=== PATIENT | female | born 1945 | race Caucasian/White ===

== ENCOUNTER 2023-07-27 12:44 | Inpatient (IN) | payer MEDICARE, OTHER, SELFPAY ==
[2023-07-27] VITALS (12 sets, daily range): BP systolic 101–169; BP diastolic 53–128; BMI 47.7; BMI 46.1
--- NOTE | 2023-07-27 07:59 | ED.GENMED ---
History of Present Illness
<DAVID Martin - Last Filed: 07/27/23 17:09>
General
Chief Complaint: Breathing Problem
Exam Limitations: none
Time Seen by Provider: 07/27/23 07:59
Nursing documentation reviewed up to this point in time: agreed with
History of Present Illness
History of Present Illness:
Patient is a 77-year-old female past medical history of COPD CHF on 2 L nasal cannula daily, chronic bilateral lymphedema of bilateral lower extremities presents to the ER for evaluation of shortness of breath. Patient reports she started with a
cough last night and has had worsening shortness of breath since.
Pt denies any fevers.
Patient has missed several doses of her Lasix.
Past History
<DAVID Martin - Last Filed: 07/27/23 17:09>
Past History
ED Past Medical History: Arrthythmia (Frequent PVCs), Asthma, CHF, HTN, Hypercholesterolemia, NIDDM, Other (Chronic lymphedema) and Other (Right lower extremity DVT October 2019)
ED Past Surgical History: Gynecological (Several D&Cs, miscarriage), Tonsilectomy and Other (Cancerous mass removed from right leg 20 years ago. Breast mass removed noncancerous.)
Social History
Tobacco: Non-smoker
Alcohol: None
Personal:
Living: with family
Employment: Retired
Family History
Family History: Other (Noncontributory)
Review of Systems
<DAVID Martin - Last Filed: 07/27/23 17:09>
Review of Systems
All Other Systems: ROS reviewed and negative except as documented in HPI and ROS
Constitutional: Denies fever
EENT: Reports no symptoms
Respiratory: Reports cough and trouble breathing
Cardiac: Reports no symptoms
ABD/GI: Reports no symptoms
Musculoskeletal: Reports other (chronic l/e edema )
Skin: Reports no symptoms
Psychiatric: Reports no symptoms
Phy Exam
<DAVID Martin - Last Filed: 07/27/23 17:09>
General Physical Exam
General Presentation: no apparent distress
General age: appears stated age
General Skin: warm and dry
General Habitus: elderly
General Mental: alert
General Hydration: appears well hydrated
Cardiovascular Exam
Cardiovascular Exam: regular rate/rhythm and normal peripheral pulses
Pulmonary Exam
Pulmonary Exam: generalized wheezing and other (+ cough )
Neurological Exam
Neurological Exam: alert and oriented x3
Musculoskeletal Exam
Musculoskeletal Exam: other (Chronic bilateral lymphedema with chronic skin changes )
Skin Exam
Skin Exam: normal color and warm/dry
Psychiatric Exam
Psychiatric Exam: normal mood/affect
Scores
<DAVID Martin - Last Filed: 07/27/23 17:09>
Heart Failure Risk
Heart Failure Risk Score: Not Applicable
Course
<DAVID Martin - Last Filed: 07/27/23 17:09>
Orders/Labs/Results
Orders:
Orders
07/27/23 07:58
Electrocardiogram (*1) Urgent
Reason for Study: Chest Pain
07/27/23 07:59
EKG- Treatment ONCE
07/27/23 08:00
Levalbuterol [Xopenex 0.63 mg Inhalant Solution] 0.63 mg INH R NOW STA
07/27/23 08:01
COVID-19 Antigen Urgent
Source: Nasal Swab
Complete Blood Count/With Diff Urgent
Comprehensive Metabolic Panel Urgent
NT-proBNP Urgent
Troponin I Urgent
Influenza A+B Rapid Molecular Urgent
SAMEERA Source: Nasal Swab
Specimen Description:
07/27/23 08:17
Dexamethasone Sod Phosphate [Decadron] 10 mg IV NOW STA
07/27/23 08:18
Furosemide [Lasix] 40 mg IV NOW STA
07/27/23 09:21
CXR [CR Chest Portable - 1 View] Urgent
Comment:
Reason For Exam: shortness of breath
Reason Study Needs to be Portable: Unable to Transport
07/27/23 Lunch
1800 calorie (15 carb) Diabetic
At Your Request: Full Participation
Diabetic Diet: Sodium, 2 Gram
Cholesterol Lowering
07/27/23 12:05
Admit/Transfer Patient As Directed
Co-Sign Provider:
Level of Care: Inpatient admission
Assign to:: Medical/Surgical
Physician / Group: lila ramsay
Diagnosis: Covid, respiratory failure
Reason for Hospitalization: Covid, respiratory failure
Expected length of stay greater than two midnights?: Yes
ELOS- Estimated Length of Stay in days: 3
I certify the patient meets the requirements for IP care: Yes
INFECTIOUS DISEASE CONSULT Routine
Consulting Provider: Lesly Monsivais
Was physician already notified: Yes
Reason for consult: covid, hypoxia
07/27/23 12:12
Code Status As Directed
Resuscitation Status: Full Code
07/27/23 12:53
Acetaminophen [Tylenol] 650 mg PO Q6HPRN PRN
Dextrose 50%-Water [Dextrose 50% Syringe] 12.5 grams IV [id number] PRN
Glucagon [GlucaGen] 1 mg IM PRN PRN
Levalbuterol Tartrate [Xopenex Hfa 45 Mcg Inhaler] 2 puff INH R Q4HPRN PRN
Oxycodone [Roxicodone] 5 mg PO Q4HPRN PRN
Repaglinide [Prandin] 0.5 mg PO BIDPRN PRN
07/27/23 12:53
HF DIETARY CONSULT Routine
HF EDUCATOR CONSULT Routine
Comment:
Activity As Directed
Activity Level: Ambulate
Bedside Glucose Monitoring As Directed
Frequency: AC&HS
Comment: Change to q6h if pt on TPN, tube feeding or not eating
Intake/ Output As Directed
Frequency: Per unit guidelines
Patient Education As Directed
Type: CHF folder
Comment: give on admission. Document in Interdisciplinary Education record
Sleep Apnea Assessment by RN As Directed
Comment:
Physician Instructions:
Vital Signs As Directed
Frequency: Other
Additional Instructions:: Q12 or per unit guidelines if more frequent.
Weight As Directed
Frequency: Daily
Type of Scale: Standing Scale
Comment: Daily morning weight. If unable to stand, use balanced bed scale.
Weight As Directed
Frequency: Once
Type of Scale: Standing Scale
Comment: Upon Admission. If unable to stand, use balanced bed scale.
Xopenex Reason for Use As Directed
Reason for ordering Xopenex instead of Albuterol: home med
Pulse Ox/cont/shift [RESP] Routine
Quantity: 1
Special Instructions: Daily pulse oximetry at rest. If greater than 92% at rest also obtain pulse oximetry
while ambulating as tolerated.
Ot Eval And Treat Routine
Pt Eval And Treat Routine
Activity Level: Ambulate
DX Deep Vein Thrombosis Video Routine
07/27/23 14:38
Procalcitonin Urgent
PCT Algorithmm Indication: Respiratory
07/27/23 16:30
Insulin Aspart Corrective Mod [Novolog Flexpen-Moderate Resistance] See Protocol SC AC
07/27/23 18:00
Diltiazem Extended Release [Cardizem Cd] 120 mg PO QPM
Enoxaparin Sodium [Lovenox] 40 mg SC QPM
07/27/23 20:00
Fluticasone/Salmeterol 115/21 [Advair Hfa 115/21 Mcg Inhaler] 2 puff INH R BID
07/27/23 22:00
Atorvastatin [Lipitor] 20 mg PO HS
07/28/23 06:00
Complete Blood Count/No Diff IN AM
Comprehensive Metabolic Panel IN AM
Glycohemoglobin (HgbA1c) IN AM
Magnesium IN AM
07/28/23 08:00
Dexamethasone Sod Phosphate [Decadron] 6 mg IV Q24H
Furosemide [Lasix] 80 mg PO DAILY
07/28/23 12:00
Aspirin Low Dose EC [Aspir Low (Enteric Coated)] 81 mg PO NOON
Multivitamin [Theragran] 1 tablet PO NOON
07/29/23 06:00
Complete Blood Count/No Diff IN AM
Comprehensive Metabolic Panel IN AM
07/30/23 06:00
Complete Blood Count/No Diff IN AM
Comprehensive Metabolic Panel IN AM
07/31/23 06:00
Complete Blood Count/No Diff IN AM
Comprehensive Metabolic Panel IN AM
08/01/23 06:00
Complete Blood Count/No Diff IN AM
Comprehensive Metabolic Panel IN AM
08/02/23 08:00
Metolazone [Zaroxolyn] 2.5 mg PO RYAN@0800
Potassium Chloride [KCl] 20 meq PO RYAN@0800
Abnormal Lab Results
07/27/23
08:01
RBC 4.14 L 10^6/uL
(4.20-5.40)
Hgb 11.8 L g/dL
(12.0-16.0)
Hct 35.7 L %
(37.0-47.0)
RDW 15.2 H %
(11.5-14.5)
Absolute Lymphs (auto) 0.4 L 10^3/uL
(1.2-3.4)
Absolute Monos (auto) 0.8 H 10^3/uL
(0.1-0.6)
Neutrophils % 77.7 H %
(42.2-75.2)
Lymphocytes % 6.0 L %
(20.5-51.1)
Monocytes % 13.8 H %
(1.7-9.3)
Carbon Dioxide 32 H mmol/L
(22-30)
BUN 42 H mg/dl
(7-17)
Creatinine 1.2 H mg/dL
(0.6-1.0)
Glucose 167 H mg/dl
(70-99)
SARS-CoV-2 Antigen Positive A
(Negative)
07/27/23 08:01
07/27/23 08:01
Vital Signs
Initial and Last Documented VS:
Initial Vital Signs
Temp Pulse Resp BP Pulse Ox
98 F 88 18 142/123 98
07/27/23 08:02 07/27/23 08:02 07/27/23 08:02 07/27/23 08:02 07/27/23 08:02
Last Documented Vital Signs
Temp Pulse Resp BP Pulse Ox
98.8 F 56 18 156/68 95
07/27/23 15:00 07/27/23 15:27 07/27/23 15:27 07/27/23 15:00 07/27/23 15:27
Director Of Archives consulted with Physician
Director Of Archives consulted with physician?: Yes
Name of Physician Consulted: Riley
<Syed Lin, DO - Last Filed: 07/27/23 08:54>
Orders/Labs/Results
Orders:
Orders
07/27/23 07:58
Electrocardiogram (*1) Urgent
Reason for Study: Chest Pain
07/27/23 07:59
EKG- Treatment ONCE
07/27/23 08:00
Levalbuterol [Xopenex 0.63 mg Inhalant Solution] 0.63 mg INH R NOW STA
07/27/23 08:01
COVID-19 Antigen Urgent
Source: Nasal Swab
Complete Blood Count/With Diff Urgent
Comprehensive Metabolic Panel Urgent
NT-proBNP Urgent
Troponin I Urgent
Influenza A+B Rapid Molecular Urgent
SAMEERA Source: Nasal Swab
Specimen Description:
07/27/23 08:17
Dexamethasone Sod Phosphate [Decadron] 10 mg IV NOW STA
07/27/23 08:18
Furosemide [Lasix] 40 mg IV NOW STA
07/27/23 09:21
CXR [CR Chest Portable - 1 View] Urgent
Comment:
Reason For Exam: shortness of breath
Reason Study Needs to be Portable: Unable to Transport
07/27/23 Lunch
1800 calorie (15 carb) Diabetic
At Your Request: Full Participation
Diabetic Diet: Sodium, 2 Gram
Cholesterol Lowering
07/27/23 12:05
Admit/Transfer Patient As Directed
Co-Sign Provider:
Level of Care: Inpatient admission
Assign to:: Medical/Surgical
Physician / Group: lila ramsay
Diagnosis: Covid, respiratory failure
Reason for Hospitalization: Covid, respiratory failure
Expected length of stay greater than two midnights?: Yes
ELOS- Estimated Length of Stay in days: 3
I certify the patient meets the requirements for IP care: Yes
INFECTIOUS DISEASE CONSULT Routine
Consulting Provider: Lesly Monsivais
Was physician already notified: Yes
Reason for consult: covid, hypoxia
07/27/23 12:12
Code Status As Directed
Resuscitation Status: Full Code
07/27/23 12:53
Acetaminophen [Tylenol] 650 mg PO Q6HPRN PRN
Dextrose 50%-Water [Dextrose 50% Syringe] 12.5 grams IV [id number] PRN
Glucagon [GlucaGen] 1 mg IM PRN PRN
Levalbuterol Tartrate [Xopenex Hfa 45 Mcg Inhaler] 2 puff INH R Q4HPRN PRN
Oxycodone [Roxicodone] 5 mg PO Q4HPRN PRN
Repaglinide [Prandin] 0.5 mg PO BIDPRN PRN
07/27/23 12:53
HF DIETARY CONSULT Routine
HF EDUCATOR CONSULT Routine
Comment:
Activity As Directed
Activity Level: Ambulate
Bedside Glucose Monitoring As Directed
Frequency: AC&HS
Comment: Change to q6h if pt on TPN, tube feeding or not eating
Intake/ Output As Directed
Frequency: Per unit guidelines
Patient Education As Directed
Type: CHF folder
Comment: give on admission. Document in Interdisciplinary Education record
Sleep Apnea Assessment by RN As Directed
Comment:
Physician Instructions:
Vital Signs As Directed
Frequency: Other
Additional Instructions:: Q12 or per unit guidelines if more frequent.
Weight As Directed
Frequency: Daily
Type of Scale: Standing Scale
Comment: Daily morning weight. If unable to stand, use balanced bed scale.
Weight As Directed
Frequency: Once
Type of Scale: Standing Scale
Comment: Upon Admission. If unable to stand, use balanced bed scale.
Xopenex Reason for Use As Directed
Reason for ordering Xopenex instead of Albuterol: home med
Pulse Ox/cont/shift [RESP] Routine
Quantity: 1
Special Instructions: Daily pulse oximetry at rest. If greater than 92% at rest also obtain pulse oximetry
while ambulating as tolerated.
Ot Eval And Treat Routine
Pt Eval And Treat Routine
Activity Level: Ambulate
DX Deep Vein Thrombosis Video Routine
07/27/23 14:38
Procalcitonin Urgent
PCT Algorithmm Indication: Respiratory
07/27/23 16:30
Insulin Aspart Corrective Mod [Novolog Flexpen-Moderate Resistance] See Protocol SC AC
07/27/23 18:00
Diltiazem Extended Release [Cardizem Cd] 120 mg PO QPM
Enoxaparin Sodium [Lovenox] 40 mg SC QPM
07/27/23 20:00
Fluticasone/Salmeterol 115/21 [Advair Hfa 115/21 Mcg Inhaler] 2 puff INH R BID
07/27/23 22:00
Atorvastatin [Lipitor] 20 mg PO HS
07/28/23 06:00
Complete Blood Count/No Diff IN AM
Comprehensive Metabolic Panel IN AM
Glycohemoglobin (HgbA1c) IN AM
Magnesium IN AM
07/28/23 08:00
Dexamethasone Sod Phosphate [Decadron] 6 mg IV Q24H
Furosemide [Lasix] 80 mg PO DAILY
07/28/23 12:00
Aspirin Low Dose EC [Aspir Low (Enteric Coated)] 81 mg PO NOON
Multivitamin [Theragran] 1 tablet PO NOON
07/29/23 06:00
Complete Blood Count/No Diff IN AM
Comprehensive Metabolic Panel IN AM
07/30/23 06:00
Complete Blood Count/No Diff IN AM
Comprehensive Metabolic Panel IN AM
07/31/23 06:00
Complete Blood Count/No Diff IN AM
Comprehensive Metabolic Panel IN AM
08/01/23 06:00
Complete Blood Count/No Diff IN AM
Comprehensive Metabolic Panel IN AM
08/02/23 08:00
Metolazone [Zaroxolyn] 2.5 mg PO RYAN@0800
Potassium Chloride [KCl] 20 meq PO RYAN@0800
Abnormal Lab Results
07/27/23
08:01
RBC 4.14 L 10^6/uL
(4.20-5.40)
Hgb 11.8 L g/dL
(12.0-16.0)
Hct 35.7 L %
(37.0-47.0)
RDW 15.2 H %
(11.5-14.5)
Absolute Lymphs (auto) 0.4 L 10^3/uL
(1.2-3.4)
Absolute Monos (auto) 0.8 H 10^3/uL
(0.1-0.6)
Neutrophils % 77.7 H %
(42.2-75.2)
Lymphocytes % 6.0 L %
(20.5-51.1)
Monocytes % 13.8 H %
(1.7-9.3)
Carbon Dioxide 32 H mmol/L
(22-30)
BUN 42 H mg/dl
(7-17)
Creatinine 1.2 H mg/dL
(0.6-1.0)
Glucose 167 H mg/dl
(70-99)
SARS-CoV-2 Antigen Positive A
(Negative)
07/27/23 08:01
07/27/23 08:01
Vital Signs
Initial and Last Documented VS:
Initial Vital Signs
Temp Pulse Resp BP Pulse Ox
98 F 88 18 142/123 98
07/27/23 08:02 07/27/23 08:02 07/27/23 08:02 07/27/23 08:02 07/27/23 08:02
Last Documented Vital Signs
Temp Pulse Resp BP Pulse Ox
98.8 F 56 18 156/68 95
07/27/23 15:00 07/27/23 15:27 07/27/23 15:27 07/27/23 15:00 07/27/23 15:27
<DAVID Martin - Last Filed: 07/27/23 17:09>
MDM/Problems Addressed
MDM/Problems Addressed:
Patient is a 77-year-old female oxygen dependent with a history of COPD CHF presents with cough and shortness of breath. Patient has missed several doses of the Lasix. Patient presents with cough with wheezing here in the ER. She was found to be
COVID-positive. She presents hypertensive afebrile normal white count chemistries at baseline, hemoglobin at baseline.
Patient evaluated by ED physician will admit for hypoxia, component of CHF worsening dyspnea with being COVID-positive and COPD history
Chronic conditions affecting care:
CHF COPD home O2
<DAVID Martin - Last Filed: 07/27/23 17:09>
*Radiology
Radiology exam reviewed: radiology read reviewed
*Pulse Oximetry
Patient hypoxic: no
*EKG
Interpreted by ED Provider?: Yes
Heart Rate: 83
Rate: normal
Rhythm: sinus and other (pvc and pacs )
Ischemia: non-specific ST changes
<Syed Lin DO - Last Filed: 07/27/23 08:54>
*Critical Care Note
Total Time (30-74mins, 75-104mins- exclusive of procedures): 33 min
comment:
The high probability of a clinically significant, sudden or life threatening deterioration of the cardiopulmonary system(s) required my full and direct attention, intervention and personal management. The aggregate critical care time was 33 minutes.
This time is in addition to time spent performing reported procedures but includes the following:
[x] Data Review and interpretation
[x] Patient assessment and monitoring of vital signs
[x] Documentation
[x] Medication orders and management
ED Attending Note
<DAVID Martin - Last Filed: 07/27/23 17:09>
-
Portions of this chart may have been created with voice recognition software.� Occasional wrong word or��sound alike� substitutions may have occurred due to the inherent limitations of voice recognition software.
<Syed Lin DO - Last Filed: 07/27/23 08:54>
ED Attending Note
Patient seen and examined by attending physician: Yes
I performed the substantive portion of visit, reviewed & personally made and approve the management plan that is documented in note by myself or IQRA.: Yes
ED Attending Note:
I have seen and evaluated the patient with a [id number] encounter. I have spoken to the advance practicer provider and involved in the medical history, the physical exam, medical decision making.
Evaluation and management service: agree unless noted differently below.
Results interpretation: agree unless noted differently below.
Focused HPI: 77-year-old female presenting for evaluation of shortness of breath. She does have a history of COPD and CHF. She does admit that she missed a dose of Lasix recently. She is on 2 L of oxygen at home but has required increased
oxygenation by EMS. She complains of feeling sick past few days
Physical exam: Tachypnea, crackles at bases, chronic lymphedema
Medical Decision Making: Patient found to COVID-positive. Patient given steroids and nebulizer treatment to treat COPD. Will give dose of Lasix and obtain x-ray to rule out underlying pulmonary edema. Patient will ultimately require admission
Discharge Plan
Departure
Patient Disposition: Admit
Date of Disposition: 07/27/23
Time of Disposition: 09:56
Admit to: Med/Surg
Admit to doctor: hospitalist
Presentation/result/management discussed w/ accepting MD/DO: Hospitalist
Patient with high blood pressure during this ER visit?: Yes
Condition: Fair
Covid-19: Confirmed COVID-19
Discharge Problem:
COVID-19, Acute dyspnea
Interventions
Interventions:
*Risk Screen - Suicide Last Done: 07/27/23 14:17
*General Assessment Last Done: 07/27/23 08:02
*Neglect/Abuse Screening Last Done: 07/27/23 08:02
ED- Fall Risk Assessment Last Done: 07/27/23 08:02
*ED COVID-19 Vaccine History Last Done: 07/27/23 14:17
ED- Cardiac Assessment Last Done: 07/27/23 08:02
ED- Pulmonary Assessment Last Done: 07/27/23 08:02
[2023-07-27] MEDS: XOPENEX 0.63 MG INHALANT SOLUTION 0.630000000000000004 MG INH (08:12)
[2023-07-27 08:15] LABS: % Basophils 0.9 % (0-2); % Eosinophils 1.4 % (0-6); % Immature Granulocytes 0.2 % (0-0.5); % Monocytes 13.8 % (1.7-9.3); % Neutrophils 77.7 % (42.2-75.2); Absolute Basophils 0.1 10^3/uL (0-0.2); Absolute Eosinophils 0.1 10^3/uL (0-0.7); Absolute Lymphocytes 0.4 10^3/uL (1.2-3.4); Absolute Monocytes 0.8 10^3/uL (0.1-0.6); Absolute Neutrophils 4.6 10^3/uL (1.4-6.5); COVID-19 Antigen Positive (Negative); Hematocrit 35.7 % (37.0-47.0); Hemoglobin 11.8 g/dL (12.0-16.0); Mean Corp Hgb Conc. 33.1 g/dL (33.0-37.0); Mean Corpuscular Hgb 28.5 pg (27.0-31.0); Mean Corpuscular Volume 86.2 fL (81.0-99.0); Mean Platelet Volume 9.6 fL (7.4-10.4); Nucleated Red Blood Cells % 0 %; Platelet Count 200 10^3/uL (130-400); Red Blood Cell Count 4.14 10^6/uL (4.20-5.40); Red Cell Dist. Width 15.2 % (11.5-14.5); White Blood Cell Count 5.9 10^3/uL (4.8-10.8)
[2023-07-27] MEDS: DECADRON 10 MG IV (08:19)
[2023-07-27] MEDS: LASIX 40 MG IV ×2 (08:23→15:45)
[2023-07-27 08:28] LABS: ALT (SGPT) 24 U/L (0-35); AST (SGOT) 35 U/L (14-36); Albumin 3.8 g/dl (3.5-5.0); Alkaline Phosphatase 114 U/L (38-126); Blood Urea Nitrogen 42 mg/dl (7-17); Calcium 8.4 mg/dl (8.4-10.2); Carbon Dioxide 32 mmol/L (22-30); Chloride 100 mmol/L (98-107); Estimated Creatinine Clearance 48 ml/min; Glucose 167 mg/dl (70-99); Potassium 3.9 mmol/L (3.5-5.1); Sodium 136 mmol/L (135-145); Total Bilirubin 1.2 mg/dl (0.2-1.3); Total Protein 7.5 g/dl (6.3-8.2); eGFR 46.05
[2023-07-27 08:38] LABS: NT-proBNP 7630 pg/ml
--- NOTE | 2023-07-27 08:43 | EDRN ---
the pt pressed the call disla and stated to this RN that she needed to urinate, the pt was agreeable to pure wick, this RN and tech removed the pts pants and undergarments and placed pure wick, this RN noticed that in the groin area the pt has
breakdown with redness, provider notified
--- NOTE | 2023-07-27 11:49 | HPS.HSE ---
Family Physician
-
Family Physician: Miguel Bella
Chief Complaint
-
SOB
History of Present Illness
77-year-old female with a past medical history of sleep apnea, stopped using CPAP few years ago, asthma, history of DVT, heart failure, chronic hypoxic respiratory failure on 1-2 L, chronic lymphedema, hypertension, hyperlipidemia, type 2 diabetes,
and morbid obesity who presents with shortness of breath and coughing since last night. Patient is usually on 2 L of oxygen, she is currently requiring 5. She denies fever, denies chills. No nausea, no vomiting. No abdominal pain, no diarrhea,
no dysuria. Patient states that her daughter is also sick, she works at [employer].
Medical History
Past Medical History
Past Medical History: Reports Other
Additional Past Medical History:
Chronic hypoxic respiratory failure on home oxygen 1-2 L via NC
Chronic HFrEF (40-45%)
Frequent PVCs and bigeminy
Asthma
Chronic Lymphedema and chronic venous stasis changes
Hypertension
HLD
DM II
MARIAMA
Peripheral Neuropathy
History of DVT
Morbid Obesity
Medication and dietary non-adherence
Past Surgical History: Reports Other
Additional Past Surgical History:
B/l cataract surgery, Several D&Cs, miscarriage, Tonsilectomy, Cancerous mass removed from right leg 20 years ago, Breast mass removed noncancerous.
Social History
Tobacco: Non-smoker (Never smoked )
Alcohol: None
Drug: None
Personal:
Living: With Family
Family History
Family History: Not pertinent
Allergies / Home Medications
Allergies reflects when Allergies were last updated in [facility].
Home Medications with original date entered in [facility]
Allergy/Medication List:
Allergies
Allergy/AdvReac Type Severity Reaction Status Date / Time
albuterol Allergy 'could not Verified 04/26/23 10:02
breath'
cefuroxime [From Ceftin] Allergy facial Verified 04/28/23 09:47
droop,lip
swell/Margie
ceftrx,
cefepime,
cefazolin
latex Allergy Rash Verified 04/26/23 10:02
levofloxacin [From Levaquin] Allergy facial Verified 04/26/23 10:02
droop,
rash,
numbness
lisinopril Allergy Shortness Verified 04/26/23 10:02
of Breath
naproxen Allergy Rash Verified 04/26/23 10:02
NSAIDS (Non-Steroidal Allergy Rash Verified 04/26/23 10:02
Anti-Inflamma
poison aroldo extract Allergy Unknown Verified 04/26/23 10:02
poison oak extract Allergy Unknown Verified 04/26/23 10:02
Home Medications Table - record
Medication Instructions Recorded Confirmed
multivitamin with folic acid 400 1 tab PO NOON Supplement 09/22/16 07/27/23
mcg tablet (Tab-A-Toy)
atorvastatin 20 mg tablet 20 mg PO HS High cholesterol 11/08/19 07/27/23
repaglinide 0.5 mg tablet 0.5 mg PO BIDPRN PRN BLOOD SUGAR 07/01/22 07/27/23
>150
aspirin 81 mg tablet,delayed 81 mg PO NOON Blood clot 09/01/22 07/27/23
release prevention/tx
metolazone 2.5 mg tablet 2.5 mg PO RYAN Fluid 03/15/23 07/27/23
Retention/Swelling
furosemide 80 mg tablet 80 mg PO DAILY Fluid 04/26/23 07/27/23
Retention/Swelling
acetaminophen 325 mg tablet 650 mg PO Q6H PRN mild pain 07/27/23 07/27/23
(Tylenol)
diltiazem HCl 120 mg 120 mg PO QPM HIGH BLOOD PRESSURE 07/27/23 07/27/23
capsule,extended release 24 hr
fluticasone propionate 115 2 puff inhalation R BID 07/27/23 07/27/23
mcg-salmeterol 21 mcg/actuation
HFA inhaler (Advair HFA)
levalbuterol tartrate 45 2 inh inhalation R DAILYPRN PRN sob 07/27/23 07/27/23
mcg/actuation aerosol inhaler
(Xopenex HFA)
potassium chloride 20 mEq 20 meq PO RYAN Supplement 07/27/23 07/27/23
tablet,extended
release(part/cryst) (Klor-Con M)
Review of Systems
-
A 12 point ROS was completed and negative except as noted: Yes
Physical Exam
Vital Signs
Vital Signs
Temp Pulse Resp BP Pulse Ox
98 F 77 18 144/128 98
07/27/23 08:02 07/27/23 10:00 07/27/23 10:00 07/27/23 10:00 07/27/23 08:02
Physical Exam
General: No Apparent Distress (Appears to not feel well) and Obese
HEENT: NormoCephalic, Anicteric and Moist mucous membranes
Respiratory: Wheezes
Cardiac: S1/S2
GI: Soft, Non Tender, Non Distended and Normal Bowel Sounds
Musculoskeletal: Edema, Left Lower Extremity and Edema, Right Lower Extremity
Skin: Other (Hyperpigmentation of shins reflective of chronic venous stasis dermatitis)
Neuro: Awake, Alert and Oriented
Psych: Calm
Laboratory Results
-
07/27/23 08:01
07/27/23 08:01
Laboratory Results
Total Bilirubin 1.2 mg/dl (0.2-1.3) 07/27/23 08:01
AST 35 U/L (14-36) 07/27/23 08:01
ALT 24 U/L (0-35) 07/27/23 08:01
Alkaline Phosphatase 114 U/L (38-126) 07/27/23 08:01
Troponin I 0.020 ng/ml 07/27/23 08:01
Impression/Plan
-
HPI: 77-year-old female with a past medical history of sleep apnea, stopped using CPAP few years ago, asthma, history of DVT, heart failure, chronic hypoxic respiratory failure on 1-2 L, chronic lymphedema, hypertension, hyperlipidemia, type 2
diabetes, and morbid obesity who presents with shortness of breath and coughing since last night. Patient is usually on 2 L of oxygen, she is currently requiring 5. She denies fever, denies chills. No nausea, no vomiting. No abdominal pain, no
diarrhea, no dysuria. Patient states that her daughter is also sick, she works at [employer].
#Acute on chronic hypoxic respiratory failure
#Acute coronavirus infection
#History of asthma
Symptoms began 07/26, needs isolation for 10 days
CXR shows 'Findings suspicious for mild congestive heart failure. Mild asymmetric pulmonary edema versus mild/early pneumonia in the RLL'
Patient is currently requiring 5 L of oxygen, she usually requires 2 L at home
Check procalcitonin, treat with dexamethasone D1, bronchodilators, consult ID to consider remdesivir
#Chronic HFrEF (40-45%)
#Chronic lymphedema and chronic venous stasis changes
Status post Lasix 40 mg IV in the ER
Resume home Lasix 80 mg daily, and metolazone on Sundays
#Type 2 diabetes
Check hemoglobin A1c
Likely will need insulin with dexamethasone
#Stage IIIb chronic kidney disease
Creatinine at baseline, continue to monitor
#Benign essential hypertension
Continue home diltiazem
#Hyperlipidemia
Continue statin
#Morbid obesity with a BMI of 47.7
Affects all aspects of care
DVT prophylaxis�subcu Lovenox
Full code
Total time spent to see the patient on the floor, examine the patient, review data and lab results, discuss treatment plan with patient, nursing staff around 75 minutes.
--- NOTE | 2023-07-27 12:19 | CON.ID ---
Consultation
-
Date/Time Consultation Requested: July 27, 2023 1210
Date/Time Consultation Performed: July 27, 2023 1220
Requesting Provider: Dr. Halle Kan
Performing Provider: Dr. Lesly Monsivais
Reason for Consultation: COVID, respiratory failure
Chief Complaint / Past History
Chief Complaint
Cough and SOB
History of Present Illness
77-year-old female with history of diabetes mellitus, asthma, heart failure, sleep apnea on nocturnal oxygen, lymphedema who started having cough nonproductive and shortness of breath yesterday. Short of breath got worse. She checked her O2
saturation this morning and it was in the 60s. She came to the ER this morning. COVID positive. Chest x-ray shows congestive heart failure. No fevers or chills. Positive rhinorrhea and headache. No sore throat. Her daughter who lives with her
has been ill for the past week. Today daughter also tested positive for COVID. Patient reports she has never received the COVID-vaccine. Positive malaise. No worsening lower extremity edema.
Past History
Additional Past Medical History:
Hypertension
Diabetes mellitus, type II
Asthma
Heart failure, EF 45-50%
NSTEMI
Aortic stenosis
Right lower extremity DVT
Lymphedema
Venous insufficiency
Sleep apnea on nocturnal oxygen
Benign breast mass resection
Allergy History:
albuterol Allergy (Verified 04/26/23 10:02)
'could not breath'
cefuroxime [From Ceftin] Allergy (Verified 04/28/23 09:47)
facial droop,lip swell/Margie ceftrx, cefepime, cefazolin
latex Allergy (Verified 04/26/23 10:02)
Rash
levofloxacin [From Levaquin] Allergy (Verified 04/26/23 10:02)
facial droop, rash, numbness
lisinopril Allergy (Verified 04/26/23 10:02)
Shortness of Breath
naproxen Allergy (Verified 04/26/23 10:02)
Rash
NSAIDS (Non-Steroidal Anti-Inflamma Allergy (Verified 04/26/23 10:02)
Rash
poison aroldo extract Allergy (Verified 04/26/23 10:02)
Unknown
poison oak extract Allergy (Verified 04/26/23 10:02)
Unknown
Medications Reviewed: Yes
Current Antibiotics:
none
Social History
Tobacco: Non-Smoker
Alcohol: None
Drug: None
Living: Other (pets: 1 dog, 3 cats)
Employment: Retired
Family History
Family History: Not Pertinent
Review of Systems
Review of Systems
General: Change in Appetite; Negative Fever or Chills
HEENT: Headache; Negative Pharyngitis
Cardiovascular: Negative Chest Pain
Respiratory: Dyspnea and Cough; Negative Sputum Production
Gasteroenterology: Other (no dairrhea); Negative Nausea or Vomiting
Genital / Urological: Negative Dysuria or Flank Pain
Skin / Hair / Nails: Negative Rash
Neurological: Negative Dizziness
All systems: All other systems were reviewed and were negative
Vital Signs
Temp Pulse Resp BP Pulse Ox
98 F 77 18 144/128 98
07/27/23 08:02 07/27/23 10:00 07/27/23 10:00 07/27/23 10:00 07/27/23 08:02
Physical Exam
Physical Exam
Constitutional: Obese
Eyes: No Conjunctival Hemorrhage and Sclera Anicteric
Cardiovascular: Regular Rate and S1/S2
Pulmonary: Rales (bases)
Gastrointestinal: Soft, Non Tender, Non Distended and Normal Bowel Sounds
Genito-Urinary: Negative CVA Tenderness
Extremities: Edema (BLE lymphedema chronic changes )
Neurological: AO x 3
Lab / Diagnostic Study Results
07/27/23 08:01
07/27/23 08:01
Abs Immat Gran (auto) 0.0 10^3/uL (0-0.05) 07/27/23 08:01
Absolute Neuts (auto) 4.6 10^3/uL (1.4-6.5) 07/27/23 08:01
Absolute Lymphs (auto) 0.4 10^3/uL (1.2-3.4) L 07/27/23 08:01
Absolute Monos (auto) 0.8 10^3/uL (0.1-0.6) H 07/27/23 08:01
Absolute Basos (auto) 0.1 10^3/uL (0-0.2) 07/27/23 08:01
Immature Gran % 0.2 % (0-0.5) 07/27/23 08:01
Neutrophils % 77.7 % (42.2-75.2) H 07/27/23 08:01
Lymphocytes % 6.0 % (20.5-51.1) L 07/27/23 08:01
Monocytes % 13.8 % (1.7-9.3) H 07/27/23 08:01
Eosinophils % 1.4 % (0-6) 07/27/23 08:01
Basophils % 0.9 % (0-2) 07/27/23 08:01
Microbiology Results
Micro:
07/27/23 08:01 Influenza Types A & B (ROBER) - Final
Nasal Swab Negative for Influenza A & B, NAAT
Negative results must be combined with clinical observations
and patient history.
Nucleic Acid Amplification test (NAAT)performed on the
[employer] platform.
07/27/23 CXR: Findings suspicious for mild congestive heart failure. Mild asymmetric pulmonary edema versus mild/early pneumonia in the right lower lobe.
Assessment / Plan
# Moderate COVID infection. (exposed from daughter)
-Unvaccinated
-Symptom onset 07/26/23
-COVID + 1/29/24.
-Acute on chronic hypoxemic respiratory failure on 6L 02, saturating 98%
- CXR suggestive of congestive heart failure.
- Start Paxlovid bid x 5d
-Hold atorvastatin while on Paxlovid
-Continue dexamethasone.
- Wean oxygen as tolerated.
-COVID isolation x 10 days.
--- NOTE | 2023-07-27 14:54 | SUR.OPER ---
Patient arrived from the [facility] on 5L of O2. Patient declined PT due to not feeling good. Patient placed on telemonitor due to hx of bradycardia.
[2023-07-27 15:24] LABS: Procalcitonin 0.18 ng/ml (0.0-0.25)
[2023-07-27] MEDS: XOPENEX HFA 45 MCG INHALER 4 PUFF INH ×2 (15:27→20:03)
[2023-07-27] MEDS: PAXLOVID 150-100 MG DOSE PACK 1 DOSE PO ×2 (15:39→20:35)
[2023-07-27] MEDS: KCL 20 MEQ PO (15:39)
[2023-07-27 17:50] LABS: Glucose - Point of Care 219 mg/dl (70-99)
[2023-07-27] MEDS: TYLENOL 650 MG PO (17:50)
[2023-07-27] MEDS: PHENERGAN WITH CODEINE SYRUP 5 ML PO (17:50)
[2023-07-27] MEDS: CARDIZEM CD 120 MG PO (17:50)
[2023-07-27] MEDS: LOVENOX 40 MG SC (17:50)
[2023-07-27] MEDS: NOVOLOG FLEXPEN-MODERATE RESISTANCE 3 UNITS SC (17:55)
[2023-07-27 21:47] LABS: Glucose - Point of Care 228 mg/dl (70-99)
[2023-07-28] MEDS: ANESTHETIC LOZENGE 1 LOZENGE PO ×3 (05:25→17:25)
[2023-07-28 05:51] VITALS: BMI 42.0
[2023-07-28 06:13] LABS: Hematocrit 34.9 % (37.0-47.0); Hemoglobin 11.4 g/dL (12.0-16.0); Mean Corp Hgb Conc. 32.7 g/dL (33.0-37.0); Mean Corpuscular Hgb 27.7 pg (27.0-31.0); Mean Corpuscular Volume 84.7 fL (81.0-99.0); Mean Platelet Volume 9.7 fL (7.4-10.4); Platelet Count 200 10^3/uL (130-400); Red Blood Cell Count 4.12 10^6/uL (4.20-5.40); Red Cell Dist. Width 14.9 % (11.5-14.5); White Blood Cell Count 3.4 10^3/uL (4.8-10.8)
[2023-07-28 07:01] LABS: ALT (SGPT) 24 U/L (0-35); AST (SGOT) 26 U/L (14-36); Albumin 3.2 g/dl (3.5-5.0); Alkaline Phosphatase 101 U/L (38-126); Blood Urea Nitrogen 52 mg/dl (7-17); Calcium 8.4 mg/dl (8.4-10.2); Carbon Dioxide 28 mmol/L (22-30); Chloride 98 mmol/L (98-107); Estimated Creatinine Clearance 41 ml/min; Glucose 154 mg/dl (70-99); Magnesium 2.5 mg/dl (1.6-2.3); Potassium 4.1 mmol/L (3.5-5.1); Sodium 137 mmol/L (135-145); Total Bilirubin 0.9 mg/dl (0.2-1.3); Total Protein 6.7 g/dl (6.3-8.2); eGFR 41.83
[2023-07-28 07:15] VITALS: BP 127/70
[2023-07-28] MEDS: XOPENEX HFA 45 MCG INHALER INH (07:31)
[2023-07-28 08:23] LABS: Glucose - Point of Care 139 mg/dl (70-99)
--- NOTE | 2023-07-28 08:23 | W.PN.HOSP.TC ---
Today's Communication/Plan
-
See bold
Assessment / Plan
Assessment / Plan
HPI: 77-year-old female with a past medical history of sleep apnea, stopped using CPAP few years ago, asthma, history of DVT, heart failure, chronic hypoxic respiratory failure on 1-2 L, chronic lymphedema, hypertension, hyperlipidemia, type 2
diabetes, and morbid obesity who presents with shortness of breath and coughing since last night.� Patient is usually on 2 L of oxygen, she is currently requiring 5.� She denies fever, denies chills.� No nausea, no vomiting.� No abdominal pain, no
diarrhea, no dysuria.� Patient states that her daughter is also sick, she works at [employer].
#Acute on chronic hypoxic respiratory failure
#Acute coronavirus infection
#History of asthma
Symptoms began 07/26, needs isolation for 10 days
CXR shows 'Findings suspicious for mild congestive heart failure. Mild asymmetric pulmonary edema versus mild/early pneumonia in the RLL'
Patient is currently requiring 4 L of oxygen, she usually requires 2 L at home
Procalcitonin negative, continue dexamethasone day 2, bronchodilators
ID started Paxlovid
#Chronic HFrEF (40-45%)
#Chronic lymphedema and chronic venous stasis changes
Status post Lasix 40 mg IV in the ER
She is on Lasix 80 mg p.o. daily, and metolazone on Sundays
Will give Lasix 80 mg IV x 1 today, likely can resume po tomorrow
#Type 2 diabetes
Hemoglobin A1c 6.1
Diabetic diet, sliding scale insulin
#Stage IIIb chronic kidney disease
Creatinine at baseline, continue to monitor
#Benign essential hypertension
Continue home diltiazem
#Hyperlipidemia
Continue statin
#Chronic venous stasis dermatitis
#Chronic lymphedema
#Morbid obesity with a BMI of 47.7
Affects all aspects of care
DVT prophylaxis�subcu Lovenox
Full code
Physical Exam
General: Morbidly obese, appears to not feel well, no acute distress
HEENT: Normocephalic, Atraumatic, EOMI, MMM
Respiratory: Coarse breath sounds with scattered minimal wheezing
Cardiac: Normal S1/S2, Regular Rate and Rhythm
GI: Soft, Nontender, Nondistended, Normal Bowel Sounds
Extremities: No Clubbing, Cyanosis
Chronic bilateral lymphedema noted
Neuro: Nonfocal/Grossly Intact
Psych: Calm, Cooperative
Derm: Hyperpigmentation of the shins reflective of chronic venous stasis dermatitis
Anticipated Discharge: > 48 hours
Subjective/Interval History
-
Date of Service: July 28, 2023
Patient continues to cough and feels short of breath.
Objective Data
-
Labs:
Laboratory Results
07/28/23
05:56
WBC 3.4 L
Hgb 11.4 L
Hct 34.9 L
Plt Count 200
Sodium 137
Potassium 4.1
Chloride 98
Carbon Dioxide 28
BUN 52 H
Creatinine 1.3 H
Glucose 154 H
Calcium 8.4
Total Bilirubin 0.9
AST 26
ALT 24
Alkaline Phosphatase 101
Vital Signs:
Vital Signs
Temp Pulse Resp BP Pulse Ox
97.8 F 63 20 101/53 97
07/27/23 23:10 07/27/23 23:10 07/27/23 23:10 07/27/23 23:10 07/27/23 23:10
I&O
07/27/23 07/28/23 07/29/23
06:59 06:59 06:59
Intake Total 460 / 460
Output Total 600 / 600
Balance -140 / -140
[2023-07-28] MEDS: NOVOLOG FLEXPEN-MODERATE RESISTANCE SC (08:41)
[2023-07-28] MEDS: LASIX 80 MG IV (08:42)
[2023-07-28] MEDS: DECADRON 6 MG IV (08:42)
[2023-07-28] MEDS: KCL 20 MEQ PO (08:42)
[2023-07-28] MEDS: PAXLOVID 150-100 MG DOSE PACK 1 DOSE PO ×2 (08:50→20:57)
[2023-07-28 10:20] LABS: Glycohemoglobin (HgbA1c) 6.1 % (4.0-5.6)
--- NOTE | 2023-07-28 11:45 | WOUNDNOTE ---
BUTTOCKS AND SACRUM
--- NOTE | 2023-07-28 11:47 | WOUNDNOTE ---
R POSTERIOR THIGH INTO GLUTEAL FOLD
--- NOTE | 2023-07-28 11:51 | WOUNDNOTE ---
L POSTERIOR THIGH INTO GLUTEAL CREASE
--- NOTE | 2023-07-28 11:52 | WOUNDNOTE ---
WON RN note: Patient admitted with COVID -19 and acute dyspnea.
See H&P for complete history. Patient lives with family and states she's current with VN.
PMH: CHF, aortic stenosis, HTN, chronic lymphedema, RLE DVT 10/2019, venous insufficiency, asthma, DM, anemia, sleep apnea, obesity, pulmonary HTN, CKD3a, benign R thigh skin lesion excision, Buttocks with stage 2 PI's, MASD in skin folds and
diabetic toe ulcers.
Wound Location and type/assessment: KNown to service from previous admissions, last seen 04/27/23. Patient admitted with healing buttocks stage 2 PI mixed with MASD, L buttock open, pink base. Posterior thighs going into gluteal crease with MASD vs
healing stage 2 PI. Despite Purwick in use, patient soiled pad with urine. Skin folds with MASD, fungal powder being used with good results. Legs +LE hemosiderosis with chronic dark discolored legs and lymphedema. Legs with less edema compared to
last seen just very dry legs and feet, no open wounds. Has compression stockings and lymphedema pumps at home that family has to help her to use. Blanchable red heels. FLACA Torres assisted with turning/repositioning and skin care, patient tries to
help but very weak.
Appetite: good.
Pressure redistribution devices in place: Advanta bed, called [employer] for air mattress. Called [employer] for bariatric Air chair cushion, patient can take home. Nurse Maura made aware of bed switch and offloading cushion.
Plan: Silicone foams applied to L buttock and posterior thigh, remainder of skin can use barrier cream. Skin folds with fungal powder. Ordered mineral oil for dry skin on legs. Will confirm orders with hospitalist and updated nurse.
Care plan to be updated and will follow as needed.
--- NOTE | 2023-07-28 11:52 | CM ---
Reviewed chart, placed a call to patient to obtain information for assessment. Patient stated that she lives her daughter and son in a two story single home with one step to enter. She uses a walker to assist with her ambulation for short distances
and a w/c for longer distances out in the community.
Patient relayed that she has a first floor set up with her bedroom, kitchen and powder room all on the first floor. She described herself as independent with her ADLs, personal care, dressing, bathing and toileting. Her son and daughter assist with
winding inspector, cooking, cleaning and laundry.
Patient has o2 at home she gets through [facility]. She has a nebulizer, inhalers, and toilet rails in addition to the walker and w/c. She relayed that she has not used the nebulizer for a very long time.
Patient has had VN services in the past through . She has never been to a SNF before.
She stated that between her daughter and son someone is usually home with her so she is not left unattended for long periods of time, although she confirmed that she is pretty independent and does still drive as long as someone comes with her so she
can get to her appointments and do her shopping.
Patient has a prescription plan and uses [facility] in [place] for all her medications (short term).
Patient stated that she feels she would like to return home and is agreeable to VN if indicated. She has not yet participated in PT as she stated that she didn't feel well enough to participate but confirmed she is starting to feel a little better
and will work with them so that she her current level of functioning can be determined.
Plan: Case management will continue to follow and assist with discharge planning. Patient would like to return home when stable with her family and possibility of VN if indicated. If SNF is indicated will speak to her about choices.
[2023-07-28 12:10] LABS: Glucose - Point of Care 175 mg/dl (70-99)
[2023-07-28] MEDS: NOVOLOG FLEXPEN-MODERATE RESISTANCE 1 UNITS SC ×2 (12:49→17:26)
[2023-07-28] MEDS: HYDROPHOR 1 APPLIC TOPICAL (12:50)
[2023-07-28] MEDS: THERAGRAN 1 TABLET PO (12:50)
[2023-07-28] MEDS: ASPIR LOW (ENTERIC COATED) 81 MG PO (12:50)
--- NOTE | 2023-07-28 13:45 | W.PN.ID1 ---
Date of Service
Date of Service: July 28, 2023
Today's Communication
Continue Paxlovid.
Can substitute home Advair with Symbocort.
Assessment / Plan
# Moderate COVID infection. (exposed from daughter)
-Unvaccinated
-Symptom onset 07/26/23
-COVID + 07/27/23.
-Acute on chronic hypoxemic respiratory failure, improving now on 4L O2.
- CXR suggestive of congestive heart failure.
- Start Paxlovid bid x 5d
-Hold atorvastatin while on Paxlovid
-Continue dexamethasone.
- Wean oxygen as tolerated.
-COVID isolation x 10 days.
# Asthma
# Drug reaction
- On home Advair bid and Xopenex prn
-Advair substituted levalbuterol and fluticasone, as per pharmacist recommendation due to interaction with Paxlovid.
- pt had difficulty breathing with levalbuterol -> dc'd
- can use fluticasone and formoterol, but formoterol not in formulary.
Use Symbicort (budesonide/formoterol).
#Additional Past Medical History:
Hypertension
Diabetes mellitus, type II
Asthma
Heart failure, EF 45-50%
NSTEMI
Aortic stenosis
Right lower extremity DVT
Lymphedema
Venous insufficiency
Sleep apnea on nocturnal oxygen
Benign breast mass resection
Chief Complaint
-: Other (COVID)
Subjective / Review of Systems
c/o of difficulty breathing/swallowing with one of the inhalers Advair replaced with levalbuterol and fluticasone due to interaction with Paxlovid. Symptoms better now.
Vital Signs / Physical Exam
Vital Signs
Vital Signs
Temp Pulse Resp BP Pulse Ox
98.9 F 59 22 127/70 96
07/28/23 07:15 07/28/23 08:42 07/28/23 07:15 07/28/23 08:42 07/28/23 08:45
Physical Exam
Constitutional: No Acute Distress and Comfortable
Pulmonary: Rales (bases)
Gastrointestinal: Soft, Non Distended and Normal Bowel Sounds
Genito-Urinary: Negative CVA Tenderness
Neurological: AO x 3
Objective Data
Lab Data
Lab Results
07/28/23 05:56
07/28/23 05:56
Estimated Creat Clear 41 ml/min 07/28/23 05:56
Total Bilirubin 0.9 mg/dl (0.2-1.3) 07/28/23 05:56
AST 26 U/L (14-36) 07/28/23 05:56
ALT 24 U/L (0-35) 07/28/23 05:56
Alkaline Phosphatase 101 U/L (38-126) 07/28/23 05:56
Most recent labs reviewed.
Micro Results:
07/27/23 08:01 Influenza Types A & B (ROBER) - Final
Nasal Swab Negative for Influenza A & B, NAAT
Negative results must be combined with clinical observations
and patient history.
Nucleic Acid Amplification test (NAAT)performed on the
[employer] platform.
07/27/23 CXR: Findings suspicious for mild congestive heart failure. Mild asymmetric pulmonary edema versus mild/early pneumonia in the right lower lobe.
Care Review
Plan reviewed with: Other (Pharmacist Phoebe)
[2023-07-28 14:20] VITALS: BP 138/77; PULSE 52; O2SAT 97
[2023-07-28 14:28] VITALS: BP 138/77; PULSE 52; O2SAT 97
[2023-07-28 15:00] VITALS: BP 129/77
[2023-07-28] MEDS: XOPENEX HFA 45 MCG INHALER 2 PUFF INH ×2 (15:32→20:38)
[2023-07-28 17:19] LABS: Glucose - Point of Care 169 mg/dl (70-99)
[2023-07-28] MEDS: LOVENOX 40 MG SC (17:25)
[2023-07-28] MEDS: PHENERGAN WITH CODEINE SYRUP 5 ML PO (17:26)
[2023-07-28] MEDS: CARDIZEM CD 120 MG PO (17:27)
[2023-07-28] MEDS: SYMBICORT 160/4.5 MCG INHALER 2 PUFF INH (20:37)
[2023-07-28 21:32] LABS: Glucose - Point of Care 246 mg/dl (70-99)
[2023-07-28 23:26] VITALS: BP 132/78
[2023-07-29 05:21] LABS: Hematocrit 36.1 % (37.0-47.0); Hemoglobin 11.7 g/dL (12.0-16.0); Mean Corp Hgb Conc. 32.4 g/dL (33.0-37.0); Mean Corpuscular Hgb 28.4 pg (27.0-31.0); Mean Corpuscular Volume 87.6 fL (81.0-99.0); Platelet Count 207 10^3/uL (130-400); Red Blood Cell Count 4.12 10^6/uL (4.20-5.40); Red Cell Dist. Width 14.9 % (11.5-14.5); White Blood Cell Count 4.6 10^3/uL (4.8-10.8)
[2023-07-29 05:27] VITALS: BMI 45.4
[2023-07-29 06:02] LABS: ALT (SGPT) 22 U/L (0-35); AST (SGOT) 20 U/L (14-36); Albumin 3.3 g/dl (3.5-5.0); Alkaline Phosphatase 94 U/L (38-126); Blood Urea Nitrogen 57 mg/dl (7-17); Calcium 8.5 mg/dl (8.4-10.2); Carbon Dioxide 31 mmol/L (22-30); Chloride 98 mmol/L (98-107); Estimated Creatinine Clearance 40 ml/min; Glucose 154 mg/dl (70-99); Potassium 4.7 mmol/L (3.5-5.1); Sodium 138 mmol/L (135-145); Total Bilirubin 0.6 mg/dl (0.2-1.3); Total Protein 6.8 g/dl (6.3-8.2); eGFR 38.27
[2023-07-29 07:10] VITALS: BP 138/83
[2023-07-29 07:34] LABS: Glucose - Point of Care 142 mg/dl (70-99)
[2023-07-29] MEDS: NOVOLOG FLEXPEN-MODERATE RESISTANCE SC (07:43)
--- NOTE | 2023-07-29 07:48 | W.PN.HOSP.TC ---
Addendum entered and electronically signed by Siva Kan MD 07/29/23 11:10:
Patient also has:
Acute on chronic heart failure with reduced ejection fraction
Bilateral Buttock healing Stage 2 pressure injury, POA� � � � � � � � � � � � � � � � � � � � � � � � � � � � �
Bilateral Posterior Thighs healing Stage 2 vs MASD, POA
-Continue wound care, offloading
Original Note:
Today's Communication/Plan
-
See bold
Assessment / Plan
Assessment / Plan
HPI: 77-year-old female with a past medical history of sleep apnea, stopped using CPAP few years ago, asthma, history of DVT, heart failure, chronic hypoxic respiratory failure on 1-2 L, chronic lymphedema, hypertension, hyperlipidemia, type 2
diabetes, and morbid obesity who presents with shortness of breath and coughing since last night.� Patient is usually on 2 L of oxygen, she is currently requiring 5.� She denies fever, denies chills.� No nausea, no vomiting.� No abdominal pain, no
diarrhea, no dysuria.� Patient states that her daughter is also sick, she works at [employer].
#Acute on chronic hypoxic respiratory failure
#Acute coronavirus infection
#History of asthma
Unvaccinated. Symptoms began 07/26, needs isolation for 10 days
CXR shows 'Findings suspicious for mild congestive heart failure. Mild asymmetric pulmonary edema versus mild/early pneumonia in the RLL'
Patient is currently requiring 2 L of oxygen, down from 5 L. She usually requires 2 L at home
Procalcitonin negative, continue dexamethasone day 3, bronchodilators
Paxlovid as per ID
PT rec HH
#Chronic HFrEF (40-45%)
#Chronic lymphedema and chronic venous stasis changes
Status post Lasix 40 mg IV in the ER
She is on Lasix 80 mg p.o. daily, and metolazone on Sundays
S/p Lasix 80 mg IV x 1 on 07/27
Creatinine bumped at 1.4, was 1.2.
Monitor creatinine, likely can resume home Lasix tomorrow
Weights are not accurate
#Type 2 diabetes
Hemoglobin A1c 6.1
Diabetic diet, sliding scale insulin
#Stage IIIb chronic kidney disease
Creatinine at baseline, continue to monitor
#Benign essential hypertension
Continue home diltiazem
#Hyperlipidemia
Continue statin
#Chronic venous stasis dermatitis
#Chronic lymphedema
#Morbid obesity with a BMI of 47.7
Affects all aspects of care
DVT prophylaxis�subcu Lovenox
Full code
Total time spent to see the patient on the floor, examine the patient, review data and lab results, discuss treatment plan with patient, nursing staff around 51 minutes.
Physical Exam
General: Morbidly obese, appears to not feel well, no acute distress
HEENT: Normocephalic, Atraumatic, EOMI, MMM
Respiratory: Coarse breath sounds with scattered minimal wheezing
Cardiac: Normal S1/S2, Regular Rate and Rhythm
GI: Soft, Nontender, Nondistended, Normal Bowel Sounds
Extremities: No Clubbing, Cyanosis
Chronic bilateral lymphedema noted
Neuro: Nonfocal/Grossly Intact
Psych: Calm, Cooperative
Derm: Hyperpigmentation of the shins reflective of chronic venous stasis dermatitis
Anticipated Discharge: 24 - 48 hours
Subjective/Interval History
-
Date of Service: July 29, 2023
Overall mildly improved. Continues to cough.
Objective Data
-
Labs:
Laboratory Results
07/29/23
05:06
WBC 4.6 L
Hgb 11.7 L
Hct 36.1 L
Plt Count 207
Sodium 138
Potassium 4.7
Chloride 98
Carbon Dioxide 31 H
BUN 57 H
Creatinine 1.4 H
Glucose 154 H
Calcium 8.5
Total Bilirubin 0.6
AST 20
ALT 22
Alkaline Phosphatase 94
Vital Signs:
Vital Signs
Temp Pulse Resp BP Pulse Ox
97.4 F 56 20 132/78 99
07/28/23 23:26 07/28/23 23:26 07/28/23 23:26 07/28/23 23:26 07/28/23 23:49
I&O
07/28/23 07/29/23 07/30/23
06:59 06:59 06:59
Intake Total 460 / 460 1800 / 1800
Output Total 600 / 600 1300 / 1300
Balance -140 / -140 500 / 500
[2023-07-29] MEDS: XOPENEX HFA 45 MCG INHALER 2 PUFF INH ×2 (08:00→13:54)
[2023-07-29] MEDS: SYMBICORT 160/4.5 MCG INHALER 2 PUFF INH ×2 (08:00→20:23)
--- NOTE | 2023-07-29 08:55 | PN.CDI ---
CDI
- -
CDI:
Physician Documentation Request
Admit Date: 07/27/23 12:44
Dear Doctor Do,
Clinical Indicators:
Patient admitted with COVID 19 with acute on chronic respiratory failure.
07/27 H & P, 'Chronic HFrEF (40-45%)'
07/27 CXR report, 'Findings suspicious for mild congestive heart failure. Mild asymmetric pulmonary edema versus mild/early pneumonia in the right lower lobe.'
Lasix IV x 2 doses given.
BNP on admission:
07/27/23
08:01
[id number] Pept 7630
Please clarify the most likely acuity of CHF you are evaluating, treating or monitoring.
Acute on chronic HFrEF
Chronic HFrEF
Other, please specify
Use of terms such as suspected, likely, concern for, or probable (associated with a specific diagnosis that is being evaluated, monitored, or treated as if it exists) are acceptable and can be coded in the inpatient setting, when documented at the
time of discharge.
Thank you,
RAHUL Salmon RN
CDI Specialist
available via tiger text
Please use your independent medical judgment in providing your response.
--- NOTE | 2023-07-29 09:04 | PN.CDI ---
CDI
- -
CDI:
Physician Documentation Request
Admit Date: 07/27/23 12:44
Dear Doctor Do,
Clinical Indicators:
Patient admitted COVID 19.
07/28 WO RN note/assessment: -Bilateral Buttock healing Stage 2 pressure injury, POA
-Bilateral Posterior Thighs healing Stage 2 vs MASD, POA
Physician documentation of the type and location of wounds is required for compliant documentation. Based on the above clinical findings and your assessment, please provide the following in your progress note:
1. Location of the ulcer/wound, including laterality.
2. Type (etiology) of ulcer/wound:
- Pressure (decubitus) ulcer
- MASD only
- Other
3. If a pressure ulcer, please also include the stage* of the ulcer:
- Stage 1 - Skin intact, non-blanchable redness
- Stage 2 - Partial thickness loss of dermis, includes intact or open blister
- Stage 3 - Full thickness tissue not including bone, tendon or muscle
- Stage 4 - Full thickness tissue loss, including exposed bone, tendon or muscle
- Unstageable - Full thickness loss in which the base of the ulcer is covered by slough (yellow, stokes, de la rosa, green or brown) and/or eschar (stokes, brown or black) in the wound bed.
- Unable to determine
Use of terms such as suspected, likely, concern for, or probable (associated with a specific diagnosis that is being evaluated, monitored, or treated as if it exists) are acceptable and can be coded in the inpatient setting, when documented at the
time of discharge.
Thank you,
RAHUL Salmon RN
CDI Specialist
available via tiger text
Please use your independent medical judgment in providing your response.
*Source: National Pressure Ulcer Advisory Panel (NPUAP)
[2023-07-29] MEDS: KCL 20 MEQ PO (09:28)
[2023-07-29] MEDS: DECADRON 6 MG IV (09:28)
[2023-07-29] MEDS: PAXLOVID 150-100 MG DOSE PACK 1 DOSE PO ×2 (09:28→20:15)
[2023-07-29] MEDS: PHENERGAN WITH CODEINE SYRUP 5 ML PO ×2 (09:29→17:11)
[2023-07-29] MEDS: HYDROPHOR 1 APPLIC TOPICAL (09:29)
--- NOTE | 2023-07-29 10:19 | W.PN.ID1 ---
Date of Service
Date of Service: July 29, 2023
Today's Communication
Continue Paxlovid 150/100 bid (d3) through 07/31/23.
Assessment / Plan
# Moderate COVID infection. (exposed from daughter)
-Unvaccinated
-Symptom onset 07/26/23
-COVID + 07/27/23.
-Acute on chronic hypoxemic respiratory failure, improving now on 3L O2.
- CXR suggestive of congestive heart failure.
- Continue Paxlovid 150/100 bid (d3) through 07/31/23.
-Hold Advair and atorvastatin while on Paxlovid
-Continue dexamethasone.
- Wean oxygen as tolerated.
-COVID isolation x 10 days.
# Asthma
# Drug reaction
- Replaced Advair with Symbicort (budesonide/formoterol) while on Paxlovid.
#Additional Past Medical History:
Hypertension
Diabetes mellitus, type II
Asthma
Heart failure, EF 45-50%
NSTEMI
Aortic stenosis
Right lower extremity DVT
Lymphedema
Venous insufficiency
Sleep apnea on nocturnal oxygen
Benign breast mass resection
Chief Complaint
-: Other (COVID)
Subjective / Review of Systems
Feeling better. Chest congestion is looser.
Tolerating the Symbicort.
Vital Signs / Physical Exam
Vital Signs
Vital Signs
Temp Pulse Resp BP Pulse Ox
97.3 F 57 18 138/83 97
07/29/23 07:10 07/29/23 08:09 07/29/23 08:09 07/29/23 07:10 07/29/23 10:12
Physical Exam
Constitutional: No Acute Distress
Cardiovascular: Regular Rate and S1/S2
Pulmonary: Clear (anterior lungs)
Gastrointestinal: Soft, Non Tender and Non Distended
Neurological: AO x 3
Objective Data
Lab Data
Lab Results
07/29/23 05:06
07/29/23 05:06
Estimated Creat Clear 40 ml/min 07/29/23 05:06
Total Bilirubin 0.6 mg/dl (0.2-1.3) 07/29/23 05:06
AST 20 U/L (14-36) 07/29/23 05:06
ALT 22 U/L (0-35) 07/29/23 05:06
Alkaline Phosphatase 94 U/L (38-126) 07/29/23 05:06
Most recent labs reviewed.
Micro Results:
07/27/23 08:01 Influenza Types A & B (ROBER) - Final
Nasal Swab Negative for Influenza A & B, NAAT
Negative results must be combined with clinical observations
and patient history.
Nucleic Acid Amplification test (NAAT)performed on the
[employer] platform.
07/27/23 CXR: Findings suspicious for mild congestive heart failure. Mild asymmetric pulmonary edema versus mild/early pneumonia in the right lower lobe.
[2023-07-29 11:35] LABS: Glucose - Point of Care 236 mg/dl (70-99)
[2023-07-29] MEDS: THERAGRAN 1 TABLET PO (12:28)
[2023-07-29] MEDS: ASPIR LOW (ENTERIC COATED) 81 MG PO (12:29)
[2023-07-29] MEDS: NOVOLOG FLEXPEN-MODERATE RESISTANCE 3 UNITS SC ×2 (13:22→17:28)
[2023-07-29 14:40] VITALS: O2SAT 87; O2SAT 96
--- NOTE | 2023-07-29 14:43 | CM ---
Spoke with daughter via telecom and met with patient concerning discharge plan of care. They are declining PT recommendation for HH services. Daughter and son live with patient and will care for her. Daughter has been assisting patient with
transfers and ambulation [employer]. Reiterated plan to patient and she confirmed and was adamant about not having in home services.
[2023-07-29 14:58] VITALS: BP 148/61
[2023-07-29 16:35] LABS: Glucose - Point of Care 223 mg/dl (70-99)
[2023-07-29] MEDS: CARDIZEM CD 120 MG PO (17:10)
[2023-07-29] MEDS: LOVENOX 40 MG SC (17:10)
[2023-07-29] MEDS: DESENEX/MITRAZOL/ZEASORB 1 APPLIC TOPICAL (20:14)
[2023-07-29] MEDS: XOPENEX HFA 45 MCG INHALER INH (20:22)
[2023-07-29 22:05] LABS: Glucose - Point of Care 184 mg/dl (70-99)
[2023-07-29 23:40] VITALS: BP 175/85
[2023-07-30] MEDS: XOPENEX HFA 45 MCG INHALER 2 PUFF INH ×4 (00:31→19:37)
[2023-07-30 05:22] LABS: Hematocrit 37.3 % (37.0-47.0); Hemoglobin 12.2 g/dL (12.0-16.0); Mean Corp Hgb Conc. 32.7 g/dL (33.0-37.0); Mean Corpuscular Hgb 28.5 pg (27.0-31.0); Mean Corpuscular Volume 87.1 fL (81.0-99.0); Mean Platelet Volume 9.8 fL (7.4-10.4); Platelet Count 218 10^3/uL (130-400); Red Blood Cell Count 4.28 10^6/uL (4.20-5.40); Red Cell Dist. Width 14.7 % (11.5-14.5); White Blood Cell Count 5.7 10^3/uL (4.8-10.8)
[2023-07-30 05:37] VITALS: BMI 45.0
[2023-07-30 05:49] LABS: ALT (SGPT) 21 U/L (0-35); AST (SGOT) 20 U/L (14-36); Albumin 3.4 g/dl (3.5-5.0); Alkaline Phosphatase 103 U/L (38-126); Blood Urea Nitrogen 53 mg/dl (7-17); Calcium 8.3 mg/dl (8.4-10.2); Carbon Dioxide 32 mmol/L (22-30); Chloride 102 mmol/L (98-107); Estimated Creatinine Clearance 50 ml/min; Glucose 145 mg/dl (70-99); Potassium 5.1 mmol/L (3.5-5.1); Sodium 137 mmol/L (135-145); Total Bilirubin 0.6 mg/dl (0.2-1.3); Total Protein 6.9 g/dl (6.3-8.2); eGFR 51.11
--- NOTE | 2023-07-30 07:08 | W.PN.HOSP.TC ---
Today's Communication/Plan
-
see bold
Assessment / Plan
Assessment / Plan
HPI: 77-year-old female with a past medical history of sleep apnea, stopped using CPAP few years ago, asthma, history of DVT, heart failure, chronic hypoxic respiratory failure on 1-2 L, chronic lymphedema, hypertension, hyperlipidemia, type 2
diabetes, and morbid obesity who presents with shortness of breath and coughing since last night.� Patient is usually on 2 L of oxygen, she is currently requiring 5.� She denies fever, denies chills.� No nausea, no vomiting.� No abdominal pain, no
diarrhea, no dysuria.� Patient states that her daughter is also sick, she works at [employer].
#Acute on chronic hypoxic respiratory failure
#Acute coronavirus infection
#History of asthma
Unvaccinated. Symptoms began 07/26, needs isolation for 10 days
CXR shows 'Findings suspicious for mild congestive heart failure. Mild asymmetric pulmonary edema versus mild/early pneumonia in the RLL'
Patient is currently requiring 3 L of oxygen, down from 5 L. She usually requires 2 L at home
Procalcitonin negative, continue dexamethasone day 4, bronchodilators
Paxlovid as per ID
PT rec HH
#Acute on chronic HFrEF (40-45%)
#Chronic lymphedema and chronic venous stasis changes
Status post Lasix 40 mg IV in the ER
She is on Lasix 80 mg p.o. daily, and metolazone on Sundays
S/p Lasix 80 mg IV x 1 on 07/27
Creatinine back to normal at 1.1, was 1.4, was 1.2.
Resume home Lasix today
Weights are not accurate
#Type 2 diabetes
Hemoglobin A1c 6.1
Diabetic diet, sliding scale insulin
#Stage IIIb chronic kidney disease
Creatinine at baseline, continue to monitor
#Benign essential hypertension
Continue home diltiazem
#Hyperlipidemia
Continue statin
#Chronic venous stasis dermatitis
#Chronic lymphedema
#Morbid obesity with a BMI of 47.7
Affects all aspects of care
#Bilateral Buttock healing Stage 2 pressure injury, POA� � � � � � � � � � � � � � � � � � � � � � � � � � � � �
#Bilateral Posterior Thighs healing Stage 2 vs MASD, POA
Continue wound care, offloading
DVT prophylaxis�subcu Lovenox
Full code
Physical Exam
General: Morbidly obese, appears to not feel well, no acute distress
HEENT: Normocephalic, Atraumatic, EOMI, MMM
Respiratory: Coarse breath sounds with scattered minimal wheezing
Cardiac: Normal S1/S2, Regular Rate and Rhythm
GI: Soft, Nontender, Nondistended, Normal Bowel Sounds
Extremities: No Clubbing, Cyanosis
Chronic bilateral lymphedema noted
Neuro: Nonfocal/Grossly Intact
Psych: Calm, Cooperative
Derm: Hyperpigmentation of the shins reflective of chronic venous stasis dermatitis
Bilateral Buttock healing Stage 2 pressure injury, POA� � � � � � � � � � � � � � � � � � � � � � � � � � � � �
Bilateral Posterior Thighs healing Stage 2 vs MASD, POA
Anticipated Discharge: 24 - 48 hours
Subjective/Interval History
-
Date of Service: July 29, 2023
Patient's respiratory status waxes and wanes.
Objective Data
-
Labs:
Laboratory Results
07/29/23
05:06
WBC 4.6 L
Hgb 11.7 L
Hct 36.1 L
Plt Count 207
Sodium 138
Potassium 4.7
Chloride 98
Carbon Dioxide 31 H
BUN 57 H
Creatinine 1.4 H
Glucose 154 H
Calcium 8.5
Total Bilirubin 0.6
AST 20
ALT 22
Alkaline Phosphatase 94
Vital Signs:
Vital Signs
Temp Pulse Resp BP Pulse Ox
97.3 F 57 18 138/83 97
07/29/23 07:10 07/29/23 08:09 07/29/23 08:09 07/29/23 07:10 07/29/23 10:12
I&O
07/28/23 07/29/23 07/30/23
06:59 06:59 06:59
Intake Total 460 / 460 1800 / 1800
Output Total 600 / 600 1300 / 1300
Balance -140 / -140 500 / 500
[2023-07-30 07:35] VITALS: BP 122/74
[2023-07-30] MEDS: SYMBICORT 160/4.5 MCG INHALER 2 PUFF INH ×2 (07:44→19:37)
[2023-07-30 08:08] LABS: Glucose - Point of Care 133 mg/dl (70-99)
[2023-07-30] MEDS: NOVOLOG FLEXPEN-MODERATE RESISTANCE SC (08:09)
[2023-07-30] MEDS: HYDROPHOR 1 APPLIC TOPICAL (08:12)
[2023-07-30] MEDS: DECADRON 6 MG IV (08:12)
[2023-07-30] MEDS: PAXLOVID 150-100 MG DOSE PACK 1 DOSE PO ×2 (08:12→20:29)
[2023-07-30] MEDS: DESENEX/MITRAZOL/ZEASORB 1 APPLIC TOPICAL ×2 (08:13→20:29)
--- NOTE | 2023-07-30 10:46 | W.PN.ID1 ---
Date of Service
Date of Service: July 30, 2023
Today's Communication
Tomorrow last day of Paxlovid.
Assessment / Plan
# Moderate COVID infection. (exposed from daughter)
-Unvaccinated
-Symptom onset 07/26/23
-COVID + 07/27/23.
-Acute on chronic hypoxemic respiratory failure, improving now on 3L O2.
- CXR suggestive of congestive heart failure.
- Continue Paxlovid 150/100 bid (d3) through 07/31/23.
-Hold Advair and atorvastatin while on Paxlovid
-On steroid
- Wean oxygen as tolerated.
-COVID isolation x 10 days.
# Asthma
# Drug reaction
- Replaced Advair with Symbicort (budesonide/formoterol) while on Paxlovid.
#Additional Past Medical History:
Hypertension
Diabetes mellitus, type II
Asthma
Heart failure, EF 45-50%
Chronic hypoxemic respiratory failure on 2L 02
NSTEMI
Aortic stenosis
Right lower extremity DVT
Lymphedema
Venous insufficiency
Sleep apnea
Benign breast mass resection
Chief Complaint
-: Other (COVID)
Subjective / Review of Systems
Still with nonproductive cough.
Vital Signs / Physical Exam
Vital Signs
Vital Signs
Temp Pulse Resp BP Pulse Ox
97.4 F 76 18 122/74 94
07/30/23 07:35 07/30/23 08:05 07/30/23 08:05 07/30/23 07:35 07/30/23 09:23
Physical Exam
Constitutional: Comfortable
Gastrointestinal: Soft and Non Tender
Extremities: Edema (BLE lymphedema)
Neurological: AO x 3
Objective Data
Lab Data
Lab Results
07/30/23 05:01
07/30/23 05:01
Estimated Creat Clear 50 ml/min 07/30/23 05:01
Total Bilirubin 0.6 mg/dl (0.2-1.3) 07/30/23 05:01
AST 20 U/L (14-36) 07/30/23 05:01
ALT 21 U/L (0-35) 07/30/23 05:01
Alkaline Phosphatase 103 U/L (38-126) 07/30/23 05:01
Most recent labs reviewed.
Micro Results:
07/27/23 08:01 Influenza Types A & B ([facility]) - Final
Nasal Swab Negative for Influenza A & B, NAAT
Negative results must be combined with clinical observations
and patient history.
Nucleic Acid Amplification test (NAAT)performed on the
The [employer] platform.
07/27/23 CXR: Findings suspicious for mild congestive heart failure. Mild asymmetric pulmonary edema versus mild/early pneumonia in the right lower lobe.
[2023-07-30 11:46] LABS: Glucose - Point of Care 287 mg/dl (70-99)
[2023-07-30] MEDS: LASIX 80 MG PO (13:05)
[2023-07-30] MEDS: NOVOLOG FLEXPEN-MODERATE RESISTANCE 5 UNITS SC ×2 (13:05→17:18)
[2023-07-30] MEDS: ASPIR LOW (ENTERIC COATED) 81 MG PO (13:05)
[2023-07-30] MEDS: THERAGRAN 1 TABLET PO (13:05)
[2023-07-30 13:10] VITALS: PULSE 57; O2SAT 97
--- NOTE | 2023-07-30 16:18 | CM ---
Discharge plan of care: Home with no services. Patient and family are declining home health recommendation. Daughter and son will care for patient.
[2023-07-30 16:31] LABS: Glucose - Point of Care 259 mg/dl (70-99)
[2023-07-30] MEDS: PHENERGAN WITH CODEINE SYRUP 5 ML PO (17:19)
[2023-07-30] MEDS: LOVENOX 40 MG SC (17:19)
[2023-07-30] MEDS: CARDIZEM CD 120 MG PO (17:19)
[2023-07-30 21:37] LABS: Glucose - Point of Care 178 mg/dl (70-99)
[2023-07-30 23:32] VITALS: BP 176/86
[2023-07-30 23:48] VITALS: BP 120/61
[2023-07-31 05:40] VITALS: BMI 44.9
[2023-07-31 06:14] LABS: ALT (SGPT) 20 U/L (0-35); AST (SGOT) 18 U/L (14-36); Albumin 3.2 g/dl (3.5-5.0); Alkaline Phosphatase 84 U/L (38-126); Blood Urea Nitrogen 55 mg/dl (7-17); Calcium 8.5 mg/dl (8.4-10.2); Carbon Dioxide 34 mmol/L (22-30); Chloride 96 mmol/L (98-107); Estimated Creatinine Clearance 46 ml/min; Glucose 150 mg/dl (70-99); Potassium 4.9 mmol/L (3.5-5.1); Sodium 139 mmol/L (135-145); Total Bilirubin 0.6 mg/dl (0.2-1.3); Total Protein 6.6 g/dl (6.3-8.2); eGFR 46.05
[2023-07-31 06:31] LABS: Hematocrit 39.3 % (37.0-47.0); Hemoglobin 12.3 g/dL (12.0-16.0); Mean Corp Hgb Conc. 31.3 g/dL (33.0-37.0); Mean Corpuscular Hgb 27.9 pg (27.0-31.0); Mean Corpuscular Volume 89.1 fL (81.0-99.0); Mean Platelet Volume 9.9 fL (7.4-10.4); Platelet Count 232 10^3/uL (130-400); Red Blood Cell Count 4.41 10^6/uL (4.20-5.40); Red Cell Dist. Width 14.6 % (11.5-14.5); White Blood Cell Count 5.3 10^3/uL (4.8-10.8)
[2023-07-31] MEDS: SYMBICORT 160/4.5 MCG INHALER 2 PUFF INH (08:05)
--- NOTE | 2023-07-31 08:06 | W.PN.HOSP.TC ---
Addendum entered and electronically signed by Siva Kan MD 07/31/23 12:33:
Patient's heart rate is 49 today. Will permanently discontinue diltiazem.
Will discharge the patient on hydralazine 50 mg twice a day for her hypertension.
She is allergic to lisinopril.
Original Note:
Today's Communication/Plan
-
Cleared by ID for discharge today
Assessment / Plan
Assessment / Plan
HPI: 77-year-old female with a past medical history of sleep apnea, stopped using CPAP few years ago, asthma, history of DVT, heart failure, chronic hypoxic respiratory failure on 1-2 L, chronic lymphedema, hypertension, hyperlipidemia, type 2
diabetes, and morbid obesity who presents with shortness of breath and coughing since last night.� Patient is usually on 2 L of oxygen, she is currently requiring 5.� She denies fever, denies chills.� No nausea, no vomiting.� No abdominal pain, no
diarrhea, no dysuria.� Patient states that her daughter is also sick, she works at [employer].
#Acute on chronic hypoxic respiratory failure
#Acute coronavirus infection
#History of asthma
Unvaccinated. Symptoms began 07/26, needs isolation for 10 days
CXR shows 'Findings suspicious for mild congestive heart failure. Mild asymmetric pulmonary edema versus mild/early pneumonia in the RLL'
Patient is currently requiring 3 L of oxygen, down from 5 L. She usually requires 2 L at home
Procalcitonin negative, continue dexamethasone day 5, Paxlovid day 5, bronchodilators
PT rec HH. Medically stable for discharge on dexamethasone to complete a 10-day course
#Acute on chronic HFrEF (40-45%)
#Chronic lymphedema and chronic venous stasis changes
Status post Lasix 40 mg IV in the ER
She is on Lasix 80 mg p.o. daily, and metolazone on Sundays
S/p Lasix 80 mg IV x 1 on 07/27
Creatinine back to baseline at 1.2, was 1.1, was 1.4, was 1.2.
Resumed home Lasix 07/30
Weights are not accurate
#Type 2 diabetes
Hemoglobin A1c 6.1
Diabetic diet, sliding scale insulin
#Stage IIIb chronic kidney disease
Creatinine at baseline, continue to monitor
#Benign essential hypertension
She is bradycardic, will decrease diltiazem dose
#Hyperlipidemia
Continue statin
#Chronic venous stasis dermatitis
#Chronic lymphedema
#Morbid obesity with a BMI of 47.7
Affects all aspects of care
#Bilateral Buttock healing Stage 2 pressure injury, POA� � � � � � � � � � � � � � � � � � � � � � � � � � � � �
#Bilateral Posterior Thighs healing Stage 2 vs MASD, POA
Continue wound care, offloading
DVT prophylaxis�subcu Lovenox
Full code
Physical Exam
General: Morbidly obese, appears to not feel well, no acute distress
HEENT: Normocephalic, Atraumatic, EOMI, MMM
Respiratory: Coarse breath sounds with scattered minimal wheezing
Cardiac: Normal S1/S2, Regular Rate and Rhythm
GI: Soft, Nontender, Nondistended, Normal Bowel Sounds
Extremities: No Clubbing, Cyanosis
Chronic bilateral lymphedema noted
Neuro: Nonfocal/Grossly Intact
Psych: Calm, Cooperative
Derm: Hyperpigmentation of the shins reflective of chronic venous stasis dermatitis
Bilateral Buttock healing Stage 2 pressure injury, POA� � � � � � � � � � � � � � � � � � � � � � � � � � � � �
Bilateral Posterior Thighs healing Stage 2 vs MASD, POA
Anticipated Discharge: Today
Subjective/Interval History
-
Date of Service: July 31, 2023
Patient reports feeling much better. Cough and shortness of breath improved.
Objective Data
-
Labs:
Laboratory Results
07/31/23
04:59
WBC 5.3
Hgb 12.3
Hct 39.3
Plt Count 232
Sodium 139
Potassium 4.9
Chloride 96 L
Carbon Dioxide 34 H
BUN 55 H
Creatinine 1.2 H
Glucose 150 H
Calcium 8.5
Total Bilirubin 0.6
AST 18
ALT 20
Alkaline Phosphatase 84
Vital Signs:
Vital Signs
Temp Pulse Resp BP Pulse Ox
97.8 F 59 22 120/61 94
07/30/23 23:32 07/30/23 23:32 07/30/23 23:32 07/30/23 23:48 07/30/23 23:32
I&O
07/30/23 07/31/23 08/01/23
06:59 06:59 06:59
Intake Total 1440 / 1440 1740 / 1740
Output Total 910 / 910 1750 / 1750
Balance 530 / 530 -10 / -10
[2023-07-31 08:19] LABS: Glucose - Point of Care 151 mg/dl (70-99)
[2023-07-31 08:22] VITALS: BP 124/59
[2023-07-31] MEDS: NOVOLOG FLEXPEN-MODERATE RESISTANCE 1 UNITS SC (09:17)
[2023-07-31] MEDS: DECADRON 6 MG IV (09:18)
[2023-07-31] MEDS: PAXLOVID 150-100 MG DOSE PACK 1 DOSE PO ×2 (09:18→13:33)
[2023-07-31] MEDS: LASIX 80 MG PO (09:19)
[2023-07-31] MEDS: DESENEX/MITRAZOL/ZEASORB 1 APPLIC TOPICAL (09:24)
[2023-07-31] MEDS: HYDROPHOR 1 APPLIC TOPICAL (09:24)
[2023-07-31 10:56] LABS: Glucose - Point of Care 237 mg/dl (70-99)
[2023-07-31] MEDS: NOVOLOG FLEXPEN-MODERATE RESISTANCE 3 UNITS SC (12:16)
[2023-07-31] MEDS: THERAGRAN 1 TABLET PO (12:16)
[2023-07-31] MEDS: ASPIR LOW (ENTERIC COATED) 81 MG PO (12:16)
--- NOTE | 2023-07-31 12:19 | W.DCSUMMARY ---
Discharge Summary
Discharge Data
Date of Admission: 07/27/23
Date of Discharge: 07/31/23
-
Pending Results: No
Hospital Course
Discharge diagnosis:
Acute on chronic hypoxic respiratory failure
Acute coronavirus infection
History of asthma
Acute on chronic heart failure with reduced ejection fraction
Chronic lymphedema and chronic venous stasis dermatitis
Benign essential hypertension with bradycardia
Type 2 diabetes
Bilateral buttock stage II pressure injury, present upon admission
Bilateral posterior thigh stage II pressure injury, present upon admission
Obstructive sleep apnea
Morbid obesity with a body mass index of 45
Consults: ID
Chest x-ray:
Findings suspicious for mild congestive heart failure. Mild asymmetric pulmonary edema versus mild/early pneumonia in the right lower lobe.
Hospital course:
77-year-old female with a past medical history of chronic hypoxic respiratory failure requiring 2 L, asthma, CHF, lymphedema, hypertension, type 2 diabetes, and morbid obesity presents with shortness of breath and coughing since 07/26/2023. She was
found to be COVID-positive. She is not vaccinated. Chest x-ray shows possible CHF.
Patient was seen in conjunction with ID. She was treated with IV dexamethasone and Paxlovid. She received bronchodilators, supportive care.
Patient also received Lasix 80 mg IV for acute heart failure with reduced ejection fraction. She was then resumed on her oral Lasix 80 mg p.o. daily.
After 4-5 days, her breathing improved. Her oxygenation improved. She was weaned from 5 L of oxygen down to 3 L of oxygen. She usually requires 2 L of oxygen.
Patient has essential hypertension, and is on diltiazem. She became bradycardic, with heart rate of 49. Her diltiazem was discontinued upon discharge. She is prescribed hydralazine 50 mg twice a day instead for her hypertension. She is allergic
to lisinopril.
Patient has limited mobility. She has bilateral buttock pressure injuries, as well as bilateral posterior thigh pressure injuries, present upon admission. She received wound care. She has been referred to the wound care clinic as needed
outpatient.
Patient's multiple recommendations have been optimized. She is medically stable for discharge. She will be discharged on dexamethasone 6 mg p.o. daily to complete a 10-day course. She has completed 5 days of Paxlovid. She needs to continue
isolation through 08/04/2023. She has been instructed to follow-up with her primary care doctor in 1 week.
Disposition: Home self care (patient declined VN)
Discharge planning: Required 40 minutes
Discharge Plan
-
Patient Disposition: Home (Routine Discharge)
Discharge Diagnosis/Procedures: Acute hypoxic respiratory failure, acute coronavirus infection, bradycardia, uncontrolled type 2 diabetes
Condition: Good
Diet: Diabetic, Carb Controlled
Activity: As tolerated
Driving Restrictions: As prior to admission
Activity Restrictions/Additional Instructions:
Continue isolation through 08/04/2023.
Take dexamethasone 6 mg daily for 5 more days.
Your heart rate was low at 49 in the hospital, we recommend you stopping diltiazem.
We have prescribed hydralazine 50 mg twice a day instead for your blood pressure.
Follow-up with your primary care doctor in 1 week.
Wound Care Instructions
R BUTTOCK AND THIGH: CLEAN WITH SOAP AND WATER, SKIN PREP AND SILICONE FOAM OR BARRIER CREAM IF FOAM DOES NOT HOLD. CHANGE Q 2-3 DAYS AND PRN SOILAGE.
BARRIER CREAM REMAINDER OF BUTTOCKS DAILY AND PRN SOILAGE
MINERAL OIL TO LEGS DAILY
Take bariatric air chair cushion home upon discharge.
Lymphedema pumps and compression as previously ordered.
Follow up at wound care center IF NEEDED, call for an appointment.
Referrals:
Miguel Bella, [Family Provider] - in one week
Prescriptions:
New
miconazole nitrate [Miconazorb AF] 2 % Powder
1 applic topical BID Qty: 100 0RF
promethazine-codeine 6.25-10 mg/5 mL Syrup
5 ml PO Q4HPRN PRN (Reason: cough) Qty: 200 0RF
dexamethasone 2 mg tablet
6 mg PO DAILY 5 Days Qty: 15 0RF
hydralazine 50 mg tablet
50 mg PO BID Qty: 60 0RF
budesonide-formoterol [Symbicort] 160-4.5 mcg/actuation Hfa Aerosol Inhaler
2 puff inhalation R BID Qty: 10.2 2RF
Continued
multivitamin with folic acid [Tab-A-Toy] 1 TABLET tablet
1 tab PO NOON
repaglinide 0.5 mg Tablet
0.5 mg PO BIDPRN PRN (Reason: BLOOD SUGAR >150 )
aspirin 81 MG tablet,delayed release (DR/EC)
81 mg PO NOON
Patient Comments:
07/27/2023, pt. unsure if they took this med. yesterday.
metolazone 2.5 mg tablet
2.5 mg PO RYAN
furosemide 80 mg tablet
80 mg PO DAILY
Patient Comments:
07/27/2023, pt. states that sometimes she will take 40 mg BID but she is unsure when she did this last. Prescription written for 80 mg daily.
acetaminophen [Tylenol] 325 mg Tablet
650 mg PO Q6H PRN (Reason: mild pain)
levalbuterol tartrate [Xopenex HFA] 45 mcg/actuation Hfa Aerosol Inhaler
2 inh INHALATION R DAILYPRN PRN (Reason: sob)
potassium chloride [Klor-Con M20] 20 mEq tablet,ER particles/crystals
20 meq PO RYAN
Patient Comments:
07/27/2023, pt. states that she takes this med. on Sundays when she takes her Metolazone.
Held
atorvastatin 20 MG tablet
20 mg PO HS
Hold Instructions: Resume on 08/04/23.
Discontinued
fluticasone propion-salmeterol [Advair HFA] 115-21 mcg/actuation Hfa Aerosol Inhaler
2 puff INHALATION R BID
diltiazem HCl 120 mg capsule,extended release 24hr
120 mg PO QPM
Discharge Orders:
Discharge Patient (As Directed); Ordered 07/31/23
Ordered By: Siva Kan
--- NOTE | 2023-07-31 14:38 | CM ---
Patient has been medically cleared for discharge to home. She has declined any additional services. Spoke with daughter and she reiterated that patient will not have anyone come into the home. Daughter will transport home.
== END 2023-07-31 14:52 | disposition home or self-care (01) | DRG 177 ==
LOC: 2 NORTH 12:44
PROVIDERS: Nurse Practitioner; ADMITTING PHYSICIAN Family Medicine; CONSULT PHYSICIAN Internal Medicine Infectious Disease; EMERGENCY PHYSICIAN Student in an Organized Health Care Education/Training Program; FAMILY PHYSICIAN Family Medicine
DX: U07.1 COVID-19 (principal); I50.23 Acute on chronic systolic (congestive) heart failure; J96.21 Acute and chronic respiratory failure with hypoxia; I13.0 Hypertensive heart and chronic kidney disease with heart failure and stage 1 through stage 4 chronic kidney disease, or unspecified chronic kidney disease; Z68.42 Body mass index [BMI] 45.0-49.9, adult; J44.9 Chronic obstructive pulmonary disease, unspecified; I89.0 Lymphedema, not elsewhere classified; E78.00 Pure hypercholesterolemia, unspecified; N18.32 Chronic kidney disease, stage 3b; E11.65 Type 2 diabetes mellitus with hyperglycemia; E66.01 Morbid (severe) obesity due to excess calories; I49.3 Ventricular premature depolarization; R00.8 Other abnormalities of heart beat; E11.22 Type 2 diabetes mellitus with diabetic chronic kidney disease; I87.8 Other specified disorders of veins; T48.6X5A Adverse effect of antiasthmatics, initial encounter; Y92.239 Unspecified place in hospital as the place of occurrence of the external cause; G47.33 Obstructive sleep apnea (adult) (pediatric); I87.2 Venous insufficiency (chronic) (peripheral); L89.322 Pressure ulcer of left buttock, stage 2; L89.312 Pressure ulcer of right buttock, stage 2; L89.212 Pressure ulcer of right hip, stage 2; I35.0 Nonrheumatic aortic (valve) stenosis; L89.222 Pressure ulcer of left hip, stage 2; G62.9 Polyneuropathy, unspecified; Z99.81 Dependence on supplemental oxygen; Z86.718 Personal history of other venous thrombosis and embolism; Z91.119 Patient's noncompliance with dietary regimen due to unspecified reason; Z91.148 Patient's other noncompliance with medication regimen for other reason; Z88.6 Allergy status to analgesic agent; Z88.1 Allergy status to other antibiotic agents; Z88.8 Allergy status to other drugs, medicaments and biological substances; Z79.82 Long term (current) use of aspirin; Z79.51 Long term (current) use of inhaled steroids; I25.2 Old myocardial infarction; Z28.310 Unvaccinated for COVID-19
CPT/HCPCS: 71045; 80053; 82962; 83036; 83735; 83880; 84145; 84484; 85025; 85027; 87502; 87811; 93005; 94640; 96374; 96375; 97163; 97166; 97530; 99291

== ENCOUNTER 2023-08-28 23:43 | Inpatient (IN) | payer MEDICARE, OTHER, SELFPAY ==
[2023-08-28 21:42] VITALS: BP 145/86
--- NOTE | 2023-08-28 21:50 | ED.GENMED ---
History of Present Illness
General
Chief Complaint: Breathing Problem
Source: patient
Exam Limitations: none
Time Seen by Provider: 08/28/23 21:40
Travel History
Have you had any contact with someone who has COVID-19?: No
Do you have any symptoms of coronavirus? Fever > 100 degrees, chills, cough, shortness of breath, sore throat, loss of taste or smell, muscle aches, or headache?: No
History of Present Illness
History of Present Illness:
See MDM
Past History
Past History
ED Past Medical History: Arrthythmia (Frequent PVCs), Asthma, CHF, HTN, Hypercholesterolemia, NIDDM, Other (Chronic lymphedema) and Other (Right lower extremity DVT October 2019)
ED Past Surgical History: Gynecological (Several D&Cs, miscarriage), Tonsilectomy and Other (Cancerous mass removed from right leg 20 years ago. Breast mass removed noncancerous.)
Social History
Tobacco: Non-smoker
Alcohol: None
Personal:
Living: with family
Employment: Retired
Family History
Family History: Other (Noncontributory)
Phy Exam
Physical Exam
Physical Exam:
See MDM
Scores
Heart Failure Risk
Heart Failure Risk Score: Yes
History of Stroke or TIA: No
History of intubation for respiratory distress: No
Heart rate on ED arrival >/= 110: No
SaO2 <90% on arrival on room air: Yes
HR >/=110 during 3min walk test (or too ill to perform test): Yes
ECG has acute ischemic changes: No
Urea >/=12mmol/L (BUN 33.6mg/dL): Yes
Serum CO2>/=35mmol/L: No
Troponin I or T elevated to [place] Level (0.4mg/dL): No
NT-proBNP >/=5,000ng/L (5,000pg/ml): Yes
HF Risk Score: 5
Admission Status: VERY HIGH RISK 39.8% Consider admission to hospital
Course
Orders/Labs/Results
Orders:
Orders
08/28/23 21:44
EKG [Electrocardiogram (*1)] Urgent
Reason for Study: Shortness of Breath
EKG- Treatment ONCE
08/28/23 21:49
CR Chest Portable - 1 View Urgent
Comment:
Reason For Exam: SOB
Reason Study Needs to be Portable: Patient Unstable
08/28/23 21:56
COVID-19 Antigen Urgent
Source: Nasal Swab
Complete Blood Count/With Diff Urgent
Comprehensive Metabolic Panel Urgent
NT-proBNP Urgent
Troponin I Urgent
Influenza A+B Rapid Molecular Urgent
S[facility] Source: Nasal Swab
Specimen Description:
08/28/23 23:04
Furosemide [Lasix] 80 mg IV NOW STA
Abnormal Lab Results
08/28/23
21:56
RBC 3.95 L 10^6/uL
(4.20-5.40)
Hgb 10.8 L g/dL
(12.0-16.0)
Hct 32.9 L %
(37.0-47.0)
MCHC 32.8 L g/dL
(33.0-37.0)
RDW 16.4 H %
(11.5-14.5)
Absolute Lymphs (auto) 0.5 L 10^3/uL
(1.2-3.4)
Absolute Monos (auto) 0.7 H 10^3/uL
(0.1-0.6)
Lymphocytes % 9.3 L %
(20.5-51.1)
Monocytes % 12.6 H %
(1.7-9.3)
BUN 70 H mg/dl
(7-17)
Creatinine 1.6 H mg/dL
(0.6-1.0)
Glucose 160 H mg/dl
(70-99)
Alkaline Phosphatase 139 H U/L
(38-126)
Albumin 3.0 L g/dl
(3.5-5.0)
08/28/23 21:56
08/28/23 21:56
Vital Signs
Initial and Last Documented VS:
Initial Vital Signs
Temp Pulse Resp BP Pulse Ox
97.8 F 86 25 145/86 98
08/28/23 21:42 08/28/23 21:42 08/28/23 21:42 08/28/23 21:42 08/28/23 21:42
Last Documented Vital Signs
Temp Pulse Resp BP Pulse Ox
97.8 F 91 30 111/70 96
08/28/23 21:42 08/28/23 22:45 08/28/23 22:45 08/28/23 22:00 08/28/23 22:30
MDM/Problems Addressed
Differential Diagnosis Includes:
HPI and MDM Narrative:
77-year-old female presenting for evaluation of worsening shortness of breath. This has been an ongoing issue that has progressed over the past few days. Patient has noted that both of her legs becoming more swollen and she is short of breath
laying flat. She states she is normally on 2 L nasal cannula but EMS placed her on for an arrival. Patient states she can barely walk a few feet without becoming short of breath.
On exam, there is a slight wheeze to her left lung base. Patient states she has a history of asthma but states this is more likely related to fluid build up than asthma.
Physical exam
General: Short of breath, uncomfortable
HEENT: protecting airway
Neck: appears supple
CV: No evidence of cyanosis
Resp: No accessory muscle use
Abd: Non-distended
Extremities: Significant bilateral leg swelling with venous congestion changes
Neuro: alert
Psych: Normal affect
Skin: Intact
Problems Addressed including Acute and Chronic Conditions affecting care:
1. Shortness of breath
Acuity: acute
Prognosis: unstable
Details: Will obtain chest x-ray, viral testing and troponin and BNP
Updates
Chest x-ray concerning for pulmonary edema. BNP elevated. Will give 80 mg IV Lasix and admit
Differential Diagnosis (but not limited to): Pneumonia, CHF
Testing considered: D-dimer
Drug therapy (if applicable): OTC meds, please see d/c instruction regarding Rx drugs
Amount and/or Complexity of Data Reviewed
Clinical info obtained from: Patient
External data reviewed: N/A
Labs I independently reviewed (but not limited to): Elevated BNP
Radiology: X-ray independently reviewed: Chest x-ray concerning for pulmonary edema
Pulse Ox: not hypoxic
EKG independently reviewed: Sinus rhythm, PVCs, bigeminy, no STEMI
Dumpcart Driver: Sinus rhythm with PVCs
Critical Care: The high probability of a clinically significant, sudden or life threatening deterioration of the cardiopulmonary system(s) required my full and direct attention, intervention and personal management. The aggregate critical care time
was 33 minutes. This time is in addition to time spent performing reported procedures but includes the following:
[x] Data Review and interpretation
[x] Patient assessment and monitoring of vital signs
[x] Documentation
[x] Medication orders and management
Risk of Complication:
Social Determinants of health: Good social support
Discussed with other providers: Hospitalist
Escalation of Care includes Admit/Obs: Given the pulmonary edema and increased shortness of breath, will give IV Lasix and admit
Occasional wrong word or 'sound a like' substitutions may have occurred due to the inherent limitations of voice recognition software. Read the chart carefully and recognize, using context, where substitutions have occurred.
*Critical Care Note
Total Time (30-74mins, 75-104mins- exclusive of procedures): 33 min
ED Attending Note
-
Portions of this chart may have been created with voice recognition software.� Occasional wrong word or��sound alike� substitutions may have occurred due to the inherent limitations of voice recognition software.
Discharge Plan
Departure
Patient Disposition: Admit
Date of Disposition: 08/28/23
Time of Disposition: 23:12
Admit to: Telemetry
Presentation/result/management discussed w/ accepting MD/DO: Hospitalist
Discharge Problem:
Pulmonary edema
Prescriptions:
No Action
multivitamin with folic acid [Tab-A-Toy] 1 TABLET tablet
1 tab PO NOON
atorvastatin 20 MG tablet
20 mg PO HS
Hold Instructions: Resume on 08/04/23.
repaglinide 0.5 mg Tablet
0.5 mg PO BIDPRN PRN (Reason: BLOOD SUGAR >150 )
aspirin 81 MG tablet,delayed release (DR/EC)
81 mg PO NOON
metolazone 2.5 mg tablet
2.5 mg PO RYAN
furosemide 80 mg tablet
80 mg PO DAILY
acetaminophen [Tylenol] 325 mg Tablet
650 mg PO Q6HPRN PRN (Reason: mild pain)
levalbuterol tartrate [Xopenex HFA] 45 mcg/actuation Hfa Aerosol Inhaler
2 inh INHALATION R DAILYPRN PRN (Reason: sob)
potassium chloride [Klor-Con M20] 20 mEq tablet,ER particles/crystals
20 meq PO RYAN
promethazine-codeine 6.25-10 mg/5 mL Syrup
5 ml PO Q4HPRN PRN (Reason: cough) Qty: 200 0RF
hydralazine 50 mg tablet
50 mg PO BID Qty: 60 0RF
miconazole nitrate [Miconazorb AF] 2 % powder
1 applic topical BID
Referrals:
Miguel Bella, DO [Family Provider] -
Interventions
Interventions:
*Risk Screen - Suicide Last Done: 08/28/23 21:44
*General Assessment Last Done: 08/28/23 21:42
*Neglect/Abuse Screening Last Done: 08/28/23 21:44
ED- Fall Risk Assessment Last Done: 08/28/23 22:09
*ED COVID-19 Vaccine History Last Done: 08/28/23 21:42
ED- Cardiac Assessment Last Done: 08/28/23 22:09
ED- Pulmonary Assessment Last Done: 08/28/23 22:09
[2023-08-28 22:00] VITALS: BP 111/70
[2023-08-28 22:03] LABS: % Basophils 0.5 % (0-2); % Eosinophils 3.5 % (0-6); % Immature Granulocytes 0.2 % (0-0.5); % Lymphocytes 9.3 % (20.5-51.1); % Monocytes 12.6 % (1.7-9.3); % Neutrophils 73.9 % (42.2-75.2); Absolute Eosinophils 0.2 10^3/uL (0-0.7); Absolute Lymphocytes 0.5 10^3/uL (1.2-3.4); Absolute Monocytes 0.7 10^3/uL (0.1-0.6); Absolute Neutrophils 4.2 10^3/uL (1.4-6.5); Hematocrit 32.9 % (37.0-47.0); Hemoglobin 10.8 g/dL (12.0-16.0); Mean Corp Hgb Conc. 32.8 g/dL (33.0-37.0); Mean Corpuscular Hgb 27.3 pg (27.0-31.0); Mean Corpuscular Volume 83.3 fL (81.0-99.0); Nucleated Red Blood Cells % 0 %; Platelet Count 376 10^3/uL (130-400); Red Blood Cell Count 3.95 10^6/uL (4.20-5.40); Red Cell Dist. Width 16.4 % (11.5-14.5); White Blood Cell Count 5.7 10^3/uL (4.8-10.8)
[2023-08-28 22:25] LABS: ALT (SGPT) 19 U/L (0-35); AST (SGOT) 19 U/L (14-36); Alkaline Phosphatase 139 U/L (38-126); Blood Urea Nitrogen 70 mg/dl (7-17); Calcium 8.5 mg/dl (8.4-10.2); Carbon Dioxide 29 mmol/L (22-30); Chloride 100 mmol/L (98-107); Glucose 160 mg/dl (70-99); Potassium 3.6 mmol/L (3.5-5.1); Sodium 138 mmol/L (135-145); Total Bilirubin 0.5 mg/dl (0.2-1.3); Total Protein 7.6 g/dl (6.3-8.2)
[2023-08-28 22:27] LABS: NT-proBNP 11300 pg/ml; Troponin I 0.025 ng/ml
[2023-08-28 22:34] LABS: COVID-19 Antigen Negative (Negative)
--- NOTE | 2023-08-28 23:19 | HPS.HSE ---
Addendum entered and electronically signed by Amna oJy MD 08/28/23 23:45:
Patient seen examined independently with [facility].� 77-year-old female with past medical history of sleep apnea not on CPAP, asthma, prior DVT, HFrEF, chronic hypoxic respiratory failure on 2 L, chronic lymphedema, hypertension, hyperlipidemia, type 2
diabetes, obesity presenting with shortness of breath over the past 2 days.��
She is also complaining of right shoulder pain and difficulty lifting the right upper extremity upwards.� This started today.
Patient recently admitted from 07/27 to 07/31 for COVID infection treated with dexamethasone and Paxlovid.� She also received IV Lasix for for volume overload.
On examination has bilateral expiratory wheezing.� Bilateral lower extremity swelling appears like stasis dermatitis with chronic lymphedema.� Right shoulder appears enlarged and is tender to palpation without palpable effusion.� She is having
limited range of motion upwards.
Chest x-ray shows cardiomegaly, interstitial/alveolar pulmonary edema.� Cardiac BNP of 11,000 from 7600.� 80 IV Lasix given in ER.� 60 IV Lasix twice daily.� Cardiology consulted.� Patient has ALMA on CKD 3B likely component of cardiorenal syndrome.
Hold metolozone.� No compelling evidence for pulmonary embolism at this time but will check venous ultrasound to evaluate for DVT since high risk.
Possible rotator cuff injury. vs arthritis.� Check right shoulder x-ray.
Original Note:
Family Physician
-
Family Physician: Miguel Bella
Chief Complaint
-
Shortness of breath, posterior shoulder pain, right shoulder pain
History of Present Illness
77-year-old female from home where her daughter and son live with her. She states that she sleeps and eats in a recliner. She stands with a walker and walks a few feet to the bathroom only. She reports shortness of breath acute onset today with
posterior scapular pain. She states she had a weight gain of 15 pounds over the past 2 days was 246 pounds at home is currently 261 pounds today in the ER. She also reports limited range of motion of her right arm only able to lift to elbow level
along with anterior tenderness but denies any injury. She denies cough, fever, chills, chest pain, palpitations, abdominal pain, nausea, vomiting, diarrhea, urinary symptoms. She reports her chronic leg lymphedema/venous stasis dermatitis is the
same as it has been. She is on chronic 2 L nasal cannula but was unable to adjust her oxygen due to it being on the floor.
She had a recent admission on 07/27 - 07/31/2023 for COVID treated with dexamethasone Paxlovid and bronchodilators.
PMH chronic CHF EF 40-45%, chronic lymphedema chronic venous stasis, DM 2, stage IIIb kidney disease, essential HTN, history of bradycardia, HLD, morbid obesity, bilateral buttocks healing stage II pressure ulcer, bilateral posterior thighs healing
stage II ulcer, right lower extremity DVT October 2019.
Medical History
Past Medical History
Past Medical History: Reports Other
Additional Past Medical History:
COVID-19 treated with Paxlovid and Decadron 07/27/2021 - 07/31/2023
Chronic hypoxic respiratory failure on home oxygen 1-2 L via NC
Chronic HFrEF (40-45%)
Frequent PVCs and bigeminy
Asthma
Chronic Lymphedema and chronic venous stasis changes
Hypertension
HLD
DM II
MARIAMA
Peripheral Neuropathy
History of DVT
Morbid Obesity
Medication and dietary non-adherence
Past Surgical History: Reports Other
Additional Past Surgical History:
B/l cataract surgery, Several D&Cs, miscarriage, Tonsilectomy, Cancerous mass removed from right leg 20 years ago, Breast mass removed noncancerous.
Social History
Tobacco: Non-smoker (Never smoked )
Alcohol: None
Drug: None
Personal:
Living: With Family
Family History
Family History: Not pertinent
Allergies / Home Medications
Allergies reflects when Allergies were last updated in [employer].
Home Medications with original date entered in [employer]
Allergy/Medication List:
Allergies
Allergy/AdvReac Type Severity Reaction Status Date / Time
albuterol Allergy 'could not Verified 08/28/23 21:46
breath'
cefuroxime [From Ceftin] Allergy facial Verified 08/28/23 21:46
droop,lip
swell/Margie
ceftrx,
cefepime,
cefazolin
latex Allergy Rash Verified 08/28/23 21:46
levofloxacin [From Levaquin] Allergy facial Verified 08/28/23 21:46
droop,
rash,
numbness
lisinopril Allergy Shortness Verified 08/28/23 21:46
of Breath
naproxen Allergy Rash Verified 08/28/23 21:46
NSAIDS (Non-Steroidal Allergy Rash Verified 08/28/23 21:46
Anti-Inflamma
poison aroldo extract Allergy Unknown Verified 08/28/23 21:46
poison oak extract Allergy Unknown Verified 08/28/23 21:46
Home Medications
multivitamin with folic acid 400 mcg tablet (Tab-A-Toy) 1 tab PO NOON Supplement 09/22/16
atorvastatin 20 mg tablet 20 mg PO HS High cholesterol 11/08/19
repaglinide 0.5 mg tablet 0.5 mg PO BIDPRN PRN BLOOD SUGAR >150 07/01/22
aspirin 81 mg tablet,delayed release 81 mg PO NOON Blood clot prevention/tx 09/01/22
metolazone 2.5 mg tablet 2.5 mg PO RYAN Fluid Retention/Swelling 03/15/23
furosemide 80 mg tablet 80 mg PO DAILY Fluid Retention/Swelling 04/26/23
acetaminophen 325 mg tablet (Tylenol) 650 mg PO Q6HPRN PRN mild pain 07/27/23
levalbuterol tartrate 45 mcg/actuation aerosol inhaler (Xopenex HFA) 2 inh inhalation R DAILYPRN PRN sob 07/27/23
potassium chloride 20 mEq tablet,extended release(part/cryst) (Klor-Con M) 20 meq PO RYAN Supplement 07/27/23
hydralazine 50 mg tablet 50 mg PO BID #60 tabs 07/31/23
promethazine 6.25 mg-codeine 10 mg/5 mL syrup 5 ml PO Q4HPRN PRN cough #200 mL 07/31/23
miconazole nitrate 2 % topical powder (Miconazorb AF) 1 applic topical BID FOLDS 08/28/23
Review of Systems
-
History Source: Patient
A 12 point ROS was completed and negative except as noted: Yes
Constitutional: Reports Weight Gain (15 pounds past 2 days) and Chills; Denies Fatigue
EENT: Denies Sore Throat or Runny Nose
Respiratory: Reports Trouble Breathing; Denies Cough
Cardiac: Denies Chest Pain, Diaphoresis, Palpitations or Syncope
Abdomen/GI: Denies Abdominal Pain, Nausea, Vomiting, Diarrhea, Constipated or Bloody Stools
: Denies Dysuria, Frequency, Flank Pain, Incontinence or Difficulty Voiding
Musculoskeletal: Reports Joint Pain (Right shoulder with limited range of motion) and Edema (Chronic venous stasis dermatitis +2 lower extremities bilaterally); Denies Joint Swelling
Skin: Denies Itching or Rash
Neurological: Denies Dizzy, Headache or Weakness
Endocrine: Reports No Symptoms
Hematologic/Lymphatic: Reports No Symptoms
Psych: Reports Calm
Physical Exam
Vital Signs
Vital Signs
Temp Pulse Resp BP Pulse Ox
97.8 F 91 30 111/70 96
08/28/23 21:42 08/28/23 22:45 08/28/23 22:45 08/28/23 22:00 08/28/23 22:30
Physical Exam
General: Conversant and Other (Shortness of breath with activity); No Pain or Fever
HEENT: NormoCephalic, Anicteric, PERRLA, [place] Conjunctivae and No Ptosis
Respiratory: Wheezes (Expiratory wheezing bilaterally); No Rales or Rhonchi
Cardiac: S1/S2, Regular Rhythm and Peripheral Edema (Chronic venous stasis dermatitis +2 lower extremities bilaterally); No Murmur, Rub or Gallop
Breast: Deferred by me
GI: Soft, Non Tender, Non Distended, Normal Bowel Sounds and No Hepatosplenomegaly
Rectal: Deferred by Provider
Genito-urinary: Deferred by me
Musculoskeletal: No Clubbing, No Cyanosis, Edema, Left Lower Extremity (Chronic venous stasis dermatitis +2 lower extremities bilaterally), Edema, Right Lower Extremity (Chronic venous stasis dermatitis +2 lower extremities bilaterally) and Other
(Limited range of motion right to elbow level, tenderness right anterior shoulder with no appreciated effusion); No Edema, Left Upper Extremity or Edema, Right Upper Extremity
Skin: Warm and Dry; No Rash or Jaundice
Neuro: AO x 3, Nonfocal/grossly intact and No Sensory Deficits; No Slurred Speech, Facial Droop or Tremors
Psych: Calm
Laboratory Results
-
08/28/23 21:56
08/28/23 21:56
Laboratory Results
Total Bilirubin 0.5 mg/dl (0.2-1.3) 08/28/23 21:56
AST 19 U/L (14-36) 08/28/23 21:56
ALT 19 U/L (0-35) 08/28/23 21:56
Alkaline Phosphatase 139 U/L (38-126) H 08/28/23 21:56
Troponin I 0.025 ng/ml 08/28/23 21:56
Impression/Plan
-
Impression/plan:
Admit to telemetry
#Acute on chronic CHF/cardiomyopathy
#Chronic hypoxic respiratory failure on chronic 2 L nasal cannula
I/O, daily weight
Patient reports 246 pounds 2 days ago at home now 261 pounds today 08/28/2023= 15 LBS in 2 days
BNP 11,300 > 7000
Recent 2D echo EF 40-45%
-IV 80 mg Lasix given in the ER, continue IV Lasix 60 mg twice daily
-Hold metolazone 2.5 mg on days
-Consult cardiology
-PT/OT/case management eval
#Peripheral edema concern for possible DVT given prolonged sitting
Check venous Dopplers bilaterally
#ALMA on CKD 3B 07/31 cardiorenal
Creat 1.6 was 1.2 on 07/31/2023
-Follow BMP given need for diuresis
#Right shoulder limited range of motion concern for rotator cuff injury versus arthritis
-Check x-ray of the right shoulder
#COVID-19 infection 07/27 - 07/31/2023
-Treated with dexamethasone and Paxlovid along with bronchodilators
#HTN�benign
Continue hydralazine 50 mg twice daily
#DM 2
Accu-Cheks with SSI, check HgbA1c
-Continue repaglinide 0.5 mg twice daily blood sugar in the 150
#HLD
-May continue atorvastatin 20 mg at bedtime
#Asthma-no acute exacerbation
#Sleep apnea
-Stopped using CPAP several years ago
#Chronic lymphedema chronic venous stasis
#Right lower extremity DVT October 2019
Morbid obesity due to excess calorie consumption
Weight loss recommended, 1800diet, fluid restrict
Other PMH:
bilateral buttocks healing stage II pressure ulcer on prior admit
bilateral posterior thighs healing stage II ulcer on prior admit
-Consult wound care
DVT prophylaxis
Subcu heparin
Full code
[2023-08-28] MEDS: LASIX 80 MG IV (23:28)
[2023-08-29] VITALS (10 sets, daily range): BP systolic 106–146; BP diastolic 53–115; PULSE 72; O2SAT 97
[2023-08-29] MEDS: TYLENOL 650 MG PO (05:10)
[2023-08-29 07:37] LABS: % Basophils 0.8 % (0-2); % Eosinophils 2.8 % (0-6); % Immature Granulocytes 0.6 % (0-0.5); % Lymphocytes 8.1 % (20.5-51.1); % Monocytes 14.7 % (1.7-9.3); Absolute Basophils 0.1 10^3/uL (0-0.2); Absolute Eosinophils 0.2 10^3/uL (0-0.7); Absolute Lymphocytes 0.5 10^3/uL (1.2-3.4); Absolute Monocytes 0.9 10^3/uL (0.1-0.6); Absolute Neutrophils 4.7 10^3/uL (1.4-6.5); Mean Corp Hgb Conc. 32.3 g/dL (33.0-37.0); Mean Corpuscular Hgb 27.5 pg (27.0-31.0); Mean Corpuscular Volume 85.4 fL (81.0-99.0); Mean Platelet Volume 9.2 fL (7.4-10.4); Nucleated Red Blood Cells % 0 %; Platelet Count 357 10^3/uL (130-400); Red Blood Cell Count 3.63 10^6/uL (4.20-5.40); Red Cell Dist. Width 16.3 % (11.5-14.5); White Blood Cell Count 6.4 10^3/uL (4.8-10.8)
[2023-08-29 08:14] LABS: ALT (SGPT) 15 U/L (0-35); AST (SGOT) 15 U/L (14-36); Alkaline Phosphatase 119 U/L (38-126); Blood Urea Nitrogen 65 mg/dl (7-17); Calcium 8.2 mg/dl (8.4-10.2); Carbon Dioxide 31 mmol/L (22-30); Chloride 101 mmol/L (98-107); Glucose 102 mg/dl (70-99); Potassium 3.5 mmol/L (3.5-5.1); Sodium 140 mmol/L (135-145); Total Bilirubin 0.7 mg/dl (0.2-1.3); Total Protein 6.8 g/dl (6.3-8.2); eGFR 35.23
--- NOTE | 2023-08-29 08:19 | CON.CAR ---
Addendum entered and electronically signed by Elise Pereira DO 08/29/23 22:40:
I saw and examined the patient.
The Placement Manager's note was reviewed and I agree with the note.
Comment: Carmen is a 77 year old female with PMH of chronic hypoxia on 2 L nasal cannula, chronic HFmEF, Mild to moderate aortic stenosis, mitral sclerosis with mild MR, hypertension, hyperlipidemia, renal insufficiency, MARIAMA [intolerant to
CPAP], type 2 diabetes mellitus, bradycardia, PVCs, peripheral neuropathy, lymphedema, DVT, morbid obesity, immobility with sacral pressure ulcers and noncompliance. She was recently admitted 07/27/2023 to 07/31/2023 for COVID-19 infection treated with
dexamethasone and Paxlovid. She was admitted 08/28/2023 with shortness of breath and increased weight approximately 15 pounds over the last several days. She denies dietary or medication noncompliance. She typically takes Lasix 80 mg daily and
Zaroxolyn 2.5 mg on Thursday. She lives at home with family with limited mobility. She denies falls but reports new right shoulder/arm pain with limited range of motion.� She denies chest pain or pressure. Initial labs: proBNP 11,300, BUN 70,
creatinine 1.6, troponin 0.025.� EKG on admission showed sinus rhythm with ventricular bigeminy.� Chest x-ray demonstrated increased interstitial markings bilaterally as well as patchy parenchymal opacity within both lower lungs.� Lower extremity
Doppler negative for DVT with enlarged bilateral groin lymph nodes. Right shoulder x-ray showed severe rotator cuff arthropathy with high riding position of the humeral head. Patient was provided 80 mg IV Lasix in emergency department. She does
not feel that she has diuresed effectively with IV Lasix and continues to have right shoulder pain. No chest pain.
GEN: Chronically ill 77-year-old female who appears older than her stated age
HEENT: Nasal cannula O2. Mucous membranes moist
LUNGS:faint expiratory wheezing with decreased breath sounds bilaterally, crackles at bases
CV: Regular with ectopy. Positive S1-S2. 2/6 systolic murmur
ABD: Obese, nontender. Positive bowel sounds
EXT: +2 edema with thickened skin folds, hyperpigmentation, consistent with chronic venous stasis
Plan:
Acute on chronic heart failure exacerbation with low normal ejection fraction
-proBNP 11,300
-Weight down 4 pounds overnight, still volume overloaded
-Continue diuresis with IV Lasix 80 mg IV twice daily. Will add metolazone 2.5 mg tomorrow before a.m. dose
-Monitor renal function closely with diuresis, did improve from 1.6 to 1.5
-Keep K greater than 4, mag greater than 2
-Historically, goal-directed medical therapy has been limited by patient preference as well as renal insufficiency
-Monitor telemetry. Consider addition of low-dose beta-lucero however she has had bradycardia in the past
-She has declined Jardiance in the past
-Reported allergy to KAROLINA inhibitor�unsure of reaction. Continue hydralazine and consider adding Isordil
-No need to repeat echocardiogram at this time
-Check TSH
Lymphedema, chronic venous stasis changes
-Lower extremity duplex negative for DVT; she has a history of a DVT October 2019
-Malodorous�Rocephin added for possible cellulitis
-Lower extremity duplex noted bilateral groin lymph nodes with a history of a cancerous mass removed from the groin years ago. Will discuss with internal medicine any role for CT of the abdomen pelvis
-Right arm/shoulder pain xray shows severe rotator cuff arthropathy with a high riding position of the humeral head. Defer to primary service
Original Note:
Consultation
Consultation Request
Date/Time Consultation Requested: 08/28/2023
Date/Time Consultation Performed: 08/29/2023
Requesting Provider: Dr. Joy
Performing Provider: Annabelle Samson PA-C for Dr. Pereira
Reason for Consultation: SOB/heart failure
Medical History
-
History of Present Illness:
Carmen is a 77 year old female with PMH of chronic hypoxic respiratory failure, chronic HFrEF, frequent PVCs, asthma, lymphedema, hypertension, hyperlipidemia, diabetes, MARIAMA, peripheral neuropathy, DVT, morbid obesity, and noncompliance who
presented 08/28/2023 with shortness of breath for the last several days. Patient reports she has gained 15 pounds over the last several days as well. She also developed acute right shoulder/arm pain with limited range of motion. proBNP 11,300, BUN
70, creatinine 1.6, troponin 0.025. EKG on admission showed sinus rhythm with ventricular bigeminy. Chest x-ray demonstrated increased interstitial markings bilaterally as well as patchy parenchymal opacity within both lower lungs. Patient was
provided 80 mg IV Lasix in emergency department.
She was recently admitted 07/27/2023 to 07/31/2023 for COVID-19 infection treated with dexamethasone and Paxlovid.
PMH:
COVID-19 treated with Paxlovid and Decadron 07/27/2021 - 07/31/2023
Chronic hypoxic respiratory failure on home oxygen 1-2 L via NC
Chronic HFrEF (40-45%)
Frequent PVCs and bigeminy
Asthma
Chronic Lymphedema and chronic venous stasis changes
Hypertension
HLD
DM II
MARIAMA
Peripheral Neuropathy
History of DVT
Morbid Obesity
Medication and dietary non-adherence
Past Medical History
Past Medical History: Other (See HPI)
Past Surgical History: Other (B/l cataract surgery, Several D&Cs, miscarriage, Tonsilectomy, Cancerous mass removed from right leg 20 years ago, Breast mass removed noncancerous)
Social History
Tobacco: Non-Smoker
Alcohol: None
Drug: None
Personal:
Living: With Family
Family History
Family History: Cancer
Allergies / Home Medications
Allergy/AdvReac Type Severity Reaction Status Date / Time
albuterol Allergy 'could not Verified 08/28/23 21:46
breath'
cefuroxime [From Ceftin] Allergy facial Verified 08/28/23 21:46
droop,lip
swell/Margie
ceftrx,
cefepime,
cefazolin
latex Allergy Rash Verified 08/28/23 21:46
levofloxacin [From Levaquin] Allergy facial Verified 08/28/23 21:46
droop,
rash,
numbness
lisinopril Allergy Shortness Verified 08/28/23 21:46
of Breath
naproxen Allergy Rash Verified 08/28/23 21:46
NSAIDS (Non-Steroidal Allergy Rash Verified 08/28/23 21:46
Anti-Inflamma
poison aroldo extract Allergy Unknown Verified 08/28/23 21:46
poison oak extract Allergy Unknown Verified 08/28/23 21:46
Medication Instructions Recorded Confirmed Type
multivitamin with folic acid 400 1 tab PO NOON Supplement 09/22/16 08/28/23 History
mcg tablet (Tab-A-Toy)
atorvastatin 20 mg tablet 20 mg PO HS High cholesterol 11/08/19 08/28/23 History
repaglinide 0.5 mg tablet 0.5 mg PO BIDPRN PRN BLOOD SUGAR 07/01/22 08/28/23 History
>150
aspirin 81 mg tablet,delayed 81 mg PO NOON Blood clot 09/01/22 08/28/23 History
release prevention/tx
metolazone 2.5 mg tablet 2.5 mg PO RYAN Fluid 03/15/23 08/28/23 History
Retention/Swelling
furosemide 80 mg tablet 80 mg PO DAILY Fluid 04/26/23 08/28/23 History
Retention/Swelling
acetaminophen 325 mg tablet 650 mg PO Q6HPRN PRN mild pain 07/27/23 08/28/23 History
(Tylenol)
levalbuterol tartrate 45 2 inh inhalation R DAILYPRN PRN sob 07/27/23 08/28/23 History
mcg/actuation aerosol inhaler
(Xopenex HFA)
potassium chloride 20 mEq 20 meq PO RYAN Supplement 07/27/23 08/28/23 History
tablet,extended
release(part/cryst) (Jordanor-Con M)
hydralazine 50 mg tablet 50 mg PO BID #60 tabs 07/31/23 08/28/23 Rx
promethazine 6.25 mg-codeine 10 5 ml PO Q4HPRN PRN cough #200 mL 07/31/23 08/28/23 Rx
mg/5 mL syrup
miconazole nitrate 2 % topical 1 applic topical BID FOLDS 08/28/23 08/28/23 History
powder (Miconazorb AF)
Review of Systems
-
History Source: Patient
All other systems: Negative unless noted
Physical Exam
Vital Signs
Temp Pulse Resp BP Pulse Ox
98.6 F 67 18 134/74 98
08/29/23 07:49 08/29/23 07:49 08/29/23 07:49 08/29/23 07:49 08/29/23 07:49
GEN: No distress, awake, Ox3
HEENT: supple, anicteric, mmm
LUNGS:faint expiratory wheezing with decreased breath sounds bilaterally, crackles at bases, wearing oxygen
CV: distant heart tones, Reg with ectopy, S1/S2, 2/6 basal syst murmur
ABD: soft, BS+, NT/ND
EXT: +2 edema with thickened skin consistent with chronic venous stasis
NEURO: Gross non-focal
SKIN: No rash, warm, dry
Lab Results
08/29/23 07:13
08/29/23 07:13
Troponin I 0.025 ng/ml 08/28/23 21:56
Ghq-[id number]-Lukrgwurntm Pept 15513 pg/ml 08/28/23 21:56
Impression / Plan
-
PCP: Cris Avilez PA-C
English Adjunct Faculty: Dr. Ott
Impression:
Presented 08/28/2023 with progressively worsening shortness of breath, weight gain
Acute on chronic heart failure with mildly reduced ejection fraction, proBNP 11,300
ALMA
Right shoulder/arm pain
COVID-19 treated with Paxlovid and Decadron 07/27/2021 - 07/31/2023
Chronic hypoxic respiratory failure on home oxygen 1-2 L via NC
Chronic HFrEF (40-45%)
NonMI troponin elevation
Hypokalemia
Frequent PVCs and bigeminy
Asthma/COPD
Chronic Lymphedema and chronic venous stasis changes
Hypertension
HLD
DM II
MARIAMA
Peripheral Neuropathy
History of DVT
Morbid Obesity
Medication and dietary non-adherence
Echo 08/22/21:�LVEF 53%, mild LVH, Mild MR, Mild 20/10 PRECIOUS 1.7cm2, mild AI
Echo 03/24/22: Technically limited study and patient was scanned in a wheelchair. No regional wall motion abnormalities are seen. LV ejection fraction is 53% by Phan's biplane method�of discs. Mild left ventricular hypertrophy. Normal diastolic
function. Mild mitral regurgitation is seen. This may be underestimated due to acoustic shadowing. Mild aortic stenosis. Peak/mean gradients across the aortic valve 20/10 mmHg. Using an LVOT diameter�of 2.0 cm the aortic valve by the Continuity
equation is calculated at 1.7 cm2. Mild aortic regurgitation.
Echo 12/18/2022:�EF 40-45%, global hypokinesis, moderate cLVH, stage II diastolic dysfunction, mild MS, mild MR, severely dilated LA, moderate with peak/mean gradients 45/20 mmHg, PRECIOUS 1.2 cm2, mild AR, mild TR, estimated PAP 42 mmHg,
Echo 03/16/2023: EF 45-50%, moderate cLVH, global hypokinesis, mild MR, mild to moderate with peak/mean gradients 21/12 mmHg, mild TR, estimated PAP 30-35 mmHg
Plan:
Carmen is a 77 year old female with PMH of chronic hypoxic respiratory failure, chronic HFrEF, frequent PVCs, asthma, lymphedema, hypertension, hyperlipidemia, diabetes, MARIAMA, peripheral neuropathy, DVT, morbid obesity, and noncompliance who
presented 08/28/2023 with shortness of breath for the last several days. Patient reports she has gained 15 pounds over the last several days as well. She also developed acute right shoulder/arm pain with limited range of motion. proBNP 11,300, BUN
70, creatinine 1.6, troponin 0.025. EKG on admission showed sinus rhythm with ventricular bigeminy. Chest x-ray demonstrated increased interstitial markings bilaterally as well as patchy parenchymal opacity within both lower lungs. Patient was
provided 80 mg IV Lasix in emergency department.
She was recently admitted 07/27/2023 to 07/31/2023 for COVID-19 infection treated with dexamethasone and Paxlovid. She is very sedentary. She does ambulate minimal distance with assistance and use of walker.
-Presented 08/28/2023 with progressively worsening shortness of breath, weight gain
-Acute on chronic heart failure with mildly reduced ejection fraction,proBNP 11,300 on admission
-Weight down 4 pounds overnight, still volume overloaded
-Continue diuresis with IV Lasix 80 mg IV twice daily. {Patient takes Lasix 80 mg daily as outpatient and Metolazone 2.5 mg on Metolazone on Thursday}
-Monitor renal function closely with diuresis, did improve from 1.6 to 1.5
-Potassium 3.5. Replete, add on magnesium level
-T/C adding beta-lucero if wheezing improves; patient has declined BB in past
-She has declined Jardiance in the past
-ALMA prevents addition of KAROLINA-I/ARB at this time; had SOB/cough w/ lisinopril in past, could consider ARB
-Echo in February 2023 as noted above
-Per review of telemetry patient in sinus rhythm with frequent PVCs, periods of ventricular bigeminy. This is a chronic finding and not new. Would consider adding low-dose beta-lucero
-Right arm/shoulder pain xray shows severe rotator cuff arthropathy with a high riding position of the humeral head. Defer to primary service
Data Reviewed
-
EKG: Report Reviewed by me, Discussed with Physician and Discussed with Patient
Radiology: Report Reviewed by me, Discussed with Physician and Discussed with Patient
Labs: Labs Reviewed by me, Discussed with Physician and Discussed with Patient
Old Records: Reviewed
[2023-08-29 08:42] LABS: Albumin 2.9 g/dl (3.5-5.0)
[2023-08-29] MEDS: APRESOLINE 50 MG PO ×2 (09:13→20:29)
[2023-08-29] MEDS: KCL 40 MEQ PO ×2 (09:13→17:11)
[2023-08-29] MEDS: HEPARIN 5000 UNITS SC ×2 (09:13→20:29)
[2023-08-29] MEDS: LASIX 60 MG IV (09:13)
[2023-08-29] MEDS: DESENEX/MITRAZOL/ZEASORB 1 APPLIC TOPICAL ×2 (09:13→20:31)
--- NOTE | 2023-08-29 13:32 | W.PN.HOSP.TC ---
Today's Communication/Plan
-
cont IV lasix BID
daily weights
I/Os
start rocephin
Assessment / Plan
Assessment / Plan
pt is a 77 year old female
Acute on chronic systolic CHF with cardiomyopathy and Chronic hypoxic respiratory failure on chronic 2 L nasal cannula--cont diuresis, daily weights, I/Os--BNP 42398--Fuwodq 2D echo EF 40-45%--cont BID IV lasix--Hold metolazone 2.5 mg on days
Peripheral edema concern for possible DVT given prolonged sitting--US neg for DVT--seems more like chronic venous stasis/lymphedema--nursing reports drainage, foul smelling--will add rocephin
ALMA on CKD stage 3B due to possible cardiorenal--Creat 1.6 was 1.2 on 07/31/2023--Follow BMP given need for diuresis
Right shoulder limited range of motion concern for rotator cuff injury versus arthritis--x-ray of the right shoulder reviewed--will need outpt ortho f/u
Essential HTN--Continue hydralazine 50 mg twice daily
DM 2--�Accu-Cheks with SSI, check [id number]--Npyfuwhd repaglinide 0.5 mg twice daily blood sugar in the 150
HLD--May continue atorvastatin 20 mg at bedtime
Asthma-no acute exacerbation
Obstructive sleep apnea--Stopped using CPAP several years ago
Right lower extremity DVT October 2019
Morbid obesity due to excess calorie consumption
Weight loss recommended, 1800diet, fluid restrict
Other PMH:
bilateral buttocks healing stage II pressure ulcer on prior admit--bilateral posterior thighs healing stage II ulcer on prior admit--Consult wound care
DVT prophylaxis--Subcu heparin
Code statusFull code
Anticipated Discharge: > 48 hours
Subjective/Interval History
-
Date of Service: August 29, 2023
pt says breathing better
Objective Data
-
Labs:
Laboratory Results
08/29/23
07:13
WBC 6.4
Hgb 10.0 L
Hct 31.0 L
Plt Count 357
Sodium 140
Potassium 3.5
Chloride 101
Carbon Dioxide 31 H
BUN 65 H
Creatinine 1.5 H
Glucose 102 H
Calcium 8.2 L
Total Bilirubin 0.7
AST 15
ALT 15
Alkaline Phosphatase 119
Vital Signs:
max temp for 24 hours
08/29/23
03:33
Temp 98.9 F
Vital Signs
Temp Pulse Resp BP Pulse Ox
98.4 F 61 19 140/64 97
08/29/23 11:29 08/29/23 11:29 08/29/23 11:29 08/29/23 11:29 08/29/23 11:29
I&O
08/28/23 08/29/23 08/30/23
06:59 06:59 06:59
Output Total 200 / 200
Balance -200 / -200
Review of Systems
-
All other systems: Reviewed and negative
Physical Exam
-
General: Well Developed, Well Nourished and Morbidly Obese; Negative No Apparent Distress (appears SOB)
HEENT: Normocephalic, Atraumatic and Oxygen
Respiratory: Decreased Breath Sounds (limited exam)
Cardiac: Regular Rhythm, S1/S2 and Murmur
GI: Soft, Nontender, Nondistended and Normal Bowel Sounds
Musculoskeletal: No Clubbing and No Cyanosis; Negative No Edema (edema with chronic thickened skin folds)
Skin: Warm
Neuro: Awake and Alert
Psych: Calm
--- NOTE | 2023-08-29 14:59 | CM ---
Chart reviewed. Spoke with pt at bedside
Pt lives with her son and daughter in a 2 story home
Has first floor set-up; Minimal assistance needed at home
DME includes rolling walker, cane, wheel chair, shower chair and oxygen([employer])
Denies past home health/SNF
Will have ride at d/c
PCP - Dr. Akbar Bella
Pharm - [facility]
PT/OT recs pending
Plan - anticipate home to previous setting - needs tbd
[2023-08-29] MEDS: ROCEPHIN 1000 MG IV (17:10)
[2023-08-29] MEDS: LASIX 80 MG IV (17:10)
[2023-08-29] MEDS: STERILE WATER FOR INJECTION 10 ML IV (17:11)
[2023-08-29] MEDS: THERAGRAN 1 TABLET PO (17:11)
--- NOTE | 2023-08-29 18:45 | PTCARENOTE ---
Pt with two heavy assist Out of chair into bedside commode. pt voided 325 ml clear yellow urine. Pt then assisted back to bed. her BLE had large amount of fluid leaking out of legs. lets with foul odor. IV ROcephin Started as per MD order
[2023-08-29] MEDS: XOPENEX HFA 45 MCG INHALER 2 PUFF INH (20:50)
[2023-08-29] MEDS: LIPITOR 20 MG PO (22:11)
[2023-08-30 03:12] VITALS: BP 130/53
[2023-08-30 06:06] VITALS: BMI 44.3
[2023-08-30] MEDS: ZAROXOLYN 2.5 MG PO (06:08)
[2023-08-30 06:30] VITALS: BMI 44.3
[2023-08-30 07:16] LABS: % Basophils 0.7 % (0-2); % Eosinophils 3.3 % (0-6); % Immature Granulocytes 0.7 % (0-0.5); % Lymphocytes 3.4 % (20.5-51.1); % Monocytes 9.8 % (1.7-9.3); % Neutrophils 82.1 % (42.2-75.2); Absolute Eosinophils 0.2 10^3/uL (0-0.7); Absolute Lymphocytes 0.2 10^3/uL (1.2-3.4); Absolute Monocytes 0.6 10^3/uL (0.1-0.6); Hematocrit 30.8 % (37.0-47.0); Hemoglobin 10.3 g/dL (12.0-16.0); Mean Corp Hgb Conc. 33.4 g/dL (33.0-37.0); Mean Corpuscular Hgb 27.6 pg (27.0-31.0); Mean Corpuscular Volume 82.6 fL (81.0-99.0); Mean Platelet Volume 9.1 fL (7.4-10.4); Platelet Count 359 10^3/uL (130-400); Red Blood Cell Count 3.73 10^6/uL (4.20-5.40); Red Cell Dist. Width 16.5 % (11.5-14.5); White Blood Cell Count 6.1 10^3/uL (4.8-10.8)
[2023-08-30 07:25] VITALS: BP 123/59
[2023-08-30 07:40] LABS: ALT (SGPT) 16 U/L (0-35); AST (SGOT) 21 U/L (14-36); Albumin 2.9 g/dl (3.5-5.0); Alkaline Phosphatase 125 U/L (38-126); Blood Urea Nitrogen 62 mg/dl (7-17); Carbon Dioxide 25 mmol/L (22-30); Chloride 106 mmol/L (98-107); Estimated Creatinine Clearance 38 ml/min; Glucose 94 mg/dl (70-99); Magnesium 2.5 mg/dl (1.6-2.3); Potassium 4.3 mmol/L (3.5-5.1); Sodium 138 mmol/L (135-145); Total Bilirubin 0.8 mg/dl (0.2-1.3); Total Protein 6.9 g/dl (6.3-8.2); eGFR 35.23
[2023-08-30] MEDS: HEPARIN 5000 UNITS SC ×2 (08:53→20:39)
[2023-08-30] MEDS: DESENEX/MITRAZOL/ZEASORB 1 APPLIC TOPICAL ×2 (08:53→20:41)
[2023-08-30] MEDS: LASIX 80 MG IV ×2 (08:53→16:57)
[2023-08-30] MEDS: APRESOLINE 50 MG PO ×2 (08:53→20:39)
[2023-08-30 11:16] VITALS: BP 123/57
[2023-08-30 11:38] VITALS: BMI 44.3
--- NOTE | 2023-08-30 11:51 | W.PN.HOSP.TC ---
Today's Communication/Plan
-
cont rocephin
await culture of leg
cont diuresis
Assessment / Plan
Assessment / Plan
pt is a 77 year old female
Acute on chronic systolic CHF with cardiomyopathy and Chronic hypoxic respiratory failure on chronic 2 L nasal cannula--cont diuresis, daily weights, I/Os--BNP 56998--Rweivu 2D echo EF 40-45%--cont BID IV lasix-- metolazone 2.5 mg as per cards
Peripheral edema concern for possible DVT given prolonged sitting--US neg for DVT--seems more like chronic venous stasis/lymphedema--nursing reports drainage, foul smelling-- added rocephin, cultured
ALMA on CKD stage 3B-- due to possible cardiorenal--Creat 1.6 was 1.2 on 07/31/2023--Follow BMP given need for diuresis
Right shoulder limited range of motion concern for rotator cuff injury versus arthritis--x-ray of the right shoulder reviewed--will need outpt ortho f/u
Essential HTN--Continue hydralazine 50 mg twice daily
DM 2--�Accu-Cheks with SSI, check [id number]--Cntgqxyv repaglinide 0.5 mg twice daily blood sugar in the 150
HLD--May continue atorvastatin 20 mg at bedtime
Asthma-no acute exacerbation
Obstructive sleep apnea--Stopped using CPAP several years ago
Right lower extremity DVT October 2019
Morbid obesity due to excess calorie consumption
Weight loss recommended, 1800 diet, fluid restrict
Other PMH:
bilateral buttocks healing stage II pressure ulcer on prior admit--bilateral posterior thighs healing stage II ulcer on prior admit--Consult wound care
DVT prophylaxis--Subcu heparin
Code status Full code
Anticipated Discharge: > 48 hours
Subjective/Interval History
-
Date of Service: August 30, 2023
pt says breathing better--leg weeping
Objective Data
-
Labs:
Laboratory Results
08/30/23
06:42
WBC 6.1
Hgb 10.3 L
Hct 30.8 L
Plt Count 359
Sodium 138
Potassium 4.3
Chloride 106
Carbon Dioxide 25
BUN 62 H
Creatinine 1.5 H
Glucose 94
Calcium 8.0 L
Total Bilirubin 0.8
AST 21
ALT 16
Alkaline Phosphatase 125
Vital Signs:
max temp for 24 hours
08/28/23
21:36 08/30/23
03:12 08/30/23
06:30
Temp 98.4 F
Actual Weight 118 kg 115.014 kg
Vital Signs
Temp Pulse Resp BP Pulse Ox
98 F 85 18 123/57 97
08/30/23 11:16 08/30/23 11:16 08/30/23 11:16 08/30/23 11:16 08/30/23 11:16
I&O
08/29/23 08/30/23 08/31/23
06:59 06:59 06:59
Intake Total 960 / 960
Output Total 200 / 200 1300 / 1300 450 / 450
Balance -200 / -200 -340 / -340 -450 / -450
Review of Systems
-
All other systems: Reviewed and negative
Physical Exam
-
General: Well Developed, Well Nourished, No Apparent Distress and Morbidly Obese
HEENT: Normocephalic, Atraumatic and Oxygen
Respiratory: Wheezes (at bases)
Cardiac: Regular Rhythm and S1/S2; Negative Murmur
GI: Soft, Nontender, Nondistended and Normal Bowel Sounds
Musculoskeletal: Other (chronic thickened skin, venous stasis changes with weeping to right leg)
Neuro: Awake
[2023-08-30] MEDS: THERAGRAN 1 TABLET PO (12:57)
[2023-08-30] MEDS: ASPIR LOW (ENTERIC COATED) 81 MG PO (12:57)
--- NOTE | 2023-08-30 15:14 | W.PN.CARDCBS ---
Today's Communication / Plan
-
Continue diuresis efforts
Monitor renal function and electrolytes
Impression / Plan
-
PCP: Cris Avilez PA-C
Director Of Product Management: Dr. Ott
Impression:
Presented 08/28/2023 with progressively worsening shortness of breath, weight gain
Acute on chronic heart failure with mildly reduced ejection fraction, proBNP 11,300
ALMA
Right shoulder/arm pain
COVID-19 treated with Paxlovid and Decadron 07/27/2021 - 07/31/2023
Chronic hypoxic respiratory failure on home oxygen 1-2 L via NC
Chronic HFrEF (40-45%)
NonMI troponin elevation
Hypokalemia
Frequent PVCs and bigeminy
Asthma/COPD
Chronic Lymphedema and chronic venous stasis changes
Hypertension
HLD
DM II
MARIAMA
Peripheral Neuropathy
History of DVT
Morbid Obesity
Medication and dietary non-adherence
Echo 08/22/21:�LVEF 53%, mild LVH, Mild MR, Mild 20/10 PRECIOUS 1.7cm2, mild AI
Echo 03/24/22: Technically limited study and patient was scanned in a wheelchair. No regional wall motion abnormalities are seen. LV ejection fraction is 53% by Phan's biplane method�of discs. Mild left ventricular hypertrophy. Normal diastolic
function. Mild mitral regurgitation is seen. This may be underestimated due to acoustic shadowing. Mild aortic stenosis. Peak/mean gradients across the aortic valve 20/10 mmHg. Using an LVOT diameter�of 2.0 cm the aortic valve by the Continuity
equation is calculated at 1.7 cm2. Mild aortic regurgitation.
Echo 12/18/2022:�EF 40-45%, global hypokinesis, moderate cLVH, stage II diastolic dysfunction, mild MS, mild MR, severely dilated LA, moderate with peak/mean gradients 45/20 mmHg, PRECIOUS 1.2 cm2, mild AR, mild TR, estimated PAP 42 mmHg,
Echo 03/16/2023: EF 45-50%, moderate cLVH, global hypokinesis, mild MR, mild to moderate with peak/mean gradients 21/12 mmHg, mild TR, estimated PAP 30-35 mmHg
Plan:
Acute on chronic heart failure exacerbation with low normal ejection fraction
-proBNP 11,300
-Continue diuresis with IV Lasix 80 mg IV twice daily with metolazone 2.5 mg this morning
-Monitor renal function closely with diuresis, creatinine stable, 1.5
-Keep K greater than 4, mag greater than 2
-Historically, goal-directed medical therapy has been limited by patient preference as well as renal insufficiency
-Monitor telemetry.� Consider addition of low-dose beta-lucero however she has had bradycardia in the past
-She has declined Jardiance in the past
-Reported allergy to KAROLINA inhibitor�unsure of reaction.� Continue hydralazine and consider adding Imdur
-No need to repeat echocardiogram at this time
-TSH normal
Lymphedema, chronic venous stasis changes
-Lower extremity duplex negative for DVT; she has a history of a DVT October 2019
-Malodorous�Rocephin added for possible cellulitis
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
-Right arm/shoulder pain xray shows severe rotator cuff arthropathy with a high riding position of the humeral head. Plan for outpatient orthopedic consult
Progress Note - Director Of Product Management
Subjective
Date of Service: August 30, 2023
Seen and examined. No significant change since yesterday.
Objective
Labs:
08/30/23 06:42
08/30/23 06:42
Labs
Hgb 10.3 g/dL (12.0-16.0) L 08/30/23 06:42
Hct 30.8 % (37.0-47.0) L 08/30/23 06:42
Plt Count 359 10^3/uL (130-400) 08/30/23 06:42
Sodium 138 mmol/L (135-145) 08/30/23 06:42
Potassium 4.3 mmol/L (3.5-5.1) 08/30/23 06:42
BUN 62 mg/dl (7-17) H 08/30/23 06:42
Creatinine 1.5 mg/dL (0.6-1.0) H 08/30/23 06:42
Glucose 94 mg/dl (70-99) 08/30/23 06:42
Troponins
08/28/23
21:56
Troponin I 0.025
Vital Signs and I&O:
Vital Signs
Temp Pulse Resp BP Pulse Ox
98 F 85 18 123/57 97
08/30/23 11:16 08/30/23 11:16 08/30/23 11:16 08/30/23 11:16 08/30/23 11:16
Vital Signs
Temp Pulse Resp BP Pulse Ox
98 F 85 18 123/57 97
08/30/23 11:16 08/30/23 11:16 08/30/23 11:16 08/30/23 11:16 08/30/23 11:16
Intake & Output
08/28/23 08/29/23 08/30/23 08/31/23
06:59 06:59 06:59 06:59
Intake Total 960 / 960
Output Total 200 / 200 1300 / 1300 450 / 450
Balance -200 / -200 -340 / -340 -450 / -450
Physical Exam
Physical Exam
GEN: Chronically ill 77-year-old female who appears older than her stated age
HEENT: Nasal cannula O2.� Mucous membranes moist
LUNGS:faint expiratory wheezing with decreased breath sounds bilaterally, crackles at bases
CV: Regular with ectopy.� Positive S1-S2.� 2/6 systolic murmur
ABD: Obese, nontender.� Positive bowel sounds
EXT: +2 edema with malodor, thickened skin folds, hyperpigmentation, chronic venous stasis
[2023-08-30 15:41] VITALS: BP 127/61
[2023-08-30] MEDS: STERILE WATER FOR INJECTION 10 ML IV (16:57)
[2023-08-30] MEDS: ROCEPHIN 1000 MG IV (16:57)
[2023-08-30 19:00] VITALS: BP 120/56
[2023-08-30] MEDS: TYLENOL 650 MG PO (20:40)
[2023-08-30] MEDS: LIPITOR 20 MG PO (21:39)
[2023-08-30 23:25] VITALS: BP 122/50
[2023-08-31 03:05] VITALS: BP 147/54
[2023-08-31 06:00] VITALS: BMI 44.4
[2023-08-31 06:50] LABS: % Basophils 0.1 % (0-2); % Immature Granulocytes 0.5 % (0-0.5); % Lymphocytes 3.1 % (20.5-51.1); % Monocytes 9.8 % (1.7-9.3); % Neutrophils 83.5 % (42.2-75.2); Absolute Eosinophils 0.2 10^3/uL (0-0.7); Absolute Lymphocytes 0.2 10^3/uL (1.2-3.4); Absolute Monocytes 0.7 10^3/uL (0.1-0.6); Absolute Neutrophils 6.2 10^3/uL (1.4-6.5); Hematocrit 32.5 % (37.0-47.0); Hemoglobin 10.6 g/dL (12.0-16.0); Mean Corp Hgb Conc. 32.6 g/dL (33.0-37.0); Mean Corpuscular Hgb 27.7 pg (27.0-31.0); Mean Corpuscular Volume 84.9 fL (81.0-99.0); Mean Platelet Volume 9.1 fL (7.4-10.4); Nucleated Red Blood Cells % 0 %; Platelet Count 336 10^3/uL (130-400); Red Blood Cell Count 3.83 10^6/uL (4.20-5.40); Red Cell Dist. Width 16.7 % (11.5-14.5); White Blood Cell Count 7.4 10^3/uL (4.8-10.8)
[2023-08-31 07:00] VITALS: BP 128/52
[2023-08-31 07:13] LABS: ALT (SGPT) 13 U/L (0-35); AST (SGOT) 18 U/L (14-36); Albumin 2.7 g/dl (3.5-5.0); Alkaline Phosphatase 100 U/L (38-126); Blood Urea Nitrogen 66 mg/dl (7-17); Calcium 8.1 mg/dl (8.4-10.2); Carbon Dioxide 29 mmol/L (22-30); Chloride 101 mmol/L (98-107); Estimated Creatinine Clearance 38 ml/min; Glucose 103 mg/dl (70-99); Magnesium 2.5 mg/dl (1.6-2.3); Potassium 3.7 mmol/L (3.5-5.1); Sodium 139 mmol/L (135-145); Total Bilirubin 0.8 mg/dl (0.2-1.3); Total Protein 6.7 g/dl (6.3-8.2); eGFR 35.23
[2023-08-31] MEDS: APRESOLINE 50 MG PO ×2 (08:47→20:57)
[2023-08-31] MEDS: LASIX 80 MG IV ×2 (08:47→15:18)
[2023-08-31] MEDS: HEPARIN 5000 UNITS SC ×2 (08:48→20:57)
[2023-08-31] MEDS: DESENEX/MITRAZOL/ZEASORB 1 APPLIC TOPICAL ×2 (08:49→20:57)
[2023-08-31 10:16] VITALS: BMI 44.4
[2023-08-31 11:00] VITALS: BP 138/67
[2023-08-31] MEDS: ASPIR LOW (ENTERIC COATED) 81 MG PO (11:25)
[2023-08-31] MEDS: THERAGRAN 1 TABLET PO (11:25)
--- NOTE | 2023-08-31 12:15 | W.PN.CARDCBS ---
Today's Communication / Plan
-
Continue furosemide 80 mg IV twice daily
Metolazone 5 mg p.o. x 1 today
Likelihood of good long-term control of HFmrEF is low.
Impression / Plan
-
PCP: Cris Avilez PA-C
Field Support Specialist: Dr. Ott
Impression:
Presented 08/28/2023 with progressively worsening shortness of breath, weight gain
Acute on chronic heart failure with mildly reduced ejection fraction, proBNP 11,300
ALMA
Right shoulder/arm pain
COVID-19 treated with Paxlovid and Decadron 07/27/2021 - 07/31/2023
Chronic hypoxic respiratory failure on home oxygen 1-2 L via NC
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
NonMI troponin elevation
Hypokalemia
Frequent PVCs and bigeminy
Asthma/COPD
Chronic Lymphedema and chronic venous stasis changes
Hypertension
HLD
DM II
MARIAMA
Peripheral Neuropathy
History of DVT
Morbid Obesity
Medication and dietary non-adherence
Echo 08/22/21:�LVEF 53%, mild LVH, Mild MR, Mild 20/10 PRECIOUS 1.7cm2, mild AI
Echo 03/24/22: Technically limited study and patient was scanned in a wheelchair. No regional wall motion abnormalities are seen. LV ejection fraction is 53% by Phan's biplane method�of discs. Mild left ventricular hypertrophy. Normal diastolic
function. Mild mitral regurgitation is seen. This may be underestimated due to acoustic shadowing. Mild aortic stenosis. Peak/mean gradients across the aortic valve 20/10 mmHg. Using an LVOT diameter�of 2.0 cm the aortic valve by the Continuity
equation is calculated at 1.7 cm2. Mild aortic regurgitation.
Echo 12/18/2022:�EF 40-45%, global hypokinesis, moderate cLVH, stage II diastolic dysfunction, mild MS, mild MR, severely dilated LA, moderate with peak/mean gradients 45/20 mmHg, PRECIOUS 1.2 cm2, mild AR, mild TR, estimated PAP 42 mmHg,
Echo 03/16/2023: EF 45-50%, moderate cLVH, global hypokinesis, mild MR, mild to moderate with peak/mean gradients 21/12 mmHg, mild TR, estimated PAP 30-35 mmHg
Plan:
She remains with massive right heart failure and lymphedema. Her left heart failure is improved but she is still symptomatic with dyspnea at rest and on oxygen. Indication for beta-lucero is not clear.
Continue IV furosemide 80 mg twice daily. Will add metolazone 5 mg with afternoon dose. Probably best to avoid SGLT2 antagonists given likelihood of urinary infection and patient has apparently refused in the past.
Heart rhythm is somewhat chaotic but acceptable. Given CKD, would not add spironolactone. Lisinopril is listed as an allergy. Patient not currently on beta-lucero.
Defer to hospitalist for wound care of lower extremities. Patient now on ceftriaxone.
Aortic stenosis stable, suspect has not progressed substantially since February 2023 echo
Progress Note - Field Support Specialist
Subjective
Date of Service: August 31, 2023:
Still with dyspnea. She says that she drives, can get around with some difficulty in her home with a walker, lives with son and [id number].
Allergies: Albuterol, cephalosporins, Levaquin, lisinopril, nonsteroidals
Outpatient medications: Aspirin 81 mg a day, atorvastatin 20 mg a day, furosemide 80 mg a day, hydralazine 50 mg twice daily, Xopenex, metolazone 2.5 mg once per week, potassium 20 mill equivalents with metolazone, Repaglinide
Current meds subcu heparin, hydralazine 50 mg twice daily, atorvastatin 20 mg a day, furosemide 80 mg IV twice daily with toes on yesterday, aspirin 81 mg a day, ceftriaxone,
PMH/PSH/SH/FH: Reviewed
ROS: Negative except as above
Hemoglobin 10.6, BUN/creatinine 66 and 1.5, stable, CO2 is 29, proBNP was 11,300, had been 7630 in [place], as high as 26,700, peak troponin 0.025
ECG: Sinus rhythm, PVCs bigeminy, left axis deviation, IVCD, probable LVH, possible anterior NE
Chest x-ray cardiomegaly, vascular congestion, possible infiltrate left base
Objective
Labs:
08/31/23 06:07
08/31/23 06:07
Labs
Hgb 10.6 g/dL (12.0-16.0) L 08/31/23 06:07
Hct 32.5 % (37.0-47.0) L 08/31/23 06:07
Plt Count 336 10^3/uL (130-400) 08/31/23 06:07
Sodium 139 mmol/L (135-145) 08/31/23 06:07
Potassium 3.7 mmol/L (3.5-5.1) 08/31/23 06:07
BUN 66 mg/dl (7-17) H 08/31/23 06:07
Creatinine 1.5 mg/dL (0.6-1.0) H 08/31/23 06:07
Glucose 103 mg/dl (70-99) H 08/31/23 06:07
Troponins
08/28/23
21:56
Troponin I 0.025
Vital Signs and I&O:
Vital Signs
Temp Pulse Resp BP Pulse Ox
36.9 C 55 19 138/67 97
08/31/23 11:00 08/31/23 11:00 08/31/23 11:00 08/31/23 11:00 08/31/23 11:00
Vital Signs
Temp Pulse Resp BP Pulse Ox
36.9 C 55 19 138/67 97
08/31/23 11:00 08/31/23 11:00 08/31/23 11:00 08/31/23 11:00 08/31/23 11:00
Intake & Output
08/29/23 08/30/23 08/31/2324
07:59 07:59 07:59 07:59
Intake Total 960 / 960 120 / 120
Output Total 200 / 200 1300 / 1300 1550 / 1550
Balance -200 / -200 -340 / -340 -1430 / -1430
Physical Exam
Physical Exam
138/67, pulse 50s, respiratory pain, weight is 309087.4 kg, unchanged, 119 kg admission
Morbidly obese, some respiratory distress, mild, few crackles/rhonchi, irregular rate and rhythm with AAS murmur, JVD difficult to assess, large pannus, massive lymphedema with chronic stasis changes, wrapped in Pedro, did not attempt to palpate
pulses
--- NOTE | 2023-08-31 12:22 | W.PN.HOSP.TC ---
Today's Communication/Plan
-
Consult wound care
Continue diuresis
Assessment / Plan
Assessment / Plan
Gen-AAOx3, NAD, morbid obesity
HEENT-NC, AT, anicteric, clear oral mm
Neck-supple
CV-reg, no M, +S1/S2
Lungs-clear B/L
Abd-soft, NT, ND
Ext-severe bilateral lower extremity lymphedema with erythema
Musculoskeletal-no cyanosis, clubbing
Skin-warm and dry
Neuro-grossly non-focal
Psych-calm, cooperative
Acute on chronic systolic CHF with cardiomyopathy and Chronic hypoxic respiratory failure on chronic 2 L nasal cannula--cont diuresis, daily weights, I/Os--BNP 86538--Xzzikb 2D echo EF 40-45%--cont BID IV lasix-- metolazone 2.5 mg as per cards.
Weight has plateaued at 115 kg.
Lower extremity wounds/skin and soft tissue infection -wound culture shows gram-negative bacilli. Currently on IV Rocephin. Consult wound care.
Chronic bilateral lower extremity lymphedema -follow-up with the wound care clinic. Discussed with patient.
ALMA on CKD stage 3B-- due to possible cardiorenal--Creat 1.6 was 1.2 on 07/31/2023--Follow BMP given need for diuresis. Renal function stable so far.
Right shoulder severe rotator cuff arthropathy--x-ray of the right shoulder reviewed--will need outpt ortho f/u.
Essential HTN--Continue hydralazine 50 mg twice daily
DM 2 without hyperglycemia -Continue repaglinide 0.5 mg twice daily blood sugar in the 150. Hemoglobin A1c 6.1% in June. She is on as needed repaglinide at home.
Hyperlipidemia -May continue atorvastatin 20 mg at bedtime
Asthma-no acute exacerbation
Obstructive sleep apnea--Stopped using CPAP several years ago
Right lower extremity DVT October 2019
Morbid obesity due to excess calorie consumption
Weight loss recommended, 1800 diet, fluid restrict
Other PMH:
bilateral buttocks healing stage II pressure ulcer on prior admit--bilateral posterior thighs healing stage II ulcer on prior admit--Consult wound care
DVT prophylaxis--Subcu heparin
Code status Full code
Dispo -will need SNF on discharge.
Anticipated Discharge: > 48 hours
Subjective/Interval History
-
Date of Service: August 31, 2023
Patient seen and examined. No complaints.
Objective Data
-
Labs:
Laboratory Results
08/31/23
06:07
WBC 7.4
Hgb 10.6 L
Hct 32.5 L
Plt Count 336
Sodium 139
Potassium 3.7
Chloride 101
Carbon Dioxide 29
BUN 66 H
Creatinine 1.5 H
Glucose 103 H
Calcium 8.1 L
Total Bilirubin 0.8
AST 18
ALT 13
Alkaline Phosphatase 100
Vital Signs:
Vital Signs
Temp Pulse Resp BP Pulse Ox
98.5 F 55 19 138/67 97
08/31/23 11:00 08/31/23 11:00 08/31/23 11:00 08/31/23 11:00 08/31/23 11:00
I&O
08/30/23 08/31/23 09/01/23
06:59 06:59 06:59
Intake Total 960 / 960 120 / 120
Output Total 1300 / 1300 1550 / 1550
Balance -340 / -340 -1430 / -1430
Review of Systems
-
History Source: Patient
All other systems: Reviewed and negative
--- NOTE | 2023-08-31 13:04 | CM ---
Reviewed chart, OT/PT stating that patient would be a good candidate for SNF as she is deconditioned. Met with patient to discuss indication. Patient stated that she does not want to go to a SNF. She stated that her son and daughter are home with
her and she is rarely left alone. Will have to confirm with them prior to her return home that they can handle the scope of her needs. She declined VN services.
Plan: Case management will continue to follow and assist with discharge planning. Tentative home.
[2023-08-31 15:00] VITALS: BP 128/53
--- NOTE | 2023-08-31 16:05 | WOUNDNOTE ---
WON RN NOTE ADDENDUM: + Pedal pulses audible with Doppler, applied A&D ointment today, mineral oil already on order to start tomorrow. Vascular ultrasound negative for DVT. Applied KAROLINA wraps knee high with assist from nurse Aguirre. Will confirm the
above with hospitalist.
--- NOTE | 2023-08-31 16:06 | WOUNDNOTE ---
R MEDIAL LOWER ANKLE
--- NOTE | 2023-08-31 16:06 | WOUNDNOTE ---
L LATERAL LOWER LEG AND HEEL
--- NOTE | 2023-08-31 16:08 | WOUNDNOTE ---
L MEDIAL LOWER LEG
--- NOTE | 2023-08-31 16:09 | WOUNDNOTE ---
R LOWER LATERAL LEG
--- NOTE | 2023-08-31 16:10 | WOUNDNOTE ---
L POSTERIOR LOWER LEG
--- NOTE | 2023-08-31 16:13 | WOUNDNOTE ---
WON RN note: Patient admitted with pneumonia and CHF.
See H&P for complete history. Patient lives with family and states she's current with VN.
PMH: CHF, aortic stenosis, HTN, chronic lymphedema, RLE DVT 10/2019, venous insufficiency, asthma, DM, anemia, sleep apnea, obesity, pulmonary HTN, CKD3a, benign R thigh skin lesion excision, Buttocks with stage 2 PI's, MASD in skin folds and
diabetic toe ulcers.
Wound Location and type/assessment: Known to service from previous admissions, last seen 07/28/23. Patient admitted with worsening stage 2 PI on buttocks. MASD in skin folds, fungal powder in use. Legs +LE hemosiderosis with chronic dark discolored
legs and lymphedema. Legs worse compared to last seen, R leg with medial ankle patch of weeping skin, venous, foul odor. L posterior leg with pink open venous ulcer. L lateral heel with open partial thickness wound, suspect from tape pulling skin
rather than pressure. Has compression stockings(Farrow wraps) and lymphedema pumps at home that family has to help her to use. Blanchable red heels. RN Carla assisted with turning/repositioning, patient unable to assist and gets easily short of
breath with exertion.
Appetite: good.
Pressure redistribution devices in place: [employer] called housekeeping for air mattress. Air chair cushion in use, pillows under calves. Nurse made aware of bed switch and will change bed when able.
Plan: Silicone foams applied to buttocks, Skin folds continue with fungal powder. Will order mineral oil for dry skin on legs and Dakin's WTD for R leg wound. L leg with adaptic, abd pad and kerlix. Foams applied to heels. Will confirm orders with
hospitalist and updated nurse. Care plan to be updated and will follow as needed.
[2023-08-31] MEDS: STERILE WATER FOR INJECTION 10 ML IV (18:07)
[2023-08-31] MEDS: ROCEPHIN 1000 MG IV (18:07)
[2023-08-31 19:05] VITALS: BP 125/60
[2023-08-31] MEDS: LIPITOR 20 MG PO (20:59)
[2023-08-31 23:10] VITALS: BP 120/62
[2023-09-01 03:05] VITALS: BP 135/53
[2023-09-01 06:00] VITALS: BMI 46.9
[2023-09-01 07:21] LABS: Blood Urea Nitrogen 60 mg/dl (7-17); Calcium 7.8 mg/dl (8.4-10.2); Carbon Dioxide 31 mmol/L (22-30); Chloride 101 mmol/L (98-107); Estimated Creatinine Clearance 36 ml/min; Glucose 94 mg/dl (70-99); Potassium 3.5 mmol/L (3.5-5.1); Sodium 136 mmol/L (135-145)
--- NOTE | 2023-09-01 07:29 | PTCARENOTE ---
upon entering pts room to obtain daily weight, pt asked RN if she had a rash d/t feeling itchy. RN inspected pts skin, red warm rash seen on pts back, inner thighs. new findings on pt to prior skin assessment at 1900. pt stated she believes rash
started last night. passed off to dayshift RN d/t timing of rash discovery.
[2023-09-01 07:55] VITALS: BP 142/60
[2023-09-01] MEDS: APRESOLINE 50 MG PO ×2 (08:06→20:40)
[2023-09-01] MEDS: HEPARIN 5000 UNITS SC ×2 (08:07→20:39)
[2023-09-01] MEDS: LASIX 80 MG IV ×2 (08:09→16:38)
[2023-09-01] MEDS: DESENEX/MITRAZOL/ZEASORB 1 APPLIC TOPICAL ×2 (08:10→20:40)
[2023-09-01] MEDS: HYDROPHOR 1 APPLIC TOPICAL (08:10)
[2023-09-01] MEDS: DAKIN'S SOLUTION 0.125% 1/4 STRENGTH 473 ML TOPICAL (08:11)
[2023-09-01] MEDS: TYLENOL 650 MG PO (09:56)
[2023-09-01 10:16] VITALS: BMI 46.9
--- NOTE | 2023-09-01 10:42 | W.PN.HOSP.TC ---
Today's Communication/Plan
-
Stop ceftriaxone
Add Claritin
Continue diuresis
Replete potassium
Resume Advair
Assessment / Plan
Assessment / Plan
Gen-AAOx3, NAD, morbid obesity
HEENT-NC, AT, anicteric, clear oral mm
Neck-supple
CV-reg, no M, +S1/S2
Lungs-clear B/L
Abd-soft, NT, ND
Ext-severe bilateral lower extremity lymphedema with erythema
Musculoskeletal-no cyanosis, clubbing
Skin-warm and dry, diffuse maculopapular rash primarily on her back, also on her arms
Neuro-grossly non-focal
Psych-calm, cooperative
Drug rash - suspect due to ceftriaxone. Now discontinued.
Acute on chronic systolic CHF with cardiomyopathy and Chronic hypoxic respiratory failure on chronic 2 L nasal cannula--cont diuresis, daily weights, I/Os--BNP 22487--Cqgaso 2D echo EF 40-45%--cont BID IV lasix-- metolazone 2.5 mg as per cards.
Weight today 121 kg, I question the accuracy. Asked nurse to repeat.
Lower extremity wounds/skin and soft tissue infection -wound culture shows Citrobacter. At this point I will stop further antibiotics given her drug rash. Appreciate wound nurse input. The wounds do not clinically look infected. I question the
culture results as a possible colonization. No systemic signs or symptoms of infection.
Chronic bilateral lower extremity lymphedema -follow-up with the wound care clinic. Discussed with patient.
ALMA on CKD stage 3B-- due to possible cardiorenal--Creat 1.6 was 1.2 on 07/31/2023--Follow BMP given need for diuresis. Renal function stable so far.
Right shoulder severe rotator cuff arthropathy--x-ray of the right shoulder reviewed--will need outpt ortho f/u.
Essential HTN--Continue hydralazine 50 mg twice daily
DM 2 without hyperglycemia -Continue repaglinide 0.5 mg twice daily blood sugar in the 150. Glucose 94 this morning. Hemoglobin A1c 6.1% in June. She is on as needed repaglinide at home.
Hyperlipidemia -May continue atorvastatin 20 mg at bedtime
Asthma, mild persistent -resume Advair. Continue as needed levalbuterol. She states she is allergic to albuterol.
Obstructive sleep apnea--Stopped using CPAP several years ago
Right lower extremity DVT October 2019
Morbid obesity due to excess calorie consumption -Weight loss recommended, 1800 diet, fluid restrict
Other PMH:
bilateral buttocks healing stage II pressure ulcer on prior admit--bilateral posterior thighs healing stage II ulcer on prior admit--Consult wound care
DVT prophylaxis--Subcu heparin
Code status Full code
Dispo -will need SNF on discharge.
Anticipated Discharge: > 48 hours
Subjective/Interval History
-
Date of Service: September 01, 2023
Patient seen and examined. Complaining of rash on her skin, itching.
Objective Data
-
Labs:
Laboratory Results
09/01/23
06:23
Sodium 136
Potassium 3.5
Chloride 101
Carbon Dioxide 31 H
BUN 60 H
Creatinine 1.6 H
Glucose 94
Calcium 7.8 L
Vital Signs:
Vital Signs
Temp Pulse Resp BP Pulse Ox
97.8 F 63 16 142/60 97
09/01/23 07:55 09/01/23 07:55 09/01/23 07:55 09/01/23 07:55 09/01/23 08:00
I&O
08/31/23 09/01/23 09/02/23
06:59 06:59 06:59
Intake Total 120 / 120 900 / 900
Output Total 1550 / 1550 800 / 800
Balance -1430 / -1430 100 / 100
Review of Systems
-
History Source: Patient
All other systems: Reviewed and negative
--- NOTE | 2023-09-01 11:05 | W.PN.CARDCBS ---
Today's Communication / Plan
-
Cont IV diuresis
Add metolazone
Replete lytes
Add low dose Toprol XL given mildly reduced EF and frequent ectopy
Impression / Plan
-
PCP: Cris Avilez PA-C
Detective Automobile Section: Dr. Ott
Impression:
Presented 08/28/2023 with progressively worsening shortness of breath, weight gain
Acute on chronic heart failure with mildly reduced ejection fraction, proBNP 11,300
ALMA
Right shoulder/arm pain
COVID-19 treated with Paxlovid and Decadron 07/27/2021 - 07/31/2023
Chronic hypoxic respiratory failure on home oxygen 1-2 L via NC
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
NonMI troponin elevation
Hypokalemia
Frequent PVCs and bigeminy
Asthma/COPD
Chronic Lymphedema and chronic venous stasis changes
Hypertension
HLD
DM II
MARIAMA
Peripheral Neuropathy
History of DVT
Morbid Obesity
Medication and dietary non-adherence
Echo 08/22/21:�LVEF 53%, mild LVH, Mild MR, Mild 20/10 PRECIOUS 1.7cm2, mild AI
Echo 03/24/22: Technically limited study and patient was scanned in a wheelchair. No regional wall motion abnormalities are seen. LV ejection fraction is 53% by Phan's biplane method�of discs. Mild left ventricular hypertrophy. Normal diastolic
function. Mild mitral regurgitation is seen. This may be underestimated due to acoustic shadowing. Mild aortic stenosis. Peak/mean gradients across the aortic valve 20/10 mmHg. Using an LVOT diameter�of 2.0 cm the aortic valve by the Continuity
equation is calculated at 1.7 cm2. Mild aortic regurgitation.
Echo 12/18/2022:�EF 40-45%, global hypokinesis, moderate cLVH, stage II diastolic dysfunction, mild MS, mild MR, severely dilated LA, moderate with peak/mean gradients 45/20 mmHg, PRECIOUS 1.2 cm2, mild AR, mild TR, estimated PAP 42 mmHg,
Echo 03/16/2023: EF 45-50%, moderate cLVH, global hypokinesis, mild MR, mild to moderate with peak/mean gradients 21/12 mmHg, mild TR, estimated PAP 30-35 mmHg
Plan:
-Remains significantly volume overloaded on exam
-Continue IV furosemide 80 mg twice daily
-Will give an additional dose of metolazone 5 mg this afternoon
-Avoiding SGLT2 antagonists given likelihood of urinary infection and patient has apparently refused in the past
-Given CKD, would not add spironolactone
-Given frequent ectopy would replete electrolytes
-Add low dose BB
-Defer to hospitalist for wound care of lower extremities. Patient now on ceftriaxone.
Progress Note - Detective Automobile Section
Subjective
Date of Service: September 01, 2023
Reporting SOB she feels is a 'panic attack.' No chest pain or palpitations. Developed a rash on her upper body.
Objective
Labs:
08/31/23 06:07
09/01/23 06:23
Labs
Hgb 10.6 g/dL (12.0-16.0) L 08/31/23 06:07
Hct 32.5 % (37.0-47.0) L 08/31/23 06:07
Plt Count 336 10^3/uL (130-400) 08/31/23 06:07
Sodium 136 mmol/L (135-145) 09/01/23 06:23
Potassium 3.5 mmol/L (3.5-5.1) 09/01/23 06:23
BUN 60 mg/dl (7-17) H 09/01/23 06:23
Creatinine 1.6 mg/dL (0.6-1.0) H 09/01/23 06:23
Glucose 94 mg/dl (70-99) 09/01/23 06:23
Vital Signs and I&O:
Vital Signs
Temp Pulse Resp BP Pulse Ox
97.8 F 63 16 142/60 97
09/01/23 07:55 09/01/23 07:55 09/01/23 07:55 09/01/23 07:55 09/01/23 08:00
Vital Signs
Temp Pulse Resp BP Pulse Ox
97.8 F 63 16 142/60 97
09/01/23 07:55 09/01/23 07:55 09/01/23 07:55 09/01/23 07:55 09/01/23 08:00
Intake & Output
08/30/23 08/31/23 09/01/23 09/02/23
06:59 06:59 06:59 06:59
Intake Total 960 / 960 120 / 120 900 / 900
Output Total 1300 / 1300 1550 / 1550 800 / 800
Balance -340 / -340 -1430 / -1430 100 / 100
Physical Exam
Physical Exam
Gen: NAD, AA
HEENT: NC/AT, sclera anicteric
Neck: No JVD
CV: RRR, NL s1/s2
Lungs: Tachypneic on 3L NC
Abd: S/ND
Ext: Nonpitting LE edema with overlying brawny skin changes
Skin: Warm, dry
Neuro: Non-focal
[2023-09-01] MEDS: ADVAIR HFA 115/21 MCG INHALER 2 PUFF INH ×2 (11:23→19:31)
[2023-09-01 11:27] VITALS: BP 119/54; PULSE 70; O2SAT 97
[2023-09-01] MEDS: ASPIR LOW (ENTERIC COATED) 81 MG PO (11:27)
[2023-09-01] MEDS: CLARITIN 10 MG PO (11:27)
[2023-09-01] MEDS: THERAGRAN 1 TABLET PO (11:28)
[2023-09-01] MEDS: MIRALAX PO (11:31)
[2023-09-01] MEDS: TOPROL XL 12.5 MG PO (11:34)
[2023-09-01] MEDS: ZAROXOLYN 5 MG PO (11:34)
[2023-09-01 15:00] VITALS: BP 137/55
[2023-09-01 19:15] VITALS: BP 117/67
[2023-09-01] MEDS: COLACE PO (20:41)
[2023-09-01] MEDS: LIPITOR 20 MG PO (21:58)
[2023-09-01 23:10] VITALS: BP 112/50
[2023-09-02] VITALS (7 sets, daily range): BP systolic 112–125; BP diastolic 50–71; PULSE 87; O2SAT 93; BMI 46.5
[2023-09-02] MEDS: ADVAIR HFA 115/21 MCG INHALER 2 PUFF INH ×2 (08:05→20:46)
[2023-09-02] MEDS: HEPARIN 5000 UNITS SC ×2 (09:21→21:12)
[2023-09-02] MEDS: LASIX 80 MG IV ×2 (09:22→17:58)
[2023-09-02] MEDS: TOPROL XL 12.5 MG PO (09:22)
[2023-09-02] MEDS: APRESOLINE 50 MG PO ×2 (09:22→21:13)
[2023-09-02] MEDS: CLARITIN 10 MG PO (09:22)
--- NOTE | 2023-09-02 09:31 | W.PN.HOSP.TC ---
Today's Communication/Plan
-
Prednisone
Liberalize fluids to 48 ounces daily
Assessment / Plan
Assessment / Plan
Gen-AAOx3, NAD, morbid obesity
HEENT-NC, AT, anicteric, clear oral mm
Neck-supple
CV-reg, no M, +S1/S2
Lungs-clear B/L
Abd-soft, NT, ND
Ext-severe bilateral lower extremity lymphedema with erythema
Musculoskeletal-no cyanosis, clubbing
Skin-warm and dry, diffuse maculopapular rash primarily on her back, also on her arms
Neuro-grossly non-focal
Psych-calm, cooperative
Drug rash - suspect due to ceftriaxone. Now discontinued. Continue Claritin. Give a dose of prednisone.
Acute on chronic systolic CHF with cardiomyopathy and Chronic hypoxic respiratory failure on chronic 2 L nasal cannula--cont diuresis, daily weights, I/Os--BNP 82185--Dnoobq 2D echo EF 40-45%--cont BID IV lasix-- metolazone 2.5 mg as per cards.
Weight today 120 kg, I question the accuracy. Patient requesting liberalization of her fluid restriction from 40 to 48 ounces daily due to dry mouth.
Lower extremity wounds/skin and soft tissue infection -wound culture shows Citrobacter. At this point I will stop further antibiotics given her drug rash. Appreciate wound nurse input. The wounds do not clinically look infected. I question the
culture results as a possible colonization. No systemic signs or symptoms of infection.
Chronic bilateral lower extremity lymphedema -follow-up with the wound care clinic. Discussed with patient.
ALMA on CKD stage 3B-- due to possible cardiorenal--Creat 1.6 was 1.2 on 07/31/2023--Follow BMP given need for diuresis. Renal function stable so far.
Right shoulder severe rotator cuff arthropathy--x-ray of the right shoulder reviewed--will need outpt ortho f/u.
Essential HTN--Continue hydralazine 50 mg twice daily
DM 2 without hyperglycemia -Continue repaglinide 0.5 mg twice daily blood sugar in the 150. Glucose 94 this morning. Hemoglobin A1c 6.1% in June. She is on as needed repaglinide at home.
Hyperlipidemia -May continue atorvastatin 20 mg at bedtime
Asthma, mild persistent -resume Advair. Continue as needed levalbuterol. She states she is allergic to albuterol.
Obstructive sleep apnea--Stopped using CPAP several years ago
Right lower extremity DVT October 2019
Morbid obesity due to excess calorie consumption -Weight loss recommended, 1800 diet, fluid restrict
Other PMH:
bilateral buttocks healing stage II pressure ulcer on prior admit--bilateral posterior thighs healing stage II ulcer on prior admit--Consult wound care
DVT prophylaxis--Subcu heparin
Code status Full code
Dispo -will need SNF on discharge.
Anticipated Discharge: 24 - 48 hours
Subjective/Interval History
-
Date of Service: September 02, 2023
Patient seen and examined. Complaining of dry lips and mouth. Complaining of rash.
Objective Data
-
Labs:
Laboratory Results
09/02/23
08:26
Sodium Pending
Potassium Pending
Chloride Pending
Carbon Dioxide Pending
BUN Pending
Creatinine Pending
Glucose Pending
Calcium Pending
Vital Signs:
Vital Signs
Temp Pulse Resp BP Pulse Ox
97.9 F 64 16 125/71 96
09/02/23 07:00 09/02/23 08:09 09/02/23 08:09 09/02/23 07:00 09/02/23 08:09
I&O
09/01/23 09/02/23 09/03/23
06:59 06:59 06:59
Intake Total 900 / 900 730 / 730
Output Total 800 / 800 550 / 550
Balance 100 / 100 180 / 180
Review of Systems
-
History Source: Patient
All other systems: Reviewed and negative
[2023-09-02] MEDS: COLACE PO (09:48)
[2023-09-02] MEDS: DELTASONE 40 MG PO (09:48)
[2023-09-02] MEDS: MIRALAX PO (09:48)
[2023-09-02 10:37] LABS: Blood Urea Nitrogen 57 mg/dl (7-17); Calcium 7.7 mg/dl (8.4-10.2); Carbon Dioxide 31 mmol/L (22-30); Chloride 97 mmol/L (98-107); Estimated Creatinine Clearance 34 ml/min; Glucose 77 mg/dl (70-99); Potassium 3.5 mmol/L (3.5-5.1); Sodium 136 mmol/L (135-145); eGFR 30.32
[2023-09-02] MEDS: THERAGRAN 1 TABLET PO (11:28)
[2023-09-02] MEDS: ASPIR LOW (ENTERIC COATED) 81 MG PO (11:28)
[2023-09-02] MEDS: TYLENOL 650 MG PO (11:29)
--- NOTE | 2023-09-02 11:34 | CM ---
Reviewed chart, indication on behalf of PT/OT and attending is for patient to go to a SNF. Placed a call to patient's daughter, Mariam, who was advised that patient does not want to go to a SNF, however her PT/OT is concerning for home. She stated
that she will talk to patient and if patient is still insistent on coming home, she will take time off of work and ask her brother to do the same so that she has an assist of 2 for all ADLs and personal care. Reviewed PT/OT and how much care she
requires. Patient's daughter stated that she will talk to patient and try to convince her that for safety reasons, SNF would be the best environment for her.
Will f/u with patient's daughter to determine plan.
Plan: Case management will continue to follow and assist with discharge planning. Patient needs SNF placement, family trying to convince her.
--- NOTE | 2023-09-02 13:50 | W.PN.CARDCBS ---
Addendum entered and electronically signed by Enoc Arredondo MD 09/02/23 17:58:
I saw and examined the patient.
The Page Makeup System Operator's note was reviewed and I agree with the note.
Comment: 77-year-old woman past medical history of heart failure with mildly reduced ejection fraction presenting in decompensated heart failure
Volume status is difficult to assess but she still appears to have significant peripheral edema and weight is elevated above prior baseline
Would continue with IV diuresis twice daily
Hold off on metolazone today given rising creatinine
Continue to follow renal function, electrolytes and daily weights
Original Note:
Today's Communication / Plan
-
continue IV lasix
hold off on metolazone today
replete K. check mag
Impression / Plan
-
PCP: Cris Avilez PA-C
Aeronautical Design Engineer: Dr. Ott
Impression:
Presented 08/28/2023 with progressively worsening shortness of breath, weight gain
Acute on chronic heart failure with mildly reduced ejection fraction, proBNP 11,300
ALMA
Right shoulder/arm pain
COVID-19 treated with Paxlovid and Decadron 07/27/2021 - 07/31/2023
Chronic hypoxic respiratory failure on home oxygen 1-2 L via NC
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
NonMI troponin elevation
Hypokalemia
Frequent PVCs and bigeminy
Asthma/COPD
Chronic Lymphedema and chronic venous stasis changes
Hypertension
HLD
DM II
MARIAMA
Peripheral Neuropathy
History of DVT
Morbid Obesity
Medication and dietary non-adherence
Echo 08/22/21:�LVEF 53%, mild LVH, Mild MR, Mild 20/10 PRECIOUS 1.7cm2, mild AI
Echo 03/24/22: Technically limited study and patient was scanned in a wheelchair. No regional wall motion abnormalities are seen. LV ejection fraction is 53% by Phan's biplane method�of discs. Mild left ventricular hypertrophy. Normal diastolic
function. Mild mitral regurgitation is seen. This may be underestimated due to acoustic shadowing. Mild aortic stenosis. Peak/mean gradients across the aortic valve 20/10 mmHg. Using an LVOT diameter�of 2.0 cm the aortic valve by the Continuity
equation is calculated at 1.7 cm2. Mild aortic regurgitation.
Echo 12/18/2022:�EF 40-45%, global hypokinesis, moderate cLVH, stage II diastolic dysfunction, mild MS, mild MR, severely dilated LA, moderate with peak/mean gradients 45/20 mmHg, PRECIOUS 1.2 cm2, mild AR, mild TR, estimated PAP 42 mmHg,
Echo 03/16/2023: EF 45-50%, moderate cLVH, global hypokinesis, mild MR, mild to moderate with peak/mean gradients 21/12 mmHg, mild TR, estimated PAP 30-35 mmHg
Plan:
-Will continue IV Lasix 80 mg twice daily. Creatinine trending up slightly over the last 48 hours, 1.7 on 09/01. Will hold on giving dose of metolazone today. Dry weight unknown
-continue supp O2, wean as able
-with significant ectopy (frequent PVCs, bigeminy, PACs, brief atach) upon review of tele overnight. replete K. check mag. continue low dose toprol
-Avoiding SGLT2 antagonists given likelihood of urinary infection and patient has apparently refused in the past
-Given CKD, would not add spironolactone
-continue wound care. she had been on ceftriaxone, however discontinued due to rash. now on prednisone and claritin.
-she historically has refused VN services, although recommended.
Progress Note - Aeronautical Design Engineer
Subjective
Date of Service: September 02, 2023
developed rash last evening.
Objective
Labs:
08/31/23 06:07
09/02/23 08:26
Labs
Hgb 10.6 g/dL (12.0-16.0) L 08/31/23 06:07
Hct 32.5 % (37.0-47.0) L 08/31/23 06:07
Plt Count 336 10^3/uL (130-400) 08/31/23 06:07
Sodium 136 mmol/L (135-145) 09/02/23 08:26
Potassium 3.5 mmol/L (3.5-5.1) 09/02/23 08:26
BUN 57 mg/dl (7-17) H 09/02/23 08:26
Creatinine 1.7 mg/dL (0.6-1.0) H 09/02/23 08:26
Glucose 77 mg/dl (70-99) 09/02/23 08:26
Vital Signs and I&O:
Vital Signs
Temp Pulse Resp BP Pulse Ox
99.0 F 87 16 122/58 95
09/02/23 11:30 09/02/23 11:30 09/02/23 11:30 09/02/23 11:30 09/02/23 11:30
Vital Signs
Temp Pulse Resp BP Pulse Ox
99.0 F 87 16 122/58 95
09/02/23 11:30 09/02/23 11:30 09/02/23 11:30 09/02/23 11:30 09/02/23 11:30
Intake & Output
08/31/23 09/01/23 09/02/23 09/03/23
07:59 07:59 07:59 07:59
Intake Total 120 / 120 900 / 900 730 / 730
Output Total 1550 / 1550 800 / 800 550 / 550
Balance -1430 / -1430 100 / 100 180 / 180
[2023-09-02] MEDS: XOPENEX HFA 45 MCG INHALER 2 PUFF INH (14:24)
[2023-09-02 14:38] LABS: Magnesium 2.4 mg/dl (1.6-2.3)
[2023-09-02] MEDS: KCL 40 MEQ PO (17:58)
[2023-09-02] MEDS: DESENEX/MITRAZOL/ZEASORB 1 APPLIC TOPICAL (21:13)
[2023-09-02] MEDS: COLACE 100 MG PO (21:13)
[2023-09-02] MEDS: LIPITOR 20 MG PO (21:13)
[2023-09-02] MEDS: DAKIN'S SOLUTION 0.125% 1/4 STRENGTH 473 ML TOPICAL (21:14)
[2023-09-02] MEDS: HYDROPHOR 1 APPLIC TOPICAL (21:14)
[2023-09-02] MEDS: DESENEX/MITRAZOL/ZEASORB TOPICAL (21:57)
[2023-09-03] VITALS (7 sets, daily range): BP systolic 110–136; BP diastolic 48–66; BMI 47.1
[2023-09-03 07:15] LABS: Blood Urea Nitrogen 69 mg/dl (7-17); Carbon Dioxide 33 mmol/L (22-30); Chloride 94 mmol/L (98-107); Estimated Creatinine Clearance 31 ml/min; Glucose 106 mg/dl (70-99); Potassium 3.8 mmol/L (3.5-5.1); Sodium 136 mmol/L (135-145); eGFR 26.53
[2023-09-03] MEDS: ADVAIR HFA 115/21 MCG INHALER 2 PUFF INH ×2 (08:14→19:25)
[2023-09-03] MEDS: LASIX 80 MG IV (08:14)
[2023-09-03] MEDS: KCL 20 MEQ PO (08:15)
[2023-09-03] MEDS: CLARITIN 10 MG PO (08:15)
[2023-09-03] MEDS: TOPROL XL 12.5 MG PO (08:15)
[2023-09-03] MEDS: XOPENEX HFA 45 MCG INHALER 2 PUFF INH (08:15)
[2023-09-03] MEDS: HEPARIN 5000 UNITS SC ×2 (08:15→20:26)
[2023-09-03] MEDS: APRESOLINE 50 MG PO ×2 (08:15→20:34)
[2023-09-03] MEDS: MIRALAX PO (08:18)
[2023-09-03] MEDS: COLACE PO ×3 (08:18→20:36)
[2023-09-03] MEDS: DESENEX/MITRAZOL/ZEASORB 1 APPLIC TOPICAL ×2 (08:19→20:27)
[2023-09-03] MEDS: DAKIN'S SOLUTION 0.125% 1/4 STRENGTH 1 ML TOPICAL (08:19)
[2023-09-03] MEDS: HYDROPHOR 1 APPLIC TOPICAL (08:19)
--- NOTE | 2023-09-03 09:34 | W.PN.HOSP.TC ---
Today's Communication/Plan
-
Stop Lasix
Bladder scan
Zyrtec
Continue prednisone
Assessment / Plan
Assessment / Plan
Gen-AAOx3, NAD, morbid obesity
HEENT-NC, AT, anicteric, clear oral mm
Neck-supple
CV-reg, no M, +S1/S2
Lungs-clear B/L
Abd-soft, NT, ND
Ext-severe bilateral lower extremity lymphedema with erythema
Musculoskeletal-no cyanosis, clubbing
Skin-warm and dry, diffuse maculopapular rash primarily on her back, also on her arms
Neuro-grossly non-focal
Psych-calm, cooperative
Drug rash - suspect due to ceftriaxone. Now discontinued. Will change to Zyrtec and continue prednisone given ongoing pruritus. Rash looks about the same today compared to yesterday.
Acute on chronic systolic CHF with cardiomyopathy and Chronic hypoxic respiratory failure on chronic 2 L nasal cannula--cont diuresis, daily weights, I/Os--BNP 06009--Zkkndo 2D echo EF 40-45%--cont BID IV lasix-- metolazone 2.5 mg as per cards.
Weight unfortunately climbing, 122 kg today.
Lower extremity wounds/skin and soft tissue infection -wound culture shows Citrobacter. At this point I will stop further antibiotics given her drug rash. Appreciate wound nurse input. The wounds do not clinically look infected. I question the
culture results as a possible colonization. No systemic signs or symptoms of infection.
Chronic bilateral lower extremity lymphedema -follow-up with the wound care clinic. Discussed with patient.
ALMA on CKD stage 3B-- due to possible cardiorenal--Creat 1.6 was 1.2 on 07/31/2023. Creatinine unfortunately rising, 1.9 today. Hold further Lasix. Check bladder scan.
Right shoulder severe rotator cuff arthropathy--x-ray of the right shoulder reviewed--will need outpt ortho f/u.
Essential HTN--Continue hydralazine 50 mg twice daily
DM 2 without hyperglycemia -Continue repaglinide 0.5 mg twice daily blood sugar in the 150. Glucose 106 this morning. Hemoglobin A1c 6.1% in June. She is on as needed repaglinide at home.
Hyperlipidemia -May continue atorvastatin 20 mg at bedtime
Asthma, mild persistent -resume Advair. Continue as needed levalbuterol. She states she is allergic to albuterol.
Obstructive sleep apnea--Stopped using CPAP several years ago
Right lower extremity DVT October 2019
Morbid obesity due to excess calorie consumption -Weight loss recommended, 1800 diet, fluid restrict
Other PMH:
bilateral buttocks healing stage II pressure ulcer on prior admit--bilateral posterior thighs healing stage II ulcer on prior admit--Consult wound care
DVT prophylaxis--Subcu heparin
Code status Full code
Dispo -will need SNF on discharge.
Anticipated Discharge: > 48 hours
Subjective/Interval History
-
Date of Service: September 03, 2023
Patient seen and examined. Complaining of pruritus.
Objective Data
-
Labs:
Laboratory Results
09/03/23
06:21
Sodium 136
Potassium 3.8
Chloride 94 L
Carbon Dioxide 33 H
BUN 69 H
Creatinine 1.9 H
Glucose 106 H
Calcium 8.0 L
Vital Signs:
Vital Signs
Temp Pulse Resp BP Pulse Ox
98.0 F 51 16 124/48 96
09/03/23 07:30 09/03/23 08:21 09/03/23 08:21 09/03/23 08:14 09/03/23 08:21
I&O
09/02/23 09/03/23 09/04/23
06:59 06:59 06:59
Intake Total 730 / 730 930 / 930
Output Total 550 / 550 300 / 300
Balance 180 / 180 630 / 630
Review of Systems
-
History Source: Patient
All other systems: Reviewed and negative
[2023-09-03] MEDS: ASPIR LOW (ENTERIC COATED) 81 MG PO (11:40)
[2023-09-03] MEDS: ZYRTEC 10 MG PO (11:40)
[2023-09-03] MEDS: DELTASONE 40 MG PO (11:41)
[2023-09-03] MEDS: THERAGRAN 1 TABLET PO (11:41)
--- NOTE | 2023-09-03 12:19 | W.PN.CARDCBS ---
Today's Communication / Plan
-
Lasix held for worsening renal insufficiency
Consider nephrology consult and/or right heart catheterization tomorrow
Impression / Plan
-
PCP: Cris Avilez PA-C
Trench Digger Helper: Dr. Ott
Impression:
Presented 08/28/2023 with progressively worsening shortness of breath, weight gain
Acute on chronic heart failure with mildly reduced ejection fraction, proBNP 11,300
ALMA
Right shoulder/arm pain
COVID-19 treated with Paxlovid and Decadron 07/27/2021 - 07/31/2023
Chronic hypoxic respiratory failure on home oxygen 1-2 L via NC
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
NonMI troponin elevation
Hypokalemia
Frequent PVCs and bigeminy
Asthma/COPD
Chronic Lymphedema and chronic venous stasis changes
Hypertension
HLD
DM II
MARIAMA
Peripheral Neuropathy
History of DVT
Morbid Obesity
Medication and dietary non-adherence
Echo 08/22/21:�LVEF 53%, mild LVH, Mild MR, Mild 20/10 PRECIOUS 1.7cm2, mild AI
Echo 03/24/22: Technically limited study and patient was scanned in a wheelchair. No regional wall motion abnormalities are seen. LV ejection fraction is 53% by Phan's biplane method�of discs. Mild left ventricular hypertrophy. Normal diastolic
function. Mild mitral regurgitation is seen. This may be underestimated due to acoustic shadowing. Mild aortic stenosis. Peak/mean gradients across the aortic valve 20/10 mmHg. Using an LVOT diameter�of 2.0 cm the aortic valve by the Continuity
equation is calculated at 1.7 cm2. Mild aortic regurgitation.
Echo 12/18/2022:�EF 40-45%, global hypokinesis, moderate cLVH, stage II diastolic dysfunction, mild MS, mild MR, severely dilated LA, moderate with peak/mean gradients 45/20 mmHg, PRECIOUS 1.2 cm2, mild AR, mild TR, estimated PAP 42 mmHg,
Echo 03/16/2023: EF 45-50%, moderate cLVH, global hypokinesis, mild MR, mild to moderate with peak/mean gradients 21/12 mmHg, mild TR, estimated PAP 30-35 mmHg
Plan:
Acute on chronic heart failure exacerbation with low normal ejection fraction
-proBNP 11,300
-Volume status is difficult with no significant change in weight
-Creatinine increasing, currently 1.9. Will hold Lasix tonight however still looks volume overloaded. May need nephrology involvement. Could consider right heart catheterization tomorrow
-Historically, goal-directed medical therapy has been limited by patient preference as well as renal insufficiency
-Monitor telemetry.� Consider addition of low-dose beta-lucero however she has had bradycardia in the past
-She has declined Jardiance in the past
-Reported allergy to KAROLINA inhibitor�unsure of reaction.� Continue hydralazine and consider adding Imdur
-No need to repeat echocardiogram at this time
-TSH normal
Lymphedema, chronic venous stasis changes with cellulitis
-Lower extremity duplex negative for DVT; she has a history of a DVT October 2019
-Wound care
-Antibiotics discontinued, defer to primary
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
Drug rash secondary to ceftriaxone now discontinued on prednisone and Zyrtec
-Right arm/shoulder pain xray shows severe rotator cuff arthropathy with a high riding position of the humeral head.� Plan for outpatient orthopedic consult
Progress Note - Trench Digger Helper
Subjective
Date of Service: September 03, 2023
Seen and examined. Major complaint is diffuse itching secondary to drug rash. No chest pain or pressure. Shortness of breath at rest stable
Objective
Labs:
08/31/23 06:07
09/03/23 06:21
Labs
Hgb 10.6 g/dL (12.0-16.0) L 08/31/23 06:07
Hct 32.5 % (37.0-47.0) L 08/31/23 06:07
Plt Count 336 10^3/uL (130-400) 08/31/23 06:07
Sodium 136 mmol/L (135-145) 09/03/23 06:21
Potassium 3.8 mmol/L (3.5-5.1) 09/03/23 06:21
BUN 69 mg/dl (7-17) H 09/03/23 06:21
Creatinine 1.9 mg/dL (0.6-1.0) H 09/03/23 06:21
Glucose 106 mg/dl (70-99) H 09/03/23 06:21
Vital Signs and I&O:
Vital Signs
Temp Pulse Resp BP Pulse Ox
98.0 F 51 16 124/48 96
09/03/23 07:30 09/03/23 08:21 09/03/23 08:21 09/03/23 08:14 09/03/23 08:21
Vital Signs
Temp Pulse Resp BP Pulse Ox
98.0 F 51 16 124/48 96
09/03/23 07:30 09/03/23 08:21 09/03/23 08:21 09/03/23 08:14 09/03/23 08:21
Intake & Output
09/01/23 09/02/23 09/03/23 09/04/23
06:59 06:59 06:59 06:59
Intake Total 900 / 900 730 / 730 930 / 930
Output Total 800 / 800 550 / 550 300 / 300
Balance 100 / 100 180 / 180 630 / 630
Physical Exam
Physical Exam
GEN: Chronically ill 77-year-old female who appears older than her stated age
HEENT: Nasal cannula O2.� Mucous membranes moist
LUNGS: Bronchovesicular breath sounds, decreased at the bases but clear
CV: Regular with ectopy.� Positive S1-S2.� 2/6 systolic murmur
ABD: Obese, nontender.� Positive bowel sounds
EXT: +2 edema with malodor, thickened skin folds, hyperpigmentation, chronic venous stasis. Diffuse erythematous drug rash
[2023-09-03] MEDS: LIPITOR 20 MG PO (21:12)
[2023-09-03 22:38] LABS: Glucose - Point of Care 210 mg/dl (70-99)
[2023-09-04 03:25] VITALS: BP 124/52
[2023-09-04 06:00] VITALS: BMI 47.7
[2023-09-04 07:16] LABS: Blood Urea Nitrogen 72 mg/dl (7-17); Calcium 7.9 mg/dl (8.4-10.2); Carbon Dioxide 32 mmol/L (22-30); Chloride 97 mmol/L (98-107); Estimated Creatinine Clearance 29 ml/min; Glucose 103 mg/dl (70-99); Potassium 4.4 mmol/L (3.5-5.1); Sodium 134 mmol/L (135-145); eGFR 24.94
[2023-09-04 07:50] LABS: Glucose - Point of Care 96 mg/dl (70-99)
[2023-09-04 08:01] VITALS: BP 131/50
[2023-09-04] MEDS: ADVAIR HFA 115/21 MCG INHALER 2 PUFF INH ×2 (08:22→19:27)
[2023-09-04] MEDS: NOVOLOG FLEXPEN-LOW RESISTANCE SC (08:36)
[2023-09-04] MEDS: APRESOLINE 50 MG PO ×2 (08:36→20:50)
[2023-09-04] MEDS: ZYRTEC 10 MG PO (08:37)
[2023-09-04] MEDS: DELTASONE 40 MG PO (08:37)
[2023-09-04] MEDS: TOPROL XL 12.5 MG PO (08:37)
[2023-09-04] MEDS: HEPARIN 5000 UNITS SC ×2 (08:38→20:49)
[2023-09-04] MEDS: KCL 20 MEQ PO (08:38)
[2023-09-04] MEDS: DAKIN'S SOLUTION 0.125% 1/4 STRENGTH 473 ML TOPICAL (08:44)
[2023-09-04 08:45] LABS: Glycohemoglobin (HgbA1c) 6.4 % (4.0-5.6)
[2023-09-04] MEDS: DESENEX/MITRAZOL/ZEASORB 1 APPLIC TOPICAL ×2 (08:45→20:50)
[2023-09-04] MEDS: HYDROPHOR 1 APPLIC TOPICAL (08:45)
[2023-09-04] MEDS: COLACE PO ×2 (09:05→20:48)
[2023-09-04] MEDS: MIRALAX PO (09:05)
--- NOTE | 2023-09-04 09:55 | W.PN.HOSP.TC ---
Today's Communication/Plan
-
Nephrology consult
Assessment / Plan
Assessment / Plan
Gen-AAOx3, NAD, morbid obesity
HEENT-NC, AT, anicteric, clear oral mm
Neck-supple
CV-reg, no M, +S1/S2
Lungs-clear B/L
Abd-soft, NT, ND
Ext-severe bilateral lower extremity lymphedema with erythema
Musculoskeletal-no cyanosis, clubbing
Skin-warm and dry, diffuse maculopapular rash primarily on her back, also on her arms
Neuro-grossly non-focal
Psych-calm, cooperative
ALMA on CKD stage 3B-- due to possible cardiorenal--Creat 1.6 was 1.2 on 07/31/2023. Creatinine unfortunately rising, 2.0 today. Lasix stopped 09/02. Check bladder scan. Consider right heart catheterization. Will consult nephrology.
Drug rash - suspect due to ceftriaxone. Now discontinued. Rash is improving on Zyrtec and prednisone.
Acute on chronic systolic CHF with cardiomyopathy and Chronic hypoxic respiratory failure on chronic 2 L nasal cannula--cont diuresis, daily weights, I/Os--BNP 09549--Toxtgd 2D echo EF 40-45%--cont BID IV lasix-- metolazone 2.5 mg as per cards.
Weight unfortunately climbing, 124 kg today.
Lower extremity wounds/skin and soft tissue infection -wound culture shows Citrobacter. At this point I will stop further antibiotics given her drug rash. Appreciate wound nurse input. The wounds do not clinically look infected. I question the
culture results as a possible colonization. No systemic signs or symptoms of infection.
Chronic bilateral lower extremity lymphedema -follow-up with the wound care clinic. Discussed with patient.
Right shoulder severe rotator cuff arthropathy--x-ray of the right shoulder reviewed--will need outpt ortho f/u.
Essential HTN--Continue hydralazine 50 mg twice daily
DM 2 without hyperglycemia -Continue repaglinide 0.5 mg twice daily blood sugar in the 150. Glucose 103 this morning. Hemoglobin A1c 6.1% in June. She is on as needed repaglinide at home.
Hyponatremia -sodium 134.
Hyperlipidemia -May continue atorvastatin 20 mg at bedtime
Asthma, mild persistent -resume Advair. Continue as needed levalbuterol. She states she is allergic to albuterol.
Obstructive sleep apnea--Stopped using CPAP several years ago
Right lower extremity DVT October 2019
Morbid obesity due to excess calorie consumption -Weight loss recommended, 1800 diet, fluid restrict
Other PMH:
bilateral buttocks healing stage II pressure ulcer on prior admit--bilateral posterior thighs healing stage II ulcer on prior admit--Consult wound care
DVT prophylaxis--Subcu heparin
Code status Full code
Dispo -will need SNF on discharge.
Anticipated Discharge: > 48 hours
Subjective/Interval History
-
Date of Service: September 04, 2023
Patient seen and examined. Her rash pruritus is improving, no complaints.
Objective Data
-
Labs:
Laboratory Results
09/04/23
06:24
Sodium 134 L
Potassium 4.4
Chloride 97 L
Carbon Dioxide 32 H
BUN 72 H
Creatinine 2.0 H
Glucose 103 H
Calcium 7.9 L
Vital Signs:
Vital Signs
Temp Pulse Resp BP Pulse Ox
97.5 F 62 16 131/50 98
09/04/23 08:01 09/04/23 08:26 09/04/23 08:26 09/04/23 08:01 09/04/23 08:26
I&O
09/03/23 09/04/23 09/05/23
06:59 06:59 06:59
Intake Total 930 / 930 400 / 400
Output Total 300 / 300 250 / 250
Balance 630 / 630 150 / 150
Review of Systems
-
History Source: Patient
All other systems: Reviewed and negative
[2023-09-04 11:33] VITALS: BP 134/53
[2023-09-04] MEDS: THERAGRAN 1 TABLET PO (11:52)
[2023-09-04] MEDS: ASPIR LOW (ENTERIC COATED) 81 MG PO (11:52)
--- NOTE | 2023-09-04 12:06 | W.PN.CARDCBS ---
Today's Communication / Plan
-
Hold lasix
Monitor renal function
Repeat BNP
Impression / Plan
-
PCP: Cris Avilez PA-C
Hot Oiler: Dr. Ott
Impression:
Presented 08/28/2023 with progressively worsening shortness of breath, weight gain
Acute on chronic heart failure with mildly reduced ejection fraction, proBNP 11,300
ALMA
Right shoulder/arm pain
COVID-19 treated with Paxlovid and Decadron 07/27/2021 - 07/31/2023
Chronic hypoxic respiratory failure on home oxygen 1-2 L via NC
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
NonMI troponin elevation
Hypokalemia
Frequent PVCs and bigeminy
Asthma/COPD
Chronic Lymphedema and chronic venous stasis changes
Hypertension
HLD
DM II
MARIAMA
Peripheral Neuropathy
History of DVT
Morbid Obesity
Medication and dietary non-adherence
Echo 08/22/21:�LVEF 53%, mild LVH, Mild MR, Mild 20/10 PRECIOUS 1.7cm2, mild AI
Echo 03/24/22: Technically limited study and patient was scanned in a wheelchair. No regional wall motion abnormalities are seen. LV ejection fraction is 53% by Phan's biplane method�of discs. Mild left ventricular hypertrophy. Normal diastolic
function. Mild mitral regurgitation is seen. This may be underestimated due to acoustic shadowing. Mild aortic stenosis. Peak/mean gradients across the aortic valve 20/10 mmHg. Using an LVOT diameter�of 2.0 cm the aortic valve by the Continuity
equation is calculated at 1.7 cm2. Mild aortic regurgitation.
Echo 12/18/2022:�EF 40-45%, global hypokinesis, moderate cLVH, stage II diastolic dysfunction, mild MS, mild MR, severely dilated LA, moderate with peak/mean gradients 45/20 mmHg, PRECIOUS 1.2 cm2, mild AR, mild TR, estimated PAP 42 mmHg,
Echo 03/16/2023: EF 45-50%, moderate cLVH, global hypokinesis, mild MR, mild to moderate with peak/mean gradients 21/12 mmHg, mild TR, estimated PAP 30-35 mmHg
Plan:
Acute on chronic heart failure exacerbation with low normal ejection fraction
-proBNP 11,300 on admission
-Volume status is difficult to assess
-Subjective feels better
-With creatinine rising would continue to hold Lasix
-Repeat proBNP with evening labs
-Historically, goal-directed medical therapy has been limited by patient preference as well as renal insufficiency
-She has declined Jardiance in the past
-Reported allergy to KAROLINA inhibitor�unsure of reaction.� Continue hydralazine and consider adding Imdur
Lymphedema, chronic venous stasis changes with cellulitis
-Lower extremity duplex negative for DVT; she has a history of a DVT October 2019
-Wound care
-Antibiotics discontinued, defer to primary
Drug rash secondary to ceftriaxone now discontinued on prednisone and Zyrtec
Right arm/shoulder pain xray shows severe rotator cuff arthropathy with a high riding position of the humeral head.� Plan for outpatient orthopedic consult
Progress Note - Hot Oiler
Subjective
Date of Service: September 04, 2023
KRISTIN. Tells me her breathing is significantly improved. Still requiring 3L O2, but close to baseline 2L. Rash has not resolved.
Objective
Labs:
08/31/23 06:07
09/04/23 06:24
Labs
Hgb 10.6 g/dL (12.0-16.0) L 08/31/23 06:07
Hct 32.5 % (37.0-47.0) L 08/31/23 06:07
Plt Count 336 10^3/uL (130-400) 08/31/23 06:07
Sodium 134 mmol/L (135-145) L 09/04/23 06:24
Potassium 4.4 mmol/L (3.5-5.1) 09/04/23 06:24
BUN 72 mg/dl (7-17) H 09/04/23 06:24
Creatinine 2.0 mg/dL (0.6-1.0) H 09/04/23 06:24
Glucose 103 mg/dl (70-99) H 09/04/23 06:24
Vital Signs and I&O:
Vital Signs
Temp Pulse Resp BP Pulse Ox
97.7 F 62 17 134/53 98
09/04/23 11:33 09/04/23 11:33 09/04/23 11:33 09/04/23 11:33 09/04/23 11:33
Vital Signs
Temp Pulse Resp BP Pulse Ox
97.7 F 62 17 134/53 98
09/04/23 11:33 09/04/23 11:33 09/04/23 11:33 09/04/23 11:33 09/04/23 11:33
Intake & Output
09/02/23 09/03/23 09/04/23 09/05/23
06:59 06:59 06:59 06:59
Intake Total 730 / 730 930 / 930 400 / 400
Output Total 550 / 550 300 / 300 250 / 250
Balance 180 / 180 630 / 630 150 / 150
Physical Exam
Physical Exam
Gen: NAD, AAOx3
HEENT: NC/AT, sclera anicteric
Neck: No clear JVD
CV: RRR, NL s1/s2
Lungs: No increased WOB on 3L NC
Abd: S/ND
Ext: Non pitting LE edema with overlying brawny edema
Skin: Warm, dry, diffuse erythematous rash
Neuro: Non-focal
[2023-09-04 12:21] LABS: Glucose - Point of Care 233 mg/dl (70-99)
[2023-09-04] MEDS: NOVOLOG FLEXPEN-LOW RESISTANCE 2 UNITS SC (14:09)
[2023-09-04 15:03] VITALS: BP 144/70
[2023-09-04] MEDS: TYLENOL 650 MG PO (15:03)
--- NOTE | 2023-09-04 15:30 | W.CON.NEPH ---
Consultation
-
Date/Time Consultation Requested: 09/04/23 9:44AM
Date/Time Consultation Performed: 08/31/23 3:31PM
Requesting Provider: Alex Dahl
Performing Provider: Tarah Malik
Reason for Consultation: ALMA on CKD
Medical History
-
Chief Complaint: ALMA on CKD
History of Present Illness:
Ms. Middleton is a 77 YOF with PMH of CKD III A/B, chronic hypoxia on 2L NC, chronic HFrEF, , M, HTN, DLD, MARIAMA (not using CPAP), T2DM c/b peripheral neuropathy, lymphedema, obesity who presents to the hospital for bradycardia and LE infection. She
was noted to have significant weight gain, SOB on 08/27.
Briefly, the patient was admitted from 07/27-07/31 for COVID-19 treated with dex and paxlovid. She now presents with a 15lb weight gain over the last several days. She typically manages her sxs with lasix 80 daily and metolazone 2.5mg weekly. She
denies medication or dietary noncompliance. She denies chest pain or pressure. CXR did show increased interstial markings. LE doppler negative for DVT. Patient was given 80IV lasix in the ED with some weight loss. However, overall, her weights
continue to rise. She is up to 124kg (on presentation she was 118kg. we must note that these are bed weights). Reviewing her Cr, she was 1.2 at discharge. More recently, on presentation she was 1.6 --> 1.7 -->1.9 --> 2 this AM. Lasix was stopped on
09/02. Reviewing her I/Os she is only down 900cc overall.
Past Medical History
COVID-19 treated with Paxlovid and Decadron 07/27/2021 - 07/31/2023
Chronic hypoxic respiratory failure on home oxygen 1-2 L via NC
Chronic HFrEF (40-45%)
Frequent PVCs and bigeminy
Asthma
Chronic Lymphedema and chronic venous stasis changes
Hypertension
HLD
DM II
MARIAMA
Peripheral Neuropathy
History of DVT
Morbid Obesity
Social History
Tobacco: Non-Smoker
Alcohol: None
Drug: None
Living: With Family
Employment: Disabled
Family History
Family History: Not Pertinent
Allergies / Home Medications
Allergy/AdvReac Type Severity Reaction Status Date / Time
albuterol Allergy 'could not Verified 08/28/23 21:46
breath'
ceftriaxone [From Rocephin] Allergy Rash Verified 09/04/23 12:47
08/28/23
admission
cefuroxime [From Ceftin] Allergy facial Verified 09/04/23 12:45
droop,lip
swell/Margie
cefepime,
cefazolin
latex Allergy Rash Verified 08/28/23 21:46
levofloxacin [From Levaquin] Allergy facial Verified 08/28/23 21:46
droop,
rash,
numbness
lisinopril Allergy Shortness Verified 08/28/23 21:46
of Breath
naproxen Allergy Rash Verified 08/28/23 21:46
NSAIDS (Non-Steroidal Allergy Rash Verified 08/28/23 21:46
Anti-Inflamma
poison aroldo extract Allergy Unknown Verified 08/28/23 21:46
poison oak extract Allergy Unknown Verified 08/28/23 21:46
Medication Instructions Recorded Confirmed Type
multivitamin with folic acid 400 1 tab PO NOON Supplement 09/22/16 08/28/23 History
mcg tablet (Tab-A-Toy)
atorvastatin 20 mg tablet 20 mg PO HS High cholesterol 11/08/19 08/28/23 History
repaglinide 0.5 mg tablet 0.5 mg PO BIDPRN PRN BLOOD SUGAR 07/01/22 08/28/23 History
>150
aspirin 81 mg tablet,delayed 81 mg PO NOON Blood clot 09/01/22 08/28/23 History
release prevention/tx
metolazone 2.5 mg tablet 2.5 mg PO RYAN Fluid 03/15/23 08/28/23 History
Retention/Swelling
furosemide 80 mg tablet 80 mg PO DAILY Fluid 04/26/23 08/28/23 History
Retention/Swelling
acetaminophen 325 mg tablet 650 mg PO Q6HPRN PRN mild pain 07/27/23 08/28/23 History
(Tylenol)
levalbuterol tartrate 45 2 inh inhalation R DAILYPRN PRN sob 07/27/23 08/28/23 History
mcg/actuation aerosol inhaler
(Xopenex HFA)
potassium chloride 20 mEq 20 meq PO RYAN Supplement 07/27/23 08/28/23 History
tablet,extended
release(part/cryst) (Klor-Con M)
hydralazine 50 mg tablet 50 mg PO BID #60 tabs 07/31/23 08/28/23 Rx
promethazine 6.25 mg-codeine 10 5 ml PO Q4HPRN PRN cough #200 mL 07/31/23 08/28/23 Rx
mg/5 mL syrup
miconazole nitrate 2 % topical 1 applic topical BID FOLDS 08/28/23 08/28/23 History
powder (Miconazorb AF)
Review of Systems
-
History Source: Patient
All other systems: Negative unless noted
Musculoskeletal: Edema
Skin: Rash
Physical Exam
Vital Signs
Vital Signs
Temp Pulse Resp BP Pulse Ox
97.7 F 68 17 144/70 97
09/04/23 15:03 09/04/23 15:03 09/04/23 15:03 09/04/23 15:03 09/04/23 15:03
Lab Results
WBC 7.4 10^3/uL (4.8-10.8) 08/31/23 06:07
RBC 3.83 10^6/uL (4.20-5.40) L 08/31/23 06:07
Hgb 10.6 g/dL (12.0-16.0) L 08/31/23 06:07
Hct 32.5 % (37.0-47.0) L 08/31/23 06:07
Plt Count 336 10^3/uL (130-400) 08/31/23 06:07
Sodium 134 mmol/L (135-145) L 09/04/23 06:24
Potassium 4.4 mmol/L (3.5-5.1) 09/04/23 06:24
Chloride 97 mmol/L (98-107) L 09/04/23 06:24
Carbon Dioxide 32 mmol/L (22-30) H 09/04/23 06:24
BUN 72 mg/dl (7-17) H 09/04/23 06:24
Creatinine 2.0 mg/dL (0.6-1.0) H 09/04/23 06:24
eGFR 24.94 09/04/23 06:24
Glucose 103 mg/dl (70-99) H 09/04/23 06:24
Calcium 7.9 mg/dl (8.4-10.2) L 09/04/23 06:24
Kqs-X-Pdkyzxzhgfj Pept 95401 pg/ml 08/28/23 21:56
Albumin 2.7 g/dl (3.5-5.0) L 08/31/23 06:07
Physical Exam
General: AOx3, No Distress and Nontoxic
HEENT: PERRL, EOMI, Anicteric, Conjunctivae Clear, Ear/Nose Intact and Hearing Normal
Respiratory: Other (difficult to aucultate due to body habitus)
Cardiac: S1/S2, Regular Rate/Rhythm and Edema
Breast: Deferred by me
Abdomen: Soft, Nontender, Nondistended and Normal Bowel Sounds
Rectal: Deferred by Provider
Genito-urinary: Clear Urine
Musculoskeletal: Edema
Skin: Warm, Dry and Other (rash on bilateral upper extremities. lower extremities wrapped)
Neuro: Nonfocal/Grossly Intact
Psych: Mood/afflect pleasant, Insight/judgement good and Appropriate
Assessment/Plan
-
Assessment:
ALMA on CKD 3 (bl Cr 1.2-1.4)
ADHF (EF 40-45%)
Drug rash
LE wounds
HTN
DLDAsthma
MARIAMA
RLE DVT 2020
morbid obesity
Plan:
ALMA
- differential: cardiorenal vs. AIN in setting of recent abx usage (less likely without peripheral eosinophilia)
- weights are significantly up in the setting of holding lasix and adding on prednisone (salt retention)
- discussed at length with the patient about reinitiating lasix and she does not want to at this time. she would like to trial one more day off of the medication
- she said if her kidney function is worsening tomorrow, she will be amenable to try then
- patient is currently denying SOB or worsening LE edema. on 3L NC (bl 2L). if Cr worse tomorrow, will reorder CXR
- obtain UA to r/o AIN
- if Cr continues to worsen, we will have to consider RHC.
Data Reviewed
-
Radiology: Image Personally Visualized and interpreted (appears to have significant vascular congestion)
Labs: Labs Reviewed by me, Discussed with Physician and Discussed with Patient
Old Records: Reviewed
--- NOTE | 2023-09-04 16:20 | CM ---
Skilled rehab is continuing to be the indication on behalf of PT/OT. Will need to talk to patient/family about going home as patient is requiring a lot of assistance.
Plan: Case management will continue to follow and assist with discharge planning. CM will need to talk to patient again about SNF.
[2023-09-04 16:41] LABS: Glucose - Point of Care 258 mg/dl (70-99)
[2023-09-04] MEDS: NOVOLOG FLEXPEN-LOW RESISTANCE 3 UNITS SC (17:10)
[2023-09-04] MEDS: PRANDIN 0.5 MG PO (17:10)
[2023-09-04 19:57] VITALS: BP 142/61
[2023-09-04 20:46] VITALS: BMI 47.7
[2023-09-04] MEDS: LIPITOR 20 MG PO (20:49)
[2023-09-04 21:39] LABS: Glucose - Point of Care 215 mg/dl (70-99)
[2023-09-04] MEDS: HYDROCORTISONE 2.5% CREAM 1 APPLIC TOPICAL (22:00)
[2023-09-04 23:03] VITALS: BP 120/55
[2023-09-05 03:39] VITALS: BP 135/65
[2023-09-05 06:06] VITALS: BMI 47.0
[2023-09-05 07:21] VITALS: BP 136/72
[2023-09-05 07:30] LABS: Glucose - Point of Care 93 mg/dl (70-99)
[2023-09-05] MEDS: KCL 20 MEQ PO (07:38)
[2023-09-05] MEDS: ZYRTEC 10 MG PO (07:38)
[2023-09-05] MEDS: APRESOLINE 50 MG PO ×2 (07:38→20:45)
[2023-09-05] MEDS: TOPROL XL 12.5 MG PO (07:38)
[2023-09-05] MEDS: HEPARIN 5000 UNITS SC ×2 (07:39→20:45)
[2023-09-05] MEDS: DESENEX/MITRAZOL/ZEASORB 1 APPLIC TOPICAL ×2 (07:44→20:46)
[2023-09-05] MEDS: DAKIN'S SOLUTION 0.125% 1/4 STRENGTH 473 ML TOPICAL (07:44)
[2023-09-05] MEDS: HYDROPHOR 1 APPLIC TOPICAL (07:45)
[2023-09-05] MEDS: TYLENOL 650 MG PO ×2 (07:50→17:31)
[2023-09-05] MEDS: MIRALAX PO (07:53)
[2023-09-05] MEDS: NOVOLOG FLEXPEN-LOW RESISTANCE SC ×2 (07:53→16:58)
[2023-09-05] MEDS: COLACE PO ×2 (07:53→20:46)
[2023-09-05] MEDS: HYDROCORTISONE 2.5% CREAM 1 APPLIC TOPICAL ×2 (07:54→20:46)
[2023-09-05] MEDS: ADVAIR HFA 115/21 MCG INHALER 2 PUFF INH ×2 (08:04→19:21)
[2023-09-05 08:09] LABS: % Basophils 0.7 % (0-2); % Eosinophils 3.4 % (0-6); % Immature Granulocytes 0.9 % (0-0.5); % Lymphocytes 12.2 % (20.5-51.1); % Monocytes 7.1 % (1.7-9.3); % Neutrophils 75.7 % (42.2-75.2); Absolute Basophils 0.1 10^3/uL (0-0.2); Absolute Eosinophils 0.4 10^3/uL (0-0.7); Absolute Immature Granulocytes 0.1 10^3/uL (0-0.05); Absolute Lymphocytes 1.5 10^3/uL (1.2-3.4); Absolute Monocytes 0.9 10^3/uL (0.1-0.6); Absolute Neutrophils 9.1 10^3/uL (1.4-6.5); Hematocrit 32.2 % (37.0-47.0); Hemoglobin 10.2 g/dL (12.0-16.0); Mean Corp Hgb Conc. 31.7 g/dL (33.0-37.0); Mean Corpuscular Hgb 26.7 pg (27.0-31.0); Mean Corpuscular Volume 84.3 fL (81.0-99.0); Mean Platelet Volume 9.3 fL (7.4-10.4); Nucleated Red Blood Cells % 0 %; Platelet Count 342 10^3/uL (130-400); Red Blood Cell Count 3.82 10^6/uL (4.20-5.40); Red Cell Dist. Width 16.3 % (11.5-14.5); White Blood Cell Count 12.1 10^3/uL (4.8-10.8)
[2023-09-05 08:28] LABS: NT-proBNP 19200 pg/ml
[2023-09-05 08:36] LABS: Blood Urea Nitrogen 82 mg/dl (7-17); Calcium 8.2 mg/dl (8.4-10.2); Carbon Dioxide 33 mmol/L (22-30); Chloride 95 mmol/L (98-107); Estimated Creatinine Clearance 31 ml/min; Glucose 78 mg/dl (70-99); Sodium 137 mmol/L (135-145); eGFR 26.53
[2023-09-05 08:41] LABS: Potassium 4.8 mmol/L (3.5-5.1)
--- NOTE | 2023-09-05 11:18 | W.PN.HOSP.TC ---
Today's Communication/Plan
-
Resume Lasix
Continue local wound care
PT/OT
Monitor renal function
Assessment / Plan
Assessment / Plan
Gen-AAOx3, NAD, morbid obesity
HEENT-NC, AT, anicteric, clear oral mm
Neck-supple
CV-reg, no M, +S1/S2
Lungs-clear B/L
Abd-soft, NT, ND
Ext-severe bilateral lower extremity lymphedema with erythema
Musculoskeletal-no cyanosis, clubbing
Skin-warm and dry, diffuse maculopapular rash primarily on her back, also on her arms, improving overall
Neuro-grossly non-focal
Psych-calm, cooperative
ALAM on CKD stage 3B-- due to possible cardiorenal syndrome. Creatinine slightly better today, 1.9. Plan to resume furosemide today.
Drug rash - suspect due to ceftriaxone. Now discontinued. Rash is improving on Zyrtec and prednisone. Prednisone discontinued. Continue Zyrtec.
Acute on chronic systolic CHF with cardiomyopathy and Chronic hypoxic respiratory failure on chronic 2 L nasal cannula--BNP 40117--Awkmor 2D echo EF 40-45%.
Plan to resume furosemide 80 mg p.o. daily, this was her home dose. Discussed with nephrology and cardiology.
Lower extremity wounds/skin and soft tissue infection -wound culture shows Citrobacter. At this point I will stop further antibiotics given her drug rash. Appreciate wound nurse input. The wounds do not clinically look infected. I question the
culture results as a possible colonization. No systemic signs or symptoms of infection.
Chronic bilateral lower extremity lymphedema -follow-up with the wound care clinic. Weight loss encouraged. Discussed with patient.
Right shoulder severe rotator cuff arthropathy--x-ray of the right shoulder reviewed--will need outpt ortho f/u.
Essential HTN--Continue hydralazine 50 mg twice daily
DM 2 without hyperglycemia -Continue repaglinide 0.5 mg twice daily blood sugar in the 150. Glucose 78 this morning. Hemoglobin A1c 6.4%. She is on as needed repaglinide at home.
Hyponatremia -sodium improved.
Hyperlipidemia -May continue atorvastatin 20 mg at bedtime
Asthma, mild persistent -resume Advair. Continue as needed levalbuterol. She states she is allergic to albuterol.
Obstructive sleep apnea--Stopped using CPAP several years ago
Right lower extremity DVT October 2019
Morbid obesity due to excess calorie consumption -Weight loss recommended, 1800 diet, fluid restrict
Other PMH:
bilateral buttocks healing stage II pressure ulcer on prior admit--bilateral posterior thighs healing stage II ulcer on prior admit--Consult wound care
DVT prophylaxis--Subcu heparin
Code status Full code
Dispo -will need SNF on discharge.
Anticipated Discharge: > 48 hours
Subjective/Interval History
-
Date of Service: September 05, 2023
Patient seen and examined. Denies shortness of breath. States itching is improving.
Objective Data
-
Labs:
Laboratory Results
09/05/23
07:19
WBC 12.1 H
Hgb 10.2 L
Hct 32.2 L
Plt Count 342
Sodium 137
Potassium 4.8
Chloride 95 L
Carbon Dioxide 33 H
BUN 82 H
Creatinine 1.9 H
Glucose 78
Calcium 8.2 L
Vital Signs:
Vital Signs
Temp Pulse Resp BP Pulse Ox
97.5 F 68 16 136/72 94
09/05/23 07:21 09/05/23 08:07 09/05/23 08:07 09/05/23 07:21 09/05/23 08:07
I&O
09/04/23 09/05/23 09/06/23
06:59 06:59 07:59
Intake Total 400 / 400 900 / 900
Output Total 250 / 250 450 / 450
Balance 150 / 150 450 / 450
Review of Systems
-
History Source: Patient
All other systems: Reviewed and negative
[2023-09-05 11:21] VITALS: BP 149/62
--- NOTE | 2023-09-05 11:28 | W.PN.NEPH.PH ---
Today's Communication / Plan
-
- oral lasix
Assessment/Plan
-
Assessment:
ALMA on CKD 3 (bl Cr 1.2-1.4)
ADHF (EF 40-45%)
Drug rash
LE wounds
HTN
DLDAsthma
MARIAMA
RLE DVT 2020
morbid obesity
Plan:
ALMA
- differential: cardiorenal vs. AIN in setting of recent abx usage (less likely without peripheral eosinophilia)
- weights are significantly up in the setting of holding lasix and adding on prednisone (salt retention)
- discussed at length with the patient about reinitiating lasix yesterday. she is ok with oral lasix reinitiation today.
- patient is currently denying SOB or worsening LE edema. on 3L NC (bl 2L)
- obtain UA to r/o AIN. UA with WBCs. will CTM
- if Cr continues to worsen, we will have to consider RHC.
-
-
Date of Service: September 05, 2023
CC / HPI / ROS
-
Chief Complaint:
ALMA on CKD
History of Present Illness:
Cr stabilizing around 2
reinitiated lasix
Review of Systems:
denies SOB but has not gotten out of bed
Labs
-
Labs:
WBC 12.1 10^3/uL (4.8-10.8) H 09/05/23 07:19
RBC 3.82 10^6/uL (4.20-5.40) L 09/05/23 07:19
Hgb 10.2 g/dL (12.0-16.0) L 09/05/23 07:19
Hct 32.2 % (37.0-47.0) L 09/05/23 07:19
Plt Count 342 10^3/uL (130-400) 09/05/23 07:19
Sodium 137 mmol/L (135-145) 09/05/23 07:19
Potassium 4.8 mmol/L (3.5-5.1) 09/05/23 07:19
Chloride 95 mmol/L (98-107) L 09/05/23 07:19
Carbon Dioxide 33 mmol/L (22-30) H 09/05/23 07:19
BUN 82 mg/dl (7-17) H 09/05/23 07:19
Creatinine 1.9 mg/dL (0.6-1.0) H 09/05/23 07:19
eGFR 26.53 09/05/23 07:19
Glucose 78 mg/dl (70-99) 09/05/23 07:19
Calcium 8.2 mg/dl (8.4-10.2) L 09/05/23 07:19
Tlz-N-Iugobnvoiik Pept 43434 pg/ml 09/05/23 07:19
Albumin 2.7 g/dl (3.5-5.0) L 08/31/23 06:07
Physical Exam
-
Vital Signs:
Vital Signs
Temp Pulse Resp BP Pulse Ox
97.5 F 66 17 149/62 92
09/05/23 11:21 09/05/23 11:21 09/05/23 11:21 09/05/23 11:21 09/05/23 11:21
Cardiovascular:: Regular rate and rhythm
Respiratory:: Bilateral: Coarse
Lung Excursion:: Normal
Abdomen:: Nontender and Soft
Bowel Sounds:: Normal
Extremity Edema:: +3: Bilateral:
Loja Catheter: No
--- NOTE | 2023-09-05 11:30 | W.PN.CARDCBS ---
Today's Communication / Plan
-
Lasix p.o. restarted by nephrology
Stable cardiology status for discharge with difficult assessment of volume status and multiple readmissions
Sign off
Impression / Plan
-
PCP: Cris Avilez PA-C
Modeling Instructor: Dr. Ott
Impression:
Presented 08/28/2023 with progressively worsening shortness of breath, weight gain
Acute on chronic heart failure with mildly reduced ejection fraction, proBNP 11,300
ALMA
Right shoulder/arm pain
COVID-19 treated with Paxlovid and Decadron 07/27/2021 - 07/31/2023
Chronic hypoxic respiratory failure on home oxygen 1-2 L via NC
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
NonMI troponin elevation
Hypokalemia
Frequent PVCs and bigeminy
Asthma/COPD
Chronic Lymphedema and chronic venous stasis changes
Hypertension
HLD
DM II
MARIAMA
Peripheral Neuropathy
History of DVT
Morbid Obesity
Medication and dietary non-adherence
Echo 08/22/21:�LVEF 53%, mild LVH, Mild MR, Mild 20/10 PRECIOUS 1.7cm2, mild AI
Echo 03/24/22: Technically limited study and patient was scanned in a wheelchair. No regional wall motion abnormalities are seen. LV ejection fraction is 53% by Phan's biplane method�of discs. Mild left ventricular hypertrophy. Normal diastolic
function. Mild mitral regurgitation is seen. This may be underestimated due to acoustic shadowing. Mild aortic stenosis. Peak/mean gradients across the aortic valve 20/10 mmHg. Using an LVOT diameter�of 2.0 cm the aortic valve by the Continuity
equation is calculated at 1.7 cm2. Mild aortic regurgitation.
Echo 12/18/2022:�EF 40-45%, global hypokinesis, moderate cLVH, stage II diastolic dysfunction, mild MS, mild MR, severely dilated LA, moderate with peak/mean gradients 45/20 mmHg, PRECIOUS 1.2 cm2, mild AR, mild TR, estimated PAP 42 mmHg,
Echo 03/16/2023: EF 45-50%, moderate cLVH, global hypokinesis, mild MR, mild to moderate with peak/mean gradients 21/12 mmHg, mild TR, estimated PAP 30-35 mmHg
Plan:
Very difficult volume status and of note creatinine worsened with attempts at IV diuresis
Creatinine has improved to 1.9 and nephrology resumed oral Lasix
Historically, goal-directed medical therapy has been limited by patient preference as well as renal insufficiency
She has declined Jardiance in the past
Reported allergy to KAROLINA inhibitor�unsure of reaction.� Continue hydralazine and might consider consider adding Imdur as an outpatient
Drug rash secondary to ceftriaxone now discontinued on prednisone and Zyrtec
Right arm/shoulder pain xray shows severe rotator cuff arthropathy with a high riding position of the humeral head.� Plan for outpatient orthopedic consult
Discussed with primary service
Stable cardiology status for discharge
We will sign off
Progress Note - Modeling Instructor
Subjective
Date of Service: September 05, 2023
No complaints
Objective
Labs:
09/05/23 07:19
09/05/23 07:19
Labs
Hgb 10.2 g/dL (12.0-16.0) L 09/05/23 07:19
Hct 32.2 % (37.0-47.0) L 09/05/23 07:19
Plt Count 342 10^3/uL (130-400) 09/05/23 07:19
Sodium 137 mmol/L (135-145) 09/05/23 07:19
Potassium 4.8 mmol/L (3.5-5.1) 09/05/23 07:19
BUN 82 mg/dl (7-17) H 09/05/23 07:19
Creatinine 1.9 mg/dL (0.6-1.0) H 09/05/23 07:19
Glucose 78 mg/dl (70-99) 03/09/24 07:19
Vital Signs and I&O:
Vital Signs
Temp Pulse Resp BP Pulse Ox
97.5 F 66 17 149/62 92
09/05/23 11:21 09/05/23 11:21 09/05/23 11:21 09/05/23 11:21 09/05/23 11:21
Vital Signs
Temp Pulse Resp BP Pulse Ox
97.5 F 66 17 149/62 92
09/05/23 11:21 09/05/23 11:21 09/05/23 11:21 09/05/23 11:21 09/05/23 11:21
Intake & Output
09/03/23 09/04/23 09/05/23 09/06/23
06:59 06:59 06:59 07:59
Intake Total 930 / 930 400 / 400 900 / 900
Output Total 300 / 300 250 / 250 450 / 450
Balance 630 / 630 150 / 150 450 / 450
Physical Exam
Physical Exam
General: Well developed, well nourished in NAD.
Neck: Supple, no JVD, HJR, carotids +2 B/L, no bruits bilaterally.
Heart: Non displaced PMI, RRR, no murmurs, No S3, S4, no rubs.
Lungs: Scattered rhonchi
Extremities: Chronic venous stasis.
Skin: Erythematous rash over left chest
Neuro: Grossly nonfocal, awake, alert and oriented x3.
[2023-09-05 11:44] LABS: Glucose - Point of Care 205 mg/dl (70-99)
[2023-09-05] MEDS: LASIX 80 MG PO (12:49)
[2023-09-05] MEDS: THERAGRAN 1 TABLET PO (12:49)
[2023-09-05] MEDS: NOVOLOG FLEXPEN-LOW RESISTANCE 2 UNITS SC (12:49)
[2023-09-05] MEDS: ASPIR LOW (ENTERIC COATED) 81 MG PO (12:49)
[2023-09-05 15:35] VITALS: BP 125/56
[2023-09-05 16:41] LABS: Glucose - Point of Care 125 mg/dl (70-99)
[2023-09-05 19:15] VITALS: BP 125/68
[2023-09-05 20:00] VITALS: BMI 47.0
[2023-09-05] MEDS: LIPITOR 20 MG PO (20:45)
[2023-09-05 21:52] LABS: Glucose - Point of Care 164 mg/dl (70-99)
[2023-09-05 23:08] VITALS: BP 138/96
[2023-09-06 03:37] VITALS: BP 136/62
[2023-09-06 06:06] VITALS: BMI 47.4
[2023-09-06 07:00] VITALS: BP 148/64
[2023-09-06 07:21] LABS: % Basophils 0.8 % (0-2); % Eosinophils 5.1 % (0-6); % Immature Granulocytes 0.7 % (0-0.5); % Lymphocytes 12.6 % (20.5-51.1); % Monocytes 8.2 % (1.7-9.3); % Neutrophils 72.6 % (42.2-75.2); Absolute Basophils 0.1 10^3/uL (0-0.2); Absolute Eosinophils 0.5 10^3/uL (0-0.7); Absolute Immature Granulocytes 0.1 10^3/uL (0-0.05); Absolute Lymphocytes 1.3 10^3/uL (1.2-3.4); Absolute Monocytes 0.8 10^3/uL (0.1-0.6); Absolute Neutrophils 7.4 10^3/uL (1.4-6.5); Hematocrit 32.9 % (37.0-47.0); Hemoglobin 10.6 g/dL (12.0-16.0); Mean Corp Hgb Conc. 32.2 g/dL (33.0-37.0); Mean Corpuscular Hgb 27.3 pg (27.0-31.0); Mean Corpuscular Volume 84.8 fL (81.0-99.0); Mean Platelet Volume 9.1 fL (7.4-10.4); Nucleated Red Blood Cells % 0 %; Platelet Count 296 10^3/uL (130-400); Red Blood Cell Count 3.88 10^6/uL (4.20-5.40); Red Cell Dist. Width 16.6 % (11.5-14.5); White Blood Cell Count 10.2 10^3/uL (4.8-10.8)
[2023-09-06 07:23] LABS: Glucose - Point of Care 86 mg/dl (70-99)
[2023-09-06 07:49] LABS: Blood Urea Nitrogen 86 mg/dl (7-17); Calcium 8.1 mg/dl (8.4-10.2); Carbon Dioxide 35 mmol/L (22-30); Chloride 98 mmol/L (98-107); Estimated Creatinine Clearance 34 ml/min; Glucose 92 mg/dl (70-99); Potassium 4.6 mmol/L (3.5-5.1); Sodium 137 mmol/L (135-145); eGFR 30.32
[2023-09-06] MEDS: ADVAIR HFA 115/21 MCG INHALER 2 PUFF INH ×2 (08:24→20:20)
--- NOTE | 2023-09-06 09:48 | CM ---
Spoke with patient's daughter, David Middleton, #[phone], via phone to discuss discharge planning
Daughter stated that she spoke with her mother about SNF recommendation and mother is agreeable; preferences are #1 [facility] and #2 [facility]. Referrals submitted via [facility]
[2023-09-06] MEDS: NOVOLOG FLEXPEN-LOW RESISTANCE SC ×3 (10:11→17:23)
[2023-09-06] MEDS: MIRALAX 17 GRAMS PO (10:15)
[2023-09-06] MEDS: LASIX 80 MG PO (10:15)
[2023-09-06] MEDS: DAKIN'S SOLUTION 0.125% 1/4 STRENGTH 473 ML TOPICAL (10:16)
[2023-09-06] MEDS: KCL 20 MEQ PO (10:16)
[2023-09-06] MEDS: APRESOLINE 50 MG PO ×2 (10:16→21:15)
[2023-09-06] MEDS: ZYRTEC 10 MG PO (10:16)
[2023-09-06] MEDS: COLACE PO ×3 (10:16→21:20)
[2023-09-06] MEDS: HEPARIN 5000 UNITS SC ×2 (10:18→21:14)
[2023-09-06] MEDS: TOPROL XL 12.5 MG PO (10:18)
[2023-09-06] MEDS: DESENEX/MITRAZOL/ZEASORB 1 APPLIC TOPICAL ×2 (10:18→21:15)
[2023-09-06] MEDS: HYDROCORTISONE 2.5% CREAM 1 APPLIC TOPICAL ×2 (10:19→21:16)
[2023-09-06] MEDS: HYDROPHOR 1 APPLIC TOPICAL (10:19)
--- NOTE | 2023-09-06 10:58 | W.PN.HOSP.TC ---
Today's Communication/Plan
-
Continue current care
Discharge planning
Assessment / Plan
Assessment / Plan
Gen-AAOx3, NAD, morbid obesity
HEENT-NC, AT, anicteric, clear oral mm
Neck-supple
CV-reg, no M, +S1/S2
Lungs-clear B/L
Abd-soft, NT, ND
Ext-severe bilateral lower extremity lymphedema with erythema
Musculoskeletal-no cyanosis, clubbing
Skin-warm and dry, maculopapular rash improving
Neuro-grossly non-focal
Psych-calm, cooperative
ALMA on CKD stage 3B-- due to possible cardiorenal syndrome. Creatinine improving, 1.7 today.
Drug rash - suspect due to ceftriaxone. Now discontinued. Received a brief course of prednisone. Continue Zyrtec.
Acute on chronic systolic CHF with cardiomyopathy and Chronic hypoxic respiratory failure on chronic 2 L nasal cannula--BNP 12304--[place] 2D echo EF 40-45%.
Oral furosemide resumed 09/04. Body weight seems unreliable.
Lower extremity wounds/skin and soft tissue infection -wound culture shows Citrobacter. At this point I will stop further antibiotics given her drug rash. Appreciate wound nurse input. The wounds do not clinically look infected. I question the
culture results as a possible colonization. No systemic signs or symptoms of infection.
Chronic bilateral lower extremity lymphedema -follow-up with the wound care clinic. Weight loss encouraged. Discussed with patient.
Right shoulder severe rotator cuff arthropathy--x-ray of the right shoulder reviewed--will need outpt ortho f/u.
Essential HTN -stable.
DM 2 without hyperglycemia -Continue repaglinide 0.5 mg twice daily blood sugar in the 150. Glucose 92 this morning. Hemoglobin A1c 6.4%. She is on as needed repaglinide at home.
Hyponatremia -sodium improved.
Hyperlipidemia -May continue atorvastatin 20 mg at bedtime
Asthma, mild persistent -resume Advair. Continue as needed levalbuterol. She states she is allergic to albuterol.
Obstructive sleep apnea--Stopped using CPAP several years ago
Right lower extremity DVT October 2019
Morbid obesity due to excess calorie consumption -Weight loss recommended, 1800 diet, fluid restrict
Other PMH:
bilateral buttocks healing stage II pressure ulcer on prior admit--bilateral posterior thighs healing stage II ulcer on prior admit--Consult wound care
DVT prophylaxis--Subcu heparin
Code status Full code
Dispo -will need SNF on discharge. Medically stable for discharge.
Anticipated Discharge: Within 24 hours
Subjective/Interval History
-
Date of Service: September 06, 2023
Patient seen and examined. States her pruritus is improving. No complaints.
Objective Data
-
Labs:
Laboratory Results
09/06/23
06:49
WBC 10.2
Hgb 10.6 L
Hct 32.9 L
Plt Count 296
Sodium 137
Potassium 4.6
Chloride 98
Carbon Dioxide 35 H
BUN 86 H
Creatinine 1.7 H
Glucose 92
Calcium 8.1 L
Vital Signs:
Vital Signs
Temp Pulse Resp BP Pulse Ox
97.5 F 60 18 148/64 94
09/06/23 07:00 09/06/23 08:25 09/06/23 08:25 09/06/23 07:00 09/06/23 08:25
I&O
09/05/23 09/06/23 09/07/23
05:59 06:59 06:59
Intake Total
Output Total
Balance
Review of Systems
-
History Source: Patient
All other systems: Reviewed and negative
[2023-09-06 11:00] VITALS: BP 141/65
--- NOTE | 2023-09-06 11:13 | W.PN.NEPH.PH ---
Today's Communication / Plan
-
- continue oral lasix
Assessment/Plan
-
Assessment:
ALMA on CKD 3 (bl Cr 1.2-1.4)
ADHF (EF 40-45%)
Drug rash
LE wounds
HTN
DLDAsthma
MARIAMA
RLE DVT 2020
morbid obesity
Plan:
ALMA
- differential: cardiorenal vs. AIN in setting of recent abx usage (less likely without peripheral eosinophilia)
- weights are significantly up in the setting of holding lasix and adding on prednisone (salt retention)
- Cr downtrending. current 1.7 (peak 2.0)
- discussed at length with the patient about reinitiating lasix yesterday. she is ok with oral lasix reinitiation today.
- patient is currently denying SOB or worsening LE edema. on 3L NC (bl 2L)
-
-
Date of Service: September 06, 2023
CC / HPI / ROS
-
Chief Complaint:
ALMA on CKD
History of Present Illness:
Cr stabilizing around 2
reinitiated lasix
Review of Systems:
denies SOB but has not gotten out of bed
Labs
-
Labs:
WBC 10.2 10^3/uL (4.8-10.8) 09/06/23 06:49
RBC 3.88 10^6/uL (4.20-5.40) L 09/06/23 06:49
Hgb 10.6 g/dL (12.0-16.0) L 09/06/23 06:49
Hct 32.9 % (37.0-47.0) L 09/06/23 06:49
Plt Count 296 10^3/uL (130-400) 09/06/23 06:49
Sodium 137 mmol/L (135-145) 09/06/23 06:49
Potassium 4.6 mmol/L (3.5-5.1) 09/06/23 06:49
Chloride 98 mmol/L (98-107) 09/06/23 06:49
Carbon Dioxide 35 mmol/L (22-30) H 09/06/23 06:49
BUN 86 mg/dl (7-17) H 09/06/23 06:49
Creatinine 1.7 mg/dL (0.6-1.0) H 09/06/23 06:49
eGFR 30.32 09/06/23 06:49
Glucose 92 mg/dl (70-99) 09/06/23 06:49
Calcium 8.1 mg/dl (8.4-10.2) L 09/06/23 06:49
Aet-V-Fpfooalabng Pept 90066 pg/ml 09/05/23 07:19
Albumin 2.7 g/dl (3.5-5.0) L 08/31/23 06:07
Physical Exam
-
Vital Signs:
Vital Signs
Temp Pulse Resp BP Pulse Ox
97.5 F 60 18 148/64 94
09/06/23 07:00 09/06/23 08:25 09/06/23 08:25 09/06/23 07:00 09/06/23 08:25
Cardiovascular:: Regular rate and rhythm
Respiratory:: Bilateral: Coarse
Lung Excursion:: Normal
Abdomen:: Nontender and Soft
Bowel Sounds:: Normal
Extremity Edema:: +2: Bilateral:
Loja Catheter: No
[2023-09-06 11:52] LABS: Glucose - Point of Care 108 mg/dl (70-99)
[2023-09-06] MEDS: ASPIR LOW (ENTERIC COATED) 81 MG PO (14:42)
[2023-09-06] MEDS: THERAGRAN 1 TABLET PO (14:42)
[2023-09-06 15:00] VITALS: BP 145/74
[2023-09-06 17:11] LABS: Glucose - Point of Care 134 mg/dl (70-99)
[2023-09-06] MEDS: XOPENEX HFA 45 MCG INHALER 2 PUFF INH (20:20)
[2023-09-06 20:34] VITALS: BP 136/57
[2023-09-06] MEDS: LIPITOR 20 MG PO ×2 (21:14→21:15)
[2023-09-06 22:14] LABS: Glucose - Point of Care 158 mg/dl (70-99)
[2023-09-06 23:16] VITALS: BP 124/61
[2023-09-07 01:31] VITALS: BMI 47.4
[2023-09-07 03:36] VITALS: BP 120/60
[2023-09-07 06:00] VITALS: BMI 45.2
[2023-09-07 07:55] LABS: Blood Urea Nitrogen 79 mg/dl (7-17); Carbon Dioxide 34 mmol/L (22-30); Chloride 100 mmol/L (98-107); Estimated Creatinine Clearance 34 ml/min; Glucose 95 mg/dl (70-99); Potassium 4.8 mmol/L (3.5-5.1); Sodium 136 mmol/L (135-145); eGFR 30.32
[2023-09-07] MEDS: ADVAIR HFA 115/21 MCG INHALER 2 PUFF INH ×2 (08:00→19:21)
[2023-09-07 08:03] VITALS: BP 139/59
[2023-09-07 08:17] LABS: Glucose - Point of Care 114 mg/dl (70-99)
[2023-09-07] MEDS: MIRALAX PO ×2 (08:28→08:34)
[2023-09-07] MEDS: HEPARIN 5000 UNITS SC ×2 (08:28→20:21)
[2023-09-07] MEDS: LASIX 80 MG PO (08:29)
[2023-09-07] MEDS: APRESOLINE 50 MG PO ×2 (08:29→20:24)
[2023-09-07] MEDS: ZYRTEC 10 MG PO (08:29)
[2023-09-07] MEDS: TOPROL XL 12.5 MG PO (08:29)
[2023-09-07] MEDS: NOVOLOG FLEXPEN-LOW RESISTANCE SC (08:29)
[2023-09-07] MEDS: COLACE PO ×3 (08:29→20:20)
[2023-09-07] MEDS: KCL 20 MEQ PO (08:29)
--- NOTE | 2023-09-07 08:47 | W.PN.HOSP.TC ---
Today's Communication/Plan
-
Continue oral Lasix. Monitor renal function. Discharge planning in progress
Assessment / Plan
Assessment / Plan
Gen-AAOx3, NAD, morbid obesity
HEENT-NC, AT, anicteric, clear oral mm
Neck-supple
CV-reg, no M, +S1/S2
Lungs-clear B/L
Abd-soft, NT, ND
Ext-severe bilateral lower extremity lymphedema with erythema
Musculoskeletal-no cyanosis, clubbing
Skin-warm and dry, maculopapular rash improving
Neuro-grossly non-focal
Psych-calm, cooperative
A/P:
ALMA on CKD stage 3B-- due to possible cardiorenal syndrome. Creatinine improving, 1.7 today.
Drug rash - suspect due to ceftriaxone. Now discontinued. Received a brief course of prednisone. Continue Zyrtec.
Acute on chronic systolic CHF with cardiomyopathy and Chronic hypoxic respiratory failure on chronic 2 L nasal cannula--BNP 26137--Ekdrdd 2D echo EF 40-45%.
Oral furosemide resumed 09/04. Body weight seems unreliable.
Lower extremity wounds/skin and soft tissue infection -wound culture shows Citrobacter. Dr Barton stopped further antibiotics given her drug rash. Appreciate wound nurse input. The wounds do not clinically look infected. Dr Barton questioned
the culture results as a possible colonization. No systemic signs or symptoms of infection.
Chronic bilateral lower extremity lymphedema -follow-up with the wound care clinic. Weight loss encouraged. Discussed with patient.
Right shoulder severe rotator cuff arthropathy--x-ray of the right shoulder reviewed--will need outpt ortho f/u.
Essential HTN -stable.
DM 2 without hyperglycemia -Continue repaglinide 0.5 mg twice daily blood sugar in the 150. Glucose 92 this morning. Hemoglobin A1c 6.4%. She is on as needed repaglinide at home.
Hyponatremia -sodium improved.
Hyperlipidemia -May continue atorvastatin 20 mg at bedtime
Asthma, mild persistent -resume Advair. Continue as needed levalbuterol. She states she is allergic to albuterol.
Obstructive sleep apnea--Stopped using CPAP several years ago
Right lower extremity DVT October 2019
Morbid obesity due to excess calorie consumption -Weight loss recommended, 1800 diet, fluid restrict
Other PMH:
bilateral buttocks healing stage II pressure ulcer on prior admit--bilateral posterior thighs healing stage II ulcer on prior admit--Consult wound care
DVT prophylaxis--Subcu heparin
Code status Full code
Dispo -will need SNF on discharge. Medically stable for discharge.
Anticipated Discharge: Today
Subjective/Interval History
-
Date of Service: September 07, 2023
Patient denies any worsening shortness of breath. She has peripheral edema. She is on supplemental oxygen.
Objective Data
-
Labs:
Laboratory Results
09/07/23
06:35
Sodium 136
Potassium 4.8
Chloride 100
Carbon Dioxide 34 H
BUN 79 H
Creatinine 1.7 H
Glucose 95
Calcium 8.0 L
Vital Signs:
Vital Signs
Temp Pulse Resp BP Pulse Ox
97.7 F 68 18 139/59 93
09/07/23 08:03 09/07/23 08:03 09/07/23 08:03 09/07/23 08:03 09/07/23 08:03
I&O
09/06/23 09/07/23 09/08/23
06:59 06:59 06:59
Intake Total 1380 / 1380
Output Total 850 / 850
Balance 530 / 530
Review of Systems
-
All other systems: Reviewed and negative
[2023-09-07] MEDS: DESENEX/MITRAZOL/ZEASORB 1 APPLIC TOPICAL ×2 (11:12→20:22)
[2023-09-07] MEDS: HYDROCORTISONE 2.5% CREAM 1 APPLIC TOPICAL ×2 (11:12→20:22)
[2023-09-07] MEDS: HYDROPHOR 1 APPLIC TOPICAL (11:20)
[2023-09-07] MEDS: DAKIN'S SOLUTION 0.125% 1/4 STRENGTH 473 ML TOPICAL (11:21)
[2023-09-07 11:29] VITALS: BP 169/90
[2023-09-07 11:54] LABS: Glucose - Point of Care 239 mg/dl (70-99)
[2023-09-07] MEDS: ASPIR LOW (ENTERIC COATED) 81 MG PO (12:45)
[2023-09-07] MEDS: THERAGRAN 1 TABLET PO (12:45)
[2023-09-07] MEDS: NOVOLOG FLEXPEN-LOW RESISTANCE 2 UNITS SC (12:58)
--- NOTE | 2023-09-07 14:28 | W.PN.NEPH.PH ---
Today's Communication / Plan
-
follow labs
cont po lasix
Assessment/Plan
-
Assessment:
ALMA on CKD 3 (bl Cr 1.2-1.4)
ADHF (EF 40-45%)
Drug rash
LE wounds
HTN
DLDAsthma
MARIAMA
RLE DVT 2019
morbid obesity
Plan:
ALMA
- differential: cardiorenal vs. AIN in setting of recent abx usage (less likely without peripheral eosinophilia)
- weights are improving back on home lasix 80mg daily
Cr stable 1.7 (peak 2.0)
bp are stable
labs in am
-
-
Date of Service: September 07, 2023
CC / HPI / ROS
-
Chief Complaint:
ALMA on CKD
History of Present Illness:
Cr stabilizing around 1.7
reinitiated lasix 09/04
Review of Systems:
denies SOB but has not gotten out of bed
chr O2 NC
no CP
Labs
-
Labs:
WBC 10.2 10^3/uL (4.8-10.8) 09/06/23 06:49
RBC 3.88 10^6/uL (4.20-5.40) L 09/06/23 06:49
Hgb 10.6 g/dL (12.0-16.0) L 09/06/23 06:49
Hct 32.9 % (37.0-47.0) L 09/06/23 06:49
Plt Count 296 10^3/uL (130-400) 09/06/23 06:49
Sodium 136 mmol/L (135-145) 09/07/23 06:35
Potassium 4.8 mmol/L (3.5-5.1) 09/07/23 06:35
Chloride 100 mmol/L (98-107) 09/07/23 06:35
Carbon Dioxide 34 mmol/L (22-30) H 09/07/23 06:35
BUN 79 mg/dl (7-17) H 09/07/23 06:35
Creatinine 1.7 mg/dL (0.6-1.0) H 09/07/23 06:35
eGFR 30.32 09/07/23 06:35
Glucose 95 mg/dl (70-99) 09/07/23 06:35
Calcium 8.0 mg/dl (8.4-10.2) L 09/07/23 06:35
Kht-C-Pyxfkmbsgso Pept 25725 pg/ml 09/05/23 07:19
Albumin 2.7 g/dl (3.5-5.0) L 08/31/23 06:07
Physical Exam
-
Vital Signs:
Vital Signs
Temp Pulse Resp BP Pulse Ox
98.4 F 69 20 169/90 91
09/07/23 11:29 09/07/23 11:29 09/07/23 11:29 09/07/23 11:29 09/07/23 11:29
Cardiovascular:: Regular rate and rhythm
Lung Excursion:: Normal (decreased)
Abdomen:: Nontender and Soft
Extremity Edema:: +2: Bilateral:
Loja Catheter: No
[2023-09-07 15:01] VITALS: BP 142/78
[2023-09-07 16:39] LABS: Glucose - Point of Care 179 mg/dl (70-99)
[2023-09-07] MEDS: NOVOLOG FLEXPEN-LOW RESISTANCE 1 UNITS SC (17:02)
[2023-09-07 19:00] VITALS: BP 141/50
[2023-09-07 22:52] LABS: Glucose - Point of Care 159 mg/dl (70-99)
[2023-09-07 23:23] VITALS: BP 126/59
[2023-09-08 01:00] VITALS: BMI 45.2
[2023-09-08 03:00] VITALS: BP 153/68
[2023-09-08 04:32] VITALS: BMI 47.1
[2023-09-08 07:12] LABS: Blood Urea Nitrogen 76 mg/dl (7-17); Calcium 8.3 mg/dl (8.4-10.2); Carbon Dioxide 35 mmol/L (22-30); Chloride 97 mmol/L (98-107); Estimated Creatinine Clearance 37 ml/min; Glucose 103 mg/dl (70-99); Potassium 4.5 mmol/L (3.5-5.1); Sodium 139 mmol/L (135-145)
[2023-09-08] MEDS: ADVAIR HFA 115/21 MCG INHALER 2 PUFF INH ×2 (07:40→19:52)
--- NOTE | 2023-09-08 07:53 | W.PN.HOSP.TC ---
Today's Communication/Plan
-
Continue oral diuretics. Discharge planning in progress.
Assessment / Plan
Assessment / Plan
Gen-AAOx3, NAD, morbid obesity
HEENT-NC, AT, anicteric, clear oral mm
Neck-supple
CV-reg, no M, +S1/S2
Lungs-clear B/L
Abd-soft, NT, ND
Ext-severe bilateral lower extremity lymphedema with erythema
Musculoskeletal-no cyanosis, clubbing
Skin-warm and dry, maculopapular rash improving
Neuro-grossly non-focal
Psych-calm, cooperative
A/P:
ALMA on CKD stage 3B-- due to possible cardiorenal syndrome. Creatinine improving, 1.6 today.
Drug rash - suspect due to ceftriaxone. Now discontinued. Received a brief course of prednisone. Continue Zyrtec.
Acute on chronic systolic CHF with cardiomyopathy and Chronic hypoxic respiratory failure on chronic 2 L nasal cannula--BNP 18802--Vwjxgt 2D echo EF 40-45%.
Oral furosemide resumed 09/04. Body weight seems unreliable.
Lower extremity wounds/skin and soft tissue infection -wound culture shows Citrobacter. Dr Barton stopped further antibiotics given her drug rash. Appreciate wound nurse input. The wounds do not clinically look infected. Dr Barton questioned
the culture results as a possible colonization. No systemic signs or symptoms of infection.
Chronic bilateral lower extremity lymphedema -follow-up with the wound care clinic. Weight loss encouraged. Discussed with patient.
Right shoulder severe rotator cuff arthropathy--x-ray of the right shoulder reviewed--will need outpt ortho f/u.
Essential HTN -stable.
DM 2 without hyperglycemia -Continue repaglinide 0.5 mg twice daily blood sugar in the 150. Glucose 92 this morning. Hemoglobin A1c 6.4%. She is on as needed repaglinide at home.
Hyponatremia -sodium improved.
Hyperlipidemia -May continue atorvastatin 20 mg at bedtime
Asthma, mild persistent -resume Advair. Continue as needed levalbuterol. She states she is allergic to albuterol.
Obstructive sleep apnea--Stopped using CPAP several years ago
Right lower extremity DVT October 2019
Morbid obesity due to excess calorie consumption -Weight loss recommended, 1800 diet, fluid restrict
Other PMH:
bilateral buttocks healing stage II pressure ulcer on prior admit--bilateral posterior thighs healing stage II ulcer on prior admit--Consult wound care
DVT prophylaxis--Subcu heparin
Code status Full code
Dispo -will need SNF on discharge. Medically stable for discharge.
Anticipated Discharge: Today
Subjective/Interval History
-
Date of Service: September 08, 2023
Less shortness of breath. She initially felt her legs were more swollen but actually they are stable. No chest pain
Objective Data
-
Labs:
Laboratory Results
09/08/23
06:17
Sodium 139
Potassium 4.5
Chloride 97 L
Carbon Dioxide 35 H
BUN 76 H
Creatinine 1.6 H
Glucose 103 H
Calcium 8.3 L
Vital Signs:
Vital Signs
Temp Pulse Resp BP Pulse Ox
98.0 F 50 18 153/68 97
09/08/23 03:00 09/08/23 07:43 09/08/23 07:43 09/08/23 03:00 09/08/23 07:43
I&O
09/07/23 09/08/23 09/09/23
06:59 06:59 06:59
Intake Total 1380 / 1380 1230 / 1230
Output Total 850 / 850 1150 / 1150
Balance 530 / 530 80 / 80
Review of Systems
-
All other systems: Reviewed and negative
[2023-09-08 07:54] VITALS: BP 149/62
[2023-09-08 08:11] LABS: Glucose - Point of Care 128 mg/dl (70-99)
[2023-09-08] MEDS: NOVOLOG FLEXPEN-LOW RESISTANCE SC ×2 (08:36→16:55)
[2023-09-08] MEDS: KCL 20 MEQ PO (08:57)
[2023-09-08] MEDS: LASIX 80 MG PO (08:57)
[2023-09-08] MEDS: APRESOLINE 50 MG PO ×2 (08:57→19:48)
[2023-09-08] MEDS: ZYRTEC 10 MG PO (08:57)
[2023-09-08] MEDS: HEPARIN 5000 UNITS SC ×2 (08:58→19:48)
[2023-09-08] MEDS: DAKIN'S SOLUTION 0.125% 1/4 STRENGTH 50 ML TOPICAL (08:58)
[2023-09-08] MEDS: DESENEX/MITRAZOL/ZEASORB 1 APPLIC TOPICAL ×2 (08:58→19:49)
[2023-09-08] MEDS: HYDROCORTISONE 2.5% CREAM 1 APPLIC TOPICAL ×2 (08:59→19:49)
[2023-09-08] MEDS: HYDROPHOR 1 APPLIC TOPICAL (08:59)
[2023-09-08] MEDS: MIRALAX PO (09:06)
[2023-09-08] MEDS: TOPROL XL 12.5 MG PO (09:06)
[2023-09-08] MEDS: COLACE PO ×2 (09:06→19:47)
[2023-09-08 11:08] VITALS: BP 152/57
[2023-09-08 11:45] LABS: Glucose - Point of Care 192 mg/dl (70-99)
[2023-09-08] MEDS: NOVOLOG FLEXPEN-LOW RESISTANCE 1 UNITS SC (11:54)
[2023-09-08] MEDS: THERAGRAN 1 TABLET PO (11:57)
[2023-09-08] MEDS: ASPIR LOW (ENTERIC COATED) 81 MG PO (11:57)
[2023-09-08 12:38] VITALS: BP 152/57; PULSE 77; O2SAT 96
--- NOTE | 2023-09-08 13:24 | CM ---
Reviewed chart, [facility]. [facility] can accept. Placed a call to admissions at [facility] and spoke with Farzana who confirmed acceptance and bed availability for patient. Placed a call to patient's daughter to update but had to leave a voice
mail message.
Met with patient to update. She is agreeable to plan.
Plan: Case management will continue to follow and assist with discharge planning. Patient will transfer to [facility] when stable.
[2023-09-08] MEDS: TYLENOL 650 MG PO (13:30)
[2023-09-08 15:22] VITALS: BP 143/65
--- NOTE | 2023-09-08 15:28 | W.PN.NEPH.PH ---
Today's Communication / Plan
-
cont po lasix
d/c plan
Assessment/Plan
-
Assessment:
ALMA on CKD 3 (bl Cr 1.2-1.4)
ADHF (EF 40-45%)
Drug rash
LE wounds
HTN
DLDAsthma
MARIAMA
RLE DVT 2019
morbid obesity
Plan:
ALMA
- differential: cardiorenal vs. AIN in setting of recent abx usage (less likely without peripheral eosinophilia)
- weights are not accurate
cont on home lasix 80mg daily
Cr better at 1.6 (peak 2.0)
bp are stable
labs in am
-
-
Date of Service: September 08, 2023
CC / HPI / ROS
-
Chief Complaint:
ALMA on CKD
History of Present Illness:
Cr stabilizing around 1.6
reinitiated lasix 09/04
BP stable
wts not accurate on bedscale
non oliguric with out nolen
Review of Systems:
denies SOB , no cp
chr O2 NC
feels well
Labs
-
Labs:
WBC 10.2 10^3/uL (4.8-10.8) 09/06/23 06:49
RBC 3.88 10^6/uL (4.20-5.40) L 09/06/23 06:49
Hgb 10.6 g/dL (12.0-16.0) L 09/06/23 06:49
Hct 32.9 % (37.0-47.0) L 09/06/23 06:49
Plt Count 296 10^3/uL (130-400) 09/06/23 06:49
Sodium 139 mmol/L (135-145) 03/12/24 06:17
Potassium 4.5 mmol/L (3.5-5.1) 09/08/23 06:17
Chloride 97 mmol/L (98-107) L 09/08/23 06:17
Carbon Dioxide 35 mmol/L (22-30) H 09/08/23 06:17
BUN 76 mg/dl (7-17) H 09/08/23 06:17
Creatinine 1.6 mg/dL (0.6-1.0) H 09/08/23 06:17
eGFR 32.60 09/08/23 06:17
Glucose 103 mg/dl (70-99) H 09/08/23 06:17
Calcium 8.3 mg/dl (8.4-10.2) L 09/08/23 06:17
Kyz-F-Hsyeaxwsduy Pept 47541 pg/ml 09/05/23 07:19
Albumin 2.7 g/dl (3.5-5.0) L 08/31/23 06:07
Physical Exam
-
Vital Signs:
Vital Signs
Temp Pulse Resp BP Pulse Ox
98.1 F 70 22 143/65 96
09/08/23 15:22 09/08/23 15:22 09/08/23 15:22 09/08/23 15:22 09/08/23 15:22
Cardiovascular:: Regular rate and rhythm
Lung Excursion:: Normal (decreased BS)
Abdomen:: Nontender and Soft
Extremity Edema:: +2: Bilateral: (chronic skin changes)
Nolen Catheter: No
[2023-09-08 16:54] LABS: Glucose - Point of Care 144 mg/dl (70-99)
[2023-09-08] MEDS: LIPITOR 20 MG PO (19:48)
[2023-09-08 21:43] LABS: Glucose - Point of Care 144 mg/dl (70-99)
[2023-09-08 23:08] VITALS: BP 139/65
[2023-09-09 01:00] VITALS: BMI 44.4
[2023-09-09 05:33] VITALS: BMI 44.4
[2023-09-09 07:15] VITALS: BP 114/41
[2023-09-09 07:44] LABS: Blood Urea Nitrogen 65 mg/dl (7-17); Calcium 7.9 mg/dl (8.4-10.2); Carbon Dioxide 33 mmol/L (22-30); Chloride 102 mmol/L (98-107); Estimated Creatinine Clearance 35 ml/min; Glucose 90 mg/dl (70-99); Potassium 4.6 mmol/L (3.5-5.1); Sodium 138 mmol/L (135-145)
[2023-09-09 07:46] LABS: Glucose - Point of Care 164 mg/dl (70-99)
[2023-09-09] MEDS: APRESOLINE 50 MG PO ×2 (08:21→21:07)
[2023-09-09] MEDS: KCL 20 MEQ PO (08:22)
[2023-09-09] MEDS: ZYRTEC 10 MG PO (08:22)
[2023-09-09] MEDS: LASIX 80 MG PO (08:22)
[2023-09-09] MEDS: TOPROL XL 12.5 MG PO (08:22)
[2023-09-09] MEDS: NOVOLOG FLEXPEN-LOW RESISTANCE 1 UNITS SC (08:23)
[2023-09-09] MEDS: HEPARIN 5000 UNITS SC ×2 (08:24→21:07)
[2023-09-09] MEDS: DESENEX/MITRAZOL/ZEASORB 1 APPLIC TOPICAL ×2 (08:24→21:07)
[2023-09-09] MEDS: COLACE PO ×2 (08:24→21:07)
[2023-09-09] MEDS: DAKIN'S SOLUTION 0.125% 1/4 STRENGTH 100 ML TOPICAL (08:24)
[2023-09-09] MEDS: HYDROCORTISONE 2.5% CREAM 1 APPLIC TOPICAL ×2 (08:25→21:08)
[2023-09-09] MEDS: MIRALAX PO (08:26)
[2023-09-09] MEDS: HYDROPHOR 1 APPLIC TOPICAL (08:26)
--- NOTE | 2023-09-09 08:35 | W.PN.HOSP.TC ---
Today's Communication/Plan
-
Continue current management. Discharge planning
Assessment / Plan
Assessment / Plan
Gen-AAOx3, NAD, morbid obesity
HEENT-NC, AT, anicteric, clear oral mm
Neck-supple
CV-reg, no M, +S1/S2
Lungs-clear B/L
Abd-soft, NT, ND
Ext-severe bilateral lower extremity lymphedema with erythema and now wrapped up.
Musculoskeletal-no cyanosis, clubbing
Skin-warm and dry, maculopapular rash improving
Neuro-grossly non-focal
Psych-calm, cooperative
A/P:
ALMA on CKD stage 3B-- due to possible cardiorenal syndrome. Creatinine improving, 1.6 today. Updated daughter over the phone today.
Chronic hypoxic respiratory failure-continue oxygen supplementation
Drug rash - suspect due to ceftriaxone. Now discontinued. Received a brief course of prednisone. Continue Zyrtec.
Acute on chronic systolic CHF with cardiomyopathy and Chronic hypoxic respiratory failure on chronic 2 L nasal cannula--BNP 24741--[place] 2D echo EF 40-45%.
Oral furosemide resumed 09/04. Body weight seems unreliable.
Lower extremity wounds/skin and soft tissue infection -wound culture shows Citrobacter. Dr Barton stopped further antibiotics given her drug rash. Appreciate wound nurse input. The wounds do not clinically look infected. Dr Barton questioned
the culture results as a possible colonization. No systemic signs or symptoms of infection.
Chronic bilateral lower extremity lymphedema -follow-up with the wound care clinic. Weight loss encouraged. Discussed with patient.
Right shoulder severe rotator cuff arthropathy--x-ray of the right shoulder reviewed--will need outpt ortho f/u.
Essential HTN -stable.
DM 2 without hyperglycemia -Continue repaglinide 0.5 mg twice daily blood sugar in the 150. Glucose 92 this morning. Hemoglobin A1c 6.4%. She is on as needed repaglinide at home.
Hyponatremia -sodium improved.
Hyperlipidemia -May continue atorvastatin 20 mg at bedtime
Asthma, mild persistent -resume Advair. Continue as needed levalbuterol. She states she is allergic to albuterol.
Obstructive sleep apnea--Stopped using CPAP several years ago
Right lower extremity DVT October 2019
Morbid obesity due to excess calorie consumption -Weight loss recommended, 1800 diet, fluid restrict
Other PMH:
bilateral buttocks healing stage II pressure ulcer on prior admit--bilateral posterior thighs healing stage II ulcer on prior admit--Consult wound care
DVT prophylaxis--Subcu heparin
Code status Full code
Dispo -will need SNF on discharge. Medically stable for discharge.
Anticipated Discharge: Today
Subjective/Interval History
-
Date of Service: September 09, 2023
Patient denies any shortness of breath or chest pain. Remains afebrile
Objective Data
-
Labs:
Laboratory Results
09/09/23
06:28
Sodium 138
Potassium 4.6
Chloride 102
Carbon Dioxide 33 H
BUN 65 H
Creatinine 1.6 H
Glucose 90
Calcium 7.9 L
Vital Signs:
Vital Signs
Temp Pulse Resp BP Pulse Ox
97.7 F 68 20 114/41 97
09/09/23 07:15 09/09/23 08:22 09/09/23 07:15 09/09/23 08:22 09/09/23 07:15
I&O
09/08/23 09/09/23 09/10/23
06:59 06:59 06:59
Intake Total 1230 / 1230 680 / 680
Output Total 1150 / 1150 500 / 500
Balance 80 / 80 180 / 180
[2023-09-09] MEDS: ADVAIR HFA 115/21 MCG INHALER 2 PUFF INH ×2 (09:26→20:10)
--- NOTE | 2023-09-09 10:37 | WOUNDNOTE ---
R LATERAL LOWER LEG
--- NOTE | 2023-09-09 10:38 | WOUNDNOTE ---
L MEDIAL LOWER LEG
--- NOTE | 2023-09-09 10:38 | WOUNDNOTE ---
L LATERAL LOWER LEG
--- NOTE | 2023-09-09 10:39 | WOUNDNOTE ---
R LOWER LEG AND HEEL
--- NOTE | 2023-09-09 10:41 | WOUNDNOTE ---
WON RN NOTE: Dressings changed on legs, wounds much improved. Now with small venous ulcer on R lateral leg and L lateral leg, drainage scant serous and no odor. Less edema in legs, dark chronic staining remains, less dry peeling skin. + palpable
pedal pulses. L lateral heel wound has healed along with buttocks, left open to air. Moisturized legs and feet with mineral oil, dry dressing applied to wounds. Shilo wraps re applied B/L forefoot to below knee, pillow placed under calves. Patient
able to turn with minimal assist, gets oob to chair, mild SOB upon exertion. Encouraged leg elevation when sitting. Patient states daughter does wound care at home and she uses own compression Velcro wraps. Patient for discharge to [facility] when
stable. Continue local wound care with dry dressing and shilo wraps to legs. Will update care plan and discharge instructions.
[2023-09-09] MEDS: THERAGRAN 1 TABLET PO (11:25)
[2023-09-09] MEDS: ASPIR LOW (ENTERIC COATED) 81 MG PO (11:25)
--- NOTE | 2023-09-09 11:41 | W.PN.NEPH.PH ---
Today's Communication / Plan
-
- for d/c today
Assessment/Plan
-
Assessment:
ALMA on CKD 3 (bl Cr 1.2-1.4)
ADHF (EF 40-45%)
Drug rash
LE wounds
HTN
DLDAsthma
MARIAMA
RLE DVT 2019
morbid obesity
Plan:
ALMA
- differential: cardiorenal vs. AIN in setting of recent abx usage (less likely without peripheral eosinophilia)
- weights are not accurate
- cont on home lasix 80mg daily
- Cr better at 1.6 (peak 2.0)
- bp are stable
Likely for discharge later.
Please obtain labs post discharge in 4 weeks to ensure Cr is stable
-
-
Date of Service: September 09, 2023
CC / HPI / ROS
-
Chief Complaint:
ALMA on CKD
History of Present Illness:
Cr stabilizing around 1.6
reinitiated lasix 09/04
BP stable
wts not accurate on bedscale
non oliguric with out nolen
Review of Systems:
denies SOB , no cp
chr O2 NC
feels well
Labs
-
Labs:
WBC 10.2 10^3/uL (4.8-10.8) 09/06/23 06:49
RBC 3.88 10^6/uL (4.20-5.40) L 09/06/23 06:49
Hgb 10.6 g/dL (12.0-16.0) L 09/06/23 06:49
Hct 32.9 % (37.0-47.0) L 09/06/23 06:49
Plt Count 296 10^3/uL (130-400) 09/06/23 06:49
Sodium 138 mmol/L (135-145) 09/09/23 06:28
Potassium 4.6 mmol/L (3.5-5.1) 09/09/23 06:28
Chloride 102 mmol/L (98-107) 09/09/23 06:28
Carbon Dioxide 33 mmol/L (22-30) H 09/09/23 06:28
BUN 65 mg/dl (7-17) H 09/09/23 06:28
Creatinine 1.6 mg/dL (0.6-1.0) H 09/09/23 06:28
eGFR 32.60 09/09/23 06:28
Glucose 90 mg/dl (70-99) 09/09/23 06:28
Calcium 7.9 mg/dl (8.4-10.2) L 09/09/23 06:28
Xrl-K-Pvebnklessh Pept 53261 pg/ml 09/05/23 07:19
Albumin 2.7 g/dl (3.5-5.0) L 08/31/23 06:07
Physical Exam
-
Vital Signs:
Vital Signs
Temp Pulse Resp BP Pulse Ox
97.7 F 66 18 114/41 99
09/09/23 07:15 09/09/23 09:28 09/09/23 09:28 09/09/23 08:22 09/09/23 09:28
Cardiovascular:: Regular rate and rhythm
Respiratory:: Bilateral: Coarse
Lung Excursion:: Normal
Abdomen:: Nontender and Soft
Bowel Sounds:: Normal
Extremity Edema:: +2: Bilateral:
Nolen Catheter: No
[2023-09-09 11:44] LABS: Glucose - Point of Care 137 mg/dl (70-99)
[2023-09-09] MEDS: NOVOLOG FLEXPEN-LOW RESISTANCE SC (12:05)
--- NOTE | 2023-09-09 13:41 | CM ---
Addendum entered by DESIRE Gonzales 09/09/23 15:00:
Received call from Christi in admissions at [facility] who stated that she would not be able to offer a bed until tomorrow. Attending updated. Request was made to him for a Covid test as facility requested. [facility] arranging transportation
for tomorrow.
Original Note:
Received call from patient's daughter, who stated that she wanted to reinforce that she wants patient at rehab for short term only. Patient's daughter was reassured that referral was sent for short term. Received notification of discharge. Placed a
call to Christi in admissions at [facility] to confirm acceptance for today. Had to leave a voice mail. Requested return call back to obtain number for fax and report.
Plan: Case management will continue to follow and assist with discharge planning. [facility].
[2023-09-09 15:20] VITALS: BP 102/68
[2023-09-09 17:05] LABS: Glucose - Point of Care 269 mg/dl (70-99)
[2023-09-09] MEDS: NOVOLOG FLEXPEN-LOW RESISTANCE 3 UNITS SC (17:35)
[2023-09-09] MEDS: LIPITOR 20 MG PO (21:07)
[2023-09-09 21:48] LABS: Glucose - Point of Care 153 mg/dl (70-99)
[2023-09-09 23:10] VITALS: BP 142/59
[2023-09-10 01:00] VITALS: BMI 44.4
[2023-09-10 06:00] VITALS: BMI 44.4
[2023-09-10 06:22] LABS: COVID-19 Antigen Negative (Negative)
[2023-09-10 07:00] VITALS: BP 138/72
[2023-09-10 08:00] LABS: Glucose - Point of Care 99 mg/dl (70-99)
[2023-09-10] MEDS: ADVAIR HFA 115/21 MCG INHALER 2 PUFF INH (08:12)
[2023-09-10] MEDS: MIRALAX PO (08:15)
[2023-09-10] MEDS: COLACE PO (08:16)
[2023-09-10] MEDS: TOPROL XL 12.5 MG PO (08:16)
[2023-09-10] MEDS: NOVOLOG FLEXPEN-LOW RESISTANCE SC (08:16)
[2023-09-10] MEDS: LASIX 80 MG PO (08:16)
[2023-09-10] MEDS: APRESOLINE 50 MG PO (08:16)
[2023-09-10] MEDS: KCL 20 MEQ PO (08:17)
[2023-09-10] MEDS: HEPARIN 5000 UNITS SC (08:17)
[2023-09-10] MEDS: ZYRTEC 10 MG PO (08:17)
[2023-09-10] MEDS: DESENEX/MITRAZOL/ZEASORB 1 APPLIC TOPICAL (08:18)
[2023-09-10] MEDS: HYDROPHOR 1 APPLIC TOPICAL (08:18)
[2023-09-10] MEDS: HYDROCORTISONE 2.5% CREAM 1 APPLIC TOPICAL (08:19)
--- NOTE | 2023-09-10 08:41 | W.PN.HOSP.TC ---
Today's Communication/Plan
-
Continue current management. Discharge planning in progress
Assessment / Plan
Assessment / Plan
Gen-AAOx3, NAD, morbid obesity
HEENT-NC, AT, anicteric, clear oral mm
Neck-supple
CV-reg, no M, +S1/S2
Lungs-clear B/L
Abd-soft, NT, ND
Ext-severe bilateral lower extremity lymphedema with erythema and now wrapped up.
Musculoskeletal-no cyanosis, clubbing
Skin-warm and dry, maculopapular rash improving
Neuro-grossly non-focal
Psych-calm, cooperative
A/P:
ALMA on CKD stage 3B-- due to possible cardiorenal syndrome. Creatinine improving, 1.6 yesterday. Updated daughter over the phone yesterday.
Chronic hypoxic respiratory failure-continue oxygen supplementation
Drug rash - suspect due to ceftriaxone. Now discontinued. Received a brief course of prednisone. Continue Zyrtec.
Acute on chronic systolic CHF with cardiomyopathy and Chronic hypoxic respiratory failure on chronic 2 L nasal cannula--BNP 66097--Ldpmnn 2D echo EF 40-45%.
Oral furosemide resumed 09/04. Body weight seems unreliable.
Lower extremity wounds/skin and soft tissue infection -wound culture shows Citrobacter. Dr Barton stopped further antibiotics given her drug rash. Appreciate wound nurse input. The wounds do not clinically look infected. Dr Barton questioned
the culture results as a possible colonization. No systemic signs or symptoms of infection.
Chronic bilateral lower extremity lymphedema -follow-up with the wound care clinic. Weight loss encouraged. Discussed with patient.
Right shoulder severe rotator cuff arthropathy--x-ray of the right shoulder reviewed--will need outpt ortho f/u.
Essential HTN -stable.
DM 2 without hyperglycemia -Continue repaglinide 0.5 mg twice daily blood sugar in the 150. Glucose 92 this morning. Hemoglobin A1c 6.4%. She is on as needed repaglinide at home.
Hyponatremia -sodium improved.
Hyperlipidemia -May continue atorvastatin 20 mg at bedtime
Asthma, mild persistent -resume Advair. Continue as needed levalbuterol. She states she is allergic to albuterol.
Obstructive sleep apnea--Stopped using CPAP several years ago
Right lower extremity DVT October 2019
Morbid obesity due to excess calorie consumption -Weight loss recommended, 1800 diet, fluid restrict
Other PMH:
bilateral buttocks healing stage II pressure ulcer on prior admit--bilateral posterior thighs healing stage II ulcer on prior admit--Consult wound care
DVT prophylaxis--Subcu heparin
Code status Full code
Dispo -will need SNF on discharge. Medically stable for discharge.
Anticipated Discharge: Today
Subjective/Interval History
-
Date of Service: September 10, 2023
No new complaints.
Objective Data
-
Vital Signs:
Vital Signs
Temp Pulse Resp BP Pulse Ox
97.7 F 49 20 138/72 98
09/10/23 07:00 09/10/23 08:20 09/10/23 08:20 09/10/23 07:00 09/10/23 08:20
I&O
09/09/23 09/10/23 09/11/23
06:59 06:59 06:59
Intake Total 680 / 680 560 / 560
Output Total 500 / 500 1200 / 1200
Balance 180 / 180 -640 / -640
--- NOTE | 2023-09-10 11:01 | W.DCSUMMARY ---
Discharge Summary
Discharge Data
Date of Admission: 08/28/23
Date of Discharge: 09/10/23
-
Pending Results: No
Hospital Course
Patient 77 years old female with history of chronic hypoxic respiratory failure on home oxygen, CHF, aortic stenosis, MR, CKD, hypertension, hyperlipidemia, MARIAMA, diabetes mellitus, bradycardia, peripheral neuropathy, chronic lymphedema, DVT, morbid
obesity, ambulatory dysfunction, chronic lower extremity sacral pressure ulcers and leg ulcers, presented to the hospital with increased shortness of breath and increased weight gain. Patient was found to be in heart failure. Her ejection fraction
was noted to be with low normal ejection fraction with EF 45 to 50% back in February 2023. She was diuresed aggressively with IV Lasix. Cardiology and nephrology were consulted. She was also started on IV antibiotics for possible cellulitis and
cultures grew Citrobacter and alcaligenes but felt to be contaminant. She had an allergic reaction and antibiotics were discontinued but also it was felt that cultures were contaminant and was not very clear that she indeed had an active infection.
She did well off antibiotics and remained afebrile and normal white blood cell count. Patient renal function deteriorated while on diuretics at this was held and after few days diuretics were restarted by nephrology. Patient did well on oral
diuretics and her renal function remained stable and if anything improved. Patient has been deemed a candidate for rehabilitation and she is going for intermediate facility for further rehab. No other events were noticed. She will be
discharged in relatively stable condition today.
Discharge duration: 35 minutes
Discharge Plan
-
Patient Disposition: Snf/SNF
Discharge Diagnosis/Procedures: Acute on chronic systolic congestive heart failure. Chronic hypoxic respiratory failure. Acute kidney injury on chronic kidney disease. Drug rash. Chronic lymphedema lower extremities. Right shoulder rotator cuff
arthropathy. Hypertension. Diabetes mellitus type 2. Asthma. Obstructive sleep apnea. Morbid obesity.
Diet: Low Cholesterol and Restrict fluids to 48 oz
Blood Work: Please PCP to order CBC, BMP within 1 week
Specialty Instructions: Weigh Daily- Call MD for wt gain/loss 3 lbs overnight/5 lbs in 1 week
Activity Restrictions/Additional Instructions:
Wound Care Instructions Can shower
R proximal lateral wound: clean with soap and water, dry dressing daily.
L distal lateral wound: clean with soap and water, dry dressing daily
Moisturize legs and feet daily with Aquaphor
mona wraps daily forefoot to below knee daily, can remove at bedtime
Resume own compression wraps when home daily, leg elevation when sitting
Buttocks: clean with saline, silicone foam change q other day and prn soilage.
air mattress with turning schedule
offloading cushion when sitting
Follow up at wound care center call for an appointment.
Instructions: *[facility] Heart Failure Instructions
Referrals:
Miguel Bella, [Family Provider] - in less than 1 week
Henry Velez MD [Active] - in two to three weeks
Tarah Malik MD [Active] - in two to three weeks
Sudhakar Rogers MD [Active] - in one to two months (rotator cuff arthropathy)
Prescriptions:
New
metoprolol succinate 25 mg Tablet Extended Release 24 Hr
12.5 mg PO DAILY 30 Days Qty: 15 0RF
Continued
multivitamin with folic acid [Tab-A-Toy] 1 TABLET tablet
1 tab PO NOON
atorvastatin 20 MG tablet
20 mg PO HS
Hold Instructions: Resume on 08/04/23.
aspirin 81 MG tablet,delayed release (DR/EC)
81 mg PO NOON
furosemide 80 mg tablet
80 mg PO DAILY
acetaminophen [Tylenol] 325 mg Tablet
650 mg PO Q6HPRN PRN (Reason: mild pain)
levalbuterol tartrate [Xopenex HFA] 45 mcg/actuation Hfa Aerosol Inhaler
2 inh INHALATION R DAILYPRN PRN (Reason: sob)
potassium chloride [Klor-Con M20] 20 mEq tablet,ER particles/crystals
20 meq PO RYAN
hydralazine 50 mg tablet
50 mg PO BID Qty: 60 0RF
miconazole nitrate [Miconazorb AF] 2 % powder
1 applic topical BID
Discontinued
repaglinide 0.5 mg Tablet
0.5 mg PO BIDPRN PRN (Reason: BLOOD SUGAR >150 )
metolazone 2.5 mg tablet
2.5 mg PO RYAN
promethazine-codeine 6.25-10 mg/5 mL Syrup
5 ml PO Q4HPRN PRN (Reason: cough) Qty: 200 0RF
Discharge Orders:
Discharge Patient (As Directed); Ordered 09/10/23
Ordered By: Michael Velez
Discharge Date and Time
Discharge Date/Time: 09/10/23 14:35
--- NOTE | 2023-09-10 11:37 | W.HF.CON ---
Heart Failure
- LV Function
Left ventricular function study result: LV Ejection fraction >40% (ECHO 03/16/23)
Ejection Fraction Percentage: 45-50
- ARNI
Patient already on ARNI: No
Heart Failure ARNI Not Indicated: LV Ejection Fraction >/= 40%
- ACEI/ARB
Patient already on ACEI/ARB: No
Heart Failure ACEI/ARB Not Indicated: LV Ejection Fraction > 40%
- Beta Floresita
Patient already on Evidence Based Beta Floresita: Yes
- Mineralocorticord Receptor Antagonist
Patient already on MRA: No
Heart Failure MRA Not Indicated: LV Ejection Fraction > 40%
- SGLT-2 Inhibitor
Patient already on SGLT-2 Inhibitor: No
Heart Failure SGLT-2 Inhibitor Not Indicated: LV Ejection Fraction >40%
- NYHA CHF Classification
NYHA CHF Classification Level: Class III - Symptoms w/ min exertion, interferes w/ nml daily activity
- ACC/AHA Stage
ACC/AHA Stage: Stage C: Symptomatic Heart Failure
--- NOTE | 2023-09-10 11:39 | CM ---
patient scheduled for transport to [facility] via ambulance at 13:30.covid test was negative. patient signed medicare letter.
[2023-09-10 12:11] LABS: Glucose - Point of Care 179 mg/dl (70-99)
--- NOTE | 2023-09-10 12:32 | W.PN.NEPH.PH ---
Today's Communication / Plan
-
- d/c today
Assessment/Plan
-
Assessment:
ALMA on CKD 3 (bl Cr 1.2-1.4)
ADHF (EF 40-45%)
Drug rash
LE wounds
HTN
DLDAsthma
MARIAMA
RLE DVT 2019
morbid obesity
Plan:
ALMA
- differential: cardiorenal vs. AIN in setting of recent abx usage (less likely without peripheral eosinophilia)
- weights are not accurate
- cont on home lasix 80mg daily
- Cr better at 1.6 (peak 2.0), no labs today
- bp are stable
Likely for discharge later.
Please obtain labs post discharge in 4 weeks to ensure Cr is stable
-
-
Date of Service: September 10, 2023
CC / HPI / ROS
-
Chief Complaint:
ALMA on CKD
History of Present Illness:
Cr stabilizing around 1.6
reinitiated lasix 09/04
BP stable
wts not accurate on bedscale
non oliguric with out nloen
Review of Systems:
denies SOB , no cp
chr O2 NC
feels well
Labs
-
Labs:
WBC 10.2 10^3/uL (4.8-10.8) 09/06/23 06:49
RBC 3.88 10^6/uL (4.20-5.40) L 09/06/23 06:49
Hgb 10.6 g/dL (12.0-16.0) L 09/06/23 06:49
Hct 32.9 % (37.0-47.0) L 09/06/23 06:49
Plt Count 296 10^3/uL (130-400) 09/06/23 06:49
Sodium 138 mmol/L (135-145) 09/09/23 06:28
Potassium 4.6 mmol/L (3.5-5.1) 09/09/23 06:28
Chloride 102 mmol/L (98-107) 09/09/23 06:28
Carbon Dioxide 33 mmol/L (22-30) H 09/09/23 06:28
BUN 65 mg/dl (7-17) H 09/09/23 06:28
Creatinine 1.6 mg/dL (0.6-1.0) H 09/09/23 06:28
eGFR 32.60 09/09/23 06:28
Glucose 90 mg/dl (70-99) 09/09/23 06:28
Calcium 7.9 mg/dl (8.4-10.2) L 09/09/23 06:28
Qng-W-Zfjoshkrndb Pept 30256 pg/ml 09/05/23 07:19
Albumin 2.7 g/dl (3.5-5.0) L 08/31/23 06:07
Physical Exam
-
Vital Signs:
Vital Signs
Temp Pulse Resp BP Pulse Ox
97.7 F 49 20 138/72 98
09/10/23 07:00 09/10/23 08:20 09/10/23 08:20 09/10/23 07:00 09/10/23 08:20
Cardiovascular:: Regular rate and rhythm
Respiratory:: Bilateral: Coarse
Lung Excursion:: Normal
Abdomen:: Distended, Nontender and Soft
Bowel Sounds:: Normal
Extremity Edema:: +3: Bilateral: (wrapped bilateral lower ext)
Nolen Catheter: No
[2023-09-10] MEDS: THERAGRAN 1 TABLET PO (12:56)
[2023-09-10] MEDS: ASPIR LOW (ENTERIC COATED) 81 MG PO (12:56)
[2023-09-10] MEDS: NOVOLOG FLEXPEN-LOW RESISTANCE 1 UNITS SC (12:56)
[2023-09-10] MEDS: XOPENEX HFA 45 MCG INHALER 2 PUFF INH (13:32)
--- NOTE | 2023-09-10 13:36 | CM ---
Spoke with Christi at [facility], bed available.
bariatric equipment available.
Ambulance transport scheduled 1:30 pm.
[facility]
Report # [phone]
[2023-09-10 14:02] VITALS: BP 128/80
--- NOTE | 2023-09-10 15:11 | CM ---
spoke with jaime in adm at [facility].bed is available for patient.ambulance transport scheduled for 1:30pm.gave floor nurse phone number to call report [phone] and fax number [phone].patient signed medicare letter.
== END 2023-09-10 14:35 | DRG 291 ==
LOC: 3 WEST ACU 23:43
PROVIDERS: Clinical Nurse Specialist Family Health; Hospitalist; Internal Medicine Cardiovascular Disease; Registered Nurse; ADMITTING PHYSICIAN Hospitalist; ATTENDING PHYSICIAN Hospitalist; CONSULT PHYSICIAN Student in an Organized Health Care Education/Training Program; EMERGENCY PHYSICIAN Student in an Organized Health Care Education/Training Program; FAMILY PHYSICIAN Family Medicine; OTHER PHYSICIAN Internal Medicine Cardiovascular Disease
DX: I13.0 Hypertensive heart and chronic kidney disease with heart failure and stage 1 through stage 4 chronic kidney disease, or unspecified chronic kidney disease (principal); I50.23 Acute on chronic systolic (congestive) heart failure; J96.11 Chronic respiratory failure with hypoxia; N17.9 Acute kidney failure, unspecified; E87.1 Hypo-osmolality and hyponatremia; I42.9 Cardiomyopathy, unspecified; E11.22 Type 2 diabetes mellitus with diabetic chronic kidney disease; E11.42 Type 2 diabetes mellitus with diabetic polyneuropathy; E78.00 Pure hypercholesterolemia, unspecified; I89.0 Lymphedema, not elsewhere classified; I87.2 Venous insufficiency (chronic) (peripheral); I87.8 Other specified disorders of veins; I49.3 Ventricular premature depolarization; R00.8 Other abnormalities of heart beat; E66.01 Morbid (severe) obesity due to excess calories; G47.33 Obstructive sleep apnea (adult) (pediatric); J44.89 Other specified chronic obstructive pulmonary disease; N18.32 Chronic kidney disease, stage 3b; M79.89 Other specified soft tissue disorders; I08.0 Rheumatic disorders of both mitral and aortic valves; L89.322 Pressure ulcer of left buttock, stage 2; R23.4 Changes in skin texture; E87.6 Hypokalemia; L89.312 Pressure ulcer of right buttock, stage 2; J45.30 Mild persistent asthma, uncomplicated; M19.011 Primary osteoarthritis, right shoulder; L27.0 Generalized skin eruption due to drugs and medicaments taken internally; T36.1X5A Adverse effect of cephalosporins and other beta-lactam antibiotics, initial encounter; Y92.239 Unspecified place in hospital as the place of occurrence of the external cause; L23.7 Allergic contact dermatitis due to plants, except food; Z86.718 Personal history of other venous thrombosis and embolism; Z11.52 Encounter for screening for COVID-19; Z79.82 Long term (current) use of aspirin; Z99.81 Dependence on supplemental oxygen; Z86.16 Personal history of COVID-19; Z91.119 Patient's noncompliance with dietary regimen due to unspecified reason; Z91.148 Patient's other noncompliance with medication regimen for other reason; Z88.8 Allergy status to other drugs, medicaments and biological substances; Z88.6 Allergy status to analgesic agent; Z88.1 Allergy status to other antibiotic agents; Z91.040 Latex allergy status; Z91.199 Patient's noncompliance with other medical treatment and regimen due to unspecified reason
CPT/HCPCS: 71045; 73030; 80048; 80053; 82962; 83036; 83735; 83880; 84443; 84484; 85025; 87070; 87077; 87186; 87205; 87502; 87811; 93005; 93970; 94640; 96374; 97163; 97167; 97530; 99291

== ENCOUNTER 2023-09-16 13:18 | Inpatient (IN) | payer MEDICARE, OTHER, SELFPAY ==
[2023-09-16] VITALS (10 sets, daily range): BP systolic 111–175; BP diastolic 56–106; BMI 45.2; BMI 44.0
--- NOTE | 2023-09-16 09:27 | ED.GENMED ---
History of Present Illness
<Anni Cardoso BELL SPINNER - Last Filed: 09/17/23 17:28>
General
Chief Complaint: Breathing Problem
Source: patient, ambulance crew, custodial records and previous hospital records
Exam Limitations: none
Time Seen by Provider: 09/16/23 09:17
Nursing documentation reviewed up to this point in time: agreed with
Travel History
Have you had any contact with someone who has COVID-19?: No
Do you have any symptoms of coronavirus? Fever > 100 degrees, chills, cough, shortness of breath, sore throat, loss of taste or smell, muscle aches, or headache?: Yes
Symptoms:: SOB
History of Present Illness
History of Present Illness:
77 yo female w h/o COPD, chronic hypoxic respiratory failure on home oxygen 2 L nasal cannula, CHF, bilateral lower extremity lymphedema, CKD, HTN, HLD, NIDDM presents from [facility] where she is rehabbing after admission here from 08/27 to 09/09
for acute on chronic CHF, ALMA on CKD. She states she became SOB last night, it is reported by EMS that her pulse ox today was 88% on 2L N.C.
Pt denies CP, does feel SOB, denies n/v/d/c, denies abdominal pain, fever.
Past History
<Anni Cardoso BELL SPINNER - Last Filed: 09/17/23 17:28>
Past History
ED Past Medical History: Arrthythmia (Frequent PVCs), Asthma, CHF, HTN, Hypercholesterolemia, NIDDM, Other (Chronic lymphedema) and Other (Right lower extremity DVT October 2019)
ED Past Surgical History: Gynecological (Several D&Cs, miscarriage), Tonsilectomy and Other (Cancerous mass removed from right leg 20 years ago. Breast mass removed noncancerous.)
Social History
Tobacco: Non-smoker
Alcohol: None
Personal:
Living: with family (She lives with her family but she is in rehab at this time)
Employment: Retired
Family History
Family History: Other (Noncontributory)
Review of Systems
<Anni Cardoso BELL SPINNER - Last Filed: 09/17/23 17:28>
Review of Systems
Allergies reviewed?: Yes
All Other Systems: ROS reviewed and negative except as documented in HPI and ROS
Constitutional: Denies fever
Respiratory: Reports trouble breathing; Denies cough
Cardiac: Denies chest pain
ABD/GI: Denies abdominal pain, nausea, vomiting, diarrhea or anorexia
: Denies dysuria
Musculoskeletal: Reports edema (Chronic bilateral lower extremity lymphedema)
Skin: Reports other (Chronic color changes bilateral lower extremities)
Neurological: Denies dizzy, headache or weakness
Phy Exam
<Anni Cardoso, BELL SPINNER - Last Filed: 09/17/23 17:28>
Physical Exam
Physical Exam:
GENERAL: No acute distress. A&Ox3.
CONSTITUTIONAL: Afebrile.
EYES: PERRL, conjunctivae normal
ENMT: moist mucus membranes, Pharynx nl
RESPIRATORY: Regular respirations, nonlabored, lungs clear.
CARDIOVASCULAR: Regular rate and rhythm, no murmurs, no rubs.
GI: Soft, nontender, normal BS
MUSCULOSKELETAL: bilateral LE lymphedema
SKIN: Warm, dry, pink
PSYCH: Pleasant, Normal mood and affect. Well kept, interactive and appropriate
NEUROLOGIC: Awake, alert and oriented. No focal neurological deficits
Scores
<Anni Cardoso BELL SPINNER - Last Filed: 09/17/23 17:28>
Heart Failure Risk
Heart Failure Risk Score: Yes
History of Stroke or TIA: No
History of intubation for respiratory distress: No
Heart rate on ED arrival >/= 110: No
SaO2 <90% on arrival on room air: No
HR >/=110 during 3min walk test (or too ill to perform test): Yes
ECG has acute ischemic changes: No
Urea >/=12mmol/L (BUN 33.6mg/dL): Yes
Serum CO2>/=35mmol/L: No
Troponin I or T elevated to OR Level (0.4mg/dL): No
NT-proBNP >/=5,000ng/L (5,000pg/ml): Yes
HF Risk Score: 4
Admission Status: HIGH RISK 26.1% Consider SNF treatment or admission to hospital
Course
<Anni Cardoso, BELL SPINNER - Last Filed: 09/17/23 17:28>
Orders/Labs/Results
Orders:
Orders
09/16/23 Breakfast
Cholesterol Lowering
At Your Request: Full Participation
Fluid Restriction: 1440 mL/day (48 oz)
Cholesterol Lowering: Sodium, 2 Gram
1800 paulette/15 CHO Diabetic
09/16/23 09:15
EKG [Electrocardiogram (*1)] Urgent
Reason for Study: Shortness of Breath
EKG- Treatment ONCE
09/16/23 09:17
CR Chest Portable - 1 View Urgent
Comment:
Reason For Exam: SOB
Reason Study Needs to be Portable: Unable to Transport
09/16/23 09:19
COVID-19 Antigen Urgent
Source: Nasal Swab
Complete Blood Count/With Diff Urgent
Comprehensive Metabolic Panel Urgent
Pro-BNP [NT-proBNP] Urgent
Prothrombin Time Urgent
Troponin I Urgent
Influenza A+B Rapid Molecular Urgent
SAMEERA Source: Nasal Swab
Specimen Description:
09/16/23 12:47
Furosemide [Lasix] 80 mg IV NOW STA
09/16/23 13:02
CARDIOLOGY CONSULT Urgent
Consulting Provider: Maverick Ott
Was physician already notified: Yes
09/16/23 13:03
Admit/Transfer Patient As Directed
Co-Sign Provider:
Level of Care: Inpatient admission
Assign to:: IVU
Physician / Group: per don
Diagnosis: Acute on chronic CHF
Reason for Hospitalization: Acute on chronic CHF
Expected length of stay greater than two midnights?: Yes
ELOS- Estimated Length of Stay in days: 3
I certify the patient meets the requirements for IP care: Yes
09/16/23 13:06
Code Status As Directed
Resuscitation Status: Full Code
09/16/23 13:08
Bladder Scan As Directed
Follow Bladder Retention/Intermittent Cath Algorithm?: Yes
PRN if no void in __ hours: 6
Frequency: Per Retention Algorithm
If Bladder Scan Result >: 400
then:: Straight cath
Straight Cath As Directed
Frequency: Per Retention Algorithm
Additional Instructions: straight cath as needed per acute urinary retention algorithm for 24 hrs
Additional Instructions: for bladder scan greater than 400 mL
09/16/23 13:15
Dextrose 50%-Water [Dextrose 50% Syringe] 12.5 grams IV [id number] PRN
Glucagon [GlucaGen] 1 mg IM PRN PRN
Bedside Glucose Monitoring As Directed
Frequency: AC&HS
Comment: Change to q6h if pt on TPN, tube feeding or not eating
09/16/23 14:59
Acetaminophen [Tylenol] 650 mg PO Q6HPRN PRN
Bisacodyl [Dulcolax] 10 mg RECTAL DAILYPRN PRN
Levalbuterol Tartrate [Xopenex Hfa 45 Mcg Inhaler] 2 puff INH R DAILYPRN PRN
Magnesium Hydroxide [Milk of Magnesia] 30 ml PO DAILYPRN PRN
Phosphate Enema [Fleet Phosphate Enema-Adult] 135 ml RECTAL DAILYPRN PRN
Repaglinide [Prandin] 0.5 mg PO [id number] PRN
09/16/23 14:59
Activity As Directed
Activity Level: As Tolerated
Intake/ Output As Directed
Frequency: Per unit guidelines
Pneumatic Compression Sleeves As Directed
Type: Knee high
Vital Signs As Directed
Frequency: Per unit guidelines
Weight As Directed
Frequency: Daily
Xopenex Reason for Use As Directed
Reason for ordering Xopenex instead of Albuterol: tachycardia
Pulse Ox/spot Check [RESP] Routine
Quantity: 1
DX Deep Vein Thrombosis Video Routine
09/16/23 16:30
Insulin Aspart Corrective Low [Novolog Flexpen-Low Resistance] See Protocol SC AC
09/16/23 17:10
Troponin I Q6H
09/16/23 18:00
Enoxaparin Sodium [Lovenox] 40 mg SC QPM
09/16/23 20:00
Fluticasone/Salmeterol 115/21 [Advair Hfa 115/21 Mcg Inhaler] 2 puff INH R BID
HydrALAZINE [Apresoline] 50 mg PO BID
Miconazole Nitrate [Desenex/Mitrazol/Zeasorb] 0 applic TOPICAL BID
09/16/23 22:00
Atorvastatin [Lipitor] 20 mg PO HS
09/17/23 02:02
Basic Metabolic Panel IN AM
Complete Blood Count/With Diff IN AM
09/17/23 08:00
Aspirin Low Dose EC [Aspir Low (Enteric Coated)] 81 mg PO DAILY
Furosemide [Lasix] 80 mg IV DAILY
Metoprolol Xl [Toprol Xl] 12.5 mg PO DAILY
Petrolatum/Mineral Oil [Hydrophor] 0 applic TOPICAL DAILY
Abnormal Lab Results
09/16/23
09:19
RBC 4.01 L 10^6/uL
(4.20-5.40)
Hgb 10.9 L g/dL
(12.0-16.0)
Hct 34.4 L %
(37.0-47.0)
MCHC 31.7 L g/dL
(33.0-37.0)
RDW 17.8 H %
(11.5-14.5)
Absolute Lymphs (auto) 1.0 L 10^3/uL
(1.2-3.4)
Absolute Eos (auto) 1.0 H 10^3/uL
(0-0.7)
Lymphocytes % 11.7 L %
(20.5-51.1)
Eosinophils % 11.2 H %
(0-6)
PT 19.1 H Sec
(11.4-14.6)
Carbon Dioxide 32 H mmol/L
(22-30)
BUN 45 H mg/dl
(7-17)
Creatinine 1.2 H mg/dL
(0.6-1.0)
Glucose 121 H mg/dl
(70-99)
Calcium 8.3 L mg/dl
(8.4-10.2)
Albumin 3.3 L g/dl
(3.5-5.0)
09/16/23 09:19
09/16/23 09:19
Vital Signs
Initial and Last Documented VS:
Initial Vital Signs
Temp Pulse Resp BP Pulse Ox
97.5 F 81 24 140/62 98
09/16/23 09:14 09/16/23 09:14 09/16/23 09:14 09/16/23 09:14 09/16/23 09:14
Last Documented Vital Signs
Temp Pulse Resp BP Pulse Ox
97.6 F 61 20 129/71 98
09/17/23 15:49 09/17/23 16:00 09/17/23 15:49 09/17/23 15:26 09/17/23 16:10
Industrial Technologist consulted with Physician
Industrial Technologist consulted with physician?: Yes
Name of Physician Consulted: Kush
<Jayro Currie MD - Last Filed: 09/16/23 11:25>
Orders/Labs/Results
Orders:
Orders
09/16/23 Breakfast
Cholesterol Lowering
At Your Request: Full Participation
Fluid Restriction: 1440 mL/day (48 oz)
Cholesterol Lowering: Sodium, 2 Gram
1800 paulette/15 CHO Diabetic
09/16/23 09:15
EKG [Electrocardiogram (*1)] Urgent
Reason for Study: Shortness of Breath
EKG- Treatment ONCE
09/16/23 09:17
CR Chest Portable - 1 View Urgent
Comment:
Reason For Exam: SOB
Reason Study Needs to be Portable: Unable to Transport
09/16/23 09:19
COVID-19 Antigen Urgent
Source: Nasal Swab
Complete Blood Count/With Diff Urgent
Comprehensive Metabolic Panel Urgent
Pro-BNP [NT-proBNP] Urgent
Prothrombin Time Urgent
Troponin I Urgent
Influenza A+B Rapid Molecular Urgent
SAMEERA Source: Nasal Swab
Specimen Description:
09/16/23 12:47
Furosemide [Lasix] 80 mg IV NOW STA
09/16/23 13:02
CARDIOLOGY CONSULT Urgent
Consulting Provider: Maverick Ott
Was physician already notified: Yes
09/16/23 13:03
Admit/Transfer Patient As Directed
Co-Sign Provider:
Level of Care: Inpatient admission
Assign to:: IVU
Physician / Group: per don
Diagnosis: Acute on chronic CHF
Reason for Hospitalization: Acute on chronic CHF
Expected length of stay greater than two midnights?: Yes
ELOS- Estimated Length of Stay in days: 3
I certify the patient meets the requirements for IP care: Yes
09/16/23 13:06
Code Status As Directed
Resuscitation Status: Full Code
09/16/23 13:08
Bladder Scan As Directed
Follow Bladder Retention/Intermittent Cath Algorithm?: Yes
PRN if no void in __ hours: 6
Frequency: Per Retention Algorithm
If Bladder Scan Result >: 400
then:: Straight cath
Straight Cath As Directed
Frequency: Per Retention Algorithm
Additional Instructions: straight cath as needed per acute urinary retention algorithm for 24 hrs
Additional Instructions: for bladder scan greater than 400 mL
09/16/23 13:15
Dextrose 50%-Water [Dextrose 50% Syringe] 12.5 grams IV [id number] PRN
Glucagon [GlucaGen] 1 mg IM PRN PRN
Bedside Glucose Monitoring As Directed
Frequency: AC&HS
Comment: Change to q6h if pt on TPN, tube feeding or not eating
09/16/23 14:59
Acetaminophen [Tylenol] 650 mg PO Q6HPRN PRN
Bisacodyl [Dulcolax] 10 mg RECTAL DAILYPRN PRN
Levalbuterol Tartrate [Xopenex Hfa 45 Mcg Inhaler] 2 puff INH R DAILYPRN PRN
Magnesium Hydroxide [Milk of Magnesia] 30 ml PO DAILYPRN PRN
Phosphate Enema [Fleet Phosphate Enema-Adult] 135 ml RECTAL DAILYPRN PRN
Repaglinide [Prandin] 0.5 mg PO [id number] PRN
09/16/23 14:59
Activity As Directed
Activity Level: As Tolerated
Intake/ Output As Directed
Frequency: Per unit guidelines
Pneumatic Compression Sleeves As Directed
Type: Knee high
Vital Signs As Directed
Frequency: Per unit guidelines
Weight As Directed
Frequency: Daily
Xopenex Reason for Use As Directed
Reason for ordering Xopenex instead of Albuterol: tachycardia
Pulse Ox/spot Check [RESP] Routine
Quantity: 1
DX Deep Vein Thrombosis Video Routine
09/16/23 16:30
Insulin Aspart Corrective Low [Novolog Flexpen-Low Resistance] See Protocol SC AC
09/16/23 17:10
Troponin I Q6H
09/16/23 18:00
Enoxaparin Sodium [Lovenox] 40 mg SC QPM
09/16/23 20:00
Fluticasone/Salmeterol 115/21 [Advair Hfa 115/21 Mcg Inhaler] 2 puff INH R BID
HydrALAZINE [Apresoline] 50 mg PO BID
Miconazole Nitrate [Desenex/Mitrazol/Zeasorb] 0 applic TOPICAL BID
09/16/23 22:00
Atorvastatin [Lipitor] 20 mg PO HS
09/17/23 02:02
Basic Metabolic Panel IN AM
Complete Blood Count/With Diff IN AM
09/17/23 08:00
Aspirin Low Dose EC [Aspir Low (Enteric Coated)] 81 mg PO DAILY
Furosemide [Lasix] 80 mg IV DAILY
Metoprolol Xl [Toprol Xl] 12.5 mg PO DAILY
Petrolatum/Mineral Oil [Hydrophor] 0 applic TOPICAL DAILY
Abnormal Lab Results
09/16/23
09:19
RBC 4.01 L 10^6/uL
(4.20-5.40)
Hgb 10.9 L g/dL
(12.0-16.0)
Hct 34.4 L %
(37.0-47.0)
MCHC 31.7 L g/dL
(33.0-37.0)
RDW 17.8 H %
(11.5-14.5)
Absolute Lymphs (auto) 1.0 L 10^3/uL
(1.2-3.4)
Absolute Eos (auto) 1.0 H 10^3/uL
(0-0.7)
Lymphocytes % 11.7 L %
(20.5-51.1)
Eosinophils % 11.2 H %
(0-6)
PT 19.1 H Sec
(11.4-14.6)
Carbon Dioxide 32 H mmol/L
(22-30)
BUN 45 H mg/dl
(7-17)
Creatinine 1.2 H mg/dL
(0.6-1.0)
Glucose 121 H mg/dl
(70-99)
Calcium 8.3 L mg/dl
(8.4-10.2)
Albumin 3.3 L g/dl
(3.5-5.0)
09/16/23 09:19
09/16/23 09:19
Vital Signs
Initial and Last Documented VS:
Initial Vital Signs
Temp Pulse Resp BP Pulse Ox
97.5 F 81 24 140/62 98
09/16/23 09:14 09/16/23 09:14 09/16/23 09:14 09/16/23 09:14 09/16/23 09:14
Last Documented Vital Signs
Temp Pulse Resp BP Pulse Ox
97.6 F 61 20 129/71 98
09/17/23 15:49 09/17/23 16:00 09/17/23 15:49 09/17/23 15:26 09/17/23 16:10
<Anni Cardoso BELL SPINNER - Last Filed: 09/17/23 17:28>
MDM/Problems Addressed
Differential Diagnosis Includes:
CHF, Covid, PNA, COPD exacerbation.
MDM/Problems Addressed:
77 yo female w h/o COPD, chronic hypoxic respiratory failure on home oxygen 2 L nasal cannula, CHF, bilateral lower extremity lymphedema, CKD, HTN, HLD, NIDDM presents from [facility] where she is rehabbing after admission here from 08/27 to 09/09
for acute on chronic CHF, ALMA on CKD. She states she became SOB last night, it is reported by EMS that her pulse ox today was 88% on 2L N.C.
Pt denies CP, does feel SOB, denies n/v/d/c, denies abdominal pain, fever.
Afebrile, NAD pulse ox 98% on 4L NC.
EKG: sinus with frequent PVCs no change from previous
Records reviewed: Chronic HFrEF (40-45%)
09/16/2023 1052 AM
CBC with no clinically significant abnormality
CMP: BUN/creat improving, no clinically significant abnormality
Chest x-ray: IMPRESSION:
Cardiomegaly, unchanged.
Increased pulmonary vascular markings which could represent mild CHF or acute pulmonary edema.
09/16/2023 1109 AM
Case discussed with Dr. Currie who examined patient and agrees she should be admitted as she is tachypneic at rest with increased need for oxygen,x-ray showing increased markings of CHF or pulmonary edema
Hospitalist notified of admission
Chronic conditions affecting care: DM, HTN, COPD, PVD and Kidney disease
Acute Exacerbation and/or Progression of Chronic Illness: COPD and Kidney disease
<Anni Cardoso BELL SPINNER - Last Filed: 09/17/23 17:28>
*EKG
EKG Intrepretation Date: 09/16/23
Interpretation: abnormal
Comparison EKG: no changes
Rate: normal
Rhythm: sinus and PVC's
[place]: left axis deviation
Ischemia: non-specific ST changes
*Critical Care Note
Total Time (30-74mins, 75-104mins- exclusive of procedures): Not Applicable
ED Attending Note
<Anni Cardoso BELL SPINNER - Last Filed: 09/17/23 17:28>
-
Portions of this chart may have been created with voice recognition software.� Occasional wrong word or��sound alike� substitutions may have occurred due to the inherent limitations of voice recognition software.
<Jayro Currie MD - Last Filed: 09/16/23 11:25>
ED Attending Note
Patient seen and examined by attending physician: Yes
I performed the substantive portion of visit, reviewed & personally made and approve the management plan that is documented in note by myself or IQRA.: Yes
ED Attending Note:
Patient with some increased shortness of breath since last night. No chest pain no fever. Symptoms are moderate in nature.
On exam patient is mildly tachypneic at rest. Pulse ox 93% on her nasal cannula. Rales bilaterally.
Chest x-ray with some cardiomegaly and mild increased vascular markings. proBNP elevated but relatively stable. Given patient's tachypnea at rest warrants inpatient management
Discharge Plan
Departure
Patient Disposition: Admit
Date of Disposition: 09/16/23
Time of Disposition: 11:08
Presentation/result/management discussed w/ accepting MD/DO: Hospitalist
Condition: Fair
Covid-19: Negative COVID-19
Discharge Problem:
Acute on chronic diastolic CHF (congestive heart failure)
Interventions
Interventions:
*Risk Screen - Suicide Last Done: 09/16/23 09:16
*General Assessment Last Done: 09/16/23 09:16
*Neglect/Abuse Screening Last Done: 09/16/23 09:17
ED- Fall Risk Assessment Last Done: 09/16/23 09:48
*ED COVID-19 Vaccine History Last Done: 09/16/23 15:40
*Nursing Disposition Last Done: 09/16/23 15:08
ED- Cardiac Assessment Last Done: 09/16/23 09:48
ED- Pulmonary Assessment Last Done: 09/16/23 09:16
Discharge Date and Time
Discharge Date/Time: 09/16/23 15:09
[2023-09-16 09:40] LABS: % Basophils 1.2 % (0-2); % Eosinophils 11.2 % (0-6); % Immature Granulocytes 0.4 % (0-0.5); % Lymphocytes 11.7 % (20.5-51.1); % Neutrophils 70.5 % (42.2-75.2); Absolute Basophils 0.1 10^3/uL (0-0.2); Absolute Monocytes 0.4 10^3/uL (0.1-0.6); Hematocrit 34.4 % (37.0-47.0); Hemoglobin 10.9 g/dL (12.0-16.0); Mean Corp Hgb Conc. 31.7 g/dL (33.0-37.0); Mean Corpuscular Hgb 27.2 pg (27.0-31.0); Mean Corpuscular Volume 85.8 fL (81.0-99.0); Mean Platelet Volume 9.2 fL (7.4-10.4); Nucleated Red Blood Cells % 0 %; Platelet Count 260 10^3/uL (130-400); Red Blood Cell Count 4.01 10^6/uL (4.20-5.40); Red Cell Dist. Width 17.8 % (11.5-14.5); White Blood Cell Count 8.5 10^3/uL (4.8-10.8)
[2023-09-16 09:54] LABS: COVID-19 Antigen Negative (Negative)
[2023-09-16 10:03] LABS: NT-proBNP 17100 pg/ml; Troponin I 0.025 ng/ml
[2023-09-16 10:11] LABS: INR 1.59; PT 19.1 Sec (11.4-14.6)
[2023-09-16 10:13] LABS: ALT (SGPT) 20 U/L (0-35); AST (SGOT) 29 U/L (14-36); Albumin 3.3 g/dl (3.5-5.0); Alkaline Phosphatase 109 U/L (38-126); Blood Urea Nitrogen 45 mg/dl (7-17); Calcium 8.3 mg/dl (8.4-10.2); Carbon Dioxide 32 mmol/L (22-30); Chloride 103 mmol/L (98-107); Estimated Creatinine Clearance 47 ml/min; Glucose 121 mg/dl (70-99); Potassium 4.4 mmol/L (3.5-5.1); Sodium 143 mmol/L (135-145); Total Bilirubin 1.2 mg/dl (0.2-1.3); Total Protein 7.7 g/dl (6.3-8.2); eGFR 46.05
[2023-09-16] MEDS: LASIX 80 MG IV (12:55)
--- NOTE | 2023-09-16 13:09 | HPS.HSE ---
Family Physician
-
Family Physician: Salinas Colon MD
Chief Complaint
-
Shortness of breath
History of Present Illness
77-year-old female with past medical history of COPD, chronic hypoxic respiratory failure on 2 L, bilateral lower extremity lymphedema, hypertension, [id number] diabetes mellitus, hyperlipidemia, CKD, CHF came to the hospital with ongoing
shortness of breath. Per patient it started last night and then gotten worse. Denies any chest pain. Denies any abdominal pain, nausea, vomiting, diarrhea, constipation. Denies any fever/chills. Per patient she has been compliant with all her
medications along with her diet and fluid intake.
Medical History
Past Medical History
Past Medical History: Reports Asthma, COPD, HTN, Hypercholesterolemia, NIDDM and Other (Right lower extremity DVT)
Past Surgical History: Reports Other (Tonsillectomy, breast mass removal)
Social History
Tobacco: Non-smoker
Alcohol: None
Family History
Family History: Not pertinent
Allergies / Home Medications
Allergies reflects when Allergies were last updated in [employer].
Home Medications with original date entered in [employer]
Allergy/Medication List:
Allergies
Allergy/AdvReac Type Severity Reaction Status Date / Time
albuterol Allergy 'could not Verified 09/16/23 09:13
breath'
ceftriaxone [From Rocephin] Allergy Rash Verified 09/16/23 09:13
08/28/23
admission
cefuroxime [From Ceftin] Allergy facial Verified 09/16/23 09:13
droop,lip
swell/Margie
cefepime,
cefazolin
latex Allergy Rash Verified 09/16/23 09:13
levofloxacin [From Levaquin] Allergy facial Verified 09/16/23 09:13
droop,
rash,
numbness
lisinopril Allergy Shortness Verified 09/16/23 09:13
of Breath
naproxen Allergy Rash Verified 09/16/23 09:13
NSAIDS (Non-Steroidal Allergy Rash Verified 09/16/23 09:13
Anti-Inflamma
poison aroldo extract Allergy Unknown Verified 09/16/23 09:13
poison oak extract Allergy Unknown Verified 09/16/23 09:13
Home Medications
atorvastatin 20 mg tablet 20 mg PO HS High cholesterol 11/08/19
aspirin 81 mg tablet,delayed release 81 mg PO DAILY Blood clot prevention/tx 09/01/22
furosemide 80 mg tablet 80 mg PO DAILY Fluid Retention/Swelling 04/26/23
acetaminophen 325 mg tablet (Tylenol) 650 mg PO Q6HPRN PRN mild pain/fever 07/27/23
potassium chloride 20 mEq tablet,extended release(part/cryst) (Klor-Con M) 20 meq PO RYAN Supplement 07/27/23
hydralazine 50 mg tablet 50 mg PO BID #60 tabs 07/31/23
miconazole nitrate 2 % topical powder (Miconazorb AF) 1 applic topical BID apply to folds 08/28/23
metoprolol succinate 25 mg tablet,extended release 24 hr 12.5 mg PO DAILY 30 days #15 tabs 09/08/23
bisacodyl 10 mg rectal suppository (Dulcolax (bisacodyl)) 10 mg OR DAILY PRN if no BM in 8hr after MOM 09/16/23
fluticasone 250 mcg-salmeterol 50 mcg/dose blistr powdr for inhalation 1 inh inhalation R BID 09/16/23
levalbuterol tartrate 45 mcg/actuation aerosol inhaler 2 inh inhalation R DAILYPRN PRN sob 09/16/23
magnesium hydroxide 400 mg/5 mL oral suspension (Milk of Magnesia) 30 ml PO DAILY PRN if no BM x 2 days 09/16/23
mineral oil-hydrophil petrolat topical ointment (Aquaphor topical ointment) 1 applic topical DAILY apply to legs and B/L feet 09/16/23
repaglinide 0.5 mg tablet 0.5 mg PO [id number] PRN for glucose>150 09/16/23
sodium phosphates 19 gram-7 gram/118 mL enema (Fleet Enema) 118 ml OR DAILYPRN PRN if no BM 8hr after supp 09/16/23
Review of Systems
-
History Source: Patient
A 12 point ROS was completed and negative except as noted: Yes
Respiratory: Reports Trouble Breathing
Physical Exam
Vital Signs
Vital Signs
Temp Pulse Resp BP Pulse Ox
97.5 F 75 25 153/63 96
09/16/23 09:14 09/16/23 12:30 09/16/23 12:30 09/16/23 12:00 09/16/23 12:30
Physical Exam
General: Well Nourished, No Apparent Distress and Morbidly Obese
HEENT: Anicteric and Moist mucous membranes
Respiratory: Clear and Crackles; No Wheezes
Cardiac: S1/S2 and Regular Rhythm
Breast: Deferred by me
GI: Soft, Non Tender, Non Distended and Normal Bowel Sounds
Rectal: Deferred by Provider
Genito-urinary: No Loja
Musculoskeletal: Edema, Left Lower Extremity and Edema, Right Lower Extremity
Neuro: Awake, Oriented and AO x 3
Psych: Calm and Intact Judgment/Insight
Laboratory Results
-
09/16/23 09:19
09/16/23 09:19
Laboratory Results
PT 19.1 Sec (11.4-14.6) H 09/16/23 09:19
INR 1.59 09/16/23 09:19
Total Bilirubin 1.2 mg/dl (0.2-1.3) 09/16/23 09:19
AST 29 U/L (14-36) 09/16/23 09:19
ALT 20 U/L (0-35) 09/16/23 09:19
Alkaline Phosphatase 109 U/L (38-126) 09/16/23 09:19
Troponin I 0.025 ng/ml 09/16/23 09:19
Data Reviewed
-
Diagnostic Radiology: Report Reviewed by me and Discussed with Patient
Lab Data: Labs Reviewed by me and Discussed with Patient
Impression/Plan
-
Acute on chronic hypoxic respiratory failure secondary to acute on chronic CHF exacerbation with reduced ejection fraction
Currently on 4 L, however is on chronic 2 L O2
BNP elevated, chest x-ray consistent with pulmonary edema
Give IV Lasix
Cardiology consult
Fluid restriction
Recent echo with EF 40 to 45%
I's and O's
Bladder scan
trend trops
CKD stage IIIb
Creatinine currently 1.2
Continue to monitor, high risk of cardiorenal syndrome
Bladder scan
Essential hypertension
Diabetes mellitus
Accu-Cheks, sliding scale
Repaglinide
Hyperlipidemia
Asthma/COPD
Obstructive sleep apnea
Start CPAP on her own few years ago
History of right lower extremity DVT
History history of bilateral lower extremity left
Morbid obesity due to excess calories
DVT prophylaxis
Lovenox
Full code
I spent a total of 78 minutes with the patient or on the floor. More than 50% of this time involved counseling and coordination of care.
--- NOTE | 2023-09-16 14:03 | CON.CAR ---
Addendum entered and electronically signed by Maverick Ott MD 09/16/23 17:10:
I saw and examined the patient.
The REIMBURSEMENT CONSULTANT or PA's note was reviewed and I agree with the note.
Comment: General: Well developed, well nourished in NAD.
Neck: Supple, no JVD, HJR, carotids +2 B/L, no bruits bilaterally.
Heart: Non displaced PMI, RRR, no murmurs, No S3, S4, no rubs.
Lungs: Scattered rhonchi
Abdomen: Normal bowel sounds, soft, non-tender, non-distended.
Extremities: Severe lower extremity edema with chronic venous stasis change
Neuro: Grossly nonfocal, awake, alert and oriented x3.
Carmen has chronic respiratory failure with multiple admissions for diastolic CHF, chronic lymphedema, hypertension, diabetes, sleep apnea, peripheral neuropathy, DVT, morbid obesity, medical and dietary noncompliance. She was at [facility].
She missed her usual inhaler therapy because it was nonformulary. Last night her oxygen to be kept filling up with water and was more short of breath with worsening hypoxia requiring her oxygen to go from her normal 2 L to 4 L. She was sent to the
ER and is admitted for acute diastolic CHF. proBNP was 17,000. She is given Lasix 80 mg IV in the ER.
Unfortunately she has had multiple admissions. Will try to diurese as much as renal function overall well. She is chronically on 2 L hopefully get back to her baseline level. She finally had agreed to go to [facility] on discharge and then was
readmitted within a week. Discussed with primary service
Original Note:
Consultation
Consultation Request
Date/Time Consultation Requested: 09/16/23
Date/Time Consultation Performed: 09/16/23
Requesting Provider: Dr. Stuart
Performing Provider: Dr. Ott
Reason for Consultation: Hypoxia, possible acute HF
Medical History
-
History of Present Illness:
Patient came to [facility] with hypoxia and cardiology is consulted for acute HF. Patient was just admitted to 08/28/23 until 09/10/23 with acute HF and generally she declines SNF and VN recommendations, but this time she was a max assist of 2 and so she
and her family were agreeable to rehab at [facility]. patient says that she missed days of her usual inhaler therapy because it was non-formulary and she had to wait for family to bring from home. Then last night her oxygen tubing kept filling up
with water. Patient wears oxygen at 2 L NC continuously, but now requiring 4 L. She says that she was unable to turn back and forth with changing this AM and so she was sent to [facility]. [place]BNP [place] 33067 which is moderately elevated for her.
Troponin normal. No chest pain. She was given Lasix 80 mg IV x1 in the ER with increased urine output.
PMH:
Chronic hypoxic respiratory failure
Chronic heart failure with mildly reduced ejection fraction, proBNP 11,300
CKD 3b
Recent admission for COVID-19 treated with Paxlovid and Decadron 07/27/2021 - 07/31/2023
Recent admission for acute HF 08/28/23 until 09/10/23
Chronic hypoxic respiratory failure on home oxygen 1-2 L via NC
Frequent PVCs and bigeminy
Asthma/COPD
Chronic Lymphedema and chronic venous stasis changes
Hypertension
HLD
DM II
MARIAMA
Peripheral Neuropathy
History of DVT
Morbid Obesity
Medication and dietary non-adherence
Past Medical History
Past Medical History: Other (in HPI)
Past Surgical History: Other (B/l cataract surgery, Several D&Cs, miscarriage, Tonsilectomy, Cancerous mass removed from right leg 20 years ago, Breast mass removed noncancerous)
Social History
Tobacco: Non-Smoker
Alcohol: None
Living: [facility] (rehab at [facility], but plans to return home with family)
Family History
Family History: Cancer and Other (thamassemia)
Allergies / Home Medications
Allergy/AdvReac Type Severity Reaction Status Date / Time
albuterol Allergy 'could not Verified 09/16/23 09:13
breath'
ceftriaxone [From Rocephin] Allergy Rash Verified 09/16/23 09:13
08/28/23
admission
cefuroxime [From Ceftin] Allergy facial Verified 09/16/23 09:13
droop,lip
swell/Margie
cefepime,
cefazolin
latex Allergy Rash Verified 09/16/23 09:13
levofloxacin [From Levaquin] Allergy facial Verified 09/16/23 09:13
droop,
rash,
numbness
lisinopril Allergy Shortness Verified 09/16/23 09:13
of Breath
naproxen Allergy Rash Verified 09/16/23 09:13
NSAIDS (Non-Steroidal Allergy Rash Verified 09/16/23 09:13
Anti-Inflamma
poison aroldo extract Allergy Unknown Verified 09/16/23 09:13
poison oak extract Allergy Unknown Verified 09/16/23 09:13
Medication Instructions Recorded Confirmed Type
atorvastatin 20 mg tablet 20 mg PO HS High cholesterol 11/08/19 09/16/23 History
aspirin 81 mg tablet,delayed 81 mg PO DAILY Blood clot 09/01/22 09/16/23 History
release prevention/tx
furosemide 80 mg tablet 80 mg PO DAILY Fluid 04/26/23 09/16/23 History
Retention/Swelling
acetaminophen 325 mg tablet 650 mg PO Q6HPRN PRN mild 07/27/23 09/16/23 History
(Tylenol) pain/fever
potassium chloride 20 mEq 20 meq PO RYAN Supplement 07/27/23 09/16/23 History
tablet,extended
release(part/cryst) (Klor-Con M)
hydralazine 50 mg tablet 50 mg PO BID #60 tabs 07/31/23 09/16/23 Rx
miconazole nitrate 2 % topical 1 applic topical BID apply to folds 08/28/23 09/16/23 History
powder (Miconazorb AF)
metoprolol succinate 25 mg 12.5 mg PO DAILY 30 days #15 tabs 09/08/23 09/16/23 Rx
tablet,extended release 24 hr
bisacodyl 10 mg rectal suppository 10 mg SD DAILY PRN if no BM in 8hr 09/16/23 09/16/23 History
(Dulcolax (bisacodyl)) after MOM
fluticasone 250 mcg-salmeterol 50 1 inh inhalation R BID 09/16/23 09/16/23 History
mcg/dose blistr powdr for
inhalation
levalbuterol tartrate 45 2 inh inhalation R DAILYPRN PRN sob 09/16/23 09/16/23 History
mcg/actuation aerosol inhaler
magnesium hydroxide 400 mg/5 mL 30 ml PO DAILY PRN if no BM x 2 09/16/23 09/16/23 History
oral suspension (Milk of Magnesia) days
mineral oil-hydrophil petrolat 1 applic topical DAILY apply to 09/16/23 09/16/23 History
topical ointment (Aquaphor topical legs and B/L feet
ointment)
repaglinide 0.5 mg tablet 0.5 mg PO [id number] PRN for 09/16/23 09/16/23 History
glucose>150
sodium phosphates 19 gram-7 118 ml SD DAILYPRN PRN if no BM 09/16/23 09/16/23 History
gram/118 mL enema (Fleet Enema) 8hr after supp
Review of Systems
-
History Source: Patient
All other systems: Negative unless noted
Physical Exam
Vital Signs
Temp Pulse Resp BP Pulse Ox
97.5 F 75 25 153/63 96
09/16/23 09:14 09/16/23 12:30 09/16/23 12:30 09/16/23 12:00 09/16/23 12:30
General: No acute distress, AAOX3
HEENT: EOMI, MMM
Heart: Regular with ectopy, Negative S3 positive S1/S2, Negative S4, No murmur
Lungs: Wearing oxygen at 4 L NC. No wheeze B/L.
Abd: +BS, ND, NT, soft
Ext: Chronic lymphedema changes. +3 B/L LE hard non-pitting edema. No clubbing, cyanosis or lesions B/L
Neuro: No focal or lateralizing weakness
Skin: Warm, dry and pink. No rash
Lab Results
09/16/23 09:19
09/16/23 09:19
Troponin I 0.025 ng/ml 09/16/23 09:19
Fty-J-Blquomoylfr Pept 73236 pg/ml 09/16/23 09:19
Impression / Plan
-
PCP: Cris Avilez PA-C
Survey Research Associate: Dr. Ott
Impression:
Acute on chronic hypoxic respiratory failure
Acute on chronic heart failure with mildly reduced ejection fraction, proBNP 11,300
CKD 3b
Recent admission for COVID-19 treated with Paxlovid and Decadron 07/27/2021 - 07/31/2023
Recent admission for acute HF 08/28/23 until 09/10/23
Chronic hypoxic respiratory failure on home oxygen 1-2 L via NC
Frequent PVCs and bigeminy
Asthma/COPD
Chronic Lymphedema and chronic venous stasis changes
Hypertension
HLD
DM II
MARIAMA
Peripheral Neuropathy
History of DVT
Morbid Obesity
Medication and dietary non-adherence
Echo 08/22/21:�LVEF 53%, mild LVH, Mild MR, Mild 17/04 PRECIOUS 1.7cm2, mild AI
Echo 03/24/22: Technically limited study and patient was scanned in a wheelchair. No regional wall motion abnormalities are seen. LV ejection fraction is 53% by Phan's biplane method�of discs. Mild left ventricular hypertrophy. Normal diastolic
function. Mild mitral regurgitation is seen. This may be underestimated due to acoustic shadowing. Mild aortic stenosis. Peak/mean gradients across the aortic valve 20/10 mmHg. Using an LVOT diameter�of 2.0 cm the aortic valve by the Continuity
equation is calculated at 1.7 cm2. Mild aortic regurgitation.
Echo 12/18/2022:�EF 40-45%, global hypokinesis, moderate cLVH, stage II diastolic dysfunction, mild MS, mild MR, severely dilated LA, moderate with peak/mean gradients 45/20 mmHg, PRECIOUS 1.2 cm2, mild AR, mild TR, estimated PAP 42 mmHg,
Echo 03/16/2023: EF 45-50%, moderate cLVH, global hypokinesis, mild MR, mild to moderate with peak/mean gradients 21/12 mmHg, mild TR, estimated PAP 30-35 mmHg
Plan:
-Patient came to [facility] with hypoxia and cardiology is consulted for acute HF. Patient was just admitted to 08/28/23 until 09/10/23 with acute HF and generally she declines SNF and VN recommendations, but this time she was a max assist of 2 and so she
and her family were agreeable to rehab at [facility]. patient says that she missed days of her usual inhaler therapy because it was non-formulary and she had to wait for family to bring from home. Then last night her oxygen tubing kept filling up
with water. Patient wears oxygen at 2 L NC continuously, but now requiring 4 L. She says that she was unable to turn back and forth with changing this AM and so she was sent to [facility]. [place] pro-BNP was 41112 which is moderately elevated for her.
Troponin normal. No chest pain. She was given Lasix 80 mg IV x1 in the ER with increased urine output.
-pro-BNP is elevated and CXR concerning for acute HF, but physical exam is difficult. Agree with attempts at diuresis using Lasix 80 mg IV daily. Patient was taking Lasix 80 mg PO daily prior to admission. Dry weight at last discharge was 254 lbs.
-Patient had ALMA with attempts at more aggressive diuresis last admission. Cre is 1.2 in the ER now. Will follow
-Previously managed with Cardizem CD for frequent, asymptomatic PVCs. During one of her recent admissions she was changed to Toprol XL 12.5 mg daily. Will continue for now, watch for bradycardia.
-ECG reviewed by me is SR with frequent PVCs.
-Previously declined SGLT-2 due to risk of infection and she is almost bedbound and incontinent.
-Previously lisinopril caused SOB. Continue hydralazine and might consider consider adding Imdur at some point
-Missed days of inhaler therapy and oxygen was not working overnight at [facility]. She has a h/o COPD.
-Overall prognosis is poor and the risk of recurrent admission is very high.
--- NOTE | 2023-09-16 16:38 | CM ---
CM following for DC planning needs.
Noted that patient was adm to 08/27-09/09; DC'ed to [facility]. Prior to this admission, patient was residing w/ son/ dtr. in a private 2 story home w/ 1st floor set up/ Pt. was ambulatory with a RW. Other DME in the home include SPC, WC,
shower chair.
Met w/ patient at bedside to complete initial assessment. Pt. informs that she liked being at [facility] and would like to return upon DC to complete her rehab. Message left for admissions at [facility] whether they can accept upon DC.
Will follow.
[2023-09-16 17:15] LABS: Glucose - Point of Care 160 mg/dl (70-99)
[2023-09-16] MEDS: HYDROPHOR 1 APPLIC TOPICAL (17:15)
[2023-09-16 17:44] LABS: Troponin I 0.017 ng/ml
--- NOTE | 2023-09-16 17:57 | PTCARENOTE ---
Pt admitted from [facility] via ED with shortness of breath and chronic heart failure. Resp rate 28 on admission to IVU , pt comfortable on 4L oxygen with O2 sat of 93%. Difficult to assess urine output with her body habitus, external urinary
device not really functional, pt incontinent of a large amount of urine. Bilateral lymphedema legs wrapped with mona wraps. Multiple minor skin issues present under left breast, left groin crease, sacrum and lower left leg. WOC by RN for more
appropriate bed. Pt turns very well. Telemetry shows sinus rhythm with frequent PVC's.
[2023-09-16] MEDS: NOVOLOG FLEXPEN-LOW RESISTANCE 1 UNITS SC (18:14)
[2023-09-16] MEDS: LOVENOX 40 MG SC (18:14)
[2023-09-16] MEDS: ADVAIR HFA 115/21 MCG INHALER 2 PUFF INH (19:42)
[2023-09-16] MEDS: APRESOLINE 50 MG PO (20:02)
[2023-09-16] MEDS: DESENEX/MITRAZOL/ZEASORB 1 APPLIC TOPICAL (20:02)
[2023-09-16 21:35] LABS: Glucose - Point of Care 220 mg/dl (70-99)
[2023-09-16] MEDS: LIPITOR 20 MG PO (22:23)
[2023-09-17] VITALS (10 sets, daily range): BP systolic 103–153; BP diastolic 60–91; PULSE 64–67; O2SAT 98–99; BMI 43.4
--- NOTE | 2023-09-17 01:12 | PTCARENOTE ---
Pt. remains NSR with frequent PVC's on the monitor, VSS. Visibly HUA with turning/moving in bed, but comfortable on 4L O2 with pulse ox in the mid 90's. Crackles heard in left lung base. Purewick on and functioning draining clear karen urine.
Pt. currently sleeping.
[2023-09-17 03:01] LABS: % Basophils 0.5 % (0-2); % Immature Granulocytes 0.3 % (0-0.5); % Lymphocytes 20.9 % (20.5-51.1); % Monocytes 6.9 % (1.7-9.3); % Neutrophils 71.4 % (42.2-75.2); Absolute Lymphocytes 1.3 10^3/uL (1.2-3.4); Absolute Monocytes 0.4 10^3/uL (0.1-0.6); Absolute Neutrophils 4.6 10^3/uL (1.4-6.5); Mean Corp Hgb Conc. 31.3 g/dL (33.0-37.0); Mean Corpuscular Hgb 27.5 pg (27.0-31.0); Mean Corpuscular Volume 87.9 fL (81.0-99.0); Mean Platelet Volume 9.8 fL (7.4-10.4); Nucleated Red Blood Cells % 0 %; Platelet Count 255 10^3/uL (130-400); Red Blood Cell Count 3.64 10^6/uL (4.20-5.40); Red Cell Dist. Width 17.8 % (11.5-14.5); White Blood Cell Count 6.4 10^3/uL (4.8-10.8)
[2023-09-17 03:07] LABS: Blood Urea Nitrogen 44 mg/dl (7-17); Calcium 7.9 mg/dl (8.4-10.2); Carbon Dioxide 33 mmol/L (22-30); Chloride 106 mmol/L (98-107); Estimated Creatinine Clearance 42 ml/min; Glucose 132 mg/dl (70-99); Potassium 4.2 mmol/L (3.5-5.1); Sodium 142 mmol/L (135-145); eGFR 41.83
[2023-09-17 07:27] LABS: Glucose - Point of Care 95 mg/dl (70-99)
[2023-09-17] MEDS: ADVAIR HFA 115/21 MCG INHALER 2 PUFF INH ×2 (07:28→19:35)
--- NOTE | 2023-09-17 07:50 | W.PN.HOSP.TC ---
Today's Communication/Plan
-
see bold
Assessment / Plan
Assessment / Plan
Gen: NAD, AAOx3.
Eyes: EOMI, PERRLA, no scleral icterus.
Neck: supple. +JVD
CV: RRR, +S1/S2, 1/6 systolic murmur
Resp: rales in the L base
Abd: +BS, soft, NT, ND
Skin: 2+ B/L LE edema.
Neuro: CN 2-12 intact, non-focal.
Psych: Normal mood and affect.
CXR: Cardiomegaly, unchanged. Increased pulmonary vascular markings which could represent mild CHF or acute pulmonary edema.
Acute on chronic hypoxic respiratory failure due to acute on chronic HFrEF:
-currently on 4L NC O2 (baseline 2L NC O2)
-CXR above
-proBNP 17,100
-cont IV Lasix, daily wts, I/Os, FR
-cont BB
-cardiology following
Other problems:
CKD3b
Essential hypertension: cont Hydralazine/BB
DM2: SSI/accuchecks
Hyperlipidemia: cont statin
Asthma/COPD: Cont Advair
Obstructive sleep apnea
h/o right lower extremity DVT
Morbid obesity due to excess calories
FULL/Lovenox
Anticipated Discharge: 24 - 48 hours
Subjective/Interval History
-
Date of Service: September 17, 2023
SOB improving.
Objective Data
-
Labs:
Laboratory Results
09/17/23
02:02
WBC 6.4
Hgb 10.0 L
Hct 32.0 L
Plt Count 255
Sodium 142
Potassium 4.2
Chloride 106
Carbon Dioxide 33 H
BUN 44 H
Creatinine 1.3 H
Glucose 132 H
Calcium 7.9 L
Vital Signs:
Vital Signs
Temp Pulse Resp BP Pulse Ox
97.4 F 77 16 151/79 93
09/17/23 07:21 09/17/23 07:33 09/17/23 07:33 09/17/23 01:54 09/17/23 07:33
I&O
09/16/23 09/17/23 09/18/23
06:59 06:59 06:59
Intake Total 560 / 560
Output Total 550 / 550
Balance
--- NOTE | 2023-09-17 07:52 | W.PN.CARDCBS ---
Addendum entered and electronically signed by Sixto Pendleton MD 09/17/23 14:41:
I saw and examined the patient.
The Pipe Blanks Cut Off Saw Operator's note was reviewed and I agree with the note.
Comment:
GEN: No distress, awake, Ox3
HEENT: supple, anicteric, mmm
LUNGS: dec BS at bases
CV: Irreg, S1/S2, / syst LSB, no gallop
ABD: soft, BS+, NT/ND
EXT: +3
NEURO: Gross non-focal
SKIN: severe chronic stasis changes
Plan:
Continue Lasix 80 mg IV daily. Creatinine is overall stable at 1.3.
Continue low-dose Toprol and rate control strategy for A-fib.
Will add Imdur 30 mg daily to hydralazine to help with afterload reduction. LVEF on last echo was 45-50%
Original Note:
Today's Communication / Plan
-
Ongoing diuresis, will need to establish a new dry weight at d/c
Impression / Plan
-
PCP: Cris Avilez PA-C
Senior Coldfusion Developer: Dr. Ott
Impression:
Acute on chronic hypoxic respiratory failure
Acute on chronic heart failure with mildly reduced ejection fraction, proBNP 11,300
CKD 3b
Recent admission for COVID-19 treated with Paxlovid and Decadron 07/27/2021 - 07/31/2023
Recent admission for acute HF 08/28/23 until 09/10/23
Chronic hypoxic respiratory failure on home oxygen 1-2 L via NC
Frequent PVCs and bigeminy
Asthma/COPD
Chronic Lymphedema and chronic venous stasis changes
Hypertension
HLD
DM II
MARIAMA
Peripheral Neuropathy
History of DVT
Morbid Obesity
Medication and dietary non-adherence
Echo 08/22/21:�LVEF 53%, mild LVH, Mild MR, Mild 20/10 PRECIOUS 1.7cm2, mild AI
Echo 03/24/22: Technically limited study and patient was scanned in a wheelchair. No regional wall motion abnormalities are seen. LV ejection fraction is 53% by Phan's biplane method�of discs. Mild left ventricular hypertrophy. Normal diastolic
function. Mild mitral regurgitation is seen. This may be underestimated due to acoustic shadowing. Mild aortic stenosis. Peak/mean gradients across the aortic valve 20/10 mmHg. Using an LVOT diameter�of 2.0 cm the aortic valve by the Continuity
equation is calculated at 1.7 cm2. Mild aortic regurgitation.
Echo 12/18/2022:�EF 40-45%, global hypokinesis, moderate cLVH, stage II diastolic dysfunction, mild MS, mild MR, severely dilated LA, moderate with peak/mean gradients 45/20 mmHg, PRECIOUS 1.2 cm2, mild AR, mild TR, estimated PAP 42 mmHg,
Echo 03/16/2023: EF 45-50%, moderate cLVH, global hypokinesis, mild MR, mild to moderate with peak/mean gradients 21/12 mmHg, mild TR, estimated PAP 30-35 mmHg
Plan:
-Weight is down 3 lbs overnight with Lasix 80 mg IV daily diuresis. Patient was taking Lasix 80 mg PO daily prior to admission. Dry weight at last discharge was 254 lbs and patient now weighs 245 lbs on 09/17/23.
-Cre last admission was 1.6 to 1.9. Cre was 1.2 on 09/16/23 and up to 1.3 on 09/17/23. Will follow Cre
-Previously managed with Cardizem CD for frequent, asymptomatic PVCs. During one of her recent admissions she was changed to Toprol XL 12.5 mg daily. Will continue for now, watch for bradycardia.
-Previously declined SGLT-2 due to risk of infection and she is almost bedbound and incontinent.
-Previously lisinopril caused SOB. Continue hydralazine and might consider consider adding Imdur at some point
-Missed days of inhaler therapy and oxygen was not working overnight at [facility]. She has a h/o COPD.
-Overall prognosis is poor and the risk of recurrent admission is very high.
HPI: Patient came to [facility] with hypoxia and cardiology is consulted for acute HF. Patient was just admitted to 08/28/23 until 09/10/23 with acute HF and generally she declines SNF and VN recommendations, but this time she was a max assist of 2 and so
she and her family were agreeable to rehab at [facility]. patient says that she missed days of her usual inhaler therapy because it was non-formulary and she had to wait for family to bring from home. Then last night her oxygen tubing kept filling
up with water. Patient wears oxygen at 2 L NC continuously, but now requiring 4 L. She says that she was unable to turn back and forth with changing this AM and so she was sent to [facility]. Her pro-BNP was 98615 which is moderately elevated for her.
Troponin normal. No chest pain. She was given Lasix 80 mg IV x1 in the ER with increased urine output.
Progress Note - Senior Coldfusion Developer
Subjective
Date of Service: September 17, 2023
She feels better
Objective
Labs:
09/17/23 02:02
09/17/23 02:02
Labs
Hgb 10.0 g/dL (12.0-16.0) L 09/17/23 02:02
Hct 32.0 % (37.0-47.0) L 09/17/23 02:02
Plt Count 255 10^3/uL (130-400) 09/17/23 02:02
PT 19.1 Sec (11.4-14.6) H 09/16/23 09:19
INR 1.59 09/16/23 09:19
Sodium 142 mmol/L (135-145) 09/17/23 02:02
Potassium 4.2 mmol/L (3.5-5.1) 09/17/23 02:02
BUN 44 mg/dl (7-17) H 09/17/23 02:02
Creatinine 1.3 mg/dL (0.6-1.0) H 09/17/23 02:02
Glucose 132 mg/dl (70-99) H 09/17/23 02:02
Troponins
09/16/23 09/16/23 09/16/23
09:19 17:10 20:59
Troponin I 0.025 0.017 D Cancelled
Vital Signs and I&O:
Vital Signs
Temp Pulse Resp BP Pulse Ox
97.4 F 77 16 151/79 93
09/17/23 07:21 09/17/23 07:33 09/17/23 07:33 09/17/23 01:54 09/17/23 07:33
Vital Signs
Temp Pulse Resp BP Pulse Ox
97.4 F 77 16 151/79 93
09/17/23 07:21 09/17/23 07:33 09/17/23 07:33 09/17/23 01:54 09/17/23 07:33
Intake & Output
09/15/23 09/16/23 09/17/23 09/18/23
06:59 06:59 06:59 06:59
Intake Total 560 / 560
Output Total 550 / 550
Balance 10
Physical Exam
Physical Exam
General: AAOX3
HEENT: EOMI
Heart: Regular with ectopy
Lungs: Wearing oxygen at 4 L NC. No wheeze B/L.
Abd: +BS
Ext: Chronic lymphedema changes. +3 B/L LE hard non-pitting edema. No clubbing, cyanosis or lesions B/L
Neuro: No focal or lateralizing weakness
Skin: Warm, dry and pink. No rash
[2023-09-17] MEDS: DESENEX/MITRAZOL/ZEASORB 1 APPLIC TOPICAL ×2 (09:00→20:12)
[2023-09-17] MEDS: NOVOLOG FLEXPEN-LOW RESISTANCE SC ×3 (09:12→18:23)
[2023-09-17] MEDS: LASIX 80 MG IV (09:13)
[2023-09-17] MEDS: TOPROL XL 12.5 MG PO (09:14)
[2023-09-17] MEDS: ASPIR LOW (ENTERIC COATED) 81 MG PO (09:14)
[2023-09-17] MEDS: APRESOLINE 50 MG PO ×2 (09:14→20:12)
--- NOTE | 2023-09-17 10:15 | WOUNDNOTE ---
MONICA RN note: Patient admitted from SNF with SOB. Recently discharged on 09/09
See H&P for complete history.
PMH: CHF, aortic stenosis, HTN, chronic lymphedema, RLE DVT 10/2019, venous insufficiency, asthma, DM, anemia, sleep apnea, obesity, pulmonary HTN, CKD3a,
Wound Location and type/assessment: Patient admitted with newly healed stage 2 on buttocks and sacrum. MASD in skin folds of breast and groin, venous appearing wounds right and left LE, abrasion left groin (patient states this is from diaper use at
[facility]). Known to service from previous admissions. Legs +LE lipodermatosclerosis with chronic dark discolored legs. Has compression stockings(Farrow wraps) and lymphedema pumps at home that family has to help her to use. Blanchable red heels. RN
Margarita assisted with turning/repositioning, patient unable to assist and gets easily short of breath with exertion. Purwick in place.
Appetite: good.
Pressure redistribution devices in place: Static air overlay ordered. Air chair cushion in use, pillows under calves.
Plan: Silicone foams applied to buttocks to protect newly healed skin Continue with fungal powder to skin folds and barrier ointment to abrasion on left groin. Dry dressing to LE wounds. Foams applied to heels. Will confirm orders with hospitalist
and updated nurse. Care plan to be updated and will follow as needed.
--- NOTE | 2023-09-17 10:51 | WOUNDNOTE ---
RIGHT LEG WOUND
--- NOTE | 2023-09-17 11:27 | CM ---
CM following for DC planning needs.
Met w/ patient at bedside. She reports that she is feeling well.
Reviewed DC plan for return to [facility].
Spoke w/ admissions/ Farzana @ . She informs that patient is NOT a bed hold, however, they will accept back upon DC pending bed availability.
Will need PT-OT evaluations; will send referral then to [facility] for review.
Plan: SNF
[2023-09-17 12:28] LABS: Glucose - Point of Care 111 mg/dl (70-99)
[2023-09-17 16:54] LABS: Glucose - Point of Care 120 mg/dl (70-99)
[2023-09-17] MEDS: LOVENOX 40 MG SC (18:24)
--- NOTE | 2023-09-17 19:39 | PTCARENOTE ---
Pt less short of breath at rest , OOB to chair and commode with minimal assist of one. Pt takes 1 minute to recover her breathing after exertion but she states she feels better. Pt diuresing slowly. Pt seen by wound home sales consultant today, all wounds
dressed and documented. Telemetry shows sinus rhythm with frequent PVC's .
[2023-09-17] MEDS: LIPITOR 20 MG PO (20:12)
--- NOTE | 2023-09-17 22:31 | PTCARENOTE ---
Assisted to bed using rolling walker. Patient has shortness of breath with exertion and can not lye flat. Oxygen 3 liters NC, POX 98%, purse lip breathing and recovers with rest, fine crackles left base. Dependent lymphedema, legs, discolored dry
lesions. Purwick replaced in bed. Call disla in reach
[2023-09-17 22:41] LABS: Glucose - Point of Care 99 mg/dl (70-99)
[2023-09-18] VITALS (12 sets, daily range): BP systolic 115–162; BP diastolic 52–125; PULSE 60; O2SAT 96; BMI 43.4
[2023-09-18 07:13] LABS: Glucose - Point of Care 94 mg/dl (70-99)
[2023-09-18] MEDS: ADVAIR HFA 115/21 MCG INHALER 2 PUFF INH ×2 (07:18→20:42)
--- NOTE | 2023-09-18 07:42 | W.PN.HOSP.TC ---
Today's Communication/Plan
-
see bold
Assessment / Plan
Assessment / Plan
Gen: NAD, AAOx3.
Eyes: EOMI, PERRLA, no scleral icterus.
Neck: supple. +JVD
CV: remains RRR, +S1/S2, 1/6 systolic murmur
Resp: faint rales in the bases
Abd: +BS, soft, NT, ND
Skin: 1-2+ B/L LE edema.
Neuro: CN 2-12 intact, non-focal.
Psych: Normal mood and affect.
CXR: Cardiomegaly, unchanged. Increased pulmonary vascular markings which could represent mild CHF or acute pulmonary edema.
Acute on chronic hypoxic respiratory failure due to acute on chronic HFrEF:
-currently on 3L NC O2 (baseline 2L NC O2)
-CXR above
-proBNP 17,100
-cont IV Lasix, daily wts, I/Os, FR
-cont Hydralazine/BB/Imdur
-cardiology following
Other problems:
CKD3b
Essential hypertension: cont Hydralazine/BB/Imdur
DM2: SSI/accuchecks
Hyperlipidemia: cont statin
Asthma/COPD: Cont Advair
Obstructive sleep apnea
h/o right lower extremity DVT
Morbid obesity due to excess calories
FULL/Lovenox
Anticipated Discharge: 24 - 48 hours
Subjective/Interval History
-
Date of Service: September 18, 2023
Denies CP/SOB at rest but c/o HUA.
Objective Data
-
Vital Signs:
Vital Signs
Temp Pulse Resp BP Pulse Ox
97.2 F 68 14 130/83 95
09/18/23 07:09 09/18/23 07:21 09/18/23 07:21 09/18/23 07:12 09/18/23 07:21
I&O
09/17/23 09/18/23 09/19/23
06:59 06:59 06:59
Intake Total 560 / 560 480 / 480
Output Total 550 / 550 900 / 900
Balance -420 / -420
--- NOTE | 2023-09-18 08:40 | PTCARENOTE ---
Rec'd pt AAOx3 w/no c/o CP. Pt very dyspneic on exertion, mildy dyspneic at rest. Assisted pt OOB to CH w/2P contact guard assist & RW. Pt on 3L O2 via NC. O2 Sats after activity 92% on the 3L, pt recovered to 97% on the 3L shortly after. Pt
awaiting breakfast, call disla within reach & no addtl needs at this time.
[2023-09-18] MEDS: NOVOLOG FLEXPEN-LOW RESISTANCE SC ×3 (09:09→17:35)
[2023-09-18 09:59] LABS: Blood Urea Nitrogen 46 mg/dl (7-17); Carbon Dioxide 31 mmol/L (22-30); Chloride 103 mmol/L (98-107); Estimated Creatinine Clearance 46 ml/min; Glucose 153 mg/dl (70-99); Potassium 3.8 mmol/L (3.5-5.1); Sodium 143 mmol/L (135-145); eGFR 46.05
[2023-09-18] MEDS: LASIX 80 MG IV (10:35)
[2023-09-18] MEDS: APRESOLINE 50 MG PO ×2 (10:36→19:52)
[2023-09-18] MEDS: ASPIR LOW (ENTERIC COATED) 81 MG PO (10:36)
[2023-09-18] MEDS: HYDROPHOR 1 APPLIC TOPICAL (10:36)
[2023-09-18] MEDS: TOPROL XL 12.5 MG PO (10:36)
[2023-09-18] MEDS: DESENEX/MITRAZOL/ZEASORB 1 APPLIC TOPICAL ×2 (10:37→19:53)
--- NOTE | 2023-09-18 10:54 | CM ---
CM following for DC planning needs.
Met w/ patient at bedside. She reports that she feels well, though is still complaining of SOB.
Plan remains for return to [facility] [place] to complete rehabilitation then return home.
Will update admissions today. Will need to follow up on Thursday regarding return admission.
Goal is for return to [facility] for continued rehab.
No authorization required for transfer.
[2023-09-18 11:22] LABS: Glucose - Point of Care 149 mg/dl (70-99)
--- NOTE | 2023-09-18 12:13 | W.PN.CARDCBS ---
Addendum entered and electronically signed by Giuseppe Murillo DO 09/18/23 14:08:
I saw and examined the patient.
The Manager Cosmetic's note was reviewed and I agree with the note.
Comment:
Reported HUA. No Cp, palpitations, lh, dizziness, near syncope, syncope, or weakness
GEN: No distress, awake, Ox3
HEENT: supple, anicteric, mmm
LUNGS: Mildly decreased BS CTA, no wheezes/rales
CV: Reg, S1/S2, 1/6 syst murmur
ABD: soft, BS+, NT/ND
EXT: +1-2 LE edema, Rt >Lt. Skin changes c/w chronic venous stasis
NEURO: Gross non-focal
SKIN: hyperpigmentation of LE, consistent with chronic venous stasis
A/P as below
IV Diuresis, monitor on telemetry
Intake/Outputs, daily weights
Replete electrolytes K>4, Mg >2
Imdur
Original Note:
Today's Communication / Plan
-
Continue IV diuresis
Replete K+
Start Imdur 30 mg
Wean oxygen as tolerated
Impression / Plan
-
PCP: Cris Avilez PA-C
Blow Molding Machine Operator: Dr. Ott
Impression:
Presented 09/16/2023 with progressively SOB
Acute on chronic hypoxic respiratory failure
Acute on chronic heart failure with mildly reduced ejection fraction, proBNP 17,100
CKD 3b
Recent admission for COVID-19 treated with Paxlovid and Decadron 07/27/2021 - 07/31/2023
Recent admission for acute HF 08/28/23 until 09/10/23
Chronic hypoxic respiratory failure on home oxygen 1-2 L via NC
Frequent PVCs and bigeminy
Asthma/COPD
Chronic Lymphedema and chronic venous stasis changes
Hypertension
HLD
DM II
MARIAMA
Peripheral Neuropathy
History of DVT
Morbid Obesity
Medication and dietary non-adherence
Echo 08/22/21:�LVEF 53%, mild LVH, Mild MR, Mild 20/10 PRECIOUS 1.7cm2, mild AI
Echo 03/24/22: Technically limited study and patient was scanned in a wheelchair. No regional wall motion abnormalities are seen. LV ejection fraction is 53% by Phan's biplane method�of discs. Mild left ventricular hypertrophy. Normal diastolic
function. Mild mitral regurgitation is seen. This may be underestimated due to acoustic shadowing. Mild aortic stenosis. Peak/mean gradients across the aortic valve 20/10 mmHg. Using an LVOT diameter�of 2.0 cm the aortic valve by the Continuity
equation is calculated at 1.7 cm2. Mild aortic regurgitation.
Echo 12/18/2022:�EF 40-45%, global hypokinesis, moderate cLVH, stage II diastolic dysfunction, mild MS, mild MR, severely dilated LA, moderate with peak/mean gradients 45/20 mmHg, PRECIOUS 1.2 cm2, mild AR, mild TR, estimated PAP 42 mmHg,
Echo 03/16/2023: EF 45-50%, moderate cLVH, global hypokinesis, mild MR, mild to moderate with peak/mean gradients 21/12 mmHg, mild TR, estimated PAP 30-35 mmHg
Plan:
-Volume status is difficult to assess. Weight is down at least 4 lbs if not more since depending on accuracy of scale since admission with Lasix 80 mg IV daily diuresis. Patient was taking Lasix 80 mg PO daily prior to admission. Dry weight at last
discharge was 254 lbs and patient now weighs 244 lbs on 09/18/23.
-Cre last admission was 1.6 to 1.9. Cre remains stable 1.2. Will follow Cre
-Previously managed with Cardizem CD for frequent, asymptomatic PVCs. During one of her recent admissions she was changed to Toprol XL 12.5 mg daily. Will continue for now. Uptitration limited by bradycardia.
-Previously declined SGLT-2 due to risk of infection and she is almost bedbound and incontinent.
-Previously lisinopril caused SOB. Continue hydralazine. BP will allow for addition of isosorbide 30 mg (started 09/18/23)
-On chronic oxygen with baseline flow 2 lpm, still requiring 3 lpm via NC at this time. Wean down as tolerated. She has a h/o COPD.
-Overall prognosis is poor and the risk of recurrent admission is very high.
HPI: Patient came to [facility] with hypoxia and cardiology is consulted for acute HF. Patient was just admitted to 08/28/23 until 09/10/23 with acute HF and generally she declines SNF and VN recommendations, but this time she was a max assist of 2 and so
she and her family were agreeable to rehab at [facility]. patient says that she missed days of her usual inhaler therapy because it was non-formulary and she had to wait for family to bring from home. Then last night her oxygen tubing kept filling
up with water. Patient wears oxygen at 2 L NC continuously, but now requiring 4 L. She says that she was unable to turn back and forth with changing this AM and so she was sent to [facility]. [place]BNP [place] 87857 which is moderately elevated for her.
Troponin normal. No chest pain. She was given Lasix 80 mg IV x1 in the ER with increased urine output.
Progress Note - Blow Molding Machine Operator
Subjective
Date of Service: September 18, 2023
Patient and examined. Sitting up in chair eating lunch. Feeling better but still c/o of SOB with any movement, activity. Still on 3 LPM
Objective
Labs:
09/17/23 02:02
09/18/23 09:21
Labs
Hgb 10.0 g/dL (12.0-16.0) L 09/17/23 02:02
Hct 32.0 % (37.0-47.0) L 09/17/23 02:02
Plt Count 255 10^3/uL (130-400) 09/17/23 02:02
PT 19.1 Sec (11.4-14.6) H 09/16/23 09:19
INR 1.59 09/16/23 09:19
Sodium 143 mmol/L (135-145) 09/18/23 09:21
Potassium 3.8 mmol/L (3.5-5.1) 09/18/23 09:21
BUN 46 mg/dl (7-17) H 09/18/23 09:21
Creatinine 1.2 mg/dL (0.6-1.0) H 09/18/23 09:21
Glucose 153 mg/dl (70-99) H 09/18/23 09:21
Troponins
09/16/23 09/16/23 09/16/23
09:19 17:10 20:59
Troponin I 0.025 0.017 D Cancelled
Vital Signs and I&O:
Vital Signs
Temp Pulse Resp BP Pulse Ox
97.4 F 76 18 130/83 98
09/18/23 11:22 09/18/23 11:22 09/18/23 11:22 09/18/23 07:12 09/18/23 11:22
Vital Signs
Temp Pulse Resp BP Pulse Ox
97.4 F 76 18 130/83 98
09/18/23 11:22 09/18/23 11:22 09/18/23 11:22 09/18/23 07:12 09/18/23 11:22
Intake & Output
09/16/23 09/17/23 09/18/23 09/19/23
06:59 06:59 06:59 06:59
Intake Total 560 / 560 480 / 480 480 / 480
Output Total 550 / 550 900 / 900
Balance -420 / -420 480 / 480
Physical Exam
Physical Exam
GEN: No distress, awake, Ox3
HEENT: supple, anicteric, mmm
LUNGS: Mildly decreased BS CTA, no wheezes/rales
CV: Reg, S1/S2, 1/6 syst murmur
ABD: soft, BS+, NT/ND
EXT: +1-2 LE edema, Rt >Lt. Skin changes c/w chronic venous stasis
NEURO: Gross non-focal
SKIN: hyperpigmentation of LE, consistent with chronic venous stasis
[2023-09-18] MEDS: IMDUR (EXTENDED RELEASE) 30 MG PO (14:58)
[2023-09-18] MEDS: KCL 40 MEQ PO (14:58)
[2023-09-18] MEDS: LOVENOX 40 MG SC (17:35)
[2023-09-18 17:36] LABS: Glucose - Point of Care 107 mg/dl (70-99)
[2023-09-18] MEDS: LIPITOR 20 MG PO (19:52)
--- NOTE | 2023-09-18 21:51 | PTCARENOTE ---
Pt OOB in the chair- stand by assist w/ rw to the bedside commode- Jackie care- and purwick placed for the evening. SR w/ PVCs and BBB on the monitor. POC discussed.
[2023-09-18 22:42] LABS: Glucose - Point of Care 124 mg/dl (70-99)
[2023-09-19] VITALS (7 sets, daily range): BP systolic 106–154; BP diastolic 47–72; BMI 43.5
[2023-09-19 05:57] LABS: Blood Urea Nitrogen 48 mg/dl (7-17); Calcium 7.8 mg/dl (8.4-10.2); Carbon Dioxide 31 mmol/L (22-30); Chloride 102 mmol/L (98-107); Estimated Creatinine Clearance 46 ml/min; Glucose 87 mg/dl (70-99); Potassium 4.4 mmol/L (3.5-5.1); Sodium 141 mmol/L (135-145); eGFR 46.05
[2023-09-19 07:18] LABS: Glucose - Point of Care 96 mg/dl (70-99)
[2023-09-19] MEDS: NOVOLOG FLEXPEN-LOW RESISTANCE SC ×3 (07:58→16:48)
[2023-09-19] MEDS: IMDUR (EXTENDED RELEASE) 30 MG PO (07:59)
[2023-09-19] MEDS: TOPROL XL 12.5 MG PO (07:59)
[2023-09-19] MEDS: APRESOLINE 50 MG PO ×2 (07:59→19:34)
[2023-09-19] MEDS: ASPIR LOW (ENTERIC COATED) 81 MG PO (07:59)
[2023-09-19] MEDS: DESENEX/MITRAZOL/ZEASORB 1 APPLIC TOPICAL ×2 (07:59→19:33)
[2023-09-19] MEDS: ADVAIR HFA 115/21 MCG INHALER 2 PUFF INH ×2 (08:11→18:26)
[2023-09-19] MEDS: LASIX 80 MG IV (09:04)
--- NOTE | 2023-09-19 09:51 | W.PN.HOSP.TC ---
Today's Communication/Plan
-
continue IV Lasix
input of cardio noted and appreciated
Assessment / Plan
Assessment / Plan
CXR: Cardiomegaly, unchanged. Increased pulmonary vascular markings which could represent mild CHF or acute pulmonary edema.
wt 115.6-->111.3kg
Acute on chronic hypoxic respiratory failure due to acute on chronic HFrEF:
-currently on 3L NC O2 (baseline 2L NC O2)
-CXR above
-proBNP 17,100
-cont IV Lasix, daily wts, I/Os, FR
-cont Hydralazine/BB/Imdur
-cardiology following
BUN/Creat 45/1.2-->44/1.3-->46/1.2-->48/1.2
Echo 03/21: Left ventricle is mildly dilated. Moderate concentric left ventricular
�hypertrophy (LV wall thickness is 1.5 cm, not 1.2 cm). Mildly reduced left
�ventricular systolic function. Left ventricular ejection fraction is 45-50%.
�Global hypokinesis.
�Mildly enlarged LA, normal sized RA.
�Mild mitral regurgitation.
�Mild to moderate aortic stenosis with peak and mean gradients of 21 and 12 mm
�Hg and Compared to prior echo from 12/18/22,peak and mean aortic valve gradients
�previously 45 and 30 mm Hg and� LA size was previously severely enlarged and RA
�was moderately enlarged.
Other problems:
CKD3b
Essential hypertension: cont Hydralazine/BB/Imdur
DM2: SSI/accuchecks
Hyperlipidemia: cont statin
Asthma/COPD: Cont Advair
Obstructive sleep apnea
h/o right lower extremity DVT
Morbid obesity due to excess calories
FULL/Lovenox
Anticipated Discharge: > 48 hours
Subjective/Interval History
-
Date of Service: September 19, 2023
Awake, alert, conversant
Objective Data
-
Labs:
Laboratory Results
09/19/23
04:04
Sodium 141
Potassium 4.4
Chloride 102
Carbon Dioxide 31 H
BUN 48 H
Creatinine 1.2 H
Glucose 87
Calcium 7.8 L
Vital Signs:
Vital Signs
Temp Pulse Resp BP Pulse Ox
97.5 F 62 18 154/70 95
09/19/23 07:14 09/19/23 08:12 09/19/23 08:12 09/19/23 07:59 09/19/23 08:12
I&O
09/18/23 09/19/23 09/20/23
06:59 06:59 06:59
Intake Total 480 / 480 480 / 480
Output Total 900 / 900
Balance -420 / -420 480 / 480
Review of Systems
-
History Source: Patient and Coordinated Provider
Constitutional: Denies Fever
EENT: Reports No Symptoms Reported
Respiratory: Reports No Symptoms (no sob at rest)
Cardiac: Denies Chest Pain or Palpitations
Abdomen/GI: Reports No Symptoms
Physical Exam
-
General: Well Developed, Well Nourished and No Apparent Distress
HEENT: Normocephalic, Atraumatic and Moist Mucous Membranes
Cardiac: Regular Rhythm, S1/S2 and Murmur (1/6sem)
GI: Soft, Nontender and Nondistended
Musculoskeletal: No Clubbing and No Cyanosis; Negative No Edema (1+ bilateral chronic edema with severe stasis dermatitis changes)
Skin: Rash (LE stasis dermatitis)
--- NOTE | 2023-09-19 10:21 | W.PN.CARDCBS ---
Today's Communication / Plan
-
Continue IV diuresis; afterload reduction with imdur
Strict I/Os
Wean O2 as tolerated
Goal K >4, Mg >2 with diuresis
Impression / Plan
-
PCP: Cris Avilez PA-C
Applications Systems Engineer: Dr. Ott
Impression:
Presented 09/16/2023 with progressively SOB
Acute on chronic hypoxic respiratory failure
Acute on chronic heart failure with mildly reduced ejection fraction, proBNP 17,100
CKD 3b
Recent admission for COVID-19 treated with Paxlovid and Decadron 07/27/2021 - 07/31/2023
Recent admission for acute HF 08/28/23 until 09/10/23
Chronic hypoxic respiratory failure on home oxygen 1-2 L via NC
Frequent PVCs and bigeminy
Asthma/COPD
Chronic Lymphedema and chronic venous stasis changes
Hypertension
HLD
DM II
MARIAMA
Peripheral Neuropathy
History of DVT
Morbid Obesity
Medication and dietary non-adherence
Echo 08/22/21:�LVEF 53%, mild LVH, Mild MR, Mild 20/10 PRECIOUS 1.7cm2, mild AI
Echo 03/24/22: Technically limited study and patient was scanned in a wheelchair. No regional wall motion abnormalities are seen. LV ejection fraction is 53% by Phan's biplane method�of discs. Mild left ventricular hypertrophy. Normal diastolic
function. Mild mitral regurgitation is seen. This may be underestimated due to acoustic shadowing. Mild aortic stenosis. Peak/mean gradients across the aortic valve 20/10 mmHg. Using an LVOT diameter�of 2.0 cm the aortic valve by the Continuity
equation is calculated at 1.7 cm2. Mild aortic regurgitation.
Echo 12/18/2022:�EF 40-45%, global hypokinesis, moderate cLVH, stage II diastolic dysfunction, mild MS, mild MR, severely dilated LA, moderate with peak/mean gradients 45/20 mmHg, PRECIOUS 1.2 cm2, mild AR, mild TR, estimated PAP 42 mmHg,
Echo 03/16/2023: EF 45-50%, moderate cLVH, global hypokinesis, mild MR, mild to moderate with peak/mean gradients 21/12 mmHg, mild TR, estimated PAP 30-35 mmHg
Plan:
-Volume status is difficult to assess. Weight is down at least 4 lbs if not more since depending on accuracy of scale since admission with Lasix 80 mg IV daily diuresis. Patient was taking Lasix 80 mg PO daily prior to admission. Dry weight at last
discharge was 254 lbs and patient now weighs 244 lbs on 09/18/23; no change 09/18.; inaccurate/unmeasured I/Os
-Cre last admission was 1.6 to 1.9. Cre remains stable 1.2. Will follow Cre
-Previously managed with Cardizem CD for frequent, asymptomatic PVCs. During one of her recent admissions she was changed to Toprol XL 12.5 mg daily. Will continue for now. Uptitration limited by bradycardia.
-Previously declined SGLT-2 due to risk of infection and she is almost bedbound and incontinent.
-Previously lisinopril caused SOB. Continue hydralazine. BP will allow for addition of isosorbide 30 mg (started 09/18/23)
-On chronic oxygen with baseline flow 2 lpm, still requiring 3 lpm via NC at this time. Wean down as tolerated. She has a h/o COPD.
-Overall prognosis is poor and the risk of recurrent admission is very high.
HPI: Patient came to [facility] with hypoxia and cardiology is consulted for acute HF. Patient was just admitted to 08/28/23 until 09/10/23 with acute HF and generally she declines SNF and VN recommendations, but this time she was a max assist of 2 and so
she and her family were agreeable to rehab at [facility]. patient says that she missed days of her usual inhaler therapy because it was non-formulary and she had to wait for family to bring from home. Then last night her oxygen tubing kept filling
up with water. Patient wears oxygen at 2 L NC continuously, but now requiring 4 L. She says that she was unable to turn back and forth with changing this AM and so she was sent to [facility]. [place] [id number] which is moderately elevated for her.
Troponin normal. No chest pain. She was given Lasix 80 mg IV x1 in the ER with increased urine output.
Progress Note - Applications Systems Engineer
Subjective
Date of Service: September 19, 2023
Patient seen and examined this morning. No acute events overnight. Patient resting comfortably in chair. Notes HUA but improved. No sob at rest. No cp, palpitations, lh, dizziness or weakness. Tele SB with rare PVCs.
Objective
Labs:
09/17/23 02:02
09/19/23 04:04
Labs
Hgb 10.0 g/dL (12.0-16.0) L 09/17/23 02:02
Hct 32.0 % (37.0-47.0) L 09/17/23 02:02
Plt Count 255 10^3/uL (130-400) 09/17/23 02:02
PT 19.1 Sec (11.4-14.6) H 09/16/23 09:19
INR 1.59 09/16/23 09:19
Sodium 141 mmol/L (135-145) 09/19/23 04:04
Potassium 4.4 mmol/L (3.5-5.1) 09/19/23 04:04
BUN 48 mg/dl (7-17) H 09/19/23 04:04
Creatinine 1.2 mg/dL (0.6-1.0) H 09/19/23 04:04
Glucose 87 mg/dl (70-99) 09/19/23 04:04
Troponins
09/16/23 09/16/23
17:10 20:59
Troponin I 0.017 D Cancelled
Vital Signs and I&O:
Vital Signs
Temp Pulse Resp BP Pulse Ox
97.5 F 62 18 154/70 95
09/19/23 07:14 09/19/23 08:12 09/19/23 08:12 09/19/23 07:59 09/19/23 08:12
Vital Signs
Temp Pulse Resp BP Pulse Ox
97.5 F 62 18 154/70 95
09/19/23 07:14 09/19/23 08:12 09/19/23 08:12 09/19/23 07:59 09/19/23 08:12
Intake & Output
09/17/23 09/18/23 09/19/23 09/20/23
06:59 06:59 06:59 06:59
Intake Total 560 / 560 480 / 480 480 / 480 300 / 300
Output Total 550 / 550 900 / 900 200 / 200
Balance 10 / 10 -420 / -420 480 / 480 100 / 100
Physical Exam
Physical Exam
GEN: No distress, awake, Ox3
HEENT: supple, anicteric, mmm
LUNGS: Mildly decreased BS CTA, no wheezes/rales
CV: Reg, S1/S2, 1/6 syst murmur
ABD: soft, BS+, NT/ND
EXT: +1-2 LE edema, Rt >Lt. Skin changes c/w chronic venous stasis
NEURO: Gross non-focal
SKIN: hyperpigmentation of LE, consistent with chronic venous stasis; wrapped
[2023-09-19] MEDS: HYDROPHOR 1 APPLIC TOPICAL (10:41)
[2023-09-19 11:59] LABS: Glucose - Point of Care 117 mg/dl (70-99)
[2023-09-19 16:29] LABS: Glucose - Point of Care 104 mg/dl (70-99)
[2023-09-19] MEDS: LOVENOX 40 MG SC (18:28)
--- NOTE | 2023-09-19 18:58 | PTCARENOTE ---
Pt OOB to chair, minimal assistance of one and rolling walker to stand and use bedside commode. Pt still short of breath with minimal exertion but recovering within a minute. Oxygen sats 93% on 3L. Telemetry shows sinus rhythm with frequent PVC's,
one run of 6 beats NSVT, potassium 4.4 today.
--- NOTE | 2023-09-19 20:40 | PTCARENOTE ---
Received pt at handoff. AOX3. Assessment noted as documented. Tele- SR w/ freq. PVCs. Pt currently OOB in chair. Pt sating at 95% on 3L NC. Offers no c/o at this time. POC discussed w/ pt. Call nighat w/in reach.
[2023-09-19] MEDS: LIPITOR 20 MG PO (21:45)
[2023-09-19 21:46] LABS: Glucose - Point of Care 110 mg/dl (70-99)
[2023-09-20] VITALS (8 sets, daily range): BP systolic 115–149; BP diastolic 55–89; PULSE 91; BMI 42.3
[2023-09-20 05:02] LABS: Blood Urea Nitrogen 48 mg/dl (7-17); Calcium 7.8 mg/dl (8.4-10.2); Carbon Dioxide 32 mmol/L (22-30); Chloride 101 mmol/L (98-107); Estimated Creatinine Clearance 46 ml/min; Glucose 88 mg/dl (70-99); Potassium 4.3 mmol/L (3.5-5.1); Sodium 141 mmol/L (135-145); eGFR 46.05
[2023-09-20] MEDS: NOVOLOG FLEXPEN-LOW RESISTANCE SC ×3 (08:02→17:08)
[2023-09-20 08:03] LABS: Glucose - Point of Care 86 mg/dl (70-99)
[2023-09-20] MEDS: ADVAIR HFA 115/21 MCG INHALER 2 PUFF INH ×2 (08:03→19:28)
[2023-09-20] MEDS: IMDUR (EXTENDED RELEASE) 30 MG PO (08:24)
[2023-09-20] MEDS: TOPROL XL 12.5 MG PO (08:24)
[2023-09-20] MEDS: ASPIR LOW (ENTERIC COATED) 81 MG PO (08:24)
[2023-09-20] MEDS: APRESOLINE 50 MG PO ×2 (08:24→19:47)
[2023-09-20] MEDS: DESENEX/MITRAZOL/ZEASORB 1 APPLIC TOPICAL ×2 (08:25→19:47)
[2023-09-20] MEDS: LASIX 80 MG IV (08:25)
[2023-09-20] MEDS: HYDROPHOR 1 APPLIC TOPICAL (08:25)
--- NOTE | 2023-09-20 09:19 | PTCARENOTE ---
Received pt from shift supervisor RN; Pt AAOX3 and resting comfortably in bed; assist x1 with walk OOB; NSR with Bigeminy on monitor and VSS: Lungs diminished and Dyspneic on exertion; positive bowel sounds; pt voiding yellow urine; pulses weak
bilaterally; +2 lower extremity edema; sacrum foam, and bilateral lower leg foams C/D/I; Hydrophor applied per order, bilateral mona wraps applied per order; see nursing documentation for further details.
--- NOTE | 2023-09-20 09:57 | W.PN.CARDCBS ---
Today's Communication / Plan
-
Increase toprol XL to 25 mg daily
Continue IV diuresis an additional 24 hours
Strict I/Os, daily weights
Impression / Plan
-
PCP: Cris Avilez PA-C
Transition Of Care Specialist: Dr. Ott
Impression:
Presented 09/16/2023 with progressively SOB, improving
Acute on chronic hypoxic respiratory failure
Acute on chronic heart failure with mildly reduced ejection fraction, proBNP 17,100
CKD 3b
Recent admission for COVID-19 treated with Paxlovid and Decadron 07/27/2021 - 07/31/2023
Recent admission for acute HF 08/28/23 until 09/10/23
Chronic hypoxic respiratory failure on home oxygen 1-2 L via NC
Frequent PVCs and bigeminy
Asthma/COPD
Chronic Lymphedema and chronic venous stasis changes
Hypertension
HLD
DM II
MARIAMA
Peripheral Neuropathy
History of DVT
Morbid Obesity
Medication and dietary non-adherence
Echo 08/22/21:�LVEF 53%, mild LVH, Mild MR, Mild 20/10 PRECIOUS 1.7cm2, mild AI
Echo 03/24/22: Technically limited study and patient was scanned in a wheelchair. No regional wall motion abnormalities are seen. LV ejection fraction is 53% by Phan's biplane method�of discs. Mild left ventricular hypertrophy. Normal diastolic
function. Mild mitral regurgitation is seen. This may be underestimated due to acoustic shadowing. Mild aortic stenosis. Peak/mean gradients across the aortic valve 20/10 mmHg. Using an LVOT diameter�of 2.0 cm the aortic valve by the Continuity
equation is calculated at 1.7 cm2. Mild aortic regurgitation.
Echo 12/18/2022:�EF 40-45%, global hypokinesis, moderate cLVH, stage II diastolic dysfunction, mild MS, mild MR, severely dilated LA, moderate with peak/mean gradients 45/20 mmHg, PRECIOUS 1.2 cm2, mild AR, mild TR, estimated PAP 42 mmHg,
Echo 03/16/2023: EF 45-50%, moderate cLVH, global hypokinesis, mild MR, mild to moderate with peak/mean gradients 21/12 mmHg, mild TR, estimated PAP 30-35 mmHg
Plan:
-Volume status is difficult to assess. Weight is down at least 4 lbs if not more since depending on accuracy of scale since admission with Lasix 80 mg IV daily diuresis. Patient was taking Lasix 80 mg PO daily prior to admission. Dry weight at last
discharge was 254 lbs and patient now weighs 244 lbs on 09/18/23; no change 09/18.; inaccurate/unmeasured I/Os
-Cre last admission was 1.6 to 1.9. Cre remains stable 1.2. Will follow Cre
-Previously managed with Cardizem CD for frequent, asymptomatic PVCs. During one of her recent admissions she was changed to Toprol XL 12.5 mg daily. Will continue for now. Uptitration limited by bradycardia.
-Previously declined SGLT-2 due to risk of infection and she is almost bedbound and incontinent.
-Previously lisinopril caused SOB. Continue hydralazine. BP will allow for addition of isosorbide 30 mg (started 09/18/23)
-On chronic oxygen with baseline flow 2 lpm, still requiring 3 lpm via NC at this time. Wean down as tolerated. She has a h/o COPD.
-Overall prognosis is poor and the risk of recurrent admission is very high.
HPI: Patient came to [facility] with hypoxia and cardiology is consulted for acute HF. Patient was just admitted to 08/28/23 until 09/10/23 with acute HF and generally she declines SNF and VN recommendations, but this time she was a max assist of 2 and so
she and her family were agreeable to rehab at [facility]. patient says that she missed days of her usual inhaler therapy because it was non-formulary and she had to wait for family to bring from home. Then last night her oxygen tubing kept filling
up with water. Patient wears oxygen at 2 L NC continuously, but now requiring 4 L. She says that she was unable to turn back and forth with changing this AM and so she was sent to [facility]. Her pro-BNP was [address]32 which is moderately elevated for her.
Troponin normal. No chest pain. She was given Lasix 80 mg IV x1 in the ER with increased urine output.
Progress Note - Transition Of Care Specialist
Subjective
Date of Service: September 20, 2023
Patient seen and examined. No acute events overnight. Patient resting comfortably. Tele SR PVCs. Improved SOB/HUA. No CP, palpitations.
Objective
Labs:
09/17/23 02:02
09/20/23 04:10
Labs
Hgb 10.0 g/dL (12.0-16.0) L 09/17/23 02:02
Hct 32.0 % (37.0-47.0) L 09/17/23 02:02
Plt Count 255 10^3/uL (130-400) 09/17/23 02:02
PT 19.1 Sec (11.4-14.6) H 09/16/23 09:19
INR 1.59 09/16/23 09:19
Sodium 141 mmol/L (135-145) 09/20/23 04:10
Potassium 4.3 mmol/L (3.5-5.1) 09/20/23 04:10
BUN 48 mg/dl (7-17) H 09/20/23 04:10
Creatinine 1.2 mg/dL (0.6-1.0) H 09/20/23 04:10
Glucose 88 mg/dl (70-99) 09/20/23 04:10
Vital Signs and I&O:
Vital Signs
Temp Pulse Resp BP Pulse Ox
97.9 F 68 18 144/61 95
09/20/23 08:02 09/20/23 08:06 09/20/23 08:06 09/20/23 07:15 09/20/23 09:28
Vital Signs
Temp Pulse Resp BP Pulse Ox
97.9 F 68 18 144/61 95
09/20/23 08:02 09/20/23 08:06 09/20/23 08:06 09/20/23 07:15 09/20/23 09:28
Intake & Output
09/18/23 09/19/23 09/20/23 09/21/23
06:59 06:59 06:59 06:59
Intake Total 480 / 480 480 / 480 630 / 630
Output Total 900 / 900 1350 / 1350 200 / 200
Balance -420 / -420 480 / 480 -720 / -720 -200 / -200
Physical Exam
Physical Exam
GEN: No distress, awake, Ox3
HEENT: supple, anicteric, mmm
LUNGS: Mildly decreased BS CTA, no wheezes/rales
CV: Reg, S1/S2, 1/6 syst murmur
ABD: soft, BS+, NT/ND
EXT: +1-2 LE edema, Rt >Lt. Skin changes c/w chronic venous stasis
NEURO: Gross non-focal
SKIN: hyperpigmentation of LE, consistent with chronic venous stasis; wrappe
[2023-09-20 12:16] LABS: Glucose - Point of Care 104 mg/dl (70-99)
--- NOTE | 2023-09-20 12:17 | PTCARENOTE ---
Assessment unchanged; NSR BBB PVCs Bigeminy on monitor and VSS; family at bedside.
--- NOTE | 2023-09-20 15:11 | W.PN.HOSP.TC ---
Today's Communication/Plan
-
recheck labs in AM
transition to oral Lasix, as per cardio
Assessment / Plan
Assessment / Plan
CXR: Cardiomegaly, unchanged. Increased pulmonary vascular markings which could represent mild CHF or acute pulmonary edema.
wt 115.6-->111.3-->108.2kg
Acute on chronic hypoxic respiratory failure due to acute on chronic HFrEF:
-currently on 3L NC O2 (baseline 2L NC O2)
-CXR above
-proBNP 17,100
-as per cardio, cont IV Lasix for 24 hrs further, daily wts, I/Os, FR
-cont Hydralazine/BB/Imdur
-cardiology following
BUN/Creat 45/1.2-->44/1.3-->46/1.2-->48/1.2-->48/1.2
Echo 03/21: Left ventricle is mildly dilated. Moderate concentric left ventricular
�hypertrophy (LV wall thickness is 1.5 cm, not 1.2 cm). Mildly reduced left
�ventricular systolic function. Left ventricular ejection fraction is 45-50%.
�Global hypokinesis.
�Mildly enlarged LA, normal sized RA.
�Mild mitral regurgitation.
�Mild to moderate aortic stenosis with peak and mean gradients of 21 and 12 mm
�Hg and Compared to prior echo from 12/18/22,peak and mean aortic valve gradients
�previously 45 and 30 mm Hg and� LA size was previously severely enlarged and RA
�was moderately enlarged.
Other problems:
CKD3b
Essential hypertension: cont Hydralazine/BB/Imdur
DM2: SSI/accuchecks
Hyperlipidemia: cont statin
Asthma/COPD: Cont Advair
Obstructive sleep apnea
h/o right lower extremity DVT
Morbid obesity due to excess calories
FULL/Lovenox
Anticipated Discharge: 24 - 48 hours
Subjective/Interval History
-
Date of Service: September 20, 2023
In good spirits
Objective Data
-
Labs:
Laboratory Results
09/20/23
04:10
Sodium 141
Potassium 4.3
Chloride 101
Carbon Dioxide 32 H
BUN 48 H
Creatinine 1.2 H
Glucose 88
Calcium 7.8 L
Vital Signs:
Vital Signs
Temp Pulse Resp BP Pulse Ox
98.0 F 98 20 144/80 94
09/20/23 12:17 09/20/23 12:15 09/20/23 12:17 09/20/23 12:15 09/20/23 12:17
I&O
09/19/23 09/20/23 09/21/23
06:59 06:59 06:59
Intake Total 480 / 480 630 / 630 240 / 240
Output Total 1350 / 1350 500 / 500
Balance 480 / 480 -720 / -720 -260 / -260
Review of Systems
-
History Source: Patient and Coordinated Provider
Constitutional: Denies Fever
EENT: Reports No Symptoms Reported
Respiratory: Reports No Symptoms (no sob at rest)
Cardiac: Denies Chest Pain or Palpitations
Abdomen/GI: Reports No Symptoms
Neuro: Reports No Symptoms
Physical Exam
-
General: Well Developed, Well Nourished and No Apparent Distress
HEENT: Normocephalic, Atraumatic and Moist Mucous Membranes
Cardiac: Regular Rhythm, S1/S2 and Murmur (1/6sem)
GI: Soft, Nontender and Nondistended
Musculoskeletal: No Clubbing and No Cyanosis; Negative No Edema (1+ bilateral chronic edema with severe stasis dermatitis changes)
Skin: Rash (LE stasis dermatitis)
[2023-09-20 17:07] LABS: Glucose - Point of Care 102 mg/dl (70-99)
[2023-09-20] MEDS: LOVENOX 40 MG SC (17:08)
[2023-09-20] MEDS: LIPITOR 20 MG PO (22:04)
[2023-09-20 22:10] LABS: Glucose - Point of Care 127 mg/dl (70-99)
--- NOTE | 2023-09-20 22:44 | PTCARENOTE ---
Received pt at handoff. AOx3. Assessment noted as documented. Pt ambulatory in room w/ rolling walker and assist x1. Sating at 95% on 3L O2 NC. Pt states SOB has improved since admission but still present. CHF education provided. Offers no other
c/o at this time. Perineal care provided. KAROLINA wrap bandages removed at HS. Currently in bed; call nighat w/in reach.
[2023-09-21 04:26] VITALS: BP 139/55
[2023-09-21 05:32] LABS: Blood Urea Nitrogen 49 mg/dl (7-17); Calcium 7.9 mg/dl (8.4-10.2); Carbon Dioxide 31 mmol/L (22-30); Chloride 103 mmol/L (98-107); Estimated Creatinine Clearance 41 ml/min; Glucose 87 mg/dl (70-99); Potassium 4.2 mmol/L (3.5-5.1); Sodium 137 mmol/L (135-145); eGFR 41.83
[2023-09-21 06:00] VITALS: BMI 43.5
[2023-09-21] MEDS: ADVAIR HFA 115/21 MCG INHALER 2 PUFF INH (07:38)
[2023-09-21 08:00] VITALS: BP 117/72
[2023-09-21 08:03] LABS: Glucose - Point of Care 97 mg/dl (70-99)
[2023-09-21] MEDS: NOVOLOG FLEXPEN-LOW RESISTANCE SC ×2 (08:05→12:17)
[2023-09-21] MEDS: IMDUR (EXTENDED RELEASE) 30 MG PO (08:36)
[2023-09-21] MEDS: ASPIR LOW (ENTERIC COATED) 81 MG PO (08:36)
[2023-09-21] MEDS: TOPROL XL 25 MG PO (08:36)
[2023-09-21] MEDS: APRESOLINE 50 MG PO (08:36)
[2023-09-21] MEDS: DESENEX/MITRAZOL/ZEASORB 1 APPLIC TOPICAL (08:36)
[2023-09-21] MEDS: HYDROPHOR 1 APPLIC TOPICAL (08:37)
--- NOTE | 2023-09-21 09:17 | W.PN.CARDCBS ---
Today's Communication / Plan
-
Wt is down from admit and last discharge. Transition to lasix 120 mg PO daily. She was taking Lasix 80 mg daily as outpt but was readmitted in less than one week.
Cr stable. BUN rising slowly.
Previously lisinopril caused SOB. Continue hydralazine and Imdur for afterload reduction, Imdur started 09/18/23
Cont Toprol for PVCs, limited titration due to bradycardia. Had been on Cardizem in the past.
Previously declined SGLT-2 due to risk of infection as she is almost bedbound and incontinent.
Cont home on O2 on chronically for hx COPD, baseline is 2L.
Overall prognosis is poor and the risk of recurrent admission remains very high.
Discussed with nursing.
Will arrange follow up.
Please recall if needed.
Impression / Plan
-
PCP: Cris Avilez PA-C
Livestock Inspector: Dr. Ott
Impression:
Presented 09/16/2023 with progressively SOB, improving
Acute on chronic hypoxic respiratory failure
Acute on chronic heart failure with mildly reduced ejection fraction, proBNP 17,100
CKD 3b
Recent admission for COVID-19 treated with Paxlovid and Decadron 07/27/2021 - 07/31/2023
Recent admission for acute HF 08/28/23 until 09/10/23
Chronic hypoxic respiratory failure on home oxygen 1-2 L via NC
Frequent PVCs and bigeminy
Asthma/COPD
Chronic Lymphedema and chronic venous stasis changes
Hypertension
HLD
DM II
MARIAMA
Peripheral Neuropathy
History of DVT
Morbid Obesity
Medication and dietary non-adherence
Echo 08/22/21:�LVEF 53%, mild LVH, Mild MR, Mild 20 PRECIOUS 1.7cm2, mild AI
Echo 03/24/22: Technically limited study and patient was scanned in a wheelchair. No regional wall motion abnormalities are seen. LV ejection fraction is 53% by Phan's biplane method�of discs. Mild left ventricular hypertrophy. Normal diastolic
function. Mild mitral regurgitation is seen. This may be underestimated due to acoustic shadowing. Mild aortic stenosis. Peak/mean gradients across the aortic valve 20/10 mmHg. Using an LVOT diameter�of 2.0 cm the aortic valve by the Continuity
equation is calculated at 1.7 cm2. Mild aortic regurgitation.
Echo 12/18/2022:�EF 40-45%, global hypokinesis, moderate cLVH, stage II diastolic dysfunction, mild MS, mild MR, severely dilated LA, moderate with peak/mean gradients 45/20 mmHg, PRECIOUS 1.2 cm2, mild AR, mild TR, estimated PAP 42 mmHg,
Echo 03/16/2023: EF 45-50%, moderate cLVH, global hypokinesis, mild MR, mild to moderate with peak/mean gradients 21/12 mmHg, mild TR, estimated PAP 30-35 mmHg
Plan:
Wt is down from admit and last discharge. Transition to lasix 120 mg PO daily. She was taking Lasix 80 mg daily as outpt but was readmitted in less than one week.
Cr stable. BUN rising slowly.
Previously lisinopril caused SOB. Continue hydralazine and Imdur for afterload reduction, Imdur started 09/18/23
Cont Toprol for PVCs, limited titration due to bradycardia. Had been on Cardizem in the past.
Previously declined SGLT-2 due to risk of infection as she is almost bedbound and incontinent.
Cont home on O2 on chronically for hx COPD, baseline is 2L.
Overall prognosis is poor and the risk of recurrent admission remains very high.
Discussed with nursing.
Will arrange follow up.
Please recall if needed.
HPI: Patient came to [facility] with hypoxia and cardiology is consulted for acute HF. Patient was just admitted to 08/28/23 until 09/10/23 with acute HF and generally she declines SNF and VN recommendations, but this time she was a max assist of 2 and so
she and her family were agreeable to rehab at [facility]. patient says that she missed days of her usual inhaler therapy because it was non-formulary and she had to wait for family to bring from home. Then last night her oxygen tubing kept filling
up with water. Patient wears oxygen at 2 L NC continuously, but now requiring 4 L. She says that she was unable to turn back and forth with changing this AM and so she was sent to [facility]. [place] 388[address] which is moderately elevated for her.
Troponin normal. No chest pain. She was given Lasix 80 mg IV x1 in the ER with increased urine output.
Progress Note - Livestock Inspector
Subjective
Date of Service: September 21, 2023
Pt seen and examined. No complaints. No chest pain or shortness of breath.
Objective
Labs:
09/17/23 02:02
09/21/23 04:32
Labs
Hgb 10.0 g/dL (12.0-16.0) L 09/17/23 02:02
Hct 32.0 % (37.0-47.0) L 09/17/23 02:02
Plt Count 255 10^3/uL (130-400) 09/17/23 02:02
PT 19.1 Sec (11.4-14.6) H 09/16/23 09:19
INR 1.59 09/16/23 09:19
Sodium 137 mmol/L (135-145) 09/21/23 04:32
Potassium 4.2 mmol/L (3.5-5.1) 09/21/23 04:32
BUN 49 mg/dl (7-17) H 09/21/23 04:32
Creatinine 1.3 mg/dL (0.6-1.0) H 09/21/23 04:32
Glucose 87 mg/dl (70-99) 09/21/23 04:32
Vital Signs and I&O:
Vital Signs
Temp Pulse Resp BP Pulse Ox
97.6 F 97 20 117/72 95
09/21/23 07:57 09/21/23 08:36 09/21/23 07:57 09/21/23 08:36 09/21/23 08:00
Vital Signs
Temp Pulse Resp BP Pulse Ox
97.6 F 97 20 117/72 95
09/21/23 07:57 09/21/23 08:36 09/21/23 07:57 09/21/23 08:36 09/21/23 08:00
Intake & Output
09/19/23 09/20/23 09/21/23 09/22/23
06:59 06:59 06:59 06:59
Intake Total 480 / 480 630 / 630 340 / 340
Output Total 1350 / 1350 900 / 900
Balance 480 / 480 -720 / -720 -560 / -560
Physical Exam
Physical Exam
General: No acute distress, AAOX3
Neck: Negative JVD
Heart: Regular, Negative S3 positive S1/S2, Negative S4, No murmur
Lungs: CTA b/l, negative wheezes/rales/rhonchi
Abd: Positive BS, NT/ND, neg rebound/rigidity/guarding
Ext: Negative cyanosis/clubbing/edema.
Skin: venous stasis skin changes.
Neuro: nonfocal
[2023-09-21] MEDS: LASIX IV (10:01)
[2023-09-21] MEDS: LASIX 120 MG PO (10:04)
[2023-09-21 10:05] VITALS: BP 138/65
--- NOTE | 2023-09-21 11:33 | W.PN.HOSP.TC ---
Today's Communication/Plan
-
Monitor vital signs see plan
Lasix now p.o.
Discharge today
Time of discharge 38 minutes
Assessment / Plan
Assessment / Plan
CXR: Cardiomegaly, unchanged. Increased pulmonary vascular markings which could represent mild CHF or acute pulmonary edema.
wt 115.6-->111.3-->108.2kg
Acute on chronic hypoxic respiratory failure due to acute on chronic HFrEF:
-currently on 3L NC O2 (baseline 2L NC O2)
-CXR above
-proBNP 17,100
-as per cardio, transition Lasix to 120 mg PO
-cont Hydralazine/BB/Imdur
-cardiology following
Monitor renal function
Echo 03/21: Left ventricle is mildly dilated. Moderate concentric left ventricular
�hypertrophy (LV wall thickness is 1.5 cm, not 1.2 cm). Mildly reduced left
�ventricular systolic function. Left ventricular ejection fraction is 45-50%.
�Global hypokinesis.
�Mildly enlarged LA, normal sized RA.
�Mild mitral regurgitation.
�Mild to moderate aortic stenosis with peak and mean gradients of 21 and 12 mm
�Hg and Compared to prior echo from 12/18/22,peak and mean aortic valve gradients
�previously 45 and 30 mm Hg and� LA size was previously severely enlarged and RA
�was moderately enlarged.
Other problems:
CKD3b
Essential hypertension: cont Hydralazine/BB/Imdur
DM2: SSI/accuchecks
Hyperlipidemia: cont statin
Asthma/COPD: Cont Advair
Obstructive sleep apnea
h/o right lower extremity DVT
Morbid obesity due to excess calories
FULL/Lovenox
General: Well Developed, Well Nourished and No Apparent Distress
HEENT: Normocephalic, Atraumatic and Moist Mucous Membranes
Cardiac: Regular Rhythm, S1/S2 and Murmur (6sem)
GI: Soft, Nontender and Nondistended
Musculoskeletal: No Clubbing and No Cyanosis; Negative No Edema (1+ bilateral chronic edema with severe stasis dermatitis changes)
Skin: Rash (LE stasis dermatitis)
Anticipated Discharge: Today
Subjective/Interval History
-
Date of Service: September 21, 2023
Denies chest pain
Objective Data
-
Labs:
Laboratory Results
09/21/23
04:32
Sodium 137
Potassium 4.2
Chloride 103
Carbon Dioxide 31 H
BUN 49 H
Creatinine 1.3 H
Glucose 87
Calcium 7.9 L
Vital Signs:
Vital Signs
Temp Pulse Resp BP Pulse Ox
97.6 F 95 20 138/65 96
09/21/23 07:57 09/21/23 10:04 09/21/23 07:57 09/21/23 10:04 09/21/23 09:38
I&O
09/20/23 09/21/23 09/22/23
06:59 06:59 06:59
Intake Total 630 / 630 340 / 340
Output Total 1350 / 1350 900 / 900
Balance -720 / -720 -560 / -560
[2023-09-21 11:37] VITALS: BP 128/62
--- NOTE | 2023-09-21 11:40 | W.DCSUMMARY ---
Discharge Summary
Discharge Data
Date of Admission: 09/16/23
Date of Discharge: 09/21/23
-
Pending Results: No
Hospital Course
77-year-old female with past medical history of CKD 3B, essential hypertension, diabetes mellitus, hyperlipidemia, asthma/COPD, obstructive sleep apnea, DVT, morbid obesity, CHF came to the hospital with shortness of breath known to have acute on
chronic hypoxic respiratory failure secondary to CHF exacerbation. Echocardiogram was done which showed reduced ejection fraction of 45 to 50%. Patient was initially treated with IV Lasix which was transitioned to oral Lasix upon discharge.
Patient outpatient Lasix dose was increased from 80 mg p.o. daily to 120 mg p.o. daily. Once patient symptoms continues to improve, she was then discharged with instructions to follow-up with all her physicians outpatient.
Discharge Plan
-
Patient Disposition: Prison/SNF
Discharge Diagnosis/Procedures: Acute on chronic hypoxic respiratory failure
Acute on chronic congestive heart failure with reduced ejection fraction
Chronic kidney disease
Diet: Diabetic, Carb Controlled, No added salt and Restrict fluids to 48 oz
Activity: As tolerated
Driving Restrictions: Not until seen by your Dr
Bathing Restrictions: None
Blood Work: BMP next week with primary care provider
Activity Restrictions/Additional Instructions:
Wound Care Instructions
R proximal lateral wound: clean with soap and water, dry dressing daily.
L distal lateral wound: clean with soap and water, dry dressing daily
Moisturize legs and feet daily with Aquaphor
mona wraps daily forefoot to below knee daily, can remove at bedtime and re-apply daily
Resume own compression wraps when home daily, leg elevation when sitting
Buttocks: clean with saline, silicone foam change q 3 days and PRN if loose or soiled
Desenex to fungal appearing skin under breasts, abdominal and groin skin folds
Barrier ointment to scabbed areas on left groin.
air mattress with turning schedule
offloading cushion when sitting
Follow up at wound care center call for an appointment.
Instructions: *[facility] Heart Failure Instructions
Referrals:
Maverick Ott MD [Active] -
Salinas Colon MD [Family Provider] - in less than 1 week
Prescriptions:
New
furosemide 40 mg Tablet
120 mg PO DAILY Qty: 0 0RF
isosorbide mononitrate 30 mg Tablet Extended Release 24 Hr
30 mg PO DAILY Qty: 0 0RF
metoprolol succinate 25 mg Tablet Extended Release 24 Hr
25 mg PO DAILY Qty: 0 0RF
Continued
atorvastatin 20 MG tablet
20 mg PO HS
Hold Instructions: Resume on 08/04/23.
aspirin 81 MG tablet,delayed release (DR/EC)
81 mg PO DAILY
acetaminophen [Tylenol] 325 mg Tablet
650 mg PO Q6HPRN PRN (Reason: mild pain/fever)
potassium chloride [Klor-Con M20] 20 mEq tablet,ER particles/crystals
20 meq PO RYAN
hydralazine 50 mg tablet
50 mg PO BID Qty: 60 0RF
miconazole nitrate [Miconazorb AF] 2 % powder
1 applic topical BID
fluticasone propion-salmeterol 250-50 mcg/dose Blister With Device
1 inh INHALATION R BID
Aquaphor Ointment
1 applic TOPICAL DAILY
magnesium hydroxide [Milk of Magnesia] 400 mg/5 mL Suspension
30 ml PO DAILY PRN (Reason: if no BM x 2 days)
repaglinide 0.5 mg Tablet
0.5 mg PO [id number] PRN (Reason: for glucose>150)
bisacodyl [Dulcolax (bisacodyl)] 10 mg Suppository
10 mg WI DAILY PRN (Reason: if no BM in 8hr after MOM)
Fleet Enema 19-7 gram/118 mL Enema
118 ml WI DAILYPRN PRN (Reason: if no BM 8hr after supp)
levalbuterol tartrate 45 mcg/actuation Hfa Aerosol Inhaler
2 inh INHALATION R DAILYPRN PRN (Reason: sob)
Discontinued
furosemide 80 mg tablet
80 mg PO DAILY
metoprolol succinate 25 mg Tablet Extended Release 24 Hr
12.5 mg PO DAILY 30 Days Qty: 15 0RF
Discharge Orders:
Discharge Patient (As Directed); Ordered 09/21/23
Ordered By: Ricardo Stuart
Care Plan Goals
Care Plan Goals:
Problem: Readiness for enhanced knowledge related to diagnosis and treatment plan
Goal: Understand your diagnosis and treatment plan needs, including medications if applicable.
Instructions: Know your diagnosis, underlying causes and treatment plan options, including medications if applicable. Consult with your health care team to learn about your diagnosis and treatment plan, including medications if applicable.
Discharge Date and Time
Discharge Date/Time: 09/21/23 16:52
--- NOTE | 2023-09-21 12:12 | CM ---
pt sher'ed, called [facility], she has a bed for today, pt agreeable to going back there for more skilled needs.
[2023-09-21 12:15] LABS: Glucose - Point of Care 110 mg/dl (70-99)
[2023-09-21 15:32] LABS: COVID-19 Antigen Negative (Negative)
== END 2023-09-21 16:52 | DRG 291 ==
LOC: IVU 13:18
PROVIDERS: Internal Medicine; ADMITTING PHYSICIAN Internal Medicine; CONSULT PHYSICIAN Internal Medicine Cardiovascular Disease; EMERGENCY PHYSICIAN Emergency Medicine; FAMILY PHYSICIAN Family Medicine
DX: I13.0 Hypertensive heart and chronic kidney disease with heart failure and stage 1 through stage 4 chronic kidney disease, or unspecified chronic kidney disease (principal); I50.23 Acute on chronic systolic (congestive) heart failure; J96.21 Acute and chronic respiratory failure with hypoxia; N17.9 Acute kidney failure, unspecified; Z68.41 Body mass index [BMI] 40.0-44.9, adult; E11.42 Type 2 diabetes mellitus with diabetic polyneuropathy; N18.32 Chronic kidney disease, stage 3b; J44.89 Other specified chronic obstructive pulmonary disease; R33.9 Retention of urine, unspecified; L23.7 Allergic contact dermatitis due to plants, except food; E11.22 Type 2 diabetes mellitus with diabetic chronic kidney disease; G47.33 Obstructive sleep apnea (adult) (pediatric); E66.01 Morbid (severe) obesity due to excess calories; I87.8 Other specified disorders of veins; I49.3 Ventricular premature depolarization; I89.0 Lymphedema, not elsewhere classified; E78.00 Pure hypercholesterolemia, unspecified; Z99.81 Dependence on supplemental oxygen; Z11.52 Encounter for screening for COVID-19; Z88.8 Allergy status to other drugs, medicaments and biological substances; Z88.6 Allergy status to analgesic agent; Z88.1 Allergy status to other antibiotic agents; Z91.040 Latex allergy status; Z79.82 Long term (current) use of aspirin; Z79.51 Long term (current) use of inhaled steroids; Z86.718 Personal history of other venous thrombosis and embolism; Z91.148 Patient's other noncompliance with medication regimen for other reason; Z91.119 Patient's noncompliance with dietary regimen due to unspecified reason
CPT/HCPCS: 71045; 80048; 80053; 82962; 83880; 84484; 85025; 85610; 87070; 87502; 87811; 93005; 94640; 96374; 97110; 97162; 97167; 97530; 99285

== ENCOUNTER 2023-10-01 03:40 | Inpatient (IN) | payer MEDICARE, OTHER, SELFPAY ==
[2023-10-01] VITALS (19 sets, daily range): BP systolic 98–149; BP diastolic 37–92; PULSE 72–73; O2SAT 91–92; BMI 46.1
[2023-10-01 01:45] LABS: % Basophils 0.6 % (0-2); % Eosinophils 15.7 % (0-6); % Immature Granulocytes 0.2 % (0-0.5); % Lymphocytes 11.2 % (20.5-51.1); % Monocytes 8.7 % (1.7-9.3); % Neutrophils 63.6 % (42.2-75.2); Absolute Basophils 0.1 10^3/uL (0-0.2); Absolute Eosinophils 1.3 10^3/uL (0-0.7); Absolute Lymphocytes 0.9 10^3/uL (1.2-3.4); Absolute Monocytes 0.7 10^3/uL (0.1-0.6); Absolute Neutrophils 5.2 10^3/uL (1.4-6.5); Hematocrit 30.9 % (37.0-47.0); Hemoglobin 10.2 g/dL (12.0-16.0); Mean Corpuscular Hgb 27.7 pg (27.0-31.0); Mean Platelet Volume 9.8 fL (7.4-10.4); Nucleated Red Blood Cells % 0 %; Platelet Count 268 10^3/uL (130-400); Red Blood Cell Count 3.68 10^6/uL (4.20-5.40); Red Cell Dist. Width 18.3 % (11.5-14.5); White Blood Cell Count 8.1 10^3/uL (4.8-10.8)
--- NOTE | 2023-10-01 01:45 | ED.GENMED ---
History of Present Illness
General
Chief Complaint: Breathing Problem
Source: patient
Exam Limitations: none
Time Seen by Provider: 10/01/23 01:12
Travel History
Have you had any contact with someone who has COVID-19?: No
Do you have any symptoms of coronavirus? Fever > 100 degrees, chills, cough, shortness of breath, sore throat, loss of taste or smell, muscle aches, or headache?: No
History of Present Illness
History of Present Illness:
This is a 77 year old female that comes in by ambulance with c/o SOB. States that around 10pm she became SOB. States that she takes Lasix and she has not been urinating as much. States that has gained 5-6 pounds over night. States that she feels
SOB with a cough. Denies any fever, chills, chest pain, abd pain, nausea, vomiting, diarrhea, headache, dizziness, urinary burning.
Past History
Past History
ED Past Medical History: Arrthythmia (Frequent PVCs), Asthma, CHF, COPD, HTN, Hypercholesterolemia, NIDDM, Other (Chronic lymphedema, Migraines, PNA, DVT, Anemia) and Other (Right lower extremity DVT October 2019)
ED Past Surgical History: Gynecological (Several D&Cs, miscarriage), Tonsilectomy and Other (Cancerous mass removed from right leg 20 years ago. Breast mass removed noncancerous. cataracts, )
Social History
Tobacco: Non-smoker
Alcohol: None
Personal:
Living: assisted living (She lives with her family but she is in rehab at this time at [facility])
Employment: Retired
Family History
Family History: Other (Noncontributory)
Review of Systems
Review of Systems
All Other Systems: ROS reviewed and negative except as documented in HPI and ROS
Constitutional: Reports no symptoms; Denies fever or chills
EENT: Reports no symptoms
Respiratory: Reports cough and trouble breathing
Cardiac: Denies chest pain
ABD/GI: Reports no symptoms; Denies abdominal pain, nausea, vomiting or diarrhea
: Reports other (Decreased urine output); Denies dysuria, frequency or urgency
Musculoskeletal: Reports no symptoms
Skin: Reports no symptoms
Neurological: Reports no symptoms; Denies dizzy or headache
Psychiatric: Reports no symptoms
Phy Exam
General Physical Exam
General Presentation: mild distress
General age: appears stated age
General Skin: warm and dry
General Habitus: debilitated and elderly
General Mental: alert
General Hydration: appears well hydrated
ENT Exam
ENT Exam: TM's normal, pharynx normal and neck supple
Eye Exam
Eye Exam: EOMI
Cardiovascular Exam
Cardiovascular Exam: regular rate/rhythm, normal peripheral pulses and other (PVC noted, Murmur)
Pulmonary Exam
Pulmonary Exam: no respiratory distress, chest non tender, no rhonchi, no cough and other (Fine rales left base, Occasional faint exp wheeze noted)
Gastrointestinal Exam
Gastrointestinal Exam: normal bowel sounds, non tender, soft, no organomegaly, no pulsatile mass, non distended and other (Obese)
Musculoskeletal Exam
Musculoskeletal Exam: edema ( Chronic Lymphedema R>L (patient states that this is her normal) )
Skin Exam
Skin Exam: normal color, warm/dry, no rash, no petechia and other (Chronic Donnellson stasis dermatitis, Small open dime size wound on the right lateral lower leg)
Psychiatric Exam
Psychiatric Exam: normal mood/affect
Scores
Heart Failure Risk
Heart Failure Risk Score: Yes
History of Stroke or TIA: No
History of intubation for respiratory distress: No
Heart rate on ED arrival >/= 110: No
SaO2 <90% on arrival on room air: Yes
HR >/=110 during 3min walk test (or too ill to perform test): Yes
ECG has acute ischemic changes: No
Urea >/=12mmol/L (BUN 33.6mg/dL): Yes
Serum CO2>/=35mmol/L: No
Troponin I or T elevated to TN Level (0.4mg/dL): No
NT-proBNP >/=5,000ng/L (5,000pg/ml): Yes
HF Risk Score: 5
Admission Status: VERY HIGH RISK 39.8% Consider admission to hospital
Course
Orders/Labs/Results
Orders:
Orders
10/01/23 01:28
CR Chest - 2 Views Urgent
Comment:
Reason For Exam: SOB
10/01/23 01:33
COVID-19 Antigen Urgent
Source: Nasal Swab
Complete Blood Count/With Diff Urgent
Comprehensive Metabolic Panel Urgent
NT-proBNP Urgent
Troponin I Urgent
10/01/23 01:56
Electrocardiogram (*1) Urgent
Reason for Study: Shortness of Breath
EKG- Treatment ONCE
Abnormal Lab Results
10/01/23
01:33
RBC 3.68 L 10^6/uL
(4.20-5.40)
Hgb 10.2 L g/dL
(12.0-16.0)
Hct 30.9 L %
(37.0-47.0)
RDW 18.3 H %
(11.5-14.5)
Absolute Lymphs (auto) 0.9 L 10^3/uL
(1.2-3.4)
Absolute Monos (auto) 0.7 H 10^3/uL
(0.1-0.6)
Absolute Eos (auto) 1.3 H 10^3/uL
(0-0.7)
Lymphocytes % 11.2 L %
(20.5-51.1)
Eosinophils % 15.7 H %
(0-6)
BUN 44 H mg/dl
(7-17)
Creatinine 1.2 H mg/dL
(0.6-1.0)
Calcium 7.5 L mg/dl
(8.4-10.2)
Total Protein 6.1 L g/dl
(6.3-8.2)
Albumin 2.8 L g/dl
(3.5-5.0)
10/01/23 01:33
10/01/23 01:33
H/H slightly low. Chronic renal insufficiency. hypocalcemia. total protein slightly low. Albumin low. COVID negative, Troponin 0.021, Pro-BNP 14,700
Vital Signs
Initial and Last Documented VS:
Initial Vital Signs
Temp Pulse Resp BP Pulse Ox
97.8 F 69 27 98/37 94
10/01/23 01:04 10/01/23 01:04 10/01/23 01:04 10/01/23 01:04 10/01/23 01:04
Last Documented Vital Signs
Temp Pulse Resp BP Pulse Ox
97.8 F 71 25 98/37 94
10/01/23 01:04 10/01/23 01:15 10/01/23 01:15 10/01/23 01:14 10/01/23 01:04
MDM/Problems Addressed
Differential Diagnosis Includes:
CHF, PNA, Asthma exacerbation,
MDM/Problems Addressed:
This is a 77 year old female that comes in by ambulance with c/o SOB. States that this started about 10 pm and she felt like she couldn't breath. States that she takes Lasix and her urine output has been down. States that she also gained 5-6 pounds
over night.
Will check labs, Chest x-ray.
Back into see patient. Explained that her x-ray shows increased vascular congestion and small pleural effusions. Will admit patient. Hospitalist notified.
Chronic conditions affecting care:
CHF
Chronic conditions affecting care: COPD and Asthma
Acute Exacerbation and/or Progression of Chronic Illness:
CHF
Acute Exacerbation and/or Progression of Chronic Illness: COPD, Asthma and Other
*Radiology
Radiology exam reviewed: preliminary read by ED provider (Chest- Increased vascular congestion with small pleural effusion. )
*Pulse Oximetry
Patient hypoxic: no
Comment: Patient on 2 liters
*EKG
Interpreted by ED Provider?: Yes
Heart Rate: 70
Rate: normal
Rhythm: sinus and PVC's
Bartley: left axis deviation
Interval: normal interval
QRS Pattern: left bundle branch block
Ischemia: no ischemia
*Inside Sales Agent Interpretation
Rate: normal
Heart Rate: 80
Rhythm: sinus and PVC's
*Critical Care Note
Total Time (30-74mins, 75-104mins- exclusive of procedures): Not Applicable
ED Attending Note
-
Portions of this chart may have been created with voice recognition software.� Occasional wrong word or��sound alike� substitutions may have occurred due to the inherent limitations of voice recognition software.
Discharge Plan
Departure
Patient Disposition: Admit
Date of Disposition: 10/01/23
Time of Disposition: 02:34
Admit to: Telemetry
Presentation/result/management discussed w/ accepting MD/DO: Hospitalist
Patient with high blood pressure during this ER visit?: No
Condition: Good
Covid-19: Negative COVID-19
Discharge Problem:
CHF (congestive heart failure), SOB (shortness of breath)
Prescriptions:
No Action
atorvastatin 20 MG tablet
20 mg PO HS
Hold Instructions: Resume on 08/04/23.
aspirin 81 MG tablet,delayed release (DR/EC)
81 mg PO DAILY
acetaminophen [Tylenol] 325 mg Tablet
650 mg PO Q6HPRN PRN (Reason: mild pain/fever)
potassium chloride [Klor-Con M20] 20 mEq tablet,ER particles/crystals
20 meq PO RYAN
hydralazine 50 mg tablet
50 mg PO BID Qty: 60 0RF
miconazole nitrate [Miconazorb AF] 2 % powder
1 applic topical BID
fluticasone propion-salmeterol 250-50 mcg/dose Blister With Device
1 inh INHALATION R BID
Aquaphor Ointment
1 applic TOPICAL DAILY
magnesium hydroxide [Milk of Magnesia] 400 mg/5 mL Suspension
30 ml PO DAILY PRN (Reason: if no BM x 2 days)
repaglinide 0.5 mg Tablet
0.5 mg PO [id number] PRN (Reason: for glucose>150)
bisacodyl [Dulcolax (bisacodyl)] 10 mg Suppository
10 mg DC DAILY PRN (Reason: if no BM in 8hr after MOM)
Fleet Enema 19-7 gram/118 mL Enema
118 ml DC DAILYPRN PRN (Reason: if no BM 8hr after supp)
levalbuterol tartrate 45 mcg/actuation Hfa Aerosol Inhaler
2 inh INHALATION R DAILYPRN PRN (Reason: sob)
furosemide 40 mg Tablet
120 mg PO DAILY Qty: 0 0RF
isosorbide mononitrate 30 mg Tablet Extended Release 24 Hr
30 mg PO DAILY Qty: 0 0RF
metoprolol succinate 25 mg Tablet Extended Release 24 Hr
25 mg PO DAILY Qty: 0 0RF
Referrals:
Salinas Colon MD [Family Provider] -
Interventions
Interventions:
*Risk Screen - Suicide Last Done: 10/01/23 01:04
*General Assessment Last Done: 10/01/23 01:04
*Neglect/Abuse Screening Last Done: 10/01/23 01:04
ED- Fall Risk Assessment Last Done: 10/01/23 01:04
*ED COVID-19 Vaccine History Last Done: 10/01/23 01:04
ED- Cardiac Assessment Last Done: 10/01/23 01:04
ED- Pulmonary Assessment Last Done: 10/01/23 01:04
Discharge Date and Time
Print Language: MALAY
[2023-10-01 01:56] LABS: ALT (SGPT) 14 U/L (0-35); AST (SGOT) 22 U/L (14-36); Albumin 2.8 g/dl (3.5-5.0); Alkaline Phosphatase 90 U/L (38-126); Blood Urea Nitrogen 44 mg/dl (7-17); Calcium 7.5 mg/dl (8.4-10.2); Carbon Dioxide 26 mmol/L (22-30); Chloride 107 mmol/L (98-107); Estimated Creatinine Clearance 47 ml/min; Glucose 94 mg/dl (70-99); Potassium 3.6 mmol/L (3.5-5.1); Sodium 141 mmol/L (135-145); Total Bilirubin 0.8 mg/dl (0.2-1.3); Total Protein 6.1 g/dl (6.3-8.2); eGFR 46.05
[2023-10-01 02:03] LABS: COVID-19 Antigen Negative (Negative)
[2023-10-01 02:07] LABS: Troponin I 0.021 ng/ml
[2023-10-01 02:21] LABS: NT-proBNP 14700 pg/ml
[2023-10-01] MEDS: LASIX 40 MG IV (02:37)
--- NOTE | 2023-10-01 02:39 | HPS.HSE ---
Family Physician
-
Family Physician: Salinas Colon MD
Chief Complaint
-
shortness of breath and weight gain
History of Present Illness
Ms. 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
recent admissions for heart failure 08/28/23-09/10/23 and 09/16/23-09/21/23 (outpatient lasix increased from 80 to 120mg daily) presents to the ER with weight gain and shortness of breath.
Patient has been at [facility] home since last admission. She states she was doing well and improving her mobility with a walker. This morning she started to feel more short of breath and noticed she had gained weight. No chest pain.
No fevers/chills. No nausea/vomiting/diarrhea. No abdominal pain. She has chronic lymphedema and swelling/venous stasis discoloration LE.
Medical History
Past Medical History
Past Medical History: Reports Asthma, COPD, HTN, Hypercholesterolemia, NIDDM and Other (Right lower extremity DVT)
Past Surgical History: Reports Other (Tonsillectomy, breast mass removal)
Social History
Tobacco: Non-smoker
Alcohol: None
Family History
Family History: Not pertinent
Allergies / Home Medications
Allergies reflects when Allergies were last updated in [facility].
Home Medications with original date entered in [facility]
Allergy/Medication List:
Allergies
Allergies
Allergy/AdvReac Type Severity Reaction Status Date / Time
albuterol Allergy 'could not Verified 09/16/23 09:13
breath'
ceftriaxone [From Rocephin] Allergy Rash Verified 09/16/23 09:13
08/28/23
admission
cefuroxime [From Ceftin] Allergy facial Verified 09/16/23 09:13
droop,lip
swell/Margie
cefepime,
cefazolin
latex Allergy Rash Verified 09/16/23 09:13
levofloxacin [From Levaquin] Allergy facial Verified 09/16/23 09:13
droop,
rash,
numbness
lisinopril Allergy Shortness Verified 09/16/23 09:13
of Breath
naproxen Allergy Rash Verified 09/16/23 09:13
NSAIDS (Non-Steroidal Allergy Rash Verified 09/16/23 09:13
Anti-Inflamma
poison aroldo extract Allergy Unknown Verified 09/16/23 09:13
poison oak extract Allergy Unknown Verified 09/16/23 09:13
Home Medications
atorvastatin 20 mg tablet 20 mg PO HS High cholesterol 11/08/19
aspirin 81 mg tablet,delayed release 81 mg PO DAILY Blood clot prevention/tx 09/01/22
acetaminophen 325 mg tablet (Tylenol) 650 mg PO Q6HPRN PRN mild pain/fever 07/27/23
potassium chloride 20 mEq tablet,extended release(part/cryst) (Klor-Con M) 20 meq PO RYAN Supplement 07/27/23
hydralazine 50 mg tablet 50 mg PO BID #60 tabs 07/31/23
miconazole nitrate 2 % topical powder (Miconazorb AF) 1 applic topical BID apply to folds 08/28/23
bisacodyl 10 mg rectal suppository (Dulcolax (bisacodyl)) 10 mg OH DAILY PRN if no BM in 8hr after MOM 09/16/23
fluticasone 250 mcg-salmeterol 50 mcg/dose blistr powdr for inhalation 1 inh inhalation R BID 09/16/23
levalbuterol tartrate 45 mcg/actuation aerosol inhaler 2 inh inhalation R DAILYPRN PRN sob 09/16/23
magnesium hydroxide 400 mg/5 mL oral suspension (Milk of Magnesia) 30 ml PO DAILY PRN if no BM x 2 days 09/16/23
mineral oil-hydrophil petrolat topical ointment (Aquaphor topical ointment) 1 applic topical DAILY apply to legs and B/L feet 09/16/23
repaglinide 0.5 mg tablet 0.5 mg PO [id number] PRN for glucose>150 09/16/23
sodium phosphates 19 gram-7 gram/118 mL enema (Fleet Enema) 118 ml OH DAILYPRN PRN if no BM 8hr after supp 09/16/23
furosemide 40 mg tablet 120 mg (3 x 40 mg) PO DAILY #0 tabs 09/21/23
isosorbide mononitrate 30 mg tablet,extended release 24 hr 30 mg PO DAILY #0 tabs 09/21/23
metoprolol succinate 25 mg tablet,extended release 24 hr 25 mg PO DAILY #0 tabs 09/21/23
Review of Systems
-
History Source: Patient
A 12 point ROS was completed and negative except as noted: Yes
Physical Exam
Vital Signs
Vital Signs
Temp Pulse Resp BP Pulse Ox
97.8 F 71 25 98/37 94
10/01/23 01:04 10/01/23 01:15 10/01/23 01:15 10/01/23 01:14 10/01/23 01:04
Physical Exam
General: Obese and Other (mildly tachypneic )
HEENT: PERRLA
Respiratory: Rales
Cardiac: S1/S2, Regular Rhythm and JVD
GI: Soft and Non Tender
Musculoskeletal: Other (b/l LE edema/ lymphedema and chronic discoloration)
Skin: Warm and Dry; No Rash
Neuro: AO x 3
Psych: Calm
Laboratory Results
-
10/01/23 01:33
10/01/23 01:33
Laboratory Results
Total Bilirubin 0.8 mg/dl (0.2-1.3) 10/01/23 01:33
AST 22 U/L (14-36) 10/01/23 01:33
ALT 14 U/L (0-35) 10/01/23 01:33
Alkaline Phosphatase 90 U/L (38-126) 10/01/23 01:33
Troponin I 0.021 ng/ml 10/01/23 01:33
Data Reviewed
-
Diagnostic Radiology: Report Reviewed by me
Lab Data: Labs Reviewed by me
Impression/Plan
-
Ms. 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
recent admissions for heart failure 08/28/23-09/10/23 and 09/16/23-09/21/23 (outpatient lasix increased from 80 to 120mg daily) presents to the ER with weight gain and shortness of breath.
Triage VS: T 97.8, P 69, RR 27, BP 98/37, SpO2 94%
LABS: WBC 8.1, Hg 10.2, PLT 268, Eos 15.7, Na 141, K+ 3.6, Cr 1.2, t. Bili 0.8, AST 22, ALT 14, Trop 0.021, BNP 60973
covid negative
EKG with LBBB, PVC's no significant change from prior
CXR - heart failure (my read)
MAR: lasix 40mg IV x 1
Heart Failure mildly Reduced EF Acute Exacerbation
-weight on discharge was 111.4kg; 118kg in the ER today
-ordered for lasix 40 in ER, will order an additional 80mg now and continue 80mg IV BID
-admit to IMU
-daily weight, strict I/O, fluid restriction
-cardiology consult
Chronic Hypoxic respiratory Failure
-patient states she has been on oxygen since got covid 2 years ago, normally wears 2 L
Eosinophilia
-unclear significant, no e/o infection, no new meds
-repeat tomorrow
CKD3b
-creatinine is at baseline
-monitor with diuresis
Other problems:
Essential hypertension: cont Hydralazine/BB/Imdur
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
DM2: SSI/accuchecks
Hyperlipidemia: cont statin
Asthma/COPD: Cont Advair
Obstructive sleep apnea
h/o right lower extremity DVT
Morbid obesity due to excess calories
DVT PPx hep subQ
FULL CODE
[2023-10-01] MEDS: KCL 40 MEQ PO (03:17)
[2023-10-01] MEDS: LASIX 80 MG IV ×2 (03:19→16:00)
[2023-10-01 06:03] LABS: Mean Corpuscular Hgb 27.3 pg (27.0-31.0); Mean Corpuscular Volume 87.9 fL (81.0-99.0); Mean Platelet Volume 9.7 fL (7.4-10.4); Platelet Count 212 10^3/uL (130-400); Red Cell Dist. Width 18.5 % (11.5-14.5)
[2023-10-01 06:29] LABS: Blood Urea Nitrogen 47 mg/dl (7-17); Calcium 8.4 mg/dl (8.4-10.2); Carbon Dioxide 31 mmol/L (22-30); Chloride 102 mmol/L (98-107); Estimated Creatinine Clearance 38 ml/min; Glucose 88 mg/dl (70-99); Magnesium 2.4 mg/dl (1.6-2.3); Potassium 3.7 mmol/L (3.5-5.1); Sodium 140 mmol/L (135-145); eGFR 35.23
[2023-10-01 06:55] LABS: % Eosinophils 18.6 % (0-6); % Immature Granulocytes 0.3 % (0-0.5); % Lymphocytes 10.6 % (20.5-51.1); % Neutrophils 60.5 % (42.2-75.2); Absolute Basophils 0.1 10^3/uL (0-0.2); Absolute Eosinophils 1.3 10^3/uL (0-0.7); Absolute Lymphocytes 0.7 10^3/uL (1.2-3.4); Absolute Monocytes 0.6 10^3/uL (0.1-0.6); Absolute Neutrophils 4.2 10^3/uL (1.4-6.5); Nucleated Red Blood Cells % 0 %
[2023-10-01] MEDS: NOVOLOG FLEXPEN-LOW RESISTANCE SC ×3 (07:25→16:33)
[2023-10-01 07:27] LABS: Glucose - Point of Care 93 mg/dl (70-99)
[2023-10-01] MEDS: ADVAIR HFA 115/21 MCG INHALER 2 PUFF INH ×2 (07:36→19:46)
[2023-10-01] MEDS: XOPENEX HFA 45 MCG INHALER 2 PUFF INH (07:38)
[2023-10-01] MEDS: TOPROL XL 25 MG PO (07:58)
[2023-10-01] MEDS: APRESOLINE 50 MG PO ×2 (07:58→20:08)
[2023-10-01] MEDS: ASPIR LOW (ENTERIC COATED) 81 MG PO (07:58)
[2023-10-01] MEDS: HEPARIN 5000 UNITS SC ×2 (07:59→20:08)
[2023-10-01] MEDS: IMDUR (EXTENDED RELEASE) 30 MG PO (07:59)
[2023-10-01] MEDS: DESENEX/MITRAZOL/ZEASORB 1 APPLIC TOPICAL ×2 (09:00→20:05)
[2023-10-01 12:36] LABS: Glucose - Point of Care 198 mg/dl (70-99)
--- NOTE | 2023-10-01 13:09 | CON.CAR ---
Addendum entered and electronically signed by Elise Pereira DO 10/01/23 17:59:
I saw and examined the patient.
The Roll Examiner's note was reviewed and I agree with the note.
Comment: Patient seen and examined with cardiac PA in ED bed 3. Well-known to us from several prior admissions in the last couple of months. She reports to have been doing well at rehab with anticipated discharge home soon. Yesterday she noted an
increased weight gain and at 10 PM developed acute shortness of breath prompting readmission for heart failure. Patient was admitted with COVID 07/27/23 until 07/31/23. Then admitted for acute HF 08/28/23 until 09/10/23 and at time of discharge she was
sent to rehab for this first time ever as she has historically refused VN or rehab suggestions. Patient was then sent from rehab to for admission for acute HF again 09/16/23 until 09/21/23. During her last admission for was SOB and her oxygen was
reportedly not working at rehab, but she was still diuresed for a discharge weight of 245 lbs. Patient was diuresed with Lasix 80 mg IV daily last admission, but her previous admission at the beginning of August she was given occasional doses of
metolazone that admission and eventually developed ALMA. Patient says that at rehab she had ham this past Thursday for [employer], but otherwise she says she is eating smaller portions and that her family is not bringing her any food. She feels that she is
not urinating as much with her regular Lasix dosing. No recent changes or missed doses of diuretics.
General: NAD, AAOX3
HEENT: mmm
Heart: Regular with ectopy, positive S1/S2, 2/6 SM
Lungs: Wearing oxygen at 2 L NC. Bronchovesicular breath sounds decreased at the bases without wheezes. Fine crackles right base
Abd: +BS, ND, NT, soft, obese
Ext: Chronic lymphedema changes. +3 B/L LE hard non-pitting edema.
Neuro: No focal or lateralizing weakness
Plan:
Readmission for ongoing heart failure with mildly reduced ejection fraction
-Continue IV Lasix. May need metolazone at time of discharge
-I's/O's, daily weights
-Follow Cre with diuresis
-Repeat 2D echo cardiac
-Monitor on telemetry with history of asymptomatic PVCs
-Optimize medical therapy as able
-Chronic O2 supplementation;
-Continue PT efforts.
Patient has previously been seen by pulmonary both inpatient and outpatient
-Has not been seen in pulmonary office since 2021
-History of sleep apnea diagnosed in 2018 self discontinued CPAP on nocturnal oxygen. Will talk with patient about retrial
-Mild interstitial changes on CT chest with mild restriction and moderate gas exchange deficit in 2020 PFTs. Would repeat in euvolemic state
Chronic lymphedema with venous stasis changes status post recent cellulitis
Original Note:
Consultation
Consultation Request
Date/Time Consultation Requested: 10/01/23
Date/Time Consultation Performed: 10/01/23
Requesting Provider: Dr. Cheney
Performing Provider: Dr. Pereira
Reason for Consultation: Acute HF
Medical History
-
History of Present Illness:
Patient came to [facility] early this morning with increased SOB and is now admitted with acute HF so cardiology has been consulted. Patient was admitted with COVID 07/27/23 until 07/31/23. Then admitted for acute HF 08/28/23 until 09/10/23 and at time of
discharge she was sent to rehab for this first time ever as she has historically refused VN or rehab suggestions. Patient was then sent from rehab to for admission for acute HF again 09/16/23 until 09/21/23. During her last admission for was SOB
and her oxygen was reportedly not working at rehab, but she was still diuresed for a discharge weight of 245 lbs. Patient was diuresed with Lasix 80 mg IV daily last admission, but her previous admission at the beginning of August she was given
occasional doses of metolazone that admission and eventually developed ALMA. Patient says that at rehab she had ham this past Thursday for [employer], but otherwise she says she is eating smaller portions and that her family is not bringing her any food.
She feels that she is not urinating as much with her regular Lasix dosing.
PMH:
Recent admission for acute HF 09/16/23 until 09/21/23
Recent admission for acute HF 08/28/23 until 09/10/23
Recent admission for COVID-19 treated with Paxlovid and Decadron 07/27/23 until 07/31/23
CKD 3b
Chronic hypoxic respiratory failure on home oxygen 1-2 L via NC
Frequent PVCs and bigeminy
Asthma/COPD
Chronic Lymphedema and chronic venous stasis changes
Hypertension
HLD
DM II
MARIAMA
Peripheral Neuropathy
History of DVT
Morbid Obesity
Medication and dietary non-adherence
Past Medical History
Past Medical History: Other (in HPI)
Past Surgical History: Other (B/L cataract surgery, Several D&Cs, miscarriage, Tonsillectomy, Cancerous mass removed from right leg 20 years ago, Breast mass removed noncancerous)
Social History
Tobacco: Non-Smoker
Alcohol: None
Living: Care Home (rehab at [facility], but plans to return home with family)
Family History
Family History: Cancer and Other (thamassemia)
Allergies / Home Medications
Allergy/AdvReac Type Severity Reaction Status Date / Time
albuterol Allergy 'could not Verified 09/16/23 09:13
breath'
ceftriaxone [From Rocephin] Allergy Rash Verified 09/16/23 09:13
08/28/23
admission
cefuroxime [From Ceftin] Allergy facial Verified 09/16/23 09:13
droop,lip
swell/Margie
cefepime,
cefazolin
latex Allergy Rash Verified 09/16/23 09:13
levofloxacin [From Levaquin] Allergy facial Verified 09/16/23 09:13
droop,
rash,
numbness
lisinopril Allergy Shortness Verified 09/16/23 09:13
of Breath
naproxen Allergy Rash Verified 09/16/23 09:13
NSAIDS (Non-Steroidal Allergy Rash Verified 09/16/23 09:13
Anti-Inflamma
poison aroldo extract Allergy Unknown Verified 09/16/23 09:13
poison oak extract Allergy Unknown Verified 09/16/23 09:13
�Medication �Instructions �Recorded �Confirmed �Type
atorvastatin 20 mg tablet 20 mg PO HS High cholesterol 11/08/19 10/01/23 History
aspirin 81 mg tablet,delayed 81 mg PO DAILY Blood clot 09/01/22 10/01/23 History
release prevention/tx
acetaminophen 325 mg tablet 650 mg PO Q6HPRN PRN mild 07/27/23 10/01/23 History
(Tylenol) pain/fever
potassium chloride 20 mEq 20 meq PO RYAN Supplement 07/27/23 10/01/23 History
tablet,extended
release(part/cryst) (Klor-Con M)
hydralazine 50 mg tablet 50 mg PO BID #60 tabs 07/31/23 10/01/23 Rx
miconazole nitrate 2 % topical 1 applic topical BID apply to folds 08/28/23 10/01/23 History
powder (Miconazorb AF)
bisacodyl 10 mg rectal suppository 10 mg OK DAILY PRN if no BM in 8hr 09/16/23 10/01/23 History
(Dulcolax (bisacodyl)) after MOM
levalbuterol tartrate 45 2 inh inhalation R DAILYPRN PRN sob 09/16/23 10/01/23 History
mcg/actuation aerosol inhaler
magnesium hydroxide 400 mg/5 mL 30 ml PO DAILY PRN if no BM x 2 09/16/23 10/01/23 History
oral suspension (Milk of Magnesia) days
repaglinide 0.5 mg tablet 0.5 mg PO [id number] PRN for 09/16/23 10/01/23 History
glucose>150
sodium phosphates 19 gram-7 118 ml OK DAILYPRN PRN if no BM 09/16/23 10/01/23 History
gram/118 mL enema (Fleet Enema) 8hr after supp
furosemide 40 mg tablet 120 mg (3 x 40 mg) PO DAILY #0 tabs 09/21/23 10/01/23 Rx
isosorbide mononitrate 30 mg 30 mg PO DAILY #0 tabs 09/21/23 10/01/23 Rx
tablet,extended release 24 hr
metoprolol succinate 25 mg 25 mg PO DAILY #0 tabs 09/21/23 10/01/23 Rx
tablet,extended release 24 hr
ammonium lactate 12 % lotion 1 applic topical BID apply to BLLE 10/01/23 10/01/23 History
Review of Systems
-
History Source: Patient
All other systems: Negative unless noted
Physical Exam
Vital Signs
Temp Pulse Resp BP Pulse Ox
97.8 F 68 21 139/80 92
10/01/23 01:04 10/01/23 11:30 10/01/23 11:30 10/01/23 11:00 10/01/23 07:41
General: NAD, AAOX3
HEENT: EOMI, MMM
Heart: Regular with ectopy, Negative S3 positive S1/S2, Negative S4, No murmur
Lungs: Wearing oxygen at 2 L NC. No wheeze B/L.
Abd: +BS, ND, NT, soft
Ext: Chronic lymphedema changes. +3 B/L LE hard non-pitting edema. No clubbing, cyanosis or lesions B/L
Neuro: No focal or lateralizing weakness
Skin: Warm, dry and pink. No rash
Lab Results
10/01/23 05:52
10/01/23 05:52
Troponin I 0.021 ng/ml 10/01/23 01:33
Vzm-R-Oqiaclszdgh Pept 63746 pg/ml 10/01/23 01:33
Impression / Plan
-
PCP: Cris Avilez PA-C
Cigar Brander: Dr. Ott
Impression:
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
Recent admission for acute HF 09/16/23 until 09/21/23
Recent admission for acute HF 08/28/23 until 09/10/23
Recent admission for COVID-19 treated with Paxlovid and Decadron 07/27/23 until 07/31/23
ALMA on CKD 3b
Chronic hypoxic respiratory failure on home oxygen 1-2 L via NC
Frequent PVCs and bigeminy
Asthma/COPD
Chronic Lymphedema and chronic venous stasis changes
Hypertension
HLD
DM II
MARIAMA
Peripheral Neuropathy
History of DVT
Morbid Obesity
Medication and dietary non-adherence
Echo 08/22/21:�LVEF 53%, mild LVH, Mild MR, Mild 20/10 PRECIOUS 1.7cm2, mild AI
Echo 03/24/22: Technically limited study and patient was scanned in a wheelchair. No regional wall motion abnormalities are seen. LV ejection fraction is 53% by Phan's biplane method�of discs. Mild left ventricular hypertrophy. Normal diastolic
function. Mild mitral regurgitation is seen. This may be underestimated due to acoustic shadowing. Mild aortic stenosis. Peak/mean gradients across the aortic valve 20/10 mmHg. Using an LVOT diameter�of 2.0 cm the aortic valve by the Continuity
equation is calculated at 1.7 cm2. Mild aortic regurgitation.
Echo 12/18/2022:�EF 40-45%, global hypokinesis, moderate cLVH, stage II diastolic dysfunction, mild MS, mild MR, severely dilated LA, moderate with peak/mean gradients 45/20 mmHg, PRECIOUS 1.2 cm2, mild AR, mild TR, estimated PAP 42 mmHg,
Echo 03/16/2023: EF 45-50%, moderate cLVH, global hypokinesis, mild MR, mild to moderate with peak/mean gradients 21/12 mmHg, mild TR, estimated PAP 30-35 mmHg
Plan:
- Patient came to [facility] early this morning with increased SOB and is now admitted with acute HF so cardiology has been consulted. Patient was admitted with COVID 07/27/23 until 07/31/23. Then admitted for acute HF 08/28/23 until 09/10/23 and at time of
discharge she was sent to rehab for this first time ever as she has historically refused VN or rehab suggestions. Patient was then sent from rehab to for admission for acute HF again 09/16/23 until 09/21/23. During her last admission for was SOB
and her oxygen was reportedly not working at rehab, but she was still diuresed for a discharge weight of 245 lbs. Patient was diuresed with Lasix 80 mg IV daily last admission, but her previous admission at the beginning of August she was given
occasional doses of metolazone that admission and eventually developed ALMA. Patient says that at rehab she had ham this past Thursday for [employer], but otherwise she says she is eating smaller portions and that her family is not bringing her any food.
She feels that she is not urinating as much with her regular Lasix dosing.
-Need a bed scale weight at least. ER stretcher scale weighed patient at 260 lbs this AM. Patient weight 245 lbs at last HF discharge 09/21/23.
-Agree with Lasix 80 mg IV BID. If patient does not diurese much overnight then can try a dose of metolazone in AM although last admission patient diuresed without metolazone. Metolazone was used during her 08/28/23 until 09/10/23 admission during
which she developed ALMA.
-Follow Cre with diuresis
-Previously managed with Cardizem CD for frequent, asymptomatic PVCs. During one of her recent admissions she was changed to Toprol XL 25 mg daily. Will continue for now, watch for bradycardia.
-Previously declined SGLT-2 due to risk of infection and she is almost bedbound and incontinent.
-Previously lisinopril caused SOB. Continue outpatient dose of hydralazine 50 mg BID and might consider consider adding Imdur at some point
-ECG reviewed by me shows SR with known frequent PVCs.
-Recheck echo, EF was 45-50% by echo 03/16/23
-Overall prognosis is poor and the risk of recurrent admission is very high.
[2023-10-01] MEDS: NOVOLOG vial 1 UNITS SC (13:45)
--- NOTE | 2023-10-01 14:13 | W.PN.UPDATE ---
Update Note
Progress Note Update
Seen by Dr. Up this morning. Admitted for shortness of breath secondary to CHF decompensation. Patient with multiple episodes of CHF decompensation lately. Seen by cardiology this afternoon. Continue with diuresis and follow creatinine
closely.
--- NOTE | 2023-10-01 16:21 | PTCARENOTE ---
Arrived to unit and pulled over to bed from ED stretcher. Arrived on 4L pulse ox 94%. Oriented to room, call disla within reach.
[2023-10-01 16:23] LABS: Glucose - Point of Care 98 mg/dl (70-99)
[2023-10-01] MEDS: LIPITOR 20 MG PO (20:10)
[2023-10-01 21:35] LABS: Glucose - Point of Care 123 mg/dl (70-99)
[2023-10-02 03:12] VITALS: BP 149/70
[2023-10-02 06:00] VITALS: BMI 47.2
[2023-10-02 07:58] LABS: Glucose - Point of Care 80 mg/dl (70-99)
[2023-10-02] MEDS: NOVOLOG FLEXPEN-LOW RESISTANCE SC ×3 (08:15→15:50)
[2023-10-02] MEDS: ADVAIR HFA 115/21 MCG INHALER 2 PUFF INH ×2 (08:20→19:58)
[2023-10-02 08:58] VITALS: BP 139/71
[2023-10-02] MEDS: LASIX 80 MG IV ×2 (09:09→16:26)
[2023-10-02] MEDS: IMDUR (EXTENDED RELEASE) 30 MG PO (09:10)
[2023-10-02] MEDS: TOPROL XL 25 MG PO (09:10)
[2023-10-02] MEDS: ASPIR LOW (ENTERIC COATED) 81 MG PO (09:10)
[2023-10-02] MEDS: APRESOLINE 50 MG PO ×2 (09:10→20:43)
[2023-10-02] MEDS: HEPARIN 5000 UNITS SC ×2 (09:11→19:52)
[2023-10-02] MEDS: DESENEX/MITRAZOL/ZEASORB 1 APPLIC TOPICAL ×2 (09:21→20:05)
[2023-10-02 10:26] LABS: Blood Urea Nitrogen 50 mg/dl (7-17); Glucose 142 mg/dl (70-99)
[2023-10-02 10:27] LABS: Calcium 8.6 mg/dl (8.4-10.2); Carbon Dioxide 31 mmol/L (22-30); Chloride 99 mmol/L (98-107); Estimated Creatinine Clearance 36 ml/min; Potassium 4.3 mmol/L (3.5-5.1); Sodium 140 mmol/L (135-145)
--- NOTE | 2023-10-02 10:33 | PTCARENOTE ---
Patient with 9 beats of VTACH. asymptomatic. Cardiology aware.
[2023-10-02 10:34] VITALS: BMI 44.5
--- NOTE | 2023-10-02 10:59 | W.PN.HOSP.TC ---
Today's Communication/Plan
-
CW diuresis IV
Check facial xray
Assessment / Plan
Assessment / Plan
Ms. 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
recent admissions for heart failure 08/28/23-09/10/23 and 09/16/23-09/21/23 (outpatient lasix increased from 80 to 120mg daily) presents to the ER with weight gain and shortness of breath.
Acute on chronic Heart Failure mildly Reduced EF Acute Exacerbation
-weight on discharge was 111.4kg; 118kg in the ER
-continue 80mg IV BID
-ECHO 09/30 shows midrange EF ,diastolic dysfunction as before but slightly higher pulmonary systolic arterial pressure.
-daily weight, strict I/O, fluid restriction
-cardiology following
Chronic Hypoxic respiratory Failure
-patient states she has been on oxygen since got covid 2 years ago, normally wears 2 L
Eosinophilia
-unclear significant, no e/o infection, no new meds
-follow for now
CKD3b
-creatinine is at baseline
-monitor with diuresis
Loose bone in left nostril - no trauma -check facial xray .
Other problems:
Essential hypertension: cont Hydralazine/BB/Imdur
PVC's: FOOD CHECKER Metoprolol
DM2: SSI/accuchecks
Hyperlipidemia: cont statin
Asthma/COPD: Cont Advair
Obstructive sleep apnea
h/o right lower extremity DVT
Morbid obesity due to excess calories
DVT PPx hep subQ
FULL CODE
Anticipated Discharge: > 48 hours
Subjective/Interval History
-
Date of Service: October 02, 2023
Feels breathing is improved. Normally on 2 L of oxygen at home. She is currently on 3 L.
No chest pain.
She brings to my attention about possible loose bone in the left nostril for the last 2 months. Nontraumatic. She states it gets in place when she takes deep breath and feels it looser when she blows her nose.
Objective Data
-
Labs:
Laboratory Results
10/02/23
09:35
Sodium 140
Potassium 4.3
Chloride 99
Carbon Dioxide 31 H
BUN 50 H
Creatinine 1.6 H
Glucose 142 H
Calcium 8.6
Vital Signs:
Vital Signs
Temp Pulse Resp BP Pulse Ox
97.6 F 62 20 168/70 97
10/02/23 08:58 10/02/23 09:10 10/02/23 08:58 10/02/23 09:10 10/02/23 09:22
I&O
10/01/23 10/02/23 10/03/23
06:59 06:59 06:59
Intake Total 0 / 0
Output Total 250 / 250
Balance -250 / -250
Review of Systems
-
EENT: Denies Sore Throat
Respiratory: Denies Cough
Cardiac: Denies Chest Pain
Abdomen/GI: Denies Abdominal Pain, Nausea or Vomiting
Neuro: Denies Dizzy
Physical Exam
-
General: No Apparent Distress
HEENT: Moist Mucous Membranes
Respiratory: Clear to Auscultation
Cardiac: Regular Rhythm and S1/S2
GI: Soft
Musculoskeletal: Edema, Right Lower Extrem and Edema, Left Lower Extrem (With chronic venous insufficiency changes)
Neuro: AO x 3
Psych: Calm; Negative Confused or Agitated
Data Reviewed
-
Labs: Labs Reviewed by me
--- NOTE | 2023-10-02 11:20 | W.PN.CARDCBS ---
Addendum entered and electronically signed by Maverick Ott MD 10/02/23 12:35:
I saw and examined the patient.
The SOCIAL SCIENCE PROFESSOR or PA's note was reviewed and I agree with the note.
Comment: General: Well developed, well nourished in NAD.
Neck: Supple, no JVD, HJR, carotids +2 B/L, no bruits bilaterally.
Heart: Non displaced PMI, RRR, no murmurs, No S3, S4, no rubs.
Lungs: Scattered rhonchi
Extremities: Chronic venous stasis changes
Neuro: Grossly nonfocal, awake, alert and oriented x3.
She remains very difficult to treat with multiple admissions. Will continue IV Lasix. Standing scale weight is 251 pounds. She was 245 pounds on discharge on 09/21/2023. Telemetry with brief episode of nonsustained V. tach. Asymptomatic.
Ejection fraction 45 to 50%. Continue Toprol. Discussed with nursing
Original Note:
Today's Communication / Plan
-
continue IV lasix
follow Cr
check mag. continue BB. follow on tele
Impression / Plan
-
PCP: Cris Avilez PA-C
Mortician Supplies Sales Representative: Dr. Ott
Impression:
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
Recent admission for acute HF 09/16/23 until 09/21/23
Recent admission for acute HF 08/28/23 until 09/10/23
Recent admission for COVID-19 treated with Paxlovid and Decadron 07/27/23 until 07/31/23
ALMA on CKD 3b
Chronic hypoxic respiratory failure on home oxygen 1-2 L via NC
Frequent PVCs and bigeminy
Asthma/COPD
Chronic Lymphedema and chronic venous stasis changes
Hypertension
HLD
DM II
MARIAMA
Peripheral Neuropathy
History of DVT
Morbid Obesity
Medication and dietary non-adherence
Echo 08/22/21:�LVEF 53%, mild LVH, Mild MR, Mild 20/10 PRECIOUS 1.7cm2, mild AI
Echo 03/24/22: Technically limited study and patient was scanned in a wheelchair. No regional wall motion abnormalities are seen. LV ejection fraction is 53% by Phan's biplane method�of discs. Mild left ventricular hypertrophy. Normal diastolic
function. Mild mitral regurgitation is seen. This may be underestimated due to acoustic shadowing. Mild aortic stenosis. Peak/mean gradients across the aortic valve 20/10 mmHg. Using an LVOT diameter�of 2.0 cm the aortic valve by the Continuity
equation is calculated at 1.7 cm2. Mild aortic regurgitation.
Echo 12/18/2022:�EF 40-45%, global hypokinesis, moderate cLVH, stage II diastolic dysfunction, mild MS, mild MR, severely dilated LA, moderate with peak/mean gradients 45/20 mmHg, PRECIOUS 1.2 cm2, mild AR, mild TR, estimated PAP 42 mmHg,
Echo 03/16/2023: EF 45-50%, moderate cLVH, global hypokinesis, mild MR, mild to moderate with peak/mean gradients 21/12 mmHg, mild TR, estimated PAP 30-35 mmHg
ECHO 10/01/23: EF 45 to 50%, global hypokinesis, moderate to severe concentric LVH, stage II diastolic dysfunction, mildly dilated RV, mitral sclerosis, mild to moderate , peak/mean gradients 26/18 mmHg, mild AR, mild to moderate TR, PAP 60 to 65
mmHg
Plan:
-continue IV lasix diuresis, currently on 80mg IV BID. weight trending down if accurate. Cr up slightly to 1.6. dry weight 245 pounds. was on po lasix 120mg daily prior to admission
-of note, Metolazone was used during her 08/28/23 until 09/10/23 admission during which she developed ALMA.
-chronically on 2L supp O2 as OP, wean supp O2 here as able
-on review of tele overnight, in SR with frequent PVCs at times in pattern of bigeminy, one 8 beat run of NSVT and one brief run of AT. continue toprol. K stable. check mag
-Previously declined SGLT-2 due to risk of infection and she is almost bedbound and incontinent.
-Previously lisinopril caused SOB. Continue outpatient dose of hydralazine 50 mg BID and imdur 30mg daily
-echo with results as above, EF stable compared to prior
-Overall prognosis poor and the risk of recurrent admission is very high.
PREADMIT DATA:
-Patient came to [facility] early this morning with increased SOB and is now admitted with acute HF so cardiology has been consulted. Patient was admitted with COVID 07/27/23 until 07/31/23. Then admitted for acute HF 08/28/23 until 09/10/23 and at time of
discharge she was sent to rehab for this first time ever as she has historically refused VN or rehab suggestions. Patient was then sent from rehab to for admission for acute HF again 09/16/23 until 09/21/23. During her last admission for was SOB
and her oxygen was reportedly not working at rehab, but she was still diuresed for a discharge weight of 245 lbs. Patient was diuresed with Lasix 80 mg IV daily last admission, but her previous admission at the beginning of August she was given
occasional doses of metolazone that admission and eventually developed ALMA. Patient says that at rehab she had ham this past Thursday for [employer], but otherwise she says she is eating smaller portions and that her family is not bringing her any food.
She feels that she is not urinating as much with her regular Lasix dosing.
Progress Note - Mortician Supplies Sales Representative
Subjective
Date of Service: October 02, 2023
reports some improvement in breathing and increased urine output compared to at rehab
Objective
Labs:
10/01/23 05:52
10/02/23 09:35
Labs
Hgb 9.0 g/dL (12.0-16.0) L 10/01/23 05:52
Hct 29.0 % (37.0-47.0) L 10/01/23 05:52
Plt Count 212 10^3/uL (130-400) D 10/01/23 05:52
Sodium 140 mmol/L (135-145) 10/02/23 09:35
Potassium 4.3 mmol/L (3.5-5.1) 10/02/23 09:35
BUN 50 mg/dl (7-17) H 10/02/23 09:35
Creatinine 1.6 mg/dL (0.6-1.0) H 10/02/23 09:35
Glucose 142 mg/dl (70-99) H 10/02/23 09:35
Troponins
10/01/23
01:33
Troponin I 0.021
Vital Signs and I&O:
Vital Signs
Temp Pulse Resp BP Pulse Ox
97.6 F 62 20 168/70 97
10/02/23 08:58 10/02/23 09:10 10/02/23 08:58 10/02/23 09:10 10/02/23 09:22
Vital Signs
Temp Pulse Resp BP Pulse Ox
97.6 F 62 20 168/70 97
10/02/23 08:58 10/02/23 09:10 10/02/23 08:58 10/02/23 09:10 10/02/23 09:22
Intake & Output
09/30/23 10/01/23 10/02/23 10/03/23
07:59 07:59 07:59 07:59
Intake Total 0 / 0
Output Total 250 / 250
Balance -250 / -250
Physical Exam
Physical Exam
GEN: No distress, awake, alert, oriented x3. sitting in chair. obese. on supp O2
HEENT: supple, anicteric, mmm, eomi
LUNGS: Few crackles B/L bases, no wheezes/rales
CV: Irreg, S1/S2, 1/6 syst LSB
ABD: soft, BS+, NT/ND
NEURO: Gross non-focal
[2023-10-02 11:36] LABS: Glucose - Point of Care 131 mg/dl (70-99)
[2023-10-02 12:07] VITALS: BP 121/69
[2023-10-02 12:09] LABS: Magnesium 2.3 mg/dl (1.6-2.3)
[2023-10-02 15:18] VITALS: BP 115/70
[2023-10-02 15:43] LABS: Glucose - Point of Care 148 mg/dl (70-99)
--- NOTE | 2023-10-02 17:32 | CM ---
met with patient at bedside.patient adm with acute hf from [facility].she amb with a walker and needs assist with adl's .her pcp is dr matthew and she uses [facility] for her meds.patient is on iv diuretics.she is on 4 liters
nc o2 now..patient uses chronic home o2 at 2 liters nc from [facility].she was seen by phyisical therapy who rceommended patient return to intermediate.sent referral to [facility]. Plan:hopefully return to [facility] when stable for discharge.
[2023-10-02 19:55] VITALS: BP 133/66
[2023-10-02] MEDS: XOPENEX HFA 45 MCG INHALER 2 PUFF INH (19:57)
[2023-10-02] MEDS: LIPITOR 20 MG PO (20:44)
[2023-10-02 21:38] LABS: Glucose - Point of Care 120 mg/dl (70-99)
[2023-10-02 23:53] VITALS: BP 155/63
[2023-10-03] VITALS (7 sets, daily range): BP systolic 118–135; BP diastolic 56–75
[2023-10-03 06:59] LABS: Glucose - Point of Care 95 mg/dl (70-99)
[2023-10-03 07:20] LABS: Blood Urea Nitrogen 49 mg/dl (7-17); Calcium 8.3 mg/dl (8.4-10.2); Carbon Dioxide 31 mmol/L (22-30); Chloride 104 mmol/L (98-107); Estimated Creatinine Clearance 37 ml/min; Glucose 84 mg/dl (70-99); Potassium 3.8 mmol/L (3.5-5.1); Sodium 138 mmol/L (135-145); eGFR 35.23
[2023-10-03] MEDS: ADVAIR HFA 115/21 MCG INHALER 2 PUFF INH ×2 (07:40→20:09)
[2023-10-03] MEDS: NOVOLOG FLEXPEN-LOW RESISTANCE SC ×3 (08:28→16:25)
[2023-10-03] MEDS: IMDUR (EXTENDED RELEASE) 30 MG PO (08:30)
[2023-10-03] MEDS: APRESOLINE 50 MG PO ×2 (08:30→20:18)
[2023-10-03] MEDS: ASPIR LOW (ENTERIC COATED) 81 MG PO (08:31)
[2023-10-03] MEDS: TOPROL XL 25 MG PO (08:31)
[2023-10-03] MEDS: HEPARIN 5000 UNITS SC ×2 (08:31→20:19)
[2023-10-03] MEDS: LASIX 80 MG IV ×2 (08:31→16:32)
[2023-10-03] MEDS: DESENEX/MITRAZOL/ZEASORB 1 APPLIC TOPICAL ×2 (08:34→20:28)
--- NOTE | 2023-10-03 11:33 | W.PN.CARDCBS ---
Addendum entered and electronically signed by Jayro Naik MD 10/03/23 11:48:
Patient seen, interviewed and examined by me.
Well-appearing, no acute distress
Regular rate and rhythm, ectopy, normal S1 and S2, no S3 no S4. There is a grade 1/6 apical holosystolic murmur and no rubs. PMI is normally placed.
Lungs are clear to auscultation bilaterally without wheezes rales or rhonchi.
Abdomen soft nontender nondistended with normoactive bowel sounds
Extremities show marked lower extremity edema
Neurologic exam is grossly nonfocal.
Agree with advanced practice professionals assessment and plan as noted below.
She needs to continued IV Lasix diuresis
Original Note:
Today's Communication / Plan
-
Cont Lasix 80 mg IV BID for now
Weights not correct
Echo stable
Impression / Plan
-
PCP: Cris Avilez PA-C
Soil Analyst: Dr. Ott
Impression:
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
Recent admission for acute HF 09/16/23 until 09/21/23
Recent admission for acute HF 08/28/23 until 09/10/23
Recent admission for COVID-19 treated with Paxlovid and Decadron 07/27/23 until 07/31/23
ALMA on CKD 3b
Chronic hypoxic respiratory failure on home oxygen 1-2 L via NC
Frequent PVCs and bigeminy
Asthma/COPD
Chronic Lymphedema and chronic venous stasis changes
Hypertension
HLD
DM II
MARIAMA
Peripheral Neuropathy
History of DVT
Morbid Obesity
Medication and dietary non-adherence
Echo 08/22/21:�LVEF 53%, mild LVH, Mild MR, Mild 20 PRECIOUS 1.7cm2, mild AI
Echo 03/24/22: Technically limited study and patient was scanned in a wheelchair. No regional wall motion abnormalities are seen. LV ejection fraction is 53% by Phan's biplane method�of discs. Mild left ventricular hypertrophy. Normal diastolic
function. Mild mitral regurgitation is seen. This may be underestimated due to acoustic shadowing. Mild aortic stenosis. Peak/mean gradients across the aortic valve 20/10 mmHg. Using an LVOT diameter�of 2.0 cm the aortic valve by the Continuity
equation is calculated at 1.7 cm2. Mild aortic regurgitation.
Echo 12/18/2022:�EF 40-45%, global hypokinesis, moderate cLVH, stage II diastolic dysfunction, mild MS, mild MR, severely dilated LA, moderate with peak/mean gradients 45/20 mmHg, PRECIOUS 1.2 cm2, mild AR, mild TR, estimated PAP 42 mmHg,
Echo 03/16/2023: EF 45-50%, moderate cLVH, global hypokinesis, mild MR, mild to moderate with peak/mean gradients 21/12 mmHg, mild TR, estimated PAP 30-35 mmHg
ECHO 10/01/23: EF 45 to 50%, global hypokinesis, moderate to severe concentric LVH, stage II diastolic dysfunction, mildly dilated RV, mitral sclerosis, mild to moderate , peak/mean gradients 26/18 mmHg, mild AR, mild to moderate TR, PAP 60 to 65
mmHg
Plan:
-Weights are up and down, doubt patient lost 15 lbs overnight into 10/03/23, but overall she is trending down and is symptomatically improved. Patient weight 245 lbs at last HF discharge 09/21/23.
-Cont Lasix 80 mg IV BID.
-Of note, metolazone was used during her 08/28/23 until 09/10/23 admission during which she developed ALMA.
-Previously managed with Cardizem CD for frequent, asymptomatic PVCs. During one of her recent admissions she was changed to Toprol XL 25 mg daily. Will continue for now, watch for bradycardia.
-Previously declined SGLT-2 due to risk of infection and she is almost bedbound and incontinent.
-Previously lisinopril caused SOB. Continue outpatient dose of hydralazine 50 mg BID and might consider consider adding Imdur at some point
-Echo rechecked this admission and is overall stable. Reviewed with patient that recurrent HF admissions lends to a poor prognosis. Patient says she is motivated to complete rehab and return home. She says family is not bringing in outside food and
that she is eating only the food served to her at rehab.
PREADMIT DATA:
-Patient came to [facility] early this morning with increased SOB and is now admitted with acute HF so cardiology has been consulted. Patient was admitted with COVID 07/27/23 until 07/31/23. Then admitted for acute HF 08/28/23 until 09/10/23 and at time of
discharge she was sent to rehab for this first time ever as she has historically refused VN or rehab suggestions. Patient was then sent from rehab to for admission for acute HF again 09/16/23 until 09/21/23. During her last admission for was SOB
and her oxygen was reportedly not working at rehab, but she was still diuresed for a discharge weight of 245 lbs. Patient was diuresed with Lasix 80 mg IV daily last admission, but her previous admission at the beginning of August she was given
occasional doses of metolazone that admission and eventually developed ALMA. Patient says that at rehab she had ham this past Thursday for , but otherwise she says she is eating smaller portions and that her family is not bringing her any food.
She feels that she is not urinating as much with her regular Lasix dosing.
Progress Note - Soil Analyst
Subjective
Date of Service: October 03, 2023
She thinks she is doing better, less SOB getting to chair today
Objective
Labs:
10/01/23 05:52
10/03/23 05:56
Labs
Hgb 9.0 g/dL (12.0-16.0) L 10/01/23 05:52
Hct 29.0 % (37.0-47.0) L 10/01/23 05:52
Plt Count 212 10^3/uL (130-400) D 10/01/23 05:52
Sodium 138 mmol/L (135-145) 10/03/23 05:56
Potassium 3.8 mmol/L (3.5-5.1) 10/03/23 05:56
BUN 49 mg/dl (7-17) H 10/03/23 05:56
Creatinine 1.5 mg/dL (0.6-1.0) H 10/03/23 05:56
Glucose 84 mg/dl (70-99) 10/03/23 05:56
Troponins
10/01/23
01:33
Troponin I 0.021
Vital Signs and I&O:
Vital Signs
Temp Pulse Resp BP Pulse Ox
97.5 F 60 20 118/56 99
10/03/23 11:00 10/03/23 11:00 10/03/23 11:00 10/03/23 11:00 10/03/23 11:00
Vital Signs
Temp Pulse Resp BP Pulse Ox
97.5 F 60 20 118/56 99
10/03/23 11:00 10/03/23 11:00 10/03/23 11:00 10/03/23 11:00 10/03/23 11:00
Intake & Output
10/01/23 10/02/23 10/03/23 10/04/23
06:59 06:59 06:59 06:59
Intake Total 0 / 0 720 / 720
Output Total 250 / 250 500 / 500
Balance -250 / -250 220 / 220
Physical Exam
Physical Exam
General: AAOX3
HEENT: EOMI
Heart: Regular with ectopy
Lungs: Wearing oxygen at 2 L NC. No wheeze B/L.
Abd: +BS, ND
Ext: Chronic lymphedema changes. +3 B/L LE hard non-pitting edema
Neuro: No focal or lateralizing weakness
Skin: No rash
[2023-10-03 12:04] LABS: Glucose - Point of Care 108 mg/dl (70-99)
--- NOTE | 2023-10-03 13:04 | W.PN.HOSP.TC ---
Today's Communication/Plan
-
cw IV diuresis
Assessment / Plan
Assessment / Plan
Ms. 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
recent admissions for heart failure 08/28/23-09/10/23 and 09/16/23-09/21/23 (outpatient lasix increased from 80 to 120mg daily) presents to the ER with weight gain and shortness of breath.
Acute on chronic Heart Failure mildly Reduced EF Acute Exacerbation
-weight on discharge was 111.4kg; 118kg in the ER
-Improving weight-continue 80mg IV BID per cardiology
-ECHO 09/30 shows midrange EF ,diastolic dysfunction as before but slightly higher pulmonary systolic arterial pressure.
-daily weight, strict I/O, fluid restriction
-cardiology following
Chronic Hypoxic respiratory Failure
-patient states she has been on oxygen since got covid 2 years ago, normally wears 2 L
Eosinophilia
-unclear significant, no e/o infection, no new meds
-follow for now
CKD3b
-creatinine is at baseline
-monitor with diuresis
Sensation of Loose bone in left nostril - no trauma -no bony abnormalities on facial xray .
Other problems:
Essential hypertension: cont Hydralazine/BB/Imdur
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
DM2: SSI/accuchecks
Hyperlipidemia: cont statin
Asthma/COPD: Cont Advair
Obstructive sleep apnea
h/o right lower extremity DVT
Morbid obesity due to excess calories
DVT PPx hep subQ
FULL CODE
Anticipated Discharge: Within 24 hours
Subjective/Interval History
-
Date of Service: October 03, 2023
Feels slowly improved with the breathing. Rate coming down. No chest pains.
Objective Data
-
Labs:
Laboratory Results
10/03/23
05:56
Sodium 138
Potassium 3.8
Chloride 104
Carbon Dioxide 31 H
BUN 49 H
Creatinine 1.5 H
Glucose 84
Calcium 8.3 L
Vital Signs:
Vital Signs
Temp Pulse Resp BP Pulse Ox
97.5 F 60 20 118/56 99
10/03/23 11:00 10/03/23 11:00 10/03/23 11:00 10/03/23 11:00 10/03/23 11:00
I&O
10/02/23 10/03/23 10/04/23
06:59 06:59 06:59
Intake Total 0 / 0 720 / 720
Output Total 250 / 250 500 / 500
Balance -250 / -250 220 / 220
Review of Systems
-
Constitutional: Denies Fever
Abdomen/GI: Denies Abdominal Pain, Nausea or Vomiting
Neuro: Denies Dizzy
Physical Exam
-
General: No Apparent Distress
HEENT: Moist Mucous Membranes
Respiratory: Clear to Auscultation and Non Labored Respirations; Negative Accessory Resp Muscle Use
Cardiac: Regular Rhythm and S1/S2
Musculoskeletal: Edema, Right Lower Extrem and Edema, Left Lower Extrem (with BL Chronic venous dermatitis)
Neuro: AO x 3
Psych: Calm; Negative Confused
Data Reviewed
-
Labs: Labs Reviewed by me
[2023-10-03 16:17] LABS: Glucose - Point of Care 115 mg/dl (70-99)
[2023-10-03] MEDS: LIPITOR 20 MG PO (20:19)
[2023-10-03 21:40] LABS: Glucose - Point of Care 102 mg/dl (70-99)
[2023-10-04] VITALS (7 sets, daily range): BP systolic 103–146; BP diastolic 40–82; BMI 44.0
[2023-10-04 07:24] LABS: Glucose - Point of Care 93 mg/dl (70-99)
[2023-10-04] MEDS: NOVOLOG FLEXPEN-LOW RESISTANCE SC ×3 (07:39→17:05)
[2023-10-04 07:59] LABS: % Basophils 0.9 % (0-2); % Eosinophils 17.9 % (0-6); % Immature Granulocytes 0.4 % (0-0.5); % Lymphocytes 10.8 % (20.5-51.1); Absolute Basophils 0.1 10^3/uL (0-0.2); Absolute Lymphocytes 0.6 10^3/uL (1.2-3.4); Absolute Monocytes 0.6 10^3/uL (0.1-0.6); Absolute Neutrophils 3.3 10^3/uL (1.4-6.5); Hematocrit 28.4 % (37.0-47.0); Hemoglobin 8.9 g/dL (12.0-16.0); Mean Corp Hgb Conc. 31.3 g/dL (33.0-37.0); Mean Corpuscular Hgb 27.1 pg (27.0-31.0); Mean Corpuscular Volume 86.3 fL (81.0-99.0); Mean Platelet Volume 9.7 fL (7.4-10.4); Nucleated Red Blood Cells % 0 %; Platelet Count 207 10^3/uL (130-400); Red Blood Cell Count 3.29 10^6/uL (4.20-5.40); Red Cell Dist. Width 18.1 % (11.5-14.5); White Blood Cell Count 5.7 10^3/uL (4.8-10.8)
[2023-10-04] MEDS: ADVAIR HFA 115/21 MCG INHALER 2 PUFF INH ×2 (08:01→19:41)
[2023-10-04] MEDS: APRESOLINE 50 MG PO ×2 (08:19→20:11)
[2023-10-04] MEDS: ASPIR LOW (ENTERIC COATED) 81 MG PO (08:20)
[2023-10-04] MEDS: DESENEX/MITRAZOL/ZEASORB 1 APPLIC TOPICAL ×2 (08:21→20:12)
[2023-10-04] MEDS: HEPARIN 5000 UNITS SC ×2 (08:22→20:12)
[2023-10-04] MEDS: IMDUR (EXTENDED RELEASE) 30 MG PO (08:24)
[2023-10-04] MEDS: LASIX 80 MG IV ×2 (08:24→15:49)
[2023-10-04] MEDS: TOPROL XL 25 MG PO (08:25)
[2023-10-04 08:26] LABS: Blood Urea Nitrogen 47 mg/dl (7-17); Calcium 8.3 mg/dl (8.4-10.2); Carbon Dioxide 32 mmol/L (22-30); Chloride 99 mmol/L (98-107); Estimated Creatinine Clearance 37 ml/min; Glucose 83 mg/dl (70-99); Potassium 3.8 mmol/L (3.5-5.1); Sodium 137 mmol/L (135-145); eGFR 35.23
[2023-10-04 11:46] LABS: Glucose - Point of Care 117 mg/dl (70-99)
--- NOTE | 2023-10-04 12:33 | W.PN.HOSP.TC ---
Today's Communication/Plan
-
Consider dialysis
Follow expectantly
DC back to rehab when okay from cardiology standpoint
Assessment / Plan
Assessment / Plan
Ms. 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
recent admissions for heart failure 08/28/23-09/10/23 and 09/16/23-09/21/23 (outpatient lasix increased from 80 to 120mg daily) presents to the ER with weight gain and shortness of breath.
Acute on chronic Heart Failure mildly Reduced EF Acute Exacerbation
-weight on discharge was 111.4kg; 118kg in the ER
-Improving weight-continue 80mg IV BID per cardiology
-ECHO 09/30 shows midrange EF ,diastolic dysfunction as before but slightly higher pulmonary systolic arterial pressure.
-daily weight, strict I/O, fluid restriction
-cardiology following
Chronic Hypoxic respiratory Failure
-patient states she has been on oxygen since got covid 2 years ago, normally wears 2 L
Eosinophilia
-unclear trigger. no e/o infection, no new meds( last new med regimen is change of Cardizem to Hydralazine and imdur in jul 2023 during her [facility] admission)
- Would repeat it in a week or two and if still remains elevated will first consider changing Hydralazine and proceed further if still elevated. This was discussed with the patient at bedside today
CKD3b
-creatinine is at baseline
-monitor with diuresis
Sensation of Loose bone in left nostril - no trauma -no bony abnormalities on facial xray .
Other problems:
Essential hypertension: cont Hydralazine/BB/Imdur
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
DM2: SSI/accuchecks
Hyperlipidemia: cont statin
Asthma/COPD: Cont Advair
Obstructive sleep apnea
h/o right lower extremity DVT
Morbid obesity due to excess calories
DVT PPx hep subQ
FULL CODE
Anticipated Discharge: Today
Subjective/Interval History
-
Date of Service: October 04, 2023
Breathing is improved
Denies chest pain
Denies N/V
BL LE chronic venous changes - no pain ;improved swelling
Feels bit itching in general but no rash or joint pains or swellings
No urticaria
Objective Data
-
Labs:
Laboratory Results
10/04/23
07:12
WBC 5.7
Hgb 8.9 L
Hct 28.4 L
Plt Count 207
Sodium 137
Potassium 3.8
Chloride 99
Carbon Dioxide 32 H
BUN 47 H
Creatinine 1.5 H
Glucose 83
Calcium 8.3 L
Vital Signs:
Vital Signs
Temp Pulse Resp BP Pulse Ox
97.8 F 74 20 134/60 96
10/04/23 12:29 10/04/23 12:29 10/04/23 12:29 10/04/23 12:29 10/04/23 12:29
I&O
10/03/23 10/04/23 10/05/23
06:59 06:59 06:59
Intake Total 720 / 720 900 / 900 396 / 396
Output Total 500 / 500 1150 / 1150 650 / 650
Balance 220 / 220 -250 / -250 -254 / -254
Review of Systems
-
Respiratory: Denies Cough
Physical Exam
-
HEENT: Moist Mucous Membranes
Respiratory: Non Labored Respirations; Negative Wheezes, Crackles or Accessory Resp Muscle Use
Cardiac: Regular Rhythm and S1/S2
Musculoskeletal: Edema, Right Lower Extrem, Edema, Left Lower Extrem (no signs of cellulitis ;chronic venous stasis dermatitis BL noted) and Other (no swollen painful joints)
Skin: Negative Rash
Neuro: AO x 3
Psych: Calm
Data Reviewed
-
Labs: Labs Reviewed by me
[2023-10-04] MEDS: LIDOCAINE 4% PATCH 1 PATCH TOPICAL (15:41)
[2023-10-04] MEDS: TYLENOL 650 MG PO (15:41)
--- NOTE | 2023-10-04 15:42 | CHAP ---
A magnetic tester visit had been requested for Ms. Middleton. She said she was doing well. Emotional and spiritual support provided.
[2023-10-04 16:40] LABS: Glucose - Point of Care 171 mg/dl (70-99)
[2023-10-04] MEDS: LIPITOR 20 MG PO (20:14)
[2023-10-04 21:08] LABS: Glucose - Point of Care 147 mg/dl (70-99)
[2023-10-05] VITALS (7 sets, daily range): BP systolic 112–163; BP diastolic 53–67; PULSE 73; O2SAT 96; BMI 47.2; BMI 44.2
[2023-10-05] MEDS: ADVAIR HFA 115/21 MCG INHALER 2 PUFF INH ×2 (07:35→19:36)
[2023-10-05 08:09] LABS: Glucose - Point of Care 103 mg/dl (70-99)
[2023-10-05] MEDS: NOVOLOG FLEXPEN-LOW RESISTANCE SC ×3 (08:39→17:19)
[2023-10-05] MEDS: APRESOLINE 50 MG PO ×2 (08:40→20:50)
[2023-10-05] MEDS: TOPROL XL 25 MG PO (08:40)
[2023-10-05] MEDS: LASIX 80 MG IV ×2 (08:40→16:22)
[2023-10-05] MEDS: HEPARIN 5000 UNITS SC ×2 (08:40→20:45)
[2023-10-05] MEDS: IMDUR (EXTENDED RELEASE) 30 MG PO (08:40)
[2023-10-05] MEDS: ASPIR LOW (ENTERIC COATED) 81 MG PO (08:40)
[2023-10-05] MEDS: LIDOCAINE 4% PATCH 1 PATCH TOPICAL (08:40)
[2023-10-05] MEDS: DESENEX/MITRAZOL/ZEASORB 1 APPLIC TOPICAL ×2 (08:41→20:44)
--- NOTE | 2023-10-05 10:34 | CM ---
CM spoke with Farzana, admissions at [facility], currently no SNF beds available. CM met with patient, discussed no beds at [facility]. Patient agreeable to referrals to [facility], and [facility]. CM will send referrals in
[facility]. CM will continue to follow for discharge planning needs.
Plan; SNF pending accepting facility, no beds available at [facility].
--- NOTE | 2023-10-05 11:15 | W.PN.HOSP.TC ---
Today's Communication/Plan
-
Wean O2
CW diuresis
Assessment / Plan
Assessment / Plan
Ms. 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
recent admissions for heart failure 08/28/23-09/10/23 and 09/16/23-09/21/23 (outpatient lasix increased from 80 to 120mg daily) presents to the ER with weight gain and shortness of breath.
Acute on chronic Heart Failure mildly Reduced EF Acute Exacerbation
-weight on discharge was 111.4kg; 118kg in the ER
-Improving weight-continue 80mg IV BID per cardiology
-ECHO 09/30 shows midrange EF ,diastolic dysfunction as before but slightly higher pulmonary systolic arterial pressure.
-daily weight, strict I/O, fluid restriction
-cardiology following
-Patient still with exertional shortness of breath despite losing weight.Wean O2- If oxygenation is improving we will continue to follow but if significant hypoxia despite weight loss will repeat a chest x-ray
Chronic Hypoxic respiratory Failure
-patient states she has been on oxygen since got covid 2 years ago, normally wears 2 L
Eosinophilia
-unclear trigger. no e/o infection, no new meds( last new med regimen is change of Cardizem to Hydralazine and imdur in jul 2023 during her COVID admission)
- Would repeat it in a week or two and if still remains elevated will first consider changing Hydralazine and proceed further if still elevated. This was discussed with the patient at bedside today
CKD3b
-creatinine is at baseline
-monitor with diuresis
Sensation of Loose bone in left nostril - no trauma -no bony abnormalities on facial xray .
Left rotator cuff pain /decreased ROM - Non traumatic -cw symptomatic tx . Advised OP ortho follow up .
Other problems:
Essential hypertension: cont Hydralazine/BB/Imdur
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
DM2: SSI/accuchecks
Hyperlipidemia: cont statin
Asthma/COPD: Cont Advair
Obstructive sleep apnea
h/o right lower extremity DVT
Morbid obesity due to excess calories
DVT PPx hep subQ
FULL CODE
Anticipated Discharge: 24 - 48 hours
Subjective/Interval History
-
Date of Service: October 05, 2023
Patient still noticing exertional shortness of breath. Weight was gradually coming down but today's weight is up which probably is a false reading.
Minimal cough. No chest pain or palpitations.
Chronic right rotator cuff issues now having left shoulder pain and limited mobility. No trauma.
Objective Data
-
Vital Signs:
Vital Signs
Temp Pulse Resp BP Pulse Ox
97.7 F 65 16 128/60 94
10/05/23 07:55 10/05/23 07:55 10/05/23 07:55 10/05/23 07:55 10/05/23 07:55
I&O
10/04/23 10/05/23 10/06/23
06:59 06:59 06:59
Intake Total 900 / 900 1176 / 1176
Output Total 1150 / 1150 1450 / 1450
Balance -250 / -250 -274 / -274
Review of Systems
-
Constitutional: Denies Fever
Abdomen/GI: Denies Abdominal Pain, Nausea or Vomiting
Genitourinary: Denies Dysuria
Neuro: Denies Dizzy or Headache
Physical Exam
-
General: No Apparent Distress
HEENT: Moist Mucous Membranes
Respiratory: Clear to Auscultation; Negative Wheezes or Crackles
Cardiac: Regular Rhythm and S1/S2
GI: Soft
Musculoskeletal: Edema, Right Lower Extrem (As before) and Edema, Left Lower Extrem (As before)
Neuro: AO x 3
Psych: Calm
[2023-10-05 11:53] LABS: Glucose - Point of Care 123 mg/dl (70-99)
--- NOTE | 2023-10-05 14:10 | W.PN.CARDCBS ---
Addendum entered and electronically signed by Maverick Ott MD 10/05/23 16:01:
I saw and examined the patient.
The SIDEWALK REPAIRER or PA's note was reviewed and I agree with the note.
Comment: General: Well developed, well nourished in NAD.
Neck: Supple, no JVD, HJR, carotids +2 B/L, no bruits bilaterally.
Heart: Non displaced PMI, RRR, no murmurs, No S3, S4, no rubs.
Lungs: Scattered rhonchi
Extremities: Chronic venous stasis changes
Neuro: Grossly nonfocal, awake, alert and oriented x3
Volume status is difficult. Standing scale weight is 249 pounds and was 245 pounds on discharge in August 2023. Will try a dose of Zaroxolyn in addition to Lasix IV. Discussed with primary service. Possible change to oral diuretics in the next 24
to 48 hours..
Original Note:
Today's Communication / Plan
-
Try a dose of metolazone 5 mg PO x1 with this evening's dose of Lasix 80 mg IV BID
Impression / Plan
-
PCP: Cris Avilez PA-C
Manager Foreign: Dr. Ott
Impression:
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
Recent admission for acute HF 09/16/23 until 09/21/23
Recent admission for acute HF 08/28/23 until 09/10/23
Recent admission for COVID-19 treated with Paxlovid and Decadron 07/27/23 until 07/31/23
ALMA on CKD 3b
Chronic hypoxic respiratory failure on home oxygen 1-2 L via NC
Frequent PVCs and bigeminy
Asthma/COPD
Chronic Lymphedema and chronic venous stasis changes
Hypertension
HLD
DM II
MARIAMA
Peripheral Neuropathy
History of DVT
Morbid Obesity
Medication and dietary non-adherence
Echo 08/22/21:�LVEF 53%, mild LVH, Mild MR, Mild 20/10 PRECIOUS 1.7cm2, mild AI
Echo 03/24/22: Technically limited study and patient was scanned in a wheelchair. No regional wall motion abnormalities are seen. LV ejection fraction is 53% by Phan's biplane method�of discs. Mild left ventricular hypertrophy. Normal diastolic
function. Mild mitral regurgitation is seen. This may be underestimated due to acoustic shadowing. Mild aortic stenosis. Peak/mean gradients across the aortic valve 20/10 mmHg. Using an LVOT diameter�of 2.0 cm the aortic valve by the Continuity
equation is calculated at 1.7 cm2. Mild aortic regurgitation.
Echo 12/18/2022:�EF 40-45%, global hypokinesis, moderate cLVH, stage II diastolic dysfunction, mild MS, mild MR, severely dilated LA, moderate with peak/mean gradients 45/20 mmHg, PRECIOUS 1.2 cm2, mild AR, mild TR, estimated PAP 42 mmHg,
Echo 03/16/2023: EF 45-50%, moderate cLVH, global hypokinesis, mild MR, mild to moderate with peak/mean gradients 21/12 mmHg, mild TR, estimated PAP 30-35 mmHg
ECHO 10/01/23: EF 45 to 50%, global hypokinesis, moderate to severe concentric LVH, stage II diastolic dysfunction, mildly dilated RV, mitral sclerosis, mild to moderate , peak/mean gradients 26/18 mmHg, mild AR, mild to moderate TR, PAP 60 to 65
mmHg
Plan:
-Weights continue to be up and down by 15 lbs day to day. Patient weight 245 lbs at last HF discharge 09/21/23.
-Cont Lasix 80 mg IV BID and will try a dose of metolazone 5 mg PO x1 10/05/23.
-Previously managed with Cardizem CD for frequent, asymptomatic PVCs. During one of her recent admissions she was changed to Toprol XL 25 mg daily. Will continue for now, watch for bradycardia.
-Previously declined SGLT-2 due to risk of infection and she is almost bedbound and incontinent.
-Previously lisinopril caused SOB. Continue outpatient dose of hydralazine 50 mg BID and might consider consider adding Imdur at some point
-Echo rechecked this admission and is overall stable. Reviewed with patient that recurrent HF admissions lends to a poor prognosis. Patient says she is motivated to complete rehab and return home. She says family is not bringing in outside food and
that she is eating only the food served to her at rehab.
PREADMIT DATA:
-Patient came to [facility] early this morning with increased SOB and is now admitted with acute HF so cardiology has been consulted. Patient was admitted with COVID 07/27/23 until 07/31/23. Then admitted for acute HF 08/28/23 until 09/10/23 and at time of
discharge she was sent to rehab for this first time ever as she has historically refused VN or rehab suggestions. Patient was then sent from rehab to for admission for acute HF again 09/16/23 until 09/21/23. During her last admission for was SOB
and her oxygen was reportedly not working at rehab, but she was still diuresed for a discharge weight of 245 lbs. Patient was diuresed with Lasix 80 mg IV daily last admission, but her previous admission at the beginning of August she was given
occasional doses of metolazone that admission and eventually developed ALMA. Patient says that at rehab she had ham this past Thursday for [facility], but otherwise she says she is eating smaller portions and that her family is not bringing her any food.
She feels that she is not urinating as much with her regular Lasix dosing.
Progress Note - Manager Foreign
Subjective
Date of Service: October 05, 2023
She says she is still HUA
Objective
Labs:
10/04/23 07:12
10/04/23 07:12
Labs
Hgb 8.9 g/dL (12.0-16.0) L 10/04/23 07:12
Hct 28.4 % (37.0-47.0) L 10/04/23 07:12
Plt Count 207 10^3/uL (130-400) 10/04/23 07:12
Sodium 137 mmol/L (135-145) 10/04/23 07:12
Potassium 3.8 mmol/L (3.5-5.1) 10/04/23 07:12
BUN 47 mg/dl (7-17) H 10/04/23 07:12
Creatinine 1.5 mg/dL (0.6-1.0) H 10/04/23 07:12
Glucose 83 mg/dl (70-99) 10/04/23 07:12
Vital Signs and I&O:
Vital Signs
Temp Pulse Resp BP Pulse Ox
97.9 F 57 20 134/54 96
10/05/23 11:00 10/05/23 11:00 10/05/23 11:00 10/05/23 11:00 10/05/23 11:00
Vital Signs
Temp Pulse Resp BP Pulse Ox
97.9 F 57 20 134/54 96
10/05/23 11:00 10/05/23 11:00 10/05/23 11:00 10/05/23 11:00 10/05/23 11:00
Intake & Output
10/03/23 10/04/23 10/05/23 10/06/23
06:59 06:59 06:59 06:59
Intake Total 720 / 720 900 / 900 1176 / 1176
Output Total 500 / 500 1150 / 1150 1450 / 1450
Balance 220 / 220 -250 / -250 -274 / -274
Physical Exam
Physical Exam
General: AAOX3
HEENT: EOMI
Heart: Regular with ectopy
Lungs: Wearing oxygen at 2 L NC. No wheeze B/L.
Abd: +BS, ND
Ext: Chronic lymphedema changes. +3 B/L LE hard non-pitting edema
Neuro: No focal or lateralizing weakness
Skin: No rash
[2023-10-05] MEDS: ZAROXOLYN 5 MG PO (16:22)
[2023-10-05] MEDS: TYLENOL 650 MG PO ×2 (16:33→23:21)
[2023-10-05 16:39] LABS: Glucose - Point of Care 120 mg/dl (70-99)
[2023-10-05] MEDS: LIPITOR 20 MG PO (20:43)
[2023-10-05 21:31] LABS: Glucose - Point of Care 119 mg/dl (70-99)
[2023-10-06] VITALS (8 sets, daily range): BP systolic 109–144; BP diastolic 47–71; PULSE 57; O2SAT 90; BMI 44.6; BMI 44.2
[2023-10-06 06:04] LABS: % Basophils 0.9 % (0-2); % Eosinophils 13.8 % (0-6); % Immature Granulocytes 0.2 % (0-0.5); % Lymphocytes 13.4 % (20.5-51.1); % Monocytes 10.4 % (1.7-9.3); % Neutrophils 61.3 % (42.2-75.2); Absolute Basophils 0.1 10^3/uL (0-0.2); Absolute Eosinophils 0.8 10^3/uL (0-0.7); Absolute Lymphocytes 0.8 10^3/uL (1.2-3.4); Absolute Monocytes 0.6 10^3/uL (0.1-0.6); Absolute Neutrophils 3.5 10^3/uL (1.4-6.5); Hematocrit 28.5 % (37.0-47.0); Hemoglobin 8.9 g/dL (12.0-16.0); Mean Corp Hgb Conc. 31.2 g/dL (33.0-37.0); Mean Corpuscular Hgb 26.8 pg (27.0-31.0); Mean Corpuscular Volume 85.8 fL (81.0-99.0); Mean Platelet Volume 9.4 fL (7.4-10.4); Nucleated Red Blood Cells % 0 %; Platelet Count 206 10^3/uL (130-400); Red Blood Cell Count 3.32 10^6/uL (4.20-5.40); White Blood Cell Count 5.7 10^3/uL (4.8-10.8)
[2023-10-06 06:32] LABS: Blood Urea Nitrogen 51 mg/dl (7-17); Calcium 8.4 mg/dl (8.4-10.2); Carbon Dioxide 33 mmol/L (22-30); Chloride 98 mmol/L (98-107); Estimated Creatinine Clearance 37 ml/min; Glucose 86 mg/dl (70-99); Potassium 3.8 mmol/L (3.5-5.1); Sodium 137 mmol/L (135-145); eGFR 35.23
[2023-10-06 07:04] LABS: Glucose - Point of Care 95 mg/dl (70-99)
[2023-10-06] MEDS: ADVAIR HFA 115/21 MCG INHALER 2 PUFF INH ×2 (07:40→19:16)
[2023-10-06] MEDS: NOVOLOG FLEXPEN-LOW RESISTANCE SC ×2 (09:00→17:27)
[2023-10-06] MEDS: APRESOLINE 50 MG PO ×2 (09:01→23:14)
[2023-10-06] MEDS: ASPIR LOW (ENTERIC COATED) 81 MG PO (09:01)
[2023-10-06] MEDS: DESENEX/MITRAZOL/ZEASORB 1 APPLIC TOPICAL ×2 (09:01→20:52)
[2023-10-06] MEDS: IMDUR (EXTENDED RELEASE) 30 MG PO (09:01)
[2023-10-06] MEDS: LASIX 80 MG IV ×2 (09:02→15:46)
[2023-10-06] MEDS: TOPROL XL 25 MG PO (09:03)
[2023-10-06] MEDS: HEPARIN 5000 UNITS SC ×2 (09:03→20:58)
[2023-10-06] MEDS: LIDOCAINE 4% PATCH 2 PATCH TOPICAL (09:04)
--- NOTE | 2023-10-06 10:47 | W.PN.HOSP.TC ---
Today's Communication/Plan
-
CW Diuresis
Assessment / Plan
Assessment / Plan
Ms. 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
recent admissions for heart failure 08/28/23-09/10/23 and 09/16/23-09/21/23 (outpatient lasix increased from 80 to 120mg daily) presents to the ER with weight gain and shortness of breath.
Acute on chronic Heart Failure mildly Reduced EF Acute Exacerbation
-weight on discharge was 111.4kg; 118kg in the ER
-Improving weight but not near her baseline -continue 80mg IV BID per cardiology;consider metolazone.
-ECHO 09/30 shows midrange EF ,diastolic dysfunction as before but slightly higher pulmonary systolic arterial pressure.
-daily weight, strict I/O, fluid restriction
-cardiology following
-Optimze diuresis and Wean O2 .
Chronic Hypoxic respiratory Failure
-patient states she has been on oxygen since got covid 2 years ago, normally wears 2 L
Eosinophilia
-unclear trigger. no e/o infection, no new meds( last new med regimen is change of Cardizem to Hydralazine and imdur in jul 2023 during her [facility] admission)
- Would repeat it in a week or two and if still remains elevated will first consider changing Hydralazine and proceed further if still elevated.
Improving on today's labs
CKD3b
-creatinine is at baseline
-monitor with diuresis
BL Left>right rotator cuff pain /decreased ROM - Non traumatic -cw symptomatic tx . Advised OP ortho follow up .
Other problems:
Essential hypertension: cont Hydralazine/BB/Imdur
PVC's: [employer] Metoprolol
DM2: SSI/accuchecks
Hyperlipidemia: cont statin
Asthma/COPD: Cont Advair
Obstructive sleep apnea
h/o right lower extremity DVT
Morbid obesity due to excess calories
DVT PPx hep subQ
FULL CODE
Anticipated Discharge: 24 - 48 hours
Subjective/Interval History
-
Date of Service: October 06, 2023
Breathing is ok
No CP
Tolerating diet
Objective Data
-
Labs:
Laboratory Results
10/06/23
05:32
WBC 5.7
Hgb 8.9 L
Hct 28.5 L
Plt Count 206
Sodium 137
Potassium 3.8
Chloride 98
Carbon Dioxide 33 H
BUN 51 H
Creatinine 1.5 H
Glucose 86
Calcium 8.4
Vital Signs:
Vital Signs
Temp Pulse Resp BP Pulse Ox
97.5 F 71 20 130/61 94
10/06/23 07:05 10/06/23 09:03 10/06/23 07:45 10/06/23 09:03 10/06/23 08:00
I&O
10/05/23 10/06/23 10/07/23
06:59 06:59 06:59
Intake Total 1176 / 1176 600 / 600
Output Total 1450 / 1450 700 / 700
Balance -274 / -274 -100 / -100
Review of Systems
-
EENT: Denies Sore Throat
Respiratory: Denies Cough
Abdomen/GI: Denies Abdominal Pain
Musculoskeletal: Reports Other (BL rotator cuff pains )
Neuro: Denies Dizzy
Physical Exam
-
HEENT: Moist Mucous Membranes
Respiratory: Clear to Auscultation
Cardiac: Regular Rhythm and S1/S2
Neuro: AO x 3
Psych: Calm; Negative Confused
Data Reviewed
-
Labs: Labs Reviewed by me
--- NOTE | 2023-10-06 11:02 | W.PN.CARDCBS ---
Today's Communication / Plan
-
Cont IV diuresis lasix 80 mg IV BID. Her exam remains difficult. She was 245 lb on d/c August 2023.
Give zaroxolyn again October 05 as she received October 04.
Previously managed with Cardizem CD for frequent, asymptomatic PVCs. During one of her recent admissions she was changed to Toprol XL 25 mg daily. Monitor for bradycardia.
For CM, previously lisinopril caused dyspnea. Cont Hydralazine 50 mg BID and could consider consider adding Imdur for afterload reduction next 24 hrs.
Impression / Plan
-
.
PCP: Cris Avilez PA-C
Paperhanger Supervisor: Dr. Ott
Impression:
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
Recent admission for acute HF 09/16/23 until 09/21/23
Recent admission for acute HF 08/28/23 until 09/10/23
Recent admission for COVID-19 treated with Paxlovid and Decadron 07/27/23 until 07/31/23
ALMA on CKD 3b
Chronic hypoxic respiratory failure on home oxygen 1-2 L via NC
Frequent PVCs and bigeminy
Asthma/COPD
Chronic Lymphedema and chronic venous stasis changes
Hypertension
HLD
DM II
MARIAMA
Peripheral Neuropathy
History of DVT
Morbid Obesity
Medication and dietary non-adherence
Echo 08/22/21:�LVEF 53%, mild LVH, Mild MR, Mild 20/10 PRECIOUS 1.7cm2, mild AI
Echo 03/24/22: Technically limited study and patient was scanned in a wheelchair. No regional wall motion abnormalities are seen. LV ejection fraction is 53% by Phan's biplane method�of discs. Mild left ventricular hypertrophy. Normal diastolic
function. Mild mitral regurgitation is seen. This may be underestimated due to acoustic shadowing. Mild aortic stenosis. Peak/mean gradients across the aortic valve 20/10 mmHg. Using an LVOT diameter�of 2.0 cm the aortic valve by the Continuity
equation is calculated at 1.7 cm2. Mild aortic regurgitation.
Echo 12/18/2022:�EF 40-45%, global hypokinesis, moderate cLVH, stage II diastolic dysfunction, mild MS, mild MR, severely dilated LA, moderate with peak/mean gradients 45/20 mmHg, PRECIOUS 1.2 cm2, mild AR, mild TR, estimated PAP 42 mmHg,
Echo 03/16/2023: EF 45-50%, moderate cLVH, global hypokinesis, mild MR, mild to moderate with peak/mean gradients 21/12 mmHg, mild TR, estimated PAP 30-35 mmHg
ECHO 10/01/23: EF 45 to 50%, global hypokinesis, moderate to severe concentric LVH, stage II diastolic dysfunction, mildly dilated RV, mitral sclerosis, mild to moderate , peak/mean gradients 26/18 mmHg, mild AR, mild to moderate TR, PAP 60 to 65
mmHg
Plan:
Cont IV diuresis lasix 80 mg IV BID. Her exam remains difficult. She was 245 lb on d/c August 2023.
Give zaroxolyn again October 05 as she received October 04.
Previously managed with Cardizem CD for frequent, asymptomatic PVCs. During one of her recent admissions she was changed to Toprol XL 25 mg daily. Monitor for bradycardia.
Not candidate and previously declined SGLT-2 due to risk of infection and she is incontinent.
For CM, previously lisinopril caused dyspnea. Cont Hydralazine 50 mg BID and could consider consider adding Imdur for afterload reduction next 24 hrs.
Echo remains overall stable.
It has been discussed with patient that recurrent HF admissions lends to a poor prognosis. Patient says she is motivated to complete rehab and return home. She says family is not bringing in outside food and that she is eating only the food served
to her at rehab.
Discussed with primary service.
PREADMIT DATA:
-Patient came to [facility] early this morning with increased SOB and is now admitted with acute HF so cardiology has been consulted. Patient was admitted with COVID 07/27/23 until 07/31/23. Then admitted for acute HF 08/28/23 until 09/10/23 and at time of
discharge she was sent to rehab for this first time ever as she has historically refused VN or rehab suggestions. Patient was then sent from rehab to for admission for acute HF again 09/16/23 until 09/21/23. During her last admission for was SOB
and her oxygen was reportedly not working at rehab, but she was still diuresed for a discharge weight of 245 lbs. Patient was diuresed with Lasix 80 mg IV daily last admission, but her previous admission at the beginning of August she was given
occasional doses of metolazone that admission and eventually developed ALMA. Patient says that at rehab she had ham this past Thursday for , but otherwise she says she is eating smaller portions and that her family is not bringing her any food.
She feels that she is not urinating as much with her regular Lasix dosing.
Progress Note - Paperhanger Supervisor
Subjective
Date of Service: October 06, 2023
Pt seen and examined and feels improved.
Objective
Labs:
10/06/23 05:32
10/06/23 05:32
Labs
Hgb 8.9 g/dL (12.0-16.0) L 10/06/23 05:32
Hct 28.5 % (37.0-47.0) L 10/06/23 05:32
Plt Count 206 10^3/uL (130-400) 10/06/23 05:32
Sodium 137 mmol/L (135-145) 10/06/23 05:32
Potassium 3.8 mmol/L (3.5-5.1) 10/06/23 05:32
BUN 51 mg/dl (7-17) H 10/06/23 05:32
Creatinine 1.5 mg/dL (0.6-1.0) H 10/06/23 05:32
Glucose 86 mg/dl (70-99) 10/06/23 05:32
Vital Signs and I&O:
Vital Signs
Temp Pulse Resp BP Pulse Ox
97.5 F 71 20 130/61 94
10/06/23 07:05 10/06/23 09:03 10/06/23 07:45 10/06/23 09:03 10/06/23 08:00
Vital Signs
Temp Pulse Resp BP Pulse Ox
97.5 F 71 20 130/61 94
10/06/23 07:05 10/06/23 09:03 10/06/23 07:45 10/06/23 09:03 10/06/23 08:00
Intake & Output
10/04/23 10/05/23 10/06/23 10/07/23
06:59 06:59 06:59 06:59
Intake Total 900 / 900 1176 / 1176 600 / 600
Output Total 1150 / 1150 1450 / 1450 700 / 700
Balance -250 / -250 -274 / -274 -100 / -100
Physical Exam
Physical Exam
General: No acute distress, AAOX3
Neck: Negative JVD
Heart: Regular, Negative S3 positive S1/S2, Negative S4, No murmur
Lungs: CTA b/l, negative wheezes/rales/rhonchi
Abd: Positive BS, NT/ND, neg rebound/rigidity/guarding
Ext: Negative cyanosis/clubbing. +2 b/l edema, chronic lymphedema
Neuro: nonfocal
[2023-10-06] MEDS: ZAROXOLYN 5 MG PO (11:04)
[2023-10-06] MEDS: TYLENOL 650 MG PO ×2 (11:07→23:16)
[2023-10-06 11:44] LABS: Glucose - Point of Care 160 mg/dl (70-99)
[2023-10-06] MEDS: NOVOLOG FLEXPEN-LOW RESISTANCE 1 UNITS SC (11:54)
--- NOTE | 2023-10-06 14:18 | CM ---
Patient seen bedside, discussed SNF inquiring how long patient was at previous SNF, [facility] Patient reports about 2 weeks. Patient confirms her goal upon discharge from SNF is to return home. CM will continue to follow for discharge planning
needs.
Plan; SNF pending accepting facility.
[2023-10-06 16:51] LABS: Glucose - Point of Care 118 mg/dl (70-99)
[2023-10-06] MEDS: LIPITOR 20 MG PO (20:58)
[2023-10-06 21:55] LABS: Glucose - Point of Care 106 mg/dl (70-99)
[2023-10-07] VITALS (7 sets, daily range): BP systolic 114–175; BP diastolic 53–99; BMI 44.0
[2023-10-07 07:29] LABS: Glucose - Point of Care 102 mg/dl (70-99)
[2023-10-07] MEDS: ADVAIR HFA 115/21 MCG INHALER 2 PUFF INH ×2 (07:35→19:22)
[2023-10-07 08:47] LABS: Blood Urea Nitrogen 53 mg/dl (7-17); Calcium 8.5 mg/dl (8.4-10.2); Carbon Dioxide 33 mmol/L (22-30); Chloride 96 mmol/L (98-107); Estimated Creatinine Clearance 39 ml/min; Glucose 86 mg/dl (70-99); Potassium 3.6 mmol/L (3.5-5.1); Sodium 137 mmol/L (135-145); eGFR 38.03
[2023-10-07] MEDS: NOVOLOG FLEXPEN-LOW RESISTANCE SC ×2 (08:59→17:21)
[2023-10-07] MEDS: APRESOLINE 50 MG PO ×2 (08:59→20:39)
[2023-10-07] MEDS: HEPARIN 5000 UNITS SC ×2 (09:00→20:39)
[2023-10-07] MEDS: LASIX 80 MG IV ×2 (09:00→16:42)
[2023-10-07] MEDS: LIDOCAINE 4% PATCH 2 PATCH TOPICAL (09:01)
[2023-10-07] MEDS: ASPIR LOW (ENTERIC COATED) 81 MG PO (09:01)
[2023-10-07] MEDS: IMDUR (EXTENDED RELEASE) 30 MG PO (09:01)
[2023-10-07] MEDS: TOPROL XL 25 MG PO ×2 (09:01)
[2023-10-07] MEDS: TYLENOL 650 MG PO ×2 (09:15→22:31)
[2023-10-07] MEDS: DESENEX/MITRAZOL/ZEASORB 1 APPLIC TOPICAL ×2 (09:17→20:25)
--- NOTE | 2023-10-07 09:54 | CM ---
Plan: discharge to SNF when medically stable; accepted @ [facility]
CM will continue to follow
--- NOTE | 2023-10-07 10:19 | W.PN.CARDCBS ---
Today's Communication / Plan
-
Cont IV lasix
Additional metolazone dose today
Follow daily weights and renal function going forward
Impression / Plan
-
.
PCP: Cris Avilez PA-C
Field Clerk: Dr. Ott
Impression:
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
Recent admission for acute HF 09/16/23 until 09/21/23
Recent admission for acute HF 08/28/23 until 09/10/23
Recent admission for COVID-19 treated with Paxlovid and Decadron 07/27/23 until 07/31/23
ALMA on CKD 3b
Chronic hypoxic respiratory failure on home oxygen 1-2 L via NC
Frequent PVCs and bigeminy
Asthma/COPD
Chronic Lymphedema and chronic venous stasis changes
Hypertension
HLD
DM II
MARIAMA
Peripheral Neuropathy
History of DVT
Morbid Obesity
Medication and dietary non-adherence
Echo 08/22/21:�LVEF 53%, mild LVH, Mild MR, Mild 20/10 PRECIOUS 1.7cm2, mild AI
Echo 03/24/22: Technically limited study and patient was scanned in a wheelchair. No regional wall motion abnormalities are seen. LV ejection fraction is 53% by Phan's biplane method�of discs. Mild left ventricular hypertrophy. Normal diastolic
function. Mild mitral regurgitation is seen. This may be underestimated due to acoustic shadowing. Mild aortic stenosis. Peak/mean gradients across the aortic valve 20/10 mmHg. Using an LVOT diameter�of 2.0 cm the aortic valve by the Continuity
equation is calculated at 1.7 cm2. Mild aortic regurgitation.
Echo 12/18/2022:�EF 40-45%, global hypokinesis, moderate cLVH, stage II diastolic dysfunction, mild MS, mild MR, severely dilated LA, moderate with peak/mean gradients 45/20 mmHg, PRECIOUS 1.2 cm2, mild AR, mild TR, estimated PAP 42 mmHg,
Echo 03/16/2023: EF 45-50%, moderate cLVH, global hypokinesis, mild MR, mild to moderate with peak/mean gradients 21/12 mmHg, mild TR, estimated PAP 30-35 mmHg
ECHO 10/01/23: EF 45 to 50%, global hypokinesis, moderate to severe concentric LVH, stage II diastolic dysfunction, mildly dilated RV, mitral sclerosis, mild to moderate , peak/mean gradients 26/18 mmHg, mild AR, mild to moderate TR, PAP 60 to 65
mmHg
Plan:
Cont IV diuresis lasix 80 mg IV BID. Her exam remains difficult. She was 245 lb on d/c August 2023 - approaching that weight with diuresis.
Renal function is stable
Would give additional zaroxolyn today
Previously managed with Cardizem CD for frequent, asymptomatic PVCs.
During one of her recent admissions she was changed to Toprol XL 25 mg daily. Monitor for bradycardia.
Not candidate and previously declined SGLT-2 due to risk of infection and she is incontinent.
For CM, previously lisinopril caused dyspnea. Cont Hydralazine/ Imdur for afterload reduction.
Echo remains overall stable.
It has been discussed with patient that recurrent HF admissions lends to a poor prognosis. Patient says she is motivated to complete rehab and return home. She says family is not bringing in outside food and that she is eating only the food served
to her at rehab.
PREADMIT DATA:
-Patient came to [facility] early this morning with increased SOB and is now admitted with acute HF so cardiology has been consulted. Patient was admitted with COVID 07/27/23 until 07/31/23. Then admitted for acute HF 08/28/23 until 09/10/23 and at time of
discharge she was sent to rehab for this first time ever as she has historically refused VN or rehab suggestions. Patient was then sent from rehab to for admission for acute HF again 09/16/23 until 09/21/23. During her last admission for was SOB
and her oxygen was reportedly not working at rehab, but she was still diuresed for a discharge weight of 245 lbs. Patient was diuresed with Lasix 80 mg IV daily last admission, but her previous admission at the beginning of August she was given
occasional doses of metolazone that admission and eventually developed ALMA. Patient says that at rehab she had ham this past Thursday for [place], but otherwise she says she is eating smaller portions and that her family is not bringing her any food.
She feels that she is not urinating as much with her regular Lasix dosing.
Progress Note - Field Clerk
Subjective
Date of Service: October 07, 2023
NAOE. OOB to chair. Resting comfortably. Feels her breathing and edema is slowly improving.
Objective
Labs:
10/06/23 05:32
10/07/23 07:17
Labs
Hgb 8.9 g/dL (12.0-16.0) L 10/06/23 05:32
Hct 28.5 % (37.0-47.0) L 10/06/23 05:32
Plt Count 206 10^3/uL (130-400) 10/06/23 05:32
Sodium 137 mmol/L (135-145) 10/07/23 07:17
Potassium 3.6 mmol/L (3.5-5.1) 10/07/23 07:17
BUN 53 mg/dl (7-17) H 10/07/23 07:17
Creatinine 1.4 mg/dL (0.6-1.0) H 10/07/23 07:17
Glucose 86 mg/dl (70-99) 10/07/23 07:17
Vital Signs and I&O:
Vital Signs
Temp Pulse Resp BP Pulse Ox
97.4 F 65 18 147/58 95
10/07/23 07:30 10/07/23 09:01 10/07/23 07:36 10/07/23 09:01 10/07/23 07:36
Vital Signs
Temp Pulse Resp BP Pulse Ox
97.4 F 65 18 147/58 95
10/07/23 07:30 10/07/23 09:01 10/07/23 07:36 10/07/23 09:01 10/07/23 07:36
Intake & Output
10/05/23 10/06/23 10/07/23 10/08/23
06:59 06:59 06:59 06:59
Intake Total 1176 / 1176 600 / 600 840 / 840 480 / 480
Output Total 1450 / 1450 700 / 700 325 / 325
Balance -274 / -274 -100 / -100 515 / 515 480 / 480
Physical Exam
Physical Exam
Gen: NAD, AAOx3, OOB to chair
HEENT: NC/AT, sclera anicteric
Neck: Difficult to assess JVD
CV: RRR, NL s1/s2
Lungs: No increased WOB on 4L NC
Abd: S/ND
Ext: Non-pitting LE edema with overlying brawny skin changes
Skin: Warm, dry
Neuro: Non-focal
[2023-10-07] MEDS: ZAROXOLYN 5 MG PO (11:09)
[2023-10-07] MEDS: NOVOLOG FLEXPEN-LOW RESISTANCE 2 UNITS SC (12:05)
[2023-10-07 12:34] LABS: Glucose - Point of Care 238 mg/dl (70-99)
--- NOTE | 2023-10-07 15:55 | W.PN.HOSP.TC ---
Today's Communication/Plan
-
All discussed with the patient
Discussed with the nurse
Assessment / Plan
Assessment / Plan
Physical exam:
General: Awake, alert and oriented x3, pale looking not in distress and holds appropriate conversation.
HEENT: No active discharge, ecchymosis or bruising, moist lips, tongue and mucous membrane.
Eyes: No discharge or red conjunctiva, no nystagmus, pupils are reactive and equal
Neck:Supple, no JVD no bruit no goiter.
Respiratory: Normal AP contour and diameter, normal chest wall movement, normal respiratory effort, no respiratory distress,
Lungs: Good air entry bilaterally, no wheezing or rhonchi, no rales or crackles
Heart: S1, S2 regular, normal rate, no added sound. Mild lower extremities edema
Gastrointestinal: Positive bowel sounds, soft, nontender, no guarding or rigidity or organomegaly
Musculoskeletal: , no chest wall abnormality or tenderness. All joints and extremities have good range of motion, no muscle tenderness or any joint swelling or tenderness.
Extremities: pitting edema, good peripheral pulses, good range of motion
Skin: Warm and dry, no ulceration, normal color.
Neurological: Awake, alert and oriented x3, no facial droop, speech clear and comprehensive, good muscle tone,
Psychiatric: Normal mood, normal thought and judgment, normal affect,
Ms. 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
recent admissions for heart failure 08/28/23-09/10/23 and 09/16/23-09/21/23 (outpatient lasix increased from 80 to 120mg daily) presents to the ER with weight gain and shortness of breath.
Acute on chronic Heart Failure mildly Reduced EF Acute Exacerbation
-weight on discharge was 111.4kg; 118kg in the ER
-IV Lasix 80 mg twice daily with metolazone
-ECHO 09/30 shows midrange EF ,diastolic dysfunction as before but slightly higher pulmonary arterial pressure.
-daily weight, strict I/O, fluid restriction
-cardiology following
-Optimze diuresis and Wean O2 .
-Recheck labs
-Imdur added by cardiology
Hydralazine
Toprol-XL
Chronic Hypoxic respiratory Failure
-patient states she has been on oxygen since got covid 2 years ago, normally wears 2 L
Eosinophilia
-unclear trigger. no e/o infection, no new meds( last new med regimen is change of Cardizem to Hydralazine and imdur in jul 2023 during her COVID admission)
- Would repeat it in a week or two and if still remains elevated will first consider changing Hydralazine and proceed further if still elevated.
Improving on today's labs
CKD3b
-creatinine is at baseline
-monitor with diuresis
-Recheck labs
BL Left>right rotator cuff pain /decreased ROM - Non traumatic -cw symptomatic tx . Advised OP ortho follow up .
Other problems:
Essential hypertension: cont Hydralazine/BB/Imdur
PVC's: [employer] Metoprolol
DM2: SSI/accuchecks
Hyperlipidemia: cont statin
Asthma/COPD: Cont Advair
Obstructive sleep apnea
h/o right lower extremity DVT
Morbid obesity due to excess calories
DVT PPx hep subQ
FULL CODE
Anticipated Discharge: > 48 hours
Subjective/Interval History
-
Date of Service: October 07, 2023
Seen and examined, sitting on the bed, awake, alert and oriented x 3, admits she feels better during rest but still have exertional shortness of breath, still on IV diuresis, denies chest pain or nausea or vomiting or fever or chill.
Objective Data
-
Labs:
Laboratory Results
04/10/24
07:17
Sodium 137
Potassium 3.6
Chloride 96 L
Carbon Dioxide 33 H
BUN 53 H
Creatinine 1.4 H
Glucose 86
Calcium 8.5
Vital Signs:
Vital Signs
Temp Pulse Resp BP Pulse Ox
97.4 F 65 20 140/68 94
10/07/23 11:00 10/07/23 11:09 10/07/23 11:00 10/07/23 11:09 10/07/23 11:00
I&O
10/06/23 10/07/23 10/08/23
07:59 07:59 07:59
Intake Total 600 / 600 1320 / 1320
Output Total 700 / 700 325 / 325
Balance -100 / -100 995 / 995
Review of Systems
-
All other systems: Reviewed and negative
[2023-10-07 17:13] LABS: Glucose - Point of Care 144 mg/dl (70-99)
[2023-10-07] MEDS: LIPITOR 20 MG PO (20:39)
[2023-10-07 21:14] LABS: Glucose - Point of Care 138 mg/dl (70-99)
[2023-10-08] VITALS (7 sets, daily range): BP systolic 105–133; BP diastolic 46–72; PULSE 61; O2SAT 94; BMI 43.6
[2023-10-08 06:33] LABS: Blood Urea Nitrogen 58 mg/dl (7-17); Calcium 8.2 mg/dl (8.4-10.2); Carbon Dioxide 34 mmol/L (22-30); Chloride 97 mmol/L (98-107); Estimated Creatinine Clearance 34 ml/min; Glucose 84 mg/dl (70-99); Magnesium 2.4 mg/dl (1.6-2.3); Potassium 3.5 mmol/L (3.5-5.1); Sodium 136 mmol/L (135-145)
[2023-10-08 07:09] LABS: Glucose - Point of Care 88 mg/dl (70-99)
[2023-10-08] MEDS: ADVAIR HFA 115/21 MCG INHALER 2 PUFF INH ×2 (07:27→19:23)
[2023-10-08] MEDS: NOVOLOG FLEXPEN-LOW RESISTANCE SC ×2 (08:59→16:58)
[2023-10-08] MEDS: TOPROL XL 25 MG PO (09:00)
[2023-10-08] MEDS: IMDUR (EXTENDED RELEASE) 30 MG PO (09:00)
[2023-10-08] MEDS: HEPARIN 5000 UNITS SC ×2 (09:02→21:29)
[2023-10-08] MEDS: APRESOLINE 50 MG PO ×2 (09:02→21:29)
[2023-10-08] MEDS: DESENEX/MITRAZOL/ZEASORB 1 APPLIC TOPICAL ×2 (09:18→21:28)
[2023-10-08] MEDS: LASIX 80 MG IV ×2 (09:19→16:44)
[2023-10-08] MEDS: KCL 40 MEQ PO (10:14)
[2023-10-08] MEDS: ASPIR LOW (ENTERIC COATED) 81 MG PO (10:14)
[2023-10-08] MEDS: LIDOCAINE 4% PATCH 2 PATCH TOPICAL (10:14)
--- NOTE | 2023-10-08 10:23 | W.PN.CARDCBS ---
Today's Communication / Plan
-
Switch to oral furosemide in a.m.
Discharge planning
Impression / Plan
-
.
PCP: Cris Avilez PA-C
Hatchery Man: Dr. Ott
Impression:
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
Recent admission for acute HF 09/16/23 until 09/21/23
Recent admission for acute HF 08/28/23 until 09/10/23
Recent admission for COVID-19 treated with Paxlovid and Decadron 07/27/23 until 07/31/23
ALMA on CKD 3b
Chronic hypoxic respiratory failure on home oxygen 1-2 L via NC
Frequent PVCs and bigeminy
Asthma/COPD
Chronic Lymphedema and chronic venous stasis changes
Hypertension
HLD
DM II
MARIAMA
Peripheral Neuropathy
History of DVT
Morbid Obesity
Medication and dietary non-adherence
Echo 08/22/21:�LVEF 53%, mild LVH, Mild MR, Mild 20/10 PRECIOUS 1.7cm2, mild AI
Echo 03/24/22: Technically limited study and patient was scanned in a wheelchair. No regional wall motion abnormalities are seen. LV ejection fraction is 53% by Phan's biplane method�of discs. Mild left ventricular hypertrophy. Normal diastolic
function. Mild mitral regurgitation is seen. This may be underestimated due to acoustic shadowing. Mild aortic stenosis. Peak/mean gradients across the aortic valve 20/10 mmHg. Using an LVOT diameter�of 2.0 cm the aortic valve by the Continuity
equation is calculated at 1.7 cm2. Mild aortic regurgitation.
Echo 12/18/2022:�EF 40-45%, global hypokinesis, moderate cLVH, stage II diastolic dysfunction, mild MS, mild MR, severely dilated LA, moderate with peak/mean gradients 45/20 mmHg, PRECIOUS 1.2 cm2, mild AR, mild TR, estimated PAP 42 mmHg,
Echo 03/16/2023: EF 45-50%, moderate cLVH, global hypokinesis, mild MR, mild to moderate with peak/mean gradients 21/12 mmHg, mild TR, estimated PAP 30-35 mmHg
ECHO 10/01/23: EF 45 to 50%, global hypokinesis, moderate to severe concentric LVH, stage II diastolic dysfunction, mildly dilated RV, mitral sclerosis, mild to moderate , peak/mean gradients 26/18 mmHg, mild AR, mild to moderate TR, PAP 60 to 65
mmHg
Plan:
She is probably close to dry weight. Creatinine is 1.6 - baseline creatinine is 1.2. Will transition furosemide in a.m. to 120 mg in the a.m. and 80 mg in the p.m. Given rise in creatinine, will not give additional metolazone today.
No SGLT2 inhibitor related to patient preference and incontinence.
Blood pressure and heart rate are reasonable.
Avoid spironolactone given CKD.
Her EF is stable. Her aortic stenosis disease is not severe.
Discharge planning.
It has been discussed with patient that recurrent HF admissions lends to a poor prognosis. Patient says she is motivated to complete rehab and return home. She says family is not bringing in outside food and that she is eating only the food served
to her at rehab.
PREADMIT DATA:
-Patient came to [facility] early this morning with increased SOB and is now admitted with acute HF so cardiology has been consulted. Patient was admitted with COVID 07/27/23 until 07/31/23. Then admitted for acute HF 08/28/23 until 09/10/23 and at time of
discharge she was sent to rehab for this first time ever as she has historically refused VN or rehab suggestions. Patient was then sent from rehab to for admission for acute HF again 09/16/23 until 09/21/23. During her last admission for was SOB
and her oxygen was reportedly not working at rehab, but she was still diuresed for a discharge weight of 245 lbs. Patient was diuresed with Lasix 80 mg IV daily last admission, but her previous admission at the beginning of August she was given
occasional doses of metolazone that admission and eventually developed ALMA. Patient says that at rehab she had ham this past Thursday for Cally, but otherwise she says she is eating smaller portions and that her family is not bringing her any food.
She feels that she is not urinating as much with her regular Lasix dosing.
Progress Note - Hatchery Man
Subjective
Date of Service: October 08, 2023:
She feels better and thinks she is close to dry weight.
Allergies: Albuterol, ceftriaxone, Levaquin, lisinopril, nonsteroidals
Outpatient medications: Aspirin 81 mg a day, atorvastatin 20 at bedtime, furosemide 120 mg a day, hydralazine 50 mg twice daily, isosorbide mononitrate 30 mg a day, Xopenex, Milk of Magnesia, metoprolol ER 25 a day, potassium 20 mill equivalents
daily, Starlix
Current meds: Aspirin 81 mg a day, atorvastatin 20 mg at bedtime, hydralazine 50 twice daily, isosorbide mononitrate 30 mg a day, metoprolol ER 25 a day, subcu heparin, furosemide 80 mg IV twice daily, insulin, Advair,
PMH/PSH/FH/SH: Reviewed
Review of systems negative except as above
Sodium 136, potassium 3.5, BUN and creatinine 58 and 1.6, creatinine had been 1.4/1.5, bicarbonate 34. proBNP was 14,700 on the fourth and 17,100 on 15 September, was 5100 in November 2022 and 716 in July 21, hemoglobin was 8.9 2 days ago
Objective
Labs:
10/06/23 05:32
10/08/23 05:28
Labs
Hgb 8.9 g/dL (12.0-16.0) L 10/06/23 05:32
Hct 28.5 % (37.0-47.0) L 10/06/23 05:32
Plt Count 206 10^3/uL (130-400) 10/06/23 05:32
Sodium 136 mmol/L (135-145) 10/08/23 05:28
Potassium 3.5 mmol/L (3.5-5.1) 10/08/23 05:28
BUN 58 mg/dl (7-17) H 10/08/23 05:28
Creatinine 1.6 mg/dL (0.6-1.0) H 10/08/23 05:28
Glucose 84 mg/dl (70-99) 10/08/23 05:28
Vital Signs and I&O:
Vital Signs
Temp Pulse Resp BP Pulse Ox
36.4 C 52 18 123/51 98
10/08/23 07:50 10/08/23 09:19 10/08/23 07:50 10/08/23 09:19 10/08/23 07:50
Vital Signs
Temp Pulse Resp BP Pulse Ox
36.4 C 52 18 123/51 98
10/08/23 07:50 10/08/23 09:19 10/08/23 07:50 10/08/23 09:19 10/08/23 07:50
Intake & Output
10/06/23 10/07/23 10/08/23 10/09/23
07:59 07:59 07:59 07:59
Intake Total 600 / 600 1320 / 1320 600 / 600
Output Total 700 / 700 325 / 325 100 / 100
Balance -100 / -100 995 / 995 500 / 500
Physical Exam
Physical Exam
No acute distress, vital signs as noted, weight is down from peak weight of 120 kg
Head neck exam unremarkable, lungs are clear, murmur, probably regular rate and rhythm, JVD hard to assess, massive edema right greater than left with chronic venous changes, neuro nonfocal
[2023-10-08 11:06] LABS: Glucose - Point of Care 204 mg/dl (70-99)
[2023-10-08] MEDS: NOVOLOG FLEXPEN-LOW RESISTANCE 2 UNITS SC (12:02)
--- NOTE | 2023-10-08 12:29 | CM ---
Met with patient at bedside to discuss discharge plan to SNF
Explained that referrals to [facility] were accepted
Patient asked that referral be sent to [facility]; referral sent via [facility]
CM will continue to follow and coordinate discharge plan
[2023-10-08] MEDS: KCL 20 MEQ PO (13:35)
--- NOTE | 2023-10-08 14:31 | W.PN.HOSP.TC ---
Today's Communication/Plan
-
All discussed with the patient
Discussed with the nurse
Assessment / Plan
Assessment / Plan
Physical exam:
General: Awake, alert and oriented x3, pale looking not in distress and holds appropriate conversation.
HEENT: No active discharge, ecchymosis or bruising, moist lips, tongue and mucous membrane.
Eyes: No discharge or red conjunctiva, no nystagmus, pupils are reactive and equal
Neck:Supple, no JVD no bruit no goiter.
Respiratory: Normal AP contour and diameter, normal chest wall movement, normal respiratory effort, no respiratory distress,
Lungs: Good air entry bilaterally, no wheezing or rhonchi, no rales or crackles
Heart: S1, S2 regular, normal rate, no added sound. Mild lower extremities edema
Gastrointestinal: Positive bowel sounds, soft, nontender, no guarding or rigidity or organomegaly
Musculoskeletal: , no chest wall abnormality or tenderness. All joints and extremities have good range of motion, no muscle tenderness or any joint swelling or tenderness.
Extremities: pitting edema, good peripheral pulses, good range of motion
Skin: Warm and dry, no ulceration, normal color.
Ms. 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
recent admissions for heart failure 08/28/23-09/10/23 and 09/16/23-09/21/23 (outpatient lasix increased from 80 to 120mg daily) presents to the ER with weight gain and shortness of breath.
Acute on chronic Heart Failure mildly Reduced EF Acute Exacerbation
-weight is today is 111.64 kg
-IV Lasix 80 mg twice daily and cardiology made adjustment today's evening hours of the Lasix and last dose
Changed to orally 120 the morning and 80 in the evening, no metolazone today for worsening renal function. Cardiology
-ECHO 09/30 shows midrange EF ,diastolic dysfunction as before but slightly higher pulmonary arterial pressure.
-daily weight, strict I/O, fluid restriction
-cardiology following
-Recheck labs
-Imdur added by cardiology
Hydralazine
Toprol-XL
Chronic Hypoxic respiratory Failure
-patient states she has been on oxygen since got covid 2 years ago, normally wears 2 L
Eosinophilia
-unclear trigger. no e/o infection, no new meds( last new med regimen is change of Cardizem to Hydralazine and imdur in jul 2023 during her COVID admission)
- Would repeat it in a week or two and if still remains elevated will first consider changing Hydralazine and proceed further if still elevated.
Improving on today's labs
CKD3b
-creatinine is at baseline
-monitor with diuresis
-Recheck labs
BL Left>right rotator cuff pain /decreased ROM - Non traumatic -cw symptomatic tx . Advised OP ortho follow up .
Other problems:
Essential hypertension: cont Hydralazine/BB/Imdur
PVC's: PIPE CLEANER Metoprolol
DM2: SSI/accuchecks
Hyperlipidemia: cont statin
Asthma/COPD: Cont Advair
Obstructive sleep apnea
h/o right lower extremity DVT
Morbid obesity due to excess calories
DVT PPx hep subQ
FULL CODE
Still on IV diuresis today and need to be monitored off IV Lasix and still symptomatic, not ready for discharge
Better PT OT SNF recommended
Anticipated Discharge: 24 - 48 hours
Subjective/Interval History
-
Date of Service: October 08, 2023
Seen and examined, awake and alert, overall feels better but still short of breath with exertion even few steps, still on IV diuresis. Urinating well.
Denies any chest pain or nausea or vomiting or fever or chill.
Objective Data
-
Labs:
Laboratory Results
10/08/23
05:28
Sodium 136
Potassium 3.5
Chloride 97 L
Carbon Dioxide 34 H
BUN 58 H
Creatinine 1.6 H
Glucose 84
Calcium 8.2 L
Vital Signs:
Vital Signs
Temp Pulse Resp BP Pulse Ox
97.5 F 69 17 115/46 98
10/08/23 11:37 10/08/23 11:37 10/08/23 11:37 10/08/23 11:37 10/08/23 11:37
I&O
10/07/23 10/08/23 10/09/23
07:59 07:59 07:59
Intake Total 1320 / 1320 600 / 600
Output Total 325 / 325 100 / 100
Balance 995 / 995 500 / 500
Review of Systems
-
All other systems: Reviewed and negative
[2023-10-08 16:45] LABS: Glucose - Point of Care 129 mg/dl (70-99)
--- NOTE | 2023-10-08 19:22 | PTCARENOTE ---
3249 patient had a 17 beat run of V tach. Pt remained asymptomatic. Dr. De Leon made aware. No treatment required. Cont to assess patient status.
[2023-10-08 21:23] LABS: Glucose - Point of Care 129 mg/dl (70-99)
[2023-10-08] MEDS: LIPITOR 20 MG PO (21:29)
[2023-10-08] MEDS: TYLENOL 650 MG PO (23:58)
[2023-10-09 03:49] VITALS: BP 91/46
[2023-10-09 06:00] VITALS: BMI 44.0
[2023-10-09] MEDS: ADVAIR HFA 115/21 MCG INHALER 2 PUFF INH ×2 (07:38→19:48)
[2023-10-09 08:03] LABS: Glucose - Point of Care 95 mg/dl (70-99)
[2023-10-09 08:10] VITALS: BP 128/59
[2023-10-09] MEDS: NOVOLOG FLEXPEN-LOW RESISTANCE SC ×2 (08:15→16:45)
[2023-10-09 08:34] LABS: Blood Urea Nitrogen 59 mg/dl (7-17); Calcium 8.4 mg/dl (8.4-10.2); Carbon Dioxide 30 mmol/L (22-30); Chloride 97 mmol/L (98-107); Estimated Creatinine Clearance 42 ml/min; Glucose 84 mg/dl (70-99); Magnesium 2.3 mg/dl (1.6-2.3); Potassium 3.9 mmol/L (3.5-5.1); Sodium 135 mmol/L (135-145); eGFR 41.57
[2023-10-09] MEDS: DESENEX/MITRAZOL/ZEASORB 1 APPLIC TOPICAL ×2 (09:30→20:08)
[2023-10-09] MEDS: APRESOLINE 50 MG PO ×2 (09:31→20:07)
[2023-10-09] MEDS: LASIX 120 MG PO (09:31)
[2023-10-09] MEDS: IMDUR (EXTENDED RELEASE) 30 MG PO (09:32)
[2023-10-09] MEDS: ASPIR LOW (ENTERIC COATED) 81 MG PO (09:32)
[2023-10-09] MEDS: KCL 20 MEQ PO (09:32)
[2023-10-09] MEDS: TOPROL XL 25 MG PO (09:34)
[2023-10-09] MEDS: HEPARIN 5000 UNITS SC ×2 (09:35→20:08)
[2023-10-09] MEDS: LIDOCAINE 4% PATCH 2 PATCH TOPICAL (11:21)
--- NOTE | 2023-10-09 11:36 | W.PN.CARDCBS ---
Today's Communication / Plan
-
Creatinine is improved and down to 1.3. Would continue Lasix 120 mg in the a.m. and 80 mg in the p.m.
Stable for discharge from cardiac standpoint.
Will sign off. Call with questions. Will arrange follow-up
Impression / Plan
-
.
PCP: Cris Avilze PA-C
Crop Duster Helper: Dr. Ott
Impression:
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
Recent admission for acute HF 09/16/23 until 09/21/23
Recent admission for acute HF 08/28/23 until 09/10/23
Recent admission for COVID-19 treated with Paxlovid and Decadron 07/27/23 until 07/31/23
ALMA on CKD 3b
Chronic hypoxic respiratory failure on home oxygen 1-2 L via NC
Frequent PVCs and bigeminy
Asthma/COPD
Chronic Lymphedema and chronic venous stasis changes
Hypertension
HLD
DM II
MARIAMA
Peripheral Neuropathy
History of DVT
Morbid Obesity
Medication and dietary non-adherence
Echo 08/22/21:�LVEF 53%, mild LVH, Mild MR, Mild 20/10 PRECIOUS 1.7cm2, mild AI
Echo 03/24/22: Technically limited study and patient was scanned in a wheelchair. No regional wall motion abnormalities are seen. LV ejection fraction is 53% by Phan's biplane method�of discs. Mild left ventricular hypertrophy. Normal diastolic
function. Mild mitral regurgitation is seen. This may be underestimated due to acoustic shadowing. Mild aortic stenosis. Peak/mean gradients across the aortic valve 20/10 mmHg. Using an LVOT diameter�of 2.0 cm the aortic valve by the Continuity
equation is calculated at 1.7 cm2. Mild aortic regurgitation.
Echo 12/18/2022:�EF 40-45%, global hypokinesis, moderate cLVH, stage II diastolic dysfunction, mild MS, mild MR, severely dilated LA, moderate with peak/mean gradients 45/20 mmHg, PRECIOUS 1.2 cm2, mild AR, mild TR, estimated PAP 42 mmHg,
Echo 03/16/2023: EF 45-50%, moderate cLVH, global hypokinesis, mild MR, mild to moderate with peak/mean gradients 21/12 mmHg, mild TR, estimated PAP 30-35 mmHg
ECHO 10/01/23: EF 45 to 50%, global hypokinesis, moderate to severe concentric LVH, stage II diastolic dysfunction, mildly dilated RV, mitral sclerosis, mild to moderate , peak/mean gradients 26/18 mmHg, mild AR, mild to moderate TR, PAP 60 to 65
mmHg
Plan:
Creatinine is improved and down to 1.3. Weight is overall stable and likely at her dry weight. Continue furosemide 120 mg in the a.m. and 80 mg in the p.m.
No SGLT2 inhibitor related to patient preference and incontinence.
Blood pressure and heart rate are reasonable. Continue Imdur, hydralazine, and metoprolol.
Avoid spironolactone given CKD.
Her EF is stable. Her aortic stenosis disease is not severe.
Stable for discharge from cardiac standpoint.
It has been discussed with patient that recurrent HF admissions lends to a poor prognosis. Patient says she is motivated to complete rehab and return home. She says family is not bringing in outside food and that she is eating only the food served
to her at rehab.
PREADMIT DATA:
-Patient came to [facility] early this morning with increased SOB and is now admitted with acute HF so cardiology has been consulted. Patient was admitted with COVID 07/27/23 until 07/31/23. Then admitted for acute HF 08/28/23 until 09/10/23 and at time of
discharge she was sent to rehab for this first time ever as she has historically refused VN or rehab suggestions. Patient was then sent from rehab to for admission for acute HF again 09/16/23 until 09/21/23. During her last admission for was SOB
and her oxygen was reportedly not working at rehab, but she was still diuresed for a discharge weight of 245 lbs. Patient was diuresed with Lasix 80 mg IV daily last admission, but her previous admission at the beginning of August she was given
occasional doses of metolazone that admission and eventually developed ALMA. Patient says that at rehab she had ham this past Thursday for Cally, but otherwise she says she is eating smaller portions and that her family is not bringing her any food.
She feels that she is not urinating as much with her regular Lasix dosing.
Progress Note - Crop Duster Helper
Subjective
Date of Service: October 09, 2023
Breathing is overall stable. Creatinine is down to 1.3. Denies chest pains.
Objective
Labs:
10/06/23 05:32
10/09/23 07:17
Labs
Hgb 8.9 g/dL (12.0-16.0) L 10/06/23 05:32
Hct 28.5 % (37.0-47.0) L 10/06/23 05:32
Plt Count 206 10^3/uL (130-400) 10/06/23 05:32
Sodium 135 mmol/L (135-145) 10/09/23 07:17
Potassium 3.9 mmol/L (3.5-5.1) 10/09/23 07:17
BUN 59 mg/dl (7-17) H 10/09/23 07:17
Creatinine 1.3 mg/dL (0.6-1.0) H 10/09/23 07:17
Glucose 84 mg/dl (70-99) 10/09/23 07:17
Vital Signs and I&O:
Vital Signs
Temp Pulse Resp BP Pulse Ox
97.9 F 68 20 132/62 98
10/09/23 08:10 10/09/23 09:31 10/09/23 08:10 10/09/23 09:31 10/09/23 08:10
Vital Signs
Temp Pulse Resp BP Pulse Ox
97.9 F 68 20 132/62 98
04/12/24 08:10 10/09/23 09:31 10/09/23 08:10 10/09/23 09:31 10/09/23 08:10
Intake & Output
10/07/23 10/08/23 10/09/23 10/10/23
06:59 06:59 06:59 06:59
Intake Total 840 / 840 1080 / 1080 420 / 420
Output Total 325 / 325 100 / 100 600 / 600
Balance 515 / 515 980 / 980 -180 / -180
Physical Exam
Physical Exam
GEN: No distress, awake, Ox3
HEENT: supple, anicteric, mmm
LUNGS: CTA, no wheezes/rales
CV: Reg, S1/S2, 1/6 syst LSB, no murmur
ABD: soft, BS+, NT/ND
EXT: +1 edema
NEURO: Gross non-focal
SKIN: severe chronic stasis changes
[2023-10-09 11:37] VITALS: BP 127/55
[2023-10-09 11:50] LABS: Glucose - Point of Care 171 mg/dl (70-99)
--- NOTE | 2023-10-09 12:33 | CM ---
Addendum entered by Linn Vanegas 10/09/23 15:14:
Met with patient @ bedside
IMM benefit explained; form signed @ 1511
Addendum entered by Linn Vanegas 10/09/23 14:43:
Ambulance greens picker time scheduled for 1829
Addendum entered by Linn Vanegas 10/09/23 14:39:
Per daughter's request, referral sent to [facility]; referral accepted
Plan: Discharge to [facility] today
Transport via ambulance
Report # [phone]

Addendum entered by Linn Vanegas 10/09/23 12:46:
[facility] reviewed SNF referral; they are unable to accept patient
Original Note:
Met with patient at bedside to discuss status of SNF bed availability; patient is not ready for discharge
Explained to patient that [facility] were contacted; and was told there are were no beds available
Spoke with Bere @ [facility] via phone (she does not have access to [facility]); she will have her compliance manager the referral and let us know if they will accept if/when bed is available
Reminded patient that she was accepted at [facility] and [facility] and when she is stable for discharge we will contact those facilities for bed availability status
[2023-10-09] MEDS: NOVOLOG FLEXPEN-LOW RESISTANCE 1 UNITS SC (13:03)
--- NOTE | 2023-10-09 13:46 | W.PN.HOSP.TC ---
Today's Communication/Plan
-
DC
Assessment / Plan
Assessment / Plan
Ms. 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
recent admissions for heart failure 08/28/23-09/10/23 and 09/16/23-09/21/23 (outpatient lasix increased from 80 to 120mg daily) presents to the ER with weight gain and shortness of breath.
Acute on chronic Heart Failure mildly Reduced EF Acute Exacerbation
-weight today is 248LB
-ON IV Lasix 80 mg twice daily and cardiology made adjustment today- Switched to oral lasix and cleared for dc from their end
-ECHO 09/30 shows midrange EF ,diastolic dysfunction as before but slightly higher pulmonary arterial pressure.
-Imdur added by cardiology
- Hydralazine
- Toprol-XL
Chronic Hypoxic respiratory Failure
-patient states she has been on oxygen since got covme 2 years ago, normally wears 2 L. Wean if possible down but otherwise cw 4l - pt without respiratory distress .
Eosinophilia
-unclear trigger. no e/o infection, no new meds( last new med regimen is change of Cardizem to Hydralazine and imdur in jul 2023 during her [facility] admission)
- Would repeat it in a week or two and if still remains elevated will first consider changing Hydralazine and proceed further if still elevated.
Improving
CKD3b
-creatinine is at baseline
-monitor with diuresis
-Recheck labs
BL Left>right rotator cuff pain /decreased ROM - Non traumatic -cw symptomatic tx . Advised OP ortho follow up .
Other problems:
Essential hypertension: cont Hydralazine/BB/Imdur
PVC's: PSYCH TECH Metoprolol
DM2: SSI/accuchecks
Hyperlipidemia: cont statin
Asthma/COPD: Cont Advair
Obstructive sleep apnea
h/o right lower extremity DVT
Morbid obesity due to excess calories
DVT PPx hep subQ
FULL CODE
PT OT evals noted-SNF recommended
medically stable for discharge to rehab today.
Patient agreeable for discharge to rehab
More than 30 minutes spent in discharge including
Final examination of the patient
Summarizing hospital stay
Instructions for continuing care to all relevant caregivers
Preparation of discharge records, prescriptions, and referral forms
Total time spent (in minutes): 35
Anticipated Discharge: Today
Subjective/Interval History
-
Date of Service: October 09, 2023
Feeling improved
Breathing is better
Denies CP
Objective Data
-
Labs:
Laboratory Results
10/09/23
07:17
Sodium 135
Potassium 3.9
Chloride 97 L
Carbon Dioxide 30
BUN 59 H
Creatinine 1.3 H
Glucose 84
Calcium 8.4
Vital Signs:
Vital Signs
Temp Pulse Resp BP Pulse Ox
98 F 78 20 127/55 98
10/09/23 11:37 10/09/23 11:37 10/09/23 11:37 10/09/23 11:37 10/09/23 11:37
I&O
10/08/23 10/09/23 10/10/23
06:59 06:59 06:59
Intake Total 1080 / 1080 420 / 420
Output Total 100 / 100 600 / 600
Balance 980 / 980 -180 / -180
Review of Systems
-
Constitutional: Denies Fever
EENT: Denies Sore Throat
Respiratory: Denies Cough
Abdomen/GI: Denies Nausea or Vomiting
Neuro: Denies Dizzy or Headache
Physical Exam
-
General: No Apparent Distress
HEENT: Moist Mucous Membranes
Respiratory: Clear to Auscultation
Cardiac: Regular Rhythm and S1/S2
GI: Soft
Skin: Other ( chronic lower extremity stasis dermatitis changes as before without acute redness or tenderness)
Neuro: AO x 3
Psych: Calm; Negative Confused
Data Reviewed
-
Labs: Labs Reviewed by me
--- NOTE | 2023-10-09 13:54 | W.DS.TRANS ---
DC Summary - [facility]
-
Discharge Instructions:
Discharge Diagnosis/Procedures CHF decompensation
Diet 2 Gram Sodium,Restrict fluids to 48 oz
Activity As tolerated
Driving Restrictions No driving
Blood Work BMP in one week
Others Tests wean oxygen if able -currently on 4l ;baseline
need 2l
Other Services PT,OT
Specialty Instructions Weigh Daily
Instructions: *DCA Heart Failure Instructions
Stand-Alone Forms:
Changes to Home Medications: No
Discharge Medications:
DC Medications w/original date entered in [employer]
atorvastatin 20 mg tablet 20 mg PO HS High cholesterol 11/08/19
aspirin 81 mg tablet,delayed release 81 mg PO DAILY Blood clot prevention/tx 09/01/22
acetaminophen 325 mg tablet (Tylenol) 650 mg PO Q6HPRN PRN mild pain/fever 07/27/23
potassium chloride 20 mEq tablet,extended release(part/cryst) (Klor-Con M) 20 meq PO YRAN Supplement 07/27/23
hydralazine 50 mg tablet 50 mg PO BID #60 tabs 07/31/23
miconazole nitrate 2 % topical powder (Miconazorb AF) 1 applic topical BID apply to folds 08/28/23
bisacodyl 10 mg rectal suppository (Dulcolax (bisacodyl)) 10 mg NV DAILY PRN if no BM in 8hr after MOM 09/16/23
levalbuterol tartrate 45 mcg/actuation aerosol inhaler 2 inh inhalation R DAILYPRN PRN sob 09/16/23
magnesium hydroxide 400 mg/5 mL oral suspension (Milk of Magnesia) 30 ml PO DAILY PRN if no BM x 2 days 09/16/23
repaglinide 0.5 mg tablet 0.5 mg PO [id number] PRN for glucose>150 09/16/23
sodium phosphates 19 gram-7 gram/118 mL enema (Fleet Enema) 118 ml NV DAILYPRN PRN if no BM 8hr after supp 09/16/23
isosorbide mononitrate 30 mg tablet,extended release 24 hr 30 mg PO DAILY #0 tabs 09/21/23
metoprolol succinate 25 mg tablet,extended release 24 hr 25 mg PO DAILY #0 tabs 09/21/23
ammonium lactate 12 % lotion 1 applic topical BID apply to BLLE 10/01/23
furosemide 40 mg tablet 120 mg PO DAILY Fluid Retention/Swelling 10/02/23
furosemide 80 mg tablet 80 mg PO DAILY@1600 #1 tab 10/09/23
lidocaine 4 % topical patch 2 patch topical DAILY #1 ea 10/09/23
Home Medication Changes
Pending Results: No
--- NOTE | 2023-10-09 14:03 | W.HF.CON ---
Heart Failure
- LV Function
Left ventricular function study result: LV Ejection fraction >40%
Ejection Fraction Percentage: 45-50
- ARNI
Patient already on ARNI: No
Heart Failure ARNI Not Indicated: LV Ejection Fraction >/= 40%
- ACEI/ARB
Patient already on ACEI/ARB: No
Heart Failure ACEI/ARB Not Indicated: LV Ejection Fraction > 40%
- Beta Floresita
Patient already on Evidence Based Beta Floresita: Yes
- Mineralocorticord Receptor Antagonist
Patient already on MRA: No
Heart Failure MRA Not Indicated: LV Ejection Fraction > 40%
- SGLT-2 Inhibitor
Patient already on SGLT-2 Inhibitor: No
Heart Failure SGLT-2 Inhibitor Not Indicated: LV Ejection Fraction >40%
- NYHA CHF Classification
NYHA CHF Classification Level: Class III - Symptoms w/ min exertion, interferes w/ nml daily activity
- ACC/AHA Stage
ACC/AHA Stage: Stage C: Symptomatic Heart Failure
[2023-10-09 16:16] VITALS: BP 126/66
[2023-10-09 16:43] LABS: Glucose - Point of Care 111 mg/dl (70-99)
[2023-10-09] MEDS: LASIX 80 MG PO (17:25)
--- NOTE | 2023-10-09 18:43 | PTCARENOTE ---
Multiple calls to Prosper Gomez at [phone] to give report. Either there has been no answer or they pickle solution maker phone an hang up. 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
[2023-10-09 19:25] VITALS: BP 121/61
[2023-10-09] MEDS: TYLENOL 650 MG PO (20:08)
== END 2023-10-09 20:55 | DRG 291 ==
LOC: 4 EAST ACU 03:40
PROVIDERS: Clinical Nurse Specialist Family Health; Internal Medicine; ADMITTING PHYSICIAN Student in an Organized Health Care Education/Training Program; ATTENDING PHYSICIAN Internal Medicine; EMERGENCY PHYSICIAN Emergency Medicine; FAMILY PHYSICIAN Family Medicine; OTHER PHYSICIAN Internal Medicine Cardiovascular Disease
DX: I13.0 Hypertensive heart and chronic kidney disease with heart failure and stage 1 through stage 4 chronic kidney disease, or unspecified chronic kidney disease (principal); I50.23 Acute on chronic systolic (congestive) heart failure; Z68.41 Body mass index [BMI] 40.0-44.9, adult; J96.11 Chronic respiratory failure with hypoxia; I47.20 Ventricular tachycardia, unspecified; N18.32 Chronic kidney disease, stage 3b; E11.22 Type 2 diabetes mellitus with diabetic chronic kidney disease; E78.00 Pure hypercholesterolemia, unspecified; I89.0 Lymphedema, not elsewhere classified; J44.89 Other specified chronic obstructive pulmonary disease; E11.36 Type 2 diabetes mellitus with diabetic cataract; E11.40 Type 2 diabetes mellitus with diabetic neuropathy, unspecified; G47.33 Obstructive sleep apnea (adult) (pediatric); D64.9 Anemia, unspecified; L23.7 Allergic contact dermatitis due to plants, except food; G43.909 Migraine, unspecified, not intractable, without status migrainosus; E66.01 Morbid (severe) obesity due to excess calories; E83.51 Hypocalcemia; D72.10 Eosinophilia, unspecified; I87.8 Other specified disorders of veins; I44.7 Left bundle-branch block, unspecified; Z79.82 Long term (current) use of aspirin; Z79.51 Long term (current) use of inhaled steroids; Z88.8 Allergy status to other drugs, medicaments and biological substances; Z88.6 Allergy status to analgesic agent; Z88.1 Allergy status to other antibiotic agents; Z91.040 Latex allergy status; Z86.718 Personal history of other venous thrombosis and embolism; Z11.52 Encounter for screening for COVID-19; Z86.16 Personal history of COVID-19; Z99.81 Dependence on supplemental oxygen; Z91.119 Patient's noncompliance with dietary regimen due to unspecified reason; Z91.148 Patient's other noncompliance with medication regimen for other reason
CPT/HCPCS: 70140; 71046; 80048; 80053; 82962; 83735; 83880; 84484; 85025; 87070; 87811; 93005; 93306; 94640; 96374; 97116; 97530; 99285

== ENCOUNTER 2023-10-20 16:20 | Inpatient (IN) | payer MEDICARE, OTHER, SELFPAY ==
[2023-10-20] VITALS (12 sets, daily range): BP systolic 100–142; BP diastolic 41–86; BMI 45.3; BMI 44.7
--- NOTE | 2023-10-20 10:23 | PHANOTE ---
MED REC NOTE- PATIENT COMES FROM [facility], PREVIOUSLY AT [place] AND DISCHARGE ON 10/14/23, PATIENT HUA SUMMERVE PRE PACKED MEDICATION WITH HER BUT SHE IS NOT TAKING THE IN ORDER DATE AND NUMBER ON PACKAGES SHOULD MATCH. PATIENT DOES HAVE
DISCHARGE PAPERWORK WITH HER FROM [facility], I DID CALL [facility] AT [phone] BUT NO ANSWER AND LEFT A VOICE MAIL
--- NOTE | 2023-10-20 10:25 | ED.GENMED ---
History of Present Illness
General
Chief Complaint: Skin Problem
Source: patient and family (Daughter)
Time Seen by Provider: 10/20/23 10:05
Travel History
Have you had any contact with someone who has COVID-19?: No
Do you have any symptoms of coronavirus? Fever > 100 degrees, chills, cough, shortness of breath, sore throat, loss of taste or smell, muscle aches, or headache?: No
History of Present Illness
History of Present Illness:
78-year-old female presents to the emergency room from her primary care doctor's office. Patient went to the primary care doctor for evaluation of a wound on her right lower extremity as well as erythema and discharge from the wound. Patient also
has heart failure and feels quite short of breath. The primary care doctor office noted her pulse oximetry to be in the low 80s. Patient states that she gets extremely short of breath with minimal exertion. Patient endorses chronic changes of
bilateral lower extremities but the right leg seems much worse recently.
Past History
Past History
ED Past Medical History: Arrthythmia (Frequent PVCs), Asthma, CHF, COPD, HTN, Hypercholesterolemia, NIDDM, Other (Chronic lymphedema, Migraines, PNA, DVT, Anemia) and Other (Right lower extremity DVT October 2019)
ED Past Surgical History: Gynecological (Several D&Cs, miscarriage), Tonsilectomy and Other (Cancerous mass removed from right leg 20 years ago. Breast mass removed noncancerous. cataracts, )
Social History
Tobacco: Non-smoker
Alcohol: None
Personal:
Living: assisted living (She lives with her family but she is in rehab at this time at [facility])
Employment: Retired
Family History
Family History: Other (Noncontributory)
Phy Exam
Physical Exam
Physical Exam:
General: Awake, Alert, Oriented X3. Appears chronically ill, dyspneic
Vitals: Bradycardic by pulse ox but heart rate in the 70s on the monitor technician with bigeminy
Head: Atraumatic
Eyes: Pupils equal, EOMI
Throat: Airway intact, no exudates
Neck: Trachea midline
Lungs: Crackles bilaterally
Heart: Regular rate, 2/6 murmurs
Abd: Soft, Nontender, No pulsatile mass
Neuro: Nonfocal
Skin: Warm, dry, no rash
Extremities: Changes of chronic venous stasis with hypertrophied skin and discoloration. Right lower extremity is significantly more edematous than the left. There is a dime size lesion on the lower lateral aspect of the leg with serous drainage.
Course
Orders/Labs/Results
Orders:
Orders
10/20/23 10:06
Electrocardiogram (*1) Urgent
Reason for Study: Chest Pain
Cardiac Monitoring- Treatment ONCE
IV Insert/Care/Rem.- Treatment PRN
10/20/23 10:07
EKG- Treatment ONCE
10/20/23 10:23
CR Chest - 2 Views Urgent
Comment:
Reason For Exam: sob
10/20/23 10:27
Complete Blood Count/With Diff Urgent
Comprehensive Metabolic Panel Urgent
Lactic Acid Urgent
Troponin I Urgent
Blood Culture Q30M
SAMEERA Source: Blood/Venous
Specimen Description:
Date Specimen was Collected: 10/20/23
Time Specimen was Collected: 10:06
10/20/23 10:34
Blood Culture Q30M
SAMEERA Source: Blood/Venous
Specimen Description:
Date Specimen was Collected: 10/20/23
Time Specimen was Collected: 10:06
10/20/23 13:11
Oxycodone [Roxicodone] 5 mg PO NOW STA
US Periph Venous LOWER Ext RT Urgent
Comment:
Reason For Exam: pain, swelling,
10/20/23 13:12
Furosemide [Lasix] 80 mg IV NOW STA
10/20/23 14:01
Vancomycin [Vancocin] 2,000 mg 0.9% Sodium Chloride 500 ml [Nss] 500 ml IV NOW
Abnormal Lab Results
10/20/23
10:27
RBC 3.65 L 10^6/uL
(4.20-5.40)
Hgb 10.0 L g/dL
(12.0-16.0)
Hct 31.3 L %
(37.0-47.0)
MCHC 31.9 L g/dL
(33.0-37.0)
RDW 18.5 H %
(11.5-14.5)
Absolute Neuts (auto) 7.2 H 10^3/uL
(1.4-6.5)
Absolute Lymphs (auto) 0.8 L 10^3/uL
(1.2-3.4)
Absolute Monos (auto) 0.9 H 10^3/uL
(0.1-0.6)
Neutrophils % 77.7 H %
(42.2-75.2)
Lymphocytes % 8.4 L %
(20.5-51.1)
Monocytes % 9.5 H %
(1.7-9.3)
BUN 76 H mg/dl
(7-17)
Creatinine 1.7 H mg/dL
(0.6-1.0)
Glucose 119 H mg/dl
(70-99)
10/20/23 10:27
10/20/23 10:27
Vital Signs
Initial and Last Documented VS:
Initial Vital Signs
Temp Pulse Resp BP Pulse Ox
98 F 38 18 123/51 96
10/20/23 09:59 10/20/23 09:59 10/20/23 09:59 10/20/23 09:59 10/20/23 09:59
Last Documented Vital Signs
Temp Pulse Resp BP Pulse Ox
98 F 74 19 100/47 100
10/20/23 09:59 10/20/23 14:30 10/20/23 14:30 10/20/23 14:00 10/20/23 14:58
MDM/Problems Addressed
MDM/Problems Addressed:
I have reviewed the patient's notes from her most recent hospitalization including cardiology notes and hospitalist notes. It appears that she has advanced heart failure and has been in and out of the hospital frequently. Her weight at discharge
recently was 248 today her weight is 255. We will obtain an ultrasound to evaluate the right lower extremity.
Patient has had a 7 pound since being discharged. Labs show elevated renal function. Clinically she seems to have worsening heart failure. Will hospitalize for IV antibiotics, diuresis
*Pulse Oximetry
Patient hypoxic: no
*Critical Care Note
Total Time (30-74mins, 75-104mins- exclusive of procedures): Not Applicable
Data Reviewed
Review of Other/Old Records Reveals: Discharge Summary (from two most recent admissions)
ED Attending Note
-
Portions of this chart may have been created with voice recognition software.� Occasional wrong word or��sound alike� substitutions may have occurred due to the inherent limitations of voice recognition software.
Discharge Plan
Departure
Patient Disposition: Admit
Date of Disposition: 10/20/23
Time of Disposition: 13:12
Admit to: Med/Surg
Presentation/result/management discussed w/ accepting MD/DO: Hospitalist
Condition: Fair
Discharge Problem:
Cellulitis, CHF (congestive heart failure)
Prescriptions:
No Action
atorvastatin 20 MG tablet
20 mg PO HS
Hold Instructions: Resume on 08/04/23.
aspirin 81 MG tablet,delayed release (DR/EC)
81 mg PO DAILY
acetaminophen [Tylenol] 325 mg Tablet
650 mg PO Q6HPRN MDD 3000 mg PRN (Reason: mild pain/fever)
potassium chloride [Klor-Con M20] 20 mEq tablet,ER particles/crystals
20 meq PO RYAN
miconazole nitrate [Miconazorb AF] 2 % powder
1 applic topical BID
magnesium hydroxide [Milk of Magnesia] 400 mg/5 mL Suspension
30 ml PO DAILY PRN (Reason: if no BM x 2 days)
repaglinide 0.5 mg Tablet
0.5 mg PO [id number] PRN (Reason: for glucose>150)
bisacodyl [Dulcolax (bisacodyl)] 10 mg Suppository
10 mg NH DAILY PRN (Reason: if no BM in 8hr after MOM)
Fleet Enema 19-7 gram/118 mL Enema
118 ml NH DAILYPRN PRN (Reason: if no BM 8hr after supp)
levalbuterol tartrate 45 mcg/actuation Hfa Aerosol Inhaler
2 inh INHALATION R DAILYPRN PRN (Reason: sob)
ammonium lactate 12 % Lotion
1 applic TOPICAL BID
furosemide 40 mg tablet
80 mg PO DAILY
metolazone 2.5 mg Tablet
2.5 mg PO RYAN
Theragen Tablet
1 tab PO DAILY
fluticasone propion-salmeterol [Advair HFA] 115-21 mcg/actuation Hfa Aerosol Inhaler
2 puff INHALATION R BID
furosemide 80 mg tablet
40 mg PO DAILY@1600
lidocaine 4 % adhesive patch,medicated
2 patch topical DAILY
isosorbide mononitrate 30 mg tablet extended release 24 hr
30 mg PO DAILY
hydralazine 50 mg tablet
50 mg PO BID
metoprolol succinate 25 mg tablet extended release 24 hr
25 mg PO DAILY
Referrals:
Miguel Bella DO [Family Provider] -
Interventions
Interventions:
*Risk Screen - Suicide Last Done: 10/20/23 10:25
*General Assessment Last Done: 10/20/23 10:25
*Neglect/Abuse Screening Last Done: 10/20/23 10:25
ED- Fall Risk Assessment Last Done: 10/20/23 10:25
*ED COVID-19 Vaccine History Last Done: 10/20/23 10:25
ED-Skin Assessment Last Done: 10/20/23 11:42
Discharge Date and Time
Print Language: ITALIAN
[2023-10-20 10:35] LABS: % Basophils 0.9 % (0-2); % Eosinophils 3.2 % (0-6); % Immature Granulocytes 0.3 % (0-0.5); % Lymphocytes 8.4 % (20.5-51.1); % Monocytes 9.5 % (1.7-9.3); % Neutrophils 77.7 % (42.2-75.2); Absolute Basophils 0.1 10^3/uL (0-0.2); Absolute Eosinophils 0.3 10^3/uL (0-0.7); Absolute Lymphocytes 0.8 10^3/uL (1.2-3.4); Absolute Monocytes 0.9 10^3/uL (0.1-0.6); Absolute Neutrophils 7.2 10^3/uL (1.4-6.5); Hematocrit 31.3 % (37.0-47.0); Mean Corp Hgb Conc. 31.9 g/dL (33.0-37.0); Mean Corpuscular Hgb 27.4 pg (27.0-31.0); Mean Corpuscular Volume 85.8 fL (81.0-99.0); Mean Platelet Volume 9.4 fL (7.4-10.4); Nucleated Red Blood Cells % 0 %; Platelet Count 263 10^3/uL (130-400); Red Blood Cell Count 3.65 10^6/uL (4.20-5.40); Red Cell Dist. Width 18.5 % (11.5-14.5); White Blood Cell Count 9.3 10^3/uL (4.8-10.8)
[2023-10-20 10:57] LABS: ALT (SGPT) 16 U/L (0-35); AST (SGOT) 21 U/L (14-36); Albumin 3.8 g/dl (3.5-5.0); Alkaline Phosphatase 120 U/L (38-126); Blood Urea Nitrogen 76 mg/dl (7-17); Calcium 8.9 mg/dl (8.4-10.2); Carbon Dioxide 29 mmol/L (22-30); Chloride 98 mmol/L (98-107); Estimated Creatinine Clearance -2 ml/min; Glucose 119 mg/dl (70-99); Potassium 3.7 mmol/L (3.5-5.1); Sodium 138 mmol/L (135-145); Total Bilirubin 0.6 mg/dl (0.2-1.3); Total Protein 7.6 g/dl (6.3-8.2); eGFR 30.13
[2023-10-20 11:05] LABS: Troponin I 0.031 ng/ml
--- NOTE | 2023-10-20 11:30 | WOUNDNOTE ---
Wound/Skin Care note: Pt identified by name and .
Medial aspect R lower leg
R mid and upper lower extremity medial aspect
R upper leg medial aspect
wound on mid R calf
R lateral/anterior lower leg
R anterior lower leg, ankle and foot
L medial lower leg
L medial lower leg and heel
L anterior foot
L anterior lower leg
under L breast
L axilla
L axilla
R breast
under R breast
R breast
R shoulder and upper arm
--- NOTE | 2023-10-20 11:40 | WOUNDNOTE ---
Skin/wound care note: Pt identified by name and .
R lower anterior leg/ankle/foot
R lower leg anterior
closeup of wound above R ankle lateral side of leg
--- NOTE | 2023-10-20 12:00 | EDRN ---
Oxygen decreased from 6lpm to 4lpm for POX 98%.
[2023-10-20] MEDS: ROXICODONE 5 MG PO (13:21)
--- NOTE | 2023-10-20 13:23 | EDRN ---
Pharmacy is dosing the vancocin. Will administer Lasix post US.
--- NOTE | 2023-10-20 13:30 | EDRN ---
Per Dr. Ruiz US may be held until after US is completed. R/T pt not able to hold her urine.
--- NOTE | 2023-10-20 13:31 | EDRN ---
At 10:35 pt was taken for a US. Once there this RN just discovered that US was refused by pt and canceled by US tech. Dr. Ruiz and myself were not informed. Pt stated she had refused US as she had had one a month ago and that she had had pain
when it was done. Pt was just premedicated w/ oxycodone for any pain she may incur during US at this time. This RN called US and asked when she would be able to go, no response or guestemate was given by tech. Dr. Ruiz said okay to hold lasix
until pt returns from US as pt cannot be on Purewyck while in US.
--- NOTE | 2023-10-20 13:35 | EDRN ---
Pt had problems swallowing her boxed lunch. Will request a speech consult to check pt swallowing. Pt choking on apple juice and her sandwick.
--- NOTE | 2023-10-20 13:40 | EDRN ---
Purewyck placed to get urine output post lasix. Lasix on hold until pt returns from US.
[2023-10-20] MEDS: VANCOCIN 540 MG IV (14:36)
[2023-10-20] MEDS: LASIX 80 MG IV (15:20)
--- NOTE | 2023-10-20 15:34 | EDRN ---
Unable to straighten arm well so vancomycin IV pump kept beeping due to location of IV. New IV started in R hand #20 pt and infusing well now. Oxygen decreased to 3 lpm as POX 97-100% on 4lpm. Pt is on 2-3lpm via NC at home.
--- NOTE | 2023-10-20 15:51 | EDRN ---
Dr. Knight in room w/ pt. Dr. Knight informed of pt's difficulty swallowing sandwich and apple juice.
--- NOTE | 2023-10-20 16:14 | EDRN ---
Dr. Knight shown bilateral breasts redness and L axilla area. Dr. Knight said pt will have a wound/ostomy consult.
--- NOTE | 2023-10-20 16:15 | EDRN ---
Dr. Knight also informed that oxygen was weaned down from 6lpm to 3lpm per NC as pt is usually on 2-3 lpm of oxygen at home.
--- NOTE | 2023-10-20 16:25 | HPS.HSE ---
Family Physician
-
Family Physician: Miguel Bella
Chief Complaint
-
Shortness of breath
History of Present Illness
Patient is 78 years old female with heart failure mildly reduced EF, pulmonary hypertension, recently admitted with acute exacerbation and diuresed who now presents to emergency room from primary physician office where patient was found to be
severely short of breath with oxygen saturations at 70s to 80s while on chronic oxygen supplementation at 2 L. Patient complains of gaining weight since her recent discharge from the hospital. She has been able to walk only short distances. She
denies any chest pain, fever.
While on presentation to the emergency room patient was found to be hypoxic while on 2 L of nasal cannula oxygen and required increased flow up to 6 L. She was given IV Lasix 80 mg. Her dyspnea improved with now patient able to 2 wean down oxygen
at 4 L nasal cannula. She is not in distress.
In addition patient complains of worsening of bilateral lower extremity edema and right lower extremity erythema and induration. She denies any fever.
In addition patient mentioned difficulty swallowing solids and liquids and occasional cough.
Medical History
Past Medical History
Past Medical History: Reports CHF, HTN and NIDDM
Past Surgical History: Reports None
Social History
Tobacco: Non-smoker
Alcohol: None
Drug: None
Living: With Family
Employment: Retired
Family History
Family History: Not pertinent
Allergies / Home Medications
Allergies reflects when Allergies were last updated in [facility].
Home Medications with original date entered in [facility]
Allergy/Medication List:
Allergies
Allergy/AdvReac Type Severity Reaction Status Date / Time
albuterol Allergy 'could not Verified 10/20/23 11:08
breath'
ceftriaxone [From Rocephin] Allergy Rash Verified 10/20/23 11:08
08/28/23
admission
cefuroxime [From Ceftin] Allergy facial Verified 10/20/23 11:08
droop,lip
swell/Margie
cefepime,
cefazolin
latex Allergy Rash Verified 10/20/23 11:08
levofloxacin [From Levaquin] Allergy facial Verified 10/20/23 11:08
droop,
rash,
numbness
lisinopril Allergy Shortness Verified 10/20/23 11:08
of Breath
naproxen Allergy Rash Verified 10/20/23 11:08
NSAIDS (Non-Steroidal Allergy Rash Verified 10/20/23 11:08
Anti-Inflamma
poison aroldo extract Allergy Unknown Verified 10/20/23 11:08
poison oak extract Allergy Unknown Verified 10/20/23 11:08
Home Medications
atorvastatin 20 mg tablet 20 mg PO HS High cholesterol 11/08/19
aspirin 81 mg tablet,delayed release 81 mg PO DAILY Blood clot prevention/tx 09/01/22
acetaminophen 325 mg tablet (Tylenol) 650 mg PO Q6HPRN PRN mild pain/fever 07/27/23
potassium chloride 20 mEq tablet,extended release(part/cryst) (Klor-Con M) 20 meq PO RYAN Electrolyte Repletion 07/27/23
miconazole nitrate 2 % topical powder (Miconazorb AF) 1 applic topical BID apply to folds 08/28/23
bisacodyl 10 mg rectal suppository (Dulcolax (bisacodyl)) 10 mg NH DAILY PRN if no BM in 8hr after MOM 09/16/23
levalbuterol tartrate 45 mcg/actuation aerosol inhaler 2 inh inhalation R DAILYPRN PRN sob 09/16/23
magnesium hydroxide 400 mg/5 mL oral suspension (Milk of Magnesia) 30 ml PO DAILY PRN if no BM x 2 days 09/16/23
repaglinide 0.5 mg tablet 0.5 mg PO [id number] PRN for glucose>150 09/16/23
sodium phosphates 19 gram-7 gram/118 mL enema (Fleet Enema) 118 ml NH DAILYPRN PRN if no BM 8hr after supp 09/16/23
ammonium lactate 12 % lotion 1 applic topical BID apply to BLLE 10/01/23
furosemide 40 mg tablet 80 mg PO DAILY Fluid Retention/Swelling 10/02/23
fluticasone propionate 115 mcg-salmeterol 21 mcg/actuation HFA inhaler (Advair HFA) 2 puff inhalation R BID Lung/Breathing Issues 10/20/23
furosemide 80 mg tablet 40 mg PO DAILY@1600 Fluid Retention/Swelling 10/20/23
hydralazine 50 mg tablet 50 mg PO BID Blood Pressure 10/20/23
isosorbide mononitrate 30 mg tablet,extended release 24 hr 30 mg PO DAILY Heart Disease/Condition 10/20/23
lidocaine 4 % topical patch 2 patch topical DAILY Pain 10/20/23
metolazone 2.5 mg tablet 2.5 mg PO RYAN Fluid Retention/Swelling 10/20/23
metoprolol succinate 25 mg tablet,extended release 24 hr 25 mg PO DAILY Blood Pressure 10/20/23
therapeutic multivitamin 1 tab PO DAILY Supplement 10/20/23
Review of Systems
-
A 12 point ROS was completed and negative except as noted: Yes
Constitutional: Reports No Symptoms
EENT: Reports No Symptoms
Respiratory: Reports See HPI
Cardiac: Reports See HPI
Abdomen/GI: Reports No Symptoms
: Reports No Symptoms
Musculoskeletal: Reports No Symptoms
Skin: Reports No Symptoms
Neurological: Reports No Symptoms
Endocrine: Reports No Symptoms
Hematologic/Lymphatic: Reports No Symptoms
Psych: Reports No Symptoms
Physical Exam
Vital Signs
Vital Signs
Temp Pulse Resp BP Pulse Ox
98 F 73 14 107/62 96
10/20/23 09:59 10/20/23 16:00 10/20/23 16:00 10/20/23 16:00 10/20/23 16:00
Physical Exam
General: Well Developed, Well Nourished and No Apparent Distress
HEENT: NormoCephalic, Moist mucous membranes and Atraumatic
Respiratory: Clear
Cardiac: S1/S2 and Regular Rhythm; No Murmur or Rub
GI: Soft, Non Tender, Non Distended and Normal Bowel Sounds; No Organomegaly
Rectal: Deferred by Provider
Musculoskeletal: No Clubbing, No Cyanosis and Other (Bilateral lower extremity edema with venous stasis and chronic dermatitis. Significant erythema with induration right greater than left)
Skin: No Rash
Neuro: Nonfocal/grossly intact
Laboratory Results
-
10/20/23 10:27
10/20/23 10:27
Laboratory Results
Lactic Acid 2.0 mmol/L (0.7-2.0) 10/20/23 10:27
Total Bilirubin 0.6 mg/dl (0.2-1.3) 10/20/23 10:27
AST 21 U/L (14-36) 10/20/23 10:27
ALT 16 U/L (0-35) 10/20/23 10:27
Alkaline Phosphatase 120 U/L (38-126) 10/20/23 10:27
Troponin I 0.031 ng/ml 10/20/23 10:27
Impression/Plan
-
IMPRESSION:
Patient patient with severe exertional dyspnea and hypoxemia
Acute on chronic hypoxic respiratory failure.
Chronic CHF mildly reduced EF.
Pulmonary hypertension.
Acute on chronic bilateral right greater than left lower extremity cellulitis complicated with chronic lymphedema/venous stasis dermatitis.
Bilateral breast cellulitis with skin excoriation.
Reported dysphagia
Conditions prior to admission close
CHF mildly reduced EF
Multiple hospitalizations for above
CKD stage IIIb baseline creatinine 1.5-2
Chronic hypoxic respiratory failure on home O2 at 2 L nasal cannula.
Asthma/COPD.
Essential hypertension
Dyslipidemia
Diabetes type 2 [id number]
Obstructive sleep apnea.
Prior history of DVT.
Morbid obesity BMI 45.
Chronic lymphedema with venous stasis dermatitis.
History of medications and dietary noncompliance.
PLAN:
Acute CHF mildly reduced EF.
Pulmonary hypertension
Suspect cardiorenal state.
ECHO 10/01/23: EF 45 to 50%, global hypokinesis, moderate to severe concentric LVH, stage II diastolic dysfunction, mildly dilated RV, mitral sclerosis, mild to moderate , peak/mean gradients 26/18 mmHg, mild AR, mild to moderate TR, PAP 60 to 65
mmHg
Initiate IV diuresis Lasix 80 mg IV twice daily.
Monitor daily weight
Dry weight at the time of prior discharge 112.5 kg
Monitor renal function with diuresis.
Consider addition of metolazone.
Consider cardiology consultation.
Follow-up response to diuresis
Consider further evaluation with VQ scan (severe pulmonary hypertension/hypoxia)
Continue preadmission regimen including metoprolol, Imdur, hydralazine.
GDMT with prior consideration of SGLT2 inhibitor was not able to tolerate due to incontinence
CKD stage IIIb.
Monitor renal function with diuresis.
COPD/asthma
No evidence for exacerbation.
Continue preadmission inhaled corticosteroids and long/short acting bronchodilators.
Bilateral right greater than left lower extremity cellulitis, complicated with chronic lymphedema and dermatitis secondary to venous stasis.
Ultrasound/Doppler lower extremity negative for DVT
IV vancomycin.
Wound care.
Bilateral right greater than left breast cellulitis with excoriation. Wound care.
Type 2 diabetes.
Obesity
Dyslipidemia
Basal bolus protocol.
Serial Accu-Cheks.
Carbohydrate controlled diet.
On repaglinide as needed prior to admission.
[2023-10-20] MEDS: NOVOLOG FLEXPEN-LOW RESISTANCE SC (17:45)
[2023-10-20 17:46] LABS: Glucose - Point of Care 100 mg/dl (70-99)
[2023-10-20] MEDS: TOPROL XL 25 MG PO (17:50)
[2023-10-20] MEDS: IMDUR (EXTENDED RELEASE) 30 MG PO (17:50)
--- NOTE | 2023-10-20 17:52 | PHA.VAN.IN ---
Assessment
- Assessment
Renal Function: Appears elevated from baseline (10/09/23 BASELINE SCR: 1.3)
Concomitant Antimicrobials: NONE
- Previous Dosing Experience
Previous Regimen: DOSING BY RANDOM LEVELS
Date of Regimen: 03/15/23
Provided Trough of: UNKNOWN
Provided AUC of: UNKNOWN
Patient's SCR is: Similar to previous dosing experience (03/15/23 SCR = 1.7)
Patient's weight is: Elevated compared to previous dosing experience (03/15/23 WT = 114 KG)
Plan
- Plan
Initial / Loading Dose: 2GM
Maintenance Regimen: DOSING BY RANDOM LEVELS
Monitoring: RANDOM VANCOMYCIN LEVEL 10/21/23 AM
Pharmacokinetics Vancomycin I
- -
Patient Age: 78
Patient Sex: Female
Vancomycin Day #: 1
Indication: Skin And Soft Tissue (LLE CELLULITIS)
Requesting Provider: CRISTOPHER
Pertinent Antimicrobial Allergies:
Allergies
ceftriaxone [From Rocephin] Allergy (Verified 10/20/23 11:08)
Rash 08/28/23 admission
08/28/23 admission. Drug rash - suspect due to ceftriaxone. Now discontinued. Rash is improving on Zyrtec and prednisone. Pt had tolerated ceftriaxone back 2022 admission.
cefuroxime [From Ceftin] Allergy (Verified 10/20/23 11:08)
facial droop,lip swell/Margie cefepime, cefazolin
pt interview: pt stated she experienced facial droop and lip swelling. Found allergy listed on external medical summary report also. Pt stated occured a few years ago. 08/28/23 admission pt developed rash to ceftriaxone. 06/2022 admission tolerated 7
days of ceftriaxone. 02/2023 admission tolerated 6 days cefepime 03/2023 admission tolerated course of cefazolin
levofloxacin [From Levaquin] Allergy (Verified 10/20/23 11:08)
facial droop, rash, numbness
pt interview: pt stated she experienced facial droop, rash and numbness. Found allergy listed on external medical summary report also. Pt stated occured a few years ago.
Height / Weight:
Height 5 ft 3 in
Actual Weight 116 kg
- Vital Signs / Lab Results
Temp Pulse Resp BP Pulse Ox
98 F 67 15 108/46 94
10/20/23 09:59 10/20/23 17:00 10/20/23 17:00 10/20/23 17:00 10/20/23 17:00
Lab Results - Hematology
10/20/23
10:27
WBC 9.3
Lab Results - Chemistry
10/20/23
10:27
BUN 76 H
Creatinine 1.7 H
Estimated Creat Clear -2
Albumin 3.8
10/20/23
10:27
Lactic Acid 2.0
--- NOTE | 2023-10-20 18:29 | PTCARENOTE ---
Received patient from ED via stretcher. AAOx3, pulled over from stretcher to bed. Assessed and oriented to room. Call disla in close reach.
[2023-10-20] MEDS: ADVAIR HFA 115/21 MCG INHALER 2 PUFF INH (19:16)
[2023-10-20 21:22] LABS: Glucose - Point of Care 138 mg/dl (70-99)
[2023-10-20] MEDS: HEPARIN 5000 UNITS SC (21:49)
[2023-10-20] MEDS: APRESOLINE 50 MG PO (21:49)
[2023-10-20] MEDS: LIPITOR 20 MG PO (21:51)
[2023-10-20] MEDS: DESENEX/MITRAZOL/ZEASORB 1 APPLIC TOPICAL (21:51)
[2023-10-20] MEDS: LAC HYDRIN, AM LACTIN LOTION 1 APPLIC TOPICAL (21:52)
[2023-10-21] VITALS (7 sets, daily range): BP systolic 112–139; BP diastolic 51–68; PULSE 61; O2SAT 94; BMI 44.2
[2023-10-21 05:15] LABS: % Basophils 0.9 % (0-2); % Eosinophils 8.1 % (0-6); % Immature Granulocytes 0.3 % (0-0.5); % Lymphocytes 10.3 % (20.5-51.1); % Monocytes 9.7 % (1.7-9.3); % Neutrophils 70.7 % (42.2-75.2); Absolute Basophils 0.1 10^3/uL (0-0.2); Absolute Eosinophils 0.5 10^3/uL (0-0.7); Absolute Lymphocytes 0.7 10^3/uL (1.2-3.4); Absolute Monocytes 0.7 10^3/uL (0.1-0.6); Absolute Neutrophils 4.7 10^3/uL (1.4-6.5); Hematocrit 27.1 % (37.0-47.0); Hemoglobin 8.5 g/dL (12.0-16.0); Mean Corp Hgb Conc. 31.4 g/dL (33.0-37.0); Mean Corpuscular Hgb 27.1 pg (27.0-31.0); Mean Corpuscular Volume 86.3 fL (81.0-99.0); Mean Platelet Volume 9.4 fL (7.4-10.4); Nucleated Red Blood Cells % 0 %; Platelet Count 229 10^3/uL (130-400); Red Blood Cell Count 3.14 10^6/uL (4.20-5.40); Red Cell Dist. Width 18.3 % (11.5-14.5); White Blood Cell Count 6.7 10^3/uL (4.8-10.8)
[2023-10-21 05:34] LABS: Vancomycin Random 15.2 ug/ml
[2023-10-21 05:38] LABS: Blood Urea Nitrogen 75 mg/dl (7-17); Calcium 8.6 mg/dl (8.4-10.2); Carbon Dioxide 30 mmol/L (22-30); Chloride 102 mmol/L (98-107); Estimated Creatinine Clearance 32 ml/min; Glucose 88 mg/dl (70-99); Sodium 139 mmol/L (135-145); eGFR 30.13
[2023-10-21 07:18] LABS: Glucose - Point of Care 133 mg/dl (70-99)
[2023-10-21] MEDS: ADVAIR HFA 115/21 MCG INHALER 2 PUFF INH ×2 (07:45→20:23)
--- NOTE | 2023-10-21 08:28 | PTOTSP ---
Dysphagia Evaluation
Patient presents with reports concerning for esophageal dysphagia (i.e., reporting solid dysphagia with c/o stasis with bread relieved with a liquid wash). No signs concerning for oral/pharyngeal dysphagia or aspiration observed.
Recommend:
1. Regular, Thin Liquids
2. Strategies: upright to 90 degrees, moisten/soften foods and use sauces/gravies, alternate sips/bites, upright for 30 minutes after meals
3. GI consult to assess for esophageal dysphagia
Will s/o at this time. Please reconsult as appropriate.
[2023-10-21] MEDS: NOVOLOG FLEXPEN-LOW RESISTANCE SC ×2 (09:05→16:58)
[2023-10-21] MEDS: TOPROL XL 25 MG PO (09:06)
[2023-10-21] MEDS: IMDUR (EXTENDED RELEASE) 30 MG PO (09:07)
[2023-10-21] MEDS: APRESOLINE 50 MG PO ×2 (09:07→20:15)
[2023-10-21] MEDS: THERAGRAN 1 TABLET PO (09:07)
[2023-10-21] MEDS: ASPIR LOW (ENTERIC COATED) 81 MG PO (09:07)
[2023-10-21] MEDS: DESENEX/MITRAZOL/ZEASORB 1 APPLIC TOPICAL ×2 (09:07→19:58)
[2023-10-21] MEDS: LASIX 80 MG IV ×2 (09:08→16:14)
[2023-10-21] MEDS: LIDOCAINE 4% PATCH 2 PATCH TOPICAL (09:08)
[2023-10-21 09:09] LABS: Glycohemoglobin (HgbA1c) 5.4 % (4.0-5.6)
[2023-10-21] MEDS: HEPARIN 5000 UNITS SC ×2 (09:09→19:56)
[2023-10-21] MEDS: LAC HYDRIN, AM LACTIN LOTION 1 APPLIC TOPICAL ×2 (09:09→19:58)
[2023-10-21] MEDS: FLUSH (NSS) 1 FLUSH IV ×3 (09:10→16:14)
--- NOTE | 2023-10-21 09:43 | PHA.VAN.FU ---
Vancomycin Assessment / Plan
- Assessment
Renal Function: Stable
WBC's are: WNL
In the past 24 hrs, patient has been: Afebrile
- Assessment - Therapeutic Drug Monitoring
Random Level: 15.2 - drawn ~14.5H after 2g loading dose
- Dosing Plan
Dosing by Level: Re-dose today (Vanc 1000mg)
- Monitoring Plan
Random Level: 10/21 0600
- Follow Up
Pharmacy will continue to follow.
Vancomycin Follow UP
- -
Patient Age: 78
Patient Sex: Female
Vancomycin Day #: 2
Indication: Skin And Soft Tissue
Requesting Provider: Dr. Knight
Pertinent Antimicrobial Allergies:
ceftriaxone [From Rocephin] - Rash 08/28/23 admission
08/28/23 admission. Drug rash - suspect due to ceftriaxone. Now discontinued. Rash is improving on Zyrtec and prednisone. Pt had tolerated ceftriaxone back 2022 admission.
cefuroxime - facial droop,lip swell/Margie cefepime, cefazolin
pt interview: pt stated she experienced facial droop and lip swelling. Found allergy listed on external medical summary report also. Pt stated occurred a few years ago. 08/28/23 admission pt developed rash to ceftriaxone. 06/2022 admission tolerated 7
days of ceftriaxone. 02/2023 admission tolerated 6 days cefepime 03/2023 admission tolerated course of cefazolin
levofloxacin - facial droop, rash, numbness
pt interview: pt stated she experienced facial droop, rash and numbness. Found allergy listed on external medical summary report also. Pt stated occurred a few years ago.
Height / Weight:
Height 5 ft 3 in
Actual Weight 113.171 kg
Pertinent Past Medical History: BMI ~44, CKD III (baseline SCR 1.5-2), COPD (home O2), DM 2
- Vital Signs / Lab Results
Temp Pulse Resp BP Pulse Ox
97.7 F 68 22 131/56 97
10/21/23 07:55 10/21/23 09:08 10/21/23 07:55 10/21/23 09:08 10/21/23 09:05
Lab Results - Hematology
10/20/23 10/21/23
10:27 04:50
WBC 9.3 6.7
Lab Results - Chemistry
10/20/23 10/21/23
10:27 04:50
BUN 76 H 75 H
Creatinine 1.7 H 1.7 H
Estimated Creat Clear -2 32
Albumin 3.8
10/20/23
10:27
Lactic Acid 2.0
Therapeutic Drug Monitoring
Random Vancomycin 15.2 ug/ml 10/21/23 04:50
[2023-10-21 12:06] LABS: Glucose - Point of Care 151 mg/dl (70-99)
[2023-10-21] MEDS: VANCOCIN 200 IV (12:26)
[2023-10-21] MEDS: NOVOLOG FLEXPEN-LOW RESISTANCE 1 UNITS SC (12:27)
--- NOTE | 2023-10-21 12:35 | WOUNDNOTE ---
WON RN note: Patient admitted from SNF with SOB, multiple admissions in 2024
See H&P for complete history.
PMH: CHF, aortic stenosis, HTN, chronic lymphedema, RLE DVT 10/2019, venous insufficiency, asthma, DM, anemia, sleep apnea, obesity, pulmonary HTN, CKD3a,
Wound Location and type/assessment: Patient admitted with Stage 2, sacrum. MASD in skin folds under breasts, excoriations from itching of breasts, venous appearing wound right lateral leg. Bilateral LE +2 audible pulses, +3 edema,
lipodermatosclerosis with chronic dark discolored legs. Patient states that SNF was not applying compression. Heels with adhesive foam intact. Patient stood out of recliner with assistance from RN Mary.
Appetite: good.
Pressure redistribution devices in place: Static air overlay ordered. Air chair cushion in use.
Plan: Local wound care and compression applied to bilateral LE as ordered. Silicone foams applied to sacrum. Continue with fungal powder to skin folds and aquaphor to breast excoriations. Will confirm orders with hospitalist and updated nurse. Care
plan to be updated and will follow as needed.
[2023-10-21] MEDS: HYDROPHOR 1 APPLIC TOPICAL (12:52)
[2023-10-21 13:52] LABS: NT-proBNP 11900 pg/ml
--- NOTE | 2023-10-21 16:10 | PTCARENOTE ---
pt AAO x3, DIALLO; has decreased ROM of arms d/t shoulder discomfort. OOB in chair for shift, rony well, able to stand/transfer with assist x1-2/walker, denies weakness/dizziness. VSS. Telemetry:NSR with freq PVC's; bigeminy/trigeminy. Maintained on
nc 3 lpm- pulse ox 93%, pt with (+) HUA but denies SOB. Abd obese firm , rony PO well. Voids on BSC; occ stress incont. KAROLINA wraps intact to BLE; BLE reddened with dry/crusty skin. Resting quietly at present. Will continue to monitor.
[2023-10-21 16:38] LABS: Glucose - Point of Care 118 mg/dl (70-99)
--- NOTE | 2023-10-21 17:21 | W.PN.HOSP.TC ---
Today's Communication/Plan
-
Dyspnea improves with diuresis.
Continue IV Lasix for another 24 hours.
Consider addition of metolazone.
Continue lower extremity wound care
Continue IV antibiotics.
Physical therapy assessment.
Titrate oxygen as tolerated.
Assessment / Plan
Assessment / Plan
IMPRESSION:
Patient patient with severe exertional dyspnea and hypoxemia
Acute on chronic hypoxic respiratory failure.
Chronic CHF mildly reduced EF.
Pulmonary hypertension.
Acute on chronic bilateral right greater than left lower extremity cellulitis complicated with chronic lymphedema/venous stasis dermatitis.
Bilateral breast cellulitis with skin excoriation.
Reported dysphagia
Conditions prior to admission close
CHF mildly reduced EF
Multiple hospitalizations for above
CKD stage IIIb baseline creatinine 1.5-2
Chronic hypoxic respiratory failure on home O2 at 2 L nasal cannula.
Asthma/COPD.
Essential hypertension
Dyslipidemia
Diabetes type 2 [id number]
Obstructive sleep apnea.
Prior history of DVT.
Morbid obesity BMI 45.
Chronic lymphedema with venous stasis dermatitis.
History of medications and dietary noncompliance.
PLAN:
Acute CHF mildly reduced EF.
Pulmonary hypertension
Suspect cardiorenal state.
ECHO 10/01/23: EF 45 to 50%, global hypokinesis, moderate to severe concentric LVH, stage II diastolic dysfunction, mildly dilated RV, mitral sclerosis, mild to moderate , peak/mean gradients 26/18 mmHg, mild AR, mild to moderate TR, PAP 60 to 65
mmHg
Initiate IV diuresis Lasix 80 mg IV twice daily.
Monitor daily weight
Dry weight at the time of prior discharge 112.5 kg
Monitor renal function with diuresis.
Consider addition of metolazone.
Consider cardiology consultation.
Follow-up response to diuresis
Consider further evaluation with VQ scan (severe pulmonary hypertension/hypoxia)
Continue preadmission regimen including metoprolol, Imdur, hydralazine.
GDMT with prior consideration of SGLT2 inhibitor was not able to tolerate due to incontinence
CKD stage IIIb.
Monitor renal function with diuresis.
COPD/asthma
No evidence for exacerbation.
Continue preadmission inhaled corticosteroids and long/short acting bronchodilators.
Bilateral right greater than left lower extremity cellulitis, complicated with chronic lymphedema and dermatitis secondary to venous stasis.
Ultrasound/Doppler lower extremity negative for DVT
IV vancomycin.
Wound care.
Bilateral right greater than left breast cellulitis with excoriation. Wound care.
Type 2 diabetes.
Obesity
Dyslipidemia
Basal bolus protocol.
Serial Accu-Cheks.
Carbohydrate controlled diet.
On repaglinide as needed prior to admission.
Anticipated Discharge: 24 - 48 hours
Subjective/Interval History
-
Date of Service: October 21, 2023
Objective Data
-
Labs:
Laboratory Results
10/21/23
04:50
Sodium 139
Potassium 4.0
Chloride 102
Carbon Dioxide 30
BUN 75 H
Creatinine 1.7 H
Glucose 88
Calcium 8.6
Vital Signs:
Vital Signs
Temp Pulse Resp BP Pulse Ox
97.7 F 64 20 119/52 93
10/21/23 15:55 10/21/23 16:14 10/21/23 15:55 10/21/23 16:14 10/21/23 16:09
I&O
10/20/23 10/21/23 10/22/23
06:59 06:59 06:59
Intake Total 360 / 360
Output Total 450 / 450
Balance -90 / -90
Physical Exam
-
General: Well Developed and No Apparent Distress
HEENT: Normocephalic, Atraumatic and Moist Mucous Membranes
Respiratory: Clear to Auscultation
Cardiac: Regular Rhythm and S1/S2; Negative Murmur, Rub or Gallop
GI: Soft, Nontender, Nondistended and Normal Bowel Sounds; Negative Organomegaly
Rectal: Deferred by Provider
Musculoskeletal: No Clubbing, No Cyanosis and No Edema
Skin: Negative Rash
Neuro: Nonfocal/Grossly Intact
[2023-10-21 21:22] LABS: Glucose - Point of Care 104 mg/dl (70-99)
[2023-10-21] MEDS: LIPITOR 20 MG PO (21:25)
[2023-10-22 03:21] VITALS: BP 137/58
[2023-10-22 05:17] VITALS: BMI 44.7
[2023-10-22 05:41] LABS: % Basophils 0.6 % (0-2); % Eosinophils 12.5 % (0-6); % Immature Granulocytes 0.4 % (0-0.5); % Lymphocytes 10.4 % (20.5-51.1); % Monocytes 10.6 % (1.7-9.3); % Neutrophils 65.5 % (42.2-75.2); Absolute Eosinophils 0.9 10^3/uL (0-0.7); Absolute Lymphocytes 0.7 10^3/uL (1.2-3.4); Absolute Monocytes 0.7 10^3/uL (0.1-0.6); Absolute Neutrophils 4.5 10^3/uL (1.4-6.5); Hemoglobin 9.2 g/dL (12.0-16.0); Mean Corp Hgb Conc. 30.7 g/dL (33.0-37.0); Mean Corpuscular Hgb 26.9 pg (27.0-31.0); Mean Corpuscular Volume 87.7 fL (81.0-99.0); Mean Platelet Volume 9.5 fL (7.4-10.4); Nucleated Red Blood Cells % 0 %; Platelet Count 225 10^3/uL (130-400); Red Blood Cell Count 3.42 10^6/uL (4.20-5.40); Red Cell Dist. Width 18.1 % (11.5-14.5); White Blood Cell Count 6.8 10^3/uL (4.8-10.8)
[2023-10-22 06:04] LABS: Vancomycin Random 18.3 ug/ml
[2023-10-22 06:06] LABS: Blood Urea Nitrogen 74 mg/dl (7-17); Calcium 8.7 mg/dl (8.4-10.2); Carbon Dioxide 30 mmol/L (22-30); Chloride 101 mmol/L (98-107); Estimated Creatinine Clearance 32 ml/min; Glucose 89 mg/dl (70-99); Potassium 3.9 mmol/L (3.5-5.1); Sodium 138 mmol/L (135-145); eGFR 30.13
[2023-10-22 07:21] LABS: Glucose - Point of Care 101 mg/dl (70-99)
[2023-10-22 07:35] VITALS: BP 143/62
[2023-10-22] MEDS: ADVAIR HFA 115/21 MCG INHALER 2 PUFF INH ×2 (07:38→20:16)
--- NOTE | 2023-10-22 08:27 | PHA.VAN.FU ---
Vancomycin Assessment / Plan
- Assessment
Renal Function: Stable
WBC's are: WNL
In the past 24 hrs, patient has been: Afebrile
- Assessment - Therapeutic Drug Monitoring
Random Level: 18.3 - drawn ~16.5H after previous dose of 1g
- Dosing Plan
Dosing by Level: Hold off on dosing today
- Monitoring Plan
Random Level: 10/22 0600 to trend clearance
- Follow Up
Pharmacy will continue to follow.
Vancomycin Follow UP
- -
Patient Age: 78
Patient Sex: Female
Vancomycin Day #: 3
Indication: Skin And Soft Tissue
Requesting Provider: Dr. Knight
Pertinent Antimicrobial Allergies:
ceftriaxone [From Rocephin] - Rash 08/28/23 admission
08/28/23 admission. Drug rash - suspect due to ceftriaxone. Now discontinued. Rash is improving on Zyrtec and prednisone. Pt had tolerated ceftriaxone back 2022 admission.
cefuroxime - facial droop,lip swell/Margie cefepime, cefazolin
pt interview: pt stated she experienced facial droop and lip swelling. Found allergy listed on external medical summary report also. Pt stated occurred a few years ago. 08/28/23 admission pt developed rash to ceftriaxone. 06/2022 admission tolerated 7
days of ceftriaxone. 02/2023 admission tolerated 6 days cefepime 03/2023 admission tolerated course of cefazolin
levofloxacin - facial droop, rash, numbness
pt interview: pt stated she experienced facial droop, rash and numbness. Found allergy listed on external medical summary report also. Pt stated occurred a few years ago.
Height / Weight:
Height 5 ft 3 in
Actual Weight 114.39 kg
Pertinent Past Medical History: BMI ~44, CKD III (baseline SCR 1.5-2), COPD (home O2), DM 2
- Vital Signs / Lab Results
Temp Pulse Resp BP Pulse Ox
97.7 F 66 16 137/58 97
10/22/23 03:21 10/22/23 07:43 10/22/23 07:43 10/22/23 03:21 10/22/23 07:43
Lab Results - Hematology
10/20/23 10/21/23 10/22/23
10:27 04:50 05:01
WBC 9.3 6.7 6.8
Lab Results - Chemistry
10/20/23 10/21/23 10/22/23
10:27 04:50 05:01
BUN 76 H 75 H 74 H
Creatinine 1.7 H 1.7 H 1.7 H
Estimated Creat Clear -2 32 32
Albumin 3.8
10/20/23
10:27
Lactic Acid 2.0
Microbiology Results
10/20/23 10:34 Blood Culture - Preliminary
Blood/Venous No Growth in 24 hours- Final report to follow
10/20/23 10:27 Blood Culture - Preliminary
Blood/Venous No Growth in 24 hours- Final report to follow
Therapeutic Drug Monitoring
Random Vancomycin 18.3 ug/ml 10/22/23 05:01
[2023-10-22] MEDS: NOVOLOG FLEXPEN-LOW RESISTANCE SC (08:30)
[2023-10-22] MEDS: TOPROL XL 25 MG PO (08:38)
[2023-10-22] MEDS: APRESOLINE 50 MG PO ×2 (08:38→20:53)
[2023-10-22] MEDS: HEPARIN 5000 UNITS SC ×2 (08:38→19:53)
[2023-10-22] MEDS: IMDUR (EXTENDED RELEASE) 30 MG PO (08:38)
[2023-10-22] MEDS: ASPIR LOW (ENTERIC COATED) 81 MG PO (08:38)
[2023-10-22] MEDS: THERAGRAN 1 TABLET PO (08:38)
[2023-10-22] MEDS: LASIX 80 MG IV (08:39)
[2023-10-22] MEDS: LIDOCAINE 4% PATCH 2 PATCH TOPICAL (08:39)
[2023-10-22] MEDS: LAC HYDRIN, AM LACTIN LOTION 1 APPLIC TOPICAL ×2 (08:40→19:54)
[2023-10-22] MEDS: DESENEX/MITRAZOL/ZEASORB 1 APPLIC TOPICAL ×2 (08:40→19:53)
[2023-10-22] MEDS: HYDROPHOR 1 APPLIC TOPICAL (08:41)
--- NOTE | 2023-10-22 09:40 | CM ---
Met with patient at bedside; initial assessment completed
Pharmacy verified: [facility], [facility]
Patient lives with daughter and son in a multi-level home; 1 step to enter; patient lives on the 1st floor; ambulates to powder room for toileting; unable to go up stairs to bathe in tub/shower; sleeps in a recliner; would like to get a hospital bed
PLOF: needs assistance with ADLs; ambulates with a rolling walker to the bathroom for toileting
SNF/Rehab/Home Health utilization history: Recently discharged from [facility]; was home a week before admitted to hospital
Transportation: to be determined; need to address with family
PT Recommended Home Health for PT; referral sent to [facility] liaison via [place] Text
Plan: discharge to home with home health services when medically stable
--- NOTE | 2023-10-22 10:46 | PN.CDI ---
CDI
- -
CDI:
Physician Documentation Request
Admit Date: 10/20/23 16:20
Dear Doctor Antonia,
10/20 WOCN note states 'patient admitted with stage 2, sacrum'
Physician documentation of the type and location of wounds is required for compliant documentation. Based on the above clinical findings and your assessment, please provide the following in your progress note:
1. Location of the ulcer/wound, including laterality.
2. Type (etiology) of ulcer/wound:
- Traumatic wound
- Pressure (decubitus) ulcer
- Other
Use of terms such as suspected, likely, concern for, or probable (associated with a specific diagnosis that is being evaluated, monitored, or treated as if it exists) are acceptable and can be coded in the inpatient setting, when documented at the
time of discharge.
Thank you,
Linette Kaur RN, BSN
CDI Specialist
tiger text
Please use your independent medical judgment in providing your response.
*Source: National Pressure Ulcer Advisory Panel (NPUAP)
[2023-10-22 11:19] LABS: Glucose - Point of Care 191 mg/dl (70-99)
[2023-10-22] MEDS: NOVOLOG FLEXPEN-LOW RESISTANCE 1 UNITS SC ×2 (13:08→17:47)
[2023-10-22 16:00] VITALS: BP 97/49
--- NOTE | 2023-10-22 16:15 | VNURNOTE ---
Home Health Liaison met with patient at 1245 to discuss [facility] nurse/therapy, visits, schedule and homebound status. Patient is agreeable and understands that visits at home will be 2-3 x per week to assess and teach medical management. Patient has a
scale and is able to log daily weight.
[facility] brochure provided with contact information. Patient is aware that [facility] will contact her for start of care in 1-2 days after discharge from .
[facility] referral completed in Care Port.
Patient discussed issues with her current portable O2 tanks at home. She thinks they leak and have been empty.
Call to [facility] to inquire about portable oxygen concentrator and having service personnel check tanks for leakage.
In order for portable concentrator, Patient will need to be tested and documentation faxed to [facility].
--- NOTE | 2023-10-22 16:25 | W.PN.HOSP.TC ---
Today's Communication/Plan
-
Continue IV diuresis
Add metolazone
Follow renal function
Continue IV antibiotics.
Assessment / Plan
Assessment / Plan
IMPRESSION:
Patient patient with severe exertional dyspnea and hypoxemia
Acute on chronic hypoxic respiratory failure.
Chronic CHF mildly reduced EF.
Pulmonary hypertension.
Acute on chronic bilateral right greater than left lower extremity cellulitis complicated with chronic lymphedema/venous stasis dermatitis.
Bilateral breast cellulitis with skin excoriation.
Reported dysphagia
Conditions prior to admission close
CHF mildly reduced EF
Multiple hospitalizations for above
CKD stage IIIb baseline creatinine 1.5-2
Chronic hypoxic respiratory failure on home O2 at 2 L nasal cannula.
Asthma/COPD.
Essential hypertension
Dyslipidemia
Diabetes type 2 [id number]
Obstructive sleep apnea.
Prior history of DVT.
Morbid obesity BMI 45.
Chronic lymphedema with venous stasis dermatitis.
History of medications and dietary noncompliance.
Stage II sacral wound secondary to pressure
PLAN:
Acute CHF mildly reduced EF.
Pulmonary hypertension
Suspect cardiorenal state.
ECHO 10/01/23: EF 45 to 50%, global hypokinesis, moderate to severe concentric LVH, stage II diastolic dysfunction, mildly dilated RV, mitral sclerosis, mild to moderate , peak/mean gradients 26/18 mmHg, mild AR, mild to moderate TR, PAP 60 to 65
mmHg
Initiate IV diuresis Lasix 80 mg IV twice daily.
Monitor daily weight
Dry weight at the time of prior discharge 112.5 kg
Monitor renal function with diuresis.
Add metolazone 5 mg
Consider cardiology consultation.
Follow-up response to diuresis
Consider further evaluation with VQ scan (severe pulmonary hypertension/hypoxia)
Continue preadmission regimen including metoprolol, Imdur, hydralazine.
GDMT with prior consideration of SGLT2 inhibitor was not able to tolerate due to incontinence
CKD stage IIIb.
Monitor renal function with diuresis.
COPD/asthma
No evidence for exacerbation.
Continue preadmission inhaled corticosteroids and long/short acting bronchodilators.
Bilateral right greater than left lower extremity cellulitis, complicated with chronic lymphedema and dermatitis secondary to venous stasis.
Ultrasound/Doppler lower extremity negative for DVT
IV vancomycin.
Wound care.
Bilateral right greater than left breast cellulitis with excoriation. Wound care.
Type 2 diabetes.
Obesity
Dyslipidemia
Basal bolus protocol.
Serial Accu-Cheks.
Carbohydrate controlled diet.
On repaglinide as needed prior to admission.
Anticipated Discharge: 24 - 48 hours
Subjective/Interval History
-
Date of Service: October 22, 2023
Objective Data
-
Labs:
Laboratory Results
10/22/23
05:01
WBC 6.8
Hgb 9.2 L
Hct 30.0 L
Plt Count 225
Sodium 138
Potassium 3.9
Chloride 101
Carbon Dioxide 30
BUN 74 H
Creatinine 1.7 H
Glucose 89
Calcium 8.7
Vital Signs:
Vital Signs
Temp Pulse Resp BP Pulse Ox
97.4 F 64 18 97/49 96
10/22/23 16:00 10/22/23 16:00 10/22/23 16:00 10/22/23 16:00 10/22/23 16:00
I&O
10/21/23 10/22/23 10/23/23
06:59 06:59 06:59
Intake Total 360 / 360 1620 / 1620
Output Total 450 / 450 500 / 500
Balance -90 / -90 1120 / 1120
Physical Exam
-
General: Well Developed and No Apparent Distress
HEENT: Normocephalic, Atraumatic and Moist Mucous Membranes
Respiratory: Clear to Auscultation
Cardiac: Regular Rhythm and S1/S2; Negative Murmur, Rub or Gallop
GI: Soft, Nontender, Nondistended and Normal Bowel Sounds; Negative Organomegaly
Rectal: Deferred by Provider
Musculoskeletal: No Clubbing, No Cyanosis and No Edema
Skin: Negative Rash
Neuro: Nonfocal/Grossly Intact
[2023-10-22 16:51] LABS: Glucose - Point of Care 167 mg/dl (70-99)
[2023-10-22] MEDS: LASIX IV (17:46)
[2023-10-22 19:54] VITALS: BP 99/62
[2023-10-22] MEDS: LIPITOR 20 MG PO (20:54)
[2023-10-22 21:40] LABS: Glucose - Point of Care 119 mg/dl (70-99)
[2023-10-22 23:33] VITALS: BP 147/68
[2023-10-23] VITALS (7 sets, daily range): BP systolic 106–146; BP diastolic 49–66; PULSE 60; O2SAT 96; BMI 45.7
[2023-10-23 05:35] LABS: Vancomycin Random 15.1 ug/ml
--- NOTE | 2023-10-23 07:47 | PHA.VAN.FU ---
Vancomycin Assessment / Plan
- Assessment
Renal Function: No New Labs Today
In the past 24 hrs, patient has been: Afebrile
- Assessment - Therapeutic Drug Monitoring
Random Level: 15.1 ( last dose of vanco was 1000 mg 10/20 12:26)
Calculated half life (H): ~ 86 hours based on last 2 random level
- Dosing Plan
Continue: dose by random level
Dosing by Level: Hold off on dosing today
- Monitoring Plan
Random Level: 10/23 0600
- Follow Up
Pharmacy will continue to follow.
Vancomycin Follow UP
- -
Patient Age: 78
Patient Sex: Female
Vancomycin Day #: 4
Indication: Skin And Soft Tissue
Requesting Provider: Dr. Knight
Pertinent Antimicrobial Allergies:
ceftriaxone [From Rocephin] - Rash 08/28/23 admission
08/28/23 admission. Drug rash - suspect due to ceftriaxone. Now discontinued. Rash is improving on Zyrtec and prednisone. Pt had tolerated ceftriaxone back 2022 admission.
cefuroxime - facial droop,lip swell/Margie cefepime, cefazolin
pt interview: pt stated she experienced facial droop and lip swelling. Found allergy listed on external medical summary report also. Pt stated occurred a few years ago. 08/28/23 admission pt developed rash to ceftriaxone. 06/2022 admission tolerated 7
days of ceftriaxone. 02/2023 admission tolerated 6 days cefepime 03/2023 admission tolerated course of cefazolin
levofloxacin - facial droop, rash, numbness
pt interview: pt stated she experienced facial droop, rash and numbness. Found allergy listed on external medical summary report also. Pt stated occurred a few years ago.
Height / Weight:
Height 5 ft 3 in
Actual Weight 117.084 kg
Pertinent Past Medical History: BMI ~44, CKD III (baseline SCR 1.5-2), COPD (home O2), DM 2
- Vital Signs / Lab Results
Temp Pulse Resp BP Pulse Ox
97.6 F 64 20 106/64 97
10/23/23 03:46 10/23/23 03:46 10/23/23 03:46 10/23/23 03:46 10/23/23 03:46
Lab Results - Hematology
10/20/23 10/21/23 10/22/23
10:27 04:50 05:01
WBC 9.3 6.7 6.8
Lab Results - Chemistry
10/20/23 10/21/23 10/22/23
10:27 04:50 05:01
BUN 76 H 75 H 74 H
Creatinine 1.7 H 1.7 H 1.7 H
Estimated Creat Clear -2 32 32
Albumin 3.8
10/20/23
10:27
Lactic Acid 2.0
Microbiology Results
10/20/23 10:34 Blood Culture - Preliminary
Blood/Venous No Growth in 48 hours- Final report to follow
10/20/23 10:27 Blood Culture - Preliminary
Blood/Venous No Growth in 48 hours- Final report to follow
Therapeutic Drug Monitoring
Random Vancomycin 15.1 ug/ml 10/23/23 04:48
[2023-10-23] MEDS: ADVAIR HFA 115/21 MCG INHALER 2 PUFF INH ×2 (07:50→19:27)
[2023-10-23 07:54] LABS: Glucose - Point of Care 104 mg/dl (70-99)
[2023-10-23] MEDS: LIDOCAINE 4% PATCH 2 PATCH TOPICAL (08:02)
[2023-10-23] MEDS: HEPARIN 5000 UNITS SC ×2 (08:03→19:56)
[2023-10-23] MEDS: ASPIR LOW (ENTERIC COATED) 81 MG PO (08:04)
[2023-10-23] MEDS: THERAGRAN 1 TABLET PO (08:04)
[2023-10-23] MEDS: NOVOLOG FLEXPEN-LOW RESISTANCE SC ×3 (08:08→16:09)
[2023-10-23] MEDS: IMDUR (EXTENDED RELEASE) 30 MG PO (08:16)
[2023-10-23] MEDS: TOPROL XL 25 MG PO (08:16)
[2023-10-23] MEDS: APRESOLINE 50 MG PO (08:16)
[2023-10-23] MEDS: LASIX 80 MG IV ×2 (08:17→15:58)
[2023-10-23] MEDS: LAC HYDRIN, AM LACTIN LOTION 1 APPLIC TOPICAL ×2 (08:17→19:58)
[2023-10-23] MEDS: HYDROPHOR 1 APPLIC TOPICAL (08:18)
[2023-10-23] MEDS: DESENEX/MITRAZOL/ZEASORB 1 APPLIC TOPICAL ×2 (08:18→19:56)
[2023-10-23 11:40] LABS: Glucose - Point of Care 140 mg/dl (70-99)
[2023-10-23] MEDS: TYLENOL 650 MG PO (12:48)
[2023-10-23 13:45] LABS: Blood Urea Nitrogen 73 mg/dl (7-17); Calcium 8.9 mg/dl (8.4-10.2); Carbon Dioxide 29 mmol/L (22-30); Chloride 99 mmol/L (98-107); Estimated Creatinine Clearance 37 ml/min; Glucose 108 mg/dl (70-99); Potassium 4.3 mmol/L (3.5-5.1); Sodium 136 mmol/L (135-145); eGFR 35.01
--- NOTE | 2023-10-23 14:06 | W.PN.HOSP.TC ---
Today's Communication/Plan
-
IV diuresis with with Lasix and addition of metolazone.
Follow daily weights and renal function.
VQ scan
IV vancomycin for acute on chronic bilateral right greater than left lower extremity cellulitis
Assessment / Plan
Assessment / Plan
IMPRESSION:
Patient patient with severe exertional dyspnea and hypoxemia
Acute on chronic hypoxic respiratory failure.
Chronic CHF mildly reduced EF.
Pulmonary hypertension.
Acute on chronic bilateral right greater than left lower extremity cellulitis complicated with chronic lymphedema/venous stasis dermatitis.
Bilateral breast cellulitis with skin excoriation.
Reported dysphagia
Conditions prior to admission close
CHF mildly reduced EF
Multiple hospitalizations for above
ALMA on CKD suspect cardiorenal state
CKD stage IIIb baseline creatinine 1.5-2
Chronic hypoxic respiratory failure on home O2 at 2 L nasal cannula.
Asthma/COPD.
Essential hypertension
Dyslipidemia
Diabetes type 2 [id number]
Obstructive sleep apnea.
Prior history of DVT.
Morbid obesity BMI 45.
Chronic lymphedema with venous stasis dermatitis.
History of medications and dietary noncompliance.
Stage II sacral wound secondary to pressure
PLAN:
Acute CHF mildly reduced EF.
Pulmonary hypertension
Suspect cardiorenal state.
ECHO 10/01/23: EF 45 to 50%, global hypokinesis, moderate to severe concentric LVH, stage II diastolic dysfunction, mildly dilated RV, mitral sclerosis, mild to moderate , peak/mean gradients 26/18 mmHg, mild AR, mild to moderate TR, PAP 60 to 65
mmHg
Continue IV diuresis Lasix 80 mg IV twice daily.
Add metolazone 5 mg on 10/22
Monitor daily weight
Dry weight at the time of prior discharge 112.5 kg
Monitor renal function with diuresis.
Add metolazone 5 mg
Consider cardiology consultation.
Continue preadmission regimen including metoprolol, Imdur, hydralazine.
GDMT with prior consideration of SGLT2 inhibitor was not able to tolerate due to incontinence
ALMA on CKD suspect cardiorenal state
Creatinine improving 1.7�1.5 with diuresis
CKD stage IIIb.
Chronic hypoxic respiratory failure, multifactorial. On home O2 at 2 L.
Patient required up to 6 L upon admission and remains with significant exertional dyspnea able to ambulate about 20 feet on PT evaluation.
Patient reports having great difficulty opening whilst on her current oxygen tank. Case management consultation appreciated for assessment and set up with oxygen vendor.
Continue titrate O2 as tolerated
Given worsening of hypoxia, minimal response to diuresis, severe pulmonary hypertension there is a concern for thromboembolic disease.
Most recent lower extremity Doppler negative for DVT.
Unable to perform CT angiogram given abnormal renal function.
Will order VQ scan.
COPD/asthma
No evidence for exacerbation.
Continue preadmission inhaled corticosteroids and long/short acting bronchodilators.
Bilateral right greater than left lower extremity cellulitis, complicated with chronic lymphedema and dermatitis secondary to venous stasis.
Ultrasound/Doppler lower extremity negative for DVT
IV vancomycin.
Wound care.
Bilateral right greater than left breast cellulitis with excoriation. Wound care.
Type 2 diabetes.
Hemoglobin A1c 5.4
Obesity
Dyslipidemia
Basal bolus protocol.
Serial Accu-Cheks.
Carbohydrate controlled diet.
On repaglinide as needed prior to admission.
Anticipated Discharge: 24 - 48 hours
Subjective/Interval History
-
Date of Service: October 23, 2023
Objective Data
-
Labs:
Laboratory Results
10/23/23
12:53
Sodium 136
Potassium 4.3
Chloride 99
Carbon Dioxide 29
BUN 73 H
Creatinine 1.5 H
Glucose 108 H
Calcium 8.9
Vital Signs:
Vital Signs
Temp Pulse Resp BP Pulse Ox
97.3 F 61 20 121/49 96
10/23/23 11:20 10/23/23 11:20 10/23/23 11:20 10/23/23 11:20 10/23/23 11:20
I&O
10/22/23 10/23/23 10/24/23
06:59 06:59 06:59
Intake Total 1620 / 1620 540 / 540
Output Total 500 / 500 300 / 300
Balance 1120 / 1120 240 / 240
Physical Exam
-
General: Well Developed and No Apparent Distress
HEENT: Normocephalic, Atraumatic and Moist Mucous Membranes
Respiratory: Clear to Auscultation
Cardiac: Regular Rhythm and S1/S2; Negative Murmur, Rub or Gallop
GI: Soft, Nontender, Nondistended and Normal Bowel Sounds; Negative Organomegaly
Rectal: Deferred by Provider
Musculoskeletal: No Clubbing, No Cyanosis and No Edema
Skin: Negative Rash
Neuro: Nonfocal/Grossly Intact
[2023-10-23] MEDS: ZAROXOLYN 5 MG PO (15:12)
--- NOTE | 2023-10-23 15:38 | CM ---
met with patient at bedside.she is on 3 liters nc o2.contr iv lasix,on iv vanco for bl le cellulitis.patient states she is not able to open valves no o2 tanks beacuse she does not have the strength to do so.she is also saying the o2 tanks leak.i
have spoken to thor at [facility] who visited the patient and suggested a POC. I texted doctor to ask if he could write a progress note indicating need for poc.i faxed script and progress note to [facility].Plan dc home with [facility] when stable for discharge.
[2023-10-23 16:09] LABS: Glucose - Point of Care 128 mg/dl (70-99)
[2023-10-23] MEDS: LIPITOR 20 MG PO (21:07)
[2023-10-23] MEDS: APRESOLINE PO (21:07)
[2023-10-23 21:18] LABS: Glucose - Point of Care 109 mg/dl (70-99)
[2023-10-24 03:57] VITALS: BP 138/58
[2023-10-24 05:59] VITALS: BMI 45.9
[2023-10-24 07:25] VITALS: BP 137/50
[2023-10-24 07:26] LABS: Glucose - Point of Care 98 mg/dl (70-99)
[2023-10-24] MEDS: ADVAIR HFA 115/21 MCG INHALER 2 PUFF INH ×2 (07:32→19:38)
[2023-10-24 08:32] LABS: Vancomycin Random 11.9 ug/ml
[2023-10-24 08:37] LABS: Blood Urea Nitrogen 74 mg/dl (7-17); Calcium 8.7 mg/dl (8.4-10.2); Carbon Dioxide 31 mmol/L (22-30); Chloride 99 mmol/L (98-107); Estimated Creatinine Clearance 35 ml/min; Glucose 83 mg/dl (70-99); Sodium 137 mmol/L (135-145)
--- NOTE | 2023-10-24 09:02 | PHA.VAN.FU ---
Vancomycin Assessment / Plan
- Assessment
Renal Function: Stable
In the past 24 hrs, patient has been: Afebrile
- Assessment - Therapeutic Drug Monitoring
Random Level: R = 11.9. Last Vanco dose was 1gm 10/20 at 1226.
- Dosing Plan
Continue: Dose by level
Dosing by Level: Re-dose today (Vanc 1gm)
- Monitoring Plan
Random Level: 10/24 AM
- Follow Up
Pharmacy will continue to follow.
Vancomycin Follow UP
- -
Patient Age: 78
Patient Sex: Female
Vancomycin Day #: 5
Indication: Skin And Soft Tissue
Requesting Provider: Dr. Knight
Pertinent Antimicrobial Allergies:
ceftriaxone [From Rocephin] - Rash 08/28/23 admission
08/28/23 admission. Drug rash - suspect due to ceftriaxone. Now discontinued. Rash is improving on Zyrtec and prednisone. Pt had tolerated ceftriaxone back 2022 admission.
cefuroxime - facial droop,lip swell/Margie cefepime, cefazolin
pt interview: pt stated she experienced facial droop and lip swelling. Found allergy listed on external medical summary report also. Pt stated occurred a few years ago. 08/28/23 admission pt developed rash to ceftriaxone. 06/2022 admission tolerated 7
days of ceftriaxone. 02/2023 admission tolerated 6 days cefepime 03/2023 admission tolerated course of cefazolin
levofloxacin - facial droop, rash, numbness
pt interview: pt stated she experienced facial droop, rash and numbness. Found allergy listed on external medical summary report also. Pt stated occurred a few years ago.
Height / Weight:
Height 5 ft 3 in
Actual Weight 117.594 kg
Pertinent Past Medical History: BMI ~44, CKD III (baseline SCR 1.5-2), COPD (home O2), DM 2
- Vital Signs / Lab Results
Temp Pulse Resp BP Pulse Ox
97.8 F 51 16 137/50 96
04/27/24 07:25 10/24/23 07:36 10/24/23 07:36 10/24/23 07:25 10/24/23 07:36
Lab Results - Hematology
10/22/23
05:01
WBC 6.8
Lab Results - Chemistry
10/22/23 10/23/23 10/24/23
05:01 12:53 06:15
BUN 74 H 73 H 74 H
Creatinine 1.7 H 1.5 H 1.6 H
Estimated Creat Clear 32 37 35
Microbiology Results
10/20/23 10:34 Blood Culture - Preliminary
Blood/Venous No Growth in 72 hours- Final report to follow
10/20/23 10:27 Blood Culture - Preliminary
Blood/Venous No Growth in 72 hours- Final report to follow
Therapeutic Drug Monitoring
Random Vancomycin 11.9 ug/ml 10/24/23 06:15
[2023-10-24] MEDS: NOVOLOG FLEXPEN-LOW RESISTANCE SC ×3 (09:04→17:00)
[2023-10-24] MEDS: IMDUR (EXTENDED RELEASE) 30 MG PO (09:07)
[2023-10-24] MEDS: APRESOLINE 50 MG PO ×2 (09:07→20:24)
[2023-10-24] MEDS: THERAGRAN 1 TABLET PO (09:10)
[2023-10-24] MEDS: ASPIR LOW (ENTERIC COATED) 81 MG PO (09:10)
[2023-10-24] MEDS: TOPROL XL 25 MG PO (09:10)
[2023-10-24] MEDS: HEPARIN 5000 UNITS SC ×2 (09:11→20:23)
[2023-10-24] MEDS: LIDOCAINE 4% PATCH 2 PATCH TOPICAL (09:11)
[2023-10-24] MEDS: HYDROPHOR 1 APPLIC TOPICAL (09:12)
[2023-10-24] MEDS: DESENEX/MITRAZOL/ZEASORB 1 APPLIC TOPICAL ×2 (09:12→20:23)
[2023-10-24] MEDS: LASIX 80 MG IV ×2 (09:14→17:09)
[2023-10-24] MEDS: LAC HYDRIN, AM LACTIN LOTION 1 APPLIC TOPICAL ×2 (09:16→20:24)
[2023-10-24 11:53] VITALS: BP 130/72
[2023-10-24 12:01] LABS: Glucose - Point of Care 142 mg/dl (70-99)
[2023-10-24] MEDS: VANCOCIN 200 IV (12:27)
--- NOTE | 2023-10-24 13:03 | W.PN.HOSP.TC ---
Today's Communication/Plan
-
wean o2
cont diuresis, monitor I&Os, daily weights
Assessment / Plan
Assessment / Plan
IMPRESSION:
Patient patient with severe exertional dyspnea and hypoxemia
Acute on chronic hypoxic respiratory failure.
Chronic CHF mildly reduced EF.
Pulmonary hypertension.
Acute on chronic bilateral right greater than left lower extremity cellulitis complicated with chronic lymphedema/venous stasis dermatitis.
Bilateral breast cellulitis with skin excoriation.
Reported dysphagia
Conditions prior to admission close
CHF mildly reduced EF
Multiple hospitalizations for above
ALMA on CKD suspect cardiorenal state
CKD stage IIIb baseline creatinine 1.5-2
Chronic hypoxic respiratory failure on home O2 at 2 L nasal cannula.
Asthma/COPD.
Essential hypertension
Dyslipidemia
Diabetes type 2 [id number]
Obstructive sleep apnea.
Prior history of DVT.
Morbid obesity BMI 45.
Chronic lymphedema with venous stasis dermatitis.
History of medications and dietary noncompliance.
Stage II sacral wound secondary to pressure
PLAN:
Acute CHF mildly reduced EF.
Pulmonary hypertension
Suspect cardiorenal state.
ECHO 10/01/23: EF 45 to 50%, global hypokinesis, moderate to severe concentric LVH, stage II diastolic dysfunction, mildly dilated RV, mitral sclerosis, mild to moderate , peak/mean gradients 26/18 mmHg, mild AR, mild to moderate TR, PAP 60 to 65
mmHg
Continue IV diuresis Lasix 80 mg IV twice daily.
Add metolazone 5 mg on 10/22
Monitor daily weight
Dry weight at the time of prior discharge 112.5 kg
Monitor renal function with diuresis.
Add metolazone 5 mg
Consider cardiology consultation.
Continue preadmission regimen including metoprolol, Imdur, hydralazine.
GDMT with prior consideration of SGLT2 inhibitor was not able to tolerate due to incontinence
ALMA on CKD suspect cardiorenal state
Creatinine improving 1.7�1.5 with diuresis
CKD stage IIIb.
Chronic hypoxic respiratory failure, multifactorial. On home O2 at 2 L.
Patient required up to 6 L upon admission and remains with significant exertional dyspnea able to ambulate about 20 feet on PT evaluation.
Patient reports having great difficulty opening whilst on her current oxygen tank. Case management consultation appreciated for assessment and set up with oxygen vendor.
Continue titrate O2 as tolerated
Given worsening of hypoxia, minimal response to diuresis, severe pulmonary hypertension there is a concern for thromboembolic disease.
Most recent lower extremity Doppler negative for DVT.
Unable to perform CT angiogram given abnormal renal function.
VQ scan with low prob of PE;
COPD/asthma
No evidence for exacerbation.
Continue preadmission inhaled corticosteroids and long/short acting bronchodilators.
Bilateral right greater than left lower extremity cellulitis, complicated with chronic lymphedema and dermatitis secondary to venous stasis.
Ultrasound/Doppler lower extremity negative for DVT
IV vancomycin.
Wound care.
Bilateral right greater than left breast cellulitis with excoriation. Wound care.
Type 2 diabetes.
Hemoglobin A1c 5.4
Obesity
Dyslipidemia
Basal bolus protocol.
Serial Accu-Cheks.
Carbohydrate controlled diet.
On repaglinide as needed prior to admission.
Update: 10/23 - Cont diuresis. - worsening hypoxia/symptoms upon ambulation. ECHO indicative of pulmonary hypertension although due to fluid overload, will need to diurese aggressively. Goal standard is right heart cath although cannot perform due
to ALMA. VQ scan unable to adequately evaluate level of pulm hypertension and low probability of PE on scan. Dry weight at approximately 111 kg; 117.5 today. Cont diuresis
Anticipated Discharge: > 48 hours
Subjective/Interval History
-
Date of Service: October 24, 2023
Slightly hypoxic, exertional shortness of breath upon movement. Continue weaning off O2. Does say it feels better than yesterday
Objective Data
-
Labs:
Laboratory Results
10/24/23
06:15
Sodium 137
Potassium 4.0
Chloride 99
Carbon Dioxide 31 H
BUN 74 H
Creatinine 1.6 H
Glucose 83
Calcium 8.7
Vital Signs:
Vital Signs
Temp Pulse Resp BP Pulse Ox
97.7 F 64 20 130/72 92
10/24/23 11:53 10/24/23 11:53 10/24/23 11:53 10/24/23 11:53 10/24/23 11:53
I&O
10/23/23 10/24/23 10/25/23
06:59 06:59 06:59
Intake Total 540 / 540 480 / 480
Output Total 300 / 300 1350 / 1350
Balance 240 / 240 -870 / -870
Review of Systems
-
Constitutional: Denies Fever
EENT: Denies Sore Throat
Respiratory: Denies Cough
Abdomen/GI: Denies Nausea or Vomiting
Neuro: Denies Dizzy or Headache
Physical Exam
-
General: Well Developed and No Apparent Distress
HEENT: Normocephalic, Atraumatic and Moist Mucous Membranes
Respiratory: Clear to Auscultation
Cardiac: Regular Rhythm and S1/S2; Negative Murmur, Rub or Gallop
GI: Soft, Nontender, Nondistended and Normal Bowel Sounds; Negative Organomegaly
Rectal: Deferred by Provider
Musculoskeletal: No Clubbing, No Cyanosis and No Edema
Skin: Negative Rash
Neuro: Nonfocal/Grossly Intact
Data Reviewed
-
Diagnostic Radiology: Image personally visualized and interpreted and Report Reviewed by me
Labs: Labs Reviewed by me
[2023-10-24 15:25] VITALS: BP 130/56
[2023-10-24 16:47] LABS: Glucose - Point of Care 118 mg/dl (70-99)
[2023-10-24] MEDS: LIPITOR 20 MG PO (20:22)
[2023-10-24 21:54] LABS: Glucose - Point of Care 120 mg/dl (70-99)
[2023-10-24 23:47] VITALS: BP 134/60
[2023-10-25 05:52] VITALS: BMI 43.8
[2023-10-25] MEDS: ADVAIR HFA 115/21 MCG INHALER 2 PUFF INH ×2 (07:21→19:18)
[2023-10-25 07:25] VITALS: BP 144/60
[2023-10-25 08:03] LABS: Glucose - Point of Care 104 mg/dl (70-99)
[2023-10-25] MEDS: NOVOLOG FLEXPEN-LOW RESISTANCE SC ×2 (08:14→16:08)
[2023-10-25] MEDS: ASPIR LOW (ENTERIC COATED) 81 MG PO (08:15)
[2023-10-25] MEDS: DESENEX/MITRAZOL/ZEASORB 1 APPLIC TOPICAL ×2 (08:15→19:57)
[2023-10-25] MEDS: THERAGRAN 1 TABLET PO (08:15)
[2023-10-25] MEDS: IMDUR (EXTENDED RELEASE) 30 MG PO (08:15)
[2023-10-25] MEDS: LIDOCAINE 4% PATCH 2 PATCH TOPICAL (08:16)
[2023-10-25] MEDS: HEPARIN 5000 UNITS SC ×2 (08:17→19:58)
[2023-10-25] MEDS: APRESOLINE 50 MG PO ×2 (08:19→20:00)
[2023-10-25] MEDS: LASIX 80 MG IV ×2 (08:20→15:15)
[2023-10-25] MEDS: TOPROL XL 25 MG PO (08:20)
[2023-10-25] MEDS: LAC HYDRIN, AM LACTIN LOTION 1 APPLIC TOPICAL ×2 (08:22→20:12)
[2023-10-25] MEDS: KCL 20 MEQ PO (08:22)
[2023-10-25] MEDS: HYDROPHOR 1 APPLIC TOPICAL (08:23)
[2023-10-25 08:36] LABS: Hematocrit 29.7 % (37.0-47.0); Hemoglobin 9.2 g/dL (12.0-16.0); Mean Corpuscular Volume 87.1 fL (81.0-99.0); Mean Platelet Volume 9.3 fL (7.4-10.4); Platelet Count 231 10^3/uL (130-400); Red Blood Cell Count 3.41 10^6/uL (4.20-5.40); Red Cell Dist. Width 17.9 % (11.5-14.5); White Blood Cell Count 6.3 10^3/uL (4.8-10.8)
[2023-10-25 08:46] LABS: Vancomycin Random 16.8 ug/ml
[2023-10-25 09:11] LABS: ALT (SGPT) 15 U/L (0-35); AST (SGOT) 22 U/L (14-36); Albumin 3.5 g/dl (3.5-5.0); Alkaline Phosphatase 97 U/L (38-126); Blood Urea Nitrogen 72 mg/dl (7-17); Calcium 8.8 mg/dl (8.4-10.2); Carbon Dioxide 32 mmol/L (22-30); Chloride 98 mmol/L (98-107); Estimated Creatinine Clearance 39 ml/min; Glucose 89 mg/dl (70-99); Potassium 3.7 mmol/L (3.5-5.1); Sodium 136 mmol/L (135-145); Total Bilirubin 0.7 mg/dl (0.2-1.3); Total Protein 7.2 g/dl (6.3-8.2); eGFR 38.03
--- NOTE | 2023-10-25 09:20 | PHA.VAN.FU ---
Vancomycin Assessment / Plan
- Assessment
Renal Function: SCR Decreasing
WBC's are: Stable
In the past 24 hrs, patient has been: Afebrile
- Assessment - Therapeutic Drug Monitoring
Random Level: R = 16.8 ~ 17.5hrs post Vanc 1000mg
- Dosing Plan
Continue: Dose by level
Dosing by Level: Hold off on dosing today
- Monitoring Plan
Random Level: 10/25 AM
- Follow Up
Pharmacy will continue to follow.
Vancomycin Follow UP
- -
Patient Age: 78
Patient Sex: Female
Vancomycin Day #: 6
Indication: Skin And Soft Tissue
Requesting Provider: Dr. Knight
Pertinent Antimicrobial Allergies:
ceftriaxone [From Rocephin] - Rash 08/28/23 admission
08/28/23 admission. Drug rash - suspect due to ceftriaxone. Now discontinued. Rash is improving on Zyrtec and prednisone. Pt had tolerated ceftriaxone back 2022 admission.
cefuroxime - facial droop,lip swell/Margie cefepime, cefazolin
pt interview: pt stated she experienced facial droop and lip swelling. Found allergy listed on external medical summary report also. Pt stated occurred a few years ago. 08/28/23 admission pt developed rash to ceftriaxone. 06/2022 admission tolerated 7
days of ceftriaxone. 02/2023 admission tolerated 6 days cefepime 03/2023 admission tolerated course of cefazolin
levofloxacin - facial droop, rash, numbness
pt interview: pt stated she experienced facial droop, rash and numbness. Found allergy listed on external medical summary report also. Pt stated occurred a few years ago.
Height / Weight:
Height 5 ft 3 in
Actual Weight 112.122 kg
Pertinent Past Medical History: BMI ~44, CKD III (baseline SCR 1.5-2), COPD (home O2), DM 2
- Vital Signs / Lab Results
Temp Pulse Resp BP Pulse Ox
97.6 F 65 20 144/60 94
04/28/24 07:25 10/25/23 08:20 10/25/23 07:25 10/25/23 08:20 10/25/23 07:25
Lab Results - Hematology
10/25/23
07:53
WBC 6.3
Lab Results - Chemistry
10/23/23 10/24/23 10/25/23
12:53 06:15 07:53
BUN 73 H 74 H 72 H
Creatinine 1.5 H 1.6 H 1.4 H
Estimated Creat Clear 37 35 39
Albumin 3.5
Microbiology Results
10/20/23 10:34 Blood Culture - Preliminary
Blood/Venous No Growth in 4 days- Final report to follow
10/20/23 10:27 Blood Culture - Preliminary
Blood/Venous No Growth in 4 days- Final report to follow
Therapeutic Drug Monitoring
Random Vancomycin 16.8 ug/ml 10/25/23 07:53
[2023-10-25 11:22] VITALS: BP 118/55
[2023-10-25 11:41] LABS: Glucose - Point of Care 170 mg/dl (70-99)
[2023-10-25] MEDS: NOVOLOG FLEXPEN-LOW RESISTANCE 1 UNITS SC (11:54)
--- NOTE | 2023-10-25 12:20 | W.PN.HOSP.TC ---
Today's Communication/Plan
-
cont iv diuresis
monitor weights
Assessment / Plan
Assessment / Plan
IMPRESSION:
Patient patient with severe exertional dyspnea and hypoxemia
Acute on chronic hypoxic respiratory failure.
Chronic CHF mildly reduced EF.
Pulmonary hypertension.
Acute on chronic bilateral right greater than left lower extremity cellulitis complicated with chronic lymphedema/venous stasis dermatitis.
Bilateral breast cellulitis with skin excoriation.
Reported dysphagia
Conditions prior to admission close
CHF mildly reduced EF
Multiple hospitalizations for above
ALMA on CKD suspect cardiorenal state
CKD stage IIIb baseline creatinine 1.5-2
Chronic hypoxic respiratory failure on home O2 at 2 L nasal cannula.
Asthma/COPD.
Essential hypertension
Dyslipidemia
Diabetes type 2 [id number]
Obstructive sleep apnea.
Prior history of DVT.
Morbid obesity BMI 45.
Chronic lymphedema with venous stasis dermatitis.
History of medications and dietary noncompliance.
Stage II sacral wound secondary to pressure
PLAN:
Acute CHF mildly reduced EF.
Pulmonary hypertension
Suspect cardiorenal state.
ECHO 10/01/23: EF 45 to 50%, global hypokinesis, moderate to severe concentric LVH, stage II diastolic dysfunction, mildly dilated RV, mitral sclerosis, mild to moderate , peak/mean gradients 26/18 mmHg, mild AR, mild to moderate TR, PAP 60 to 65
mmHg
Continue IV diuresis Lasix 80 mg IV twice daily.
Add metolazone 5 mg on 10/22
Monitor daily weight
Dry weight at the time of prior discharge 112.5 kg
Monitor renal function with diuresis.
Add metolazone 5 mg
Consider cardiology consultation.
Continue preadmission regimen including metoprolol, Imdur, hydralazine.
GDMT with prior consideration of SGLT2 inhibitor was not able to tolerate due to incontinence
ALMA on CKD suspect cardiorenal state
Creatinine improving 1.7�1.5 with diuresis
CKD stage IIIb.
Chronic hypoxic respiratory failure, multifactorial. On home O2 at 2 L.
Patient required up to 6 L upon admission and remains with significant exertional dyspnea able to ambulate about 20 feet on PT evaluation.
Patient reports having great difficulty opening whilst on her current oxygen tank. Case management consultation appreciated for assessment and set up with oxygen vendor.
Continue titrate O2 as tolerated
Given worsening of hypoxia, minimal response to diuresis, severe pulmonary hypertension there is a concern for thromboembolic disease.
Most recent lower extremity Doppler negative for DVT.
Unable to perform CT angiogram given abnormal renal function.
VQ scan with low prob of PE;
COPD/asthma
No evidence for exacerbation.
Continue preadmission inhaled corticosteroids and long/short acting bronchodilators.
Bilateral right greater than left lower extremity cellulitis, complicated with chronic lymphedema and dermatitis secondary to venous stasis.
Ultrasound/Doppler lower extremity negative for DVT
IV vancomycin.
Wound care.
Bilateral right greater than left breast cellulitis with excoriation. Wound care.
Type 2 diabetes.
Hemoglobin A1c 5.4
Obesity
Dyslipidemia
Basal bolus protocol.
Serial Accu-Cheks.
Carbohydrate controlled diet.
On repaglinide as needed prior to admission.
Update: 10/23 - Cont diuresis. - worsening hypoxia/symptoms upon ambulation. ECHO indicative of pulmonary hypertension although due to fluid overload, will need to diurese aggressively. Goal standard is right heart cath although cannot perform due
to ALMA. VQ scan unable to adequately evaluate level of pulm hypertension and low probability of PE on scan. Dry weight at approximately 111 kg; 117.5 today. Cont diuresis
10/24 - cont diuresis - improvement in symptoms; Scr improving with diuresis. In the future - if not already worked up - patient may be candidate for RHC to evaluate PA pressures and possible initiation of PAH regimen if deemed appropriate candidate.
In the interim, continue aggressive IV diuresis
Anticipated Discharge: 24 - 48 hours
Subjective/Interval History
-
Date of Service: October 25, 2023
feels slightly better
Objective Data
-
Labs:
Laboratory Results
10/25/23
07:53
WBC 6.3
Hgb 9.2 L
Hct 29.7 L
Plt Count 231
Sodium 136
Potassium 3.7
Chloride 98
Carbon Dioxide 32 H
BUN 72 H
Creatinine 1.4 H
Glucose 89
Calcium 8.8
Total Bilirubin 0.7
AST 22
ALT 15
Alkaline Phosphatase 97
Vital Signs:
Vital Signs
Temp Pulse Resp BP Pulse Ox
97.5 F 61 20 118/55 93
10/25/23 11:22 10/25/23 11:22 10/25/23 11:22 10/25/23 11:22 10/25/23 11:22
I&O
10/24/23 10/25/23 10/26/23
06:59 06:59 06:59
Intake Total 480 / 480 840 / 840
Output Total 1350 / 1350 1000 / 1000 475 / 475
Balance -870 / -870 -160 / -160 -475 / -475
Review of Systems
-
Constitutional: Denies Fever
EENT: Denies Sore Throat
Respiratory: Denies Cough
Abdomen/GI: Denies Nausea or Vomiting
Neuro: Denies Dizzy or Headache
Physical Exam
-
General: Well Developed and No Apparent Distress
HEENT: Normocephalic, Atraumatic and Moist Mucous Membranes
Respiratory: Clear to Auscultation
Cardiac: Regular Rhythm and S1/S2; Negative Murmur, Rub or Gallop
GI: Soft, Nontender, Nondistended and Normal Bowel Sounds; Negative Organomegaly
Rectal: Deferred by Provider
Musculoskeletal: No Clubbing, No Cyanosis and No Edema
Skin: Negative Rash
Neuro: Nonfocal/Grossly Intact
Data Reviewed
-
Diagnostic Radiology: Image personally visualized and interpreted and Report Reviewed by me
Labs: Labs Reviewed by me
[2023-10-25 15:29] VITALS: BP 122/64
--- NOTE | 2023-10-25 15:58 | W.PN.UPDATE ---
Update Note
Progress Note Update
patient requires an adjustable hospital bed to alleviate pain, promote good body alignment, to prevent respiratory infections.Patient has chf and head of bed should be elevated more than 30 degrees.The hospital bed is medically necessary since these
requirements cannot be met in an ordinary bed.
--- NOTE | 2023-10-25 15:59 | CM ---
met with mojgan at bedside.patient with severe hypoxia,on 2 liter nc o2,bl le cellulitis on iv vanco,cont iv lasix.TT sent to dr orr snf sent her guidelines to write a note so patient an get a hospital bed at home.Plan dhvn following patient
for [facility].
[2023-10-25 16:06] LABS: Glucose - Point of Care 127 mg/dl (70-99)
[2023-10-25] MEDS: LIPITOR 20 MG PO (19:58)
[2023-10-25 21:48] LABS: Glucose - Point of Care 142 mg/dl (70-99)
[2023-10-25 23:35] VITALS: BP 124/59
[2023-10-26] MEDS: TYLENOL 650 MG PO (00:38)
[2023-10-26 06:00] VITALS: BMI 43.5
[2023-10-26 07:14] LABS: Glucose - Point of Care 98 mg/dl (70-99)
[2023-10-26] MEDS: ADVAIR HFA 115/21 MCG INHALER 2 PUFF INH ×2 (07:28→19:10)
[2023-10-26 07:41] LABS: Hematocrit 28.9 % (37.0-47.0); Hemoglobin 9.4 g/dL (12.0-16.0); Mean Corp Hgb Conc. 32.5 g/dL (33.0-37.0); Mean Corpuscular Hgb 27.9 pg (27.0-31.0); Mean Corpuscular Volume 85.8 fL (81.0-99.0); Mean Platelet Volume 9.5 fL (7.4-10.4); Platelet Count 235 10^3/uL (130-400); Red Blood Cell Count 3.37 10^6/uL (4.20-5.40); White Blood Cell Count 5.3 10^3/uL (4.8-10.8)
[2023-10-26 08:00] VITALS: BP 123/58
[2023-10-26 08:06] LABS: Vancomycin Random 14.6 ug/ml
[2023-10-26] MEDS: NOVOLOG FLEXPEN-LOW RESISTANCE SC ×3 (08:26→16:49)
--- NOTE | 2023-10-26 08:34 | PHA.VAN.FU ---
Vancomycin Assessment / Plan
- Assessment
Renal Function: SCR Decreasing
WBC's are: WNL
In the past 24 hrs, patient has been: Afebrile
- Assessment - Therapeutic Drug Monitoring
Random Level: 14.6
- Dosing Plan
Dosing by Level: Re-dose today (500mg on 10/25)
- Monitoring Plan
Random Level: 10/26 @0600
- Follow Up
Pharmacy will continue to follow.
Vancomycin Follow UP
- -
Patient Age: 78
Patient Sex: Female
Vancomycin Day #: 7
Indication: Skin And Soft Tissue
Requesting Provider: Dr. Knight
Pertinent Antimicrobial Allergies:
ceftriaxone [From Rocephin] - Rash 08/28/23 admission
08/28/23 admission. Drug rash - suspect due to ceftriaxone. Now discontinued. Rash is improving on Zyrtec and prednisone. Pt had tolerated ceftriaxone back 2022 admission.
cefuroxime - facial droop,lip swell/Margie cefepime, cefazolin
pt interview: pt stated she experienced facial droop and lip swelling. Found allergy listed on external medical summary report also. Pt stated occurred a few years ago. 08/28/23 admission pt developed rash to ceftriaxone. 06/2022 admission tolerated 7
days of ceftriaxone. 02/2023 admission tolerated 6 days cefepime 03/2023 admission tolerated course of cefazolin
levofloxacin - facial droop, rash, numbness
pt interview: pt stated she experienced facial droop, rash and numbness. Found allergy listed on external medical summary report also. Pt stated occurred a few years ago.
Height / Weight:
Height 5 ft 3 in
Actual Weight 111.357 kg
Pertinent Past Medical History: BMI ~44, CKD III (baseline SCR 1.5-2), COPD (home O2), DM 2
- Vital Signs / Lab Results
Temp Pulse Resp BP Pulse Ox
97.9 F 54 24 124/59 92
10/25/23 23:35 10/25/23 23:35 10/25/23 23:35 10/25/23 23:35 10/25/23 23:35
Lab Results - Hematology
10/25/23 10/26/23
07:53 06:52
WBC 6.3 5.3
Lab Results - Chemistry
10/23/23 10/24/23 10/25/23
12:53 06:15 07:53
BUN 73 H 74 H 72 H
Creatinine 1.5 H 1.6 H 1.4 H
Estimated Creat Clear 37 35 39
Albumin 3.5
Microbiology Results
10/20/23 10:34 Blood Culture - Final
Blood/Venous No Growth - Final Report
10/20/23 10:27 Blood Culture - Final
Blood/Venous No Growth - Final Report
Therapeutic Drug Monitoring
Random Vancomycin 14.6 ug/ml 10/26/23 06:52
[2023-10-26 08:58] LABS: ALT (SGPT) 14 U/L (0-35); AST (SGOT) 20 U/L (14-36); Albumin 3.3 g/dl (3.5-5.0); Alkaline Phosphatase 96 U/L (38-126); Blood Urea Nitrogen 69 mg/dl (7-17); Calcium 8.6 mg/dl (8.4-10.2); Carbon Dioxide 32 mmol/L (22-30); Chloride 98 mmol/L (98-107); Estimated Creatinine Clearance 38 ml/min; Glucose 87 mg/dl (70-99); Potassium 3.5 mmol/L (3.5-5.1); Sodium 138 mmol/L (135-145); Total Bilirubin 0.6 mg/dl (0.2-1.3); eGFR 38.03
[2023-10-26] MEDS: IMDUR (EXTENDED RELEASE) 30 MG PO (09:21)
[2023-10-26] MEDS: THERAGRAN 1 TABLET PO (09:22)
[2023-10-26] MEDS: TOPROL XL 25 MG PO (09:22)
[2023-10-26] MEDS: ASPIR LOW (ENTERIC COATED) 81 MG PO (09:22)
[2023-10-26] MEDS: DESENEX/MITRAZOL/ZEASORB 1 APPLIC TOPICAL ×2 (09:22→20:17)
[2023-10-26] MEDS: APRESOLINE 50 MG PO ×2 (09:22→20:18)
[2023-10-26] MEDS: HYDROPHOR 1 APPLIC TOPICAL (09:23)
[2023-10-26] MEDS: LAC HYDRIN, AM LACTIN LOTION 1 APPLIC TOPICAL ×2 (09:23→20:21)
[2023-10-26] MEDS: HEPARIN 5000 UNITS SC (09:24)
[2023-10-26] MEDS: LASIX 80 MG IV ×2 (09:24→17:21)
[2023-10-26] MEDS: LIDOCAINE 4% PATCH 2 PATCH TOPICAL (09:24)
[2023-10-26 11:15] LABS: Glucose - Point of Care 135 mg/dl (70-99)
[2023-10-26] MEDS: VANCOCIN HCL 500 MG 100 IV (11:22)
[2023-10-26 11:34] VITALS: BP 136/59; PULSE 61; O2SAT 95
[2023-10-26 14:32] VITALS: BP 133/57
--- NOTE | 2023-10-26 15:33 | W.PN.HOSP.TC ---
Today's Communication/Plan
-
Continue IV diuresis with plan to transition to oral Lasix in AM.
Last day for IV antibiotics.
Continue lower extremity wound care.
Discharge plan tentatively on 10/26
Assessment / Plan
Assessment / Plan
IMPRESSION:
Patient patient with severe exertional dyspnea and hypoxemia
Acute on chronic hypoxic respiratory failure.
Chronic CHF mildly reduced EF.
Pulmonary hypertension.
Acute on chronic bilateral right greater than left lower extremity cellulitis complicated with chronic lymphedema/venous stasis dermatitis.
Bilateral breast cellulitis with skin excoriation.
Reported dysphagia
Conditions prior to admission close
CHF mildly reduced EF
Multiple hospitalizations for above
ALMA on CKD suspect cardiorenal state
CKD stage IIIb baseline creatinine 1.5-2
Chronic hypoxic respiratory failure on home O2 at 2 L nasal cannula.
Asthma/COPD.
Essential hypertension
Dyslipidemia
Diabetes type 2 [id number]
Obstructive sleep apnea.
Prior history of DVT.
Morbid obesity BMI 45.
Chronic lymphedema with venous stasis dermatitis.
History of medications and dietary noncompliance.
Stage II sacral wound secondary to pressure
PLAN:
Acute CHF mildly reduced EF.
Pulmonary hypertension
Suspect cardiorenal state.
ECHO 10/01/23: EF 45 to 50%, global hypokinesis, moderate to severe concentric LVH, stage II diastolic dysfunction, mildly dilated RV, mitral sclerosis, mild to moderate , peak/mean gradients 26/18 mmHg, mild AR, mild to moderate TR, PAP 60 to 65
mmHg
Continue IV diuresis Lasix 80 mg IV twice daily.
Add metolazone 5 mg on 10/22
Monitor daily weight
Dry weight at the time of prior discharge 112.5 kg
Weight improved to 116-111 KG
Plan is to transition to oral Lasix on 10/26
Continue preadmission regimen including metoprolol, Imdur, hydralazine.
GDMT with prior consideration of SGLT2 inhibitor was not able to tolerate due to incontinence
ALMA on CKD suspect cardiorenal state
Creatinine improving 1.7�1.4 with diuresis
CKD stage IIIb.
Chronic hypoxic respiratory failure, multifactorial. On home O2 at 2 L.
Patient required up to 6 L upon admission and remains with significant exertional dyspnea able to ambulate about 20 feet on PT evaluation.
Patient reports having great difficulty opening whilst on her current oxygen tank. Case management consultation appreciated for assessment and set up with oxygen vendor.
Continue titrate O2 as tolerated
Given worsening of hypoxia, minimal response to diuresis, severe pulmonary hypertension there is a concern for thromboembolic disease.
Most recent lower extremity Doppler negative for DVT.
Unable to perform CT angiogram given abnormal renal function.
VQ scan with low prob of PE;
COPD/asthma
No evidence for exacerbation.
Continue preadmission inhaled corticosteroids and long/short acting bronchodilators.
Bilateral right greater than left lower extremity cellulitis, complicated with chronic lymphedema and dermatitis secondary to venous stasis.
Ultrasound/Doppler lower extremity negative for DVT
IV vancomycin.
Wound care.
Bilateral right greater than left breast cellulitis with excoriation. Wound care.
Type 2 diabetes.
Hemoglobin A1c 5.4
Obesity
Dyslipidemia
Basal bolus protocol.
Serial Accu-Cheks.
Carbohydrate controlled diet.
On repaglinide as needed prior to admission.
Anticipated Discharge: 24 - 48 hours
Subjective/Interval History
-
Date of Service: October 26, 2023
Objective Data
-
Labs:
Laboratory Results
10/26/23
06:52
WBC 5.3
Hgb 9.4 L
Hct 28.9 L
Plt Count 235
Sodium 138
Potassium 3.5
Chloride 98
Carbon Dioxide 32 H
BUN 69 H
Creatinine 1.4 H
Glucose 87
Calcium 8.6
Total Bilirubin 0.6
AST 20
ALT 14
Alkaline Phosphatase 96
Vital Signs:
Vital Signs
Temp Pulse Resp BP Pulse Ox
97.5 F 64 16 133/57 92
10/26/23 14:32 10/26/23 14:32 10/26/23 14:32 10/26/23 14:32 10/26/23 14:32
I&O
10/25/23 10/26/23 10/27/23
06:59 06:59 06:59
Intake Total 840 / 840 1080 / 1080
Output Total 1000 / 1000 1575 / 1575 400 / 400
Balance -160 / -160 -495 / -495 -400 / -400
Physical Exam
-
General: Well Developed and No Apparent Distress
HEENT: Normocephalic, Atraumatic and Moist Mucous Membranes
Respiratory: Clear to Auscultation
Cardiac: Regular Rhythm and S1/S2; Negative Murmur, Rub or Gallop
GI: Soft, Nontender, Nondistended and Normal Bowel Sounds; Negative Organomegaly
Rectal: Deferred by Provider
Musculoskeletal: No Clubbing, No Cyanosis and No Edema
Skin: Negative Rash
Neuro: Nonfocal/Grossly Intact
[2023-10-26 16:34] LABS: Glucose - Point of Care 122 mg/dl (70-99)
[2023-10-26] MEDS: LIPITOR 20 MG PO (20:17)
[2023-10-26] MEDS: HEPARIN SC (20:17)
[2023-10-26 21:32] LABS: Glucose - Point of Care 129 mg/dl (70-99)
[2023-10-26 23:20] VITALS: BP 134/56
[2023-10-27 06:00] VITALS: BMI 43.1
[2023-10-27 07:03] LABS: Glucose - Point of Care 96 mg/dl (70-99)
[2023-10-27 07:48] LABS: Vancomycin Random 15.4 ug/ml
[2023-10-27 08:01] LABS: Blood Urea Nitrogen 66 mg/dl (7-17); Calcium 8.6 mg/dl (8.4-10.2); Carbon Dioxide 33 mmol/L (22-30); Chloride 96 mmol/L (98-107); Estimated Creatinine Clearance 36 ml/min; Glucose 89 mg/dl (70-99); Potassium 3.6 mmol/L (3.5-5.1); Sodium 136 mmol/L (135-145); eGFR 35.01
[2023-10-27 08:15] VITALS: BP 114/59
[2023-10-27] MEDS: ADVAIR HFA 115/21 MCG INHALER 2 PUFF INH (08:27)
[2023-10-27] MEDS: NOVOLOG FLEXPEN-LOW RESISTANCE SC (08:59)
--- NOTE | 2023-10-27 09:01 | W.DS.TRANS ---
DC Summary - Litigation Counsel
-
Discharge Instructions:
Sleep Apnea Risk Intermediate
Discharge Diagnosis/Procedures CHF
Diet 2 Gram Sodium
Blood Work BMP in one week
Instructions: *DCA Heart Failure Instructions
Stand-Alone Forms:
Changes to Home Medications: Yes
Discharge Medications:
DC Medications w/original date entered in [facility]
atorvastatin 20 mg tablet 20 mg PO HS High cholesterol 11/08/19
aspirin 81 mg tablet,delayed release 81 mg PO DAILY Blood clot prevention/tx 09/01/22
acetaminophen 325 mg tablet (Tylenol) 650 mg PO Q6HPRN PRN mild pain/fever 07/27/23
potassium chloride 20 mEq tablet,extended release(part/cryst) (Klor-Con M) 20 meq PO RYAN Electrolyte Repletion 07/27/23
miconazole nitrate 2 % topical powder (Miconazorb AF) 1 applic topical BID apply to folds 08/28/23
bisacodyl 10 mg rectal suppository (Dulcolax (bisacodyl)) 10 mg NJ DAILY PRN if no BM in 8hr after MOM 09/16/23
levalbuterol tartrate 45 mcg/actuation aerosol inhaler 2 inh inhalation R DAILYPRN PRN sob 09/16/23
magnesium hydroxide 400 mg/5 mL oral suspension (Milk of Magnesia) 30 ml PO DAILY PRN if no BM x 2 days 09/16/23
repaglinide 0.5 mg tablet 0.5 mg PO [id number] PRN for glucose>150 09/16/23
sodium phosphates 19 gram-7 gram/118 mL enema (Fleet Enema) 118 ml NJ DAILYPRN PRN if no BM 8hr after supp 09/16/23
ammonium lactate 12 % lotion 1 applic topical BID apply to BLLE 10/01/23
fluticasone propionate 115 mcg-salmeterol 21 mcg/actuation HFA inhaler (Advair HFA) 2 puff inhalation R BID Lung/Breathing Issues 10/20/23
hydralazine 50 mg tablet 50 mg PO BID Blood Pressure 10/20/23
isosorbide mononitrate 30 mg tablet,extended release 24 hr 30 mg PO DAILY Heart Disease/Condition 10/20/23
lidocaine 4 % topical patch 2 patch topical DAILY Pain 10/20/23
metolazone 2.5 mg tablet 2.5 mg PO RYAN Fluid Retention/Swelling 10/20/23
metoprolol succinate 25 mg tablet,extended release 24 hr 25 mg PO DAILY Blood Pressure 10/20/23
therapeutic multivitamin 1 tab PO DAILY Supplement 10/20/23
furosemide 40 mg tablet (Lasix) 80 mg (2 x 40 mg) PO BID #120 tabs 10/27/23
Home Medication Changes
Lasix increased to 80mg BID
Pending Results: No
--- NOTE | 2023-10-27 09:05 | W.DS.TRANS ---
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
-
Discharge Instructions:
Sleep Apnea Risk Intermediate
Discharge Diagnosis/Procedures CHF
Diet 2 Gram Sodium
Blood Work BMP in one week
Instructions: *DCA Heart Failure Instructions
Stand-Alone Forms:
Changes to Home Medications: Yes
Discharge Medications:
DC Medications w/original date entered in [employer]
atorvastatin 20 mg tablet 20 mg PO HS High cholesterol 11/08/19
aspirin 81 mg tablet,delayed release 81 mg PO DAILY Blood clot prevention/tx 09/01/22
acetaminophen 325 mg tablet (Tylenol) 650 mg PO Q6HPRN PRN mild pain/fever 07/27/23
potassium chloride 20 mEq tablet,extended release(part/cryst) (Klor-Con M) 20 meq PO RYAN Electrolyte Repletion 07/27/23
miconazole nitrate 2 % topical powder (Miconazorb AF) 1 applic topical BID apply to folds 08/28/23
bisacodyl 10 mg rectal suppository (Dulcolax (bisacodyl)) 10 mg SC DAILY PRN if no BM in 8hr after MOM 09/16/23
levalbuterol tartrate 45 mcg/actuation aerosol inhaler 2 inh inhalation R DAILYPRN PRN sob 09/16/23
magnesium hydroxide 400 mg/5 mL oral suspension (Milk of Magnesia) 30 ml PO DAILY PRN if no BM x 2 days 09/16/23
sodium phosphates 19 gram-7 gram/118 mL enema (Fleet Enema) 118 ml SC DAILYPRN PRN if no BM 8hr after supp 09/16/23
ammonium lactate 12 % lotion 1 applic topical BID apply to BLLE 10/01/23
fluticasone propionate 115 mcg-salmeterol 21 mcg/actuation HFA inhaler (Advair HFA) 2 puff inhalation R BID Lung/Breathing Issues 10/20/23
hydralazine 50 mg tablet 50 mg PO BID Blood Pressure 10/20/23
isosorbide mononitrate 30 mg tablet,extended release 24 hr 30 mg PO DAILY Heart Disease/Condition 10/20/23
lidocaine 4 % topical patch 2 patch topical DAILY Pain 10/20/23
metolazone 2.5 mg tablet 2.5 mg PO RYAN Fluid Retention/Swelling 10/20/23
metoprolol succinate 25 mg tablet,extended release 24 hr 25 mg PO DAILY Blood Pressure 10/20/23
therapeutic multivitamin 1 tab PO DAILY Supplement 10/20/23
furosemide 40 mg tablet (Lasix) 80 mg (2 x 40 mg) PO BID #120 tabs 10/27/23
Home Medication Changes
Lasix increased.
Repaglinide stopped
Pending Results: No
[2023-10-27] MEDS: THERAGRAN 1 TABLET PO (09:06)
[2023-10-27] MEDS: APRESOLINE 50 MG PO (09:06)
[2023-10-27] MEDS: IMDUR (EXTENDED RELEASE) 30 MG PO (09:08)
[2023-10-27] MEDS: ASPIR LOW (ENTERIC COATED) 81 MG PO (09:08)
[2023-10-27] MEDS: TOPROL XL 25 MG PO (09:08)
[2023-10-27] MEDS: LIDOCAINE 4% PATCH 2 PATCH TOPICAL (09:09)
[2023-10-27] MEDS: LAC HYDRIN, AM LACTIN LOTION 1 APPLIC TOPICAL (09:12)
[2023-10-27] MEDS: DESENEX/MITRAZOL/ZEASORB 1 APPLIC TOPICAL (09:12)
[2023-10-27] MEDS: HEPARIN SC (09:12)
[2023-10-27] MEDS: HYDROPHOR 1 APPLIC TOPICAL (09:14)
[2023-10-27] MEDS: LASIX IV (09:18)
--- NOTE | 2023-10-27 09:24 | CM ---
Addendum entered by Linn Vanegas 10/27/23 10:32:
hospital bed will be supplied by [facility]
Addendum entered by Linn Vanegas 10/27/23 10:30:
IMM benefit explained; form signed @ 1000
Son and daughter at the bedside to transport mother home
Original Note:
Plan: discharge to home today with home health services from [facility] liasion reported that hospital bed was ordered; daughter will be contact for delivery of bed
Transportation: daughter notified via phone; she will provide transport home
--- NOTE | 2023-10-27 15:17 | VNURNOTE ---
Hospital bed ordered from [facility], confirmed w/ that all information received.
[facility] will call patient's daughter to arrange delivery of hospital bed today or tomorrow.
Text earlier today to Surekha from [facility] regarding tanks and issues patient was having at home.
According to Surekha the patient requires a continuous flow regulator not a pulse dose as she currently has at home.
Surekha will reach out to patient and family to discuss and explain why patient would not tolerate portable oxygen concentrator.
== END 2023-10-27 10:15 | disposition home health service (06) | DRG 291 ==
LOC: 4 EAST ACU 16:20
PROVIDERS: Internal Medicine; ADMITTING PHYSICIAN Internal Medicine; EMERGENCY PHYSICIAN Emergency Medicine; FAMILY PHYSICIAN Family Medicine
DX: I13.0 Hypertensive heart and chronic kidney disease with heart failure and stage 1 through stage 4 chronic kidney disease, or unspecified chronic kidney disease (principal); I50.23 Acute on chronic systolic (congestive) heart failure; J96.21 Acute and chronic respiratory failure with hypoxia; L03.116 Cellulitis of left lower limb; Z68.42 Body mass index [BMI] 45.0-49.9, adult; N17.9 Acute kidney failure, unspecified; N18.32 Chronic kidney disease, stage 3b; E11.22 Type 2 diabetes mellitus with diabetic chronic kidney disease; E78.00 Pure hypercholesterolemia, unspecified; J44.89 Other specified chronic obstructive pulmonary disease; E11.36 Type 2 diabetes mellitus with diabetic cataract; D64.9 Anemia, unspecified; G43.909 Migraine, unspecified, not intractable, without status migrainosus; I49.3 Ventricular premature depolarization; G47.33 Obstructive sleep apnea (adult) (pediatric); I05.8 Other rheumatic mitral valve diseases; I87.8 Other specified disorders of veins; N61.0 Mastitis without abscess; R13.10 Dysphagia, unspecified; I89.0 Lymphedema, not elsewhere classified; I87.2 Venous insufficiency (chronic) (peripheral); E66.01 Morbid (severe) obesity due to excess calories; L89.152 Pressure ulcer of sacral region, stage 2; I27.20 Pulmonary hypertension, unspecified; Z86.718 Personal history of other venous thrombosis and embolism; Z79.82 Long term (current) use of aspirin; Z79.51 Long term (current) use of inhaled steroids; Z79.84 Long term (current) use of oral hypoglycemic drugs; Z99.81 Dependence on supplemental oxygen; Z88.8 Allergy status to other drugs, medicaments and biological substances; Z88.6 Allergy status to analgesic agent; Z88.1 Allergy status to other antibiotic agents; Z91.040 Latex allergy status; Z91.119 Patient's noncompliance with dietary regimen due to unspecified reason; Z91.148 Patient's other noncompliance with medication regimen for other reason
CPT/HCPCS: 71045; 71046; 78582; 80048; 80053; 80202; 82962; 83036; 83605; 83880; 84484; 85025; 85027; 87040; 92610; 93005; 93971; 94640; 96374; 96375; 97116; 97162; 97530; 99285; A9540; A9567

== ENCOUNTER → 2023-11-02 13:33 | Outpatient (REF) | payer MEDICARE, OTHER, SELFPAY ==
[2023-11-02 15:53] LABS: Blood Urea Nitrogen 78 mg/dl (7-17); Calcium 8.6 mg/dl (8.4-10.2); Carbon Dioxide 31 mmol/L (22-30); Chloride 95 mmol/L (98-107); Glucose 103 mg/dl (70-99); Potassium 3.5 mmol/L (3.5-5.1); Sodium 138 mmol/L (135-145); eGFR 26.36
== END ==
LOC: CLAB 13:33
PROVIDERS: ATTENDING PHYSICIAN Family Medicine; OTHER PHYSICIAN Internal Medicine Cardiovascular Disease
DX: I10 Essential (primary) hypertension (principal); E11.59 Type 2 diabetes mellitus with other circulatory complications; I50.32 Chronic diastolic (congestive) heart failure
CPT/HCPCS: 80048

== ENCOUNTER → 2023-11-03 08:05 | Outpatient (REF) | payer MEDICARE, OTHER, SELFPAY | LOC: WOUND 08:05 | PROVIDERS: ATTENDING PHYSICIAN Surgery; FAMILY PHYSICIAN Family Medicine | DX: I87.311 Chronic venous hypertension (idiopathic) with ulcer of right lower extremity (principal); L97.312 Non-pressure chronic ulcer of right ankle with fat layer exposed; I87.2 Venous insufficiency (chronic) (peripheral); I73.9 Peripheral vascular disease, unspecified; E11.59 Type 2 diabetes mellitus with other circulatory complications; I50.32 Chronic diastolic (congestive) heart failure; I49.3 Ventricular premature depolarization; N18.32 Chronic kidney disease, stage 3b; E11.22 Type 2 diabetes mellitus with diabetic chronic kidney disease | CPT/HCPCS: 11042; 99204 ==

== ENCOUNTER → 2023-11-12 13:03 | Outpatient (REF) | payer MEDICARE, OTHER, SELFPAY ==
[2023-11-12 15:23] LABS: Blood Urea Nitrogen 82 mg/dl (7-17); Carbon Dioxide 30 mmol/L (22-30); Chloride 101 mmol/L (98-107); Glucose 131 mg/dl (70-99); Potassium 3.5 mmol/L (3.5-5.1); Sodium 142 mmol/L (135-145); eGFR 30.13
== END ==
LOC: CLAB 13:03
PROVIDERS: ATTENDING PHYSICIAN Internal Medicine Cardiovascular Disease; FAMILY PHYSICIAN Family Medicine
DX: I10 Essential (primary) hypertension (principal); N18.32 Chronic kidney disease, stage 3b; I50.32 Chronic diastolic (congestive) heart failure
CPT/HCPCS: 80048

== ENCOUNTER → 2023-11-17 09:00 | Outpatient (REF) | payer MEDICARE, OTHER, SELFPAY | LOC: WOUND 09:00 | PROVIDERS: ATTENDING PHYSICIAN Surgery; FAMILY PHYSICIAN Family Medicine | DX: I87.311 Chronic venous hypertension (idiopathic) with ulcer of right lower extremity (principal); L97.312 Non-pressure chronic ulcer of right ankle with fat layer exposed; L89.312 Pressure ulcer of right buttock, stage 2; L89.322 Pressure ulcer of left buttock, stage 2; I87.2 Venous insufficiency (chronic) (peripheral); I73.9 Peripheral vascular disease, unspecified; E11.59 Type 2 diabetes mellitus with other circulatory complications; N18.32 Chronic kidney disease, stage 3b | CPT/HCPCS: 11042; 99213 ==

== ENCOUNTER → 2023-12-01 08:25 | Outpatient (REF) | payer MEDICARE, OTHER, SELFPAY | LOC: WOUND 08:25 | PROVIDERS: ATTENDING PHYSICIAN Surgery; FAMILY PHYSICIAN Family Medicine | DX: I87.311 Chronic venous hypertension (idiopathic) with ulcer of right lower extremity (principal); L97.312 Non-pressure chronic ulcer of right ankle with fat layer exposed; L89.312 Pressure ulcer of right buttock, stage 2; L89.322 Pressure ulcer of left buttock, stage 2; L97.321 Non-pressure chronic ulcer of left ankle limited to breakdown of skin; L97.111 Non-pressure chronic ulcer of right thigh limited to breakdown of skin; I87.2 Venous insufficiency (chronic) (peripheral); I89.0 Lymphedema, not elsewhere classified; I73.9 Peripheral vascular disease, unspecified; E11.59 Type 2 diabetes mellitus with other circulatory complications; I49.3 Ventricular premature depolarization; I50.32 Chronic diastolic (congestive) heart failure; N18.32 Chronic kidney disease, stage 3b; E11.22 Type 2 diabetes mellitus with diabetic chronic kidney disease | CPT/HCPCS: 11042; 99213 ==

== ENCOUNTER 2023-12-15 20:09 | Inpatient (IN) | payer MEDICARE, OTHER, SELFPAY ==
[2023-12-15] VITALS (9 sets, daily range): BP systolic 98–126; BP diastolic 45–99; BMI 43.4; BMI 42.2
[2023-12-15 16:37] LABS: % Basophils 0.9 % (0-2); % Immature Granulocytes 0.5 % (0-0.5); % Lymphocytes 6.4 % (20.5-51.1); % Monocytes 10.2 % (1.7-9.3); Absolute Basophils 0.1 10^3/uL (0-0.2); Absolute Eosinophils 0.2 10^3/uL (0-0.7); Absolute Lymphocytes 0.5 10^3/uL (1.2-3.4); Absolute Monocytes 0.8 10^3/uL (0.1-0.6); Absolute Neutrophils 6.3 10^3/uL (1.4-6.5); Hematocrit 34.9 % (37.0-47.0); Hemoglobin 10.8 g/dL (12.0-16.0); Mean Corp Hgb Conc. 30.9 g/dL (33.0-37.0); Mean Corpuscular Hgb 26.2 pg (27.0-31.0); Mean Corpuscular Volume 84.7 fL (81.0-99.0); Mean Platelet Volume 9.4 fL (7.4-10.4); Nucleated Red Blood Cells % 0 %; Platelet Count 241 10^3/uL (130-400); Red Blood Cell Count 4.12 10^6/uL (4.20-5.40); Red Cell Dist. Width 17.3 % (11.5-14.5)
[2023-12-15 16:56] LABS: ALT (SGPT) 14 U/L (0-35); AST (SGOT) 29 U/L (14-36); Albumin 3.1 g/dl (3.5-5.0); Alkaline Phosphatase 107 U/L (38-126); Blood Urea Nitrogen 48 mg/dl (7-17); Calcium 8.2 mg/dl (8.4-10.2); Carbon Dioxide 26 mmol/L (22-30); Chloride 105 mmol/L (98-107); Estimated Creatinine Clearance 34 ml/min; Glucose 108 mg/dl (70-99); Potassium 4.9 mmol/L (3.5-5.1); Sodium 138 mmol/L (135-145); Total Bilirubin 0.9 mg/dl (0.2-1.3); Total Protein 7.1 g/dl (6.3-8.2)
--- NOTE | 2023-12-15 17:33 | ED.GENMED ---
History of Present Illness
General
Chief Complaint: Breathing Problem
Source: patient and records
Exam Limitations: clinical condition and altered mental status
Time Seen by Provider: 12/15/23 16:18
Nursing documentation reviewed up to this point in time: agreed with
Travel History
Have you had any contact with someone who has COVID-19?: No
Do you have any symptoms of coronavirus? Fever > 100 degrees, chills, cough, shortness of breath, sore throat, loss of taste or smell, muscle aches, or headache?: No
History of Present Illness
History of Present Illness:
78-year-old female oxygen dependent respiratory failure she does be from heart failure possible COPD on Lasix levalbuterol apparently had increased work of breathing decreased sats and confusion
Legs are swollen and wrapped, she says they have been oozing she is unsure if her weight is going up or down, denies fever or chest pain my evaluation she is somnolent but easily arousable she has been increased to 4 L of oxygen
Past History
Past History
ED Past Medical History: Arrthythmia (Frequent PVCs), Asthma, CHF, COPD, HTN, Hypercholesterolemia, NIDDM, Other (Chronic lymphedema, Migraines, PNA, DVT, Anemia) and Other (Right lower extremity DVT October 2019)
ED Past Surgical History: Gynecological (Several D&Cs, miscarriage), Tonsilectomy and Other (Cancerous mass removed from right leg 20 years ago. Breast mass removed noncancerous. cataracts, )
Social History
Tobacco: Non-smoker
Alcohol: None
Drug: None
Personal:
Living: assisted living (She lives with her family but she is in rehab at this time at [facility])
Employment: Retired
Family History
Family History: Other (Noncontributory)
Review of Systems
Review of Systems
All Other Systems: Not applicable
Constitutional: Reports fatigue; Denies fever
EENT: Reports no symptoms
Respiratory: Reports cough and trouble breathing
Cardiac: Reports no symptoms
ABD/GI: Reports no symptoms
Neurological: Reports weakness
Phy Exam
Physical Exam
Physical Exam:
Physical Exam
General: Somnolent 78-year-old female responds to verbal stimuli
Neck: No jaundice positive JVD
Heart: Regular
Lungs: Bibasilar crackle
Abdomen: Nontender
Neuro: alert and oriented. no focal neurological deficits
Skin: no rash
Psychiatric: well kept. interactive and cooperative
Extremities: Venous stasis changes with some edema is present slight skin breakdown on the lateral right lower leg
Scores
Heart Failure Risk
Heart Failure Risk Score: Yes
History of Stroke or TIA: No
History of intubation for respiratory distress: No
Heart rate on ED arrival >/= 110: Yes
SaO2 <90% on arrival on room air: Yes
HR >/=110 during 3min walk test (or too ill to perform test): Yes
ECG has acute ischemic changes: No
Urea >/=12mmol/L (BUN 33.6mg/dL): No
Serum CO2>/=35mmol/L: No
Troponin I or T elevated to MO Level (0.4mg/dL): No
NT-proBNP >/=5,000ng/L (5,000pg/ml): Yes
HF Risk Score: 4
Admission Status: HIGH RISK 26.1% Consider SNF treatment or admission to hospital
Course
Orders/Labs/Results
Orders:
Orders
12/15/23 16:26
Complete Blood Count/With Diff Urgent
Comprehensive Metabolic Panel Urgent
12/15/23 16:32
Electrocardiogram (*1) Urgent
Reason for Study: Shortness of Breath
EKG- Treatment ONCE
CR Chest - 2 Views Urgent
Comment:
Reason For Exam: sob
12/15/23 17:12
Add On- LAB Urgent
Tests Added?: pBNP
Ipratropium/Albuterol Sulfate [Duoneb] 3 ml INH R NOW STA
12/15/23 17:31
NT-proBNP Urgent
Comment: ADD ON
Troponin I Urgent
12/15/23 17:37
Levalbuterol [Xopenex 0.63 mg Inhalant Solution] 0.63 mg INH R NOW STA
12/15/23 17:42
ABG [Arterial Blood Gas] Urgent
%Oxygen/Room Air: 4
12/15/23 18:47
Furosemide [Lasix] 80 mg IV NOW STA
Abnormal Lab Results
12/15/23 12/15/23
16:26 17:42
RBC 4.12 L 10^6/uL
(4.20-5.40)
Hgb 10.8 L g/dL
(12.0-16.0)
Hct 34.9 L %
(37.0-47.0)
MCH 26.2 L pg
(27.0-31.0)
MCHC 30.9 L g/dL
(33.0-37.0)
RDW 17.3 H %
(11.5-14.5)
Absolute Lymphs (auto) 0.5 L 10^3/uL
(1.2-3.4)
Absolute Monos (auto) 0.8 H 10^3/uL
(0.1-0.6)
Neutrophils % 79.0 H %
(42.2-75.2)
Lymphocytes % 6.4 L %
(20.5-51.1)
Monocytes % 10.2 H %
(1.7-9.3)
pCO2 42 H mmHg
(32-35)
pO2 156 H mmHg
(83-108)
ABG O2 Sat (Measured) 99.9 H %
(94-98)
BUN 48 H mg/dl
(7-17)
Creatinine 1.6 H mg/dL
(0.6-1.0)
Glucose 108 H mg/dl
(70-99)
Calcium 8.2 L mg/dl
(8.4-10.2)
Albumin 3.1 L g/dl
(3.5-5.0)
12/15/23 16:26
12/15/23 16:26
Vital Signs
Initial and Last Documented VS:
Initial Vital Signs
Temp Pulse Resp BP Pulse Ox
97.6 F 91 17 111/79 100
12/15/23 16:09 12/15/23 16:09 12/15/23 16:09 12/15/23 16:09 12/15/23 16:09
Last Documented Vital Signs
Temp Pulse Resp BP Pulse Ox
97.6 F 70 18 102/77 100
12/15/23 16:09 12/15/23 19:06 12/15/23 18:18 12/15/23 19:06 12/15/23 18:18
*Critical Care Note
Total Time (30-74mins, 75-104mins- exclusive of procedures): 20
Update Note
Update Note:
Update, patient looks improved after nebulizer ABG without any CO2 retention or acidosis will wean oxygen as tolerated with diuresis tolerated
ED Attending Note
-
Portions of this chart may have been created with voice recognition software.� Occasional wrong word or��sound alike� substitutions may have occurred due to the inherent limitations of voice recognition software.
Discharge Plan
Departure
Patient Disposition: Admit
Date of Disposition: 12/15/23
Time of Disposition: 19:21
Presentation/result/management discussed w/ accepting MD/DO: Hospitalist
Patient with high blood pressure during this ER visit?: No
Condition: Fair
Covid-19: Not Applicable
Discharge Problem:
Lymphedema, Obstructive sleep apnea, Pulmonary hypertension, Hypertensive heart and chronic kidney disease with heart failure and stage 1 through stage 4 chronic kidney disease, or unspecified chronic kidney disease, Morbid (severe) obesity due to
excess calories, Chronic kidney disease, stage 3b, Acute on chronic systolic (congestive) heart failure, Chronic respiratory failure with hypoxia, CHF (congestive heart failure), Acute and chronic respiratory failure with hypoxia, Body mass index
[BMI] 45.0-49.9, adult
Prescriptions:
No Action
metolazone 2.5 mg Tablet
2.5 mg PO RYAN
atorvastatin 20 mg Tablet
20 mg PO DAILY
Patient Comments:
12/15/2023, daughter unsure whether morning or evening med.
miconazole nitrate [Miconazorb AF] 2 % Powder
1 applic TOPICAL BID
Theragen Tablet
1 tab PO DAILY
Patient Comments:
12/15/2023, daughter unsure whether morning or evening med.
aspirin 81 mg Tablet,Delayed Release (Dr/Ec)
81 mg PO DAILY
Patient Comments:
12/15/2023, daughter unsure whether morning or evening med.
acetaminophen [Tylenol Arthritis] 650 mg Tablet Extended Release
1,300 mg PO BIDPRN PRN (Reason: mild pain)
isosorbide dinitrate 30 mg Tablet
30 mg PO DAILY
Patient Comments:
12/15/2023, daughter unsure whether morning or evening med.
potassium chloride 20 mEq Tablet,Er Particles/Crystals
20 meq PO BID PRN (Reason: when taking Lasix)
repaglinide 0.5 mg Tablet
0.5 mg PO BIDPRN PRN (Reason: high blood sugar)
furosemide 80 mg Tablet
80 mg PO BID PRN (Reason: edema)
lidocaine 5 % Adhesive Patch,Medicated
2 patch TOPICAL DAILY PRN (Reason: B/L shoulders)
Patient Comments:
12/15/2023, 1 patch per shoulder dailyprn.
ammonium lactate 12 % Cream
1 applic TOPICAL BID
Patient Comments:
12/15/2023, wound care.
hydralazine 50 mg Tablet
50 mg PO BID
metoprolol succinate 25 mg Tablet Extended Release 24 Hr
25 mg PO DAILY
Patient Comments:
12/15/2023, daughter unsure whether morning or evening med.
fluticasone propion-salmeterol [Advair HFA] 115-21 mcg/actuation Hfa Aerosol Inhaler
2 puff INHALATION R BID
Patient Comments:
12/15/2023, pt. cannot have generic form per daughter; pt. reacts negatively to it.
Skintegrity
1 applic topical BID
Patient Comments:
12/15/2023, wound care.
Ultra Collagen + C
1 tab PO DAILY
Patient Comments:
12/15/2023, daughter unsure whether morning or evening med.; 1000-10 mg tablet.
diclofenac sodium 1 % gel
1 applic topical Q6HPRN PRN (Reason: B/L knees)
Referrals:
Miguel Bella, DO [Family Provider] -
Interventions
Interventions:
*Risk Screen - Suicide Last Done: 12/15/23 16:09
*General Assessment Last Done: 12/15/23 16:09
*Neglect/Abuse Screening Last Done: 12/15/23 16:09
ED- Fall Risk Assessment Last Done: 12/15/23 16:19
*ED COVID-19 Vaccine History Last Done: 12/15/23 16:09
ED- Cardiac Assessment Last Done: 12/15/23 16:19
ED- Pulmonary Assessment Last Done: 12/15/23 16:19
Discharge Date and Time
Print Language: DANISH
[2023-12-15] MEDS: XOPENEX 0.63 MG INHALANT SOLUTION 0.630000000000000004 MG INH (17:44)
[2023-12-15 17:49] LABS: B.E. 1.7 mmol/L; HCO3 26.6 mmol/L (21-28); O2 Saturation % 99.9 % (94-98); PCO2 42 mmHg (32-35); PO2 156 mmHg (83-108); pH 7.41 (7.35-7.45)
[2023-12-15 18:05] LABS: NT-proBNP 16300 pg/ml; Troponin I < 0.012 ng/ml
[2023-12-15] MEDS: LASIX 80 MG IV (19:06)
--- NOTE | 2023-12-15 20:01 | HPS.HSE ---
Family Physician
-
Family Physician: Miguel Bella
Chief Complaint
-
Confusion
History of Present Illness
Patient is an 78y F with PMH significant for CHF, COPD, morbid obesity and chronic lymphedema who presents to ED for evaluation of confusion. Patient states that her daughter brought her in because the patient was acting confused. Patient
states that she was sleeping a lot today and she was 'dreaming'. Daughter noted that she was reaching for objects that were not present and was talking nonsense (patient relates this was her speaking in her dream). Patient was brought to the ED
for further evaluation and treatment. ED staff notes that she was initially somnolent. At the time of my exam she is awake, alert and oriented and able to provide detailed history without difficulty.
She denies any chest pain or palpitations. She denies any new / worsened SOB. She uses 2 lpm of NC oxygen at home at all times.
She states that her weight has been stable at home and her weight here today is consistent with her previously stated 'dry weight'.
She does note that she has not been urinating as much as she typically does.
In addition, she states that she likely missed a few doses of her Lasix this week.
She states that there have been work crews painting in her house over the past week - which has somewhat thrown her off her routine.
Medical History
Past Medical History
Past Medical History: Reports Other
Additional Past Medical History:
Chronic hypoxic respiratory failure on home oxygen 1-2 L via NC
Chronic HFrEF (40-45%)
Frequent PVCs and bigeminy
Asthma
Chronic Lymphedema and chronic venous stasis changes
Hypertension
HLD
DM II
MARIAMA
Peripheral Neuropathy
History of DVT
Morbid Obesity
Medication and dietary non-adherence
Past Surgical History: Reports Other
Additional Past Surgical History:
B/l cataract surgery, Several D&Cs, miscarriage, Tonsilectomy, Cancerous mass removed from right leg 20 years ago, Breast mass removed noncancerous.
Social History
Tobacco: Non-smoker
Alcohol: None
Drug: None
Family History
Family History: Other (Father: DM, HTN Mother: Thyroid Disease)
Allergies / Home Medications
Allergies reflects when Allergies were last updated in [employer].
Home Medications with original date entered in [employer]
Allergy/Medication List:
Allergies
Allergy/AdvReac Type Severity Reaction Status Date / Time
albuterol Allergy 'could not Verified 12/15/23 17:20
breath'
ceftriaxone [From Rocephin] Allergy Rash Verified 12/15/23 17:20
08/28/23
admission
cefuroxime [From Ceftin] Allergy facial Verified 12/15/23 17:20
droop,lip
swell/Margie
cefepime,
cefazolin
latex Allergy Rash Verified 12/15/23 17:20
levofloxacin [From Levaquin] Allergy facial Verified 12/15/23 17:20
droop,
rash,
numbness
lisinopril Allergy Shortness Verified 12/15/23 17:20
of Breath
naproxen Allergy Rash Verified 12/15/23 17:20
NSAIDS (Non-Steroidal Allergy Rash Verified 12/15/23 17:20
Anti-Inflamma
poison aroldo extract Allergy Unknown Verified 12/15/23 17:20
poison oak extract Allergy Unknown Verified 12/15/23 17:20
Home Medications
Skintegrity 1 applic topical BID B/L lower legs 12/15/23
Ultra Collagen + C 1 tab PO DAILY 12/15/23
acetaminophen 650 mg tablet,extended release 1,300 mg PO BIDPRN PRN mild pain 12/15/23
ammonium lactate 12 % topical cream 1 applic topical BID B/L lower legs 12/15/23
aspirin 81 mg tablet,delayed release 81 mg PO DAILY 12/15/23
atorvastatin 20 mg tablet 20 mg PO DAILY 12/15/23
diclofenac sodium 1 applic topical Q6HPRN PRN B/L knees 12/15/23
fluticasone propionate 115 mcg-salmeterol 21 mcg/actuation HFA inhaler (Advair HFA) 2 puff inhalation R BID 12/15/23
furosemide 80 mg tablet 80 mg PO BID edema 12/15/23
hydralazine 50 mg tablet 50 mg PO BID 12/15/23
isosorbide dinitrate 30 mg tablet 30 mg PO DAILY 12/15/23
lidocaine 5 % topical patch 2 patch topical DAILY PRN B/L shoulders 12/15/23
metolazone 2.5 mg tablet 2.5 mg PO RYAN 12/15/23
metoprolol succinate 25 mg tablet,extended release 24 hr 25 mg PO DAILY 12/15/23
miconazole nitrate 2 % topical powder (Miconazorb AF) 1 applic topical BID under B/L breasts/groin 12/15/23
potassium chloride 20 mEq tablet,extended release(part/cryst) 20 meq PO BID 12/15/23
repaglinide 0.5 mg tablet 0.5 mg PO BIDPRN PRN high blood sugar 12/15/23
therapeutic multivitamin 1 tab PO DAILY 12/15/23
Review of Systems
-
History Source: Patient
A 12 point ROS was completed and negative except as noted: Yes
Constitutional: Reports Fatigue; Denies Fever, Weight Gain, Weight Loss or Chills
EENT: Denies Sore Throat
Respiratory: Denies Cough, Hemoptysis or Trouble Breathing
Cardiac: Denies Chest Pain, Diaphoresis or Palpitations
Abdomen/GI: Denies Abdominal Pain, Nausea, Vomiting or Diarrhea
: Reports Other (Decreased urination.); Denies Dysuria or Frequency
Musculoskeletal: Reports Edema (Chronic lymphedema.)
Skin: Reports Other (Wound on backside with active irritation / bleeding)
Neurological: Denies Dizzy or Headache
Psych: Reports Audio or Visual Hallucinations; Denies Depression or Anxiety
Physical Exam
Vital Signs
Vital Signs
Temp Pulse Resp BP Pulse Ox
97.6 F 86 18 102/77 95
12/15/23 16:09 12/15/23 19:15 12/15/23 19:15 12/15/23 19:06 12/15/23 19:28
Physical Exam
General: Other (78y F in no acute distress.)
HEENT: Moist mucous membranes, PERRLA and Other (Pos JVD.)
Respiratory: Other (Decreased at bases - otherwise clear.)
Cardiac: S1/S2, Irregular Rhythm and Murmur (II/ JAIME)
GI: Soft, Non Tender, Non Distended and Normal Bowel Sounds
Musculoskeletal: Other (Chronic LE lymphedema with nodular / thickened skin changes. No significant erythema, increased warmth, etc. Sacral wound.)
Neuro: AO x 3
Psych: No Confused, Agitated or Anxious
Laboratory Results
-
12/15/23 16:26
12/15/23 16:26
Laboratory Results
pH 7.41 (7.35-7.45) 12/15/23 17:42
pCO2 42 mmHg (32-35) H 12/15/23 17:42
pO2 156 mmHg (83-108) H 12/15/23 17:42
HCO3 26.6 mmol/L (21-28) 12/15/23 17:42
Total Bilirubin 0.9 mg/dl (0.2-1.3) 12/15/23 16:26
AST 29 U/L (14-36) 12/15/23 16:26
ALT 14 U/L (0-35) 12/15/23 16:26
Alkaline Phosphatase 107 U/L (38-126) 12/15/23 16:26
Troponin I < 0.012 ng/ml 12/15/23 17:31
Impression/Plan
-
A/P: Patient is an 78y F with PMH significant for CHF, COPD and chronic hypoxemia who presents to ED for evaluation of somnolence and confusion.
Acute TME
- Admit for further evaluation and treatment.
- No significant change in hypoxemia or other acute / focal complaints.
- ? if confusion is related to exposure to paint fumes in the home over the past week or so?
- Seems significantly improved here since arrival.
- Treat chronic / other issues as noted below.
- Follow for any new / recurrent confusion or hallucinations.
Acute on Chronic HFmrEF
Valvular Heart Disease
- CXR shows increased pulmonary markings and pos JVD noted on exam.
- Oxygenation appears to be at baseline. Patient denies any subjective increase in dyspnea.
- Weight is stable from prior admission and BNP is equivocal compared to prior values.
- Patient does report decreased urine output despite Lasix at home - and admits to missed doses this past week.
- IV Lasix BID for now.
- Follow I/Os, daily weights, etc and return to usual oral dosing in a day or two.
- Holding parameters for BP meds / hold hydralazine for now to allow effective diuresis (BP on the lower side on arrival).
- Continue other GDMT.
Chronic Hypoxemic Respiratory Failure
COPD without Acute Exacerbation
- Stable. Saturations acceptable on usual 2 lpm of supplemental oxygen.
- Continue O2 support, Advair, etc.
- Patient apparently cannot tolerate albuterol nebs.
- Follow for any new / worsening symptoms.
Benign Hypertension
- BP currently on the lower side.
- Hold hydralazine / holding parameters for other BP medications.
- Adjust regimen as needed for adequate control.
DM-II
- Stable. Apparently on repaglinide PRN at home. Will hold this for now.
- Follow glucose and cover with SSI as needed.
CKD III
- Stable. SCr at / near known baseline.
- Follow for changes with diuresis.
Anemia of CKD
- Stable. Hgb at / near known baseline.
- Follow for changes.
Chronic Lymphedema
Stage II Sacral Wound
- Wound Care eval for local care recommendations.
- LEs do not appear to be acutely infected at present.
- Observe off of systemic abx for now.
- Followed at Wound Care as an outpatient.
Morbid Obesity due to excess calories
MARIAMA not on PAP therapy
- Affects all aspects of care.
- Encourage healthy diet / increased activity as tolerated with goal of weight loss.
- Not compliant with PAP therapy x several years.
DVT Prophylaxis: Lovenox
Code Status: Full
--- NOTE | 2023-12-15 21:30 | PTCARENOTE ---
Received patient from ED via stretcher. Patient pulled over from stretcher to bed. No current complaints of pain. Oriented patient to room and placed call disla within reach.
[2023-12-15 21:51] LABS: Glucose - Point of Care 87 mg/dl (70-99)
[2023-12-15] MEDS: ADVAIR HFA 115/21 MCG INHALER 2 PUFF INH (21:51)
[2023-12-15] MEDS: KCL 20 MEQ PO (22:28)
[2023-12-16] VITALS (8 sets, daily range): BP systolic 100–132; BP diastolic 51–83; PULSE 99; O2SAT 94; BMI 42.5
[2023-12-16 00:21] LABS: Troponin I 0.013 ng/ml
--- NOTE | 2023-12-16 03:38 | DOWNTIME ---
There was a [employer] Downtime on 12/16/2023 from 0100 to 12/16/2023 at 0337. Downtime documentation of patient's care, including medication administrations, has been reconciled in the electronic record per guidelines. Refer to the
patient's paper chart under the miscellaneous tab to see printed paper medication records and downtime forms.
[2023-12-16 07:00] LABS: Hematocrit 33.3 % (37.0-47.0); Hemoglobin 10.5 g/dL (12.0-16.0); Mean Corp Hgb Conc. 31.5 g/dL (33.0-37.0); Mean Corpuscular Hgb 26.2 pg (27.0-31.0); Mean Platelet Volume 9.3 fL (7.4-10.4); Platelet Count 219 10^3/uL (130-400); Red Blood Cell Count 4.01 10^6/uL (4.20-5.40); Red Cell Dist. Width 17.3 % (11.5-14.5); White Blood Cell Count 6.5 10^3/uL (4.8-10.8)
[2023-12-16 07:22] LABS: Glucose - Point of Care 101 mg/dl (70-99)
[2023-12-16 07:26] LABS: Blood Urea Nitrogen 46 mg/dl (7-17); Calcium 8.2 mg/dl (8.4-10.2); Carbon Dioxide 29 mmol/L (22-30); Chloride 104 mmol/L (98-107); Estimated Creatinine Clearance 35 ml/min; Glucose 83 mg/dl (70-99); Potassium 4.4 mmol/L (3.5-5.1); Sodium 139 mmol/L (135-145); eGFR 35.01
[2023-12-16 07:27] LABS: Troponin I 0.015 ng/ml
[2023-12-16] MEDS: ADVAIR HFA 115/21 MCG INHALER 2 PUFF INH ×2 (07:35→19:24)
[2023-12-16] MEDS: SORBITRATE 30 MG PO (09:17)
[2023-12-16] MEDS: LIPITOR 20 MG PO (09:18)
[2023-12-16] MEDS: KCL 20 MEQ PO ×2 (09:18→21:52)
[2023-12-16] MEDS: LASIX 60 MG IV ×2 (09:18→17:07)
[2023-12-16] MEDS: ASPIR LOW (ENTERIC COATED) 81 MG PO (09:18)
[2023-12-16] MEDS: TOPROL XL 25 MG PO (09:18)
[2023-12-16] MEDS: DESENEX/MITRAZOL/ZEASORB 1 APPLIC TOPICAL ×2 (09:19→21:52)
--- NOTE | 2023-12-16 10:26 | VNURNOTE ---
Patient is current with [facility] since 10/27 w/ SN/PT & SALES [facility]IST[facility] [employer] AND [facility]IA visit 11/11 for community resources through [facility]. Will monitor progress and plan at discharge.
--- NOTE | 2023-12-16 10:57 | W.PN.HOSP.TC ---
Addendum entered and electronically signed by Navi Knight MD 12/16/23 15:23:
Patient seen and examined
Discussed with resident
Agree with assessment and plan
Impression/plan:
Presentation with lethargy/TME most likely due to acute CO2 retention and possibly worsening hypoxia at home.
Acute CHF mildly reduced EF.
Chronic hypoxic/hypercarbic respiratory failure on home O2 at 2 L per
Obstructive sleep apnea intolerant to CPAP
Clinically volume overloaded with weight up around 4 pounds since last discharge.
Chest x-ray consistent with pulmonary edema
ABG with mild CO2 retention
Mental status and respiratory status improved with initiation of IV diuresis (patient reports missing 1 to 2 days of Lasix at home).
Offered trial of CPAP at night, hopefully will able to tolerate
Continue O2 supplementation
Exam with no evidence of bronchospasm. Currently no indication for systemic steroids
Chronic bilateral lower extremity cellulitis with venous stasis dermatitis.
Continue wound care.
Check bilateral lower extremity Doppler
Original Note:
Today's Communication/Plan
-
* BL LE US today.
* IV diuresis.
* Follow weights, I&Os.
* Continue O2 support, Advair.
* Wound care following.
* Will try C-PAP at night.
Assessment / Plan
Assessment / Plan
Assessment
Patient is an 78y F with PMH significant for CHF, COPD, morbid obesity and chronic lymphedema who presents to ED for evaluation of confusion. Patient states that her daughter brought her in because the patient was acting confused. Patient
states that she was sleeping a lot today and she was 'dreaming'. Daughter noted that she was reaching for objects that were not present and was talking nonsense (patient relates this was her speaking in her dream). Patient was brought to the ED
for further evaluation and treatment. ED staff notes that she was initially somnolent. At the time of my exam she is awake, alert and oriented and able to provide detailed history without difficulty. She denies any chest pain or palpitations. She
denies any new / worsened SOB. She uses 2 lpm of NC oxygen at home at all times. She states that her weight has been stable at home and her weight here today is consistent with her previously stated 'dry weight'. She does note that she has not been
urinating as much as she typically does. In addition, she states that she likely missed a few doses of her Lasix this week. She states that there have been work crews painting in her house over the past week - which has somewhat thrown her off her
routine.
Impression
* Toxic metabolic encephalopathy
* Acute on chronic heart failure with midrange ejection fraction
* Valvular heart disease
* Chronic hypoxemic respiratory insufficiency
* Chronic obstructive pulmonary disease without acute exacerbation
* Essential hypertension
* Type II diabetes mellitus
* Hyperlipidemia
* Chronic kidney disease, stage IIIb
* Anemia of renal disease
* Chronic lymphedema
* Sacral wound, stage II
* Morbid obesity
* Obstructive sleep apnea
Plan
Toxic metabolic encephalopathy
- Admit for further evaluation and treatment.
- No significant change in hypoxemia or other acute / focal complaints.
- ? if confusion is related to exposure to paint fumes in the home over the past week or so?
- Seems significantly improved here since arrival.
- Treat chronic / other issues as noted below.
- Follow for any new / recurrent confusion or hallucinations.
Acute on chronic heart failure with midrange ejection fraction
Valvular heart disease
- CXR shows increased pulmonary markings and pos JVD noted on exam.
- Oxygenation appears to be at baseline. Patient denies any subjective increase in dyspnea.
- Weight is stable from prior admission and BNP is equivocal compared to prior values.
- Patient does report decreased urine output despite Lasix at home - and admits to missed doses this past week.
- IV Lasix BID for now.
- Follow I/Os, daily weights, etc and return to usual oral dosing in a day or two.
- Holding parameters for BP meds / hold hydralazine for now to allow effective diuresis (BP on the lower side on arrival).
- Continue other GDMT.
Chronic hypoxemic respiratory insufficiency
Chronic obstructive pulmonary disease without acute exacerbation
- Stable. Saturations acceptable on usual 2 lpm of supplemental oxygen.
- Continue O2 support, Advair, etc.
- Patient apparently cannot tolerate albuterol nebs.
- Follow for any new / worsening symptoms.
Essential hypertension
- BP currently on the lower side.
- Hold hydralazine / holding parameters for other BP medications.
- Adjust regimen as needed for adequate control.
Type II diabetes mellitus
- Stable. Apparently on repaglinide PRN at home. Will hold this for now.
- Follow glucose and cover with SSI as needed.
Chronic kidney disease, stage IIIb
- Stable. SCr at / near known baseline.
- Follow for changes with diuresis.
Anemia of renal disease
- Stable. Hgb at / near known baseline.
- Follow for changes.
Chronic lymphedema
Sacral Wound, stage II
- Wound Care eval for local care recommendations.
- LEs do not appear to be acutely infected at present.
- Observe off of systemic abx for now.
- Followed at [facility] Care as an outpatient.
Morbid obesity
Obstructive sleep apnea
- Affects all aspects of care.
- Encourage healthy diet / increased activity as tolerated with goal of weight loss.
- Not compliant with PAP therapy x several years.
- Will try C-PAP tonight.
DVT prophylaxis
- Enoxaparin sodium.
Code status
- Full.
Anticipated Discharge: 24 - 48 hours
Subjective/Interval History
-
Date of Service: December 16, 2023
Objective Data
-
Labs:
Laboratory Results
12/16/23
06:44
WBC 6.5
Hgb 10.5 L
Hct 33.3 L
Plt Count 219
Sodium 139
Potassium 4.4
Chloride 104
Carbon Dioxide 29
BUN 46 H
Creatinine 1.5 H
Glucose 83
Calcium 8.2 L
Vital Signs:
Vital Signs
Temp Pulse Resp BP Pulse Ox
98.2 F 76 16 105/51 95
12/16/23 07:15 12/16/23 09:18 12/16/23 07:40 12/16/23 09:18 12/16/23 10:46
I&O
12/15/23 12/16/23 12/17/23
06:59 06:59 06:59
Intake Total 240 / 240
Output Total 200 / 200
Balance 40 / 40
[2023-12-16 11:55] LABS: Glucose - Point of Care 124 mg/dl (70-99)
--- NOTE | 2023-12-16 12:31 | WOUNDNOTE ---
L THIGH (LATERAL POSTERIOR UPPER)
--- NOTE | 2023-12-16 12:34 | WOUNDNOTE ---
BUTTOCKS/THIGHS (POSTERIOR)
--- NOTE | 2023-12-16 12:40 | WOUNDNOTE ---
WO RN note: Patient admitted with acute TME, CHF, chronic lymphedema. Patient is current with VN and follows [facility].
See H&P for complete history.
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
Wound Location and type/assessment: Patient admitted with: full thickness to subcutaneous layer venous stasis ulcers LE's. +Hemosiderosis. +Palpable pedal pulses. 10/20/23 RLE venous Doppler negative for DVT. Patient stated she wears compression.
Bilateral buttocks and posterior thighs with deep dermal vs stage 3 pressure injuries. Abdominal/groin yeasty red skin. L posterior thigh with dermal pink abrasion.
Appetite: good.
Pressure redistribution devices in place: [employer] Accumax. MARY Daly to coordinate switching bed to an air bed. t/c Spoke with Osiel, inside sales supervisor and requested an air bed.
Plan: Sacral and thigh and Le wound care and knee high Shilo wraps applied with help from C RN student Mimi, MARY Daly. PCT Lisandro assisted with turning and positioning patient. t/c SPD and ordered bariatric air chair cushion. Discussed with RN
Malika nurse.
Confirmed orders with Dr. Knight; defer to hospitalist if LE venous Doppler or baseline arterial Doppler indicated; 09/2023 RLE venous Doppler negative for DVT, pedal pulses palpable.
Care plan to be updated and will follow as needed.
Recommend follow up at wound care center upon discharge.
[2023-12-16 14:21] LABS: Glycohemoglobin (HgbA1c) 5.7 % (4.0-5.6)
[2023-12-16 16:04] LABS: Troponin I 0.012 ng/ml
[2023-12-16 17:08] LABS: Glucose - Point of Care 117 mg/dl (70-99)
[2023-12-16] MEDS: LOVENOX 40 MG SC (17:08)
--- NOTE | 2023-12-16 17:18 | CM ---
Call placed to Carmen's daughter, David, to follow up regarding [employer] home assessment for services. She has not called to pursue the services yet; seemed to be overwhelmed when speaking on the phone.
CM encouraged David to call the [employer] to arrange for in-home assessment of services and provided her with the number to call.
Plan: Resumption of [facility] at discharge.
[2023-12-16 21:30] LABS: Glucose - Point of Care 134 mg/dl (70-99)
[2023-12-17 03:21] VITALS: BP 124/54
[2023-12-17 05:20] VITALS: BMI 43.3
[2023-12-17 07:10] VITALS: BP 121/54
[2023-12-17 07:34] VITALS: BMI 42.1
[2023-12-17] MEDS: ADVAIR HFA 115/21 MCG INHALER 2 PUFF INH ×2 (07:37→19:32)
[2023-12-17 07:41] LABS: % Basophils 0.7 % (0-2); % Eosinophils 9.2 % (0-6); % Immature Granulocytes 0.3 % (0-0.5); % Lymphocytes 10.4 % (20.5-51.1); % Neutrophils 67.4 % (42.2-75.2); Absolute Eosinophils 0.5 10^3/uL (0-0.7); Absolute Lymphocytes 0.6 10^3/uL (1.2-3.4); Absolute Monocytes 0.7 10^3/uL (0.1-0.6); Absolute Neutrophils 3.9 10^3/uL (1.4-6.5); Hemoglobin 9.9 g/dL (12.0-16.0); Mean Corp Hgb Conc. 30.9 g/dL (33.0-37.0); Mean Corpuscular Hgb 25.9 pg (27.0-31.0); Mean Corpuscular Volume 83.8 fL (81.0-99.0); Mean Platelet Volume 9.5 fL (7.4-10.4); Nucleated Red Blood Cells % 0 %; Platelet Count 216 10^3/uL (130-400); Red Blood Cell Count 3.82 10^6/uL (4.20-5.40); Red Cell Dist. Width 17.4 % (11.5-14.5); White Blood Cell Count 5.8 10^3/uL (4.8-10.8)
[2023-12-17 07:59] LABS: Glucose - Point of Care 91 mg/dl (70-99)
[2023-12-17 08:18] LABS: Blood Urea Nitrogen 44 mg/dl (7-17); Calcium 8.1 mg/dl (8.4-10.2); Carbon Dioxide 27 mmol/L (22-30); Chloride 107 mmol/L (98-107); Estimated Creatinine Clearance 35 ml/min; Glucose 81 mg/dl (70-99); Potassium 4.5 mmol/L (3.5-5.1); Sodium 140 mmol/L (135-145); eGFR 35.01
--- NOTE | 2023-12-17 08:25 | WOUNDNOTE ---
[facility] RN note: Spoke with MARY Iqbal who confirmed patient was switched to an air bed.
[2023-12-17] MEDS: LASIX 60 MG IV ×2 (08:43→17:31)
[2023-12-17] MEDS: ASPIR LOW (ENTERIC COATED) 81 MG PO (08:47)
[2023-12-17] MEDS: TOPROL XL 25 MG PO (08:47)
[2023-12-17] MEDS: SORBITRATE 30 MG PO (08:47)
[2023-12-17] MEDS: KCL 20 MEQ PO ×2 (08:47→20:45)
[2023-12-17] MEDS: LIPITOR 20 MG PO (08:47)
[2023-12-17] MEDS: DESENEX/MITRAZOL/ZEASORB 1 APPLIC TOPICAL ×2 (08:48→20:45)
[2023-12-17] MEDS: HYDROPHOR 1 APPLIC TOPICAL (08:48)
--- NOTE | 2023-12-17 10:55 | CM ---
Carmen was seen in bed today. She would like to return home and is refusing to consider a short SNF stay. She is known to [facility] and will resume services at home when she is discharged.
Carmen's daughter has been in touch with the [facility] for additional help at home (waiver services). I spoke with her yesterday and encouraged her to follow up with the [facility] to get services started.
[2023-12-17 11:20] VITALS: BP 126/55
--- NOTE | 2023-12-17 11:31 | W.PN.HOSP.TC ---
Addendum entered and electronically signed by Holly Christian MD 12/17/23 14:57:
.
Original Note:
Documented by User: Gilmar Can MD, Resident 12/17/23 11:37
Today's Communication/Plan
-
* Wean O2 down to 2L (baseline) as tolerated.
* Check UA.
* PT/OT evaluation; she has declined SNF previously.
Assessment / Plan
Assessment / Plan
Assessment
Patient is an 78y F with PMH significant for CHF, COPD, morbid obesity and chronic lymphedema who presents to ED for evaluation of confusion. Patient states that her daughter brought her in because the patient was acting confused. Patient
states that she was sleeping a lot today and she was 'dreaming'. Daughter noted that she was reaching for objects that were not present and was talking nonsense (patient relates this was her speaking in her dream). Patient was brought to the ED
for further evaluation and treatment. ED staff notes that she was initially somnolent. At the time of my exam she is awake, alert and oriented and able to provide detailed history without difficulty. She denies any chest pain or palpitations. She
denies any new / worsened SOB. She uses 2 lpm of NC oxygen at home at all times. She states that her weight has been stable at home and her weight here today is consistent with her previously stated 'dry weight'. She does note that she has not been
urinating as much as she typically does. In addition, she states that she likely missed a few doses of her Lasix this week. She states that there have been work crews painting in her house over the past week - which has somewhat thrown her off her
routine.
Impression
* Toxic metabolic encephalopathy
* Acute on chronic heart failure with midrange ejection fraction
* Valvular heart disease
* Chronic hypoxemic respiratory insufficiency
* Chronic obstructive pulmonary disease without acute exacerbation
* Essential hypertension
* Type II diabetes mellitus
* Hyperlipidemia
* Chronic kidney disease, stage IIIb
* Anemia of renal disease
* Chronic lymphedema
* Sacral wound, stage II
* Morbid obesity
* Obstructive sleep apnea
Plan
Toxic metabolic encephalopathy
- Admit for further evaluation and treatment.
- No significant change in hypoxemia or other acute / focal complaints.
- ? if confusion is related to exposure to paint fumes in the home over the past week or so?
- Seems significantly improved here since arrival.
- Treat chronic / other issues as noted below.
- Follow for any new / recurrent confusion or hallucinations.
Acute on chronic heart failure with midrange ejection fraction
Valvular heart disease
- CXR shows increased pulmonary markings and pos JVD noted on exam.
- Oxygenation appears to be at baseline. Patient denies any subjective increase in dyspnea.
- Weight is stable from prior admission and BNP is equivocal compared to prior values.
- Patient does report decreased urine output despite Lasix at home - and admits to missed doses this past week.
- IV Lasix BID for now.
- Follow I/Os, daily weights, etc and return to usual oral dosing in a day or two.
- Holding parameters for BP meds / hold hydralazine for now to allow effective diuresis (BP on the lower side on arrival).
- Continue other GDMT.
Chronic hypoxemic respiratory insufficiency
Chronic obstructive pulmonary disease without acute exacerbation
- Stable. Saturations acceptable on usual 2 lpm of supplemental oxygen.
- Continue O2 support, Advair, etc.
- Patient apparently cannot tolerate albuterol nebs.
- Follow for any new / worsening symptoms.
Essential hypertension
- BP currently on the lower side.
- Hold hydralazine / holding parameters for other BP medications.
- Adjust regimen as needed for adequate control.
Type II diabetes mellitus
- Stable. Apparently on repaglinide PRN at home. Will hold this for now.
- Follow glucose and cover with SSI as needed.
Chronic kidney disease, stage IIIb
- Stable. SCr at / near known baseline.
- Follow for changes with diuresis.
Anemia of renal disease
- Stable. Hgb at / near known baseline.
- Follow for changes.
Chronic lymphedema
Sacral Wound, stage II
- Wound Care eval for local care recommendations.
- LEs do not appear to be acutely infected at present.
- Observe off of systemic abx for now.
- Followed at [facility] as an outpatient.
Morbid obesity
Obstructive sleep apnea
- Affects all aspects of care.
- Encourage healthy diet / increased activity as tolerated with goal of weight loss.
- Not compliant with PAP therapy x several years.
- Will try C-PAP tonight.
DVT prophylaxis
- Enoxaparin sodium.
Code status
- Full.
Anticipated Discharge: Within 24 hours
Subjective/Interval History
-
Date of Service: December 17, 2023
Objective Data
-
Labs:
Laboratory Results
12/17/23
07:01
WBC 5.8
Hgb 9.9 L
Hct 32.0 L
Plt Count 216
Sodium 140
Potassium 4.5
Chloride 107
Carbon Dioxide 27
BUN 44 H
Creatinine 1.5 H
Glucose 81
Calcium 8.1 L
Vital Signs:
Vital Signs
Temp Pulse Resp BP Pulse Ox
97.3 F 59 22 126/55 96
12/17/23 11:20 12/17/23 11:20 12/17/23 11:20 12/17/23 11:20 12/17/23 11:20
I&O
12/16/23 12/17/23 12/18/23
06:59 06:59 06:59
Intake Total 240 / 240 720 / 720
Output Total 200 / 200 600 / 600
Balance 40 / 40 120 / 120
Review of Systems
-
Constitutional: Reports No Symptoms
EENT: Reports No Symptoms Reported
Respiratory: Reports Other (2L O2 via NS (baseline))
Cardiac: Reports No Symptoms
Abdomen/GI: Reports No Symptoms
Genitourinary: Reports No Symptoms
Musculoskeletal: Reports Edema (chronic bilateral lower extremity)
Skin: Reports Other (multiple ulcers and sores)
Neuro: Reports No Symptoms
Endocrine: Reports No Symptoms
Hematologic / Lymphatic: Reports No Symptoms
Allergy / Immunology: Reports No Symptoms
Physical Exam
-
General: No Apparent Distress and Comfortable
HEENT: Normocephalic, Atraumatic, Moist Mucous Membranes and Anicteric
Respiratory: Non Labored Respirations and Decreased Breath Sounds (mildly at bases)
Cardiac: Regular Rhythm, S1/S2 and Murmur (2/6 systolic ejection)
Breast: Deferred by me
GI: Soft, Nontender and Nondistended
Genito-urinary: No Costovertebral Tender
Musculoskeletal: No Clubbing, No Cyanosis, Edema, Right Lower Extrem and Edema, Left Lower Extrem
Skin: Warm, Ulcers, Decubitus Ulcers and IV Access / Catheter Site
Neuro: Awake, Alert, Oriented and Nonfocal/Grossly Intact
Psych: Calm

Documented by User: Holly Christian MD 12/17/23 12:31
Assessment / Plan
Assessment / Plan
Seen and examined the patient with the resident, formulated plan together. Agree with notes except for the difference in documentation
CVS: S1-S2 normal,sm at apex
Chest: CTA B/L
Abdomen: Soft, NT , Bowel sounds present
Extremities: Chronic venous stasis changes bilateral lower extremity with skin thickening
Bilateral lower extremity wounds noted with mild discharge on the right side clear fluid
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
Echo 10/01/2023-normal LV size. Moderate to severe concentric LVH. Global hypokinesis. Mildly reduced LV systolic function. EF 45 to 50%. Stage II diastolic dysfunction. Mildly dilated RV with low normal RV systolic function. Mild to moderate
AAS. Mild AI. Mild to moderate TR.
# TME
Patient seems to be back at baseline
There is also note on admission seeing that she was exposed to paint fumes in the home
Check urinalysis with reflex to culture to complete workup-would need a straight cath
# Acute on chronic heart failure with mildly reduced ejection fraction
Valvular heart disease
Chest x-ray reviewed by me shows pulmonary edema
Slightly high oxygen requirement weaned down to 2 L which is patient's normal
Weight seems to be less than goal weight today on standing scale
Continue Lasix IV twice daily
Intake output charting Daily weights
CHF education
Continue metoprolol
She is not on Arni, KAROLINA or ARB-likely secondary to renal failure and intolerance (SOB)
Not on SGLT2 inhibitors-by her choice-per discussion with cardiology
Also noncompliance listed with medicines/diet
Patient is noncompliant with office visits with cardiology
#Admission with HFmrEF 10/01/23
Admission for HF 09/16/23
Admission for acute HF 08/28/23
# Acute on chronic hypoxic respiratory failure -Wean oxygen as tolerated
# Asthma/Restrictive lung disease. without exacerbation
# Hypertension continue metoprolol
# Diabetes-on repaglinide as outpatient which is on hold here
Sugars are stable likely because of controlled diet
On sliding scale coverage with Accu-Cheks
HbA1C 5.7 not reliable with anemia.
# CKD stage III-creatinine stable
# Anemia of CKD-Check Iron studies
# Chronic lymphedema lower extremity with venous stasis ulcers and venous stasis changes
# Stage II sacral pressure injury-wound care
# Morbid obesity
# Peripheral Neuropathy
# Cholelithiasis
# History of nodular goiter-outpatient follow-up
# History of pancreatic lesion 08/2016-OP Follow up
# Hepatic steatosis-Op Follow up
# H/O DVT 2003
# Sleep apnea-continue CPAP
# DVT prophylaxis-Lovenox
# Full code
D/W cardiology
D/W Daughter on the phone and updated in detail.
time spent over 50 min
Assessment
Patient is an 78y F with PMH significant for CHF, COPD, morbid obesity and chronic lymphedema who presents to ED for evaluation of confusion. Patient states that her daughter brought her in because the patient was acting confused. Patient
states that she was sleeping a lot today and she was 'dreaming'. Daughter noted that she was reaching for objects that were not present and was talking nonsense (patient relates this was her speaking in her dream). Patient was brought to the ED
for further evaluation and treatment. ED staff notes that she was initially somnolent. At the time of my exam she is awake, alert and oriented and able to provide detailed history without difficulty. She denies any chest pain or palpitations. She
denies any new / worsened SOB. She uses 2 lpm of NC oxygen at home at all times. She states that her weight has been stable at home and her weight here today is consistent with her previously stated 'dry weight'. She does note that she has not been
urinating as much as she typically does. In addition, she states that she likely missed a few doses of her Lasix this week. She states that there have been work crews painting in her house over the past week - which has somewhat thrown her off her
routine.
Impression
* Toxic metabolic encephalopathy
* Acute on chronic heart failure with midrange ejection fraction
* Valvular heart disease
* Chronic hypoxemic respiratory insufficiency
* Chronic obstructive pulmonary disease without acute exacerbation
* Essential hypertension
* Type II diabetes mellitus
* Hyperlipidemia
* Chronic kidney disease, stage IIIb
* Anemia of renal disease
* Chronic lymphedema
* Sacral wound, stage II
* Morbid obesity
* Obstructive sleep apnea
Plan
Toxic metabolic encephalopathy
- Admit for further evaluation and treatment.
- No significant change in hypoxemia or other acute / focal complaints.
- ? if confusion is related to exposure to paint fumes in the home over the past week or so?
- Seems significantly improved here since arrival.
- Treat chronic / other issues as noted below.
- Follow for any new / recurrent confusion or hallucinations.
Acute on chronic heart failure with midrange ejection fraction
Valvular heart disease
- CXR shows increased pulmonary markings and pos JVD noted on exam.
- Oxygenation appears to be at baseline. Patient denies any subjective increase in dyspnea.
- Weight is stable from prior admission and BNP is equivocal compared to prior values.
- Patient does report decreased urine output despite Lasix at home - and admits to missed doses this past week.
- IV Lasix BID for now.
- Follow I/Os, daily weights, etc and return to usual oral dosing in a day or two.
- Holding parameters for BP meds / hold hydralazine for now to allow effective diuresis (BP on the lower side on arrival).
- Continue other GDMT.
Chronic hypoxemic respiratory insufficiency
Chronic obstructive pulmonary disease without acute exacerbation
- Stable. Saturations acceptable on usual 2 lpm of supplemental oxygen.
- Continue O2 support, Advair, etc.
- Patient apparently cannot tolerate albuterol nebs.
- Follow for any new / worsening symptoms.
Essential hypertension
- BP currently on the lower side.
- Hold hydralazine / holding parameters for other BP medications.
- Adjust regimen as needed for adequate control.
Type II diabetes mellitus
- Stable. Apparently on repaglinide PRN at home. Will hold this for now.
- Follow glucose and cover with SSI as needed.
Chronic kidney disease, stage IIIb
- Stable. SCr at / near known baseline.
- Follow for changes with diuresis.
Anemia of renal disease
- Stable. Hgb at / near known baseline.
- Follow for changes.
Chronic lymphedema
Sacral Wound, stage II
- Wound Care eval for local care recommendations.
- LEs do not appear to be acutely infected at present.
- Observe off of systemic abx for now.
- Followed at [facility]ound Care as an outpatient.
Morbid obesity
Obstructive sleep apnea
- Affects all aspects of care.
- Encourage healthy diet / increased activity as tolerated with goal of weight loss.
- Not compliant with PAP therapy x several years.
- Will try C-PAP tonight.
DVT prophylaxis
- Enoxaparin sodium.
Code status
- Full.
[2023-12-17 11:44] LABS: Glucose - Point of Care 192 mg/dl (70-99)
[2023-12-17 11:45] LABS: Iron 29 ug/dl (37-170)
[2023-12-17 11:54] LABS: Percent Saturation 16 % (20-50); Total Iron Binding Capacity 180 ug/dl (265-497)
--- NOTE | 2023-12-17 12:48 | VNURNOTE ---
[facility] resumption of care completed in [facility] after review of chart and discussion with patient. Patient confirms having [facility] contact number.
[2023-12-17 13:15] LABS: Vitamin B12 591 pg/ml (239-931)
--- NOTE | 2023-12-17 14:15 | PN.CDI ---
CDI
- -
CDI:
Physician Documentation Request
Admit Date: 12/15/23 20:09
Dear Doctor Pamella,
Please review the following and provide your response in the progress notes.
Due to conflicting documentation, please clarify the stage of the sacral pressure injury...:
Clinical Indicators:
12/16/23 12:40 - Wound Note
#Wound Location and type/assessment:
#Bilateral buttocks and posterior thighs
#...with deep dermal vs stage 3 pressure injuries.
PN, 12/16
#Sacral Wound, stage II
Physician documentation of the type and location of wounds is required for compliant documentation. Based on the above clinical findings and your assessment, please provide the following in your progress note:
Yes, Stage II vs. Stage III pressure injury bilateral buttocks and posterior thighs, POA
No, Stage II vs Stage III pressure injury bilateral buttocks and posterior thighs
Other(please specify)
1. Location of the ulcer/wound, including laterality.
2. Type (etiology) of ulcer/wound:
- Diabetic ulcer
- Arterial (ischemic) ulcer
- Traumatic wound
- Venous stasis ulcer
- Pressure (decubitus) ulcer
3. If a pressure ulcer, please also include the stage* of the ulcer:
- Stage 1 - Skin intact, non-blanchable redness
- Stage 2 - Partial thickness loss of dermis, includes intact or open blister
- Stage 3 - Full thickness tissue not including bone, tendon or muscle
- Stage 4 - Full thickness tissue loss, including exposed bone, tendon or muscle
Use of terms such as suspected, likely, concern for, or probable (associated with a specific diagnosis that is being evaluated, monitored, or treated as if it exists) are acceptable and can be coded in the inpatient setting, when documented at the
time of discharge.
Thank you,
Kori Cortés RN BSN CCDS
CDI Specialist
please contact via tiger text
Please use your independent medical judgment in providing your response.
*Source: National Pressure Ulcer Advisory Panel (NPUAP)
[2023-12-17 15:20] VITALS: BP 120/55
[2023-12-17 16:41] LABS: Urine Albumin Negative (Neg - Trace); Urine Bilirubin Negative (Negative); Urine Character Clear (Clear); Urine Color Yellow; Urine Glucose Negative (Negative); Urine Ketone Negative (Negative); Urine Leukocyte Negative (Negative); Urine Nitrite Negative (Negative); Urine Occult Blood Negative (Negative); Urine Specific Gravity 1.015 (<1.030); Urine Urobilinogen Negative (Neg - 1+)
[2023-12-17 17:27] LABS: Glucose - Point of Care 141 mg/dl (70-99)
[2023-12-17] MEDS: LOVENOX 40 MG SC (17:30)
[2023-12-17 19:51] VITALS: BP 109/52
[2023-12-17 21:33] LABS: Glucose - Point of Care 142 mg/dl (70-99)
[2023-12-17 23:16] VITALS: BP 115/50
[2023-12-18 03:12] VITALS: BP 121/56
[2023-12-18 04:39] VITALS: BMI 41.7
[2023-12-18 07:03] LABS: Glucose - Point of Care 82 mg/dl (70-99)
[2023-12-18 07:10] VITALS: BP 117/57
[2023-12-18] MEDS: ADVAIR HFA 115/21 MCG INHALER 2 PUFF INH (07:25)
[2023-12-18 07:34] LABS: % Basophils 0.8 % (0-2); % Eosinophils 10.3 % (0-6); % Immature Granulocytes 0.3 % (0-0.5); % Monocytes 11.3 % (1.7-9.3); % Neutrophils 67.3 % (42.2-75.2); Absolute Basophils 0.1 10^3/uL (0-0.2); Absolute Eosinophils 0.6 10^3/uL (0-0.7); Absolute Lymphocytes 0.6 10^3/uL (1.2-3.4); Absolute Monocytes 0.7 10^3/uL (0.1-0.6); Absolute Neutrophils 4.1 10^3/uL (1.4-6.5); Hematocrit 34.2 % (37.0-47.0); Hemoglobin 10.3 g/dL (12.0-16.0); Mean Corp Hgb Conc. 30.1 g/dL (33.0-37.0); Mean Corpuscular Hgb 25.8 pg (27.0-31.0); Mean Corpuscular Volume 85.7 fL (81.0-99.0); Mean Platelet Volume 9.4 fL (7.4-10.4); Nucleated Red Blood Cells % 0 %; Platelet Count 215 10^3/uL (130-400); Red Blood Cell Count 3.99 10^6/uL (4.20-5.40); Red Cell Dist. Width 17.3 % (11.5-14.5); White Blood Cell Count 6.1 10^3/uL (4.8-10.8)
[2023-12-18 07:51] LABS: Blood Urea Nitrogen 42 mg/dl (7-17); Calcium 8.2 mg/dl (8.4-10.2); Carbon Dioxide 28 mmol/L (22-30); Chloride 107 mmol/L (98-107); Estimated Creatinine Clearance 38 ml/min; Glucose 82 mg/dl (70-99); Potassium 4.7 mmol/L (3.5-5.1); Sodium 140 mmol/L (135-145); eGFR 38.03
--- NOTE | 2023-12-18 08:31 | W.PN.HOSP.TC ---
Addendum entered and electronically signed by Holly Christian MD 12/18/23 17:50:
stage 2 sacral PI
Addendum entered and electronically signed by Holly Christian MD 12/18/23 10:55:
Seen and examined the patient with resident
Plan formulated together
Patient feels much better today she is down to 2 L of oxygen
No pedal edema
Weight is down to 235 pounds today. This is all-time low for her.
We discussed about heart failure including fluid restriction, salt restriction, weighing daily, keeping up with doctors appointments.
She has 3 scales at home, we discussed about using 1 consistently.
We will also schedule an appointment with cardiology prior to discharge.
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
Total discharge coordination time over 30 minutes.
Original Note:
Today's Communication/Plan
-
* Anticipated discharge today.
Assessment / Plan
Assessment / Plan
Assessment
Patient is an 78y F with PMH significant for CHF, COPD, morbid obesity and chronic lymphedema who presents to ED for evaluation of confusion. Patient states that her daughter brought her in because the patient was acting confused. Patient
states that she was sleeping a lot today and she was 'dreaming'. Daughter noted that she was reaching for objects that were not present and was talking nonsense (patient relates this was her speaking in her dream). Patient was brought to the ED
for further evaluation and treatment. ED staff notes that she was initially somnolent. At the time of my exam she is awake, alert and oriented and able to provide detailed history without difficulty. She denies any chest pain or palpitations. She
denies any new / worsened SOB. She uses 2 lpm of [place] oxygen at home at all times. She states that her weight has been stable at home and her weight here today is consistent with her previously stated 'dry weight'. She does note that she has not been
urinating as much as she typically does. In addition, she states that she likely missed a few doses of her Lasix this week. She states that there have been work crews painting in her house over the past week - which has somewhat thrown her off her
routine.
Impression
* Toxic metabolic encephalopathy
* Acute on chronic heart failure with midrange ejection fraction
* Valvular heart disease
* Chronic hypoxemic respiratory insufficiency
* Chronic obstructive pulmonary disease without acute exacerbation
* Essential hypertension
* Type II diabetes mellitus
* Hyperlipidemia
* Chronic kidney disease, stage IIIb
* Anemia of renal disease
* Chronic lymphedema
* Sacral wound, stage II
* Morbid obesity
* Obstructive sleep apnea
Plan
Toxic metabolic encephalopathy
- Admit for further evaluation and treatment.
- No significant change in hypoxemia or other acute / focal complaints.
- ? if confusion is related to exposure to paint fumes in the home over the past week or so?
- Seems significantly improved here since arrival.
- Treat chronic / other issues as noted below.
- Follow for any new / recurrent confusion or hallucinations.
- Resolved.
Acute on chronic heart failure with midrange ejection fraction
Valvular heart disease
- CXR shows increased pulmonary markings and pos JVD noted on exam.
- Oxygenation appears to be at baseline. Patient denies any subjective increase in dyspnea.
- Weight is stable from prior admission and BNP is equivocal compared to prior values.
- Patient does report decreased urine output despite Lasix at home - and admits to missed doses this past week.
- IV Lasix BID for now.
- Follow I/Os, daily weights, etc and return to usual oral dosing in a day or two.
- Holding parameters for BP meds / hold hydralazine for now to allow effective diuresis (BP on the lower side on arrival).
- Continue other GDMT.
Chronic hypoxemic respiratory insufficiency
Chronic obstructive pulmonary disease without acute exacerbation
- Stable. Saturations acceptable on usual 2 lpm of supplemental oxygen.
- Continue O2 support, Advair, etc.
- Patient apparently cannot tolerate albuterol nebs.
- Follow for any new / worsening symptoms.
Essential hypertension
- BP currently on the lower side.
- Hold hydralazine / holding parameters for other BP medications.
- Adjust regimen as needed for adequate control.
Type II diabetes mellitus
- Stable. Apparently on repaglinide PRN at home. Will hold this for now.
- Follow glucose and cover with SSI as needed.
Chronic kidney disease, stage IIIb
- Stable. SCr at / near known baseline.
- Follow for changes with diuresis.
Anemia of renal disease
- Stable. Hgb at / near known baseline.
- Follow for changes.
Chronic lymphedema
Sacral wound, stage II
- Wound Care eval for local care recommendations.
- LEs do not appear to be acutely infected at present.
- Observe off of systemic abx for now.
- Followed at Wound Care as an outpatient.
- BL LE ultrasound negative for DVT.
Morbid obesity
Obstructive sleep apnea
- Affects all aspects of care.
- Encourage healthy diet / increased activity as tolerated with goal of weight loss.
- Not compliant with PAP therapy x several years.
- Will try C-PAP tonight.
DVT prophylaxis
- Enoxaparin sodium.
Code status
- Full.
Anticipated Discharge: Today
Subjective/Interval History
-
Date of Service: December 18, 2023
Objective Data
-
Labs:
Laboratory Results
12/18/23
06:54
WBC 6.1
Hgb 10.3 L
Hct 34.2 L
Plt Count 215
Sodium 140
Potassium 4.7
Chloride 107
Carbon Dioxide 28
BUN 42 H
Creatinine 1.4 H
Glucose 82
Calcium 8.2 L
Vital Signs:
Vital Signs
Temp Pulse Resp BP Pulse Ox
97.7 F 62 16 117/57 95
12/18/23 07:10 12/18/23 07:26 12/18/23 07:26 12/18/23 07:10 12/18/23 07:26
I&O
12/17/23 12/18/23 12/19/23
06:59 06:59 06:59
Intake Total 720 / 720 600 / 600
Output Total 600 / 600 825 / 825
Balance 120 / 120 -225 / -225
Review of Systems
-
Constitutional: Reports No Symptoms
EENT: Reports No Symptoms Reported
Respiratory: Reports Other (2L O2 via NS (baseline))
Cardiac: Reports No Symptoms
Abdomen/GI: Reports No Symptoms
Genitourinary: Reports No Symptoms
Musculoskeletal: Reports Edema (chronic bilateral lower extremity)
Skin: Reports Other (multiple ulcers and sores)
Neuro: Reports No Symptoms
Endocrine: Reports No Symptoms
Hematologic / Lymphatic: Reports No Symptoms
Allergy / Immunology: Reports No Symptoms
Physical Exam
-
General: No Apparent Distress and Comfortable
HEENT: Normocephalic, Atraumatic, Moist Mucous Membranes and Anicteric
Respiratory: Non Labored Respirations and Decreased Breath Sounds (mildly at bases)
Cardiac: Regular Rhythm, S1/S2 and Murmur (2/6 systolic ejection)
Breast: Deferred by me
GI: Soft, Nontender and Nondistended
Genito-urinary: No Costovertebral Tender
Musculoskeletal: No Clubbing, No Cyanosis, Edema, Right Lower Extrem and Edema, Left Lower Extrem
Skin: Warm, Ulcers, Decubitus Ulcers and IV Access / Catheter Site
Neuro: Awake, Alert, Oriented and Nonfocal/Grossly Intact
Psych: Calm
[2023-12-18] MEDS: LASIX 60 MG IV (09:13)
[2023-12-18] MEDS: TOPROL XL 25 MG PO (09:14)
[2023-12-18] MEDS: SORBITRATE 30 MG PO (09:14)
[2023-12-18] MEDS: KCL 20 MEQ PO (09:14)
[2023-12-18] MEDS: LIPITOR 20 MG PO (09:14)
[2023-12-18] MEDS: ASPIR LOW (ENTERIC COATED) 81 MG PO (09:14)
[2023-12-18] MEDS: HYDROPHOR 1 APPLIC TOPICAL (09:15)
[2023-12-18] MEDS: DESENEX/MITRAZOL/ZEASORB 1 APPLIC TOPICAL (09:15)
[2023-12-18 11:10] VITALS: BP 120/59
--- NOTE | 2023-12-18 11:11 | W.DCSUMMARY ---
Discharge Summary
Discharge Data
Date of Admission: 12/15/23
Date of Discharge: 12/18/23
-
Pending Results: No
Hospital Course
Primary discharge diagnosis
* Toxic metabolic encephalopathy
Secondary discharge diagnoses
* Chronic heart failure with midrange ejection fraction
* Valvular heart disease
* Chronic hypoxemic respiratory insufficiency
* Chronic obstructive pulmonary disease without acute exacerbation
* Essential hypertension
* Type II diabetes mellitus
* Hyperlipidemia
* Chronic kidney disease, stage IIIb
* Anemia of renal disease
* Chronic lymphedema
* Sacral wound, stage II
* Morbid obesity
* Obstructive sleep apnea
Hospital course
Carmen Middleton, age 78, came to the emergency on 12-15-23 with confusion. Daughter noted that she was reaching for objects that were not present and was talking nonsense (patient relates this was her speaking in her dream). She was initially
somnolent in the ED, but was awake, alert and oriented by the time of evaluation by the admitting hospitalist. Denied any acute or overt changes to her health. She was admitted for further evaluation and examination. She has a history of MARIAMA and has
not been able to tolerate her C-PAP; her confusion was correlated to mild acute CO2 retention. A trial of C-PAP was attempted, but she had to stop after an hour. Mental and respiratory status has remained stable and at her baseline throughout her
hospital stay. Blood work and imaging have remained unremarkable and at baseline. She has not had an episode of confusion since her arrival to the ED, and vitals have remained stable. She was followed by wound care for her chronic issues.
At the time of her discharge, she was feeling well and was at baseline with her O2 via NS at 2L. She has follow-ups scheduled with wound care as an outpatient, and will be seen by cardiology within 1 week. Recommended to follow-up with pulmonary to
discuss alternatives to C-PAP or to use other masks which are not as constricting as her previous (she has only used one type, per patient). Follow-up with PCP. She has home PT and OT set up already, and we will arrange VN visits as well. She also
gets wound care help at home.
Discharge Plan
-
Patient Disposition: Home with Home Care
Discharge Diagnosis/Procedures: Toxic metabolic encephalopathy
Condition: Good
Diet: 2 Gram Sodium and Restrict fluids to 48 oz
Activity: With assistance and As tolerated
Driving Restrictions: No driving
Bathing Restrictions: OK to Shower
Blood Work: BMP in 1 week
Other Services: VN
Specialty Instructions: Weigh Daily- Call MD for wt gain/loss 3 lbs overnight/5 lbs in 1 week
Activity Restrictions/Additional Instructions:
Wound Care Instructions
LE wounds-clean with saline or Vashe wound cleanser, Aquaphor ointment to dry skin le's, honey gel, alginate (add adaptic prn adherent dressing), ABD pad, secure with Kerlix, change daily and prn drainage.
Buttocks/posterior thigh wounds-clean with saline or soap and water, no sting barrier wipe to surrounding skin, silicone border foam, change daily. If foam ineffective, apply honey gel or Vaseline, ABD pad secure with minimal silicone tape daily and
prn soilage instead.
Miconazole powder to abdominal/groin folds, affected areas bid.
Bilateral knee high Shilo wraps as tolerated; may remove at bedtime; rewrap every am.
Evaluate for air mattress.
Elevate heels off bed with pillows.
Pressure redistributing chair cushion (i.e. Bariatric air chair cushion).
Follow up at wound care center call for an appointment.
Follow-up with your primary physician for follow-up on the pancreatic cyst, nodules in the thyroid, fatty liver
Work up of anemia. See PCP and GI Doctor.
Weight loss advised.
Follow-up with pulmonology to explore different mask options for C-PAP
Instructions: Toxic-metabolic encephalopathy, *[facility] Heart Failure Instructions
Referrals:
Miguel Bella, DO [Family Provider] - in two weeks
Maverick Ott MD [Active] - in one week
Edi Wayne MD [Active] - in one month (C-PAP alternatives/mask options)
[facility] [Active [facility]] -
Prescriptions:
Continued
metolazone 2.5 mg Tablet
2.5 mg PO RYAN
atorvastatin 20 mg Tablet
20 mg PO DAILY
Patient Comments:
12/15/2023, daughter unsure whether morning or evening med.
miconazole nitrate [Miconazorb AF] 2 % Powder
1 applic TOPICAL BID
therapeutic multivitamin Tablet
1 tab PO DAILY
Patient Comments:
12/15/2023, daughter unsure whether morning or evening vitamin.
aspirin 81 mg Tablet,Delayed Release (Dr/Ec)
81 mg PO DAILY
Patient Comments:
12/15/2023, daughter unsure whether morning or evening med.
acetaminophen 650 mg Tablet Extended Release
1,300 mg PO BIDPRN PRN (Reason: mild pain)
isosorbide dinitrate 30 mg Tablet
30 mg PO DAILY
Patient Comments:
12/15/2023, daughter unsure whether morning or evening med.
potassium chloride 20 mEq Tablet,Er Particles/Crystals
20 meq PO BID
repaglinide 0.5 mg Tablet
0.5 mg PO BIDPRN PRN (Reason: high blood sugar)
furosemide 80 mg Tablet
80 mg PO BID
lidocaine 5 % Adhesive Patch,Medicated
2 patch TOPICAL DAILY PRN (Reason: B/L shoulders)
Patient Comments:
12/15/2023, 1 patch per shoulder dailyprn.
ammonium lactate 12 % Cream
1 applic TOPICAL BID
Patient Comments:
12/15/2023, wound care.
hydralazine 50 mg Tablet
50 mg PO BID
metoprolol succinate 25 mg Tablet Extended Release 24 Hr
25 mg PO DAILY
Patient Comments:
12/15/2023, daughter unsure whether morning or evening med.
fluticasone propion-salmeterol [Advair HFA] 115-21 mcg/actuation Hfa Aerosol Inhaler
2 puff INHALATION R BID
Patient Comments:
12/15/2023, pt. cannot have generic form per daughter; pt. reacts negatively to it.
Skintegrity
1 applic topical BID
Patient Comments:
12/15/2023, wound care.
Ultra Collagen + C
1 tab PO DAILY
Patient Comments:
12/15/2023, daughter unsure whether morning or evening vitamin; 1000-10 mg tablet.
diclofenac sodium 1 % gel
1 applic topical Q6HPRN PRN (Reason: B/L knees)
Discharge Orders:
Discharge Patient (As Directed); Ordered 12/18/23
Ordered By: Gilmar Can
Discharge Date and Time
Print Language: AUSTRALIAN
[2023-12-18 11:33] LABS: Glucose - Point of Care 145 mg/dl (70-99)
--- NOTE | 2023-12-18 11:54 | CM ---
Chart reviewed and patient is for discharge to home today with [facility], family to bring in patient's oxygen and assist with transport to home.
Plan: Home with [facility].
== END 2023-12-18 14:17 | disposition home health service (06) | DRG 291 ==
LOC: 4 EAST ACU 20:09
PROVIDERS: Internal Medicine; Student in an Organized Health Care Education/Training Program; ADMITTING PHYSICIAN Hospitalist; ATTENDING PHYSICIAN Hospitalist; EMERGENCY PHYSICIAN Emergency Medicine; FAMILY PHYSICIAN Family Medicine
PROC: 5A09357 Assistance with Respiratory Ventilation, Less than 24 Consecutive Hours, Continuous Positive Airway Pressure (ICD-10-PCS; 2023-12-16)
DX: I13.0 Hypertensive heart and chronic kidney disease with heart failure and stage 1 through stage 4 chronic kidney disease, or unspecified chronic kidney disease (principal); G92.8 Other toxic encephalopathy; I50.23 Acute on chronic systolic (congestive) heart failure; J96.21 Acute and chronic respiratory failure with hypoxia; Z68.41 Body mass index [BMI] 40.0-44.9, adult; J44.9 Chronic obstructive pulmonary disease, unspecified; E78.00 Pure hypercholesterolemia, unspecified; E11.9 Type 2 diabetes mellitus without complications; I89.0 Lymphedema, not elsewhere classified; G43.909 Migraine, unspecified, not intractable, without status migrainosus; E66.01 Morbid (severe) obesity due to excess calories; E11.42 Type 2 diabetes mellitus with diabetic polyneuropathy; E11.22 Type 2 diabetes mellitus with diabetic chronic kidney disease; N18.32 Chronic kidney disease, stage 3b; D63.1 Anemia in chronic kidney disease; L89.152 Pressure ulcer of sacral region, stage 2; I87.8 Other specified disorders of veins; G47.33 Obstructive sleep apnea (adult) (pediatric); Z99.81 Dependence on supplemental oxygen; Z86.718 Personal history of other venous thrombosis and embolism; Z87.01 Personal history of pneumonia (recurrent); Z91.148 Patient's other noncompliance with medication regimen for other reason; Z91.119 Patient's noncompliance with dietary regimen due to unspecified reason; Z83.3 Family history of diabetes mellitus; Z82.49 Family history of ischemic heart disease and other diseases of the circulatory system; Z88.8 Allergy status to other drugs, medicaments and biological substances; Z88.6 Allergy status to analgesic agent; Z88.1 Allergy status to other antibiotic agents; Z91.040 Latex allergy status; Z79.82 Long term (current) use of aspirin; Z79.51 Long term (current) use of inhaled steroids; Z79.84 Long term (current) use of oral hypoglycemic drugs; Z91.199 Patient's noncompliance with other medical treatment and regimen due to unspecified reason
CPT/HCPCS: 71046; 80048; 80053; 81003; 82607; 82728; 82805; 82962; 83036; 83540; 83550; 83880; 84484; 85025; 85027; 87070; 93005; 93970; 94640; 94660; 96374; 97110; 97162; 97166; 99285

== ENCOUNTER 2023-12-21 18:53 | Inpatient (IN) | payer MEDICARE, OTHER, SELFPAY ==
[2023-12-21] VITALS (19 sets, daily range): BP systolic 79–124; BP diastolic 37–90; BMI 42.4; BMI 42.8
[2023-12-21 14:27] LABS: % Basophils 0.5 % (0-2); % Eosinophils 0.1 % (0-6); % Immature Granulocytes 1.4 % (0-0.5); % Lymphocytes 1.4 % (20.5-51.1); % Monocytes 4.5 % (1.7-9.3); Absolute Basophils 0.1 10^3/uL (0-0.2); Absolute Immature Granulocytes 0.3 10^3/uL (0-0.05); Absolute Lymphocytes 0.3 10^3/uL (1.2-3.4); Absolute Monocytes 1.1 10^3/uL (0.1-0.6); Absolute Neutrophils 22.2 10^3/uL (1.4-6.5); Hematocrit 37.8 % (37.0-47.0); Hemoglobin 12.1 g/dL (12.0-16.0); Mean Corpuscular Hgb 26.3 pg (27.0-31.0); Mean Corpuscular Volume 82.2 fL (81.0-99.0); Nucleated Red Blood Cells % 0 %; Platelet Count 302 10^3/uL (130-400); Red Cell Dist. Width 17.6 % (11.5-14.5); White Blood Cell Count 24.1 10^3/uL (4.8-10.8)
--- NOTE | 2023-12-21 14:32 | ED.GENMED ---
History of Present Illness
<DAVID Martin - Last Filed: 12/21/23 20:02>
General
Chief Complaint: Breathing Problem
Exam Limitations: none
Time Seen by Provider: 12/21/23 14:32
Nursing documentation reviewed up to this point in time: agreed with
History of Present Illness
History of Present Illness:
Patient is an 78-year-old female presents to the ER for evaluation. Patient was recently here and admitted December 14 discharged December 17 3 days ago for toxic metabolic encephalopathy due to from retained CO2. She has a history of chronic heart
failure valve disease chronic hypoxic respiratory insufficiency COPD sleep apnea chronic kidney disease stage IIIb anemia type 2 diabetes hypertension.
It is documented that patient arrives from home via EMS. Patient is normally on 2 L nasal cannula.
Patient arrives awake alert when I asked patient why she is here she tells me that her daughter thought she was confused however she is awake alert oriented here. She has no complaints. She is on the telephone and furosemide 80 mg twice a day.
I spoke with David daughter over the phone who notes pt was confused earlier today .
Past History
<DAVID Martin - Last Filed: 12/21/23 20:02>
Past History
ED Past Medical History: Arrthythmia (Frequent PVCs), Asthma, CHF, COPD, HTN, Hypercholesterolemia, NIDDM, Other (Chronic lymphedema, Migraines, PNA, DVT, Anemia) and Other (Right lower extremity DVT October 2019)
ED Past Surgical History: Gynecological (Several D&Cs, miscarriage), Tonsilectomy and Other (Cancerous mass removed from right leg 20 years ago. Breast mass removed noncancerous. cataracts, )
Social History
Tobacco: Non-smoker
Alcohol: None
Drug: None
Personal:
Living: assisted living (She lives with her family but she is in rehab at this time at [facility])
Employment: Retired
Family History
Family History: Other (Noncontributory)
Review of Systems
<DAVID Martin - Last Filed: 12/21/23 20:02>
Review of Systems
Allergies reviewed?: Yes
Other source history: family
All Other Systems: ROS reviewed and negative except as documented in HPI and ROS
Constitutional: Denies fever
EENT: Reports no symptoms
Respiratory: Reports no symptoms
Cardiac: Reports no symptoms
Musculoskeletal: Reports no symptoms
Skin: Reports no symptoms
Neurological: Reports other (Confusion as per daughter)
Psychiatric: Reports no symptoms
Phy Exam
<DAVID Martin - Last Filed: 12/21/23 20:02>
General Physical Exam
General Presentation: no apparent distress
General age: appears stated age
General Skin: warm and dry
General Habitus: elderly
General Mental: alert
General Hydration: appears well hydrated
Cardiovascular Exam
Cardiovascular Exam: regular rate/rhythm, no murmur and normal peripheral pulses
Pulmonary Exam
Pulmonary Exam: lungs clear, no respiratory distress and other (On 2 L pulse ox 92-90% in no acute distress)
Neurological Exam
Neurological Exam: alert and oriented x3
Musculoskeletal Exam
Musculoskeletal Exam: full ROM and other (Patient with bilateral chronic thickened skin changes to lower extremities. Nurse reports that patient has wounds to bilateral buttocks)
Skin Exam
Skin Exam: normal color and warm/dry
Psychiatric Exam
Psychiatric Exam: normal mood/affect
Scores
<DAVID Martin - Last Filed: 12/21/23 20:02>
Heart Failure Risk
Heart Failure Risk Score: Not Applicable
Course
<DAVID Martin - Last Filed: 12/21/23 20:02>
Orders/Labs/Results
Orders:
Orders
12/21/23 14:05
Electrocardiogram (*1) Urgent
Reason for Study: Other
Other Reason for Exam: Possible Sepsis
Cardiac Monitoring- Treatment ONCE
EKG- Treatment ONCE
IV Insert/Care/Rem.- Treatment PRN
Straight cath- Treatment ONCE
CR Chest Portable - 1 View Urgent
Comment:
Reason For Exam: sob
Reason Study Needs to be Portable: Patient Unstable
O2 Therapy [RESP] Urgent
Titrate/Wean O2 to maintain O2 sat greater than (%): 93
Special Instructions: TO MAINTAIN CONTINUOUS O2 SATS > OR = 93%
Pulse Ox/cont/shift [RESP] Urgent
Quantity: 1
Special Instructions: CONTINUOUS
12/21/23 14:10
Complete Blood Count/With Diff Urgent
Comprehensive Metabolic Panel Urgent
Lactic Acid Q4H
Comment: ON ICE, CANCEL 2ND ORDER IF FIRST LACTIC ACID LEVEL <2
NT-proBNP Urgent
Comment: CARDIAC BNP ADDED ON BY FLOOR 4PM 12-21-23
Blood Culture Q30M
SAMEERA Source: Blood/Venous
Specimen Description:
Comment: FROM 2 SEPARATE SITES
Blood Culture Q30M
SAMEERA Source: Blood/Venous
Specimen Description:
Comment: FROM 2 SEPARATE SITES
12/21/23 14:43
Add On- LAB Urgent
Tests Added?: cardiac BNP
12/21/23 15:03
ABG [Arterial Blood Gas] Urgent
%Oxygen/Room Air: 28
12/21/23 15:59
Acetaminophen [Tylenol] 650 mg PO NOW STA
12/21/23 16:01
Add On- LAB Urgent
Tests Added?: cardiac BNP
Urinalysis Reflex To Culture Urgent
Date Specimen was Collected: 12/21/23
Time Specimen was Collected: 14:05
12/21/23 16:06
Wound Culture [Wound/Abscess/Other Culture] Urgent
SAMEERA Source: Buttock
Specimen Description:
Date Specimen was Collected: 12/21/23
Time Specimen was Collected: 16:12
12/21/23 16:23
Piperacillin/Tazo 3.375 Gram [Zosyn] 3.375 gram in 50 ml IV NOW
12/21/23 16:35
Vancomycin [Vancocin] 2,000 mg 0.9% Sodium Chloride 500 ml [Nss] 500 ml IV NOW
12/21/23 17:39
0.9% Sodium Chloride 250 ml [Nss] 250 ml IV BOLUS
12/21/23 17:44
Midodrine [ProAmatine] 5 mg PO NOW STA
Midodrine [ProAmatine] 5 mg PO Q4HPRN PRN
12/21/23 17:49
Admit/Transfer Patient As Directed
Co-Sign Provider:
Level of Care: Inpatient admission
Assign to:: IMU- Intermediate Care
Physician / Group: lila ramsay
Diagnosis: Sepsis, pneumonia
Reason for Hospitalization: Sepsis, pneumonia
Expected length of stay greater than two midnights?: Yes
ELOS- Estimated Length of Stay in days: 3
I certify the patient meets the requirements for IP care: Yes
12/21/23 17:54
Code Status As Directed
Resuscitation Status: Full Code
12/21/23 18:15
Lactic Acid Q4H
Comment: ON ICE, CANCEL 2ND ORDER IF FIRST LACTIC ACID LEVEL <2
NORepinephrine 4 MG/250 ML [Levophed] 4 mg in 250 ml IV PER PROTOCOL
Initial dose in mcg/min, then titrate:: 2
Titrate to keep:: MAP > 65 mmHg
Titrate by mcg/min:: 1-2 mcg/min
Frequency of titrations (minutes):: 5
Maximum dose in ICU in mcg/min:: 30
Maximum dose in IMU in mcg/min:: 8
Maximum dose in IVU in mcg/min:: 4
Begin to taper infusion when:: Remained at goal for 4hrs
Taper by mcg/min:: 1-2 mcg/min
Frequency of taper (minutes) if patient maintains goal:: 30
Taper to off?: Yes
If infusion off & no longer maintaining goal:: Contact Provider
12/21/23 19:02
COVID-19 Antigen Urgent
Source: Nasal Swab
Influenza A+B Rapid Molecular Urgent
SAMEERA Source: Nasal Swab
Specimen Description:
Abnormal Lab Results
12/21/23 12/21/23
14:10 15:03
WBC 24.1 H 10^3/uL
(4.8-10.8)
MCH 26.3 L pg
(27.0-31.0)
MCHC 32.0 L g/dL
(33.0-37.0)
RDW 17.6 H %
(11.5-14.5)
Abs Immat Gran (auto) 0.3 H 10^3/uL
(0-0.05)
Absolute Neuts (auto) 22.2 H 10^3/uL
(1.4-6.5)
Absolute Lymphs (auto) 0.3 L 10^3/uL
(1.2-3.4)
Absolute Monos (auto) 1.1 H 10^3/uL
(0.1-0.6)
Immature Gran % 1.4 H %
(0-0.5)
Neutrophils % 92.1 H %
(42.2-75.2)
Lymphocytes % 1.4 L %
(20.5-51.1)
pH 7.47 H
(7.35-7.45)
pCO2 36 H mmHg
(32-35)
ABG O2 Sat (Measured) 99.2 H %
(94-98)
BUN 42 H mg/dl
(7-17)
Creatinine 1.5 H mg/dL
(0.6-1.0)
Glucose 130 H mg/dl
(70-99)
Lactic Acid 3.6 H mmol/L
(0.7-2.0)
Alkaline Phosphatase 142 H U/L
(38-126)
12/21/23 14:10
12/21/23 14:10
Vital Signs
Initial and Last Documented VS:
Initial Vital Signs
Pulse Resp Pulse Ox
90 24 99
12/21/23 14:06 12/21/23 14:06 12/21/23 14:06
Last Documented Vital Signs
Temp Pulse Resp BP Pulse Ox
102.8 F H 74 16 103/52 87
12/21/23 16:05 12/21/23 19:05 12/21/23 17:45 12/21/23 19:05 12/21/23 17:45
Slicing Machine Tender consulted with Physician
Slicing Machine Tender consulted with physician?: Yes
Name of Physician Consulted: erik
<Syed Lin, DO - Last Filed: 12/21/23 16:30>
Orders/Labs/Results
Orders:
Orders
12/21/23 14:05
Electrocardiogram (*1) Urgent
Reason for Study: Other
Other Reason for Exam: Possible Sepsis
Cardiac Monitoring- Treatment ONCE
EKG- Treatment ONCE
IV Insert/Care/Rem.- Treatment PRN
Straight cath- Treatment ONCE
CR Chest Portable - 1 View Urgent
Comment:
Reason For Exam: sob
Reason Study Needs to be Portable: Patient Unstable
O2 Therapy [RESP] Urgent
Titrate/Wean O2 to maintain O2 sat greater than (%): 93
Special Instructions: TO MAINTAIN CONTINUOUS O2 SATS > OR = 93%
Pulse Ox/cont/shift [RESP] Urgent
Quantity: 1
Special Instructions: CONTINUOUS
12/21/23 14:10
Complete Blood Count/With Diff Urgent
Comprehensive Metabolic Panel Urgent
Lactic Acid Q4H
Comment: ON ICE, CANCEL 2ND ORDER IF FIRST LACTIC ACID LEVEL <2
NT-proBNP Urgent
Comment: CARDIAC BNP ADDED ON BY FLOOR 4PM 12-21-23
Blood Culture Q30M
SAMEERA Source: Blood/Venous
Specimen Description:
Comment: FROM 2 SEPARATE SITES
Blood Culture Q30M
SAMEERA Source: Blood/Venous
Specimen Description:
Comment: FROM 2 SEPARATE SITES
12/21/23 14:43
Add On- LAB Urgent
Tests Added?: cardiac BNP
12/21/23 15:03
ABG [Arterial Blood Gas] Urgent
%Oxygen/Room Air: 28
12/21/23 15:59
Acetaminophen [Tylenol] 650 mg PO NOW STA
12/21/23 16:01
Add On- LAB Urgent
Tests Added?: cardiac BNP
Urinalysis Reflex To Culture Urgent
Date Specimen was Collected: 12/21/23
Time Specimen was Collected: 14:05
12/21/23 16:06
Wound Culture [Wound/Abscess/Other Culture] Urgent
SAMEERA Source: Buttock
Specimen Description:
Date Specimen was Collected: 12/21/23
Time Specimen was Collected: 16:12
12/21/23 16:23
Piperacillin/Tazo 3.375 Gram [Zosyn] 3.375 gram in 50 ml IV NOW
12/21/23 16:35
Vancomycin [Vancocin] 2,000 mg 0.9% Sodium Chloride 500 ml [Nss] 500 ml IV NOW
12/21/23 17:39
0.9% Sodium Chloride 250 ml [Nss] 250 ml IV BOLUS
12/21/23 17:44
Midodrine [ProAmatine] 5 mg PO NOW STA
Midodrine [ProAmatine] 5 mg PO Q4HPRN PRN
12/21/23 17:49
Admit/Transfer Patient As Directed
Co-Sign Provider:
Level of Care: Inpatient admission
Assign to:: IMU- Intermediate Care
Physician / Group: lila ramsay
Diagnosis: Sepsis, pneumonia
Reason for Hospitalization: Sepsis, pneumonia
Expected length of stay greater than two midnights?: Yes
ELOS- Estimated Length of Stay in days: 3
I certify the patient meets the requirements for IP care: Yes
12/21/23 17:54
Code Status As Directed
Resuscitation Status: Full Code
12/21/23 18:15
Lactic Acid Q4H
Comment: ON ICE, CANCEL 2ND ORDER IF FIRST LACTIC ACID LEVEL <2
NORepinephrine 4 MG/250 ML [Levophed] 4 mg in 250 ml IV PER PROTOCOL
Initial dose in mcg/min, then titrate:: 2
Titrate to keep:: MAP > 65 mmHg
Titrate by mcg/min:: 1-2 mcg/min
Frequency of titrations (minutes):: 5
Maximum dose in ICU in mcg/min:: 30
Maximum dose in IMU in mcg/min:: 8
Maximum dose in IVU in mcg/min:: 4
Begin to taper infusion when:: Remained at goal for 4hrs
Taper by mcg/min:: 1-2 mcg/min
Frequency of taper (minutes) if patient maintains goal:: 30
Taper to off?: Yes
If infusion off & no longer maintaining goal:: Contact Provider
12/21/23 19:02
COVID-19 Antigen Urgent
Source: Nasal Swab
Influenza A+B Rapid Molecular Urgent
SAMEERA Source: Nasal Swab
Specimen Description:
Abnormal Lab Results
12/21/23 12/21/23
14:10 15:03
WBC 24.1 H 10^3/uL
(4.8-10.8)
MCH 26.3 L pg
(27.0-31.0)
MCHC 32.0 L g/dL
(33.0-37.0)
RDW 17.6 H %
(11.5-14.5)
Abs Immat Gran (auto) 0.3 H 10^3/uL
(0-0.05)
Absolute Neuts (auto) 22.2 H 10^3/uL
(1.4-6.5)
Absolute Lymphs (auto) 0.3 L 10^3/uL
(1.2-3.4)
Absolute Monos (auto) 1.1 H 10^3/uL
(0.1-0.6)
Immature Gran % 1.4 H %
(0-0.5)
Neutrophils % 92.1 H %
(42.2-75.2)
Lymphocytes % 1.4 L %
(20.5-51.1)
pH 7.47 H
(7.35-7.45)
pCO2 36 H mmHg
(32-35)
ABG O2 Sat (Measured) 99.2 H %
(94-98)
BUN 42 H mg/dl
(7-17)
Creatinine 1.5 H mg/dL
(0.6-1.0)
Glucose 130 H mg/dl
(70-99)
Lactic Acid 3.6 H mmol/L
(0.7-2.0)
Alkaline Phosphatase 142 H U/L
(38-126)
12/21/23 14:10
12/21/23 14:10
Vital Signs
Initial and Last Documented VS:
Initial Vital Signs
Pulse Resp Pulse Ox
90 24 99
12/21/23 14:06 12/21/23 14:06 12/21/23 14:06
Last Documented Vital Signs
Temp Pulse Resp BP Pulse Ox
102.8 F H 74 16 103/52 87
12/21/23 16:05 12/21/23 19:05 12/21/23 17:45 12/21/23 19:05 12/21/23 17:45
<DAVID Martin - Last Filed: 12/21/23 20:02>
MDM/Problems Addressed
MDM/Problems Addressed:
Patient is an 78-year-old female who lives alone O2 dependent due to CHF COPD 2 L presents to the ER for evaluation. Daughter reported the patient was confused. Patient is awake alert she is aware that her daughter thought she was confused.
Patient apparently as per nurse had a low pulse ox here in the ER on her normal 2 L however during my exam she is been 93% on 2 L. She denies any actual shortness of breath. She however was found to be febrile at 102.8 and given Tylenol here her
white count was found to be elevated at 24,000 with a lactate of 3.6. Her blood pressure has been on the lower side at 100 /63. She does have a history of CHF and is not tachycardic , therefore one liter of fluid was ordered. Patient does have a
history apparently has CO2 retention however ABG done on 2 L shows a pCO2 of 36. Patient does have chronic renal disease and her creatinine is baseline 1.5. UA is negative for infection. Thank you chest x-ray does show a subtle area which is new
in the left upper lobe suspicious for pneumonia. Patient in addition has wounds to buttocks. Will culture wound treat for pneumonia. Pt will require admission.
<DAVID Martin - Last Filed: 12/21/23 20:02>
*Radiology
Radiology exam reviewed: radiology read reviewed
*Pulse Oximetry
Patient hypoxic: yes
*Critical Care Note
Total Time (30-74mins, 75-104mins- exclusive of procedures): Not Applicable
ED Attending Note
<DAVID Martin - Last Filed: 12/21/23 20:02>
-
Portions of this chart may have been created with voice recognition software.� Occasional wrong word or��sound alike� substitutions may have occurred due to the inherent limitations of voice recognition software.
<Syed Lin, DO - Last Filed: 12/21/23 16:30>
ED Attending Note
Patient seen and examined by attending physician: Yes
I performed the substantive portion of visit, reviewed & personally made and approve the management plan that is documented in note by myself or IQRA.: Yes
ED Attending Note:
I have seen and evaluated the patient with a [id number] encounter. I have spoken to the advance practicer provider and involved in the medical history, the physical exam, medical decision making.
Evaluation and management service: agree unless noted differently below.
Results interpretation: agree unless noted differently below.
Focused HPI: 78-year-old female presenting for increased shortness of breath and hypoxia. She was recently admitted for weakness and confusion
Physical exam: Dry mucous membranes. Skin warm. Questionable rhonchi
Medical Decision Making: Patient found to have significant leukocytosis and she is now febrile. Chest x-ray is concerning for pneumonia. Will treat with vancomycin and Zosyn given recent hospital admission
Discharge Plan
Departure
Patient Disposition: Admit
Date of Disposition: 12/21/23
Time of Disposition: 16:36
Admit to: Telemetry
Admit to doctor: hospitalist
Presentation/result/management discussed w/ accepting MD/DO: Hospitalist
Patient with high blood pressure during this ER visit?: No
Condition: Fair
Covid-19: Not Applicable
Discharge Problem:
Pneumonia, Fever, Decubitus ulcer of buttock
Interventions
Interventions:
*Risk Screen - Suicide Last Done: 12/21/23 14:06
*General Assessment Last Done: 12/21/23 14:06
*Neglect/Abuse Screening Last Done: 12/21/23 14:06
ED- Fall Risk Assessment Last Done: 12/21/23 14:15
ED- Cardiac Assessment Last Done: 12/21/23 14:15
ED- Pulmonary Assessment Last Done: 12/21/23 14:15
[2023-12-21 14:40] LABS: Lactic Acid 3.6 mmol/L (0.7-2.0)
[2023-12-21 14:41] LABS: ALT (SGPT) 16 U/L (0-35); AST (SGOT) 28 U/L (14-36); Albumin 3.8 g/dl (3.5-5.0); Alkaline Phosphatase 142 U/L (38-126); Blood Urea Nitrogen 42 mg/dl (7-17); Calcium 8.6 mg/dl (8.4-10.2); Carbon Dioxide 27 mmol/L (22-30); Chloride 102 mmol/L (98-107); Estimated Creatinine Clearance 37 ml/min; Glucose 130 mg/dl (70-99); Potassium 4.8 mmol/L (3.5-5.1); Sodium 141 mmol/L (135-145); Total Bilirubin 1.3 mg/dl (0.2-1.3); Total Protein 8.2 g/dl (6.3-8.2); eGFR 35.01
[2023-12-21 14:47] LABS: % Neutrophils 92.1 % (42.2-75.2)
[2023-12-21 15:10] LABS: B.E. 2.6 mmol/L; HCO3 26.2 mmol/L (21-28); O2 Saturation % 99.2 % (94-98); PCO2 36 mmHg (32-35); PO2 95 mmHg (83-108); pH 7.47 (7.35-7.45)
[2023-12-21] MEDS: TYLENOL 650 MG PO (16:07)
[2023-12-21 16:14] LABS: Urine Albumin Trace (Neg - Trace); Urine Bilirubin Negative (Negative); Urine Character Clear (Clear); Urine Color Yellow; Urine Glucose Negative (Negative); Urine Ketone Negative (Negative); Urine Leukocyte Negative (Negative); Urine Nitrite Negative (Negative); Urine Occult Blood Negative (Negative); Urine Specific Gravity 1.015 (<1.030); Urine Urobilinogen Negative (Neg - 1+)
[2023-12-21] MEDS: ZOSYN 50 IV ×2 (16:31→23:20)
[2023-12-21] MEDS: VANCOCIN 540 MG IV (17:30)
[2023-12-21 17:32] LABS: NT-proBNP > 27000 pg/ml
--- NOTE | 2023-12-21 17:36 | HPS.HSE ---
Addendum entered and electronically signed by Siva Kan MD 12/21/23 18:08:
Due to her lymphedema, history of congestive heart failure, low threshold to start Levophed for MAP greater than 65.
Original Note:
Family Physician
-
Family Physician: Miguel Bella
Chief Complaint
-
Confusion
History of Present Illness
78-year-old female with a past medical history of chronic hypoxic respiratory failure on 2 L of oxygen, COPD, CHF, morbid obesity, and chronic lymphedema who was recently discharged from [facility] on 12/18/2023 for confusion presents for
confusion again. Patient is currently awake, alert, oriented x 3. She was found to have a fever of 102.8 degrees, chest x-ray concerning for pneumonia. She reports chronic shortness of breath. Denies coughing. No abdominal pain, no nausea, no
vomiting. No black or bloody stools. No diarrhea.
Medical History
Past Medical History
Past Medical History: Reports Other
Additional Past Medical History:
Chronic hypoxic respiratory failure on home oxygen 1-2 L via NC
Chronic HFrEF (40-45%)
Frequent PVCs and bigeminy
Asthma
Chronic Lymphedema and chronic venous stasis changes
Hypertension
HLD
DM II
MARIAMA
Peripheral Neuropathy
History of DVT
Morbid Obesity
Medication and dietary non-adherence
Past Surgical History: Reports Other
Additional Past Surgical History:
B/l cataract surgery, Several D&Cs, miscarriage, Tonsilectomy, Cancerous mass removed from right leg 20 years ago, Breast mass removed noncancerous.
Social History
Tobacco: Non-smoker
Alcohol: None
Drug: None
Family History
Family History: Other (Father: DM, HTN Mother: Thyroid Disease)
Allergies / Home Medications
Allergies reflects when Allergies were last updated in [facility].
Home Medications with original date entered in [facility]
Allergy/Medication List:
Allergies
Allergy/AdvReac Type Severity Reaction Status Date / Time
albuterol Allergy 'could not Verified 12/15/23 17:20
breath'
ceftriaxone [From Rocephin] Allergy Rash Verified 12/15/23 17:20
08/28/23
admission
cefuroxime [From Ceftin] Allergy facial Verified 12/15/23 17:20
droop,lip
swell/Margie
cefepime,
cefazolin
latex Allergy Rash Verified 12/15/23 17:20
levofloxacin [From Levaquin] Allergy facial Verified 12/15/23 17:20
droop,
rash,
numbness
lisinopril Allergy Shortness Verified 12/15/23 17:20
of Breath
naproxen Allergy Rash Verified 12/15/23 17:20
NSAIDS (Non-Steroidal Allergy Rash Verified 12/15/23 17:20
Anti-Inflamma
poison aroldo extract Allergy Unknown Verified 12/15/23 17:20
poison oak extract Allergy Unknown Verified 12/15/23 17:20
Home Medications Table - record
�Medication �Instructions �Recorded �Confirmed
Ultra Collagen + C 1 tab PO DAILY Skin Issues 12/15/23 12/21/23
acetaminophen 650 mg 1,300 mg PO BIDPRN PRN mild pain 12/15/23 12/21/23
tablet,extended release
ammonium lactate 12 % topical cream 1 applic topical BID B/L lower legs 12/15/23 12/21/23
aspirin 81 mg tablet,delayed 81 mg PO DAILY Blood Clot 12/15/23 12/21/23
release Prevention/Tx
atorvastatin 20 mg tablet 20 mg PO DAILY High Cholesterol 12/15/23 12/21/23
diclofenac sodium 1 applic topical Q6HPRN PRN B/L 12/15/23 12/21/23
knees
fluticasone propionate 115 2 puff inhalation R BID 12/15/23 12/21/23
mcg-salmeterol 21 mcg/actuation Lung/Breathing Issues
HFA inhaler (Advair HFA)
furosemide 80 mg tablet 80 mg PO BID@0800,1600 edema 12/15/23 12/21/23
hydralazine 50 mg tablet 50 mg PO BID Blood Pressure 12/15/23 12/21/23
isosorbide dinitrate 30 mg tablet 30 mg PO DAILY Heart 12/15/23 12/21/23
Disease/Condition
lidocaine 5 % topical patch 2 patch topical DAILY PRN B/L 12/15/23 12/21/23
shoulders
metolazone 2.5 mg tablet 2.5 mg PO DAILY@0730 Fluid 12/15/23 12/21/23
Retention/Swelling
metoprolol succinate 25 mg 25 mg PO DAILY Blood Pressure 12/15/23 12/21/23
tablet,extended release 24 hr
miconazole nitrate 2 % topical 1 applic topical BID under B/L 12/15/23 12/21/23
powder (Miconazorb AF) breasts/groin
potassium chloride 20 mEq 20 meq PO DAILY Electrolyte 12/15/23 12/21/23
tablet,extended release(part/cryst) Repletion
therapeutic multivitamin 1 tab PO DAILY Supplement 12/15/23 12/21/23
Review of Systems
-
A 12 point ROS was completed and negative except as noted: Yes
Physical Exam
Vital Signs
Vital Signs
Temp Pulse Resp BP Pulse Ox
102.8 F H 105 24 100/73 91
12/21/23 16:05 12/21/23 15:30 12/21/23 14:30 12/21/23 15:00 12/21/23 15:30
Physical Exam
General: Other (Appears chronically ill, appears to not feel well, but in no acute distress)
HEENT: NormoCephalic, Anicteric, Moist mucous membranes and Atraumatic
Respiratory: Other (Severely diminished breath sounds at the bases with faint scattered wheezing)
Cardiac: Irregular Rhythm
GI: Soft, Non Tender, Non Distended and Normal Bowel Sounds
Musculoskeletal: No Clubbing and Other (Severe chronic bilateral lower extremity lymphedema noted)
Neuro: AO x 3
Psych: Calm
Laboratory Results
-
12/21/23 14:10
12/21/23 14:10
Laboratory Results
pH 7.47 (7.35-7.45) H 12/21/23 15:03
pCO2 36 mmHg (32-35) H 12/21/23 15:03
pO2 95 mmHg (83-108) 12/21/23 15:03
HCO3 26.2 mmol/L (21-28) 12/21/23 15:03
Lactic Acid 3.6 mmol/L (0.7-2.0) H 12/21/23 14:10
Total Bilirubin 1.3 mg/dl (0.2-1.3) 12/21/23 14:10
AST 28 U/L (14-36) 12/21/23 14:10
ALT 16 U/L (0-35) 12/21/23 14:10
Alkaline Phosphatase 142 U/L (38-126) H 12/21/23 14:10
Impression/Plan
-
Assessment/plan:
#Sepsis secondary to pneumonia
Will cover for hospital-acquired pneumonia since patient was discharged on 12/18/2023
Check influenza, COVID, urine Legionella antigen, urine strep antigen
Continue vancomycin, Zosyn
#Hypotension
#Elevated lactic acid
Blood pressure 83/46 in the ER
Will give 250 cc bolus NS, order midodrine prn
Must be careful with IV fluids since she has a history of CHF and lymphedema
Hold home Lasix, hydralazine, Imdur, metolazone, metoprolol succinate
#Acute toxic metabolic encephalopathy
Due to the above, continue to monitor
# Chronic heart failure mrEF
#Valvular heart disease
Hold Lasix due to hypotension
Trying daily weights, monitor fluid status
#Chronic hypoxic respiratory failure requiring 2 L of oxygen
COPD
Not in acute exacerbation, continue bronchodilators
#History of benign essential hypertension
Hold home Lasix, hydralazine, Imdur, metolazone, metoprolol succinate due to hypotension
#Type 2 diabetes
Apparently on repaglinide PRN at home. Will hold this for now.
Follow glucose and cover with SSI as needed.
#Stage III chronic kidney disease
Creatinine 1.5 at baseline, continue to trend
#Anemia of chronic disease
Monitor hemoglobin
#Chronic lymphedema
#Stage II sacral wound
Consult wound care, continue compression stockings
#Morbid obesity due to excess calories
#Obstructive sleep apnea not on CPAP
Affects all aspects of care
Noncompliant with CPAP therapy for years
#DVT prophylaxis�subcu Lovenox
Full code
Total time spent to see the patient on the floor, examine the patient, review data and lab results, discuss treatment plan with patient, nursing staff around 77 minutes.
[2023-12-21] MEDS: NSS 250 IV (18:25)
[2023-12-21] MEDS: ProAmatine 5 MG PO (19:05)
[2023-12-21 19:34] LABS: COVID-19 Antigen Negative (Negative)
[2023-12-21 20:44] LABS: Lactic Acid 1.4 mmol/L (0.7-2.0)
--- NOTE | 2023-12-21 22:32 | PHA.VAN.IN ---
Assessment
- Assessment
Renal Function: Appears elevated from baseline (10/01/23 BASELINE SCR: 1.2)
Concomitant Antimicrobials: ZOSYN
- Previous Dosing Experience
Previous Regimen: DOSING BY RANDOM LEVELS
Date of Regimen: 10/20/23
Provided Trough of: UNKNOWN
Provided AUC of: UNKNOWN
Patient's SCR is: Decreased compared to previous dosing experience (10/20/23 SCR = 1.7)
Patient's weight is: Decreased compared to previous dosing experience (10/20/23 WT = 114.5 KG)
Plan
- Plan
Initial / Loading Dose: 2GM
Maintenance Regimen: DOSING BY RANDOM LEVELS
Monitoring: RANDOM VANCOMYCIN LEVEL 12/22/23 AM
Pharmacokinetics Vancomycin I
- -
Patient Age: 78
Patient Sex: Female
Vancomycin Day #: 1
Indication: Pulmonary/Respiratory (SEPSIS)
Requesting Provider: VINCE MICHELLE
Pertinent Antimicrobial Allergies:
Allergies
ceftriaxone [From Rocephin] Allergy (Verified 12/15/23 17:20)
Rash 08/28/23 admission
08/28/23 admission. Drug rash - suspect due to ceftriaxone. Now discontinued. Rash is improving on Zyrtec and prednisone. Pt had tolerated ceftriaxone back 2022 admission.
cefuroxime [From Ceftin] Allergy (Verified 12/15/23 17:20)
facial droop,lip swell/Margie cefepime, cefazolin
pt interview: pt stated she experienced facial droop and lip swelling. Found allergy listed on external medical summary report also. Pt stated occured a few years ago. 08/28/23 admission pt developed rash to ceftriaxone. 06/2022 admission tolerated 7
days of ceftriaxone. 02/2023 admission tolerated 6 days cefepime 03/2023 admission tolerated course of cefazolin
levofloxacin [From Levaquin] Allergy (Verified 12/15/23 17:20)
facial droop, rash, numbness
pt interview: pt stated she experienced facial droop, rash and numbness. Found allergy listed on external medical summary report also. Pt stated occured a few years ago.
Height / Weight:
Height 5 ft 3 in
Actual Weight 109.6 kg
Pertinent Past Medical History: RECENT DISCHARGE [12/18/23]
- Vital Signs / Lab Results
Temp Pulse Resp BP Pulse Ox
102.8 F H 71 24 124/67 96
12/21/23 16:05 12/21/23 22:05 12/21/23 22:05 12/21/23 22:05 12/21/23 22:05
Lab Results - Hematology
12/21/23
14:10
WBC 24.1 H
Lab Results - Chemistry
12/21/23
14:10
BUN 42 H
Creatinine 1.5 H
Estimated Creat Clear 37
Albumin 3.8
12/21/23 12/21/23
14:10 19:07
Lactic Acid 3.6 H 1.4
Lab Results - Urine
12/21/23
16:01
Urine Nitrite (Reflex) Negative
Leukocyte Esterase Rfl Negative
Microbiology Results
12/21/23 19:02 Influenza Types A & B (ROBER) - Final
Nasal Swab Negative for Influenza A & B, NAAT
Negative results must be combined with clinical observations
and patient history.
Nucleic Acid Amplification test (NAAT)performed on the
[employer] platform.
[2023-12-21] MEDS: ADVAIR HFA 115/21 MCG INHALER INH (22:41)
[2023-12-21] MEDS: DUONEB INH (22:41)
[2023-12-21] MEDS: LAC HYDRIN, AM LACTIN LOTION 1 APPLIC TOPICAL (23:20)
[2023-12-21] MEDS: DESENEX/MITRAZOL/ZEASORB 1 APPLIC TOPICAL (23:20)
[2023-12-22] VITALS (14 sets, daily range): BP systolic 95–126; BP diastolic 44–88; PULSE 60–63; O2SAT 97–98; BMI 42.6
--- NOTE | 2023-12-22 00:59 | PTCARENOTE ---
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 Pt is AAOx3, drowsy. NSR/ sinus vivek w/ PVCs on the monitor. On 6L NC O2 sat 98%, lungs diminished. Pw in place for incont. Wound care provided (see worklist). Levo gtt not started MAP >65. CHG provided. Pt is laying
comfortable in bed with call disla in reach.
[2023-12-22 04:51] LABS: Hematocrit 29.7 % (37.0-47.0); Hemoglobin 9.7 g/dL (12.0-16.0); Mean Corp Hgb Conc. 32.7 g/dL (33.0-37.0); Mean Corpuscular Hgb 26.6 pg (27.0-31.0); Mean Corpuscular Volume 81.6 fL (81.0-99.0); Mean Platelet Volume 9.4 fL (7.4-10.4); Platelet Count 211 10^3/uL (130-400); Red Blood Cell Count 3.64 10^6/uL (4.20-5.40); Red Cell Dist. Width 17.6 % (11.5-14.5); White Blood Cell Count 13.2 10^3/uL (4.8-10.8)
[2023-12-22] MEDS: ZOSYN 50 IV ×4 (05:05→23:45)
[2023-12-22 05:06] LABS: Blood Urea Nitrogen 43 mg/dl (7-17); Calcium 7.8 mg/dl (8.4-10.2); Carbon Dioxide 26 mmol/L (22-30); Chloride 107 mmol/L (98-107); Estimated Creatinine Clearance 35 ml/min; Glucose 83 mg/dl (70-99); Sodium 139 mmol/L (135-145); eGFR 35.01
[2023-12-22 05:20] LABS: Vancomycin Random 15.2 ug/ml
--- NOTE | 2023-12-22 06:14 | W.PN.HOSP.TC ---
Today's Communication/Plan
-
wean O2 supplementation as tolerated
cont abx
follow cultures
midodrine prn
resume home Lasix metoprolol with holding parameters
PT/OT
Assessment / Plan
Assessment / Plan
Physical Exam
General: No acute distress. Appears comfortable at this time
HEENT: NormoCephalic, Anicteric, Moist mucous membranes and Atraumatic
Respiratory: Clear to Auscultation b/l
Cardiac: S1 S2 sinus vivek
GI: Soft, Non Tender, Non Distended and Normal Bowel Sounds
Musculoskeletal: No Clubbing, Severe chronic bilateral lower extremity lymphedema with associate hyperkeratosis
Neuro: AO x 3
Psych: Calm
78F COPD2L CHF morbid obesity chronic lymphedema CKD III MARIAMA noncompliant w CPAP multiple admissions last 6 months here for sepsis suspected hospital acquired PNA.
#Sepsis secondary to pneumonia
Covered for hospital-acquired pneumonia, patient last discharged on 12/18/2023
influenza, COVID, urine Legionella antigen, urine strep antigen (all Neg)
MRSA screen pos
Continue vancomycin, Zosyn
#Hypotension resolved
#Elevated lactic acid resolved
Blood pressure 83/46 in the ER since improved w/ small IVF bolus and hold home diuretics
cautious use IV fluids d/t hx CHF and lymphedema
Initially held home Lasix, hydralazine, Imdur, metolazone, metoprolol succinate
Lasix Metoprolol resumed with holding parameters
#Acute toxic metabolic encephalopathy
Appears resolved at this time, AOx3
# Chronic heart failure mrEF
#Valvular heart disease
Lasix resumed as above with holding parameters
daily weights, I/O
#Acute on Chronic hypoxic respiratory failure baseline 2 L of oxygen
COPD
Not in acute exacerbation, continue bronchodilators
wean O2 as tolerated to baseline 2L
#History of benign essential hypertension
Hold home hydralazine, Imdur, metolazone, due to hypotension
home Lasix metoprolol resumed with holding parameters
#Type 2 diabetes
Apparently on repaglinide PRN at home. Will hold this for now.
Follow glucose and cover with SSI as needed.
#Stage III chronic kidney disease
Creatinine 1.5 at baseline, continue to trend
#Anemia of chronic disease
Elevated Hgb on admission likely hemoconcentrated
subsequent values more consistent with patient's baseline/prior values
monitor H&H
#Chronic lymphedema
#Stage II sacral wound
continue compression stockings
wound care consult appreciated
#Morbid obesity due to excess calories
#Obstructive sleep apnea not on CPAP
Affects all aspects of care
Noncompliant with CPAP therapy for years
PT/OT appreciated home health
#DVT prophylaxis�subcu Lovenox
Full code
Total time spent to see the patient on the floor, examine the patient, review data and lab results, discuss treatment plan with patient, nursing staff around 55 minutes.
Anticipated Discharge: 24 - 48 hours
Subjective/Interval History
-
Date of Service: December 22, 2023
Seen and examined at bedside in no acute distress sitting up comfortably in bed. AOx3, patient reports feeling significant improvement. Stable respiratory status on 4L (baseline 2L).
Objective Data
-
Labs:
Laboratory Results
12/22/23
04:37
WBC 13.2 H
Hgb 9.7 L
Hct 29.7 L
Plt Count 211 D
Sodium 139
Potassium 4.0
Chloride 107
Carbon Dioxide 26
BUN 43 H
Creatinine 1.5 H
Glucose 83
Calcium 7.8 L
Vital Signs:
Vital Signs
Temp Pulse Resp BP Pulse Ox
97.7 F 48 13 97/52 98
12/22/23 03:00 12/22/23 06:00 12/22/23 06:00 12/22/23 06:00 12/22/23 04:00
I&O
12/20/23 12/21/23 12/22/23
06:59 06:59 06:59
Intake Total 150 / 150
Output Total 200 / 200
Balance -50 / -50
[2023-12-22] MEDS: ADVAIR HFA 115/21 MCG INHALER 2 PUFF INH ×2 (07:11→20:01)
[2023-12-22] MEDS: DUONEB 3 ML INH ×4 (07:11→20:01)
--- NOTE | 2023-12-22 08:00 | PTCARENOTE ---
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 Assessment performed, see flowsheets. Pt AAOx4. SB 40s-50s with PVCs on heart monitor. On 6L NC. B/l crackles in lower lobes. Purewick in place. R hand PIVs x2 and R forearm PIV flushed and patent. Will continue to
monitor.
[2023-12-22] MEDS: LIPITOR 20 MG PO (09:33)
[2023-12-22] MEDS: ASPIR LOW (ENTERIC COATED) 81 MG PO (09:33)
[2023-12-22] MEDS: DESENEX/MITRAZOL/ZEASORB 1 APPLIC TOPICAL ×2 (09:33→19:47)
[2023-12-22] MEDS: LAC HYDRIN, AM LACTIN LOTION 1 APPLIC TOPICAL ×2 (09:34→19:47)
[2023-12-22] MEDS: LIDOCAINE 4% PATCH 2 PATCH TOPICAL (09:35)
--- NOTE | 2023-12-22 09:35 | VNURNOTE ---
Patient is current with [facility] since 10/27 w/ SN/PT, with resumption of care 12/18, will monitor progress and plan at discharge.
--- NOTE | 2023-12-22 10:06 | PHA.VAN.FU ---
Vancomycin Assessment / Plan
- Assessment
Renal Function: Stable
WBC's are: Trending Down
Concomitant Antimicrobials: piperacillin/tazobactam
- Assessment - Therapeutic Drug Monitoring
Random Level: 15.2 - drawn ~11H after 2g loading dose
- Dosing Plan
Dosing by Level: Re-dose today (1000mg)
- Monitoring Plan
Random Level: 12/22 0600
- Follow Up
Pharmacy will continue to follow.
Vancomycin Follow UP
- -
Patient Age: 78
Patient Sex: Female
Vancomycin Day #: 2
Indication: Pulmonary/Respiratory
Requesting Provider: Dr. Kan
Pertinent Antimicrobial Allergies:
ceftriaxone [From Rocephin] - Rash 08/28/23 admission
08/28/23 admission. Drug rash - suspect due to ceftriaxone. Now discontinued. Rash is improving on Zyrtec and prednisone. Pt had tolerated ceftriaxone back 2022 admission.
cefuroxime - facial droop,lip swell/Margie cefepime, cefazolin
pt interview: pt stated she experienced facial droop and lip swelling. Found allergy listed on external medical summary report also. Pt stated occurred a few years ago. 08/28/23 admission pt developed rash to ceftriaxone. 06/2022 admission tolerated 7
days of ceftriaxone. 02/2023 admission tolerated 6 days cefepime 03/2023 admission tolerated course of cefazolin
levofloxacin - facial droop, rash, numbness
pt interview: pt stated she experienced facial droop, rash and numbness. Found allergy listed on external medical summary report also. Pt stated occurred a few years ago.
Height / Weight:
Height 5 ft 3 in
Actual Weight 109.1 kg
Pertinent Past Medical History: BMI ~43, DM 2, CKD
- Vital Signs / Lab Results
Temp Pulse Resp BP Pulse Ox
96.7 F L 50 16 97/52 97
12/22/23 07:20 12/22/23 07:12 12/22/23 07:12 12/22/23 06:00 12/22/23 07:12
Lab Results - Hematology
12/21/23 12/22/23
14:10 04:37
WBC 24.1 H 13.2 H
Lab Results - Chemistry
12/21/23 12/22/23
14:10 04:37
BUN 42 H 43 H
Creatinine 1.5 H 1.5 H
Estimated Creat Clear 37 35
Albumin 3.8
12/21/23 12/21/23
14:10 19:07
Lactic Acid 3.6 H 1.4
Lab Results - Urine
12/21/23
16:01
Urine Nitrite (Reflex) Negative
Leukocyte Esterase Rfl Negative
Microbiology Results
12/22/23 05:28 Legionella Urinary Antigen - Final
Urine Negative for Legionella pneumophila Serogroup 1 antigen.
A negative result does not rule out the possiblity of
Legionella infection due to other serogroups or species of
Legionella. Clinical correlation is recommended.
Streptococcus pneumoniae Antigen (M - Final
Negative for Streptococcus pneumoniae antigen.
A negative result does not exclude infection with
Streptococcus pneumoniae. Clinical correlation is
recommended.
12/21/23 19:02 Influenza Types A & B (ROBER) - Final
Nasal Swab Negative for Influenza A & B, NAAT
Negative results must be combined with clinical observations
and patient history.
Nucleic Acid Amplification test (NAAT)performed on the
[employer] platform.
Therapeutic Drug Monitoring
Random Vancomycin 15.2 ug/ml 12/22/23 04:37
[2023-12-22] MEDS: VANCOCIN 200 IV (13:48)
--- NOTE | 2023-12-22 15:59 | CM ---
CM reviewed chart and met with pt bedside
Pt with frequent readmissions
Pt resides at home with her sons David and Ed
She has a 1st floor set up and 1STE
She is unable to negotiate steps to 2nd floor
She has a hospital bed and O2 2L baseline both through [employer]
She ambulates short distances with a WW- requires assistance for personal care
Current with [facility]
PT/OT following
Discharge Disposition- home [facility]
--- NOTE | 2023-12-22 16:07 | WOUNDNOTE ---
L MEDIAL LOWER LEG
--- NOTE | 2023-12-22 16:07 | WOUNDNOTE ---
R LATERAL LOWER LEG
--- NOTE | 2023-12-22 16:10 | WOUNDNOTE ---
MONICA RN note: Patient admitted with pneumonia. Patient is current with [facility] and follows [facility].
See H&P for complete history. From [facility]
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 PI on B/L buttocks and ischium.
Wound Location and type/assessment: Patient last seen 12/16/23 for same venous stasis ulcers LE's, and PI on buttocks/ischium/posterior thighs. legs with lymphedema, +Hemosiderosis,+Palpable pedal pulses. 10/20/23 RLE venous Doppler negative for DVT.
Patient stated she wears shilo wraps for compression. Legs with indentation from Pedro wrap around ankles, skin very dry. Heels are intact. Bilateral buttocks and Ischium with deep dermal stage 2 vs stage 3 pressure injuries. Abdominal/groin/breast
skin folds with yeasty red skin, fungal powder in use. PCT Roxane assisted.
Appetite: good.
Pressure redistribution devices in place:Centrella air. Air cushion on pillow under calves.
Plan: Local wound care with silicone foams and honey gel/adaptic to legs. Mineral oil for dry skin on legs. Applied knee high Shilo wraps. Repositioned onto R semi side lying position. Bariatric air cushion when sitting. Will confirm orders with
hospitalist. Updated nurse Leon.Care plan to be updated and will follow as needed.
Recommend follow up at wound care center upon discharge.
[2023-12-22 16:34] LABS: Hematocrit 31.9 % (37.0-47.0); Hemoglobin 10.4 g/dL (12.0-16.0)
[2023-12-22] MEDS: LASIX 80 MG PO (17:14)
[2023-12-22] MEDS: LOVENOX 40 MG SC (17:14)
[2023-12-22] MEDS: TYLENOL 650 MG PO (19:46)
[2023-12-23] VITALS (11 sets, daily range): BP systolic 102–124; BP diastolic 54–67; BMI 42.8
[2023-12-23] MEDS: ZOSYN 50 IV ×2 (05:24→12:20)
[2023-12-23 05:44] LABS: Hematocrit 30.6 % (37.0-47.0); Hemoglobin 9.7 g/dL (12.0-16.0); Mean Corp Hgb Conc. 31.7 g/dL (33.0-37.0); Mean Corpuscular Hgb 25.9 pg (27.0-31.0); Mean Corpuscular Volume 81.8 fL (81.0-99.0); Mean Platelet Volume 9.3 fL (7.4-10.4); Platelet Count 213 10^3/uL (130-400); Red Blood Cell Count 3.74 10^6/uL (4.20-5.40); Red Cell Dist. Width 17.6 % (11.5-14.5); White Blood Cell Count 8.3 10^3/uL (4.8-10.8)
[2023-12-23 06:04] LABS: Vancomycin Random 18.6 ug/ml
[2023-12-23 06:29] LABS: ALT (SGPT) 15 U/L (0-35); AST (SGOT) 26 U/L (14-36); Albumin 2.5 g/dl (3.5-5.0); Alkaline Phosphatase 95 U/L (38-126); Blood Urea Nitrogen 46 mg/dl (7-17); Calcium 7.9 mg/dl (8.4-10.2); Carbon Dioxide 25 mmol/L (22-30); Chloride 105 mmol/L (98-107); Direct Bilirubin 0.3 mg/dl (0.0-0.4); Estimated Creatinine Clearance 38 ml/min; Glucose 90 mg/dl (70-99); Magnesium 2.2 mg/dl (1.6-2.3); Phosphorus 4.2 mg/dl (2.5-4.5); Sodium 137 mmol/L (135-145); Total Bilirubin 0.6 mg/dl (0.2-1.3); Total Protein 5.9 g/dl (6.3-8.2); eGFR 38.03
--- NOTE | 2023-12-23 07:27 | W.PN.HOSP.TC ---
Today's Communication/Plan
-
downgrade to tele
abx as per ID
PT/OT
wean O2 supplementation as tolerated
Podiatry eval
Assessment / Plan
Assessment / Plan
Physical Exam
General: No acute distress. Appears comfortable at this time
HEENT: NormoCephalic, Anicteric, Moist mucous membranes and Atraumatic
Respiratory: Clear to Auscultation b/l
Cardiac: S1 S2 sinus vivek
GI: Soft, Non Tender, Non Distended and Normal Bowel Sounds
Musculoskeletal: No Clubbing, Severe chronic bilateral lower extremity lymphedema with associate hyperkeratosis
Neuro: AO x 3
Psych: Calm
78F COPD2L CHF morbid obesity chronic lymphedema CKD III MARIAMA noncompliant w CPAP multiple admissions last 6 months here for sepsis suspected hospital acquired PNA.
#Sepsis secondary to pneumonia
Covered for hospital-acquired pneumonia, patient last discharged on 12/18/2023
influenza, COVID, urine Legionella antigen, urine strep antigen (all Neg)
MRSA screen pos
ID eval appreciated empiric vanc zosyn to transition to doxycycline augmentin
#Hypotension resolved
#Elevated lactic acid resolved
Blood pressure 83/46 in the ER since improved w/ small IVF bolus and hold home diuretics
cautious use IV fluids d/t hx CHF and lymphedema
Initially held home Lasix, hydralazine, Imdur, metolazone, metoprolol succinate
Lasix Metoprolol Imdur resumed with holding parameters
#Acute toxic metabolic encephalopathy
Appears resolved at this time, AOx3
# Chronic heart failure mrEF
#Valvular heart disease
Lasix resumed as above with holding parameters
daily weights, I/O
#Acute on Chronic hypoxic respiratory failure baseline 2 L of oxygen
COPD
Not in acute exacerbation, continue bronchodilators
wean O2 as tolerated to baseline 2L
#History of benign essential hypertension
Hold home hydralazine, Imdur, metolazone, due to hypotension
home Lasix metoprolol Imdur resumed with holding parameters
#hx Type 2 diabetes
Glucose well controlled at this time
recent A1c 5.7 12/16/23
A1c consistently prediabetic for the last year
no need for routine FS
#Stage III chronic kidney disease
Stable Cr baseline 1.4-1.5
#Anemia of chronic disease
Elevated Hgb on admission likely hemoconcentrated
subsequent values more consistent with patient's baseline/prior values
H&H stable at this time
#Chronic lymphedema
#Stage II sacral wound
continue compression stockings
wound care consult appreciated
#Morbid obesity due to excess calories
#Obstructive sleep apnea not on CPAP
Affects all aspects of care
Noncompliant with CPAP therapy for years
Patient needs bariatric commode due to morbid obesity BMI>40 with associate significant ambulatory dysfunction
#Overgrown Toenails
podiatry eval requested
PT/OT appreciated home health
#DVT prophylaxis�subcu Lovenox
Full code
Medically stable for downgrade to Tele
Discussed with patient bedside and daughter David over phone
Total time spent to see the patient on the floor, examine the patient, review data and lab results, discuss treatment plan with patient, nursing staff around 55 minutes.
Anticipated Discharge: 24 - 48 hours
Subjective/Interval History
-
Date of Service: December 23, 2023
Seen and examined at bedside in no acute distress sitting up comfortably in bed. Overall appears improved, oxygenation status close to baseline (currently 3L, baseline 2L).
Objective Data
-
Labs:
Laboratory Results
12/23/23
05:31
WBC 8.3
Hgb 9.7 L
Hct 30.6 L
Plt Count 213
Sodium 137
Potassium 4.0
Chloride 105
Carbon Dioxide 25
BUN 46 H
Creatinine 1.4 H
Glucose 90
Calcium 7.9 L
Total Bilirubin 0.6
AST 26
ALT 15
Alkaline Phosphatase 95
Vital Signs:
Vital Signs
Temp Pulse Resp BP Pulse Ox
97.8 F 61 17 111/61 93
12/23/23 03:51 12/23/23 06:00 12/23/23 06:00 12/23/23 06:00 12/23/23 06:00
I&O
12/22/23 12/23/23 12/24/23
06:59 06:59 06:59
Intake Total 150 / 150
Output Total 200 / 200 200 / 200
Balance -50 / -50 -200 / -200
[2023-12-23] MEDS: HYDROPHOR 1 APPLIC TOPICAL (07:39)
[2023-12-23] MEDS: LAC HYDRIN, AM LACTIN LOTION 1 APPLIC TOPICAL ×2 (07:39→22:05)
[2023-12-23] MEDS: LIDOCAINE 4% PATCH 2 PATCH TOPICAL (07:39)
[2023-12-23] MEDS: DESENEX/MITRAZOL/ZEASORB 1 APPLIC TOPICAL ×2 (07:39→22:04)
[2023-12-23] MEDS: KCL 20 MEQ PO (07:40)
[2023-12-23] MEDS: THERAGRAN 1 TABLET PO (07:40)
[2023-12-23] MEDS: LASIX 80 MG PO ×2 (07:40→17:06)
[2023-12-23] MEDS: ASPIR LOW (ENTERIC COATED) 81 MG PO (07:40)
[2023-12-23] MEDS: TOPROL XL 25 MG PO (07:41)
[2023-12-23] MEDS: LIPITOR 20 MG PO (07:41)
[2023-12-23] MEDS: SORBITRATE 30 MG PO (07:41)
[2023-12-23] MEDS: DUONEB 3 ML INH ×4 (07:54→19:52)
[2023-12-23] MEDS: ADVAIR HFA 115/21 MCG INHALER 2 PUFF INH ×2 (07:54→19:51)
--- NOTE | 2023-12-23 09:14 | PTCARENOTE ---
Pt refusing compression therapy at this time.
--- NOTE | 2023-12-23 09:17 | PHA.VAN.FU ---
Vancomycin Assessment / Plan
- Assessment
Renal Function: Stable
WBC's are: WNL
In the past 24 hrs, patient has been: Afebrile
Concomitant Antimicrobials: piperacillin/tazobactam
- Assessment - Therapeutic Drug Monitoring
Random Level: 18.6 - drawn ~16H after previous dose of 1000mg
- Dosing Plan
Dosing by Level: Hold off on dosing today
- Monitoring Plan
Random Level: 12/23 0600 to assess half-life
- Follow Up
Pharmacy will continue to follow.
Vancomycin Follow UP
- -
Patient Age: 78
Patient Sex: Female
Vancomycin Day #: 3
Indication: Pulmonary/Respiratory
Requesting Provider: Dr. Kan
Pertinent Antimicrobial Allergies:
ceftriaxone [From Rocephin] - Rash 08/28/23 admission
08/28/23 admission. Drug rash - suspect due to ceftriaxone. Now discontinued. Rash is improving on Zyrtec and prednisone. Pt had tolerated ceftriaxone back 2022 admission.
cefuroxime - facial droop,lip swell/Margie cefepime, cefazolin
pt interview: pt stated she experienced facial droop and lip swelling. Found allergy listed on external medical summary report also. Pt stated occurred a few years ago. 08/28/23 admission pt developed rash to ceftriaxone. 06/2022 admission tolerated 7
days of ceftriaxone. 02/2023 admission tolerated 6 days cefepime 03/2023 admission tolerated course of cefazolin
levofloxacin - facial droop, rash, numbness
pt interview: pt stated she experienced facial droop, rash and numbness. Found allergy listed on external medical summary report also. Pt stated occurred a few years ago.
Height / Weight:
Height 5 ft 3 in
Actual Weight 109.6 kg
Pertinent Past Medical History: BMI ~43, DM 2, CKD
- Vital Signs / Lab Results
Temp Pulse Resp BP Pulse Ox
97.3 F 68 18 121/57 96
12/23/23 07:56 06/26/24 08:01 12/23/23 08:01 12/23/23 07:41 12/23/23 08:01
Lab Results - Hematology
12/21/23 12/22/23 12/23/23
14:10 04:37 05:31
WBC 24.1 H 13.2 H 8.3
Lab Results - Chemistry
12/21/23 12/22/23 12/23/23
14:10 04:37 05:31
BUN 42 H 43 H 46 H
Creatinine 1.5 H 1.5 H 1.4 H
Estimated Creat Clear 37 35 38
Albumin 3.8 2.5 L
12/21/23 12/21/23
14:10 19:07
Lactic Acid 3.6 H 1.4
Microbiology Results
12/21/23 14:10 Blood Culture - Preliminary
Blood/Venous No Growth in 24 hours- Final report to follow
12/21/23 14:10 Blood Culture - Preliminary
Blood/Venous No Growth in 24 hours- Final report to follow
12/22/23 09:43 Nasal Screen MRSA (PCR) - Final
Nose Staph aureus MRSA
12/22/23 05:28 Legionella Urinary Antigen - Final
Urine Negative for Legionella pneumophila Serogroup 1 antigen.
A negative result does not rule out the possiblity of
Legionella infection due to other serogroups or species of
Legionella. Clinical correlation is recommended.
Streptococcus pneumoniae Antigen (M - Final
Negative for Streptococcus pneumoniae antigen.
A negative result does not exclude infection with
Streptococcus pneumoniae. Clinical correlation is
recommended.
12/21/23 19:02 Influenza Types A & B (ROBER) - Final
Nasal Swab Negative for Influenza A & B, NAAT
Negative results must be combined with clinical observations
and patient history.
Nucleic Acid Amplification test (NAAT)performed on the
[employer] platform.
Therapeutic Drug Monitoring
Random Vancomycin 18.6 ug/ml 12/23/23 05:31
--- NOTE | 2023-12-23 12:31 | CON.ID ---
Consultation
-
Date/Time Consultation Requested: December 23, 2023 0933
Date/Time Consultation Performed: December 23, 2023 1230
Requesting Provider: Dr. Delgado Reed
Performing Provider: Dr. Lesly Monsivais
Reason for Consultation: HCAP, multiple abx allergies
Chief Complaint / Past History
Chief Complaint
Confusion
History of Present Illness
77-year-old female with history of diabetes mellitus, asthma, heart failure with reduced EF, chronic hypoxic respiratory failure on 2 L of home O2 , lymphedema who who was recently hospitalized from December 14 to December 17 with confusion with mild CO2
retention. She reports she was doing well at home until her daughter noted that she was confused. She was also weak and unable to get up from the chair to the wheelchair. She was sent to the ER December 20. Patient noted to be febrile 102.8. White
count . Chest x-ray showed subtle hazy increased opacity left upper lung. She was started on vancomycin and Zosyn. Fever resolved. Leukocytosis now normal. Patient reports no cough. She has chronic shortness of breath stable. No nausea
vomiting diarrhea. No dysuria. She is feeling better overall.
Past History
Additional Past Medical History:
Hypertension
Diabetes mellitus, type II
Asthma
Chronic hypoxemic resp failure on home O2
ckd3b
Heart failure, EF 45-50%
Aortic stenosis
Right lower extremity DVT
Lymphedema
Venous insufficiency
Sleep apnea on nocturnal oxygen
Class III obesity BMI 43
Benign breast mass resection
Allergy History:
albuterol Allergy (Verified 12/15/23 17:20)
'could not breath'
ceftriaxone [From Rocephin] Allergy (Verified 12/15/23 17:20)
Rash 08/28/23 admission
cefuroxime [From Ceftin] Allergy (Verified 12/15/23 17:20)
facial droop,lip swell/Margie cefepime, cefazolin
latex Allergy (Verified 12/15/23 17:20)
Rash
levofloxacin [From Levaquin] Allergy (Verified 12/15/23 17:20)
facial droop, rash, numbness
lisinopril Allergy (Verified 12/15/23 17:20)
Shortness of Breath
naproxen Allergy (Verified 12/15/23 17:20)
Rash
NSAIDS (Non-Steroidal Anti-Inflamma Allergy (Verified 12/15/23 17:20)
Rash
poison aroldo extract Allergy (Verified 12/15/23 17:20)
Unknown
poison oak extract Allergy (Verified 12/15/23 17:20)
Unknown
Medications Reviewed: Yes
Current Antibiotics:
Zosyn D3
Vancomycin D3
Social History
Tobacco: Non-Smoker
Alcohol: None
Drug: None
Living: Other (pets: 1 dog, 3 cats)
Employment: Retired
Family History
Family History: Not Pertinent
Review of Systems
Review of Systems
General: Negative Fever, Chills or Change in Appetite
HEENT: Negative Sinus Problems, Headache or Pharyngitis
Cardiovascular: Negative Chest Pain
Gasteroenterology: Other (no diarrhea); Negative Nausea or Vomiting
Genital / Urological: Negative Dysuria or Flank Pain
Neurological: Negative Dizziness
All systems: All other systems were reviewed and were negative
Vital Signs
Temp Pulse Resp BP Pulse Ox
97.3 F 68 15 102/58 95
12/23/23 07:56 12/23/23 11:08 12/23/23 11:08 12/23/23 10:00 12/23/23 11:29
Selected Entries
12/21/23
16:05
Temp 102.8 F H
Physical Exam
Physical Exam
Constitutional: No Acute Distress and Comfortable
Eyes: No Conjunctival Hemorrhage and Sclera Anicteric
Cardiovascular: Regular Rate and S1/S2
Pulmonary: Clear
Gastrointestinal: Soft, Non Tender, Non Distended and Normal Bowel Sounds
Extremities: Edema (BLE lymphedema)
Wound: Other (Review wound photos - no signs of infection)
Neurological: AO x 3
Lab / Diagnostic Study Results
12/23/23 05:31
12/23/23 05:31
Abs Immat Gran (auto) 0.3 10^3/uL (0-0.05) H 12/21/23 14:10
Absolute Neuts (auto) 22.2 10^3/uL (1.4-6.5) H 12/21/23 14:10
Absolute Lymphs (auto) 0.3 10^3/uL (1.2-3.4) L 12/21/23 14:10
Absolute Monos (auto) 1.1 10^3/uL (0.1-0.6) H 12/21/23 14:10
Absolute Basos (auto) 0.1 10^3/uL (0-0.2) 12/21/23 14:10
Immature Gran % 1.4 % (0-0.5) H 12/21/23 14:10
Neutrophils % 92.1 % (42.2-75.2) H 12/21/23 14:10
Lymphocytes % 1.4 % (20.5-51.1) L 12/21/23 14:10
Monocytes % 4.5 % (1.7-9.3) 12/21/23 14:10
Eosinophils % 0.1 % (0-6) 12/21/23 14:10
Basophils % 0.5 % (0-2) 12/21/23 14:10
Lactic Acid 1.4 mmol/L (0.7-2.0) 12/21/23 19:07
Microbiology Results
Micro:
12/21/23 14:10 Blood Culture - Preliminary
Blood/Venous No Growth in 24 hours- Final report to follow
12/21/23 14:10 Blood Culture - Preliminary
Blood/Venous No Growth in 24 hours- Final report to follow
12/22/23 09:43 Nasal Screen MRSA (PCR) - Final
Nose Staph aureus MRSA
12/22/23 05:28 Legionella Urinary Antigen - Final
Urine Negative for Legionella pneumophila Serogroup 1 antigen.
A negative result does not rule out the possiblity of
Legionella infection due to other serogroups or species of
Legionella. Clinical correlation is recommended.
Streptococcus pneumoniae Antigen (M - Final
Negative for Streptococcus pneumoniae antigen.
A negative result does not exclude infection with
Streptococcus pneumoniae. Clinical correlation is
recommended.
12/21/23 19:02 Influenza Types A & B (ROBER) - Final
Nasal Swab Negative for Influenza A & B, NAAT
Negative results must be combined with clinical observations
and patient history.
Nucleic Acid Amplification test (NAAT)performed on the
[employer] platform.
12/21/23 CXR: Subtle focus of hazy increased opacity projecting over the medial aspect of the left upper lung, new from recent chest radiograph. This is suspicious for a small focal area of pneumonia.
Assessment / Plan
# Fever, Leukocytosis resolved.
# Possible PNA
- CXR 'subtle focus of increased opacity' MIMA
- pt wo cough
- DC cris Dumont
-Transtion to doxycyline 100mg po bid and Augmentin 875mg po bid through 12/27/23.
--- NOTE | 2023-12-23 15:19 | CM ---
Addendum entered by Cara Cramer RN 12/23/23 16:03:
Seen by wound care nurse- noting wound care.
Informed daughter David bariatric commode ordered and can deliver tomorrow- provided [facility] contact info to coordinate. Daughter thinks her brother and she can transport patient home in their vehicle and use w/c from car to house.
Original Note:
Patient with Dx sepsis secondary to pneumonia, Acute on Chronic hypoxic respiratory failure. O2 3L.
PT & OT 12/21; assist of 2, not currently ambulatory, recommend HH.
Spoke with patient's daughter David; discussed patient's current mobility and daughter confirms she wants to take patient home and that there are usually 2 people available to assist. [facility] is in the process of ordering a power w/c for her, she
cannot self propel due to 2 torn rotator cuffs and her arthritis. Her daughter is her caregiver and her brother Ed will assist as well, no private caregiver in place. She has a raised toilet seat and RW. She is requesting a bariatric commode. As
the hospital bed and O2 are provided by [facility], agree to contact them with this request, and daughter wants to know if any out of pocket cost.
Spoke with [facility]; she confirms that they have a bariatric commode in stock that can be delivered tomorow, and will work on getting it covered under insurance, if MD provides documentation. Referral sent.
Patient may need transport arranged at d/c.
Plan home with bariatric commode and resumption [facility], with family.
--- NOTE | 2023-12-23 16:03 | PTCARENOTE ---
Pt downgraded to tele. Report to receiving RN. Belongings collected from room. Transferred to new room via stretcher.
[2023-12-23] MEDS: LOVENOX 40 MG SC (17:06)
[2023-12-23] MEDS: AUGMENTIN 875 MG/125 MG 1 TABLET PO (22:04)
[2023-12-23] MEDS: VIBRAMYCIN 100 MG PO (22:04)
[2023-12-24 02:44] VITALS: BP 113/62
[2023-12-24 05:48] LABS: Hemoglobin 9.9 g/dL (12.0-16.0); Mean Corp Hgb Conc. 31.9 g/dL (33.0-37.0); Mean Corpuscular Hgb 25.8 pg (27.0-31.0); Mean Corpuscular Volume 80.9 fL (81.0-99.0); Mean Platelet Volume 9.1 fL (7.4-10.4); Platelet Count 226 10^3/uL (130-400); Red Blood Cell Count 3.83 10^6/uL (4.20-5.40); Red Cell Dist. Width 17.6 % (11.5-14.5)
[2023-12-24 06:51] LABS: Blood Urea Nitrogen 42 mg/dl (7-17); Calcium 7.7 mg/dl (8.4-10.2); Carbon Dioxide 29 mmol/L (22-30); Chloride 104 mmol/L (98-107); Estimated Creatinine Clearance 38 ml/min; Glucose 84 mg/dl (70-99); Magnesium 2.1 mg/dl (1.6-2.3); Phosphorus 4.1 mg/dl (2.5-4.5); Potassium 4.1 mmol/L (3.5-5.1); Sodium 139 mmol/L (135-145); eGFR 38.03
--- NOTE | 2023-12-24 07:19 | W.PN.HOSP.TC ---
Today's Communication/Plan
-
discharge
Assessment / Plan
Assessment / Plan
Physical Exam
General: No acute distress. Appears comfortable at this time
HEENT: NormoCephalic, Anicteric, Moist mucous membranes and Atraumatic
Respiratory: Clear to Auscultation b/l
Cardiac: S1 S2 sinus vivek
GI: Soft, Non Tender, Non Distended and Normal Bowel Sounds
Musculoskeletal: No Clubbing, Severe chronic bilateral lower extremity lymphedema with associate hyperkeratosis
Neuro: AO x 3
Psych: Calm
78F COPD2L CHF morbid obesity chronic lymphedema CKD III MARIAMA noncompliant w CPAP multiple admissions last 6 months here for sepsis suspected hospital acquired PNA.
#Sepsis secondary to pneumonia
Covered for hospital-acquired pneumonia, patient last discharged on 12/18/2023
influenza, COVID, urine Legionella antigen, urine strep antigen (all Neg)
MRSA screen pos
ID eval appreciated empiric vanc zosyn transitioned to Doxycycline Augmentin to continue through 12/27/23
#Hypotension resolved
#Elevated lactic acid resolved
Blood pressure 83/46 in the ER since improved w/ small IVF bolus and hold home diuretics
cautious use IV fluids d/t hx CHF and lymphedema
Initially held home Lasix, hydralazine, Imdur, metolazone, metoprolol succinate
Lasix Metoprolol Imdur resumed with holding parameters
ok to resume home metolazone on discharge, would continue to hold home hydralazine at this time
#Acute toxic metabolic encephalopathy
Appears resolved at this time, AOx3
# Chronic heart failure mrEF
#Valvular heart disease
Lasix resumed as above with holding parameters
daily weights, I/O
#Acute on Chronic hypoxic respiratory failure baseline 2 L of oxygen
COPD
Not in acute exacerbation, continue bronchodilators
O2 weaned to baseline 2L
#History of benign essential hypertension
Held home hydralazine due to hypotension
home Lasix metoprolol Imdur resumed with holding parameters
ok to resume home metolazone on discharge, cont hold hydralazine as above
#hx Type 2 diabetes
Glucose well controlled at this time
recent A1c 5.7 12/16/23
A1c consistently prediabetic for the last year
no need for routine FS
#Stage III chronic kidney disease
Stable Cr baseline 1.4-1.5
#Anemia of chronic disease
Elevated Hgb on admission likely hemoconcentrated
subsequent values more consistent with patient's baseline/prior values
H&H stable at this time
#Chronic lymphedema
#Stage II sacral wound
continue compression stockings
wound care consult appreciated
#Morbid obesity due to excess calories
#Obstructive sleep apnea not on CPAP
Affects all aspects of care
Noncompliant with CPAP therapy for years
Patient needs bariatric commode due to morbid obesity BMI>40 with associate significant ambulatory dysfunction
#Overgrown Toenails
Outpatient podiatry follow up recommended
#B/L Knee Pain Arthritis
XR appreciated no acute fracture or dislocation, b/l severe tricompartment degenerative changes
Outpt follow up with her orthopedic recommended
PT/OT appreciated home health
#DVT prophylaxis�subcu Lovenox
Full code
Medically stable for discharge home with home services and outpatient follow up recommendations.
Discussed with patient at bedside. Daughter David called and message left with update along with call back number.
Total Time Preparing Discharge ___50____ minutes including examination of the patient, summary of the hospital stay, instructions for continuing care to all relevant caregivers; and preparation of discharge records, prescriptions, and referral
forms if necessary.
Anticipated Discharge: Today
Subjective/Interval History
-
Date of Service: December 24, 2023
Seen and examined at bedside in no acute distress sitting up comfortably in bed. Back to baseline oxygen requirement 2L. Reports overall feeling well. Eager to go home.
Objective Data
-
Labs:
Laboratory Results
12/24/23
05:39
WBC 7.0
Hgb 9.9 L
Hct 31.0 L
Plt Count 226
Sodium 139
Potassium 4.1
Chloride 104
Carbon Dioxide 29
BUN 42 H
Creatinine 1.4 H
Glucose 84
Calcium 7.7 L
Vital Signs:
Vital Signs
Temp Pulse Resp BP Pulse Ox
97.7 F 65 18 113/62 92
12/24/23 02:44 12/24/23 02:44 12/24/23 02:44 12/24/23 02:44 12/24/23 02:44
I&O
12/23/23 12/24/23 12/25/23
06:59 06:59 06:59
Output Total 200 / 200 650 / 650
Balance -200 / -200 -650 / -650
[2023-12-24 07:30] VITALS: BP 129/71
[2023-12-24] MEDS: ADVAIR HFA 115/21 MCG INHALER 2 PUFF INH (07:52)
[2023-12-24] MEDS: DUONEB 3 ML INH ×3 (07:52→14:54)
--- NOTE | 2023-12-24 09:06 | W.PN.ID1 ---
Date of Service
Date of Service: December 24, 2023
Today's Communication
Continue doxycycline 100mg po bid and Augmentin 875mg po bid through 12/27/23.
Assessment / Plan
# Fever, Leukocytosis resolved.
# Possible PNA
- CXR 'subtle focus of increased opacity' MIMA
- pt wo cough
-Continue doxycycline 100mg po bid and Augmentin 875mg po bid through 12/27/23.
# Additional Past Medical History:
Hypertension
Diabetes mellitus, type II
Asthma
Chronic hypoxemic resp failure on home O2
ckd3b
Heart failure, EF 45-50%
Aortic stenosis
Right lower extremity DVT
Lymphedema
Venous insufficiency
Sleep apnea on nocturnal oxygen
Class III obesity BMI 43
Benign breast mass resection
Chief Complaint
-: Pneumonia
Subjective / Review of Systems
Feels better. Asking if going home today.
Vital Signs / Physical Exam
Vital Signs
Vital Signs
Temp Pulse Resp BP Pulse Ox
98.3 F 63 18 129/71 95
12/24/23 07:30 12/24/23 07:55 12/24/23 07:55 12/24/23 07:30 12/24/23 07:55
Physical Exam
Constitutional: No Acute Distress and Comfortable
Cardiovascular: Regular Rate and S1/S2
Pulmonary: Clear
Gastrointestinal: Soft, Non Tender and Non Distended
Extremities: Edema (lymphedema)
Neurological: AO x 3
Objective Data
Lab Data
Lab Results
12/24/23 05:39
12/24/23 05:39
Estimated Creat Clear 38 ml/min 12/24/23 05:39
Lactic Acid 1.4 mmol/L (0.7-2.0) 12/21/23 19:07
Total Bilirubin 0.6 mg/dl (0.2-1.3) 12/23/23 05:31
AST 26 U/L (14-36) 12/23/23 05:31
ALT 15 U/L (0-35) 12/23/23 05:31
Alkaline Phosphatase 95 U/L (38-126) 12/23/23 05:31
Most recent labs reviewed.
Micro Results:
12/21/23 14:10 Blood Culture - Preliminary
Blood/Venous No Growth in 48 hours- Final report to follow
12/21/23 14:10 Blood Culture - Preliminary
Blood/Venous No Growth in 48 hours- Final report to follow
12/22/23 09:43 Nasal Screen MRSA (PCR) - Final
Nose Staph aureus MRSA
12/22/23 05:28 Legionella Urinary Antigen - Final
Urine Negative for Legionella pneumophila Serogroup 1 antigen.
A negative result does not rule out the possiblity of
Legionella infection due to other serogroups or species of
Legionella. Clinical correlation is recommended.
Streptococcus pneumoniae Antigen (M - Final
Negative for Streptococcus pneumoniae antigen.
A negative result does not exclude infection with
Streptococcus pneumoniae. Clinical correlation is
recommended.
12/21/23 19:02 Influenza Types A & B (ROBER) - Final
Nasal Swab Negative for Influenza A & B, NAAT
Negative results must be combined with clinical observations
and patient history.
Nucleic Acid Amplification test (NAAT)performed on the
[employer] platform.
12/21/23 CXR: Subtle focus of hazy increased opacity projecting over the medial aspect of the left upper lung, new from recent chest radiograph. This is suspicious for a small focal area of pneumonia.
[2023-12-24] MEDS: LASIX 80 MG PO (09:24)
[2023-12-24] MEDS: ASPIR LOW (ENTERIC COATED) 81 MG PO (09:24)
[2023-12-24] MEDS: LIPITOR 20 MG PO (09:24)
[2023-12-24] MEDS: TOPROL XL 25 MG PO (09:25)
[2023-12-24] MEDS: SORBITRATE 30 MG PO (09:25)
[2023-12-24] MEDS: VIBRAMYCIN 100 MG PO (09:25)
[2023-12-24] MEDS: FEOSOL 325 MG PO (09:25)
[2023-12-24] MEDS: THERAGRAN 1 TABLET PO (09:26)
[2023-12-24] MEDS: AUGMENTIN 875 MG/125 MG 1 TABLET PO (09:26)
[2023-12-24] MEDS: KCL 20 MEQ PO (09:26)
[2023-12-24] MEDS: LAC HYDRIN, AM LACTIN LOTION 1 APPLIC TOPICAL (09:26)
[2023-12-24] MEDS: DESENEX/MITRAZOL/ZEASORB 1 APPLIC TOPICAL (09:27)
[2023-12-24] MEDS: HYDROPHOR 1 APPLIC TOPICAL (09:27)
[2023-12-24] MEDS: LIDOCAINE 4% PATCH TOPICAL (09:27)
[2023-12-24] MEDS: VISBIOME 2 CAP PO (09:41)
[2023-12-24] MEDS: IMODIUM 2 MG PO (10:06)
[2023-12-24 11:45] VITALS: BP 136/69
--- NOTE | 2023-12-24 14:26 | VNURNOTE ---
VN resumption of care completed in [facility] after review of chart and discussion with patient. Patient insists on returning home and will not consider going to SNF, private CG discussed and she said that her dgt is home and can assist her.
[facility]
--- NOTE | 2023-12-24 15:30 | W.DCSUMMARY ---
Discharge Summary
Discharge Data
Date of Admission: 12/21/23
Date of Discharge: 12/24/23
-
Pending Results: Yes
Additional Pending Results:
official culture results
Discharge Plan
-
Patient Disposition: Home with Home Care
Discharge Diagnosis/Procedures: Sepsis secondary to hospital-acquired pneumonia
MRSA screen positive
Acute toxic metabolic encephalopathy resolved
Chronic heart failure mid range ejection fraction
Valvular heart disease
Acute on Chronic hypoxic respiratory failure baseline 2L of oxygen
COPD
Hypertension
Prediabetes
Chronic Kidney Disease Stage III
Anemia of chronic disease
Chronic lymphedema
Stage II sacral wound
Morbid obesity
Obstructive sleep apnea not on CPAP
Overgrown Toenails
Bilateral Knee Pain Severe Arthritis
Condition: Fair
Diet: Low Cholesterol and 2 Gram Sodium
Activity: With assistance, As tolerated and With Walker
Driving Restrictions: No driving
Bathing Restrictions: None
Blood Work: Please repeat CBC and BMP with primary care provider in 1 week of discharge.
Other Services: VN, PT and OT
Specialty Instructions: Weigh Daily- Call MD for wt gain/loss 3 lbs overnight/5 lbs in 1 week
Activity Restrictions/Additional Instructions:
Wound Care Instructions
legs,buttock and ischium: clean with soap and water, smear of honey gel adaptic and silicone foam change q other day and prn soilage.
mona wraps daily remove at hs
mineral oil to legs daily
Follow up at wound care center call for an appointment.
Follow up with primary care provider and Podiatry in 1 week of discharge. Follow up with your orthopedic in 2 weeks of discharge.
Doxycycline and Augmentin have been prescribed to continue through 12/27/23Thursday- to complete treatment of pneumonia.
Iron supplementation has been prescribed for anemia.
It is recommended that you continue to hold your home hydralazine medication at this time due to recent resolved hypotension. Keep a daily log of your blood pressures at home and follow up with primary care provider in 1 week of discharge to
determine when safe to resume or if unnecessary to resume.
Please take medications as prescribed/recommended and follow up with primary care provider and/or other healthcare provider involved in your care for refills and/or further adjustment to your medication regimen as necessary.
Referrals:
Brad Morrison DPM [Specified Professional Personl] - in one week
Miguel Bella DO [Family Provider] - in one week
Prescriptions:
New
amoxicillin-pot clavulanate 875-125 mg Tablet
1 tab PO Q12 Qty: 7 0RF
Rx Instructions:
Continue through 12/27/23Thursday then stop
ferrous sulfate [FeroSul] 325 mg (65 mg iron) Tablet
325 mg PO DAILY 30 Days Qty: 30 0RF
white petrolatum [Hydrophor] 42 % Ointment
1 applic topical DAILY Qty: 100 0RF
doxycycline hyclate 100 mg Capsule
100 mg PO Q12 Qty: 7 0RF
Rx Instructions:
Continue through 12/27/23Thursday then stop
MediHoney (honey) 80 % gel
1 applic topical Q OTHER DAY Qty: 44 0RF
Visbiome 112.5 billion cell capsule
2 cap PO DAILY 7 Days Qty: 14 0RF
Continued
metolazone 2.5 mg Tablet
2.5 mg PO DAILY@0730
atorvastatin 20 mg Tablet
20 mg PO DAILY
Patient Comments:
12/15/2023, daughter unsure whether morning or evening med.
miconazole nitrate [Miconazorb AF] 2 % Powder
1 applic TOPICAL BID
therapeutic multivitamin Tablet
1 tab PO DAILY
Patient Comments:
12/15/2023, daughter unsure whether morning or evening vitamin.
aspirin 81 mg Tablet,Delayed Release (Dr/Ec)
81 mg PO DAILY
Patient Comments:
12/15/2023, daughter unsure whether morning or evening med.
acetaminophen 650 mg Tablet Extended Release
1,300 mg PO BIDPRN PRN (Reason: mild pain)
isosorbide dinitrate 30 mg Tablet
30 mg PO DAILY
Patient Comments:
12/15/2023, daughter unsure whether morning or evening med.
potassium chloride 20 mEq Tablet,Er Particles/Crystals
20 meq PO DAILY
furosemide 80 mg Tablet
80 mg PO BID@0800,1600
lidocaine 5 % Adhesive Patch,Medicated
2 patch TOPICAL DAILY PRN (Reason: B/L shoulders)
Patient Comments:
12/15/2023, 1 patch per shoulder dailyprn.
ammonium lactate 12 % Cream
1 applic TOPICAL BID
Patient Comments:
12/15/2023, wound care.
metoprolol succinate 25 mg Tablet Extended Release 24 Hr
25 mg PO DAILY
Patient Comments:
12/15/2023, daughter unsure whether morning or evening med.
fluticasone propion-salmeterol [Advair HFA] 115-21 mcg/actuation Hfa Aerosol Inhaler
2 puff INHALATION R BID
Patient Comments:
12/15/2023, pt. cannot have generic form per daughter; pt. reacts negatively to it.
Ultra Collagen + C
1 tab PO DAILY
Patient Comments:
12/15/2023, daughter unsure whether morning or evening vitamin; 1000-10 mg tablet.
diclofenac sodium 1 % gel
1 applic topical Q6HPRN PRN (Reason: B/L knees)
Held
hydralazine 50 mg Tablet
50 mg PO BID
Hold Instructions: Follow up with primary care provider in 1 week of discharge to determine when safe to resume or if necessary to resume.
Discharge Orders:
Discharge Patient (As Directed); Ordered 12/24/23
Ordered By: Dave-Ronny Sheu
Discharge Date and Time
Print Language: BENGALI
--- NOTE | 2023-12-24 15:37 | CM ---
Case management following for d/c planning
Pt for d/c today
Per pts daughter - bariatric commode to be delivered tomorrow
Has ride home with family
[facility] to follow
Discussed IMM
Plan - home with [facility]
[2023-12-24 15:40] VITALS: BP 127/59
== END 2023-12-24 16:05 | disposition home health service (06) | DRG 871 ==
LOC: 3 WEST ACU 18:53
PROVIDERS: Emergency Medicine; Nurse Practitioner; ADMITTING PHYSICIAN Family Medicine; ATTENDING PHYSICIAN Internal Medicine; EMERGENCY PHYSICIAN Student in an Organized Health Care Education/Training Program; FAMILY PHYSICIAN Family Medicine; OTHER PHYSICIAN Internal Medicine Infectious Disease
DX: A41.9 Sepsis, unspecified organism (principal); G92.8 Other toxic encephalopathy; J18.9 Pneumonia, unspecified organism; J96.21 Acute and chronic respiratory failure with hypoxia; I13.0 Hypertensive heart and chronic kidney disease with heart failure and stage 1 through stage 4 chronic kidney disease, or unspecified chronic kidney disease; Z68.41 Body mass index [BMI] 40.0-44.9, adult; I38 Endocarditis, valve unspecified; J44.0 Chronic obstructive pulmonary disease with (acute) lower respiratory infection; E11.22 Type 2 diabetes mellitus with diabetic chronic kidney disease; N18.32 Chronic kidney disease, stage 3b; G47.33 Obstructive sleep apnea (adult) (pediatric); D63.8 Anemia in other chronic diseases classified elsewhere; E78.00 Pure hypercholesterolemia, unspecified; I89.0 Lymphedema, not elsewhere classified; E11.42 Type 2 diabetes mellitus with diabetic polyneuropathy; E78.5 Hyperlipidemia, unspecified; I87.8 Other specified disorders of veins; G43.909 Migraine, unspecified, not intractable, without status migrainosus; Y95 Nosocomial condition; M17.0 Bilateral primary osteoarthritis of knee; L89.309 Pressure ulcer of unspecified buttock, unspecified stage; E66.01 Morbid (severe) obesity due to excess calories; Z99.81 Dependence on supplemental oxygen; Z86.718 Personal history of other venous thrombosis and embolism; Z91.119 Patient's noncompliance with dietary regimen due to unspecified reason; Z91.148 Patient's other noncompliance with medication regimen for other reason; Z83.3 Family history of diabetes mellitus; Z82.49 Family history of ischemic heart disease and other diseases of the circulatory system; Z88.8 Allergy status to other drugs, medicaments and biological substances; Z88.6 Allergy status to analgesic agent; Z88.1 Allergy status to other antibiotic agents; Z91.040 Latex allergy status; Z11.52 Encounter for screening for COVID-19; Z91.199 Patient's noncompliance with other medical treatment and regimen due to unspecified reason
CPT/HCPCS: 93308; 51701; 71045; 73560; 80048; 80053; 80202; 81003; 82248; 82805; 83605; 83735; 83880; 84100; 85014; 85018; 85025; 85027; 87040; 87449; 87502; 87641; 87811; 87899; 93005; 93321; 93325; 94640; 96365; 96366; 96367; 97162; 97166; 97530; 97535; 99285

== ENCOUNTER → 2023-12-30 14:37 | Outpatient (REF) | payer MEDICARE, OTHER, SELFPAY ==
[2023-12-30 16:37] LABS: Blood Urea Nitrogen 46 mg/dl (7-17); Calcium 8.7 mg/dl (8.4-10.2); Carbon Dioxide 26 mmol/L (22-30); Chloride 101 mmol/L (98-107); Glucose 139 mg/dl (70-99); Potassium 3.6 mmol/L (3.5-5.1); Sodium 139 mmol/L (135-145)
== END ==
LOC: CLAB 14:37
PROVIDERS: ATTENDING PHYSICIAN Family Medicine
DX: D64.9 Anemia, unspecified (principal); N18.32 Chronic kidney disease, stage 3b
CPT/HCPCS: 80048

== ENCOUNTER → 2024-01-12 08:42 | Outpatient (REF) | payer MEDICARE, OTHER, SELFPAY | LOC: WOUND 08:42 | PROVIDERS: ATTENDING PHYSICIAN Surgery; FAMILY PHYSICIAN Family Medicine | DX: I87.311 Chronic venous hypertension (idiopathic) with ulcer of right lower extremity (principal); L97.312 Non-pressure chronic ulcer of right ankle with fat layer exposed; L89.312 Pressure ulcer of right buttock, stage 2; L89.322 Pressure ulcer of left buttock, stage 2; L97.321 Non-pressure chronic ulcer of left ankle limited to breakdown of skin; L97.111 Non-pressure chronic ulcer of right thigh limited to breakdown of skin; I87.2 Venous insufficiency (chronic) (peripheral); I89.0 Lymphedema, not elsewhere classified; I73.9 Peripheral vascular disease, unspecified; E11.59 Type 2 diabetes mellitus with other circulatory complications; I49.3 Ventricular premature depolarization; I50.32 Chronic diastolic (congestive) heart failure; N18.32 Chronic kidney disease, stage 3b; E11.29 Type 2 diabetes mellitus with other diabetic kidney complication | CPT/HCPCS: 11042 ==

== ENCOUNTER → 2024-01-15 08:02 | Outpatient (REF) | payer MEDICARE, OTHER, SELFPAY | LOC: RAD 08:02 | PROVIDERS: ATTENDING PHYSICIAN Surgery; FAMILY PHYSICIAN Family Medicine | DX: I87.311 Chronic venous hypertension (idiopathic) with ulcer of right lower extremity (principal); I87.2 Venous insufficiency (chronic) (peripheral); I73.9 Peripheral vascular disease, unspecified | CPT/HCPCS: 93922; 93925; 93971 ==

== ENCOUNTER → 2024-01-22 08:58 | Outpatient (REF) | payer MEDICARE, OTHER, SELFPAY | LOC: HWRAD 08:58 | PROVIDERS: ATTENDING PHYSICIAN Internal Medicine Cardiovascular Disease; FAMILY PHYSICIAN Family Medicine | DX: R05.9 Cough, unspecified (principal) | CPT/HCPCS: 71046 ==

== ENCOUNTER → 2024-01-25 08:24 | Outpatient (REF) | payer MEDICARE, OTHER, SELFPAY | LOC: WOUND 08:24 | PROVIDERS: ATTENDING PHYSICIAN Surgery; FAMILY PHYSICIAN Family Medicine | DX: I87.311 Chronic venous hypertension (idiopathic) with ulcer of right lower extremity (principal); L97.312 Non-pressure chronic ulcer of right ankle with fat layer exposed; L89.312 Pressure ulcer of right buttock, stage 2; L89.322 Pressure ulcer of left buttock, stage 2; L97.321 Non-pressure chronic ulcer of left ankle limited to breakdown of skin; L97.111 Non-pressure chronic ulcer of right thigh limited to breakdown of skin; I87.2 Venous insufficiency (chronic) (peripheral); L97.511 Non-pressure chronic ulcer of other part of right foot limited to breakdown of skin; I89.0 Lymphedema, not elsewhere classified; I73.9 Peripheral vascular disease, unspecified | CPT/HCPCS: 11042 ==

== ENCOUNTER → 2024-02-08 07:54 | Outpatient (REF) | payer MEDICARE, OTHER, SELFPAY | LOC: WOUND 07:54 | PROVIDERS: ATTENDING PHYSICIAN Surgery; FAMILY PHYSICIAN Family Medicine | DX: I87.311 Chronic venous hypertension (idiopathic) with ulcer of right lower extremity (principal); L97.312 Non-pressure chronic ulcer of right ankle with fat layer exposed; L89.312 Pressure ulcer of right buttock, stage 2; L89.322 Pressure ulcer of left buttock, stage 2; L89.623 Pressure ulcer of left heel, stage 3; L97.321 Non-pressure chronic ulcer of left ankle limited to breakdown of skin; L97.111 Non-pressure chronic ulcer of right thigh limited to breakdown of skin; I87.2 Venous insufficiency (chronic) (peripheral); I89.0 Lymphedema, not elsewhere classified; I73.9 Peripheral vascular disease, unspecified; E11.59 Type 2 diabetes mellitus with other circulatory complications; I49.3 Ventricular premature depolarization; I50.32 Chronic diastolic (congestive) heart failure; N18.32 Chronic kidney disease, stage 3b; E11.22 Type 2 diabetes mellitus with diabetic chronic kidney disease | CPT/HCPCS: 11042 ==

== ENCOUNTER 2024-02-15 09:26 | Inpatient (IN) | payer MEDICARE, OTHER, SELFPAY ==
[2024-02-13 17:21] VITALS: BP 125/89; BMI 39.6
[2024-02-13 17:45] LABS: % Basophils 1.1 % (0-2); % Eosinophils 2.9 % (0-6); % Immature Granulocytes 0.6 % (0-0.5); % Lymphocytes 5.8 % (20.5-51.1); % Monocytes 9.4 % (1.7-9.3); % Neutrophils 80.2 % (42.2-75.2); Absolute Basophils 0.1 10^3/uL (0-0.2); Absolute Eosinophils 0.3 10^3/uL (0-0.7); Absolute Immature Granulocytes 0.1 10^3/uL (0-0.05); Absolute Lymphocytes 0.6 10^3/uL (1.2-3.4); Absolute Neutrophils 8.1 10^3/uL (1.4-6.5); Hemoglobin 10.8 g/dL (12.0-16.0); Mean Corp Hgb Conc. 32.7 g/dL (33.0-37.0); Mean Corpuscular Hgb 27.2 pg (27.0-31.0); Mean Corpuscular Volume 83.1 fL (81.0-99.0); Mean Platelet Volume 9.1 fL (7.4-10.4); Nucleated Red Blood Cells % 0 %; Platelet Count 311 10^3/uL (130-400); Red Blood Cell Count 3.97 10^6/uL (4.20-5.40); Red Cell Dist. Width 20.4 % (11.5-14.5); White Blood Cell Count 10.1 10^3/uL (4.8-10.8)
--- NOTE | 2024-02-13 18:40 | ED.GENMED ---
History of Present Illness
General
Chief Complaint: Skin Problem
Source: patient
Exam Limitations: none
Time Seen by Provider: 02/13/24 18:00
History of Present Illness
History of Present Illness:
78-year-old female with history of lymphedema emg-yxtkoec-hkezwctfs diabetes presents worsening wound to the right heel. She has been seeing wound care and getting regular treatments however the wound has recently enlarged become more painful and
more malodorous. She denies a fever. No known injury. No other complaints at this time
Past History
Past History
ED Past Medical History: Arrthythmia (Frequent PVCs), Asthma, CHF, COPD, HTN, Hypercholesterolemia, NIDDM, Other (Chronic lymphedema, Migraines, PNA, DVT, Anemia) and Other (Right lower extremity DVT October 2019)
ED Past Surgical History: Gynecological (Several D&Cs, miscarriage), Tonsilectomy and Other (Cancerous mass removed from right leg 20 years ago. Breast mass removed noncancerous. cataracts, )
Social History
Tobacco: Non-smoker
Alcohol: None
Drug: None
Personal:
Living: assisted living (She lives with her family but she is in rehab at this time at [facility])
Employment: Retired
Family History
Family History: Other (Noncontributory)
Phy Exam
Physical Exam
Physical Exam:
General: Obese female no acute respiratory distress
HEENT: Normal cephalic atraumatic
Heart: Regular rate and rhythm
Lungs: Clear no wheeze
Skin: 3 cm diameter ulcer right posterior heel with surrounding erythema and tenderness. There is no significant discharge but is malodorous. Extremities: Significant edema
And lymphedema noted to bilateral lower extremities
Course
Orders/Labs/Results
Orders:
Orders
02/13/24 17:36
Complete Blood Count/With Diff Urgent
02/13/24 18:09
CR Foot - Right Min 3 Views Urgent
Comment:
Reason For Exam: heel infection
02/13/24 18:59
Comprehensive Metabolic Panel Routine
02/13/24 20:19
Piperacillin/Tazo 3.375 Gram [Zosyn] 3.375 gram in 50 ml IV NOW
02/13/24 22:00
VANCOMYCIN Pharmacy to Dose [VANCOCIN Pharmacy to Dose] 1 each Pharmacy To Prepare [Call Pharmacy To Prepare] 0 ml IV PER PROTOCOL
Abnormal Lab Results
02/13/24 02/13/24
17:36 18:59
RBC 3.97 L 10^6/uL
(4.20-5.40)
Hgb 10.8 L g/dL
(12.0-16.0)
Hct 33.0 L %
(37.0-47.0)
MCHC 32.7 L g/dL
(33.0-37.0)
RDW 20.4 H %
(11.5-14.5)
Abs Immat Gran (auto) 0.1 H 10^3/uL
(0-0.05)
Absolute Neuts (auto) 8.1 H 10^3/uL
(1.4-6.5)
Absolute Lymphs (auto) 0.6 L 10^3/uL
(1.2-3.4)
Absolute Monos (auto) 1.0 H 10^3/uL
(0.1-0.6)
Immature Gran % 0.6 H %
(0-0.5)
Neutrophils % 80.2 H %
(42.2-75.2)
Lymphocytes % 5.8 L %
(20.5-51.1)
Monocytes % 9.4 H %
(1.7-9.3)
Carbon Dioxide 34 H mmol/L
(22-30)
BUN 56 H mg/dl
(7-17)
Creatinine 1.4 H mg/dL
(0.6-1.0)
Glucose 121 H mg/dl
(70-99)
Calcium 8.1 L mg/dl
(8.4-10.2)
Alkaline Phosphatase 129 H U/L
(38-126)
Albumin 2.7 L g/dl
(3.5-5.0)
02/13/24 17:36
02/13/24 18:59
Vital Signs
Initial and Last Documented VS:
Initial Vital Signs
Temp Pulse Resp BP Pulse Ox
97.6 F 62 16 125/89 93
02/13/24 17:21 02/13/24 17:21 02/13/24 17:21 02/13/24 17:21 02/13/24 17:21
Last Documented Vital Signs
Temp Pulse Resp BP Pulse Ox
97.6 F 65 18 126/72 98
02/13/24 17:21 02/13/24 19:30 02/13/24 19:30 02/13/24 19:30 02/13/24 17:30
MDM/Problems Addressed
Differential Diagnosis Includes:
Right foot wound. Consider cellulitis versus osteomyelitis. Patient has chronic lymphedema which is contributing towards patient's wounds on her legs. She is afebrile here. Will check labs and x-ray
*Critical Care Note
Total Time (30-74mins, 75-104mins- exclusive of procedures): Not Applicable
Update Note
Update Note:
X-rays negative for osteomyelitis. Patient has malodorous infected heel ulcer on right foot with history of diabetes and lymphedema. She has been seeing wound care. Will admit to hospital vancomycin and Zosyn
ED Attending Note
-
Portions of this chart may have been created with voice recognition software.� Occasional wrong word or��sound alike� substitutions may have occurred due to the inherent limitations of voice recognition software.
Discharge Plan
Departure
Patient Disposition: Admit
Date of Disposition: 02/13/24
Time of Disposition: 20:21
Admit to: Med/Surg
Presentation/result/management discussed w/ accepting MD/DO: Hospitalist
Discharge Problem:
INFECTED FOOT ULCER
Prescriptions:
No Action
metolazone 2.5 mg Tablet
2.5 mg PO DAILY@0730
atorvastatin 20 mg Tablet
20 mg PO DAILY
Patient Comments:
12/15/2023, daughter unsure whether morning or evening med.
miconazole nitrate [Miconazorb AF] 2 % Powder
1 applic TOPICAL BID
therapeutic multivitamin Tablet
1 tab PO DAILY
Patient Comments:
12/15/2023, daughter unsure whether morning or evening vitamin.
aspirin 81 mg Tablet,Delayed Release (Dr/Ec)
81 mg PO DAILY
Patient Comments:
12/15/2023, daughter unsure whether morning or evening med.
acetaminophen 650 mg Tablet Extended Release
1,300 mg PO BIDPRN PRN (Reason: mild pain)
isosorbide dinitrate 30 mg Tablet
30 mg PO DAILY
Patient Comments:
12/15/2023, daughter unsure whether morning or evening med.
potassium chloride 20 mEq Tablet,Er Particles/Crystals
20 meq PO DAILY
furosemide 80 mg Tablet
80 mg PO BID@0800,1600
lidocaine 5 % Adhesive Patch,Medicated
2 patch TOPICAL DAILY PRN (Reason: B/L shoulders)
Patient Comments:
12/15/2023, 1 patch per shoulder dailyprn.
ammonium lactate 12 % Cream
1 applic TOPICAL BID
Patient Comments:
12/15/2023, wound care.
hydralazine 50 mg Tablet
50 mg PO BID
metoprolol succinate 25 mg Tablet Extended Release 24 Hr
25 mg PO DAILY
Patient Comments:
12/15/2023, daughter unsure whether morning or evening med.
fluticasone propion-salmeterol [Advair HFA] 115-21 mcg/actuation Hfa Aerosol Inhaler
2 puff INHALATION R BID
Patient Comments:
12/15/2023, pt. cannot have generic form per daughter; pt. reacts negatively to it.
Ultra Collagen + C
1 tab PO DAILY
Patient Comments:
12/15/2023, daughter unsure whether morning or evening vitamin; 1000-10 mg tablet.
diclofenac sodium 1 % gel
1 applic topical Q6HPRN PRN (Reason: B/L knees)
amoxicillin-pot clavulanate 875-125 mg Tablet
1 tab PO Q12 Qty: 7 0RF
Rx Instructions:
Continue through 12/27/23Thursday then stop
ferrous sulfate [FeroSul] 325 mg (65 mg iron) Tablet
325 mg PO DAILY 30 Days Qty: 30 0RF
white petrolatum [Hydrophor] 42 % Ointment
1 applic topical DAILY Qty: 100 0RF
doxycycline hyclate 100 mg Capsule
100 mg PO Q12 Qty: 7 0RF
Rx Instructions:
Continue through 12/27/23Thursday then stop
MediHoney (honey) 80 % gel
1 applic topical Q OTHER DAY Qty: 44 0RF
Visbiome 112.5 billion cell capsule
2 cap PO DAILY 7 Days Qty: 14 0RF
Referrals:
Giuseppe Brasher MD [Family Provider] -
Interventions
Interventions:
*Risk Screen - Suicide Last Done: 02/13/24 17:25
*General Assessment Last Done: 02/13/24 17:25
*Neglect/Abuse Screening Last Done: 02/13/24 17:25
ED- Fall Risk Assessment Last Done: 02/13/24 17:27
*ED COVID-19 Vaccine History Last Done: 02/13/24 17:25
ED-Skin Assessment Last Done: 02/13/24 20:02
Discharge Date and Time
Print Language: SIERRA LEONEAN
[2024-02-13 19:19] LABS: ALT (SGPT) 12 U/L (0-35); AST (SGOT) 21 U/L (14-36); Albumin 2.7 g/dl (3.5-5.0); Alkaline Phosphatase 129 U/L (38-126); Blood Urea Nitrogen 56 mg/dl (7-17); Calcium 8.1 mg/dl (8.4-10.2); Carbon Dioxide 34 mmol/L (22-30); Chloride 98 mmol/L (98-107); Estimated Creatinine Clearance 36 ml/min; Glucose 121 mg/dl (70-99); Sodium 136 mmol/L (135-145); Total Bilirubin 0.5 mg/dl (0.2-1.3); Total Protein 6.4 g/dl (6.3-8.2); eGFR 38.03
[2024-02-13 19:30] VITALS: BP 126/72
[2024-02-13 20:00] VITALS: BP 108/75
[2024-02-13] MEDS: ZOSYN 50 IV (20:29)
--- NOTE | 2024-02-13 20:31 | W.PN.UPDATE ---
Update Note
Progress Note Update
I saw and examined the patient.
The IT PROGRAM MANAGER's,Hanna Talbert, note was reviewed and I agree with the note with changes as below:
This is an 78yo F with PMH HFmrEF, HTN/HLD, Hx PVCs, COPD/Asthma, MARIAMA (not no cpap), Chronic Hypoxic Resp Failure on 2LNC, CKD III, DM2, Peripheral Neuropathy, Morbid Obesity, Chronic Lymphedema presents to ER with complaint of worsening wound of
right heel despite following with wound care. +worsening odor and increasing pain (10/10, worse when ambulating today). Pt states heel ulcer developped after recent rehab stint. Denies fever, chills, dizziness/LH, CP, Palps, wheezing, cough, sob,
abd pain, n/v/d/c, dysuria, calf or leg pain. Pt lives with daughter who aids in her wound care. Also follows with Podatry Dr. Eunice Paiz.
ER course: Presents with V.S.S. on home 2LNC. WBC 10.1K, Hgb 10.8 g/dL, BUN/Cr 56/1.4. XR Right Foot: No acute osseous abnormality, no evidence of osteo, mild degenerative changes of foot and extensive vasc calcifications. S/P vanco/zosyn in ER.
Wound care consulted.
PMH/SHx/SocHx/FHx: reviewed as in H&P.
Physical Exam:
GEN: No distress. Following commands without difficulty.
HEENT: NCAT. MMM. Neck supple/nontender.
Cardio: +S1/S2, No M/R/G
Pulm: CTA b/l, no w/r/r.
GI: soft/nt/nd. +BS.
: No Loja. No CVA tenderness.
MSK/Ext: All extremities present. B/L lymphedema. Left anterior tibia dressing intact. Right Heel half-dollar size ulceration with no significant drainage or surrounding erythema. +TTP. Dressing saturated.
Psych: Pleasant, Normal affect.
Neuro: AAOx3. No focal deficits.
A/P:
Right Foot Heel Ulcer
- Afebrile, no leukocytosis
- XR Right Foot: No acute osseous abnormality, no evidence of osteo, mild degenerative changes of foot and extensive vasc calcifications
- S/P vanco/zosyn in ER. Unclear whether acutely infected. Check CRP/ESR to aid in continuating abx
- Follow up Wound Cx
- Consult wound care for debridement eval. Consider resuming Abx vs ID consutlation.
Sacral Decub Ulcer
- Wound care consult, using medihoney at home
Chronic HFmrEF, compensated
- TTE 12/21/2023: EF 45-50%, No MR, Mild-Mod , PaSP 51mmHg
- Continue home Lasix, metolazone, hydralazine, isordil, BB
- Trend I&O and Daily wts
HTN/HLD - Bp stable. Continue home hydralazine/statin.
Chronic Hypoxic Resp Failure
COPD/Asthma
Hx MARIAMA
- Stable on home 2LNC
- Continue home ICS-LABA
- Intolerant to cpap
DM2
- Last A1C 5.7% 11/2023
- Appears to be using Prandin PRN. Place on hold with SSI/accucheck.
CKD III - BUN/Cr 56/1.4. At or near baseline. Follow trends with home diuretic therapy.
Hx RLE DVT (2019) - No longer on A.C.
Anemia of Chronic Disease - Hgb 10.8 g/dL. At or above prior baselines. MCV 83. Follow trends for stability, currently above transfusion thresholds.
Chronic Lymphedema
Diet: Diabetic, fluid restrict.
DVT Ppx: Lovenox
Code Status: Full
--- NOTE | 2024-02-13 20:32 | HPS.HSE ---
Family Physician
-
Family Physician: Giuseppe Brasher
Chief Complaint
-
Right heel wound enlarged, malodorous
History of Present Illness
78-year-old female with history of chronic bilateral leg lymphedema/venous stasis presenting to the ER with a worsening right heel wound that has become enlarged and more painful along with malodorous. She does have past medical history of DM2.
Her daughter states she mainly sleeps in a recliner due to not being able to lift herself or daughter left her up in the hospital bed due to her weight. She is wearing daily Tubigrips with Velcro compression stockings. She has chronic stage II
sacral ulcers/buttocks ulcers present on admission that been persistent since August 2023 admission. She denies fever, chills, chest pain, palpitations, shortness of, cough, abdominal pain, nausea, vomit, diarrhea, urinary symptoms. Other
She has past medical history chronic CHF, chronic respiratory failure on chronic 2 L nasal cannula, history of multiple sepsis pneumonia most recent as 12/21/2023., MSRA screen + November 2023, cardiomyopathy, chronic peripheral edema, CKD 3B, COVID-19
infection July 27, 2023, benign HTN, DM 2, HLD, asthma, sleep apnea no CPAP, chronic lymphedema/chronic venous stasis, right lower extremity DVT October 2019, morbid obesity, history of stage II pressure ulcer buttocks and stage II thigh posterior
buttocks ulcers August 2023 admission
Medical History
Past Medical History
Past Medical History: Reports Other
Additional Past Medical History:
Chronic hypoxic respiratory failure on home oxygen 1-2 L via NC
Chronic HFrEF (40-45%)
Frequent PVCs and bigeminy
Asthma
Chronic Lymphedema and chronic venous stasis changes
Hypertension
HLD
DM II
MARIAMA
Peripheral Neuropathy
History of DVT
Morbid Obesity
Medication and dietary non-adherence
Past Surgical History: Reports Other
Additional Past Surgical History:
B/l cataract surgery, Several D&Cs, miscarriage, Tonsilectomy, Cancerous mass removed from right leg 20 years ago, Breast mass removed noncancerous.
Social History
Tobacco: Non-smoker
Alcohol: None
Drug: None
Personal: Single
Living: With Family (Daughter)
Employment: Retired
Family History
Family History: Other (Father: DM, HTN Mother: Thyroid Disease)
Allergies / Home Medications
Allergies reflects when Allergies were last updated in [facility].
Home Medications with original date entered in [facility]
Allergy/Medication List:
Allergies
Allergy/AdvReac Type Severity Reaction Status Date / Time
albuterol Allergy 'could not Verified 02/13/24 17:29
breath'
ceftriaxone [From Rocephin] Allergy Rash Verified 02/13/24 17:29
08/28/23
admission
cefuroxime [From Ceftin] Allergy facial Verified 02/13/24 17:29
droop,lip
swell/Margie
cefepime,
cefazolin
latex Allergy Rash Verified 02/13/24 17:29
levofloxacin [From Levaquin] Allergy facial Verified 02/13/24 17:29
droop,
rash,
numbness
lisinopril Allergy Shortness Verified 02/13/24 17:29
of Breath
naproxen Allergy Rash Verified 02/13/24 17:29
NSAIDS (Non-Steroidal Allergy Rash Verified 02/13/24 17:29
Anti-Inflamma
poison aroldo extract Allergy Unknown Verified 02/13/24 17:29
poison oak extract Allergy Unknown Verified 02/13/24 17:29
Home Medications
Ultra Collagen + C 1 tab PO DAILY Skin Issues 12/15/23
acetaminophen 650 mg tablet,extended release 1,300 mg PO BIDPRN PRN mild pain 12/15/23
ammonium lactate 12 % topical cream 1 applic topical BID B/L lower legs 12/15/23
aspirin 81 mg tablet,delayed release 81 mg PO DAILY Blood Clot Prevention/Tx 12/15/23
atorvastatin 20 mg tablet 20 mg PO DAILY High Cholesterol 12/15/23
diclofenac sodium 1 applic topical Q6HPRN PRN B/L knees 12/15/23
fluticasone propionate 115 mcg-salmeterol 21 mcg/actuation HFA inhaler (Advair HFA) 2 puff inhalation R BID Lung/Breathing Issues 12/15/23
furosemide 80 mg tablet 80 mg PO BID@0800,1600 edema 12/15/23
hydralazine 50 mg tablet 50 mg PO BID Blood Pressure 12/15/23
isosorbide dinitrate 30 mg tablet 30 mg PO DAILY Heart Disease/Condition 12/15/23
lidocaine 5 % topical patch 2 patch topical DAILY PRN B/L shoulders 12/15/23
metolazone 2.5 mg tablet 2.5 mg PO DAILY@0730 Fluid Retention/Swelling 12/15/23
metoprolol succinate 25 mg tablet,extended release 24 hr 25 mg PO DAILY Blood Pressure 12/15/23
miconazole nitrate 2 % topical powder (Miconazorb AF) 1 applic topical BID under B/L breasts/groin 12/15/23
potassium chloride 20 mEq tablet,extended release(part/cryst) 20 meq PO DAILY Electrolyte Repletion 12/15/23
therapeutic multivitamin 1 tab PO DAILY Supplement 12/15/23
Lactobac no.2-Bifidobac no.1-S. thermo 112.5 billion cell capsule (Visbiome) 2 cap PO DAILY 7 days #14 caps 12/24/23
ferrous sulfate 325 mg (65 mg iron) tablet (FeroSul) 325 mg PO DAILY 30 days #30 tabs 12/24/23
honey 80 % topical gel (MediHoney (honey)) 1 applic topical Q OTHER DAY #44 mL 12/24/23
levalbuterol tartrate 45 mcg/actuation aerosol inhaler (Xopenex HFA) 2 inh inhalation Q6H 02/13/24
Review of Systems
-
History Source: Patient and Family (Daughter at bedside)
Constitutional: Denies Weight Gain, Fatigue or Chills
EENT: Denies Sore Throat or Runny Nose
Respiratory: Denies Cough or Trouble Breathing
Cardiac: Denies Chest Pain, Diaphoresis, Palpitations or Syncope
Abdomen/GI: Denies Abdominal Pain, Nausea, Vomiting, Diarrhea, Constipated, Bloody Stools or Black Stools
: Denies Dysuria, Frequency, Flank Pain, Incontinence, Difficulty Voiding or Urgency
Musculoskeletal: Reports Edema (Chronic lymphedema bilateral legs right greater than left, stage II right heel ulcer present on admission malodorous no surrounding erythema); Denies Joint Pain
Skin: Denies Itching or Rash
Neurological: Denies Dizzy or Headache
Endocrine: Reports No Symptoms
Hematologic/Lymphatic: Reports No Symptoms
Psych: Reports Calm
Physical Exam
Vital Signs
Vital Signs
Temp Pulse Resp BP Pulse Ox
97.6 F 65 18 126/72 98
02/13/24 17:21 02/13/24 19:30 02/13/24 19:30 02/13/24 19:30 02/13/24 17:30
Physical Exam
General: Comfortable, Conversant and Morbidly Obese; No Fever or Chills
HEENT: NormoCephalic, Anicteric, Moist mucous membranes, [place] Conjunctivae and No Ptosis
Respiratory: Clear; No Wheezes, Rales or Rhonchi
Cardiac: S1/S2, Regular Rhythm and Peripheral Edema (Chronic lymphedema bilateral legs right greater than left, stage II right heel ulcer present on admission malodorous no surrounding erythema); No Murmur, Rub or Gallop
GI: Soft, Non Tender, Non Distended, Normal Bowel Sounds and No Hepatosplenomegaly
Rectal: Deferred by Provider
Musculoskeletal: No Clubbing, No Cyanosis, Edema, Left Lower Extremity (Chronic lymphedema bilateral legs right greater than left, stage II right heel ulcer present on admission malodorous no surrounding erythema) and Edema, Right Lower Extremity
(Chronic lymphedema bilateral legs right greater than left, stage II right heel ulcer present on admission malodorous no surrounding erythema); No Edema, Left Upper Extremity or Edema, Right Upper Extremity
Skin: Warm, Dry and Ulcers (Chronic stage II sacral and buttocks ulcers present on admission)
Neuro: AO x 3, No Motor Deficits (While in bed), Nonfocal/grossly intact and No Sensory Deficits; No Slurred Speech, Facial Droop, Tremors or Sedated
Psych: Calm
Laboratory Results
-
02/13/24 17:36
02/13/24 18:59
Laboratory Results
Total Bilirubin 0.5 mg/dl (0.2-1.3) 02/13/24 18:59
AST 21 U/L (14-36) 02/13/24 18:59
ALT 12 U/L (0-35) 02/13/24 18:59
Alkaline Phosphatase 129 U/L (38-126) H 02/13/24 18:59
Data Reviewed
-
Lab Data: Labs Reviewed by me
Impression/Plan
-
Impression/plan:
Admit to MedSurg
#Worsening right heel ulcer diabetic female
#Chronic lymphedema/chronic venous stasis
-Wound culture
-Recent nasal MRSA + 12/17/2023
-Consult wound care
-IV vancomycin, IV Zosyn will give single dose in ER has no current fever or elevated WBC count
-Will check sed rate, CRP
Acute on chronic bilateral buttocks healing stage II pressure ulcer present on admission-persistent since August 2023
Acute on chronic bilateral posterior thighs healing stage II ulcer present on admission persistent since August 2023
-Consult wound care
Has been using Medihoney topical daily per AUG
#DM 2/diabetic neuropathy
Accu-Cheks with SSI, check HgbA1c
-Patient no longer on Prandin
#Right lower extremity DVT October 2019
#Chronic CHF/Cardiomyopathy
#Chronic hypoxic respiratory failure on chronic 2 L nasal cannula
#history of multiple sepsis pneumonia most recent as 12/21/2023.,
I/O, daily weight
2D echo 12/22/2023: EF 45-50%, moderate LVH, moderate reduced LVSF, global hypokinesis,
mildly dilated hypocontractile right ventricle, mild to moderate aortic stenosis peak mean gradients 36/21 mmHg
mild/moderate TR pulm arterial pressure 51 mmHg, IVC mildly dilated
#CKD 3B
Creat 1.4 appears baseline
-Follow BMP
#Anemia of chronic disease
Hgb 10.8 baseline appears 10.5
#HTN�benign
Continue hydralazine 50 mg twice daily
#HLD
-continue atorvastatin 20 mg at bedtime
#COVID-19 infection 07/27 - 07/31/2023
-Treated with dexamethasone and Paxlovid along with bronchodilators
#Asthma-no acute exacerbation
#Sleep apnea
-Stopped using CPAP several years ago
#Morbid obesity due to excess calorie consumption�BMI 39.6
Weight loss recommended, 1800diet, fluid restrict
DVT prophylaxis
Subcu Lovenox
Full code
[2024-02-13] MEDS: VANCOCIN 540 MG IV (20:56)
[2024-02-13 21:13] VITALS: BP 106/41
[2024-02-13 21:30] LABS: Erythrocyte Sed Rate 92 mm/hour (0-20)
[2024-02-13 22:40] VITALS: BP 130/71; BMI 38.3
[2024-02-13 23:35] VITALS: BP 133/63
[2024-02-14] MEDS: DESENEX/MITRAZOL/ZEASORB 1 APPLIC TOPICAL ×3 (00:05→21:10)
[2024-02-14 00:09] LABS: Glucose - Point of Care 86 mg/dl (70-99)
--- NOTE | 2024-02-14 01:00 | PTCARENOTE ---
Patient received from ED via stretcher and was pulled to bed by staff. IV ABX infusing without difficulty. Patient was oriented to room and surroundings. HRR, Breath sounds are decreased throughout. Abdomen obese. Incontinent of urine,
purewick in place. Wound care as documented. Patient on Air bed for skin integrity.
[2024-02-14] MEDS: XOPENEX HFA 45 MCG INHALER 2 PUFF INH ×4 (01:33→19:39)
[2024-02-14 06:00] VITALS: BMI 38.5
[2024-02-14] MEDS: ADVAIR HFA 115/21 MCG INHALER 2 PUFF INH ×2 (07:43→19:39)
[2024-02-14 07:45] VITALS: BP 118/63
[2024-02-14 08:32] LABS: ALT (SGPT) 11 U/L (0-35); AST (SGOT) 19 U/L (14-36); Albumin 2.6 g/dl (3.5-5.0); Alkaline Phosphatase 117 U/L (38-126); Blood Urea Nitrogen 51 mg/dl (7-17); Calcium 8.1 mg/dl (8.4-10.2); Carbon Dioxide 31 mmol/L (22-30); Chloride 100 mmol/L (98-107); Estimated Creatinine Clearance 39 ml/min; Glucose 77 mg/dl (70-99); Potassium 3.7 mmol/L (3.5-5.1); Sodium 137 mmol/L (135-145); Total Bilirubin 0.5 mg/dl (0.2-1.3); Total Protein 6.1 g/dl (6.3-8.2); eGFR 41.57
[2024-02-14 08:40] LABS: Glucose - Point of Care 86 mg/dl (70-99)
[2024-02-14 08:59] LABS: Glycohemoglobin (HgbA1c) 5.6 % (4.0-5.6)
[2024-02-14] MEDS: LASIX 80 MG PO ×2 (09:29→15:36)
[2024-02-14] MEDS: NOVOLOG FLEXPEN-LOW RESISTANCE SC ×2 (09:29→12:27)
[2024-02-14] MEDS: KCL 20 MEQ PO (09:30)
[2024-02-14] MEDS: FEOSOL 325 MG PO (09:30)
[2024-02-14] MEDS: ASPIR LOW (ENTERIC COATED) 81 MG PO (09:30)
[2024-02-14] MEDS: THERAGRAN 1 TABLET PO (09:30)
[2024-02-14] MEDS: APRESOLINE 50 MG PO (09:30)
[2024-02-14] MEDS: TOPROL XL 25 MG PO (09:30)
[2024-02-14] MEDS: SORBITRATE 30 MG PO (09:30)
[2024-02-14] MEDS: LIPITOR 20 MG PO (09:30)
--- NOTE | 2024-02-14 11:16 | W.PN.HOSP.TC ---
Today's Communication/Plan
-
ID input
hold off on PT
IV abx
may need debridement
Assessment / Plan
Assessment / Plan
#Worsening right heel ulcer diabetic female
#Chronic lymphedema/chronic venous stasis
-Wound culture
-Recent nasal MRSA + 12/17/2023
-Consult wound care
-IV vancomycin, IV Zosyn
-Will check sed rate, CRP-elevated
-Foot xray noted.
-will ask ID for input as with ulcers and received abx IV not too long ago.
- may need debridement. Will ask podiatry
Acute on chronic bilateral buttocks healing stage II pressure ulcer present on admission-persistent since August 2023
Acute on chronic bilateral posterior thighs healing stage II ulcer present on admission persistent since August 2023
-Consult wound care
#DM 2/diabetic neuropathy
Accu-Cheks with SSI, check HgbA1c
-Patient no longer on Prandin
#Right lower extremity DVT October 2019
#Chronic CHF/Cardiomyopathy
#Chronic hypoxic respiratory failure on chronic 2 L nasal cannula
#history of multiple sepsis pneumonia most recent as 12/21/2023.,
I/O, daily weight
2D echo 12/22/2023: EF 45-50%, moderate LVH, moderate reduced LVSF, global hypokinesis, mildly dilated hypocontractile right ventricle, mild to moderate aortic stenosis peak mean gradients 36/21 mmHg mild/moderate TR pulm arterial pressure 51 mmHg,
IVC mildly dilated.
#CKD 3B
Creat 1.3 appears baseline
-Follow BMP
#Anemia of chronic disease
Hgb 10.8 baseline appears 10.5
#HTN�benign
Continue hydralazine 50 mg twice daily
#HLD
-continue atorvastatin 20 mg at bedtime
#Asthma-no acute exacerbation
#Sleep apnea
-Stopped using CPAP several years ago
#Morbid obesity due to excess calorie consumption�BMI 39.6
Weight loss recommended, 1800diet, fluid restrict
DVT prophylaxis
Subcu Lovenox
Full code
Anticipated Discharge: > 48 hours
Subjective/Interval History
-
Date of Service: February 14, 2024
States of worsening R heel wound and drainage at home
Objective Data
-
Labs:
Laboratory Results
02/14/24
06:26
WBC Pending
Hgb Pending
Hct Pending
Plt Count Pending
Sodium 137
Potassium 3.7
Chloride 100
Carbon Dioxide 31 H
BUN 51 H
Creatinine 1.3 H
Glucose 77
Calcium 8.1 L
Total Bilirubin 0.5
AST 19
ALT 11
Alkaline Phosphatase 117
Vital Signs:
Vital Signs
Temp Pulse Resp BP Pulse Ox
97.6 F 50 16 118/63 99
02/14/24 07:45 02/14/24 07:47 02/14/24 07:47 02/14/24 07:45 02/14/24 07:47
I&O
02/13/24 02/14/24 02/15/24
06:59 06:59 06:59
Output Total 440 / 440
Balance -440 / -440
Physical Exam
-
General: No Apparent Distress and Comfortable
HEENT: Normocephalic, Atraumatic, Moist Mucous Membranes, Anicteric and Oxygen
Respiratory: Non Labored Respirations
Cardiac: Regular Rhythm, S1/S2 and Murmur (2/6 systolic ejection)
Breast: Deferred by me
GI: Soft, Nontender, Nondistended and Normal Bowel Sounds
Genito-urinary: No Costovertebral Tender
Musculoskeletal: No Clubbing, No Cyanosis, Edema, Right Lower Extrem and Edema, Left Lower Extrem
Skin: Warm, Ulcers (R heel ), Decubitus Ulcers and IV Access / Catheter Site
Neuro: Awake, Alert, Oriented, AO x 3, No Motor Deficits and Nonfocal/Grossly Intact
Psych: Calm
Data Reviewed
-
Total Time Spent with Patient (in minutes): 56
--- NOTE | 2024-02-14 11:46 | CM ---
Met with pt at bedside
Reports she lives with her son and daughter in a 2 story home - set-up, 1 step to enter
Reports she needs assist with ADL's, daughter is care-taker. Ambulates with rolling walker
DME - rolling walker, cane, wheel chair
SNF - past has been to [facility] and [facility]
HH - Current with [facility]
PCP - Dr Miguel Fuchs
Pharm - [facility]
Discussed [facility]
Plan - anticipate home with [facility] with [facility] when medically stable
[2024-02-14 12:06] LABS: Glucose - Point of Care 143 mg/dl (70-99)
[2024-02-14 12:37] LABS: % Basophils 0.9 % (0-2); % Eosinophils 6.8 % (0-6); % Immature Granulocytes 0.1 % (0-0.5); % Monocytes 9.8 % (1.7-9.3); % Neutrophils 75.4 % (42.2-75.2); Absolute Basophils 0.1 10^3/uL (0-0.2); Absolute Eosinophils 0.5 10^3/uL (0-0.7); Absolute Lymphocytes 0.5 10^3/uL (1.2-3.4); Absolute Monocytes 0.7 10^3/uL (0.1-0.6); Absolute Neutrophils 5.1 10^3/uL (1.4-6.5); Hematocrit 30.1 % (37.0-47.0); Hemoglobin 9.8 g/dL (12.0-16.0); Mean Corp Hgb Conc. 32.6 g/dL (33.0-37.0); Mean Corpuscular Hgb 28.3 pg (27.0-31.0); Mean Platelet Volume 9.4 fL (7.4-10.4); Nucleated Red Blood Cells % 0 %; Platelet Count 264 10^3/uL (130-400); Red Blood Cell Count 3.46 10^6/uL (4.20-5.40); Red Cell Dist. Width 20.7 % (11.5-14.5); White Blood Cell Count 6.7 10^3/uL (4.8-10.8)
--- NOTE | 2024-02-14 12:57 | CON.ORTHO ---
Consultation
-
Date/Time Consultation Requested: 02/14/2024
Date/Time Consultation Performed: 02/14/2024
Requesting Provider: Dr. Pritchett
Performing Provider: Ana M Gonsalez PA-C, for Dr. Ronan Moreno
Reason for Consultation: Right heal wound
Consultation - Orthopedics
History
HPI: This is an 78 year old female who presented to ED after experiencing progressively worsening right heel pain and inability to ambulate. She reports heel pain for quite some time, but reports the ulcer has been present for several months.
She is established with Dr. Paiz and reports she underwent an in office debridement 6 weeks ago and f/u with them every 2 weeks. Yesterday, she had a sudden increase in pain and admits she cannot put any pressure on her right heel. She denies
any fevers, chills, or flu-like symptoms. She has a history of chronic lymphedema and DM2 which has also led to pressure ulcers of her buttocks and posterior thighs. She wears tubigrips and velcro compression stockings at baseline. Podiatry was
consulted in to discuss possible surgical debridement of her worsening right heel ulcer.
PMHx: CHF, HTN, DM2, chronic respiratory failure, CKD-3B, multiple sepsis pneumonia, chronic lymphedema, cardiomyopathy, asthma, HLD, MARIAMA.
PSHx: B/l cataracts, tonsillectomy, mass excision right leg - cancerous, breast mass excision - non cancerous.
Social history: denies tobacco use. Lives at home.
Family history: Non contributory.
Review of systems: all systems reviewed and negative except for those mentioned in HPI.
Allergies / Home Medications
Allergy/AdvReac Type Severity Reaction Status Date / Time
albuterol Allergy 'could not Verified 02/13/24 17:29
breath'
ceftriaxone [From Rocephin] Allergy Rash Verified 02/13/24 17:29
08/28/23
admission
cefuroxime [From Ceftin] Allergy facial Verified 02/13/24 17:29
droop,lip
swell/Margie
cefepime,
cefazolin
latex Allergy Rash Verified 02/13/24 17:29
levofloxacin [From Levaquin] Allergy facial Verified 02/13/24 17:29
droop,
rash,
numbness
lisinopril Allergy Shortness Verified 02/13/24 17:29
of Breath
naproxen Allergy Rash Verified 02/13/24 17:29
NSAIDS (Non-Steroidal Allergy Rash Verified 02/13/24 17:29
Anti-Inflamma
poison aroldo extract Allergy Unknown Verified 02/13/24 17:29
poison oak extract Allergy Unknown Verified 02/13/24 17:29
�Medication �Instructions �Recorded
Ultra Collagen + C 1 tab PO DAILY Skin Issues 12/15/23
acetaminophen 650 mg 1,300 mg PO BIDPRN PRN mild pain 12/15/23
tablet,extended release
ammonium lactate 12 % topical cream 1 applic topical BID B/L lower legs 12/15/23
aspirin 81 mg tablet,delayed 81 mg PO DAILY Blood Clot 12/15/23
release Prevention/Tx
atorvastatin 20 mg tablet 20 mg PO DAILY High Cholesterol 12/15/23
diclofenac sodium 1 applic topical Q6HPRN PRN B/L 12/15/23
knees
fluticasone propionate 115 2 puff inhalation R BID 12/15/23
mcg-salmeterol 21 mcg/actuation Lung/Breathing Issues
HFA inhaler (Advair HFA)
furosemide 80 mg tablet 80 mg PO BID@0800,1600 edema 12/15/23
hydralazine 50 mg tablet 50 mg PO BID Blood Pressure 12/15/23
isosorbide dinitrate 30 mg tablet 30 mg PO DAILY Heart 12/15/23
Disease/Condition
lidocaine 5 % topical patch 2 patch topical DAILY PRN B/L 12/15/23
shoulders
metolazone 2.5 mg tablet 2.5 mg PO DAILY@0730 Fluid 12/15/23
Retention/Swelling
metoprolol succinate 25 mg 25 mg PO DAILY Blood Pressure 12/15/23
tablet,extended release 24 hr
miconazole nitrate 2 % topical 1 applic topical BID under B/L 12/15/23
powder (Miconazorb AF) breasts/groin
potassium chloride 20 mEq 20 meq PO DAILY Electrolyte 12/15/23
tablet,extended release(part/cryst) Repletion
therapeutic multivitamin 1 tab PO DAILY Supplement 12/15/23
ferrous sulfate 325 mg (65 mg 325 mg PO DAILY 30 days #30 tabs 12/24/23
iron) tablet (FeroSul)
honey 80 % topical gel (MediHoney 1 applic topical Q OTHER DAY #44 mL 12/24/23
(honey))
levalbuterol tartrate 45 2 inh inhalation Q6H 02/13/24
mcg/actuation aerosol inhaler Lung/Breathing Issues
(Xopenex HFA)
Lactobac no.2-Bifidobac no.1-S. 2 cap PO DAILY Supplement 02/14/24
thermo 112.5 billion cell capsule
(Visbiome)
Vital Signs / Lab Results
Temp Pulse Resp BP Pulse Ox
97.6 F 50 16 118/63 99
02/14/24 07:45 02/14/24 07:47 02/14/24 07:47 02/14/24 07:45 02/14/24 07:47
02/14/24 06:26
02/14/24 06:26
Physical exam:
General: Obese female in NAD at rest. AAO x 3.
HEENT: AT/NC.
Lungs: non labored breathing, no audible wheezing.
Heart: RRR.
Right lower extremity: Pressure ulcer about entire width of right heel with no necrotic tissue noted, mild surrounding erythema. Additional pressure noted about lateral right leg proximal to the lateral malleolus with abundant granulation
tissue. Mild surrounding erythema. Lymphedema and chronic skin changes noted about b/l lower extremities.
Assessment / Plan
Assessment: Right heel pressure ulcer
Plan: Pictures of wounds taken and reviewed remotely with Dr. Moreno. At this point, our recommendation is to continue with local wound care and get an MRI of the right ankle to further evaluate the extent of soft tissue involvement. As of now,
there is no indication for emergent surgical intervention for debridement of the right heel wound. Continue with off loading of pressure on right heel and lower extremity. Continue pain regimen per medicine. Will continue to follow with results of
imaging to provide further recommendations going forward.
--- NOTE | 2024-02-14 14:26 | CON.ID ---
Consultation
-
Date/Time Consultation Requested: 02/14/24 11:14
Date/Time Consultation Performed: 02/14/24 14:26
Requesting Provider: Dr Pritchett
Performing Provider: Dr Lovell
Reason for Consultation: diabetic foot infection
Chief Complaint / Past History
Chief Complaint
right heel wound increased size, odor
History of Present Illness
Ms Middleton is an 78 year old female with chronic lymphedema/venous stasis dermatitis, DM2 controlled a1c 5.6, class II obesity who presents here due to progressive right heel wound with odor. Sleeps in a recliner because she cannot lift herself
out of hospital bed. Wears velcro compression stockings. She denies fever, chills, chest pain, palpitations, shortness of, cough, abdominal pain, nausea, vomit, diarrhea, urinary symptoms.
Since arrival here she has been afebrile, bp stable, wbc 6.7, hgb 9.8, plt 264, L shift is noted, cr 1.3 around her baseline of 1.1, na 137, crp 68, t bili 0.5, ast 19, alt 11d, alk pohs 117, 02/12 foot xray: no evidence of osteomyelitis, as of 12/20
she was colonized with MRSA has received doses of vancomycin and zosyn, ID is consulted for assistance with management
Past History
Additional Past Medical History:
Chronic hypoxic respiratory failure on home oxygen 1-2 L via NC
Chronic HFrEF (40-45%)
Frequent PVCs and bigeminy
Asthma
Chronic Lymphedema and chronic venous stasis changes
Hypertension
HLD
DM II
MARIAMA
Peripheral Neuropathy
History of DVT
Additional Past Surgical History:
B/l cataract surgery, Several D&Cs, miscarriage, Tonsilectomy, Cancerous mass removed from right leg 20 years ago, Breast mass removed noncancerous.
Allergy History:
albuterol Allergy (Verified 02/13/24 17:29)
'could not breath'
ceftriaxone [From Rocephin] Allergy (Verified 02/13/24 17:29)
Rash 08/28/23 admission
cefuroxime [From Ceftin] Allergy (Verified 02/13/24 17:29)
facial droop,lip swell/Margie cefepime, cefazolin
latex Allergy (Verified 02/13/24 17:29)
Rash
levofloxacin [From Levaquin] Allergy (Verified 02/13/24 17:29)
facial droop, rash, numbness
lisinopril Allergy (Verified 02/13/24 17:)
Shortness of Breath
naproxen Allergy (Verified 02/13/24:)
Rash
NSAIDS (Non-Steroidal Anti-Inflamma Allergy (Verified 02/13/24 17:)
Rash
poison aroldo extract Allergy (Verified 02/13/24 17:)
Unknown
poison oak extract Allergy (Verified 02/13/24 17:)
Unknown
Medications Reviewed: Yes
Social History
Tobacco: Non-Smoker
Alcohol: None
Drug: None
Family History
Family History: Not Pertinent
Review of Systems
Review of Systems
General: Negative Fever or Chills
All systems: All other systems were reviewed and were negative
Vital Signs
Temp Pulse Resp BP Pulse Ox
97.6 F 57 16 118/63 99
02/14/24 07:45 02/14/24 13:24 02/14/24 13:24 02/14/24 07:45 02/14/24 13:24
Physical Exam
Physical Exam
Constitutional: No Acute Distress
Cardiovascular: Regular Rate and S1/S2; Negative Murmur or Rub
Pulmonary: Clear and Symmetric; Negative Wheezes, Rales or Rhonchi
Gastrointestinal: Soft, Non Tender, Non Distended and Normal Bowel Sounds
Skin: Warm and Dry; Negative Rash or Jaundice
Wound: Other (right heel plantar ulcer - slough, no surrounding erythema, area is quite tender; venous ulcerations of the bilateral lower extremities without erythema, warmth, tenderness or drainage)
Lab / Diagnostic Study Results
02/14/24 06:26
02/14/24 06:26
Abs Immat Gran (auto) 0.0 10^3/uL (0-0.05) 02/14/24 06:26
Absolute Neuts (auto) 5.1 10^3/uL (1.4-6.5) 02/14/24 06:26
Absolute Lymphs (auto) 0.5 10^3/uL (1.2-3.4) L 02/14/24 06:26
Absolute Monos (auto) 0.7 10^3/uL (0.1-0.6) H 02/14/24 06:26
Absolute Basos (auto) 0.1 10^3/uL (0-0.2) 02/14/24 06:26
Immature Gran % 0.1 % (0-0.5) 02/14/24 06:26
Neutrophils % 75.4 % (42.2-75.2) H 02/14/24 06:26
Lymphocytes % 7.0 % (20.5-51.1) L 02/14/24 06:26
Monocytes % 9.8 % (1.7-9.3) H 02/14/24 06:26
Eosinophils % 6.8 % (0-6) H 02/14/24 06:26
Basophils % 0.9 % (0-2) 02/14/24 06:26
ESR 92 mm/hour (0-20) H 02/13/24 17:36
C-Reactive Protein 67.90 mg/L (0.0-10.00) H 02/13/24 18:59
Assessment / Plan
Pressure Ulcer of the Plantar Right Heel
Diabetic Foot Infection
Venous ulcerations of the bilateral lower extremities without evidence of infection
Well controlled DM2
Class II obesity
history of rash with ceftriaxone
- agree with MRI
- agree with pressure offloading boots and compression as tolerated
- ceftriaxone can have cross reactivity with ampicillin
- hold antibiotics for the moment to maximize any biopsy culture results
- follow clinically
Care Review
Plan reviewed with: Nurse (wound care)
[2024-02-14 15:00] VITALS: BP 129/67
[2024-02-14] MEDS: TYLENOL 650 MG PO (15:35)
[2024-02-14] MEDS: NOVOLOG FLEXPEN-LOW RESISTANCE 1 UNITS SC (17:10)
[2024-02-14] MEDS: LOVENOX 40 MG SC (17:10)
[2024-02-14 17:14] LABS: Glucose - Point of Care 196 mg/dl (70-99)
[2024-02-14 21:35] LABS: Glucose - Point of Care 135 mg/dl (70-99)
[2024-02-14 22:52] VITALS: BP 119/69
[2024-02-15] MEDS: TYLENOL 650 MG PO ×2 (00:10→11:22)
[2024-02-15] MEDS: XOPENEX HFA 45 MCG INHALER 2 PUFF INH ×2 (01:40→08:06)
[2024-02-15 06:00] VITALS: BMI 38.1
[2024-02-15 06:19] LABS: % Basophils 1.2 % (0-2); % Eosinophils 7.9 % (0-6); % Immature Granulocytes 0.5 % (0-0.5); % Lymphocytes 9.1 % (20.5-51.1); % Monocytes 9.4 % (1.7-9.3); % Neutrophils 71.9 % (42.2-75.2); Absolute Basophils 0.1 10^3/uL (0-0.2); Absolute Eosinophils 0.5 10^3/uL (0-0.7); Absolute Lymphocytes 0.6 10^3/uL (1.2-3.4); Absolute Monocytes 0.6 10^3/uL (0.1-0.6); Absolute Neutrophils 4.4 10^3/uL (1.4-6.5); Hematocrit 30.8 % (37.0-47.0); Hemoglobin 9.7 g/dL (12.0-16.0); Mean Corp Hgb Conc. 31.5 g/dL (33.0-37.0); Mean Corpuscular Hgb 27.2 pg (27.0-31.0); Mean Corpuscular Volume 86.5 fL (81.0-99.0); Mean Platelet Volume 9.2 fL (7.4-10.4); Nucleated Red Blood Cells % 0 %; Platelet Count 242 10^3/uL (130-400); Red Blood Cell Count 3.56 10^6/uL (4.20-5.40); Red Cell Dist. Width 20.1 % (11.5-14.5); White Blood Cell Count 6.1 10^3/uL (4.8-10.8)
[2024-02-15 06:32] LABS: ALT (SGPT) 11 U/L (0-35); AST (SGOT) 17 U/L (14-36); Albumin 2.6 g/dl (3.5-5.0); Alkaline Phosphatase 118 U/L (38-126); Blood Urea Nitrogen 50 mg/dl (7-17); Calcium 7.9 mg/dl (8.4-10.2); Carbon Dioxide 33 mmol/L (22-30); Chloride 99 mmol/L (98-107); Estimated Creatinine Clearance 36 ml/min; Glucose 87 mg/dl (70-99); Sodium 138 mmol/L (135-145); Total Bilirubin 0.5 mg/dl (0.2-1.3); Total Protein 6.2 g/dl (6.3-8.2); eGFR 38.03
[2024-02-15 07:44] LABS: Glucose - Point of Care 86 mg/dl (70-99)
[2024-02-15 07:49] VITALS: BP 129/61
[2024-02-15] MEDS: NOVOLOG FLEXPEN-LOW RESISTANCE SC (07:53)
[2024-02-15] MEDS: ADVAIR HFA 115/21 MCG INHALER 2 PUFF INH ×2 (08:02→20:08)
--- NOTE | 2024-02-15 09:18 | VNURNOTE ---
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 Resumption Referral placed in [facility]. Will continue to monitor hospital course.
--- NOTE | 2024-02-15 10:23 | WOUNDNOTE ---
L MEDIAL LOWER LEG
--- NOTE | 2024-02-15 10:23 | WOUNDNOTE ---
R LATERAL LOWER LEG
--- NOTE | 2024-02-15 10:34 | WOUNDNOTE ---
MONICA RN note: Patient admitted with infected R foot ulcer.
See H&P for complete history. From [facility]
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 PI on B/L buttocks and ischium.
Wound Location and type/assessment: Patient last seen 12/22/23 for same venous stasis ulcers LE's, and PI on buttocks/ischium/posterior thighs. legs with lymphedema, +Hemosiderosis,+Palpable pedal pulses. LE venous ultrasound and MRI pending.
TruVue lite offloading heel boots in use. Patient stated she wears velcro wraps for compression. L Heel is intact, R plantar heel with unstageable vs stage 3 PI mixed with diabetic ulcer.Since last admission wounds on buttocks and thighs much
improved. Bilateral buttocks and L posterior thigh with healing stage 3 pressure injuries. Abdominal/groin/breast skin folds with yeasty red skin, fungal powder in use. PT Reshma assisted.
Appetite: good.
Pressure redistribution devices in place:Versa care air. Offloading fiber filled boots to continue, offloading shoe per Podiatry recommendation when ambulating. Air chair cushion when sitting.
Plan: Local wound care with silicone foam on buttocks, L thigh, honey gel, Xeroform and silicone foam. Honey gel/Xeroform gauze/abd and spandage applied to legs and R heel, protective foam applied to L heel. Patient complained of burning sensation
to R heel, removed honey gel. Assessed wounds with Dr. Pritchett who approved of above wound care. Recommended Santyl for R plantar heel pending Podiatry decision post MRI. Lotrimin on order for dry skin on legs. Asked nurse Tarah to apply knee
high Shilo wraps both legs when returns from MRI. Repositioned onto R semi side lying position. Updated nurse, care plan to be updated and will follow as needed.
Recommend follow up at wound care center and Dr. Paiz as scheduled upon discharge.
--- NOTE | 2024-02-15 10:35 | WOUNDNOTE ---
MONICA RN NOTE ADDENDUM: Disregard note about using Lotrimin cream for legs, not in use, will order mineral oil.
--- NOTE | 2024-02-15 11:13 | W.PN.ID1 ---
Date of Service
Date of Service: February 15, 2024
Today's Communication
await formal MRI read
hold antibiotics for the moment
Assessment / Plan
Pressure Ulcer of the Plantar Right Heel
Diabetic Foot Infection
Venous ulcerations of the bilateral lower extremities without evidence of infection
Well controlled DM2
Class II obesity
history of rash with ceftriaxone
- await formal read of MRI
- agree with pressure offloading boots and compression as tolerated
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
- ceftriaxone can have cross reactivity with ampicillin
- hold antibiotics for the moment to maximize any biopsy culture results
- follow clinically
Chief Complaint
-: Other (pressure ulcer right heel)
Subjective / Review of Systems
afebrile
urinary incontinence noted
Vital Signs / Physical Exam
Vital Signs
Vital Signs
Temp Pulse Resp BP Pulse Ox
97.8 F 62 15 129/61 99
02/15/24 07:49 02/15/24 08:06 02/15/24 08:06 02/15/24 07:49 02/15/24 08:06
Physical Exam
Constitutional: No Acute Distress, Chronically Ill and Obese
Cardiovascular: Regular Rate and S1/S2; Negative Murmur or Rub
Pulmonary: Clear and Symmetric; Negative Wheezes or Rales
Gastrointestinal: Soft, Non Tender, Non Distended and Normal Bowel Sounds
Skin: Warm and Dry; Negative Rash or Jaundice
Wound: Other (deferred dressign take down - reviewed todays wound care photos -)
Objective Data
Lab Data
Lab Results
02/15/24 05:57
02/15/24 05:57
ESR 92 mm/hour (0-20) H 02/13/24 17:36
Estimated Creat Clear 36 ml/min 02/15/24 05:57
Total Bilirubin 0.5 mg/dl (0.2-1.3) 02/15/24 05:57
AST 17 U/L (14-36) 02/15/24 05:57
ALT 11 U/L (0-35) 02/15/24 05:57
Alkaline Phosphatase 118 U/L (38-126) 02/15/24 05:57
C-Reactive Protein 67.90 mg/L (0.0-10.00) H 02/13/24 18:59
Most recent labs reviewed.
ankle MRI done - formal radiology read pending - will await that report
[2024-02-15] MEDS: KCL 20 MEQ PO (11:19)
[2024-02-15] MEDS: ASPIR LOW (ENTERIC COATED) 81 MG PO (11:20)
[2024-02-15] MEDS: THERAGRAN 1 TABLET PO (11:20)
[2024-02-15] MEDS: FEOSOL 325 MG PO (11:20)
[2024-02-15] MEDS: SORBITRATE 30 MG PO (11:20)
[2024-02-15] MEDS: LASIX 80 MG PO ×2 (11:20→17:07)
[2024-02-15] MEDS: TOPROL XL 25 MG PO (11:20)
[2024-02-15] MEDS: LIPITOR 20 MG PO (11:22)
[2024-02-15] MEDS: DESENEX/MITRAZOL/ZEASORB 1 APPLIC TOPICAL (11:24)
--- NOTE | 2024-02-15 11:27 | W.PN.HOSP.TC ---
Today's Communication/Plan
-
MRI pending
abx held
podiatry recs
Assessment / Plan
Assessment / Plan
#Worsening right heel ulcer stage 3PI -poa
#Chronic lymphedema/chronic venous stasis
-Wound culture
-Recent nasal MRSA + 12/17/2023
-Consult wound care
-IV vancomycin, IV Zosyn stopped.
-Will check sed rate, CRP-elevated
-Foot xray noted.
-will ask ID for input as with ulcers and received abx IV not too long ago. Plan is too hold on IV abx. Appreciate ID recs
-MRI ankle pending. Dr. Moreno consulted.
Bilateral sacrum and L posterior thigh with 3 PI-POA
-Consulted wound care
#Hx of DM 2/diabetic neuropathy
Accu-Cheks with SSI,
-a1c 5.6
#Right lower extremity DVT October 2019
#Chronic CHF/Cardiomyopathy
#Chronic hypoxic respiratory failure on chronic 2 L nasal cannula
#history of multiple sepsis pneumonia most recent as 12/21/2023.,
I/O, daily weight
2D echo 12/22/2023: EF 45-50%, moderate LVH, moderate reduced LVSF, global hypokinesis, mildly dilated hypocontractile right ventricle, mild to moderate aortic stenosis peak mean gradients 36/21 mmHg mild/moderate TR pulm arterial pressure 51 mmHg,
IVC mildly dilated.
#CKD 3B
-Follow BMP. seems at baseline
#Anemia of chronic disease
Hgb 10.8 baseline appears 10.5
#HTN�benign
on lasix. Hydralazine has been held. Controlled 129/61
#HLD
-continue atorvastatin 20 mg at bedtime
#Asthma-no acute exacerbation
#Sleep apnea
-Stopped using CPAP several years ago
#Morbid obesity due to excess calorie consumption�BMI 39.6
Weight loss recommended, 1800diet, fluid restrict
DVT prophylaxis
Subcu Lovenox
Full code
Anticipated Discharge: > 48 hours
Subjective/Interval History
-
Date of Service: February 15, 2024
seen at bedside with wound care
Objective Data
-
Labs:
Laboratory Results
02/15/24
05:57
WBC 6.1
Hgb 9.7 L
Hct 30.8 L
Plt Count 242
Sodium 138
Potassium 4.0
Chloride 99
Carbon Dioxide 33 H
BUN 50 H
Creatinine 1.4 H
Glucose 87
Calcium 7.9 L
Total Bilirubin 0.5
AST 17
ALT 11
Alkaline Phosphatase 118
Vital Signs:
Vital Signs
Temp Pulse Resp BP Pulse Ox
97.8 F 62 15 129/61 99
02/15/24 07:49 02/15/24 11:20 02/15/24 08:06 02/15/24 11:20 02/15/24 08:06
I&O
02/14/24 02/15/24 02/16/24
06:59 06:59 06:59
Intake Total 820 / 820
Output Total 440 / 440 680 / 680
Balance -440 / -440 140 / 140
[2024-02-15 11:58] LABS: Glucose - Point of Care 167 mg/dl (70-99)
[2024-02-15] MEDS: NOVOLOG FLEXPEN-LOW RESISTANCE 1 UNITS SC ×2 (12:58→17:12)
[2024-02-15 15:24] VITALS: BP 118/64
[2024-02-15 15:28] VITALS: BMI 38.1
[2024-02-15 16:25] LABS: Glucose - Point of Care 189 mg/dl (70-99)
[2024-02-15] MEDS: LOVENOX 40 MG SC (17:12)
[2024-02-15 21:30] LABS: Glucose - Point of Care 196 mg/dl (70-99)
[2024-02-15 23:44] VITALS: BP 131/55
[2024-02-16] MEDS: DESENEX/MITRAZOL/ZEASORB 1 APPLIC TOPICAL ×3 (01:35→20:10)
[2024-02-16 06:00] VITALS: BMI 38.3
[2024-02-16 07:04] LABS: % Eosinophils 7.8 % (0-6); % Immature Granulocytes 0.4 % (0-0.5); % Lymphocytes 9.6 % (20.5-51.1); % Neutrophils 70.2 % (42.2-75.2); Absolute Basophils 0.1 10^3/uL (0-0.2); Absolute Eosinophils 0.5 10^3/uL (0-0.7); Absolute Lymphocytes 0.6 10^3/uL (1.2-3.4); Absolute Monocytes 0.7 10^3/uL (0.1-0.6); Absolute Neutrophils 4.7 10^3/uL (1.4-6.5); Hematocrit 30.8 % (37.0-47.0); Hemoglobin 9.7 g/dL (12.0-16.0); Mean Corp Hgb Conc. 31.5 g/dL (33.0-37.0); Mean Corpuscular Hgb 26.8 pg (27.0-31.0); Mean Corpuscular Volume 85.1 fL (81.0-99.0); Mean Platelet Volume 9.4 fL (7.4-10.4); Nucleated Red Blood Cells % 0 %; Platelet Count 284 10^3/uL (130-400); Red Blood Cell Count 3.62 10^6/uL (4.20-5.40); Red Cell Dist. Width 20.5 % (11.5-14.5); White Blood Cell Count 6.7 10^3/uL (4.8-10.8)
[2024-02-16 07:05] LABS: ALT (SGPT) 12 U/L (0-35); AST (SGOT) 19 U/L (14-36); Albumin 2.7 g/dl (3.5-5.0); Alkaline Phosphatase 120 U/L (38-126); Blood Urea Nitrogen 51 mg/dl (7-17); Calcium 7.9 mg/dl (8.4-10.2); Carbon Dioxide 32 mmol/L (22-30); Chloride 101 mmol/L (98-107); Estimated Creatinine Clearance 38 ml/min; Glucose 88 mg/dl (70-99); Potassium 4.5 mmol/L (3.5-5.1); Sodium 138 mmol/L (135-145); Total Bilirubin 0.4 mg/dl (0.2-1.3); Total Protein 6.3 g/dl (6.3-8.2); eGFR 41.57
[2024-02-16 07:29] VITALS: BP 143/72
--- NOTE | 2024-02-16 07:33 | W.PN.HOSP.TC ---
Addendum entered and electronically signed by Yehuda Pritchett MD 02/16/24 14:29:
moderate protein calorie malnutrition-chronic illness.
Original Note:
Today's Communication/Plan
-
await further podiatry recs
abx held
ID following
Assessment / Plan
Assessment / Plan
#Worsening right heel ulcer stage 3PI -poa
#Chronic lymphedema/chronic venous stasis
-Wound culture
-Recent nasal MRSA + 12/17/2023
-Consult wound care
-IV vancomycin, IV Zosyn stopped.
-Will check sed rate, CRP-elevated
-Foot xray noted.
-will ask ID for input as with ulcers and received abx IV not too long ago. Plan is too hold on IV abx. Appreciate ID recs
-MRI ankle resulted with possibility of osteo. 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 Paiz and Dr. Moreno (was initially consulted) for further recs.
-Off loading recommended per podiatry
Bilateral sacrum and L posterior thigh with 3 PI-POA
-Consulted wound care
#Hx of DM 2/diabetic neuropathy
Accu-Cheks with SSI,
-a1c 5.6
#Right lower extremity DVT October 2019
#Chronic CHF/Cardiomyopathy
#Chronic hypoxic respiratory failure on chronic 2 L nasal cannula
#history of multiple sepsis pneumonia most recent as 12/21/2023.,
I/O, daily weight
2D echo 12/22/2023: EF 45-50%, moderate LVH, moderate reduced LVSF, global hypokinesis, mildly dilated hypocontractile right ventricle, mild to moderate aortic stenosis peak mean gradients 36/21 mmHg mild/moderate TR pulm arterial pressure 51 mmHg,
IVC mildly dilated.
#CKD 3B
-Follow BMP. seems at baseline
#Anemia of chronic disease
Trend cbc. no acute need for transfusion.
#HTN�benign
on lasix. BP controlled.
#HLD
-continue atorvastatin 20 mg at bedtime
#Asthma-no acute exacerbation
#Sleep apnea
-Stopped using CPAP several years ago
#Morbid obesity due to excess calorie consumption�BMI 39.6
Weight loss recommended, 1800diet, fluid restrict
DVT prophylaxis
Subcu Lovenox
Full code
Anticipated Discharge: > 48 hours
Subjective/Interval History
-
Date of Service: February 16, 2024
Denies pain to R foot
Objective Data
-
Labs:
Laboratory Results
02/16/24
06:02
WBC 6.7
Hgb 9.7 L
Hct 30.8 L
Plt Count 284
Sodium 138
Potassium 4.5
Chloride 101
Carbon Dioxide 32 H
BUN 51 H
Creatinine 1.3 H
Glucose 88
Calcium 7.9 L
Total Bilirubin 0.4
AST 19
ALT 12
Alkaline Phosphatase 120
Vital Signs:
Vital Signs
Temp Pulse Resp BP Pulse Ox
97.7 F 69 17 143/72 96
02/16/24 07:29 02/16/24 07:29 02/16/24 07:29 02/16/24 07:29 02/16/24 07:29
I&O
02/15/24 02/16/24 02/17/24
06:59 06:59 06:59
Intake Total 820 / 820 480 / 480
Output Total 680 / 680 950 / 950
Balance 140 / 140 -470 / -470
Physical Exam
-
General: No Apparent Distress and Comfortable
HEENT: Normocephalic, Atraumatic, Moist Mucous Membranes, Anicteric and Oxygen
Respiratory: Non Labored Respirations
Cardiac: Regular Rhythm, S1/S2 and Murmur (2/6 systolic ejection)
Breast: Deferred by me
GI: Soft, Nontender, Nondistended and Normal Bowel Sounds
Genito-urinary: No Costovertebral Tender
Musculoskeletal: No Clubbing, No Cyanosis, Edema, Right Lower Extrem and Edema, Left Lower Extrem
Skin: Warm, Ulcers (R heel ), Decubitus Ulcers and IV Access / Catheter Site
Neuro: Awake, Alert, Oriented, AO x 3, No Motor Deficits and Nonfocal/Grossly Intact
Psych: Calm
[2024-02-16] MEDS: ADVAIR HFA 115/21 MCG INHALER 2 PUFF INH ×2 (07:34→20:16)
[2024-02-16 07:43] LABS: Glucose - Point of Care 105 mg/dl (70-99)
[2024-02-16] MEDS: NOVOLOG FLEXPEN-LOW RESISTANCE SC ×2 (08:47→12:38)
[2024-02-16] MEDS: ASPIR LOW (ENTERIC COATED) 81 MG PO (08:48)
[2024-02-16] MEDS: LASIX 80 MG PO ×2 (08:48→15:53)
[2024-02-16] MEDS: TOPROL XL 25 MG PO (08:49)
[2024-02-16] MEDS: THERAGRAN 1 TABLET PO (08:49)
[2024-02-16] MEDS: LIPITOR 20 MG PO (08:49)
[2024-02-16] MEDS: KCL PO ×2 (08:50→09:00)
[2024-02-16] MEDS: SORBITRATE 30 MG PO (08:51)
[2024-02-16] MEDS: FEOSOL 325 MG PO (08:51)
[2024-02-16] MEDS: HYDROPHOR 1 APPLIC TOPICAL (08:52)
[2024-02-16 12:32] LABS: Glucose - Point of Care 127 mg/dl (70-99)
--- NOTE | 2024-02-16 14:25 | PN.CDI ---
CDI
- -
CDI:
Physician Documentation Request
Admit Date: 02/15/24 09:26
Dear Doctor Shreyas,
Please review the following and provide your response in the progress notes.
Clinical Indicators:
Pt admitted with Diabetic foot infection
Documented per nutrition consult 02/14, ' CBW: 215 lbs BMI 38.1 obese range, 02/14. Pts weight previous admission listed as 241 lbs 12/22 reflective of an 11% weight loss in 2 months significant. With weight loss of > 7.5% in 6 months and < 75%
estimated needs > 1 month pt meets AND/ASPEN criteria for moderate protein calorie malnutrition Discussed with pts daughter ways to improve calorie and protein intakes at home. '
Based on the above information and your assessment, which of the following most accurately represents the patient's nutritional status?
Moderate Protein Calorie Malnutrition
Mild Protein Calorie Malnutrition
Other ( please specify)
[place] Criteria ([facility] Hospitalist 2017)
2 or more criteria must be present for either
non severe or severe malnutrition
Note that the criteria differs related to the
presence of an acute or chronic illness
Acute Illness Chronic Illness
Energy Intake Non Severe: <75% for >7 days Non Severe: <75% for >1 month
Severe: <50% for >5 days Severe: <75% for >1 month
Weight Loss Non Severe: 1-2% over 1 week Non Severe: 5% over 1 month
5% over 1 month 7.5% over 3 months
7.5% over 3 months 10% over 6 months
1 year N/A 20% over 1 year
Severe: >2% over 1 week Severe: >5% over 1 month
>5% over 1 month >7.5% over 3 months
>7.5% over 3 months >10% over 6 months
1 year N/A >20% over 1 year
Body Fat Non Severe: Mild Decrease Non Severe: Mild Loss
Severe: Moderate Decrease Severe: Severe Loss
Muscle Mass Non Severe: Mild Decrease Non Severe: Mild Loss
Severe: Moderate Decrease Severe: Severe Loss
Fluid Accumulation Non Severe: Mild Accumulation Non Severe: Mild Accumulation
Severe: Moderate to severe Severe: Moderate to severe
accumulation accumulation
Reduced Administrative Tech Strength Non Severe: N/A Non Severe: N/A
Severe: Measurably reduced Severe: Measurably reduced
Use of terms such as suspected, likely, concern for, or probable (associated with a specific diagnosis that is being evaluated, monitored, or treated as if it exists) are acceptable and can be coded in the inpatient setting, when documented at the
time of discharge.
Thank you,
Shruthi Walker RN
CDI Specialist
[place] [employer]
Please use your independent medical judgment in providing your response.
--- NOTE | 2024-02-16 14:36 | CM ---
Case management following for discharge planning
Chart reviewed
ID following
Wound care consult
Pending PT/OT recs
Case management will following d/c needs
Plan - anticipate home with HH vs snf when medically stable
[2024-02-16 15:10] VITALS: BP 138/68
[2024-02-16 15:26] VITALS: BP 126/59; PULSE 70; O2SAT 95
[2024-02-16] MEDS: TYLENOL 650 MG PO ×2 (15:53→22:17)
--- NOTE | 2024-02-16 16:39 | WOUNDNOTE ---
MONICA HERNANDEZ NOTE: No surgical intervention per Podiatry on R heel, MRI showed acute plantar fasciitis, no abscess. Updated wound care, added Dany and nurse Mary made aware. Will follow as needed.
[2024-02-16 16:46] LABS: Glucose - Point of Care 170 mg/dl (70-99)
[2024-02-16] MEDS: NOVOLOG FLEXPEN-LOW RESISTANCE 1 UNITS SC (17:25)
[2024-02-16] MEDS: LOVENOX 40 MG SC (17:38)
[2024-02-16 19:58] VITALS: BP 111/65
[2024-02-16 21:41] LABS: Glucose - Point of Care 134 mg/dl (70-99)
[2024-02-17] VITALS: BP 131/72
--- NOTE | 2024-02-17 03:46 | DOWNTIME ---
There was a [employer] Client Fire Support Specialist Downtime on 02/17/2024 from 0100 to 02/17/2024 at 0252. Downtime documentation of patient's care, including medication administrations, has been reconciled in the electronic record per guidelines. Refer to the
patient's paper chart under the miscellaneous tab to see printed paper medication records and downtime forms.
[2024-02-17 06:13] VITALS: BMI 38.6
[2024-02-17 07:30] VITALS: BP 133/70
[2024-02-17] MEDS: ADVAIR HFA 115/21 MCG INHALER 2 PUFF INH ×2 (07:43→19:53)
[2024-02-17] MEDS: XOPENEX HFA 45 MCG INHALER 2 PUFF INH (07:44)
[2024-02-17] MEDS: THERAGRAN 1 TABLET PO (08:06)
[2024-02-17] MEDS: KCL PO ×2 (08:06→08:10)
[2024-02-17] MEDS: ASPIR LOW (ENTERIC COATED) 81 MG PO (08:06)
[2024-02-17] MEDS: SORBITRATE 30 MG PO (08:06)
[2024-02-17] MEDS: LASIX 80 MG PO ×2 (08:06→15:28)
[2024-02-17] MEDS: LIPITOR 20 MG PO (08:07)
[2024-02-17] MEDS: NOVOLOG FLEXPEN-LOW RESISTANCE SC ×2 (08:07→11:51)
[2024-02-17] MEDS: SANTYL OINTMENT 1 APPLIC TOPICAL (08:07)
[2024-02-17] MEDS: TOPROL XL 25 MG PO (08:07)
[2024-02-17] MEDS: FEOSOL 325 MG PO (08:07)
[2024-02-17] MEDS: DESENEX/MITRAZOL/ZEASORB 1 APPLIC TOPICAL ×2 (08:08→22:34)
[2024-02-17] MEDS: HYDROPHOR 1 APPLIC TOPICAL (08:08)
[2024-02-17 08:12] LABS: Glucose - Point of Care 104 mg/dl (70-99)
[2024-02-17] MEDS: TYLENOL 650 MG PO ×2 (10:06→22:38)
--- NOTE | 2024-02-17 11:36 | WOUNDNOTE ---
WON RN NOTE: Followed up today with assist from nurse Kelli. Wounds appear shirt cleaner, no new pressure injuries noted. R plantar heel using Santyl starting today, no offloading shoe has been ordered yet from Podiatry. Spoke to Dr. Mceke at bedside to
make aware of wound care change and need of offloading shoe, so that PT can get her oob. Dr. Mckee confirmed he will speak to Podiatry and make them aware.
--- NOTE | 2024-02-17 11:40 | WOUNDNOTE ---
L MEDIAL LOWER LEG
--- NOTE | 2024-02-17 11:43 | WOUNDNOTE ---
R LATERAL LOWER LEG
[2024-02-17 11:49] LABS: Glucose - Point of Care 144 mg/dl (70-99)
--- NOTE | 2024-02-17 12:56 | W.PN.HOSP.TC ---
Today's Communication/Plan
-
Follow-up podiatry recommendations
Hopefully work with physical therapy
Assessment / Plan
Assessment / Plan
#Worsening right heel ulcer -- stage 3PI -- poa
#Chronic lymphedema/chronic venous stasis
#Severe plantar fasciitis
-Wound culture
-Recent nasal MRSA + 12/17/2023
-Consult wound care
-IV vancomycin, IV Zosyn stopped.
-Will check sed rate, CRP-elevated
-Foot xray noted.
-will ask ID for input as with ulcers and received abx IV not too long ago. Plan is too hold on IV abx. Appreciate ID recs
-MRI showing possibility of osteo, also with signs of severe plantar fasciitis
-Off loading recommended per podiatry, further recs appreciated
#Bilateral sacrum and L posterior thigh with 3 PI -- POA
-Consulted wound care
#Hx of DM 2/diabetic neuropathy
-Accu-Cheks with SSI
-a1c 5.6
#Right lower extremity DVT October 2019
-Not currently on anticoagulation
#Chronic HFmrEF/Cardiomyopathy
#Chronic hypoxic respiratory failure -- 2 L nasal cannula baseline
#Pulmonary hypertension
-Unclear etiology, possibly ischemic; GDMT includes beta-lucero, aspirin and statin; limited by renal function
-Currently on sequential nephron blockade with Lasix and daily metolazone 2.5 mg 30 minutes before Lasix
-Most recent echocardiogram in November showed LVEF 45 to 50% with moderate LVH, right ventricular dilation, moderate and TR
-Does have significant pulmonary hypertension from cardiomyopathy and MARIAMA, group 2 + 3 disease
-Appears euvolemic as of now
#CKD 3B
-Unclear etiology, likely associated with anemia; no acidemia or bone mineral changes
-Baseline creatinine near 1.3, has been stable near 1.3-1.4 over hospital stay
-Seems euvolemic at this time
#Anemia of chronic disease
-Possibly related to chronic kidney disease and other systemic illness
-No signs or symptoms of active bleeding, hemoglobin stable
#HTN�benign
-Not on any first-line agents, renal function likely contributing
-Home regimen includes Lasix, BP currently well-controlled
#HLD
-Home regimen includes moderate intensity statin
-Unclear history of ASCVD
#Asthma
-Maintained on short acting beta agonists as needed
-no signs of acute exacerbation
#Sleep apnea
-Stopped using CPAP several years ago
-Likely contributing to pulmonary hypertension
#Morbid obesity due to excess calorie consumption�BMI 39.6
-Weight loss recommended, 1800diet, fluid restrict
DVT prophylaxis: Subcutaneous Lovenox
Diet: 1800-calorie, fluid restriction
CODE STATUS: Full code
Anticipated Discharge: 24 - 48 hours
Subjective/Interval History
-
Date of Service: February 17, 2024
Seen and examined at bedside. No acute vents overnight.
She states that she still has pain in the right foot that is worst with loadbearing. Present at rest as well though not severe. Otherwise denies fevers or chills, chest pain, shortness of breath, GI symptoms, urinary issues, abnormal bleeding or
bruising, rashes.
Objective Data
-
Vital Signs:
Vital Signs
Temp Pulse Resp BP Pulse Ox
98.3 F 68 16 133/70 98
02/17/24 07:30 02/17/24 08:06 02/17/24 07:47 02/17/24 08:06 02/17/24 07:47
I&O
02/16/24 02/17/24 02/18/24
06:59 06:59 06:59
Intake Total 480 / 480 900 / 900
Output Total 950 / 950 600 / 600
Balance -470 / -470 300 / 300
Review of Systems
-
History Source: Patient
All other systems: Reviewed and negative
Physical Exam
-
General: No Apparent Distress, Comfortable and Morbidly Obese
HEENT: Normocephalic, Atraumatic and Moist Mucous Membranes
Respiratory: Clear to Auscultation and Non Labored Respirations; Negative Wheezes, Rales or Rhonchi
Cardiac: Regular Rhythm and S1/S2; Negative Murmur, Rub, JVD or Gallop
GI: Soft, Nontender, Nondistended and Normal Bowel Sounds
Musculoskeletal: No Clubbing, No Cyanosis and No Edema
Skin: Warm, Dry and Other (Bandages of the bilateral lower extremities)
Neuro: AO x 3, Nonfocal/Grossly Intact and Central Nerve's Intact
Data Reviewed
-
MRI: Report Reviewed by me and Discussed with Patient
[2024-02-17 15:26] VITALS: BP 121/59
--- NOTE | 2024-02-17 15:48 | CM ---
Case management following for discharge planning
Chart reviewed
ID following
Seen by Wound care
Pending PT/OT recs - awaiting weight-bearing status from Podiatry
Case management will following d/c needs
Plan - anticipate home with HH vs snf when medically stable
[2024-02-17 16:19] LABS: Glucose - Point of Care 175 mg/dl (70-99)
[2024-02-17] MEDS: LOVENOX 40 MG SC (17:10)
[2024-02-17] MEDS: NOVOLOG FLEXPEN-LOW RESISTANCE 1 UNITS SC (17:11)
--- NOTE | 2024-02-17 17:12 | W.PN.ID1 ---
Date of Service
Date of Service: February 17, 2024
Today's Communication
- would suggest holding antibiotics x2 weeks through 02/26 then obtain bone biopsy for pathology and culture - holding antibiotics would improve culture sensitivity
- await orthopedics input
- might consider placement if unable to attend follow up visits due to mobility issues
Assessment / Plan
Pressure Ulcer of the Plantar Right Heel
Diabetic Foot Infection
Venous ulcerations of the bilateral lower extremities without evidence of infection
Well controlled DM2
Class II obesity
history of rash with ceftriaxone
- MRI suspected osteomyelitis; swelling of the plantar fascia could also be underlying infection
- agree with pressure offloading boots and compression as tolerated
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
- would suggest holding antibiotics x2 weeks through 02/26 then obtain bone biopsy for pathology and culture - holding antibiotics would improve culture sensitivity
- await orthopedics input
- might consider placement if unable to attend follow up visits due to mobility issues
Chief Complaint
-: Other (pressure ulcer right heel)
Subjective / Review of Systems
afebrile
no overnight events
Vital Signs / Physical Exam
Vital Signs
Vital Signs
Temp Pulse Resp BP Pulse Ox
97.9 F 73 17 121/59 97
02/17/24 15:26 02/17/24 15:26 02/17/24 15:26 02/17/24 15:28 02/17/24 15:26
Physical Exam
Constitutional: No Acute Distress
Cardiovascular: Regular Rate
Pulmonary: Symmetric and Non Labored
Gastrointestinal: Non Distended
Wound: Other (dressing clean, dry, intact, in offloading boots)
Neurological: Awake
Objective Data
Lab Data
Lab Results
02/16/24 06:02
02/16/24 06:02
ESR 92 mm/hour (0-20) H 02/13/24 17:36
Estimated Creat Clear 38 ml/min 02/16/24 06:02
Total Bilirubin 0.4 mg/dl (0.2-1.3) 02/16/24 06:02
AST 19 U/L (14-36) 02/16/24 06:02
ALT 12 U/L (0-35) 02/16/24 06:02
Alkaline Phosphatase 120 U/L (38-126) 02/16/24 06:02
C-Reactive Protein 67.90 mg/L (0.0-10.00) H 02/13/24 18:59
Most recent labs reviewed.
[2024-02-17 21:34] LABS: Glucose - Point of Care 158 mg/dl (70-99)
[2024-02-17 23:03] VITALS: BP 130/63
[2024-02-18 05:57] VITALS: BMI 39.0
[2024-02-18 06:00] VITALS: BMI 39.0
[2024-02-18 06:44] LABS: % Basophils 0.9 % (0-2); % Eosinophils 7.6 % (0-6); % Immature Granulocytes 0.4 % (0-0.5); % Monocytes 9.6 % (1.7-9.3); % Neutrophils 71.5 % (42.2-75.2); Absolute Basophils 0.1 10^3/uL (0-0.2); Absolute Eosinophils 0.6 10^3/uL (0-0.7); Absolute Lymphocytes 0.8 10^3/uL (1.2-3.4); Absolute Monocytes 0.7 10^3/uL (0.1-0.6); Absolute Neutrophils 5.5 10^3/uL (1.4-6.5); Hemoglobin 10.4 g/dL (12.0-16.0); Mean Corp Hgb Conc. 31.5 g/dL (33.0-37.0); Mean Corpuscular Hgb 27.4 pg (27.0-31.0); Mean Corpuscular Volume 87.1 fL (81.0-99.0); Mean Platelet Volume 9.1 fL (7.4-10.4); Nucleated Red Blood Cells % 0 %; Platelet Count 280 10^3/uL (130-400); Red Blood Cell Count 3.79 10^6/uL (4.20-5.40); Red Cell Dist. Width 20.4 % (11.5-14.5); White Blood Cell Count 7.7 10^3/uL (4.8-10.8)
[2024-02-18 07:07] LABS: Blood Urea Nitrogen 43 mg/dl (7-17); Calcium 7.8 mg/dl (8.4-10.2); Carbon Dioxide 34 mmol/L (22-30); Chloride 97 mmol/L (98-107); Estimated Creatinine Clearance 39 ml/min; Glucose 82 mg/dl (70-99); Potassium 4.6 mmol/L (3.5-5.1); Sodium 141 mmol/L (135-145); eGFR 41.57
[2024-02-18 07:40] VITALS: BP 136/57
[2024-02-18 07:51] LABS: Glucose - Point of Care 91 mg/dl (70-99)
[2024-02-18] MEDS: NOVOLOG FLEXPEN-LOW RESISTANCE SC ×2 (07:52→11:30)
[2024-02-18] MEDS: ADVAIR HFA 115/21 MCG INHALER 2 PUFF INH ×2 (07:53→20:17)
[2024-02-18] MEDS: ASPIR LOW (ENTERIC COATED) 81 MG PO (08:14)
[2024-02-18] MEDS: TOPROL XL 25 MG PO (08:14)
--- NOTE | 2024-02-18 08:14 | W.PN.UPDATE ---
Update Note
Progress Note Update
Carmen continues to experience right heel discomfort despite her current wound care and offloading while in bed.
MRI of right ankle from shows evidence of
1. Ulcerations on the plantar and posterior heel without evidence of underlying abscess.
2. Severe subcutaneous edema in the plantar heel which could be infectious cellulitis or inflammatory edema.
3. Severe acute plantar fasciitis. Severe thickening of the proximal central cord of the plantar fascia, severe surrounding soft tissue edema, and severe bone marrow edema in the plantar calcaneus deep to the fascial attachment.
4. Possible mild acute osteomyelitis in the plantar calcaneus and plantar calcaneal and osteophyte deep to the plantar soft tissue ulcer, but this could also be inflammatory fasciitis.
I had a lengthy discussion with Carmen about recommendations going forward both nonoperative and possibly operative. At this point, our recommendation is to be nonweightbearing on the right lower extremity. She may toe-touch weight-bear for
transfers only. A consult was placed for a heel relief shoe from [facility]. She is frustrated by her lack of improvement with outpatient wound care. We did discuss that if any surgical intervention occurs, vascular will need to be involved. She
would like to think about options going forward and see how she does with PT with the NWB status. I will have Dr. Moreno see her later today to further discuss options.
[2024-02-18] MEDS: KCL 20 MEQ PO (08:15)
[2024-02-18] MEDS: SORBITRATE 30 MG PO (08:15)
[2024-02-18] MEDS: THERAGRAN 1 TABLET PO (08:15)
[2024-02-18] MEDS: SANTYL OINTMENT 1 APPLIC TOPICAL (08:15)
[2024-02-18] MEDS: LIPITOR 20 MG PO (08:15)
[2024-02-18] MEDS: FEOSOL 325 MG PO (08:15)
[2024-02-18] MEDS: LASIX 80 MG PO ×2 (08:15→16:47)
[2024-02-18] MEDS: DESENEX/MITRAZOL/ZEASORB 1 APPLIC TOPICAL ×2 (08:16→22:16)
[2024-02-18] MEDS: HYDROPHOR 1 APPLIC TOPICAL (08:17)
--- NOTE | 2024-02-18 09:50 | W.PN.UPDATE ---
Update Note
Progress Note Update
Seen and examined with FIRER LOW PRESSURE. Full consultation to follow. Briefly 78-year-old female with history of diabetes, morbid obesity. She is essentially bedridden, nonambulatory at this point. She denies any prior history of claudication. Asked to
evaluate regarding right heel ulceration/wound. Patient denies any history of lower extremity revascularization procedures. Denies any history of tobacco use. No history of coronary artery disease. On exam/she is awake and alert. Head is
normocephalic and atraumatic. Eyes are anicteric. Neck is soft without jugular venous distention. 2+ upper extremity radial pulses palpable bilaterally. Abdomen is soft, obese. Nondistended, nontender. Groins are extremely deep due to her
habitus. But she does have easily palpable 2+ femoral pulses bilaterally. Bilateral 2+ popliteal pulses palpable as well. On the right side once I milked out the edema she has a 1+/2+ PT pulse palpable. On the left side nonpalpable. Right heel
ulcer as noted in pictures. Reviewed.
Noninvasive studies reviewed. Right-sided TBI within normal limits 0.70. In addition no definitive stenosis identified (though there is a transition to monophasic waveforms in the SFA).
Plan/likely sufficient arterial perfusion for healing. TBI suggests adequate perfusion. Heel wounds unfortunately are at risk for not healing even with adequate flow due to watershed perfusion to the heel, and due to pressure, her bedridden status
etc. This certainly could present an eventual limb threatening problem. However I do not know that there is a role for revascularization currently. Would recommend definitive surgical management/debridement of the heel as necessary. If continued
nonhealing then we will pursue angiography. I otherwise would hesitate to be too aggressive in terms of angiography due to significant risks of bleeding/access site injury due to her habitus. In addition she has CKD stage III with GFR of 41.57.
Increased risk of renal insufficiency/contrast-induced nephropathy. Based on all this would recommend podiatric management of the heel/foot. I will see her in the office in 2 to 4 weeks for repeat evaluation. If not making any progress at that
time then we will pursue potential angiography for completeness sake.
--- NOTE | 2024-02-18 10:04 | CON.VAS ---
Consultation
Consultation Request
Performing Provider: Dick
Reason for Consultation: Nonhealing right heel wound
Medical History
-
Chief Complaint: Right heel pain
History of Present Illness:
78-year-old female with history of diabetes, morbid obesity. She is essentially bedridden, nonambulatory at this point. She denies any prior history of claudication. Asked to evaluate regarding right heel ulceration/wound. Patient states she
began with this wound about a month ago at a half-way due to pressure. Denies injury or trauma to the site. She states she has had lymphedema since she was in her 30s and has had issues with cellulitis. Patient denies wound healing issues in
the past. patient denies any history of lower extremity revascularization procedures. Denies any history of tobacco use. No history of coronary artery disease. On exam/she is awake and alert. Head is normocephalic and atraumatic. Eyes are
anicteric. Neck is soft without jugular venous distention. 2+ upper extremity radial pulses palpable bilaterally. Abdomen is soft, obese. Nondistended, nontender. Groins are extremely deep due to her habitus. But she does have easily palpable
2+ femoral pulses bilaterally. Bilateral 2+ popliteal pulses palpable as well. On the right side once I milked out the edema she has a 1+/2+ PT pulse palpable. On the left side nonpalpable. Right heel ulcer as noted in pictures. Reviewed.
Noninvasive studies reviewed. Right-sided TBI within normal limits 0.70. In addition no definitive stenosis identified (though there is a transition to monophasic waveforms in the SFA).
Past Medical History
Past Medical History: Other (Chronic hypoxic respiratory failure on home oxygen 1-2 L via NC, Chronic HFrEF (40-45%), Frequent PVCs and bigeminy, Asthma, Chronic Lymphedema and chronic venous stasis changes, Hypertension, HLD, DM II, MARIAMA, Peripheral
Neuropathy, History of DVT, Morbid Obesity, Medication and dietary non-adherenc)
Past Surgical History: Other (B/l cataract surgery, Several D&Cs, miscarriage, Tonsilectomy, Cancerous mass removed from right leg 20 years ago, Breast mass removed noncancerous)
Social History
Tobacco: Non-Smoker
Alcohol: None
Drug: None
Personal: Single
Living: With Family
Employment: Retired
Family History
Family History: Reviewed & Not Pertinent
Allergies / Home Medications
Allergy/AdvReac Type Severity Reaction Status Date / Time
albuterol Allergy 'could not Verified 02/13/24 17:29
breath'
ceftriaxone [From Rocephin] Allergy Rash Verified 02/13/24 17:29
08/28/23
admission
cefuroxime [From Ceftin] Allergy facial Verified 02/13/24 17:29
droop,lip
swell/Margie
cefepime,
cefazolin
latex Allergy Rash Verified 02/13/24 17:29
levofloxacin [From Levaquin] Allergy facial Verified 02/13/24 17:29
droop,
rash,
numbness
lisinopril Allergy Shortness Verified 02/13/24 17:29
of Breath
naproxen Allergy Rash Verified 02/13/24 17:29
NSAIDS (Non-Steroidal Allergy Rash Verified 02/13/24 17:29
Anti-Inflamma
poison aroldo extract Allergy Unknown Verified 02/13/24 17:29
poison oak extract Allergy Unknown Verified 02/13/24 17:29
�Medication �Instructions �Recorded �Confirmed �Type
Ultra Collagen + C 1 tab PO DAILY Skin Issues 12/15/23 02/13/24 History
acetaminophen 650 mg 1,300 mg PO BIDPRN PRN mild pain 12/15/23 02/13/24 History
tablet,extended release
ammonium lactate 12 % topical cream 1 applic topical BID B/L lower legs 12/15/23 02/13/24 History
aspirin 81 mg tablet,delayed 81 mg PO DAILY Blood Clot 12/15/23 02/13/24 History
release Prevention/Tx
atorvastatin 20 mg tablet 20 mg PO DAILY High Cholesterol 12/15/23 02/13/24 History
diclofenac sodium 1 applic topical Q6HPRN PRN B/L 12/15/23 02/13/24 History
knees
fluticasone propionate 115 2 puff inhalation R BID 12/15/23 02/13/24 History
mcg-salmeterol 21 mcg/actuation Lung/Breathing Issues
HFA inhaler (Advair HFA)
furosemide 80 mg tablet 80 mg PO BID@0800,1600 edema 12/15/23 02/13/24 History
isosorbide dinitrate 30 mg tablet 30 mg PO DAILY Heart 12/15/23 02/13/24 History
Disease/Condition
lidocaine 5 % topical patch 2 patch topical DAILY PRN B/L 12/15/23 02/13/24 History
shoulders
metolazone 2.5 mg tablet 2.5 mg PO DAILY@0730 Fluid 12/15/23 02/13/24 History
Retention/Swelling
metoprolol succinate 25 mg 25 mg PO DAILY Blood Pressure 12/15/23 02/13/24 History
tablet,extended release 24 hr
miconazole nitrate 2 % topical 1 applic topical BID under B/L 12/15/23 02/13/24 History
powder (Miconazorb AF) breasts/groin
potassium chloride 20 mEq 20 meq PO DAILY Electrolyte 12/15/23 02/13/24 History
tablet,extended release(part/cryst) Repletion
therapeutic multivitamin 1 tab PO DAILY Supplement 12/15/23 02/13/24 History
ferrous sulfate 325 mg (65 mg 325 mg PO DAILY 30 days #30 tabs 12/24/23 02/13/24 Rx
iron) tablet (FeroSul)
honey 80 % topical gel (MediHoney 1 applic topical Q OTHER DAY #44 mL 12/24/23 02/13/24 Rx
(honey))
levalbuterol tartrate 45 2 inh inhalation Q6H PRN 02/13/24 02/13/24 History
mcg/actuation aerosol inhaler SOB/WHEEZING
(Xopenex HFA)
Lactobac no.2-Bifidobac no.1-S. 2 cap PO DAILY Supplement 02/14/24 02/13/24 History
thermo 112.5 billion cell capsule
(Visbiome)
Review of Systems
-
History Source: Patient
All other systems: Negative unless noted
Constitutional: Reports No Symptoms
EENT: Reports No Symptoms
Respiratory: Reports No Symptoms
Cardiac: Reports No Symptoms
Vascular: Denies Leg Pain / Claudication
Abdomen/GI: Reports No Symptoms
: Reports No Symptoms
Musculoskeletal: Reports Edema
Skin: Reports Other (Nonhealing right ankle and heel wound)
Neurological: Reports No Symptoms
Endocrine: Reports No Symptoms
Physical Exam
Vital Signs
Temp Pulse Resp BP Pulse Ox
97.9 F 60 16 136/57 96
02/18/24 07:40 02/18/24 07:55 02/18/24 07:55 02/18/24 07:40 02/18/24 07:55
Lab Results
02/18/24 05:41
02/18/24 05:41
Physical Exam
General: No Apparent Distress
HEENT: Normocephalic and Atraumatic
Respiratory: Non Labored Respirations
Cardiac: Negative JVD
GI: Soft, Non Tender and Non Distended
Musculoskeletal: No Clubbing, No Cyanosis and Edema (Bilateral lower extremities)
Skin: Warm and Other (Seen wound images above)
Neuro: Awake, Alert and Oriented
Psych: Calm
Pulses: Bilateral Femoral: +2, Bilateral Popliteal: +2, Left Dorsalis Pedis: +1, Right Dorsalis Pedis: Doppler, Left Posterior Tibial: Doppler and Right Posterior Tibial: +1
Assessment / Plan
-
Plan/likely sufficient arterial perfusion for healing. TBI suggests adequate perfusion. Heel wounds unfortunately are at risk for not healing even with adequate flow due to watershed perfusion to the heel, and due to pressure, her bedridden status
etc. This certainly could present an eventual limb threatening problem. However I do not know that there is a role for revascularization currently. Would recommend definitive surgical management/debridement of the heel as necessary. If continued
nonhealing then we will pursue angiography. I otherwise would hesitate to be too aggressive in terms of angiography due to significant risks of bleeding/access site injury due to her habitus. In addition she has CKD stage III with GFR of 41.57.
Increased risk of renal insufficiency/contrast-induced nephropathy. Based on all this would recommend podiatric management of the heel/foot. I will see her in the office in 2 to 4 weeks for repeat evaluation. If not making any progress at that
time then we will pursue potential angiography for completeness sake.
Data Reviewed
-
Ultrasound: Discussed with Patient
Labs: Labs Reviewed by me
--- NOTE | 2024-02-18 11:16 | W.PN.HOSP.TC ---
Today's Communication/Plan
-
plan to begin offloading for foot
Physical therapy disposition planning
Bone biopsy in 2 weeks, off of antibiotics
Assessment / Plan
Assessment / Plan
#Worsening right heel ulcer -- stage 3PI -- poa
#Chronic lymphedema/chronic venous stasis
#Severe plantar fasciitis
-Initially with suspicion for cellulitis versus osteomyelitis, short course of antibiotics, have since been discontinued
-MRI showed evidence of severe plantar fasciitis without any pathognomonic findings of infection
-Patient has been clinically stable since antibiotics were discontinued, ID still following
-Podiatry recommending offloading, once in place will work with PT for disposition plan
-ID and podiatry planning for bone biopsy in 2 weeks, off of antibiotics to increase sensitivity
-Currently without fevers or leukocytosis
#Bilateral sacrum and L posterior thigh with 3 PI -- POA
-Consulted wound care
#Hx of DM 2/diabetic neuropathy
-Accu-Cheks with SSI
-a1c 5.6
#Right lower extremity DVT October 2019
-Not currently on anticoagulation
#Chronic HFmrEF/Cardiomyopathy
#Chronic hypoxic respiratory failure -- 2 L nasal cannula baseline
#Pulmonary hypertension
-Unclear etiology, possibly ischemic; GDMT includes beta-lucero, aspirin and statin; limited by renal function
-Currently on sequential nephron blockade with Lasix and daily metolazone 2.5 mg 30 minutes before Lasix
-Most recent echocardiogram in November showed LVEF 45 to 50% with moderate LVH, right ventricular dilation, moderate and TR
-Does have significant pulmonary hypertension from cardiomyopathy and MARIAMA, group 2 + 3 disease
-Appears euvolemic as of now
#CKD 3B
-Unclear etiology, likely associated with anemia; no acidemia or bone mineral changes
-Baseline creatinine near 1.3, has been stable near 1.3-1.4 over hospital stay
-Seems euvolemic at this time
#Anemia of chronic disease
-Possibly related to chronic kidney disease and other systemic illness
-No signs or symptoms of active bleeding, hemoglobin stable
#HTN�benign
-Not on any first-line agents, renal function likely contributing
-Home regimen includes Lasix, BP currently well-controlled
#HLD
-Home regimen includes moderate intensity statin
-Unclear history of ASCVD
#Asthma
-Maintained on short acting beta agonists as needed
-no signs of acute exacerbation
#Sleep apnea
-Stopped using CPAP several years ago
-Likely contributing to pulmonary hypertension
#Morbid obesity due to excess calorie consumption�BMI 39.6
-Weight loss recommended, 1800diet, fluid restrict
DVT prophylaxis: Subcutaneous Lovenox
Diet: 1800-calorie, fluid restriction
CODE STATUS: Full code
Anticipated Discharge: 24 - 48 hours
Subjective/Interval History
-
Date of Service: February 18, 2024
Seen and examined at the bedside. No acute events reported overnight.
Vascular surgery was at bedside as well and currently no plan for angiography here. Recommending for podiatry assessment and intervention if needed.
The patient denies any acute complaints this morning. Denies chest pain, shortness of breath, fevers or chills, nausea, vomiting, diarrhea, constipation, urinary issues, abnormal bleeding or bruising, new paresthesias or weakness.
Objective Data
-
Labs:
Laboratory Results
02/18/24
05:41
WBC 7.7
Hgb 10.4 L
Hct 33.0 L
Plt Count 280
Sodium 141
Potassium 4.6
Chloride 97 L
Carbon Dioxide 34 H
BUN 43 H
Creatinine 1.3 H
Glucose 82
Calcium 7.8 L
Vital Signs:
Vital Signs
Temp Pulse Resp BP Pulse Ox
97.9 F 60 16 136/57 95
02/18/24 07:40 02/18/24 07:55 02/18/24 07:55 02/18/24 07:40 02/18/24 10:50
I&O
02/17/24 02/18/24 02/19/24
06:59 06:59 06:59
Intake Total 900 / 900 1560 / 1560
Output Total 600 / 600 950 / 950
Balance 300 / 300 610 / 610
Review of Systems
-
History Source: Patient
All other systems: Reviewed and negative
Physical Exam
-
General: No Apparent Distress, Comfortable and Morbidly Obese
HEENT: Normocephalic, Atraumatic and Moist Mucous Membranes
Respiratory: Clear to Auscultation and Non Labored Respirations
Cardiac: Regular Rhythm, S1/S2 and Other (Reduced lower extremity pulses); Negative JVD
GI: Soft, Nontender, Nondistended and Normal Bowel Sounds
Musculoskeletal: No Clubbing, No Cyanosis and No Edema
Skin: Warm and Dry; Negative Rash
Neuro: AO x 3, Nonfocal/Grossly Intact and Central Nerve's Intact
Data Reviewed
-
Labs: Labs Reviewed by me and Discussed with Patient
[2024-02-18 11:26] LABS: Glucose - Point of Care 144 mg/dl (70-99)
[2024-02-18 12:00] VITALS: BP 130/59; PULSE 60; O2SAT 94
[2024-02-18 12:01] VITALS: BP 130/59; O2SAT 94
[2024-02-18] MEDS: TYLENOL 650 MG PO (12:28)
--- NOTE | 2024-02-18 14:33 | CM ---
Case management following for discharge planning
Chart reviewed. Spoke with pt at bedside
Discussed SNF at discharge vs home with HH
Pt requesting [facility] as only option for SNF - referral sent in [facility]
Per pt if she is unable to go to [facility] prefers to go home with services
Plan - anticipate SNF when medically stable
[2024-02-18 15:23] VITALS: BP 128/61
[2024-02-18 16:30] LABS: Glucose - Point of Care 553 mg/dl (70-99)
[2024-02-18 16:32] LABS: Glucose - Point of Care 192 mg/dl (70-99)
[2024-02-18] MEDS: LOVENOX 40 MG SC (17:45)
[2024-02-18] MEDS: NOVOLOG FLEXPEN-LOW RESISTANCE 1 UNITS SC (17:45)
--- NOTE | 2024-02-18 18:22 | W.PN.UPDATE ---
Update Note
Progress Note Update
Patient seen at bedside
-Wound stable
-Agree with vascular, no acute debridement needed at this time
-Continue local wound care
-Strict offloading right heel, heel relief shoe if out of bed, MELANIA boots in bed, NWB RLE toe touch for transfers
-Call if wounds worsen
[2024-02-18 21:04] LABS: Glucose - Point of Care 212 mg/dl (70-99)
[2024-02-18 23:51] VITALS: BP 140/68
[2024-02-19 06:00] VITALS: BMI 38.8
[2024-02-19 08:01] VITALS: BP 143/78
[2024-02-19] MEDS: ADVAIR HFA 115/21 MCG INHALER 2 PUFF INH ×2 (08:12→20:13)
[2024-02-19 08:17] LABS: Glucose - Point of Care 87 mg/dl (70-99)
[2024-02-19 08:43] LABS: % Basophils 0.9 % (0-2); % Eosinophils 10.6 % (0-6); % Immature Granulocytes 0.5 % (0-0.5); % Lymphocytes 9.9 % (20.5-51.1); % Monocytes 9.6 % (1.7-9.3); % Neutrophils 68.5 % (42.2-75.2); Absolute Basophils 0.1 10^3/uL (0-0.2); Absolute Eosinophils 0.8 10^3/uL (0-0.7); Absolute Lymphocytes 0.8 10^3/uL (1.2-3.4); Absolute Monocytes 0.7 10^3/uL (0.1-0.6); Absolute Neutrophils 5.2 10^3/uL (1.4-6.5); Hematocrit 33.2 % (37.0-47.0); Hemoglobin 10.2 g/dL (12.0-16.0); Mean Corp Hgb Conc. 30.7 g/dL (33.0-37.0); Mean Corpuscular Hgb 26.3 pg (27.0-31.0); Mean Corpuscular Volume 85.6 fL (81.0-99.0); Mean Platelet Volume 9.1 fL (7.4-10.4); Nucleated Red Blood Cells % 0 %; Platelet Count 327 10^3/uL (130-400); Red Blood Cell Count 3.88 10^6/uL (4.20-5.40); Red Cell Dist. Width 21.2 % (11.5-14.5); White Blood Cell Count 7.6 10^3/uL (4.8-10.8)
[2024-02-19 09:28] LABS: Calcium 8.1 mg/dl (8.4-10.2); Carbon Dioxide 35 mmol/L (22-30); Chloride 99 mmol/L (98-107); Glucose 81 mg/dl (70-99); Potassium 4.6 mmol/L (3.5-5.1); Sodium 142 mmol/L (135-145)
[2024-02-19 09:37] LABS: Blood Urea Nitrogen 41 mg/dl (7-17); Estimated Creatinine Clearance 42 ml/min; eGFR 45.76
[2024-02-19] MEDS: NOVOLOG FLEXPEN-LOW RESISTANCE SC ×3 (09:43→16:58)
[2024-02-19] MEDS: KCL PO ×2 (10:07→10:13)
[2024-02-19] MEDS: SORBITRATE 30 MG PO (10:07)
[2024-02-19] MEDS: FEOSOL 325 MG PO (10:07)
[2024-02-19] MEDS: ASPIR LOW (ENTERIC COATED) 81 MG PO (10:07)
[2024-02-19] MEDS: TOPROL XL 25 MG PO (10:07)
[2024-02-19] MEDS: THERAGRAN 1 TABLET PO (10:07)
[2024-02-19] MEDS: LASIX 80 MG PO ×2 (10:07→16:05)
[2024-02-19] MEDS: LIPITOR 20 MG PO (10:08)
[2024-02-19] MEDS: SANTYL OINTMENT 1 APPLIC TOPICAL (10:09)
[2024-02-19] MEDS: DESENEX/MITRAZOL/ZEASORB 1 APPLIC TOPICAL ×2 (10:09→20:01)
[2024-02-19] MEDS: HYDROPHOR 1 APPLIC TOPICAL (10:10)
--- NOTE | 2024-02-19 10:27 | W.PN.HOSP.TC ---
Today's Communication/Plan
-
Plan for discharge to SNF versus home with home care
Plan for bone biopsy in 2 weeks as outpatient
Assessment / Plan
Assessment / Plan
#Worsening right heel ulcer -- stage 3PI -- poa
#Chronic lymphedema/chronic venous stasis
#Severe plantar fasciitis
-Initially with suspicion for cellulitis versus osteomyelitis, short course of antibiotics, have since been discontinued
-MRI showed evidence of severe plantar fasciitis without any pathognomonic findings of infection
-Patient has been clinically stable since antibiotics were discontinued, ID still following
-Podiatry recommending offloading, once in place will work with PT for disposition plan
-ID and podiatry planning for bone biopsy in 2 weeks, off of antibiotics to increase sensitivity
-Currently without fevers or leukocytosis
#Bilateral sacrum and L posterior thigh with 3 PI -- POA
-Consulted wound care
#Hx of DM 2/diabetic neuropathy
-Accu-Cheks with SSI
-a1c 5.6
#Right lower extremity DVT October 2019
-Not currently on anticoagulation
#Chronic HFmrEF/Cardiomyopathy
#Chronic hypoxic respiratory failure -- 2 L nasal cannula baseline
#Pulmonary hypertension
-Unclear etiology, possibly ischemic; GDMT includes beta-lucero, aspirin and statin; limited by renal function
-Currently on sequential nephron blockade with Lasix and daily metolazone 2.5 mg 30 minutes before Lasix
-Most recent echocardiogram in November showed LVEF 45 to 50% with moderate LVH, right ventricular dilation, moderate and TR
-Does have significant pulmonary hypertension from cardiomyopathy and MARIAMA, group 2 + 3 disease
-Appears euvolemic as of now
#CKD 3B
-Unclear etiology, likely associated with anemia; no acidemia or bone mineral changes
-Baseline creatinine near 1.3, has been stable near 1.3-1.4 over hospital stay
-Seems euvolemic at this time
#Anemia of chronic disease
-Possibly related to chronic kidney disease and other systemic illness
-No signs or symptoms of active bleeding, hemoglobin stable
#HTN�benign
-Not on any first-line agents, renal function likely contributing
-Home regimen includes Lasix, BP currently well-controlled
#HLD
-Home regimen includes moderate intensity statin
-Unclear history of ASCVD
#Asthma
-Maintained on short acting beta agonists as needed
-no signs of acute exacerbation
#Sleep apnea
-Stopped using CPAP several years ago
-Likely contributing to pulmonary hypertension
#Morbid obesity due to excess calorie consumption�BMI 39.6
-Weight loss recommended, 1800diet, fluid restrict
DVT prophylaxis: Subcutaneous Lovenox
Diet: 1800-calorie, fluid restriction
CODE STATUS: Full code
Patient is medically stable for discharge. Pending placement to SNF versus home with home care
Anticipated Discharge: Within 24 hours
Subjective/Interval History
-
Date of Service: February 19, 2024
Seen and examined at the bedside. No acute events reported overnight. Current plan to monitor off antibiotics and perform bone marrow biopsy as outpatient. Planning for discharge to SNF (patient prefers [facility]) versus home with home PT.
She denies any chest pain, shortness of breath, fevers or chills, nausea, vomiting, diarrhea, urinary issues, bleeding or bruising, paresthesias or weakness.
Objective Data
-
Labs:
Laboratory Results
02/19/24
07:48
WBC 7.6
Hgb 10.2 L
Hct 33.2 L
Plt Count 327
Sodium 142
Potassium 4.6
Chloride 99
Carbon Dioxide 35 H
BUN 41 H
Creatinine 1.2 H
Glucose 81
Calcium 8.1 L
Vital Signs:
Vital Signs
Temp Pulse Resp BP Pulse Ox
98 F 69 16 143/78 94
02/19/24 08:01 02/19/24 08:16 02/19/24 08:16 02/19/24 08:01 02/19/24 08:16
I&O
02/18/24 02/19/24 02/20/24
06:59 06:59 06:59
Intake Total 1560 / 1560 1380 / 1380
Output Total 950 / 950 1100 / 1100
Balance 610 / 610 280 / 280
Review of Systems
-
History Source: Patient
All other systems: Reviewed and negative
Physical Exam
-
General: No Apparent Distress, Comfortable and Obese
HEENT: Normocephalic, Atraumatic and Moist Mucous Membranes
Respiratory: Clear to Auscultation and Non Labored Respirations; Negative Wheezes, Rales or Rhonchi
Cardiac: Regular Rhythm and S1/S2; Negative JVD
GI: Soft, Nontender, Nondistended and Normal Bowel Sounds
Musculoskeletal: No Clubbing, No Cyanosis and No Edema
Skin: Warm, Dry and Ulcers (Right heel, currently bandaged); Negative Rash
Neuro: AO x 3, Nonfocal/Grossly Intact and Central Nerve's Intact
Data Reviewed
-
Labs: Labs Reviewed by me and Discussed with Patient
--- NOTE | 2024-02-19 11:31 | CM ---
Addendum entered by Heike Martinez 02/19/24 12:51:
Plan - anticipate SNF when bed obtained/medically ready
Addendum entered by Heike Martinez 02/19/24 12:26:
Called and left message for pts daughter David to discuss discharge planning. Left call back number
Original Note:
Case management following for discharge planning
Discussed discharge plan
Per pt only wants to go to [facility] or home with VN/family
[facility] does not have bed - requested other options
Pt requested [facility] - called and spoke with Graciela - no beds today
[2024-02-19 11:58] LABS: Glucose - Point of Care 113 mg/dl (70-99)
--- NOTE | 2024-02-19 14:45 | W.PN.ID1 ---
Date of Service
Date of Service: February 19, 2024
Today's Communication
bone biopsy in 2 weeks
follow up in clinic
Assessment / Plan
Pressure Ulcer of the Plantar Right Heel
Diabetic Foot Infection
Venous ulcerations of the bilateral lower extremities without evidence of infection
Well controlled DM2
Class II obesity
history of rash with ceftriaxone
- MRI suspected osteomyelitis; swelling of the plantar fascia could also be underlying infection - these are chronic findings and nonurent
- agree with pressure offloading boots and compression as tolerated
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
- would suggest holding antibiotics x2 weeks through 02/26 then obtain bone biopsy for pathology and culture - holding antibiotics would improve culture sensitivity
- appreciate orthopedics input
- might consider placement if unable to attend follow up visits due to mobility issues
- can follow up with me in 3-4 weeks
Chief Complaint
-: Other (pressure ulcer right heel)
Subjective / Review of Systems
remains afebrile
no events overnight
Vital Signs / Physical Exam
Vital Signs
Vital Signs
Temp Pulse Resp BP Pulse Ox
98 F 69 16 143/78 94
02/19/24 08:01 02/19/24 08:16 02/19/24 08:16 02/19/24 08:01 02/19/24 08:16
Physical Exam
Constitutional: No Acute Distress
Cardiovascular: Regular Rate
Pulmonary: Symmetric and Non Labored
Gastrointestinal: Non Distended
Skin: Warm and Dry; Negative Rash or Jaundice
Wound: Other (dressings clean, dry, intact)
Objective Data
Lab Data
Lab Results
02/19/24 07:48
02/19/24 07:48
ESR 92 mm/hour (0-20) H 02/13/24 17:36
Estimated Creat Clear 42 ml/min 02/19/24 07:48
Total Bilirubin 0.4 mg/dl (0.2-1.3) 02/16/24 06:02
AST 19 U/L (14-36) 02/16/24 06:02
ALT 12 U/L (0-35) 02/16/24 06:02
Alkaline Phosphatase 120 U/L (38-126) 02/16/24 06:02
C-Reactive Protein 67.90 mg/L (0.0-10.00) H 02/13/24 18:59
Most recent labs reviewed.
[2024-02-19 15:59] VITALS: BP 128/61
[2024-02-19 16:58] LABS: Glucose - Point of Care 149 mg/dl (70-99)
[2024-02-19] MEDS: LOVENOX 40 MG SC (17:06)
[2024-02-19 21:20] LABS: Glucose - Point of Care 152 mg/dl (70-99)
[2024-02-19 23:20] VITALS: BP 141/70
[2024-02-20 00:09] VITALS: BP 141/70
[2024-02-20 06:00] VITALS: BMI 38.3
[2024-02-20 07:00] VITALS: BP 130/73
[2024-02-20] MEDS: ADVAIR HFA 115/21 MCG INHALER 2 PUFF INH ×2 (07:15→20:15)
[2024-02-20] MEDS: FEOSOL 325 MG PO (07:50)
[2024-02-20] MEDS: LIPITOR 20 MG PO (07:50)
[2024-02-20] MEDS: LASIX 80 MG PO ×2 (07:50→15:38)
[2024-02-20] MEDS: ASPIR LOW (ENTERIC COATED) 81 MG PO (07:50)
[2024-02-20] MEDS: NOVOLOG FLEXPEN-LOW RESISTANCE SC ×3 (07:50→16:21)
[2024-02-20 07:51] LABS: Glucose - Point of Care 106 mg/dl (70-99)
[2024-02-20] MEDS: SORBITRATE 30 MG PO (07:51)
[2024-02-20] MEDS: THERAGRAN 1 TABLET PO (07:51)
[2024-02-20] MEDS: KCL 20 MEQ PO (07:51)
[2024-02-20] MEDS: TOPROL XL 25 MG PO (07:51)
[2024-02-20] MEDS: SANTYL OINTMENT 1 APPLIC TOPICAL (07:51)
[2024-02-20] MEDS: HYDROPHOR 1 APPLIC TOPICAL (07:52)
[2024-02-20] MEDS: ZAROXOLYN 2.5 MG PO (08:01)
[2024-02-20] MEDS: DESENEX/MITRAZOL/ZEASORB 1 APPLIC TOPICAL ×2 (08:01→19:55)
[2024-02-20] MEDS: TYLENOL 650 MG PO (10:10)
[2024-02-20 11:39] LABS: Glucose - Point of Care 139 mg/dl (70-99)
--- NOTE | 2024-02-20 11:49 | W.PN.HOSP.TC ---
Today's Communication/Plan
-
Discharge to SNF when bed available
Assessment / Plan
Assessment / Plan
#Worsening right heel ulcer -- stage 3PI -- poa
#Chronic lymphedema/chronic venous stasis
#Severe plantar fasciitis
-Initially with suspicion for cellulitis versus osteomyelitis, short course of antibiotics, have since been discontinued
-MRI showed evidence of severe plantar fasciitis without any pathognomonic findings of infection
-Patient has been clinically stable since antibiotics were discontinued, ID still following
-Podiatry recommending offloading, once in place will work with PT for disposition plan
-ID and podiatry planning for bone biopsy in 2 weeks, off of antibiotics to increase sensitivity
-Currently without fevers or leukocytosis
#Bilateral sacrum and L posterior thigh with 3 PI -- POA
-Consulted wound care
#Hx of DM 2/diabetic neuropathy
-Accu-Cheks with SSI
-a1c 5.6
#Right lower extremity DVT October 2019
-Not currently on anticoagulation
#Chronic HFmrEF/Cardiomyopathy
#Chronic hypoxic respiratory failure -- 2 L nasal cannula baseline
#Pulmonary hypertension
-Unclear etiology, possibly ischemic; GDMT includes beta-lucero, aspirin and statin; limited by renal function
-Currently on sequential nephron blockade with Lasix and daily metolazone 2.5 mg 30 minutes before Lasix
-Most recent echocardiogram in November showed LVEF 45 to 50% with moderate LVH, right ventricular dilation, moderate and TR
-Does have significant pulmonary hypertension from cardiomyopathy and MARIAMA, group 2 + 3 disease
-Appears euvolemic as of now
#CKD 3B
-Unclear etiology, likely associated with anemia; no acidemia or bone mineral changes
-Baseline creatinine near 1.3, has been stable near 1.3-1.4 over hospital stay
-Seems euvolemic at this time
#Anemia of chronic disease
-Possibly related to chronic kidney disease and other systemic illness
-No signs or symptoms of active bleeding, hemoglobin stable
#HTN�benign
-Not on any first-line agents, renal function likely contributing
-Home regimen includes Lasix, BP currently well-controlled
#HLD
-Home regimen includes moderate intensity statin
-Unclear history of ASCVD
#Asthma
-Maintained on short acting beta agonists as needed
-no signs of acute exacerbation
#Sleep apnea
-Stopped using CPAP several years ago
-Likely contributing to pulmonary hypertension
#Morbid obesity due to excess calorie consumption�BMI 39.6
-Weight loss recommended, 1800diet, fluid restrict
DVT prophylaxis: Subcutaneous Lovenox
Diet: 1800-calorie, fluid restriction
CODE STATUS: Full code
Patient is medically stable for discharge. Pending placement to SNF
Anticipated Discharge: Today
Subjective/Interval History
-
Date of Service: February 20, 2024
Seen and examined at the bedside. No acute events overnight. She denies any complaints today, states her skin also related pain is improved. Denies any cardiopulmonary, gastroenterologic, urinary symptoms, denies fevers or chills. She did have a
mild, transient nosebleed related to oxygen use chronically. Will monitor and consider humidification if needed
Medically stable for discharge, pending SNF placement for physical rehabilitation
Objective Data
-
Vital Signs:
Vital Signs
Temp Pulse Resp BP Pulse Ox
97.8 F 79 16 130/63 96
02/20/24 07:00 02/20/24 07:50 02/20/24 07:16 02/20/24 07:50 02/20/24 07:16
I&O
02/19/24 02/20/24 02/21/24
06:59 06:59 06:59
Intake Total 1380 / 1380 1620 / 1620
Output Total 1100 / 1100 1400 / 1400
Balance 280 / 280 220 / 220
Review of Systems
-
History Source: Patient
All other systems: Reviewed and negative
Physical Exam
-
General: No Apparent Distress, Comfortable and Obese
HEENT: Normocephalic, Atraumatic and Moist Mucous Membranes
Respiratory: Clear to Auscultation and Non Labored Respirations; Negative Wheezes, Rales or Rhonchi
Cardiac: Regular Rhythm, S1/S2 and Murmur; Negative Rub, JVD or Gallop
GI: Soft, Nontender, Nondistended and Normal Bowel Sounds
Musculoskeletal: No Clubbing, No Cyanosis, No Edema and Other
Skin: Warm, Dry and Ulcers (Right heel ulcer bandaged); Negative Rash
Neuro: AO x 3, Nonfocal/Grossly Intact and Central Nerve's Intact
[2024-02-20 15:00] VITALS: BP 132/72
[2024-02-20 16:02] LABS: Glucose - Point of Care 136 mg/dl (70-99)
[2024-02-20] MEDS: LOVENOX 40 MG SC (17:17)
[2024-02-20 21:17] LABS: Glucose - Point of Care 129 mg/dl (70-99)
[2024-02-20 23:07] VITALS: BP 131/67
[2024-02-21 06:00] VITALS: BMI 38.9
[2024-02-21] MEDS: NOVOLOG FLEXPEN-LOW RESISTANCE SC (07:23)
[2024-02-21 07:25] VITALS: BP 126/70
[2024-02-21] MEDS: ADVAIR HFA 115/21 MCG INHALER 2 PUFF INH ×2 (07:27→19:29)
[2024-02-21] MEDS: ASPIR LOW (ENTERIC COATED) 81 MG PO (07:31)
[2024-02-21] MEDS: THERAGRAN 1 TABLET PO (07:31)
[2024-02-21] MEDS: LASIX 80 MG PO ×2 (07:31→15:50)
[2024-02-21] MEDS: FEOSOL 325 MG PO (07:31)
[2024-02-21] MEDS: LIPITOR 20 MG PO (07:31)
[2024-02-21] MEDS: TOPROL XL 25 MG PO (07:31)
[2024-02-21] MEDS: SORBITRATE 30 MG PO (07:31)
[2024-02-21] MEDS: KCL PO (07:32)
[2024-02-21] MEDS: SANTYL OINTMENT 1 APPLIC TOPICAL (07:32)
[2024-02-21] MEDS: DESENEX/MITRAZOL/ZEASORB 1 APPLIC TOPICAL ×2 (07:32→21:52)
[2024-02-21] MEDS: HYDROPHOR 1 APPLIC TOPICAL (07:33)
[2024-02-21 08:08] LABS: Glucose - Point of Care 95 mg/dl (70-99)
--- NOTE | 2024-02-21 10:40 | CM ---
Reviewed chart, patent medically read for discharge per attending. CM trying to find placement for SNF. Attending updated.
Plan: Case management will continue to follow and assist with discharge planning. SNF when bed is available.
--- NOTE | 2024-02-21 10:54 | W.PN.HOSP.TC ---
Today's Communication/Plan
-
SNF placement
Assessment / Plan
Assessment / Plan
#Worsening right heel ulcer -- stage 3PI -- poa
#Chronic lymphedema/chronic venous stasis
#Severe plantar fasciitis
-Initially with suspicion for cellulitis versus osteomyelitis, short course of antibiotics, have since been discontinued
-MRI showed evidence of severe plantar fasciitis without any pathognomonic findings of infection
-Patient has been clinically stable since antibiotics were discontinued, ID still following
-Podiatry recommending offloading, once in place will work with PT for disposition plan
-ID and podiatry planning for bone biopsy in 2 weeks, off of antibiotics to increase sensitivity
-Currently without fevers or leukocytosis
#Bilateral sacrum and L posterior thigh with 3 PI -- POA
-Consulted wound care
#Hx of DM 2/diabetic neuropathy
-Accu-Cheks with SSI
-a1c 5.6
#Right lower extremity DVT October 2019
-Not currently on anticoagulation
#Chronic HFmrEF/Cardiomyopathy
#Chronic hypoxic respiratory failure -- 2 L nasal cannula baseline
#Pulmonary hypertension
-Unclear etiology, possibly ischemic; GDMT includes beta-lucero, aspirin and statin; limited by renal function
-Currently on sequential nephron blockade with Lasix and daily metolazone 2.5 mg 30 minutes before Lasix
-Most recent echocardiogram in November showed LVEF 45 to 50% with moderate LVH, right ventricular dilation, moderate and TR
-Does have significant pulmonary hypertension from cardiomyopathy and MARIAMA, group 2 + 3 disease
-Appears euvolemic as of now
#CKD 3B
-Unclear etiology, likely associated with anemia; no acidemia or bone mineral changes
-Baseline creatinine near 1.3, has been stable near 1.3-1.4 over hospital stay
-Seems euvolemic at this time
#Anemia of chronic disease
-Possibly related to chronic kidney disease and other systemic illness
-No signs or symptoms of active bleeding, hemoglobin stable
#HTN�benign
-Not on any first-line agents, renal function likely contributing
-Home regimen includes Lasix, BP currently well-controlled
#HLD
-Home regimen includes moderate intensity statin
-Unclear history of ASCVD
#Asthma
-Maintained on short acting beta agonists as needed
-no signs of acute exacerbation
#Sleep apnea
-Stopped using CPAP several years ago
-Likely contributing to pulmonary hypertension
#Morbid obesity due to excess calorie consumption�BMI 39.6
-Weight loss recommended, 1800diet, fluid restrict
DVT prophylaxis: Subcutaneous Lovenox
Diet: 1800-calorie, fluid restriction
CODE STATUS: Full code
Patient is medically stable for discharge. Pending placement to SNF
Anticipated Discharge: Within 24 hours
Subjective/Interval History
-
Date of Service: February 21, 2024
Seen and examined at the bedside. No acute events reported overnight. No acute events on telemetry.
She states she feels well, thankful for the care she received here. Likely disposition to SNF tomorrow.
Denies chest pain, shortness of breath, fevers or chills, nausea, vomiting, diarrhea, constipation, urinary issues, abnormal bleeding or bruising, paresthesias or weakness. States that her pain is still well-controlled.
Objective Data
-
Vital Signs:
Vital Signs
Temp Pulse Resp BP Pulse Ox
97.8 F 62 18 126/70 97
02/21/24 07:25 02/21/24 07:30 02/21/24 07:25 02/21/24 07:25 02/21/24 07:30
I&O
02/20/24 02/21/24 02/22/24
06:59 06:59 06:59
Intake Total 1620 / 1620 1260 / 1260
Output Total 1400 / 1400 1650 / 1650
Balance 220 / 220 -390 / -390
Review of Systems
-
History Source: Patient
All other systems: Reviewed and negative
Physical Exam
-
General: Well Nourished, No Apparent Distress and Comfortable
HEENT: Normocephalic, Atraumatic and Moist Mucous Membranes
Respiratory: Clear to Auscultation and Non Labored Respirations; Negative Wheezes, Rales, Rhonchi or Accessory Resp Muscle Use
Cardiac: Regular Rhythm, S1/S2 and Murmur (3/6, JAIME); Negative Rub, JVD or Gallop
GI: Soft, Nontender, Nondistended and Normal Bowel Sounds
Musculoskeletal: No Clubbing, No Cyanosis, No Edema and Other (Right lower extremity currently wrapped in bandaging)
Skin: Warm, Dry, Ulcers (Right heel) and Normal Turgor; Negative Rash
Neuro: AO x 3, Nonfocal/Grossly Intact and Central Nerve's Intact
[2024-02-21 12:17] LABS: Glucose - Point of Care 172 mg/dl (70-99)
[2024-02-21] MEDS: NOVOLOG FLEXPEN-LOW RESISTANCE 1 UNITS SC ×2 (12:50→16:26)
[2024-02-21 15:12] VITALS: BP 133/70
[2024-02-21] MEDS: TYLENOL 650 MG PO (15:49)
[2024-02-21 16:09] LABS: Glucose - Point of Care 190 mg/dl (70-99)
[2024-02-21] MEDS: LOVENOX 40 MG SC (16:29)
[2024-02-21 21:41] LABS: Glucose - Point of Care 132 mg/dl (70-99)
[2024-02-22 00:23] VITALS: BP 134/69
[2024-02-22 06:00] VITALS: BMI 38.1
[2024-02-22 07:00] VITALS: BP 147/63
[2024-02-22] MEDS: ADVAIR HFA 115/21 MCG INHALER 2 PUFF INH ×2 (08:00→19:44)
[2024-02-22 08:09] LABS: Glucose - Point of Care 95 mg/dl (70-99)
[2024-02-22] MEDS: NOVOLOG FLEXPEN-LOW RESISTANCE SC ×3 (09:22→16:38)
[2024-02-22] MEDS: THERAGRAN 1 TABLET PO (09:22)
[2024-02-22] MEDS: SORBITRATE 30 MG PO (09:22)
[2024-02-22] MEDS: LIPITOR 20 MG PO (09:22)
[2024-02-22] MEDS: LASIX 80 MG PO ×2 (09:23→16:40)
[2024-02-22] MEDS: ASPIR LOW (ENTERIC COATED) 81 MG PO (09:23)
[2024-02-22] MEDS: KCL PO ×2 (09:23→09:34)
[2024-02-22] MEDS: DESENEX/MITRAZOL/ZEASORB 1 APPLIC TOPICAL (09:23)
[2024-02-22] MEDS: TOPROL XL 25 MG PO (09:23)
[2024-02-22] MEDS: FEOSOL 325 MG PO (09:24)
[2024-02-22] MEDS: SANTYL OINTMENT 1 APPLIC TOPICAL (09:24)
[2024-02-22] MEDS: HYDROPHOR 1 APPLIC TOPICAL (09:27)
[2024-02-22 10:29] VITALS: BP 110/61; PULSE 58; O2SAT 94
[2024-02-22 10:30] VITALS: BP 110/61; PULSE 67; O2SAT 95
--- NOTE | 2024-02-22 10:46 | W.PN.HOSP.TC ---
Today's Communication/Plan
-
Dispo process
CM aware
labs in am
Assessment / Plan
Assessment / Plan
#Worsening right heel ulcer -- stage 3PI -- poa
#Chronic lymphedema/chronic venous stasis
#Severe plantar fasciitis
-Initially with suspicion for cellulitis versus osteomyelitis, short course of antibiotics, have since been discontinued
-MRI showed evidence of severe plantar fasciitis without any pathognomonic findings of infection
-Patient has been clinically stable since antibiotics were discontinued, ID still following
-Podiatry recommending offloading, once in place will work with PT for disposition plan
-ID and podiatry planning for bone biopsy in 2 weeks, off of antibiotics to increase sensitivity
-Currently without fevers or leukocytosis
#Bilateral sacrum and L posterior thigh with 3 PI -- POA
-Consulted wound care
#Hx of DM 2/diabetic neuropathy
-Accu-Cheks with SSI
-a1c 5.6
#Right lower extremity DVT October 2019
-Not currently on anticoagulation
#Chronic HFmrEF/Cardiomyopathy
#Chronic hypoxic respiratory failure -- 2 L nasal cannula baseline
#Pulmonary hypertension
-Unclear etiology, possibly ischemic; GDMT includes beta-lucero, aspirin and statin; limited by renal function
-Currently on sequential nephron blockade with Lasix and daily metolazone 2.5 mg 30 minutes before Lasix. States does not take lasix daily at home
-Most recent echocardiogram in November showed LVEF 45 to 50% with moderate LVH, right ventricular dilation, moderate and TR
-Does have significant pulmonary hypertension from cardiomyopathy and MARIAMA, group 2 + 3 disease
-Appears euvolemic as of now. Check labs in am.
#CKD 3B
-Unclear etiology, likely associated with anemia; no acidemia or bone mineral changes
-Baseline creatinine near 1.3, has been stable near 1.3-1.4 over hospital stay
-Seems euvolemic at this time
#Anemia of chronic disease
-Possibly related to chronic kidney disease and other systemic illness
-No signs or symptoms of active bleeding, hemoglobin stable
#HTN�benign
-Not on any first-line agents, renal function likely contributing
-Home regimen includes Lasix, BP currently well-controlled
#HLD
-Home regimen includes moderate intensity statin
-Unclear history of ASCVD
#Asthma
-Maintained on short acting beta agonists as needed
-no signs of acute exacerbation
#Sleep apnea
-Stopped using CPAP several years ago
-Likely contributing to pulmonary hypertension
#Morbid obesity due to excess calorie consumption�BMI 39.6
-Weight loss recommended, 1800diet, fluid restrict
DVT prophylaxis: Subcutaneous Lovenox
Diet: 1800-calorie, fluid restriction
CODE STATUS: Full code
Patient is medically stable for discharge. Pending placement to SNF vs. Home VN.
Anticipated Discharge: Today
Subjective/Interval History
-
Date of Service: February 22, 2024
No overnight events
Objective Data
-
Vital Signs:
Vital Signs
Temp Pulse Resp BP Pulse Ox
97.2 F 60 16 147/63 94
02/22/24 07:00 02/22/24 08:12 02/22/24 08:12 02/22/24 07:00 02/22/24 08:12
I&O
02/21/24 02/22/24 02/23/24
06:59 06:59 06:59
Intake Total 1260 / 1260 990 / 990
Output Total 1650 / 1650 1200 / 1200
Balance -390 / -390 -210 / -210
Physical Exam
-
General: Well Nourished, No Apparent Distress and Comfortable
HEENT: Normocephalic, Atraumatic, Moist Mucous Membranes and Oxygen
Respiratory: Clear to Auscultation and Non Labored Respirations; Negative Wheezes, Rales, Rhonchi or Accessory Resp Muscle Use
Cardiac: Regular Rhythm, S1/S2 and Murmur (3/6, JAIME); Negative Rub, JVD or Gallop
GI: Soft, Nontender, Nondistended and Normal Bowel Sounds
Musculoskeletal: Other (Right lower extremity currently wrapped in bandaging)
Skin: Warm, Dry, Ulcers (Right heel) and Normal Turgor; Negative Rash
Neuro: Awake, AO x 3, Nonfocal/Grossly Intact and Central Nerve's Intact
--- NOTE | 2024-02-22 11:14 | CM ---
Addendum entered by Heike Martinez 02/22/24 15:08:
Spoke with pt at bedside
Discussed discharge plan - made aware that CM had LM for her daughter and had not received call back. Pt reported she would call her children to discuss discharge
Pt reported a few minutes later that her son would pick her up in the AM. Daughter would be at home per pt and would be available for needs. Requesting an 8AM discharge. Explained to pt that a discharge at that time would be difficult. Pt
acknowledged that she is aware this would be a challenge. Dr Pritchett aware
Discussed home care - prefers [facility] with VN - liaison aware
Discussed IMM
Plan - anticipate home with VN and family care
Original Note:
CM following for discharge planning
PT recs - SNF - pt prefers [facility] or [facility]
Checked bed availability at [facility] and [facility] - no beds available
Pt aware - requested additional options - pt reporting [facility] is only option. Prefers to go home with HH if unable to go to [facility]
Called and LM for pts daughter requesting call back
[2024-02-22 11:28] LABS: Glucose - Point of Care 124 mg/dl (70-99)
[2024-02-22] MEDS: TYLENOL 650 MG PO (11:30)
[2024-02-22 15:00] VITALS: BP 149/69
[2024-02-22 16:36] LABS: Glucose - Point of Care 139 mg/dl (70-99)
[2024-02-22] MEDS: LOVENOX 40 MG SC (17:34)
[2024-02-22 22:18] LABS: Glucose - Point of Care 165 mg/dl (70-99)
[2024-02-22 23:00] VITALS: BP 142/73
[2024-02-23] MEDS: DESENEX/MITRAZOL/ZEASORB 1 APPLIC TOPICAL ×2 (00:23→23:00)
[2024-02-23 06:00] VITALS: BMI 37.4
[2024-02-23 07:40] LABS: Glucose - Point of Care 105 mg/dl (70-99)
[2024-02-23 07:51] VITALS: BP 134/74
[2024-02-23] MEDS: ADVAIR HFA 115/21 MCG INHALER 2 PUFF INH ×2 (08:15→20:20)
[2024-02-23] MEDS: NOVOLOG FLEXPEN-LOW RESISTANCE SC ×2 (09:45→17:13)
[2024-02-23] MEDS: SORBITRATE 30 MG PO (09:46)
[2024-02-23] MEDS: LIPITOR 20 MG PO (09:47)
[2024-02-23] MEDS: THERAGRAN 1 TABLET PO (09:47)
[2024-02-23] MEDS: TOPROL XL 25 MG PO (09:47)
[2024-02-23] MEDS: FEOSOL 325 MG PO (09:47)
[2024-02-23] MEDS: LASIX 80 MG PO ×2 (09:47→17:13)
[2024-02-23] MEDS: ASPIR LOW (ENTERIC COATED) 81 MG PO (09:47)
[2024-02-23 11:36] LABS: Glucose - Point of Care 159 mg/dl (70-99)
--- NOTE | 2024-02-23 11:39 | W.PN.HOSP.TC ---
Today's Communication/Plan
-
Cm for dispo-social issues
cont home meds
Assessment / Plan
Assessment / Plan
#Worsening right heel ulcer -- stage 3PI -- poa
#Chronic lymphedema/chronic venous stasis
#Severe plantar fasciitis
-Initially with suspicion for cellulitis versus osteomyelitis, short course of antibiotics, have since been discontinued
-MRI showed evidence of severe plantar fasciitis without any pathognomonic findings of infection
-Patient has been clinically stable since antibiotics were discontinued, ID still following
-Podiatry recommending offloading, once in place will work with PT for disposition plan
-ID and podiatry planning for bone biopsy in 2 weeks, off of antibiotics to increase sensitivity
-Currently without fevers or leukocytosis
#Bilateral sacrum and L posterior thigh with 3 PI -- POA
-Consulted wound care
#Hx of DM 2/diabetic neuropathy
-Accu-Cheks with SSI
-a1c 5.6
#Right lower extremity DVT October 2019
-Not currently on anticoagulation
#Chronic HFmrEF/Cardiomyopathy
#Chronic hypoxic respiratory failure -- 2 L nasal cannula baseline
#Pulmonary hypertension
-Unclear etiology, possibly ischemic; GDMT includes beta-lucero, aspirin and statin; limited by renal function
-Currently on sequential nephron blockade with Lasix and daily metolazone 2.5 mg 30 minutes before Lasix. States does not take lasix daily at home
-Most recent echocardiogram in November showed LVEF 45 to 50% with moderate LVH, right ventricular dilation, moderate and TR
-Does have significant pulmonary hypertension from cardiomyopathy and MARIAMA, group 2 + 3 disease
-Appears euvolemic as of now. Check labs in am.
#CKD 3B
-Unclear etiology, likely associated with anemia; no acidemia or bone mineral changes
-Baseline creatinine near 1.3, has been stable near 1.3-1.4 over hospital stay
-Seems euvolemic at this time
#Anemia of chronic disease
-Possibly related to chronic kidney disease and other systemic illness
-No signs or symptoms of active bleeding, hemoglobin stable
#HTN�benign
-Not on any first-line agents, renal function likely contributing
-Home regimen includes Lasix, BP currently well-controlled
#HLD
-Home regimen includes moderate intensity statin
-Unclear history of ASCVD
#Asthma
-Maintained on short acting beta agonists as needed
-no signs of acute exacerbation
#Sleep apnea
-Stopped using CPAP several years ago
-Likely contributing to pulmonary hypertension
#Morbid obesity due to excess calorie consumption�BMI 39.6
-Weight loss recommended, 1800diet, fluid restrict
DVT prophylaxis: Subcutaneous Lovenox
Diet: 1800-calorie, fluid restriction
CODE STATUS: Full code
Patient is medically stable for discharge. Home VN as patient with limited SNF option which are currently not available. Case management aware
More than 30 minutes spent in discharge including
Final examination of the patient
Summarizing hospital stay
Instructions for continuing care to all relevant caregivers
Preparation of discharge records, prescriptions, and referral forms
Total time spent (in minutes): 52
Anticipated Discharge: Today
Subjective/Interval History
-
Date of Service: February 23, 2024
No overnight events
Objective Data
-
Vital Signs:
Vital Signs
Temp Pulse Resp BP Pulse Ox
97.3 F 66 18 137/74 94
02/23/24 07:51 02/23/24 09:47 02/23/24 07:51 02/23/24 09:47 02/23/24 07:51
I&O
02/22/24 02/23/24 02/24/24
06:59 06:59 06:59
Intake Total 990 / 990 300 / 300
Output Total 1200 / 1200 1750 / 1750
Balance -210 / -210 -1450 / -1450
--- NOTE | 2024-02-23 12:46 | CM ---
Addendum entered by Heike Martinez 02/23/24 16:32:
Met with pt - reports her son and daughter will come in the AM to Transport to home. Requesting ambulance be cx
despatching and receiving clerk updated and will d/c ambulance
RN made aware
Original Note:
Case management following for discharge planning
Pt was for discharge today. Per pt family was unable to transport as limited availability
Offered transport home - pt reports no one is home today - her daughter will be available tomorrow
Offered transport home tomorrow - pt called her daughter - pt and daughter agreeable to ambulance transport home in AM. Requesting early transport. Hospitalist notified.
Transport arranged for 9AM
Discussed care givers - private and waiver program
Given information for both
[facility] to follow
PLan - home with [facility] in AM
[2024-02-23] MEDS: NOVOLOG FLEXPEN-LOW RESISTANCE 1 UNITS SC (13:09)
[2024-02-23] MEDS: HYDROPHOR TOPICAL (13:54)
[2024-02-23] MEDS: SANTYL OINTMENT 1 APPLIC TOPICAL (13:54)
[2024-02-23] MEDS: DESENEX/MITRAZOL/ZEASORB TOPICAL (13:55)
[2024-02-23 15:14] VITALS: BP 124/68
[2024-02-23 16:20] LABS: Glucose - Point of Care 116 mg/dl (70-99)
[2024-02-23] MEDS: LOVENOX 40 MG SC (17:13)
[2024-02-23 21:41] LABS: Glucose - Point of Care 165 mg/dl (70-99)
[2024-02-23 23:25] VITALS: BP 136/60
[2024-02-24 06:00] VITALS: BMI 37.4
[2024-02-24 07:38] LABS: Glucose - Point of Care 102 mg/dl (70-99)
[2024-02-24] MEDS: ADVAIR HFA 115/21 MCG INHALER 2 PUFF INH (07:39)
[2024-02-24] MEDS: NOVOLOG FLEXPEN-LOW RESISTANCE SC (08:17)
[2024-02-24] MEDS: FEOSOL 325 MG PO (08:17)
[2024-02-24] MEDS: TOPROL XL 25 MG PO (08:17)
[2024-02-24] MEDS: THERAGRAN 1 TABLET PO (08:17)
[2024-02-24] MEDS: LASIX PO (08:17)
[2024-02-24] MEDS: ASPIR LOW (ENTERIC COATED) 81 MG PO (08:17)
[2024-02-24] MEDS: LIPITOR 20 MG PO (08:17)
[2024-02-24] MEDS: SORBITRATE 30 MG PO (08:17)
[2024-02-24] MEDS: HYDROPHOR TOPICAL (08:18)
[2024-02-24] MEDS: DESENEX/MITRAZOL/ZEASORB TOPICAL (08:18)
[2024-02-24] MEDS: SANTYL OINTMENT TOPICAL (08:18)
[2024-02-24 08:23] VITALS: BP 152/80
--- NOTE | 2024-02-24 10:01 | W.DCSUMMARY ---
Discharge Summary
Discharge Data
Date of Admission: 02/15/24
Date of Discharge: 02/24/24
-
Pending Results: No
Hospital Course
78F COPD2L CHF morbid obesity Prediabetes chronic lymphedema CKD III MARIAMA noncompliant w CPAP multiple admissions here, chronic right heel ulcer, sacrum and posterior thigh pressure injuries, neuropathy, anemia of chronic disease, hypertension,
hyperlipidemia, was presenting with complaints of right heel ulcer wound worsening. Initially was suspicion for cellulitis and patient was started on antibiotics. Infectious disease and podiatry was consulted. Infectious disease recommended to
hold off on antibiotics. Patient underwent MRI of the lower extremity which showed evidence of severe planta fasciitis without any pathopneumonic findings of infection. Podiatry evaluated patient recommended offloading and recommended outpatient
evaluation. Per infectious disease to hold off on antibiotics and follow-up with podiatry in 2 weeks time for bone biopsy. Patient was continued on her home regimen of diuretics. Patient was eval by physical and Occupational Therapy was
recommending long term facility. However patient with limited option in a facility that she wanted to go which did not have any bed availability. This patient decided to go home with VN. Patient was recommend to follow-up with her primary
inhalation therapy aides teacher or Dr. Moreno. Also recommended to follow-up with vascular surgery and infectious disease. Due to ability to see multiple specialist SNF was recommended however patient with limited option and did not want to go to any other facility
and decided go home with VN.
Discharge Plan
-
Patient Disposition: Home with Home Care
Discharge Diagnosis/Procedures: Severe planta fasciitis
Chronic lymphedema and chronic venous stasis
Right heel ulcer wound
Condition: Fair
Diet: 2 Gram Sodium and Restrict fluids to 48 oz
Activity: Other activity
Additional Activity: Strict offloading right heel, heel relief shoe if out of bed, MELANIA boots in bed, Non weight bearing to right lower extremity toe touch for transfers
Driving Restrictions: No driving
Activity Restrictions/Additional Instructions:
Wound Care Instructions
Buttocks and L posterior thigh: clean with vashe, smear of honey gel, Xeroform, silicone foam, change q other day and prn drainage
Legs: clean with Vashe, Honey gel/Xeroform gauze/abd valentina or secure with spandage change daily and prn drainage.
R heel: clean with Vashe, Santyl,Xeroform, ABD pad and kerlix change daily and prn drainage.
Shilo wraps knee high daily can remove at bedtime.
Fungal powder in skin folds daily
moisturize legs daily
leg elevation when sitting
Air cushion when sitting.
-Strict offloading right heel, heel relief shoe if out of bed, MELANIA boots in bed, NWB RLE toe touch for transfers
Follow up with Insurance Special Agent as scheduled
Follow up at wound care center call for an appointment.
Referrals:
Margarita Mattson PA-C [Specified Professional Personl] - 03/03/24 9:30 am
Ronan Moreno DPM [Active] - in two weeks
Giuseppe Brasher MD [Family Provider] - in less than 1 week
Eunice Paiz DPM [Specified Professional Personl] - in two weeks (for R heel ulcer wound-consider bone biopsy per Infectious disease recommendation)
Gita Lovell MD [Active] - in two to four weeks
Prescriptions:
New
Santyl 250 unit/gram Ointment
1 applic topical DAILY Qty: 15 0RF
Continued
metolazone 2.5 mg Tablet
2.5 mg PO DAILY@0730
Rx Instructions:
on Thursday
atorvastatin 20 mg Tablet
20 mg PO DAILY
Patient Comments:
12/15/2023, daughter unsure whether morning or evening med.
miconazole nitrate [Miconazorb AF] 2 % Powder
1 applic TOPICAL BID
therapeutic multivitamin Tablet
1 tab PO DAILY
Patient Comments:
12/15/2023, daughter unsure whether morning or evening vitamin.
aspirin 81 mg Tablet,Delayed Release (Dr/Ec)
81 mg PO DAILY
Patient Comments:
12/15/2023, daughter unsure whether morning or evening med.
acetaminophen 650 mg Tablet Extended Release
1,300 mg PO BIDPRN PRN (Reason: mild pain)
isosorbide dinitrate 30 mg Tablet
30 mg PO DAILY
Patient Comments:
12/15/2023, daughter unsure whether morning or evening med.
potassium chloride 20 mEq Tablet,Er Particles/Crystals
20 meq PO DAILY
furosemide 80 mg Tablet
80 mg PO BID@0800,1600
lidocaine 5 % Adhesive Patch,Medicated
2 patch TOPICAL DAILY PRN (Reason: B/L shoulders)
Patient Comments:
12/15/2023, 1 patch per shoulder dailyprn.
ammonium lactate 12 % Cream
1 applic TOPICAL BID
Patient Comments:
12/15/2023, wound care.
metoprolol succinate 25 mg Tablet Extended Release 24 Hr
25 mg PO DAILY
Patient Comments:
12/15/2023, daughter unsure whether morning or evening med.
fluticasone propion-salmeterol [Advair HFA] 115-21 mcg/actuation Hfa Aerosol Inhaler
2 puff INHALATION R BID
Patient Comments:
12/15/2023, pt. cannot have generic form per daughter; pt. reacts negatively to it.
Ultra Collagen + C
1 tab PO DAILY
Patient Comments:
12/15/2023, daughter unsure whether morning or evening vitamin; 1000-10 mg tablet.
diclofenac sodium 1 % gel
1 applic topical Q6HPRN PRN (Reason: B/L knees)
ferrous sulfate [FeroSul] 325 mg (65 mg iron) Tablet
325 mg PO DAILY 30 Days Qty: 30 0RF
MediHoney (honey) 80 % gel
1 applic topical Q OTHER DAY Qty: 44 0RF
levalbuterol tartrate [Xopenex HFA] 45 mcg/actuation Hfa Aerosol Inhaler
2 inh INHALATION Q6H PRN (Reason: SOB/WHEEZING)
Visbiome 112.5 billion cell capsule
2 cap PO DAILY
Discharge Orders:
Discharge Patient (As Directed); Ordered 02/23/24
Ordered By: Yehuda Pritchett
Discharge Date and Time
Discharge Date/Time: 02/24/24 09:16
Print Language: MALTESE
== END 2024-02-24 09:16 | disposition home health service (06) | DRG 637 ==
LOC: 3 WEST ACU 09:26
PROVIDERS: Clinical Nurse Specialist Family Health; Internal Medicine; ADMITTING PHYSICIAN Internal Medicine; ATTENDING PHYSICIAN Hospitalist; CONSULT PHYSICIAN Student in an Organized Health Care Education/Training Program; EMERGENCY PHYSICIAN Emergency Medicine; FAMILY PHYSICIAN Family Medicine; OTHER PHYSICIAN Specialist
DX: E11.621 Type 2 diabetes mellitus with foot ulcer (principal); L89.313 Pressure ulcer of right buttock, stage 3; L89.613 Pressure ulcer of right heel, stage 3; L89.323 Pressure ulcer of left buttock, stage 3; L89.893 Pressure ulcer of other site, stage 3; E44.0 Moderate protein-calorie malnutrition; I13.0 Hypertensive heart and chronic kidney disease with heart failure and stage 1 through stage 4 chronic kidney disease, or unspecified chronic kidney disease; I50.22 Chronic systolic (congestive) heart failure; J96.11 Chronic respiratory failure with hypoxia; I42.9 Cardiomyopathy, unspecified; M72.2 Plantar fascial fibromatosis; I89.0 Lymphedema, not elsewhere classified; N18.32 Chronic kidney disease, stage 3b; E11.22 Type 2 diabetes mellitus with diabetic chronic kidney disease; E11.42 Type 2 diabetes mellitus with diabetic polyneuropathy; D63.1 Anemia in chronic kidney disease; I27.20 Pulmonary hypertension, unspecified; J44.89 Other specified chronic obstructive pulmonary disease; G47.33 Obstructive sleep apnea (adult) (pediatric); I49.3 Ventricular premature depolarization; E78.00 Pure hypercholesterolemia, unspecified; I87.8 Other specified disorders of veins; I87.2 Venous insufficiency (chronic) (peripheral); E66.01 Morbid (severe) obesity due to excess calories; Z68.37 Body mass index [BMI] 37.0-37.9, adult; Z99.81 Dependence on supplemental oxygen; Z98.42 Cataract extraction status, left eye; Z91.199 Patient's noncompliance with other medical treatment and regimen due to unspecified reason; Z91.119 Patient's noncompliance with dietary regimen due to unspecified reason; Z91.040 Latex allergy status; Z88.8 Allergy status to other drugs, medicaments and biological substances; Z88.6 Allergy status to analgesic agent; Z88.1 Allergy status to other antibiotic agents; Z86.718 Personal history of other venous thrombosis and embolism; Z86.16 Personal history of COVID-19; Z83.3 Family history of diabetes mellitus; Z79.899 Other long term (current) drug therapy; Z79.82 Long term (current) use of aspirin; Z79.51 Long term (current) use of inhaled steroids; Z74.01 Bed confinement status; Z22.322 Carrier or suspected carrier of Methicillin resistant Staphylococcus aureus
CPT/HCPCS: 73630; 73721; 80048; 80053; 82962; 83036; 85025; 85652; 86140; 93970; 94640; 96365; 96367; 97110; 97163; 97167; 97530; 97535; 99284

== ENCOUNTER → 2024-03-14 08:41 | Outpatient (REF) | payer MEDICARE, OTHER, SELFPAY | LOC: WOUND 08:41 | PROVIDERS: ATTENDING PHYSICIAN Surgery | DX: I87.311 Chronic venous hypertension (idiopathic) with ulcer of right lower extremity (principal); L97.312 Non-pressure chronic ulcer of right ankle with fat layer exposed; L89.312 Pressure ulcer of right buttock, stage 2; L89.322 Pressure ulcer of left buttock, stage 2; L89.623 Pressure ulcer of left heel, stage 3; L97.321 Non-pressure chronic ulcer of left ankle limited to breakdown of skin; L97.111 Non-pressure chronic ulcer of right thigh limited to breakdown of skin; I87.2 Venous insufficiency (chronic) (peripheral); I89.0 Lymphedema, not elsewhere classified; I73.9 Peripheral vascular disease, unspecified; E11.59 Type 2 diabetes mellitus with other circulatory complications; I49.3 Ventricular premature depolarization; I50.32 Chronic diastolic (congestive) heart failure; N18.32 Chronic kidney disease, stage 3b | CPT/HCPCS: 11042; 97597 ==

== ENCOUNTER → 2024-04-04 08:42 | Outpatient (REF) | payer MEDICARE, OTHER, SELFPAY | LOC: WOUND 08:42 | PROVIDERS: ATTENDING PHYSICIAN Surgery; FAMILY PHYSICIAN Family Medicine | DX: I87.311 Chronic venous hypertension (idiopathic) with ulcer of right lower extremity (principal); L97.312 Non-pressure chronic ulcer of right ankle with fat layer exposed; L89.312 Pressure ulcer of right buttock, stage 2; L89.322 Pressure ulcer of left buttock, stage 2; L89.623 Pressure ulcer of left heel, stage 3; L97.111 Non-pressure chronic ulcer of right thigh limited to breakdown of skin; I87.2 Venous insufficiency (chronic) (peripheral); I89.0 Lymphedema, not elsewhere classified; I73.9 Peripheral vascular disease, unspecified; E11.59 Type 2 diabetes mellitus with other circulatory complications; I49.3 Ventricular premature depolarization; I50.32 Chronic diastolic (congestive) heart failure; N18.32 Chronic kidney disease, stage 3b; L97.511 Non-pressure chronic ulcer of other part of right foot limited to breakdown of skin; L97.521 Non-pressure chronic ulcer of other part of left foot limited to breakdown of skin | CPT/HCPCS: 97597 ==

== ENCOUNTER → 2024-04-26 08:16 | Outpatient (REF) | payer MEDICARE, OTHER, SELFPAY | LOC: WOUND 08:16 | PROVIDERS: ATTENDING PHYSICIAN Surgery; FAMILY PHYSICIAN Family Medicine | DX: L89.613 Pressure ulcer of right heel, stage 3 (principal); L89.312 Pressure ulcer of right buttock, stage 2; L89.322 Pressure ulcer of left buttock, stage 2; L97.321 Non-pressure chronic ulcer of left ankle limited to breakdown of skin; I87.2 Venous insufficiency (chronic) (peripheral); I89.0 Lymphedema, not elsewhere classified; I73.9 Peripheral vascular disease, unspecified; E11.59 Type 2 diabetes mellitus with other circulatory complications; I50.32 Chronic diastolic (congestive) heart failure; N18.32 Chronic kidney disease, stage 3b; L97.511 Non-pressure chronic ulcer of other part of right foot limited to breakdown of skin; L97.521 Non-pressure chronic ulcer of other part of left foot limited to breakdown of skin | CPT/HCPCS: 99213 ==

== ENCOUNTER → 2024-05-09 08:21 | Outpatient (REF) | payer MEDICARE, OTHER, SELFPAY | LOC: WOUND 08:21 | PROVIDERS: ATTENDING PHYSICIAN Surgery; FAMILY PHYSICIAN Family Medicine | DX: L89.613 Pressure ulcer of right heel, stage 3 (principal); L89.312 Pressure ulcer of right buttock, stage 2; L89.322 Pressure ulcer of left buttock, stage 2; L97.321 Non-pressure chronic ulcer of left ankle limited to breakdown of skin; I87.2 Venous insufficiency (chronic) (peripheral); I89.0 Lymphedema, not elsewhere classified; I73.9 Peripheral vascular disease, unspecified; E11.59 Type 2 diabetes mellitus with other circulatory complications; I49.3 Ventricular premature depolarization; I50.32 Chronic diastolic (congestive) heart failure; N18.32 Chronic kidney disease, stage 3b; L97.511 Non-pressure chronic ulcer of other part of right foot limited to breakdown of skin; L97.521 Non-pressure chronic ulcer of other part of left foot limited to breakdown of skin; E11.22 Type 2 diabetes mellitus with diabetic chronic kidney disease | CPT/HCPCS: 11042 ==

== ENCOUNTER 2024-05-23 22:39 | Inpatient (IN) | payer MEDICARE, OTHER, SELFPAY ==
[2024-05-23] VITALS (8 sets, daily range): BP systolic 80–162; BP diastolic 49–133; BMI 38.0
[2024-05-23 20:16] LABS: % Basophils 0.7 % (0-2); % Eosinophils 1.5 % (0-6); % Immature Granulocytes 0.5 % (0-0.5); % Lymphocytes 6.6 % (20.5-51.1); % Monocytes 10.3 % (1.7-9.3); % Neutrophils 80.4 % (42.2-75.2); Absolute Basophils 0.1 10^3/uL (0-0.2); Absolute Eosinophils 0.1 10^3/uL (0-0.7); Absolute Lymphocytes 0.5 10^3/uL (1.2-3.4); Absolute Monocytes 0.8 10^3/uL (0.1-0.6); Absolute Neutrophils 6.1 10^3/uL (1.4-6.5); Hematocrit 33.3 % (37.0-47.0); Hemoglobin 10.4 g/dL (12.0-16.0); Mean Corp Hgb Conc. 31.2 g/dL (33.0-37.0); Mean Corpuscular Hgb 27.5 pg (27.0-31.0); Mean Corpuscular Volume 88.1 fL (81.0-99.0); Mean Platelet Volume 8.9 fL (7.4-10.4); Nucleated Red Blood Cells % 0 %; Platelet Count 240 10^3/uL (130-400); Red Blood Cell Count 3.78 10^6/uL (4.20-5.40); Red Cell Dist. Width 19.8 % (11.5-14.5); White Blood Cell Count 7.6 10^3/uL (4.8-10.8)
[2024-05-23 20:27] LABS: ALT (SGPT) 17 U/L (0-35); AST (SGOT) 23 U/L (14-36); Albumin 3.1 g/dl (3.5-5.0); Alkaline Phosphatase 140 U/L (38-126); Blood Urea Nitrogen 56 mg/dl (7-17); Calcium 8.2 mg/dl (8.4-10.2); Carbon Dioxide 25 mmol/L (22-30); Chloride 102 mmol/L (98-107); Estimated Creatinine Clearance 31 ml/min; Glucose 107 mg/dl (70-99); Potassium 5.1 mmol/L (3.5-5.1); Sodium 138 mmol/L (135-145); Total Bilirubin 0.9 mg/dl (0.2-1.3); Total Protein 7.3 g/dl (6.3-8.2)
--- NOTE | 2024-05-23 20:49 | ED.GENMED ---
History of Present Illness
General
Chief Complaint: Weakness
Time Seen by Provider: 05/23/24 19:59
History of Present Illness
History of Present Illness:
78-year-old female with history of COPD and CHF on chronic O2, anemia, hypertension, MARIAMA with noted noncompliance with CPAP, chronic severe lymphedema with pressure ulcers presenting from home for concern of hypotension. Patient lives at home, is
cared for by her son and daughter. Patient went to wheelchair today when the pressure was noted to be slightly low. Family was told to keep an eye on it. Son checked blood pressure tonight, noted that was it was low so called ambulance. Per
daughter, patient has been very fatigued and tired in the past several days, constantly falling asleep and requiring awakening. Daughter does note that patient has unusual sleep patterns. No reported recent fever. Patient any chest pain or
difficulty breathing. She does feel like she has been urinating less. No additional symptoms reported at this time
Past History
Past History
ED Past Medical History: Arrthythmia (Frequent PVCs), Asthma, CHF, COPD, HTN, Hypercholesterolemia, NIDDM, Other (Chronic lymphedema, Migraines, PNA, DVT, Anemia) and Other (Right lower extremity DVT October 2019)
ED Past Surgical History: Gynecological (Several D&Cs, miscarriage), Tonsilectomy and Other (Cancerous mass removed from right leg 20 years ago. Breast mass removed noncancerous. cataracts, )
Social History
Tobacco: Non-smoker
Alcohol: None
Drug: None
Personal:
Living: assisted living (She lives with her family but she is in rehab at this time at [facility])
Employment: Retired
Family History
Family History: Other (Noncontributory)
Phy Exam
Physical Exam
Physical Exam:
General: Well-appearing, no clinical signs of dehydration, constantly falling asleep however responsive to verbal and tactile stimuli
HEENT: protecting airway
Neck: appears supple
CV: Normal heart rate, regular rhythm
Resp: No accessory muscle use, no increased work of breathing, lungs clear to auscultation bilaterally
Abd: Soft and non-distended, no tenderness to palpation
Extremities: No deformities, severe lymphedema
Neuro: alert, no focal neurologic deficit
: deferred
Rectal: deferred
Psych: Normal affect
Skin: Sacral decubitus ulceration. Right heel wound without erythema or drainage. Skin breakdown to bilateral without swelling erythema or warmth
Course
Orders/Labs/Results
Orders:
Orders
05/23/24 20:04
CMP [Comprehensive Metabolic Panel] Urgent
Complete Blood Count/With Diff Urgent
05/23/24 20:30
Urinalysis Reflex To Culture Urgent
CR Chest - 2 Views Urgent
Comment:
Reason For Exam: fatigue
05/23/24 20:46
COVID-19 Antigen Urgent
Source: Nasal Swab
Venous Blood Gas Urgent
%Oxygen/Room Air: 30
05/23/24 21:27
0.9% Sodium Chloride 500 ml [Nss] 500 ml IV BOLUS
Abnormal Lab Results
05/23/24 05/23/24
20:04 20:46
RBC 3.78 L 10^6/uL
(4.20-5.40)
Hgb 10.4 L g/dL
(12.0-16.0)
Hct 33.3 L %
(37.0-47.0)
MCHC 31.2 L g/dL
(33.0-37.0)
RDW 19.8 H %
(11.5-14.5)
Absolute Lymphs (auto) 0.5 L 10^3/uL
(1.2-3.4)
Absolute Monos (auto) 0.8 H 10^3/uL
(0.1-0.6)
Neutrophils % 80.4 H %
(42.2-75.2)
Lymphocytes % 6.6 L %
(20.5-51.1)
Monocytes % 10.3 H %
(1.7-9.3)
VBG pO2 57 H mmHg
(30-50)
VBG HCO3 28.4 H mmol/L
(22-27)
BUN 56 H mg/dl
(7-17)
Creatinine 1.6 H mg/dL
(0.6-1.0)
Glucose 107 H mg/dl
(70-99)
Calcium 8.2 L mg/dl
(8.4-10.2)
Alkaline Phosphatase 140 H U/L
(38-126)
Albumin 3.1 L g/dl
(3.5-5.0)
05/23/24 20:04
05/23/24 20:04
Vital Signs
Initial and Last Documented VS:
Initial Vital Signs
Pulse Ox
96
05/23/24 19:49
Last Documented Vital Signs
Temp Pulse Resp BP Pulse Ox
97.6 F 59 17 80/51 97
05/23/24 19:51 05/23/24 21:17 05/23/24 21:17 05/23/24 21:17 05/23/24 21:17
MDM/Problems Addressed
MDM/Problems Addressed:
78-year-old female with history of COPD and CHF on chronic O2, anemia, hypertension, MARIAMA with noted noncompliance with CPAP, chronic severe lymphedema with pressure ulcers presenting for fatigue, lethargy, hypotension. Vital signs on arrival show
hypertension.
On exam patient is resting comfortably no acute distress. She is persistently falling asleep, with awakening, however protecting airway and responsive to both tactile and verbal stimuli. Did call and discuss preceding events with daughter who
notes that she has been like this for the past few days without specific complaints, however does note unusual sleeping patterns. Patient herself without specific complaints, however does note that she has difficulty staying awake. Given history
of MARIAMA with noncompliance, hypercapnia is a consideration. Will obtain VBG. Patient with history of anemia, will check CBC to ensure no symptomatic anemia. Patient's wounds were exposed and redressed, no signs of acute infection. Will send COVID
swab and obtain chest x-ray imaging sure no pulmonary process. Will send urinalysis to evaluate for possible urinary tract infection. Will continue to close monitor, currently normotensive
21:30 -patient's blood pressure dropped to 80/50. Mild ALMA, so will administer small fluid bolus. Baseline anemia. No significant hypercapnia. Pending urinalysis and chest x-ray imaging, however will require admission for hypotension and
lethargy.
*Critical Care Note
Total Time (30-74mins, 75-104mins- exclusive of procedures): Not Applicable
ED Attending Note
-
Portions of this chart may have been created with voice recognition software.� Occasional wrong word or��sound alike� substitutions may have occurred due to the inherent limitations of voice recognition software.
Discharge Plan
Departure
Prescriptions:
No Action
metolazone 2.5 mg Tablet
2.5 mg PO SA
atorvastatin 20 mg Tablet
20 mg PO HS
miconazole nitrate [Miconazorb AF] 2 % Powder
1 applic TOPICAL BIDPRN PRN (Reason: B/L breasts/groin)
therapeutic multivitamin Tablet
1 tab PO QPM
Patient Comments:
12/15/2023, daughter unsure whether morning or evening vitamin.
aspirin 81 mg Tablet,Delayed Release (Dr/Ec)
81 mg PO DAILY
acetaminophen 650 mg Tablet Extended Release
1,300 mg PO BIDPRN PRN (Reason: mild pain)
potassium chloride 20 mEq Tablet,Er Particles/Crystals
40 meq PO SA
furosemide 80 mg Tablet
80 mg PO BID@0800,1600
lidocaine 5 % Adhesive Patch,Medicated
2 patch TOPICAL DAILYPRN PRN (Reason: B/L shoulders)
Patient Comments:
12/15/2023, 1 patch per shoulder dailyprn.
ammonium lactate 12 % Cream
1 applic TOPICAL BID
Patient Comments:
12/15/2023, wound care.
metoprolol succinate 25 mg Tablet Extended Release 24 Hr
25 mg PO NOON
fluticasone propion-salmeterol [Advair HFA] 115-21 mcg/actuation Hfa Aerosol Inhaler
2 puff INHALATION R BID
Patient Comments:
12/15/2023, pt. cannot have generic form per daughter; pt. reacts negatively to it.
diclofenac sodium 1 % Gel
2 g TOPICAL QIDPRN PRN (Reason: B/L knees) Qty: 0
MediHoney (honey) 80 % gel
1 applic topical Q OTHER DAY Qty: 44 0RF
levalbuterol tartrate [Xopenex HFA] 45 mcg/actuation Hfa Aerosol Inhaler
2 inh INHALATION R Q6HPRN PRN (Reason: SOB/WHEEZING)
Visbiome 112.5 billion cell capsule
1 cap PO Q48H
Santyl 250 unit/gram Ointment
1 applic topical DAILY Qty: 15 0RF
isosorbide mononitrate 30 mg Tablet Extended Release 24 Hr
30 mg PO NOON
doxycycline monohydrate 100 mg Capsule
100 mg PO BID
Patient Comments:
05/23/24: to take for 10 days filled 05/18/24
Collagen Plus Vitamin C 125-740 mg Capsule
1 cap PO QPM
ferrous sulfate [FeroSul] 325 mg (65 mg iron) tablet
325 mg PO Q48H
Referrals:
Miguel Bella, DO [Family Provider] -
Interventions
Interventions:
*General Assessment Last Done: 05/23/24 20:08
*Neglect/Abuse Screening Last Done: 05/23/24 20:08
*ED COVID-19 Vaccine History Last Done: 05/23/24 20:08
ED- Cardiac Assessment Last Done: 05/23/24 20:08
ED- Neurological Assessment Last Done: 05/23/24 20:08
ED- Pulmonary Assessment Last Done: 05/23/24 20:08
Discharge Date and Time
Print Language: CROATIAN
[2024-05-23 20:52] LABS: Venous Blood Gas B.E. 2.7 mmol/L (-4 to +4); Venous Blood Gas HCO3 28.4 mmol/L (22-27); Venous Blood Gas pCO2 48 mmHg (35-48); Venous Blood Gas pH 7.38 (7.32-7.43); Venous Blood Gas pO2 57 mmHg (30-50)
[2024-05-23 21:08] LABS: COVID-19 Antigen Negative (Negative)
[2024-05-23] MEDS: NSS 500 IV (21:37)
--- NOTE | 2024-05-23 21:52 | HPS.HSE ---
Family Physician
-
Family Physician: Miugel Bella
Chief Complaint
-
Hypotension
History of Present Illness
Patient is an 78 y/o female past medical history of chronic hypoxia, chronic heart failure, chronic lymphedema, and diabetes mellitus who presents with low blood pressure. Patient was seen at [facility] earlier today and her BP was noted
to be low. Family was instructed to monitor her blood pressure at home. The son checked her blood pressure this evening and noted a systolic blood pressure in the 70s. EMS was called and she was brought to the emergency department for evaluation.
BP was initially stable but then dropped again while in the emergency department. Family has noted patient to be weak and lethargic, but no other specific symptoms.
Medical History
Past Medical History
Past Medical History: Reports Other
Additional Past Medical History:
Chronic hypoxic respiratory failure on home oxygen 1-2 L via NC
Chronic HFrEF (40-45%)
CKD Stage III
Frequent PVCs and bigeminy
Asthma
Chronic Lymphedema and chronic venous stasis changes
Hypertension
HLD
DM II
MARIAMA
Peripheral Neuropathy
History of DVT
Morbid Obesity
Medication and dietary non-adherence
Past Surgical History: Reports Other
Additional Past Surgical History:
B/l cataract surgery, Several D&Cs, miscarriage, Tonsillectomy, Cancerous mass removed from right leg 20 years ago, Breast mass removed noncancerous.
Social History
Tobacco: Non-smoker
Alcohol: None
Drug: None
Family History
Family History: Other (Father: DM, HTN Mother: Thyroid Disease)
Allergies / Home Medications
Allergies reflects when Allergies were last updated in [facility].
Home Medications with original date entered in [facility]
Allergy/Medication List:
Allergies
Allergy/AdvReac Type Severity Reaction Status Date / Time
albuterol Allergy 'could not Verified 05/23/24 20:00
breath'
ceftriaxone [From Rocephin] Allergy Rash Verified 05/23/24 20:00
3
admission
cefuroxime [From Ceftin] Allergy facial Verified 05/23/24 20:00
droop,lip
swell/Margie
cefepime,
cefazolin
latex Allergy Rash Verified 05/23/24 20:00
levofloxacin [From Levaquin] Allergy facial Verified 05/23/24 20:00
droop,
rash,
numbness
lisinopril Allergy Shortness Verified 05/23/24 20:00
of Breath
naproxen Allergy Rash Verified 05/23/24 20:00
NSAIDS (Non-Steroidal Allergy Rash Verified 05/23/24 20:00
Anti-Inflamma
poison aroldo extract Allergy Unknown Verified 05/23/24 20:00
poison oak extract Allergy Unknown Verified 05/23/24 20:00
Home Medications
acetaminophen 650 mg tablet,extended release 1,300 mg PO BIDPRN PRN mild pain 12/15/23
ammonium lactate 12 % topical cream 1 applic topical BID B/L lower legs 12/15/23
aspirin 81 mg tablet,delayed release 81 mg PO DAILY Blood Clot Prevention/Tx 12/15/23
atorvastatin 20 mg tablet 20 mg PO HS High Cholesterol 12/15/23
diclofenac sodium 1 % topical gel 2 g topical QIDPRN PRN B/L knees ##0 12/15/23
fluticasone propionate 115 mcg-salmeterol 21 mcg/actuation HFA inhaler (Advair HFA) 2 puff inhalation R BID Lung/Breathing Issues 12/15/23
furosemide 80 mg tablet 80 mg PO BID@0800,1600 edema 12/15/23
lidocaine 5 % topical patch 2 patch topical DAILYPRN PRN B/L shoulders 12/15/23
metolazone 2.5 mg tablet 2.5 mg PO SA Fluid Retention/Swelling 12/15/23
metoprolol succinate 25 mg tablet,extended release 24 hr 25 mg PO NOON Blood Pressure 12/15/23
miconazole nitrate 2 % topical powder (Miconazorb AF) 1 applic topical BIDPRN PRN B/L breasts/groin 12/15/23
potassium chloride 20 mEq tablet,extended release(part/cryst) 40 meq PO SA Electrolyte Repletion 12/15/23
therapeutic multivitamin 1 tab PO QPM Supplement 12/15/23
honey 80 % topical gel (MediHoney (honey)) 1 applic topical Q OTHER DAY #44 mL 12/24/23
levalbuterol tartrate 45 mcg/actuation aerosol inhaler (Xopenex HFA) 2 inh inhalation R Q6HPRN PRN SOB/WHEEZING 02/13/24
Lactobac no.2-Bifidobac no.1-S. thermo 112.5 billion cell capsule (Visbiome) 1 cap PO Q48H Supplement 02/14/24
collagenase clostridium histo. 250 unit/gram topical ointment (Santyl) 1 applic topical DAILY #15 grams 02/22/24
ascorbic acid 125 mg-collagen, hydrolyzed 740 mg capsule (Collagen Plus Vitamin C) 1 cap PO QPM 05/23/24
doxycycline monohydrate 100 mg capsule 100 mg PO BID 05/23/24
ferrous sulfate 325 mg (65 mg iron) tablet (FeroSul) 325 mg PO Q48H 05/23/24
isosorbide mononitrate 30 mg tablet,extended release 24 hr 30 mg PO NOON 05/23/24
Review of Systems
-
A 12 point ROS was completed and negative except as noted: Yes
Constitutional: Denies Fever
Respiratory: Denies Cough or Trouble Breathing
Cardiac: Denies Chest Pain or Palpitations
Abdomen/GI: Denies Abdominal Pain, Nausea, Vomiting or Diarrhea
Neurological: Reports Weakness (Generalized); Denies Dizzy
Physical Exam
Vital Signs
Vital Signs
Temp Pulse Resp BP Pulse Ox
97.6 F 59 17 80/51 97
05/23/24 19:51 05/23/24 21:17 05/23/24 21:17 05/23/24 21:17 05/23/24 21:17
Physical Exam
General: Comfortable, Conversant and Obese
HEENT: Anicteric and Oxygen (Nasal Cannula)
Respiratory: Clear and Non Labored Respirations
Cardiac: S1/S2, Regular Rhythm and Murmur (2/6 systolic murmur)
GI: Soft, Non Tender and Other (Protuberant)
Musculoskeletal: No Clubbing, No Cyanosis and Other (chronic lower extremity lymphedema)
Skin: Warm, Dry and Other (bilateral lower extremity wound wrapped in Pedro; Chronic venous stasis changes bilateral lower extremities)
Neuro: Awake, Alert, Oriented and Nonfocal/grossly intact
Psych: Calm
Laboratory Results
-
05/23/24 20:04
05/23/24 20:04
Laboratory Results
Total Bilirubin 0.9 mg/dl (0.2-1.3) 05/23/24 20:04
AST 23 U/L (14-36) 05/23/24 20:04
ALT 17 U/L (0-35) 05/23/24 20:04
Alkaline Phosphatase 140 U/L (38-126) H 05/23/24 20:04
Data Reviewed
-
Lab Data: Labs Reviewed by me
Impression/Plan
-
Acute Kidney Injury on CKD Stage III
-Hold diuretics
-Give slow IVFs overnight
-Repeat labs in AM
Hypotension, suspect secondary to hypovolemia
-Continue slow IVFs
-Hold isosorbide and metoprolol
-Check lactic acid and procalcitonin
-Monitor BP closely
Chronic Hypoxic Respiratory Failure
-Continue supplemental oxygen
Chronic HFrEF
-Diuretics on hold
-Monitor Is&Os and Daily Weights
Asthma, no acute exacerbation
-Continue Advair
Hyperlipidemia
-Continue atorvastatin
Class II Obesity
-Affects all aspects of care
Bilateral Lower Extremity and Sacral Wounds
-Consult Wound Care
DVT proph: SC Heparin
Code Status: Full Code
--- NOTE | 2024-05-23 22:34 | W.PN.UPDATE ---
Update Note
Progress Note Update
This note serves as an addendum to the H&P by [employer] us[employer] supervisor AP: Nicole HORAN
HPI
78F from Home HX COPD, HX CHF, chronic home O2, anemia, HTN, MARIAMA, noncompliance with CPAP, chronic severe Mikhail lymphedema with pressure ulcers pw fatigue and hypotension noted at wound care center.
- Son checked it tonight and it was systolic 70s of unclear etiology
- Reports constantly falling asleep but does arouse easily.
Afebrile
large sacral decubitus wound
PMHX as above:
Reviewed VS:
Vital Signs
Temp Pulse Resp BP Pulse Ox
97.6 F 59 16 88/70 99
05/23/24 19:51 05/23/24 21:39 05/23/24 21:39 05/23/24 21:39 05/23/24 21:39
PE
Obese
Gen: Constantly falling asleep however responsive to verbal and tactile stimuli
HEENT:supple
Neck: no JVD
Lungs:clear
Cor:RR S1 S2
Abdomen: Soft and non-distended, no tenderness to palpation
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
Skin and MS: Sacral decubitus ulceration. Right heel wound without erythema or drainage. Skin breakdown to bilateral without swelling erythema or warm
Psych:Normal affect
Data
05/23/24
20:04
WBC 7.6
Hgb 10.4 L
No leukocytosis
NEG COVID
VBG 7.38/ pCO2 48 pO2 57 HCO3 28
Cr 1.6 - b/l is 1.3 s
eGFR 32 - b/l low 40 c/w CKD 3b
pending a urine
pending CXR
12/22/2023 TTE
EF 45-50%, moderate LVH,
global hypokinesis
mildly dilated hypocontractile right ventricle,
mild to moderate aortic stenosis peak mean gradients 36/21 mmHg mild/moderate TR pulm arterial pressure 51 mmHg, IVC mildly dilated
Last hospitalist admission: Date of Admission: 02/15/24 - Date of Discharge: 02/24/24
Discharge Diagnosis/Procedures:
Severe planta fasciitis
Chronic lymphedema and chronic venous stasis
Right heel ulcer wound
ASSESSMENT & PLAN
Hypotension DDX : more likely overdiuresis than sepsis realyed hypotension
Afebrile , nl WCC
HX LVEF 45- 50
No clinical sepsis
- s/p NS 500 cs
- IV NS @ 40/H for 500 cc more
- Observe BP in response to IVF
- Hold IMN, Metoprolol succinate , Frusemide 80 BID, Zaroxolyn 2.5 mg on last Sat
- sepsis PCT
- check LA
- Till then hold of ABx
ALMA due to overdiuresis: Cr 1.6
HX CKD 3B - b/l is 1.3 s, e GFR 40s
HX anemia of chronic disease
Hgb 10.8 baseline appears 10.5
- f/u Hgb
- Follow BMP
Associated with lethargic metabolic encepalopathy due to hypotension and ALMA
easily arousable
- fall precaution
HX Chr HFrEF : stable: Not in acute HF
Chronic hypoxic respiratory failure on chronic 2 L nasal cannula
HX multiple sepsis pneumonia most recent as 12/21/2023.,
- I/O, daily weight
Benign HTN�benign
- Hold anti HTN Meds due to hypotension
HLD
- continue atorvastatin 20 mg at bedtime
Asthma-no acute exacerbation
Sleep apnea
- No compliance with CPAP several years ago
Morbid obesity due to excess calorie consumption�BMI 39.6
Weight loss recommended, 1800diet, fluid restrict
DVT Px:SQH
Full code
IP TLM
[2024-05-23 23:02] LABS: NT-proBNP 18700 pg/ml
[2024-05-23 23:22] LABS: Lactic Acid 1.1 mmol/L (0.7-2.0)
[2024-05-23 23:39] LABS: Procalcitonin 0.26 ng/ml (0.0-0.25)
[2024-05-23] MEDS: TYLENOL 650 MG PO (23:43)
[2024-05-24] VITALS (9 sets, daily range): BP systolic 94–126; BP diastolic 57–79; BMI 40.7
[2024-05-24] MEDS: NSS 500 IV (03:34)
--- NOTE | 2024-05-24 05:29 | PTCARENOTE ---
Pt admitted from ED, AAOx3. No c/o pain. Pt afebrile, VSS. Pt on 2L O2. No N/V or stools noted. Pt refusing straight cath at this time for urine specimen collection, stating 'I will use the commode' and 'I don't have to go right now.' q2
turns. Bed alarm in place. Bed in lowest position and call disla within reach.
--- NOTE | 2024-05-24 06:26 | W.PN.UPDATE ---
Update Note
Progress Note Update
-Reported by the nursing staff that the patient is bradycardia in 50s and occasionally heart rate goes down to 38 for seconds and back to 50s again. Current bp 112/60 and hr 58.
-By reviewing the chart, patient has a history of sleep apnea. Patient is a mouth breathing noted during the exam.
- Will add Bipap for now. Monitor for any changes and consider cardiology if symptomatic and no improvement with Bipap.
[2024-05-24 06:40] LABS: Hematocrit 31.2 % (37.0-47.0); Hemoglobin 9.5 g/dL (12.0-16.0); Mean Corp Hgb Conc. 30.4 g/dL (33.0-37.0); Mean Corpuscular Hgb 27.9 pg (27.0-31.0); Mean Corpuscular Volume 91.8 fL (81.0-99.0); Mean Platelet Volume 9.3 fL (7.4-10.4); Platelet Count 207 10^3/uL (130-400); Red Cell Dist. Width 19.9 % (11.5-14.5); White Blood Cell Count 5.9 10^3/uL (4.8-10.8)
[2024-05-24 07:06] LABS: Blood Urea Nitrogen 54 mg/dl (7-17); Calcium 7.8 mg/dl (8.4-10.2); Carbon Dioxide 26 mmol/L (22-30); Chloride 104 mmol/L (98-107); Estimated Creatinine Clearance 29 ml/min; Glucose 55 mg/dl (70-99); Magnesium 2.5 mg/dl (1.6-2.3); Potassium 4.9 mmol/L (3.5-5.1); Sodium 140 mmol/L (135-145)
[2024-05-24 07:34] LABS: Cortisol, Random 14.3 ug/dl
[2024-05-24] MEDS: ADVAIR HFA 115/21 MCG INHALER INH (08:06)
[2024-05-24 08:24] LABS: Glucose - Point of Care 72 mg/dl (70-99)
[2024-05-24] MEDS: ASPIR LOW (ENTERIC COATED) 81 MG PO (08:33)
[2024-05-24] MEDS: VIBRAMYCIN 100 MG PO (08:33)
[2024-05-24] MEDS: HEPARIN 5000 UNITS SC ×3 (08:35→22:59)
[2024-05-24] MEDS: DESENEX/MITRAZOL/ZEASORB 1 APPLIC TOPICAL ×2 (08:37→20:38)
--- NOTE | 2024-05-24 09:15 | VNURNOTE ---
Chart reviewed. Patient is current with [facility] nursing, PT. Will continue to follow hospital course and DC plans.
[2024-05-24 09:24] LABS: Glycohemoglobin (HgbA1c) 5.3 % (4.0-5.6)
--- NOTE | 2024-05-24 10:05 | WOUNDNOTE ---
L MEDIAL LOWER LEG
--- NOTE | 2024-05-24 10:05 | WOUNDNOTE ---
R LATERAL LOWER LEG
--- NOTE | 2024-05-24 10:06 | WOUNDNOTE ---
SACRUM AND L BUTTOCK
--- NOTE | 2024-05-24 10:06 | WOUNDNOTE ---
L ISCHIUM AND THIGH
--- NOTE | 2024-05-24 10:07 | WOUNDNOTE ---
R POSTERIOR LEG AND HEEL
--- NOTE | 2024-05-24 10:10 | WOUNDNOTE ---
WON RN note: Patient admitted with hypotension and lethargy.
See H&P for complete history.
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 PI on B/L buttocks and ischium.
Wound Location and type/assessment: Patient last seen 02/17/24 for same venous stasis ulcers LE's, and PI on buttocks/ischium/posterior thighs. legs with chronic lymphedema, +Hemosiderosis,+Palpable pedal pulses. L Heel is intact, R plantar heel
with healing stage 3 PI, now clean pink base. Sacrum and R ischium with healing stage 3 PI. L posterior thigh and ischium with healed PI, now with pink scar. Abdominal/groin/breast skin folds with yeasty red skin, fungal powder and folded ABD pads
applied by nurse Dom who assisted with assessment.
Appetite: TBD
Pressure redistribution devices in place:Accumax, called bed tech Osiel for Centrella max air bed. Called [facility] for Offloading fiber filled boots. Air chair cushion when sitting. Nurse aware of the above and will apply.
Plan:Reviewed wound care last done by [facility] yesterday, applied honey gel, Xeroform and dry dressing to all wounds except R heel, Xeroform and dry dressing. Adhesive foam applied to L intact heel. A&D ointment applied to legs and feet, will order
mineral oil. Confirmed above wound care with Dr. Garrido at bedside. Repositioned onto R semi side lying position. Updated nurse, care plan to be updated and will follow as needed.
Recommend follow up at wound care center and [employer] upon discharge.
--- NOTE | 2024-05-24 10:15 | W.PN.HOSP.TC ---
Today's Communication/Plan
-
see PN
Assessment / Plan
Assessment / Plan
78yo F with PMHX of DM, DVT, HFmrF, chronic hypoxic respiratory failure on 2L O2, CKD, anemia, HTN, HLD, asthma, MARIAMA, obesity, sacral pressure injury, chronic lymphedema, Hx of R heel diabetic wound and OM on Doxy came with hypotension for couple of
days and decreased urination for 1 week. WIth hypotermia and c/o worsening redness on L foot - concern for early cellulitits of LLE
A/P:
#LLE cellulitis with wound and hypothermia
#Chronic b/l L lymphedema
woundcare
XR L foot
Zosyn/Vanco, stop Doxy while on Vanco
Bcx
Podiatry consult
arterial US
#Hypotension
#Bradycardia
#Chronic HFmrF
most likely overdiuresis and infection combination
telemetry
hold Lasix and BB
Cardio consult
TSH and cortisol WNL
#Bilateral sacrum and L posterior thigh wounds
Wound care
#elevated alk.phos
no abd pain
US RUQ is reasonable
#HX of DVT
not on AC
#Asthma
cont bronchodilators
#DM type 2 with nephropathy
Accuchecks, DM diet, Insulin SS
#HLD
#JOSUE
#Morbid obesity BMI 40.7
#MARIAMA intolernt of CPAP
cont home meds
Decrease calorie intake
DVT ppx hep
Full code
I have espent at least 59min reviewing the chart, test results, communication with consultants and direct patient care
Anticipated Discharge: > 48 hours
Subjective/Interval History
-
Date of Service: May 24, 2024
Objective Data
-
Labs:
Laboratory Results
05/24/24
05:47
WBC 5.9
Hgb 9.5 L
Hct 31.2 L
Plt Count 207
Sodium 140
Potassium 4.9
Chloride 104
Carbon Dioxide 26
BUN 54 H
Creatinine 1.6 H
Glucose 55 L*
Calcium 7.8 L
Vital Signs:
Vital Signs
Temp Pulse Resp BP Pulse Ox
94.5 F L 58 18 126/59 99
05/24/24 10:00 05/24/24 08:20 05/24/24 08:20 05/24/24 08:20 05/24/24 08:20
I&O
05/23/24 05/24/24 05/25/24
06:59 06:59 06:59
Intake Total 120 / 120 240 / 240
Balance 120 / 120 240 / 240
Review of Systems
-
History Source: Patient
All other systems: Reviewed and negative
Physical Exam
-
General: No Apparent Distress and Morbidly Obese
GI: Soft
Musculoskeletal: No Clubbing, No Cyanosis, Edema, Right Lower Extrem and Edema, Left Lower Extrem
Skin: Other (b/l L redness)
Neuro: Awake, Alert, Oriented and AO x 3
Psych: Calm
[2024-05-24] MEDS: ZOSYN 50 IV ×3 (10:34→22:36)
--- NOTE | 2024-05-24 11:03 | PHA.VAN.IN ---
Assessment
- Assessment
Renal Function: Appears similar to baseline (SCR ranged 1.1 to 1.6 in last several months)
Concomitant Antimicrobials: piperacillin/tazobactam
Plan
- Plan
Initial / Loading Dose: 2000mg - administration pending
Maintenance Regimen: dosing by level
Monitoring: random 05/25 0600
Pharmacokinetics Vancomycin I
- -
Patient Age: 78
Patient Sex: Female
Vancomycin Day #: 1
Indication: Skin And Soft Tissue
Requesting Provider: Dr. Garrido
Pertinent Antimicrobial Allergies:
ceftriaxone - rash
cefuroxime - facial droop and lip swelling; previously tolerated cefepime and cefazolin
levofloxacin - facial droop, rash, numbness
Height / Weight:
Height 5 ft
Actual Weight 94.574 kg
Pertinent Past Medical History: BMI ~41, Home O2, CKD, DM
- Vital Signs / Lab Results
Temp Pulse Resp BP Pulse Ox
94.5 F L 58 18 126/59 99
05/24/24 10:00 05/24/24 08:20 05/24/24 08:20 05/24/24 08:20 05/24/24 08:20
Lab Results - Hematology
05/23/24 05/24/24
20:04 05:47
WBC 7.6 5.9
Lab Results - Chemistry
05/23/24 05/24/24
20:04 05:47
BUN 56 H 54 H
Creatinine 1.6 H 1.6 H
Estimated Creat Clear 31 29
Albumin 3.1 L
05/23/24
23:03
Lactic Acid 1.1
[2024-05-24] MEDS: VANCOCIN 540 MG IV (11:33)
[2024-05-24 12:12] LABS: Urine Albumin Trace (Neg - Trace); Urine Bilirubin Negative (Negative); Urine Character Clear (Clear); Urine Color Yellow; Urine Glucose Negative (Negative); Urine Ketone Negative (Negative); Urine Leukocyte Negative (Negative); Urine Nitrite Negative (Negative); Urine Occult Blood Negative (Negative); Urine Urobilinogen Negative (Neg - 1+)
[2024-05-24 14:06] LABS: Glucose - Point of Care 70 mg/dl (70-99)
--- NOTE | 2024-05-24 15:00 | CON.CAR ---
Addendum entered and electronically signed by Annie Naik MD 05/24/24 17:35:
I saw and examined the patient.
The [facility]'s note was reviewed and I agree with the note.
Comment: She came to the emergency department for somnolence and was admitted with hypotension, hypothermia and cardiology was now consulted for history of CHF. proBNP is higher than her usual baseline. She tells me she has been fatigued and
sleeping more at home and even missed a day of eating and drinking because of this. She did receive IV fluids.
-Would hold on further IV fluids for now.
-Would rule out infectious source and will defer to primary care physicians.
-Bradycardia is predominantly at night and she has sleep apnea which is untreated at her request. Continue to reconsider. Follow telemetry. Beta-lucero on hold.
-She is on isosorbide as an outpatient. No angina. Would discontinue.
-In the next 24 to 48 hours as long as remains stable would reinstitute diuretic therapy and follow closely. She has chronic kidney disease but creatinine is mildly increased compared to prior.
Original Note:
Consultation
Consultation Request
Date/Time Consultation Requested: 05/24/24 at 1005
Date/Time Consultation Performed: 05/24/24 at 1500
Requesting Provider: Dr. Garrido
Performing Provider: Dr. Annie Naik
Reason for Consultation: h/o CHF and now concern for hypovolemia
Medical History
-
History of Present Illness:
Patient came to [facility] yesterday with somnolence and was admitted with hypotension and cardiology is now consulted for history of CHF. Patient reports that she has been sleeping more than usual lately and slept an entire day without eating and
drinking like normal recently. She canceled PT at home this week because she was too tired to complete the activities. She has still been taking her usual dose of Lasix 80 mg twice daily. She has not noticed much of a change in her urine output.
No chest pain or palpitations. She has a history of recurrent heart failure admissions, but has not been admitted to for CHF in 6 months. She had an admission in January of this year for a foot wound and currently there is concern for LLE
cellulitis with Zosyn and vancomycin ordered. Blood cultures have also been ordered after an episode of hypothermia this morning. Her TFTs were normal.
PMH:
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
EF 45-50% by echo 10/01/23
CKD 3b
Chronic hypoxic respiratory failure on home oxygen 2 L via NC
Frequent PVCs and bigeminy
Asthma/COPD
Chronic Lymphedema and chronic venous stasis changes
Hypertension
HLD
DM II
MARIAMA
Peripheral Neuropathy
History of DVT
Morbid Obesity
Medication and dietary non-adherence
Past Medical History
Past Medical History: Other (in HPI)
Past Surgical History: Other (B/L cataract surgery, Several D&Cs, miscarriage, Tonsillectomy, Cancerous mass removed from right leg 20 years ago, Breast mass removed noncancerous)
Social History
Tobacco: Non-Smoker
Alcohol: None
Drug: None
Living: With Family (she is back to living at home with her son and daughter after rehab stay earlier this year)
Family History
Family History: Cancer and Other (thamassemia)
Allergies / Home Medications
Allergy/AdvReac Type Severity Reaction Status Date / Time
albuterol Allergy 'could not Verified 05/23/24 20:00
breath'
ceftriaxone [From Rocephin] Allergy Rash Verified 05/23/24 20:00
08/28/23
admission
cefuroxime [From Ceftin] Allergy facial Verified 05/23/24 20:00
droop,lip
swell/Margie
cefepime,
cefazolin
latex Allergy Rash Verified 05/23/24 20:00
levofloxacin [From Levaquin] Allergy facial Verified 05/23/24 20:00
droop,
rash,
numbness
lisinopril Allergy Shortness Verified 05/23/24 20:00
of Breath
naproxen Allergy Rash Verified 05/23/24 20:00
NSAIDS (Non-Steroidal Allergy Rash Verified 05/23/24 20:00
Anti-Inflamma
poison aroldo extract Allergy Unknown Verified 05/23/24 20:00
poison oak extract Allergy Unknown Verified 05/23/24 20:00
�Medication �Instructions �Recorded �Confirmed �Type
acetaminophen 650 mg 1,300 mg PO BIDPRN PRN mild pain 12/15/23 05/23/24 History
tablet,extended release
ammonium lactate 12 % topical cream 1 applic topical BID B/L lower legs 12/15/23 05/23/24 History
aspirin 81 mg tablet,delayed 81 mg PO DAILY Blood Clot 12/15/23 05/23/24 History
release Prevention/Tx
atorvastatin 20 mg tablet 20 mg PO HS High Cholesterol 12/15/23 05/23/24 History
diclofenac sodium 1 % topical gel 2 g topical QIDPRN PRN B/L knees 12/15/23 05/23/24 History
##0
fluticasone propionate 115 2 puff inhalation R BID 12/15/23 05/23/24 History
mcg-salmeterol 21 mcg/actuation Lung/Breathing Issues
HFA inhaler (Advair HFA)
furosemide 80 mg tablet 80 mg PO BID@0800,1600 edema 12/15/23 05/23/24 History
lidocaine 5 % topical patch 2 patch topical DAILYPRN PRN B/L 12/15/23 05/23/24 History
shoulders
metolazone 2.5 mg tablet 2.5 mg PO SA Fluid 12/15/23 05/23/24 History
Retention/Swelling
metoprolol succinate 25 mg 25 mg PO NOON Blood Pressure 12/15/23 05/23/24 History
tablet,extended release 24 hr
miconazole nitrate 2 % topical 1 applic topical BIDPRN PRN B/L 12/15/23 05/23/24 History
powder (Miconazorb AF) breasts/groin
potassium chloride 20 mEq 40 meq PO SA Electrolyte Repletion 12/15/23 05/23/24 History
tablet,extended release(part/cryst)
therapeutic multivitamin 1 tab PO QPM Supplement 12/15/23 05/23/24 History
levalbuterol tartrate 45 2 inh inhalation R Q6HPRN PRN 02/13/24 05/23/24 History
mcg/actuation aerosol inhaler SOB/WHEEZING
(Xopenex HFA)
Lactobac no.2-Bifidobac no.1-S. 1 cap PO Q48H Supplement 02/14/24 05/23/24 History
thermo 112.5 billion cell capsule
(Visbiome)
ascorbic acid 125 mg-collagen, 1 cap PO QPM Supplement 05/23/24 05/23/24 History
hydrolyzed 740 mg capsule
(Collagen Plus Vitamin C)
doxycycline monohydrate 100 mg 100 mg PO BID Infection 05/23/24 05/23/24 History
capsule
ferrous sulfate 325 mg (65 mg 325 mg PO Q48H Supplement 05/23/24 05/23/24 History
iron) tablet (FeroSul)
isosorbide mononitrate 30 mg 30 mg PO NOON Heart 05/23/24 05/23/24 History
tablet,extended release 24 hr Disease/Condition
collagenase clostridium histo. 250 1 applic topical DAILY Infection 05/24/24 05/23/24 History
unit/gram topical ointment (Santyl)
honey 80 % topical gel (MediHoney 1 applic topical Q OTHER DAY 05/24/24 05/23/24 History
(honey)) Infection
Review of Systems
-
History Source: Patient
All other systems: Negative unless noted
Physical Exam
Vital Signs
Temp Pulse Resp BP Pulse Ox
97.3 F 64 20 109/58 95
05/24/24 11:49 05/24/24 11:40 05/24/24 11:40 05/24/24 11:40 05/24/24 11:40
General: NAD. AAOX3
HEENT: EOMI, MMM
Heart: SR with PVCs on tele. Regular with ectopy, no murmur
Lungs: Wearing oxygen at 2 L NC. No wheeze B/L.
Abd: +BS, ND
Ext: Chronic lymphedema changes. +3 B/L LE hard non-pitting edema
Neuro: No focal or lateralizing weakness
Skin: No rash
Lab Results
05/24/24 05:47
05/24/24 05:47
Rck-S-Kqoxyrkxvjw Pept 22219 pg/ml 05/23/24 20:04
Impression / Plan
-
PCP: Cris Avilez PA-C
Casing In Line Setter: Dr. Ott
Impression:
Admitted with hypotension 05/23/24
Hypothermia
Possible LE cellulitis
Nocturnal bradycardia
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
EF 45-50% by echo 10/01/23
ALMA on CKD 3b
Chronic hypoxic respiratory failure on home oxygen 2 L via NC
Frequent PVCs and bigeminy
Asthma/COPD
Chronic Lymphedema and chronic venous stasis changes
Hypertension
HLD
DM II
MARIAMA
Peripheral Neuropathy
History of DVT
Morbid Obesity
Medication and dietary non-adherence
Echo 08/22/21:�LVEF 53%, mild LVH, Mild MR, Mild 20/10 PRECIOUS 1.7cm2, mild AI
Echo 03/24/22: Technically limited study and patient was scanned in a wheelchair. No regional wall motion abnormalities are seen. LV ejection fraction is 53% by Phan's biplane method�of discs. Mild left ventricular hypertrophy. Normal diastolic
function. Mild mitral regurgitation is seen. This may be underestimated due to acoustic shadowing. Mild aortic stenosis. Peak/mean gradients across the aortic valve 20/10 mmHg. Using an LVOT diameter�of 2.0 cm the aortic valve by the Continuity
equation is calculated at 1.7 cm2. Mild aortic regurgitation.
Echo 12/18/2022:�EF 40-45%, global hypokinesis, moderate cLVH, stage II diastolic dysfunction, mild MS, mild MR, severely dilated LA, moderate with peak/mean gradients 45/20 mmHg, PRECIOUS 1.2 cm2, mild AR, mild TR, estimated PAP 42 mmHg,
Echo 03/16/2023: EF 45-50%, moderate cLVH, global hypokinesis, mild MR, mild to moderate with peak/mean gradients 21/12 mmHg, mild TR, estimated PAP 30-35 mmHg
ECHO 10/01/23: EF 45 to 50%, global hypokinesis, moderate to severe concentric LVH, stage II diastolic dysfunction, mildly dilated RV, mitral sclerosis, mild to moderate , peak/mean gradients 26/18 mmHg, mild AR, mild to moderate TR, PAP 60 to 65
mmHg
Plan:
-Patient came to [facility] yesterday with somnolence and was admitted with hypotension and cardiology is now consulted for history of CHF. Patient reports that she has been sleeping more than usual lately and slept an entire day without eating and
drinking like normal recently. She canceled PT at home this week because she was too tired to complete the activities. She has still been taking her usual dose of Lasix 80 mg twice daily. She has not noticed much of a change in her urine output.
No chest pain or palpitations. She has a history of recurrent heart failure admissions, but has not been admitted to for CHF in 6 months. She had an admission in January of this year for a foot wound and currently there is concern for LLE
cellulitis with Zosyn and vancomycin ordered. Blood cultures have also been ordered after an episode of hypothermia this morning. Her TFTs were normal.
-Agree with holding Lasix for now in the setting of ALMA and hypotension. Would avoid additional IVF bolus unless she has more symptomatic hypotension.
-Patient was taking Lasix 80 mg PO BID prior to admission
-Patient is below previous dry weight of 211 lbs back on last discharge 02/16/2024, but her proBNP is modestly elevated for her at 18,700.
-Check ECG, ordered. Tele reviewed by me and patient with longstanding frequent PVCs.
-[facility], asymptomatic PVCs. During one of her recent admissions she was changed to Toprol XL 25 mg daily which is now on hold due to hypotension.
-Outpatient dose of Imdur ER is on hold due to hypotension. It appears that Imdur was started in the past during an attempt to start nitrates and hydralazine for reduced EF and inability to take KAROLINA/ARB. Therefore, we will stop Imdur ER.
-Previously declined SGLT-2 due to risk of infection and she is almost bedbound and incontinent.
-Suspect nocturnal bradycardia is related to untreated MARIAMA as opposed to underlying conduction disease, regardless Toprol XL is on hold.
--- NOTE | 2024-05-24 16:09 | CM ---
CM met with pt bedside
Pt resides with her children, son and dtr in a 2SH with 1 CLOVIS
Pt has a first floor set up
Pt has a hospital bed
Pt notes she does not ambulate currently due to B/L foot wounds and need to stay off of them
She requires an assist to transfer into W/C which she self propels
Pt is current with VN and attend out wound center
Pt is on 2LO2 baseline through [employer]
She notes she has not used a cpap in many years- it had been recalled and she never replaced it
She notes her dtr is her informal caregiver and assists her with personal care tasks and transfer
Pt has Rx coverage through
PCP- Miguel Bella
Rx- Walker
Discharge Disposition- home, anticipate with [facility]
[2024-05-24] MEDS: ADVAIR HFA 115/21 MCG INHALER 2 PUFF INH (19:21)
[2024-05-24 19:41] LABS: Glucose - Point of Care 199 mg/dl (70-99)
[2024-05-24 21:31] LABS: Glucose - Point of Care 223 mg/dl (70-99)
[2024-05-24] MEDS: TYLENOL 650 MG PO (22:36)
[2024-05-24] MEDS: LIPITOR 20 MG PO (22:37)
[2024-05-25] VITALS (7 sets, daily range): BP systolic 109–147; BP diastolic 59–72; PULSE 65; O2SAT 95; BMI 41.7
[2024-05-25] MEDS: ZOSYN 50 IV (05:07)
[2024-05-25 05:43] LABS: Glucose - Point of Care 99 mg/dl (70-99)
[2024-05-25 06:41] LABS: % Basophils 1.2 % (0-2); % Eosinophils 2.3 % (0-6); % Immature Granulocytes 0.6 % (0-0.5); % Lymphocytes 7.3 % (20.5-51.1); % Monocytes 9.4 % (1.7-9.3); % Neutrophils 79.2 % (42.2-75.2); Absolute Basophils 0.1 10^3/uL (0-0.2); Absolute Eosinophils 0.2 10^3/uL (0-0.7); Absolute Lymphocytes 0.5 10^3/uL (1.2-3.4); Absolute Monocytes 0.7 10^3/uL (0.1-0.6); Absolute Neutrophils 5.5 10^3/uL (1.4-6.5); Hematocrit 31.7 % (37.0-47.0); Hemoglobin 10.3 g/dL (12.0-16.0); Mean Corp Hgb Conc. 32.5 g/dL (33.0-37.0); Mean Corpuscular Hgb 29.3 pg (27.0-31.0); Mean Corpuscular Volume 90.1 fL (81.0-99.0); Mean Platelet Volume 9.2 fL (7.4-10.4); Nucleated Red Blood Cells % 0 %; Platelet Count 238 10^3/uL (130-400); Red Blood Cell Count 3.52 10^6/uL (4.20-5.40); Red Cell Dist. Width 19.9 % (11.5-14.5); White Blood Cell Count 6.9 10^3/uL (4.8-10.8)
--- NOTE | 2024-05-25 06:46 | DOWNTIME ---
There was a [employer] Client Vendor [employer]st Downtime on 05/25/2024 from 0100 to 05/25/2024 at 0350. Downtime documentation of patient's care, including medication administrations, has been reconciled in the electronic record per guidelines. Refer to the
patient's paper chart under the miscellaneous tab to see printed paper medication records and downtime forms.
[2024-05-25 06:53] LABS: Vancomycin Random 19.4 ug/ml
[2024-05-25 07:12] LABS: ALT (SGPT) 18 U/L (0-35); AST (SGOT) 23 U/L (14-36); Albumin 2.8 g/dl (3.5-5.0); Alkaline Phosphatase 132 U/L (38-126); Blood Urea Nitrogen 56 mg/dl (7-17); Carbon Dioxide 25 mmol/L (22-30); Chloride 105 mmol/L (98-107); Estimated Creatinine Clearance 28 ml/min; Glucose 73 mg/dl (70-99); Potassium 5.2 mmol/L (3.5-5.1); Sodium 139 mmol/L (135-145); Total Bilirubin 0.7 mg/dl (0.2-1.3); Total Protein 6.9 g/dl (6.3-8.2); eGFR 30.13
[2024-05-25 07:30] LABS: Glucose - Point of Care 101 mg/dl (70-99)
--- NOTE | 2024-05-25 07:49 | PHA.VAN.FU ---
Vancomycin Assessment / Plan
- Assessment
Renal Function: Stable
WBC's are: WNL
In the past 24 hrs, patient has been: Afebrile
- Assessment - Therapeutic Drug Monitoring
Random Level: 19.4 - drawn ~18H after 2g loading dose
- Dosing Plan
Dosing by Level: Hold off on dosing today
- Monitoring Plan
Random Level: 05/26 0600
- Follow Up
Pharmacy will continue to follow.
Vancomycin Follow UP
- -
Patient Age: 78
Patient Sex: Female
Vancomycin Day #: 2
Indication: Skin And Soft Tissue
Requesting Provider: Dr. Garrido
Pertinent Antimicrobial Allergies:
ceftriaxone - rash
cefuroxime - facial droop and lip swelling; previously tolerated cefepime and cefazolin
levofloxacin - facial droop, rash, numbness
Height / Weight:
Height 5 ft
Actual Weight 96.8 kg
Pertinent Past Medical History: BMI ~41, Home O2, CKD, DM
- Vital Signs / Lab Results
Temp Pulse Resp BP Pulse Ox
97.8 F 60 18 120/62 96
05/25/24 04:00 05/25/24 04:00 05/25/24 04:00 05/25/24 04:00 05/25/24 04:00
Lab Results - Hematology
05/23/24 05/24/24 05/25/24
20:04 05:47 05:36
WBC 7.6 5.9 6.9
Lab Results - Chemistry
05/23/24 05/24/24 05/25/24
20:04 05:47 05:36
BUN 56 H 54 H 56 H
Creatinine 1.6 H 1.6 H 1.7 H
Estimated Creat Clear 31 29 28
Albumin 3.1 L 2.8 L
05/23/24
23:03
Lactic Acid 1.1
Lab Results - Urine
05/24/24 05/24/24 05/24/24
11:30 11:30 11:30
Urine Nitrite (Reflex) Cancelled Negative
Leukocyte Esterase Rfl Cancelled Negative
Therapeutic Drug Monitoring
Random Vancomycin 19.4 ug/ml 05/25/24 05:36
[2024-05-25] MEDS: ADVAIR HFA 115/21 MCG INHALER 2 PUFF INH ×2 (07:56→19:41)
[2024-05-25] MEDS: HEPARIN 5000 UNITS SC ×2 (09:10→16:02)
[2024-05-25] MEDS: HYDROPHOR 1 APPLIC TOPICAL (09:12)
[2024-05-25] MEDS: FEOSOL 325 MG PO (09:12)
[2024-05-25] MEDS: DESENEX/MITRAZOL/ZEASORB 1 APPLIC TOPICAL ×2 (09:12→20:40)
[2024-05-25] MEDS: ASPIR LOW (ENTERIC COATED) 81 MG PO (09:12)
[2024-05-25 10:32] LABS: Troponin I < 0.012 ng/ml
--- NOTE | 2024-05-25 10:54 | W.PN.CARDCBS ---
Today's Communication / Plan
-
Restart furosemide
Permanently stop isosorbide
Continue to hold metoprolol
Impression / Plan
-
PCP: Cris Avilez PA-C
Echocardiologist: Dr. Ott
Impression:
Admitted with hypotension 05/23/24
Hypothermia
Possible LE cellulitis
Nocturnal bradycardia
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
EF 45-50% by echo 10/01/23
ALMA on CKD 3b
Chronic hypoxic respiratory failure on home oxygen 2 L via NC
Frequent PVCs and bigeminy
Asthma/COPD
Chronic Lymphedema and chronic venous stasis changes
Hypertension
HLD
DM II
MARIAMA
Peripheral Neuropathy
History of DVT
Morbid Obesity
Medication and dietary non-adherence
Echo 08/22/21:�LVEF 53%, mild LVH, Mild MR, Mild 20/10 PRECIOUS 1.7cm2, mild AI
Echo 03/24/22: Technically limited study and patient was scanned in a wheelchair. No regional wall motion abnormalities are seen. LV ejection fraction is 53% by Phan's biplane method�of discs. Mild left ventricular hypertrophy. Normal diastolic
function. Mild mitral regurgitation is seen. This may be underestimated due to acoustic shadowing. Mild aortic stenosis. Peak/mean gradients across the aortic valve 20/10 mmHg. Using an LVOT diameter�of 2.0 cm the aortic valve by the Continuity
equation is calculated at 1.7 cm2. Mild aortic regurgitation.
Echo 12/18/2022:�EF 40-45%, global hypokinesis, moderate cLVH, stage II diastolic dysfunction, mild MS, mild MR, severely dilated LA, moderate with peak/mean gradients 45/20 mmHg, PRECIOUS 1.2 cm2, mild AR, mild TR, estimated PAP 42 mmHg,
Echo 03/16/2023: EF 45-50%, moderate cLVH, global hypokinesis, mild MR, mild to moderate with peak/mean gradients 21/12 mmHg, mild TR, estimated PAP 30-35 mmHg
ECHO 10/01/23: EF 45 to 50%, global hypokinesis, moderate to severe concentric LVH, stage II diastolic dysfunction, mildly dilated RV, mitral sclerosis, mild to moderate , peak/mean gradients 26/18 mmHg, mild AR, mild to moderate TR, PAP 60 to 65
mmHg
Plan:
She looks much better today. Blood pressure is improved.
She is no longer hypothermic, heart rate is still low 60s off metoprolol. Isosorbide has been discontinued, furosemide is on hold. She is now on vancomycin for presumed lower extremity cellulitis.
For now, will restart furosemide 80 mg twice daily which is her normal dose. Will continue to hold potassium which she was on as an outpatient for potassium of 5.2.
Will stay off isosorbide mononitrate.
Continue to hold metoprolol and possibly restart at some point.
Poor candidate for SGLT2 antagonist given risk of infection and incontinence
Progress Note - Echocardiologist
Subjective
Date of Service: May 25, 2024: 78-year-old woman admitted with hypotension, hypothermia, sleep apnea possible cellulitis, history of HFmrEF, lymphedema/anasarca DVT, morbid obesity, proBNP on admission 18,700
PMH: CHF with mildly reduced ejection fraction, CKD 3B, COPD/chronic hypoxemic respiratory failure on home O2, PVCs and bigeminy, lymphedema, chronic venous changes, hypertension, hyperlipidemia, type 2 diabetes obstructive sleep apnea, peripheral
neuropathy, remote DVT, morbid obesity
Allergies: Numerous see summary screen
Outpatient cardiac meds: Aspirin 81 mg a day, atorvastatin 20 mg a day, furosemide 80 mg p.o. twice daily, isosorbide 30 mg a day, lidocaine patch, metolazone once a week, metoprolol ER 25 mg daily, potassium 40 meq daily
Current meds:Advair, atorvastatin 20 mg at bedtime, iron, aspirin 81 mg a day, heparin, vancomycin. Furosemide 80 mg twice daily on hold, isosorbide mononitrate on hold, metolazone on hold, metoprolol ER 25 mg daily on hold, potassium 40 mill
COVID's on hold
120/62, pulse 64, resp rate 16, input and output incomplete, pulse 60, no acute distress, neck veins are reasonable, systolic murmur base to apex, lungs are relatively clear, edema is not bad, legs are wrapped,
Hemoglobin 10.3, white count 6.9, platelets 238, BUN 56, creatinine 1.7, potassium is pending, was 5.2 yesterday, proBNP was 18,700 May 23, 16,300 and November, it had been greater than 27,000 December 20, no recent troponin
Objective
Labs:
05/25/24 05:36
Labs
Hgb 10.3 g/dL (12.0-16.0) L 05/25/24 05:36
Hct 31.7 % (37.0-47.0) L 05/25/24 05:36
Plt Count 238 10^3/uL (130-400) 05/25/24 05:36
Sodium 139 mmol/L (135-145) 05/25/24 05:36
Potassium 5.2 mmol/L (3.5-5.1) H 05/25/24 05:36
BUN 56 mg/dl (7-17) H 05/25/24 05:36
Creatinine 1.7 mg/dL (0.6-1.0) H 05/25/24 05:36
Glucose 73 mg/dl (70-99) 05/25/24 05:36
Troponins
05/25/24
09:42
Troponin I < 0.012
Vital Signs and I&O:
Vital Signs
Temp Pulse Resp BP Pulse Ox
36.7 C 64 16 127/ 96
05/25/24 07:00 05/25/24 07:59 05/25/24 07:59 05/25/24 07:00 05/25/24 07:59
Vital Signs
Temp Pulse Resp BP Pulse Ox
36.7 C 64 16 127/67 96
05/25/24 07:00 05/25/24 07:59 05/25/24 07:59 05/25/24 07:00 05/25/24 07:59
Intake & Output
05/23/24 05/24/24 05/25/24 05/26/24
07:59 07:59 07:59 07:59
Intake Total 120 / 120 840 / 840
Balance 120 / 120 840 / 840
Physical Exam
Physical Exam
See above
--- NOTE | 2024-05-25 10:57 | PN.CDI ---
CDI
- -
CDI:
Physician Documentation Request
Admit Date: 05/23/24 22:39
Dear Doctor Hema,
Please review the following and provide your response in the progress notes.
Clinical Indicators:
The diagnosis of ALMA was documented on 05/23 H&P Update but is not consistently noted in subsequent documentation.
- 05/23 Update H&P 'ALMA due to overdiuresis: Cr 1.6'
- 'HX CKD 3B - b/l is 1.3'
- 05/24 Cardiology 'ALMA on CKD 3b'
Laboratory Tests
05/23/24 05/24/24 05/25/24
20:04 05:47 05:36
Creatinine 1.6 H 1.6 H 1.7 H
eGFR 32.40 32.40 30.13
Please clarify the following:
____ - ALMA was present on admission and is still being monitored, evaluated or treated
____ - ALMA was ruled out
____ - ALMA is still a likely, suspected, probable diagnosis
____ - Other
Use of terms such as suspected, likely, concern for, or probable (associated with a specific diagnosis that is being evaluated, monitored, or treated as if it exists) are acceptable and can be coded in the inpatient setting, when documented at the
time of discharge.
Thank you,
Jarret Cunha RN
CDI Specialist
Please use your independent medical judgment in providing your response.
--- NOTE | 2024-05-25 11:52 | W.PN.HOSP.TC ---
Today's Communication/Plan
-
cont Abx, plan for doxy upon d/c to complete course.
Follow Cr and BP and Lasix restarted
Assessment / Plan
Assessment / Plan
78yo F with PMHX of DM, DVT, HFmrF, chronic hypoxic respiratory failure on 2L O2, CKD, anemia, HTN, HLD, asthma, MARIAMA, obesity, sacral pressure injury, chronic lymphedema, Hx of R heel diabetic wound without OM came with hypotension for couple of
days and decreased urination for 1 week. Concern for early cellulitis of LLE and patient was started on Doxy couple of days prior to admission by PCP. Improved on Abx and holding of Lasix.Cardio restarting lasix
A/P:
#LLE cellulitis with wound and hypothermia
#Chronic b/l L lymphedema
woundcare
XR L foot without bone involvement
Vanco, stop Doxy while on Vanco
Bcx NTD
Podiatry consult: local wound care
arterial US: PAD without occlusion - outpatient follow up with podiatry as they already were working to get vascular studies. informed on results
#Hypotension
#Bradycardia
#Chronic HFmrF
most likely overdiuresis and infection combination
telemetry
hold Lasix and BB
Cardio consult: stop Imdur, BB, restart Lasix
TSH and cortisol WNL
#Bilateral sacrum and L posterior thigh wounds
Wound care
#elevated alk.phos
no abd pain
US RUQ is reasonable
#HX of DVT
not on AC
#Asthma
cont bronchodilators
#DM type 2 with nephropathy
Accuchecks, DM diet, Insulin SS
#HLD
#JOSUE
#Morbid obesity BMI 40.7
#MARIAMA intolernt of CPAP
cont home meds
Decrease calorie intake
DVT ppx hep
Full code
I have espent at least 59min reviewing the chart, test results, communication with consultants and direct patient care
Anticipated Discharge: 24 - 48 hours
Subjective/Interval History
-
Date of Service: May 25, 2024
Objective Data
-
Labs:
Laboratory Results
05/25/24 05/25/24
05:36 13:00
WBC 6.9
Hgb 10.3 L
Hct 31.7 L
Plt Count 238
Sodium 139
Potassium 5.2 H Pending
Chloride 105
Carbon Dioxide 25
BUN 56 H
Creatinine 1.7 H
Glucose 73
Calcium 8.0 L
Total Bilirubin 0.7
AST 23
ALT 18
Alkaline Phosphatase 132 H
Vital Signs:
Vital Signs
Temp Pulse Resp BP Pulse Ox
98.1 F 64 16 127/67 96
05/25/24 07:00 05/25/24 07:59 05/25/24 07:59 05/25/24 07:00 05/25/24 07:59
I&O
05/24/24 05/25/24 05/26/24
06:59 06:59 06:59
Intake Total 120 / 120 840 / 840
Balance 120 / 120 840 / 840
Review of Systems
-
History Source: Patient
All other systems: Reviewed and negative
Physical Exam
-
General: No Apparent Distress
HEENT: Normocephalic
Respiratory: Clear to Auscultation
GI: Soft, Nontender and Nondistended
Musculoskeletal: No Clubbing, No Cyanosis, Edema, Right Lower Extrem and Edema, Left Lower Extrem
Neuro: Awake, Alert, Oriented and AO x 3
Psych: Calm
[2024-05-25 12:13] LABS: Glucose - Point of Care 153 mg/dl (70-99)
[2024-05-25 14:52] LABS: Potassium 4.8 mmol/L (3.5-5.1)
--- NOTE | 2024-05-25 15:38 | CM ---
CM reviewed chart- ADC 1-2 days
SNF recs by therapy
Pt noted to be NWB/ toe touch for transfers
Bedside meeting with pt
She noted she would only agree to [facility] for SNF
Referral sent and pending in [facility]
Discharge Disposition- SNF vs home with [facility]
[2024-05-25] MEDS: LASIX 80 MG PO (16:02)
--- NOTE | 2024-05-25 16:08 | W.PN.UPDATE ---
Update Note
Progress Note Update
Ongoing stable wound right foot seen at bedside
NWB
Local wound care
Follow up with wound care center
[2024-05-25 16:51] LABS: Glucose - Point of Care 329 mg/dl (70-99)
[2024-05-25 21:16] LABS: Glucose - Point of Care 91 mg/dl (70-99)
[2024-05-25] MEDS: LIPITOR 20 MG PO (21:20)
[2024-05-26] VITALS (7 sets, daily range): BP systolic 99–131; BP diastolic 58–71; O2SAT 97; BMI 41.6
[2024-05-26] MEDS: HEPARIN 5000 UNITS SC ×3 (00:45→17:32)
[2024-05-26 07:19] LABS: Glucose - Point of Care 83 mg/dl (70-99)
[2024-05-26] MEDS: ADVAIR HFA 115/21 MCG INHALER 2 PUFF INH ×2 (08:08→19:38)
[2024-05-26 08:10] LABS: Blood Urea Nitrogen 51 mg/dl (7-17); Carbon Dioxide 25 mmol/L (22-30); Chloride 105 mmol/L (98-107); Estimated Creatinine Clearance 29 ml/min; Glucose 69 mg/dl (70-99); Potassium 4.7 mmol/L (3.5-5.1); Sodium 140 mmol/L (135-145)
[2024-05-26 08:11] LABS: Vancomycin Random 15.6 ug/ml
--- NOTE | 2024-05-26 08:32 | PHA.VAN.FU ---
Vancomycin Assessment / Plan
- Assessment
Renal Function: Stable
WBC's are: WNL
In the past 24 hrs, patient has been: Afebrile
- Assessment - Therapeutic Drug Monitoring
Random Level: 15.6 - drawn ~25H after previous level of 19.4
Calculated ke: 0.0086
Calculated half life (H): 80.8
With current ke, anticipated to maintain level > 10 for next 2 days
- Dosing Plan
Dosing by Level: Hold off on dosing today
- Monitoring Plan
Random Level: 05/27 06
- Follow Up
Pharmacy will continue to follow.
Vancomycin Follow UP
- -
Patient Age: 78
Patient Sex: Female
Vancomycin Day #: 3
Indication: Skin And Soft Tissue
Requesting Provider: Dr. Garrido
Pertinent Antimicrobial Allergies:
ceftriaxone - rash
cefuroxime - facial droop and lip swelling; previously tolerated cefepime and cefazolin
levofloxacin - facial droop, rash, numbness
Height / Weight:
Height 5 ft
Actual Weight 96.6 kg
Pertinent Past Medical History: BMI ~41, Home O2, CKD, DM
- Vital Signs / Lab Results
Temp Pulse Resp BP Pulse Ox
97.5 F 67 18 126/70 96
05/26/24 08:00 05/26/24 08:06 05/26/24 08:06 05/26/24 08:00 05/26/24 08:06
Lab Results - Hematology
05/23/24 05/24/24 05/25/24
20:04 05:47 05:36
WBC 7.6 5.9 6.9
Lab Results - Chemistry
05/23/24 05/24/24 05/25/24
20:04 05:47 05:36
BUN 56 H 54 H 56 H
Creatinine 1.6 H 1.6 H 1.7 H
Estimated Creat Clear 31 29 28
Albumin 3.1 L 2.8 L
05/26/24
07:02
BUN 51 H
Creatinine 1.6 H
Estimated Creat Clear 29
Albumin
05/23/24
23:03
Lactic Acid 1.1
Microbiology Results
05/24/24 10:46 Blood Culture - Preliminary
Blood/Venous No Growth in 24 hours- Final report to follow
05/24/24 09:51 Blood Culture - Preliminary
Blood/Venous No Growth in 24 hours- Final report to follow
Therapeutic Drug Monitoring
Random Vancomycin 15.6 ug/ml 05/26/24 07:02
[2024-05-26] MEDS: ASPIR LOW (ENTERIC COATED) 81 MG PO (08:42)
[2024-05-26] MEDS: DESENEX/MITRAZOL/ZEASORB 1 APPLIC TOPICAL ×2 (08:42→20:06)
[2024-05-26] MEDS: LASIX 80 MG PO (08:43)
[2024-05-26] MEDS: HYDROPHOR 1 APPLIC TOPICAL (08:43)
--- NOTE | 2024-05-26 09:06 | W.PN.HOSP.TC ---
Today's Communication/Plan
-
repeat BMP, pending final Cardio recommendations and PT/OT reassessment as patient improved and would like to go home instead of rehab. If rehab absolutely indicatedc - she is willing for [place] home
Assessment / Plan
Assessment / Plan
78yo F with PMHX of DM, DVT, HFmrF, chronic hypoxic respiratory failure on 2L O2, CKD, anemia, HTN, HLD, asthma, MARIAMA, obesity, sacral pressure injury, chronic lymphedema, Hx of R heel diabetic wound without OM came with hypotension for couple of
days and decreased urination for 1 week. Concern for early cellulitis of LLE and patient was started on Doxy couple of days prior to admission by PCP. Improved on Abx and holding of Lasix. Tolerated restarted Lasix
A/P:
#LLE cellulitis with wound and hypothermia
#Chronic b/l L lymphedema
wound care
XR L foot without bone involvement
Vanco, stop Doxy while on Vanco
Bcx NTD
Podiatry consult: local wound care
arterial US: PAD without occlusion - outpatient follow up with podiatry as they already were working to get vascular studies. informed on results
#Hypotension
#Bradycardia
#Chronic HFmrF
most likely overdiuresis and infection combination
telemetry
resolved while holding Lasix and BB
Cardio consult: stop Imdur permanently, BB on hold, restart Lasix
TSH and cortisol WNL
#Bilateral sacrum and L posterior thigh wounds
Wound care
#elevated alk.phos
no abd pain
US RUQ with cholelithiasis, no concern for cholecystitis
#HX of DVT
not on AC
#Asthma
cont bronchodilators
#DM type 2 with nephropathy
Accuchecks, DM diet, Insulin SS
#Hyperkalemia
resolved with lasix
#HLD
#JOSUE
#Morbid obesity BMI 40.7
#MARIAMA intolernt of CPAP
cont home meds
Decrease calorie intake
DVT ppx hep
Full code
I have spent at least 36min reviewing the chart, test results, communication with consultants and direct patient care
Anticipated Discharge: Within 24 hours
Subjective/Interval History
-
Date of Service: May 26, 2024
Objective Data
-
Labs:
Laboratory Results
05/26/24
07:02
Sodium 140
Potassium 4.7
Chloride 105
Carbon Dioxide 25
BUN 51 H
Creatinine 1.6 H
Glucose 69 L
Calcium 8.0 L
Vital Signs:
Vital Signs
Temp Pulse Resp BP Pulse Ox
97.5 F 67 18 126/70 96
05/26/24 08:00 05/26/24 08:06 05/26/24 08:06 05/26/24 08:00 05/26/24 08:06
I&O
05/25/24 05/26/24 05/27/24
06:59 06:59 06:59
Intake Total 840 / 840
Balance 840 / 840
Review of Systems
-
History Source: Patient
All other systems: Reviewed and negative
Physical Exam
-
General: No Apparent Distress
HEENT: Normocephalic
Respiratory: Clear to Auscultation
GI: Soft, Nontender and Nondistended
Musculoskeletal: No Clubbing, No Cyanosis and No Edema
Neuro: Awake, Alert, Oriented and AO x 3
Psych: Calm
[2024-05-26 10:10] LABS: ALT (SGPT) 19 U/L (0-35); AST (SGOT) 22 U/L (14-36); Albumin 2.8 g/dl (3.5-5.0); Alkaline Phosphatase 124 U/L (38-126); Direct Bilirubin 0.4 mg/dl (0.0-0.4); Total Bilirubin 0.7 mg/dl (0.2-1.3); Total Protein 6.8 g/dl (6.3-8.2)
[2024-05-26 11:14] LABS: Magnesium 2.5 mg/dl (1.6-2.3)
[2024-05-26 12:34] LABS: Glucose - Point of Care 133 mg/dl (70-99)
--- NOTE | 2024-05-26 16:00 | PTCARENOTE ---
pt with frequent PVCs. MD and cardiology made aware via TT. will continue to monitor.
--- NOTE | 2024-05-26 16:13 | W.PN.CARDCBS ---
Today's Communication / Plan
-
No change in cardiac regimen at present
Stay off metoprolol and isosorbide
Continue furosemide 80 mg twice daily by mouth, decide on dosing at discharge
Impression / Plan
-
PCP: Cris Avilez PA-C
Restrictive Preparation Operator: Dr. Ott
Impression:
Admitted with hypotension 05/23/24
Hypothermia
Possible LE cellulitis
Nocturnal bradycardia
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
EF 45-50% by echo 10/01/23
ALMA on CKD 3b
Chronic hypoxic respiratory failure on home oxygen 2 L via NC
Frequent PVCs and bigeminy
Asthma/COPD
Chronic Lymphedema and chronic venous stasis changes
Hypertension
HLD
DM II
MARIAMA
Peripheral Neuropathy
History of DVT
Morbid Obesity
Medication and dietary non-adherence
Echo 08/22/21:�LVEF 53%, mild LVH, Mild MR, Mild 20/10 PRECIOUS 1.7cm2, mild AI
Echo 03/24/22: Technically limited study and patient was scanned in a wheelchair. No regional wall motion abnormalities are seen. LV ejection fraction is 53% by Phan's biplane method�of discs. Mild left ventricular hypertrophy. Normal diastolic
function. Mild mitral regurgitation is seen. This may be underestimated due to acoustic shadowing. Mild aortic stenosis. Peak/mean gradients across the aortic valve 20/10 mmHg. Using an LVOT diameter�of 2.0 cm the aortic valve by the Continuity
equation is calculated at 1.7 cm2. Mild aortic regurgitation.
Echo 12/18/2022:�EF 40-45%, global hypokinesis, moderate cLVH, stage II diastolic dysfunction, mild MS, mild MR, severely dilated LA, moderate with peak/mean gradients 45/20 mmHg, PRECIOUS 1.2 cm2, mild AR, mild TR, estimated PAP 42 mmHg,
Echo 03/16/2023: EF 45-50%, moderate cLVH, global hypokinesis, mild MR, mild to moderate with peak/mean gradients 21/12 mmHg, mild TR, estimated PAP 30-35 mmHg
ECHO 10/01/23: EF 45 to 50%, global hypokinesis, moderate to severe concentric LVH, stage II diastolic dysfunction, mildly dilated RV, mitral sclerosis, mild to moderate , peak/mean gradients 26/18 mmHg, mild AR, mild to moderate TR, PAP 60 to 65
mmHg
Plan:
She remains stable from a cardiac standpoint, with an adequate heart rate and adequate blood pressure, now off metoprolol and isosorbide. Presumably antibiotics for cellulitis of value.
Her outpatient furosemide is 80 mg once daily, although she has been consistently prescribed 80 mg twice daily. Will need to resolve this at discharge. I would favor 80 mg twice daily, though she may not be willing to comply.
Telemetry is satisfactory. Blood pressure is reasonable.
Creatinine is stable during this hospital stay 1.6, with baseline of 1.2-1.3
Tentatively plan on discharge in a.m. from cardiac standpoint
We will arrange for cardiac follow-up, last seen in our office in December.
Progress Note - Restrictive Preparation Operator
Subjective
Date of Service: May 26, 2024:
78-year-old woman admitted with hypotension, hypothermia, sleep apnea possible cellulitis, history of HFmrEF, lymphedema/anasarca DVT, morbid obesity, proBNP on admission 18,700
PMH: CHF with mildly reduced ejection fraction, CKD 3B, COPD/chronic hypoxemic respiratory failure on home O2, PVCs and bigeminy, lymphedema, chronic venous changes, hypertension, hyperlipidemia, type 2 diabetes obstructive sleep apnea, peripheral
neuropathy, remote DVT, morbid obesity
Allergies: Numerous see summary screen
Outpatient cardiac meds: Aspirin 81 mg a day, atorvastatin 20 mg a day, furosemide 80 mg p.o. twice daily, isosorbide 30 mg a day, lidocaine patch, metolazone once a week, metoprolol ER 25 mg daily, potassium 40 meq daily. furosemide at discharge in
January was 80 mg twice daily and metolazone 2.5 mg daily
Current meds: Atorvastatin 20 mg a day, iron, aspirin 81 mg a day, subcu heparin, furosemide 80 mg twice daily
Currently, no new complaints. Although all records states she has been on furosemide 80 mg twice daily, she says she only takes 80 mg a day, possibly on the advice of her primary. Metolazone is once a week.
124/63, pulse 65, afebrile, respiratory rate 18, weight is 96.6 kg, unchanged from yesterday, weight was 95.8 kg at discharge in January, head neck exam unremarkable, lungs are clear, cardiac exam is notable for a relatively bradycardic rhythm,
occasional extrasystoles, JVD okay abdomen obese, anasarca with chronic skin changes right leg greater than left, clean dressings intact, neuro nonfocal
BUN and creatinine are 51 and 1.6 stable, baseline 1.2-1.3, potassium is 4.7, proBNP was 18,700 at admission, greater than 27,000 in November, in September was 11,900, 7600 in June 2023
Objective
Labs:
05/25/24 05:36
05/26/24 07:02
Labs
Hgb 10.3 g/dL (12.0-16.0) L 05/25/24 05:36
Hct 31.7 % (37.0-47.0) L 05/25/24 05:36
Plt Count 238 10^3/uL (130-400) 05/25/24 05:36
Sodium 140 mmol/L (135-145) 05/26/24 07:02
Potassium 4.7 mmol/L (3.5-5.1) 05/26/24 07:02
BUN 51 mg/dl (7-17) H 05/26/24 07:02
Creatinine 1.6 mg/dL (0.6-1.0) H 05/26/24 07:02
Glucose 69 mg/dl (70-99) L 05/26/24 07:02
Troponins
05/25/24
09:42
Troponin I < 0.012
Vital Signs and I&O:
Vital Signs
Temp Pulse Resp BP Pulse Ox
36.2 C 65 18 124/63 91
05/26/24 12:46 05/26/24 12:46 05/26/24 12:46 05/26/24 12:46 05/26/24 12:46
Vital Signs
Temp Pulse Resp BP Pulse Ox
36.2 C 65 18 124/63 91
05/26/24 12:46 05/26/24 12:46 05/26/24 12:46 05/26/24 12:46 05/26/24 12:46
Intake & Output
05/24/24 05/25/24 05/26/24 05/27/24
07:59 07:59 07:59 07:59
Intake Total 120 / 120 840 / 840
Balance 120 / 120 840 / 840
Physical Exam
Physical Exam
See above
[2024-05-26] MEDS: LASIX PO (17:28)
[2024-05-26 17:30] LABS: Glucose - Point of Care 99 mg/dl (70-99)
[2024-05-26] MEDS: LIPITOR 20 MG PO (21:34)
[2024-05-27] MEDS: HEPARIN 5000 UNITS SC ×2 (00:49→08:45)
[2024-05-27 03:40] VITALS: BP 137/67
[2024-05-27 06:00] VITALS: BMI 42.2
[2024-05-27] MEDS: ADVAIR HFA 115/21 MCG INHALER 2 PUFF INH (07:50)
[2024-05-27 08:06] VITALS: BP 134/68
[2024-05-27 08:06] LABS: Glucose - Point of Care 79 mg/dl (70-99)
[2024-05-27 08:24] LABS: Vancomycin Random 13.4 ug/ml
[2024-05-27 08:36] LABS: Blood Urea Nitrogen 51 mg/dl (7-17); Calcium 7.9 mg/dl (8.4-10.2); Carbon Dioxide 27 mmol/L (22-30); Chloride 106 mmol/L (98-107); Estimated Creatinine Clearance 31 ml/min; Glucose 71 mg/dl (70-99); Potassium 4.5 mmol/L (3.5-5.1); Sodium 141 mmol/L (135-145); eGFR 35.01
[2024-05-27] MEDS: ASPIR LOW (ENTERIC COATED) 81 MG PO (08:45)
[2024-05-27] MEDS: LASIX 80 MG PO (08:45)
[2024-05-27] MEDS: FEOSOL 325 MG PO (08:47)
[2024-05-27] MEDS: DESENEX/MITRAZOL/ZEASORB 1 APPLIC TOPICAL (08:49)
[2024-05-27] MEDS: HYDROPHOR 1 APPLIC TOPICAL (08:50)
--- NOTE | 2024-05-27 09:19 | W.PN.CARDCBS ---
Today's Communication / Plan
-
po lasix 80mg BID with metolazone 2.5mg Saturdays
stop imdur, toprol
OP cardiac follow up arranged
Impression / Plan
-
PCP: Cris Avilez PA-C
Treating Inspector: Dr. Ott
Impression:
Admitted with hypotension 05/23/24
Hypothermia
Possible LE cellulitis
Nocturnal bradycardia
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
EF 45-50% by echo 10/01/23
ALMA on CKD 3b
Chronic hypoxic respiratory failure on home oxygen 2 L via NC
Frequent PVCs and bigeminy
Asthma/COPD
Chronic Lymphedema and chronic venous stasis changes
Hypertension
HLD
DM II
MARIAMA
Peripheral Neuropathy
History of DVT
Morbid Obesity
Medication and dietary non-adherence
Echo 08/22/21:�LVEF 53%, mild LVH, Mild MR, Mild 20/10 PRECIOUS 1.7cm2, mild AI
Echo 03/24/22: Technically limited study and patient was scanned in a wheelchair. No regional wall motion abnormalities are seen. LV ejection fraction is 53% by Phan's biplane method�of discs. Mild left ventricular hypertrophy. Normal diastolic
function. Mild mitral regurgitation is seen. This may be underestimated due to acoustic shadowing. Mild aortic stenosis. Peak/mean gradients across the aortic valve 20/10 mmHg. Using an LVOT diameter�of 2.0 cm the aortic valve by the Continuity
equation is calculated at 1.7 cm2. Mild aortic regurgitation.
Echo 12/18/2022:�EF 40-45%, global hypokinesis, moderate cLVH, stage II diastolic dysfunction, mild MS, mild MR, severely dilated LA, moderate with peak/mean gradients 45/20 mmHg, PRECIOUS 1.2 cm2, mild AR, mild TR, estimated PAP 42 mmHg,
Echo 03/16/2023: EF 45-50%, moderate cLVH, global hypokinesis, mild MR, mild to moderate with peak/mean gradients 21/12 mmHg, mild TR, estimated PAP 30-35 mmHg
ECHO 10/01/23: EF 45 to 50%, global hypokinesis, moderate to severe concentric LVH, stage II diastolic dysfunction, mildly dilated RV, mitral sclerosis, mild to moderate , peak/mean gradients 26/18 mmHg, mild AR, mild to moderate TR, PAP 60 to 65
mmHg
Plan:
-She reports feeling pretty well.
-Blood pressure/HRs stable since discontinuing metoprolol and isosorbide. Continue antibiotics for treatment of cellulitis per primary service
-Creatinine stable at 1.5. Would continue p.o. Lasix 80 mg twice daily
-Remains in sinus rhythm with PVCs, which are chronic. Potassium stable
-OP cardiac follow up arranged
-ok with DC from cardiac standpoint today
-d/w hospitalist via TT
Progress Note - Treating Inspector
Subjective
Date of Service: May 27, 2024
reports feeling well. no dizziness/lightheadedness
Objective
Labs:
05/25/24 05:36
05/27/24 07:18
Labs
Hgb 10.3 g/dL (12.0-16.0) L 05/25/24 05:36
Hct 31.7 % (37.0-47.0) L 05/25/24 05:36
Plt Count 238 10^3/uL (130-400) 05/25/24 05:36
Sodium 141 mmol/L (135-145) 05/27/24 07:18
Potassium 4.5 mmol/L (3.5-5.1) 05/27/24 07:18
BUN 51 mg/dl (7-17) H 05/27/24 07:18
Creatinine 1.5 mg/dL (0.6-1.0) H 05/27/24 07:18
Glucose 71 mg/dl (70-99) 05/27/24 07:18
Troponins
05/25/24
09:42
Troponin I < 0.012
Vital Signs and I&O:
Vital Signs
Temp Pulse Resp BP Pulse Ox
97.6 F 72 16 134/68 97
05/27/24 08:06 05/27/24 08:06 05/27/24 08:06 05/27/24 08:06 05/27/24 08:06
Vital Signs
Temp Pulse Resp BP Pulse Ox
97.6 F 72 16 134/68 97
05/27/24 08:06 05/27/24 08:06 05/27/24 08:06 05/27/24 08:06 05/27/24 08:06
Intake & Output
05/25/24 05/26/24 05/27/24 05/28/24
07:59 07:59 07:59 07:59
Intake Total 840 / 840 600 / 600
Balance 840 / 840 600 / 600
Physical Exam
Physical Exam
GEN: No distress, awake, alert, oriented x3. on supp O2. obese
HEENT: supple, anicteric, mmm, eomi
LUNGS: CTA anterolaterally, no wheezes
CV: Reg with ectopy, S1/S2, 1/6 syst LSB
ABD: soft, BS+, NT/ND
EXT: No cyanosis, clubbing. 3 + edema with chronic leg changes
NEURO: Gross non-focal
SKIN: Warm, pink, dry. No rash
--- NOTE | 2024-05-27 09:20 | W.PN.HOSP.TC ---
Today's Communication/Plan
-
DC
Assessment / Plan
Assessment / Plan
78yo F with PMHX of DM, DVT, HFmrF, chronic hypoxic respiratory failure on 2L O2, CKD, anemia, HTN, HLD, asthma, MARIAMA, obesity, sacral pressure injury, chronic lymphedema, Hx of R heel diabetic wound without OM came with hypotension for couple of
days and decreased urination for 1 week. Concern for early cellulitis of LLE and patient was started on Doxy couple of days prior to admission by PCP. Improved on Abx and holding of Lasix. Tolerated restarted Lasix with stable renal function. As per
cardiology: stop Imdur permanently, BB on hold. Feeling on baseline and medically stable for d/c home as per patient request.
A/P:
#LLE cellulitis with wound and hypothermia
#Chronic b/l L lymphedema
wound care
XR L foot without bone involvement
Vanco, stop Doxy while on Vanco
Bcx NTD
Podiatry consult: local wound care
arterial US: PAD without occlusion - outpatient follow up with podiatry as they already were working to get vascular studies. informed on results
#Hypotension
#Bradycardia
#Chronic HFmrF
most likely overdiuresis and infection combination
telemetry
resolved while holding Lasix and BB
Cardio consult: stop Imdur permanently, BB on hold, restart Lasix
TSH and cortisol WNL
#Bilateral sacrum and L posterior thigh wounds
Wound care
#elevated alk.phos
no abd pain
US RUQ with cholelithiasis, no concern for cholecystitis
#HX of DVT
not on AC
#Asthma
cont bronchodilators
#DM type 2 with nephropathy
Accuchecks, DM diet, Insulin SS
#Hyperkalemia
resolved with lasix
#HLD
#JOSUE
#Morbid obesity BMI 40.7
#MARIAMA intolernt of CPAP
cont home meds
Decrease calorie intake
DVT ppx hep
Full code
I have spent at least 36min reviewing the chart, test results, communication with consultants and direct patient care
Anticipated Discharge: Today
Subjective/Interval History
-
Date of Service: May 27, 2024
Objective Data
-
Labs:
Laboratory Results
05/27/24
07:18
Sodium 141
Potassium 4.5
Chloride 106
Carbon Dioxide 27
BUN 51 H
Creatinine 1.5 H
Glucose 71
Calcium 7.9 L
Vital Signs:
Vital Signs
Temp Pulse Resp BP Pulse Ox
97.6 F 72 16 134/68 97
05/27/24 08:06 05/27/24 08:06 05/27/24 08:06 05/27/24 08:06 05/27/24 08:06
I&O
05/26/24 05/27/24 05/28/24
06:59 06:59 06:59
Intake Total 600 / 600
Balance 600 / 600
Review of Systems
-
History Source: Patient
All other systems: Reviewed and negative
Physical Exam
-
General: No Apparent Distress
HEENT: Normocephalic
Cardiac: Irregular Rhythm
GI: Soft, Nontender and Nondistended
Musculoskeletal: No Clubbing, No Cyanosis and No Edema
Psych: Calm
--- NOTE | 2024-05-27 09:27 | W.DCSUMMARY ---
Addendum entered and electronically signed by Norbert Garrido MD 05/27/24 10:23:
Elevated Cr with CKD baseline Cr 1.1-1.4, not meeting criteria for ALMA
Addendum entered and electronically signed by Norbert Garrido MD 05/27/24 09:55:
PAtient agreeable for [facility] rehab, who has accepted the patient and currently awaiting for the bed
Original Note:
Discharge Summary
Discharge Data
Date of Admission: 05/23/24
Date of Discharge: 05/27/24
-
Pending Results: No
Hospital Course
78yo F with PMHX of DM, DVT, HFmrF, chronic hypoxic respiratory failure on 2L O2, CKD, anemia, HTN, HLD, asthma, MARIAMA, obesity, sacral pressure injury, chronic lymphedema, Hx of R heel diabetic wound without OM came with hypotension for couple of
days and decreased urination for 1 week. Concern for early cellulitis of LLE and patient was started on Doxy couple of days prior to admission by PCP. Improved on Abx and holding of Lasix. Tolerated restarted Lasix with stable renal function. As per
cardiology: stop Imdur permanently, BB on hold. Feeling on baseline and medically stable for d/c home as per patient request. Completed 4 days of Vanco, reasonabl;e to complete oral Doxy at home as already Rx
I have spent at least 36min reviewing the chart, test results, communication with consultants and direct patient care
Patient was managed for:
#LLE cellulitis with wound and hypothermia
#Chronic b/l L lymphedema
#Hypotension
#Bradycardia
#Chronic HFmrF
#Bilateral sacrum and L posterior thigh wounds
#elevated alk.phos
#HX of DVT
#Asthma
#DM type 2 with nephropathy
#Hyperkalemia
#HLD
#JOSUE
#Morbid obesity BMI 40.7
#MARIAMA intolernt of CPAP
Discharge Plan
-
Patient Disposition: Home with Home Care
Discharge Diagnosis/Procedures: Hypotension
Diet: Low Sodium
Activity: As tolerated
Driving Restrictions: As prior to admission
Referrals:
Miguel Bella, DO [Family Provider] -
Naomi Childers PA-C [Specified Professional Personl] - 06/09/24 3:00 pm (You have a cardiology follow up appointment at the [facility]. Please call with questions. )
Eunice Paiz DPM [Specified Professional Personl] - in less than 1 week
Additional Discharge Medication Instructions: STOP imdur (isosorbide) and toprol (metoprolol)
Prescriptions:
Continued
atorvastatin 20 mg Tablet
20 mg PO HS
miconazole nitrate [Miconazorb AF] 2 % Powder
1 applic TOPICAL BIDPRN PRN (Reason: B/L breasts/groin)
therapeutic multivitamin Tablet
1 tab PO QPM
Patient Comments:
12/15/2023, daughter unsure whether morning or evening vitamin.
aspirin 81 mg Tablet,Delayed Release (Dr/Ec)
81 mg PO DAILY
acetaminophen 650 mg Tablet Extended Release
1,300 mg PO BIDPRN PRN (Reason: mild pain)
potassium chloride 20 mEq Tablet,Er Particles/Crystals
40 meq PO SA
furosemide 80 mg Tablet
80 mg PO BID@0800,1600
lidocaine 5 % Adhesive Patch,Medicated
2 patch TOPICAL DAILYPRN PRN (Reason: B/L shoulders)
Patient Comments:
12/15/2023, 1 patch per shoulder dailyprn.
ammonium lactate 12 % Cream
1 applic TOPICAL BID
Patient Comments:
12/15/2023, wound care.
fluticasone propion-salmeterol [Advair HFA] 115-21 mcg/actuation Hfa Aerosol Inhaler
2 puff INHALATION R BID
Patient Comments:
12/15/2023, pt. cannot have generic form per daughter; pt. reacts negatively to it.
diclofenac sodium 1 % Gel
2 g TOPICAL QIDPRN PRN (Reason: B/L knees) Qty: 0
levalbuterol tartrate [Xopenex HFA] 45 mcg/actuation Hfa Aerosol Inhaler
2 inh INHALATION R Q6HPRN PRN (Reason: SOB/WHEEZING)
Visbiome 112.5 billion cell capsule
1 cap PO Q48H
doxycycline monohydrate 100 mg Capsule
100 mg PO BID
Patient Comments:
05/23/24: to take for 10 days filled 05/18/24
Collagen Plus Vitamin C 125-740 mg Capsule
1 cap PO QPM
ferrous sulfate [FeroSul] 325 mg (65 mg iron) tablet
325 mg PO Q48H
Santyl 250 unit/gram ointment
1 applic topical DAILY
MediHoney (honey) 80 % gel
1 applic topical Q OTHER DAY
Discontinued
metolazone 2.5 mg Tablet
2.5 mg PO SA
metoprolol succinate 25 mg Tablet Extended Release 24 Hr
25 mg PO NOON
isosorbide mononitrate 30 mg Tablet Extended Release 24 Hr
30 mg PO NOON
Discharge Orders:
Discharge Patient (As Directed); Ordered 05/27/24
Ordered By: Norbert Garrido
Discharge Date and Time
Print Language: HAITIAN
[2024-05-27 11:15] VITALS: BP 140/71
--- NOTE | 2024-05-27 11:18 | CM ---
Plan: Discharge to [facility] today via ambulance
Report # [phone]
[2024-05-27 11:46] LABS: Glucose - Point of Care 110 mg/dl (70-99)
[2024-05-27 12:40] LABS: COVID-19 Antigen Negative (Negative)
== END 2024-05-27 13:19 | DRG 602 ==
LOC: 3 WEST ACU 22:39
PROVIDERS: Internal Medicine Cardiovascular Disease; Physician Assistant Medical; ADMITTING PHYSICIAN Internal Medicine; ATTENDING PHYSICIAN Internal Medicine; CONSULT PHYSICIAN Internal Medicine Cardiovascular Disease; CONSULT PHYSICIAN Student in an Organized Health Care Education/Training Program; EMERGENCY PHYSICIAN Student in an Organized Health Care Education/Training Program; FAMILY PHYSICIAN Family Medicine
DX: L03.116 Cellulitis of left lower limb (principal); G93.41 Metabolic encephalopathy; L89.153 Pressure ulcer of sacral region, stage 3; L89.613 Pressure ulcer of right heel, stage 3; I50.22 Chronic systolic (congestive) heart failure; I13.0 Hypertensive heart and chronic kidney disease with heart failure and stage 1 through stage 4 chronic kidney disease, or unspecified chronic kidney disease; J96.11 Chronic respiratory failure with hypoxia; Z68.41 Body mass index [BMI] 40.0-44.9, adult; R53.1 Weakness; G47.33 Obstructive sleep apnea (adult) (pediatric); N18.32 Chronic kidney disease, stage 3b; I89.0 Lymphedema, not elsewhere classified; J44.9 Chronic obstructive pulmonary disease, unspecified; I95.9 Hypotension, unspecified; I49.3 Ventricular premature depolarization; R68.0 Hypothermia, not associated with low environmental temperature; E78.00 Pure hypercholesterolemia, unspecified; I87.8 Other specified disorders of veins; E11.22 Type 2 diabetes mellitus with diabetic chronic kidney disease; D63.1 Anemia in chronic kidney disease; E11.40 Type 2 diabetes mellitus with diabetic neuropathy, unspecified; R74.8 Abnormal levels of other serum enzymes; E87.5 Hyperkalemia; E66.01 Morbid (severe) obesity due to excess calories; Z11.52 Encounter for screening for COVID-19; Z99.81 Dependence on supplemental oxygen; Z91.119 Patient's noncompliance with dietary regimen due to unspecified reason; Z91.148 Patient's other noncompliance with medication regimen for other reason; Z86.718 Personal history of other venous thrombosis and embolism; Z87.01 Personal history of pneumonia (recurrent); Z83.3 Family history of diabetes mellitus; Z91.199 Patient's noncompliance with other medical treatment and regimen due to unspecified reason; Z82.49 Family history of ischemic heart disease and other diseases of the circulatory system; Z88.8 Allergy status to other drugs, medicaments and biological substances; Z88.6 Allergy status to analgesic agent; Z88.1 Allergy status to other antibiotic agents; Z91.040 Latex allergy status; Z79.82 Long term (current) use of aspirin
CPT/HCPCS: 71046; 73620; 76700; 80048; 80053; 80076; 80202; 81003; 82533; 82805; 82962; 83036; 83605; 83735; 83880; 84132; 84145; 84443; 84484; 85025; 85027; 87040; 87811; 93005; 93922; 93925; 94640; 96360; 97163; 97167; 97530; 99213; 99285

== ENCOUNTER 2024-06-27 19:11 | Inpatient (IN) | payer MEDICARE, OTHER, SELFPAY ==
[2024-06-27] VITALS (10 sets, daily range): BP systolic 95–128; BP diastolic 43–78; BMI 41.4; BMI 39.5
[2024-06-27 15:03] LABS: % Basophils 0.9 % (0-2); % Eosinophils 1.7 % (0-6); % Immature Granulocytes 0.4 % (0-0.5); % Monocytes 10.1 % (1.7-9.3); % Neutrophils 79.9 % (42.2-75.2); Absolute Basophils 0.1 10^3/uL (0-0.2); Absolute Eosinophils 0.1 10^3/uL (0-0.7); Absolute Lymphocytes 0.5 10^3/uL (1.2-3.4); Absolute Monocytes 0.8 10^3/uL (0.1-0.6); Absolute Neutrophils 6.2 10^3/uL (1.4-6.5); Hematocrit 37.1 % (37.0-47.0); Hemoglobin 11.4 g/dL (12.0-16.0); Mean Corp Hgb Conc. 30.7 g/dL (33.0-37.0); Mean Corpuscular Volume 91.2 fL (81.0-99.0); Mean Platelet Volume 9.6 fL (7.4-10.4); Nucleated Red Blood Cells % 0 %; Platelet Count 210 10^3/uL (130-400); Red Blood Cell Count 4.07 10^6/uL (4.20-5.40); Red Cell Dist. Width 19.1 % (11.5-14.5); White Blood Cell Count 7.8 10^3/uL (4.8-10.8)
[2024-06-27 15:20] LABS: Calcium 7.8 mg/dl (8.4-10.2); Carbon Dioxide 37 mmol/L (22-30); Chloride 92 mmol/L (98-107); Estimated Creatinine Clearance 40 ml/min; Glucose 129 mg/dl (70-99); Sodium 138 mmol/L (135-145); eGFR 41.57
[2024-06-27 15:28] LABS: Blood Urea Nitrogen 149 mg/dl (7-17)
[2024-06-27 15:33] LABS: NT-proBNP 15200 pg/ml
--- NOTE | 2024-06-27 15:47 | ED.GENMED ---
History of Present Illness
General
Chief Complaint: Breathing Problem
Source: patient
Time Seen by Provider: 06/27/24 15:23
History of Present Illness
History of Present Illness:
78-year-old female presents to the emergency room complaining of shortness of breath. Patient resides at [facility] where she is receiving prison and rehab after hospitalization here at [place] about a month ago. Patient feels short
of breath at rest. It was worse earlier than it is now. Patient has a history of CHF as well as COPD and is on 2 L of oxygen chronically. Looking at her medication list she is on a significant dose of Lasix 80 mg twice a day as well as
metolazone. Patient does not feel her legs are any more swollen than normal which is quite swollen at baseline. No known fever.
Past History
Past History
ED Past Medical History: Arrthythmia (Frequent PVCs), Asthma, CHF, COPD, HTN, Hypercholesterolemia, NIDDM, Other (Chronic lymphedema, Migraines, PNA, DVT, Anemia) and Other (Right lower extremity DVT October 2019)
ED Past Surgical History: Gynecological (Several D&Cs, miscarriage), Tonsilectomy and Other (Cancerous mass removed from right leg 20 years ago. Breast mass removed noncancerous. cataracts, )
Social History
Tobacco: Non-smoker
Alcohol: None
Drug: None
Personal:
Living: assisted living (She lives with her family but she is in rehab at this time at [facility])
Employment: Retired
Family History
Family History: Other (Noncontributory)
Phy Exam
Physical Exam
Physical Exam:
General: Awake, Alert, Oriented X3. No acute distress.
Vitals: Tachypneic, afebrile
Head: Atraumatic
Eyes: Pupils equal, EOMI
Throat: Airway intact, no exudates
Neck: Trachea midline
Lungs: Crackles bilaterally
Heart: Regular rate, no murmurs
Abd: Soft, Nontender, No pulsatile mass
Neuro: Nonfocal
Skin: Warm, dry, no rash
Extremities: pulses equal b/l, significant swelling bilateral lower extremities with changes of chronic venous stasis. Edema seems nonpitting.
Scores
Heart Failure Risk
Heart Failure Risk Score: Yes
History of Stroke or TIA: No
History of intubation for respiratory distress: No
Heart rate on ED arrival >/= 110: Yes
SaO2 <90% on arrival on room air: Yes
HR >/=110 during 3min walk test (or too ill to perform test): Yes
ECG has acute ischemic changes: No
Urea >/=12mmol/L (BUN 33.6mg/dL): Yes
Serum CO2>/=35mmol/L: Yes
Troponin I or T elevated to DC Level (0.4mg/dL): No
NT-proBNP >/=5,000ng/L (5,000pg/ml): Yes
HF Risk Score: 7
Admission Status: VERY HIGH RISK 69.8% Consider admission to hospital
Course
Orders/Labs/Results
Orders:
Orders
06/27/24 14:46
Electrocardiogram (*1) Urgent
Reason for Study: Shortness of Breath
EKG- Treatment ONCE
06/27/24 14:47
Basic Metabolic Panel Urgent
Complete Blood Count/With Diff Urgent
Pro-BNP [NT-proBNP] Urgent
06/27/24 Dinner
Cholesterol Lowering
At Your Request: Full Participation
Fluid Restriction: 1800 mL/day (60 oz)
Cholesterol Lowering: Sodium, 2 Gram
06/27/24 15:45
Levalbuterol [Xopenex 1.25 mg Inhalant Solution] 1.25 mg INH R NOW STA
CR Chest - 2 Views Urgent
Comment:
Reason For Exam: sob
06/27/24 16:14
COVID-19 Antigen Urgent
Source: Nasal Swab
Influenza A+B Rapid Molecular Urgent
SAMEERA Source: Nasal Swab
Specimen Description:
06/27/24 16:53
Furosemide [Lasix] 80 mg IV NOW STA
06/27/24 18:24
Admit/Transfer Patient As Directed
Co-Sign Provider:
Level of Care: Inpatient admission
Assign to:: Telemetry
Physician / Group: Amna Joy
Diagnosis: acute on chronic HFrEf
Reason for Telemetry: Subacute Heart Failure
Date to Stop Telemetry: 06/29/24
Time to Stop Telemetry: 11:00
Reason for Hospitalization: acute on chronic HFrEf
Expected length of stay greater than two midnights?: Yes
ELOS- Estimated Length of Stay in days: 3
I certify the patient meets the requirements for IP care: Yes
06/27/24 18:25
PRN Pain Medication Management As Directed
May give lesser potent ordered pain med per pt: Yes
preference::
Protocol:: Medication orders for pain may be administered in a
manner that supports deferring to patient preference
when the pt is:
- Requesting an ordered lesser potent pain medication.
Least to most potent pain medications are defined
as: acetaminophen < NSAID < tramadol < opioids
(morphine, oxycodone, hydromorphone).
- Requesting a lesser dose of the same medication IF
ORDERED.
- Requesting a less intrusive route of administration
if both routes are prescribed by the provider (PO <
IV).
06/27/24 18:27
Code Status As Directed
Resuscitation Status: Full Code
06/27/24 21:47
Diclofenac 1% Topical Gel 2 gram TOPICAL QIDPRN PRN
Apply 2 or 4 grams as per protocol to the following joints:: Right Knee
Left Knee
Levalbuterol Tartrate [Xopenex Hfa 45 Mcg Inhaler] 2 puff INH R Q6HPRN PRN
Miconazole Nitrate [Desenex/Mitrazol/Zeasorb] See Dose Instructions TOPICAL BIDPRN PRN
06/27/24 21:47
CARDIOLOGY CONSULT Routine
Consulting Provider: Javon Sierra
Was physician already notified: Yes
HF DIETARY CONSULT Routine
HF EDUCATOR CONSULT Routine
Comment:
Activity As Directed
Activity Level: Out of Bed-Early Mobility
Intake/ Output As Directed
Frequency: q12h
Patient Education As Directed
Type: CHF folder
Comment: give on admission. Document in Interdisciplinary Education record
Sleep Apnea Assessment by RN As Directed
Comment:
Physician Instructions:
Vital Signs As Directed
Frequency: Other
Additional Instructions:: Q12 or per unit guidelines if more frequent.
Weight As Directed
Frequency: Daily
Type of Scale: Standing Scale
Comment: Daily morning weight. If unable to stand, use balanced bed scale.
Weight As Directed
Frequency: Once
Type of Scale: Standing Scale
Comment: Upon Admission. If unable to stand, use balanced bed scale.
Xopenex Reason for Use As Directed
Reason for ordering Xopenex instead of Albuterol: patient uses chronically at home
Pulse Ox/cont/shift [RESP] Routine
Quantity: 1
Special Instructions: Daily pulse oximetry at rest. If greater than 92% at rest also obtain pulse oximetry
while ambulating as tolerated.
Ot Eval And Treat Routine
Pt Eval And Treat Routine
Activity Level: Out of Bed-Early Mobility
DX Deep Vein Thrombosis Video Routine
06/27/24 22:00
Atorvastatin [Lipitor] 20 mg PO HS
06/27/24 23:00
Ammonium Lactate 12% [Lac Hydrin, Am Lactin Lotion] See Dose Instructions TOPICAL BID
06/28/24 00:00
Heparin 5,000 units SC Q8
06/28/24 06:00
Basic Metabolic Panel IN AM
Cardiovascular Evaluation IN AM
Complete Blood Count/No Diff IN AM
Magnesium IN AM
06/28/24 08:00
Aspirin Low Dose EC [Aspir Low (Enteric Coated)] 81 mg PO DAILY
Ferrous Sulfate [Feosol] 325 mg PO DAILY
Fluticasone/Salmeterol 115/21 [Advair Hfa 115/21 Mcg Inhaler] 2 puff INH R BID
Furosemide [Lasix] 80 mg PO BID@0800,1600
Lactobac/Bifidobac [Visbiome] 1 cap PO Q48H
Lidocaine [Lidocaine 4% Patch] 2 patch TOPICAL DAILY
Apply Lidocaine patch(s) to:: b/l shoulders
06/29/24 06:00
Basic Metabolic Panel IN AM
Complete Blood Count/No Diff IN AM
06/29/24 11:00
DC Protocol for Telemetry ONCE
06/30/24 06:00
Basic Metabolic Panel IN AM
Complete Blood Count/No Diff IN AM
07/01/24 08:00
Metolazone [Zaroxolyn] 2.5 mg PO FR
07/02/24 08:00
Potassium Chloride [KCl] 40 meq PO SA
Abnormal Lab Results
06/27/24
14:47
RBC 4.07 L 10^6/uL
(4.20-5.40)
Hgb 11.4 L g/dL
(12.0-16.0)
MCHC 30.7 L g/dL
(33.0-37.0)
RDW 19.1 H %
(11.5-14.5)
Absolute Lymphs (auto) 0.5 L 10^3/uL
(1.2-3.4)
Absolute Monos (auto) 0.8 H 10^3/uL
(0.1-0.6)
Neutrophils % 79.9 H %
(42.2-75.2)
Lymphocytes % 7.0 L %
(20.5-51.1)
Monocytes % 10.1 H %
(1.7-9.3)
Chloride 92 L mmol/L
(98-107)
Carbon Dioxide 37 H mmol/L
(22-30)
BUN 149 H* mg/dl
(7-17)
Creatinine 1.3 H mg/dL
(0.6-1.0)
Glucose 129 H mg/dl
(70-99)
Calcium 7.8 L mg/dl
(8.4-10.2)
06/27/24 14:47
06/27/24 14:47
Vital Signs
Initial and Last Documented VS:
Initial Vital Signs
Resp
23
06/27/24 14:46
Last Documented Vital Signs
Temp Pulse Resp BP Pulse Ox
97.7 F 71 20 123/72 96
06/27/24 21:59 06/27/24 21:59 06/27/24 21:59 06/27/24 21:59 06/27/24 21:59
MDM/Problems Addressed
Differential Diagnosis Includes:
Anemia, CHF, COPD exacerbation
MDM/Problems Addressed:
Patient presents with increased work of breathing and hypoxia. Chest x-ray is consistent with pulmonary edema. BNP is quite elevated. Labs show a markedly elevated BUN in the 140s. Discussed patient's presentation with Dr. Banks who is on-call
for cardiology of her group. Given her creatinine is at baseline he feels it is appropriate to give 80 mg of Lasix IV at this time for her pulmonary edema. We will hospitalize the patient for further evaluation of pulmonary edema and her azotemia.
Chronic conditions affecting care: DM, COPD and Other (CHF)
*Radiology
Radiology exam reviewed: preliminary read by ED provider (Pulmonary edema noted on my review of the patient's chest x-ray)
*Pulse Oximetry
Patient hypoxic: yes
*EKG
Interpreted by ED Provider?: Yes
Interpretation: abnormal
Heart Rate: 79
Rate: normal
Rhythm: sinus and PVC's
Interval: normal interval
QRS Pattern: normal QRS
Ischemia: non-specific ST changes
*Branch Associate Teller Interpretation
Rate: normal
Interpretation: normal
Rhythm: sinus
*Critical Care Note
Total Time (30-74mins, 75-104mins- exclusive of procedures): Not Applicable
Data Reviewed
Review of Other/Old Records Reveals: Other (Previous echo)
Patient Management
Social determinants of health affecting care: Living situation
ED Attending Note
-
Portions of this chart may have been created with voice recognition software.� Occasional wrong word or��sound alike� substitutions may have occurred due to the inherent limitations of voice recognition software.
Discharge Plan
Departure
Patient Disposition: Admit
Date of Disposition: 06/27/24
Time of Disposition: 16:55
Admit to: Med/Surg
Presentation/result/management discussed w/ accepting MD/DO: Hospitalist
Condition: Fair
Discharge Problem:
Acute dyspnea, CHF exacerbation, Acute prerenal azotemia
Interventions
Interventions:
*Risk Screen - Suicide Last Done: 06/27/24 21:52
*General Assessment Last Done: 06/27/24 14:48
*Neglect/Abuse Screening Last Done: 06/27/24 14:48
ED- Fall Risk Assessment Last Done: 06/27/24 14:52
*ED COVID-19 Vaccine History Last Done: 06/27/24 21:52
*Nursing Disposition Last Done: 06/27/24 21:29
ED- Cardiac Assessment Last Done: 06/27/24 14:52
ED- Pulmonary Assessment Last Done: 06/27/24 14:52
Discharge Date and Time
Discharge Date/Time: 06/27/24 21:29
[2024-06-27] MEDS: XOPENEX 1.25 MG INHALANT SOLUTION INH (16:14)
[2024-06-27 16:52] LABS: COVID-19 Antigen Negative (Negative)
[2024-06-27] MEDS: LASIX 80 MG IV (17:12)
--- NOTE | 2024-06-27 17:39 | HPS.HSE ---
Family Physician
-
Family Physician: Salinas Colon MD
Chief Complaint
-
increased shortness of breath
History of Present Illness
Patient is a 78-year-old female with past medical history significant for hypertension, hyperlipidemia, HFrEF, CKD stage III, asthma, chronic hypoxic respiratory failure with home oxygen, peripheral neuropathy, and history of DVT who presented to
[place] ED for evaluation of increased shortness of breath. Patient reports that she woke up this morning with increased shortness of breath and weight gain from yesterday of what she thinks was 7 pounds. Patient denies fever, chills, chest pain,
cough, nausea, vomiting, constipation, diarrhea and urinary symptoms.
Medical History
Past Medical History
Past Medical History: Reports Other
Additional Past Medical History:
hypertension
hyperlipidemia
HFrEF
CKD stage III
asthma
chronic hypoxic respiratory failure with home oxygen
peripheral neuropathy
history of DVT
Past Surgical History: Reports Other
Additional Past Surgical History:
cataract extraction
multiple D&Cs
tonsillectomy
cancerous mass removed from right leg
lumpectomy of benign mass of breast
Social History
Tobacco: Non-smoker
Alcohol: None
Drug: None
Living: With Family
Family History
Family History: Not pertinent
Allergies / Home Medications
Allergies reflects when Allergies were last updated in [facility].
Home Medications with original date entered in [facility]
Allergy/Medication List:
Allergies
Allergy/AdvReac Type Severity Reaction Status Date / Time
albuterol Allergy 'could not Verified 05/23/24 20:00
breath'
ceftriaxone [From Rocephin] Allergy Rash Verified 05/23/24 20:00
08/28/23
admission
cefuroxime [From Ceftin] Allergy facial Verified 05/23/24 20:00
droop,lip
swell/Margie
cefepime,
cefazolin
latex Allergy Rash Verified 05/23/24 20:00
levofloxacin [From Levaquin] Allergy facial Verified 05/23/24 20:00
droop,
rash,
numbness
lisinopril Allergy Shortness Verified 05/23/24 20:00
of Breath
naproxen Allergy Rash Verified 05/23/24 20:00
NSAIDS (Non-Steroidal Allergy Rash Verified 05/23/24 20:00
Anti-Inflamma
poison aroldo extract Allergy Unknown Verified 05/23/24 20:00
poison oak extract Allergy Unknown Verified 05/23/24 20:00
Home Medications
acetaminophen 650 mg tablet,extended release 1,300 mg PO BIDPRN PRN mild pain 12/15/23
ammonium lactate 12 % topical cream 1 applic topical BID B/L lower legs 12/15/23
aspirin 81 mg tablet,delayed release 81 mg PO DAILY Blood Clot Prevention/Tx 12/15/23
atorvastatin 20 mg tablet 20 mg PO HS High Cholesterol 12/15/23
diclofenac sodium 1 % topical gel 2 g topical QIDPRN PRN B/L knees ##0 12/15/23
miconazole nitrate 2 % topical powder (Miconazorb AF) 1 applic topical BIDPRN PRN B/L breasts/groin 12/15/23
potassium chloride 20 mEq tablet,extended release(part/cryst) 40 meq PO SA Electrolyte Repletion 12/15/23
levalbuterol tartrate 45 mcg/actuation aerosol inhaler (Xopenex HFA) 2 inh inhalation R Q6HPRN PRN SOB/WHEEZING 02/13/24
Lactobac no.2-Bifidobac no.1-S. thermo 112.5 billion cell capsule (Visbiome) 1 cap PO Q48H Supplement 02/14/24
ferrous sulfate 325 mg (65 mg iron) tablet (FeroSul) 325 mg PO DAILY Supplement 05/23/24
bisacodyl 10 mg rectal suppository (Dulcolax (bisacodyl)) 10 mg NH DAILYPRN PRN no bm 8 hrs after mom 06/27/24
fluticasone 250 mcg-salmeterol 50 mcg/dose blistr powdr for inhalation 1 inh inhalation R BID 06/27/24
furosemide 40 mg tablet 80 mg PO BID 06/27/24
lidocaine 4 % topical patch 2 patch topical DAILYPRN PRN B/L shoulders 06/27/24
magnesium hydroxide 400 mg/5 mL oral suspension (Milk of Magnesia) 30 ml PO [id number] PRN no bm x2 days 06/27/24
metolazone 2.5 mg tablet 2.5 mg PO FR 06/27/24
sodium phosphates 19 gram-7 gram/118 mL enema (Fleet Enema) 118 ml NH DAILYPRN PRN no bm 8 hrs after dulcolax 06/27/24
Review of Systems
-
History Source: Patient
Constitutional: Reports No Symptoms
EENT: Reports No Symptoms
Respiratory: Reports Other (increased shortness of breath )
Cardiac: Reports No Symptoms
Abdomen/GI: Reports No Symptoms
: Reports No Symptoms
Musculoskeletal: Reports No Symptoms
Skin: Reports No Symptoms
Neurological: Reports No Symptoms
Endocrine: Reports No Symptoms
Hematologic/Lymphatic: Reports No Symptoms
Psych: Reports No Symptoms
Physical Exam
Vital Signs
Vital Signs
Temp Pulse Resp BP Pulse Ox
97.6 F 97 23 119/57 94
06/27/24 14:48 06/27/24 17:02 06/27/24 17:02 06/27/24 17:12 06/27/24 17:00
Physical Exam
General: Well Developed, Well Nourished, No Apparent Distress, Comfortable and Conversant
HEENT: NormoCephalic, Moist mucous membranes and Atraumatic
Respiratory: Clear and Decreased Breath Sounds
Cardiac: S1/S2 and Regular Rhythm; No Murmur, Rub or Gallop
GI: Soft, Non Tender, Non Distended and Normal Bowel Sounds; No Organomegaly
Rectal: Deferred by Provider
Genito-urinary: Deferred by me
Musculoskeletal: No Clubbing, No Cyanosis and No Edema
Skin: No Rash
Neuro: Awake, Alert, AO x 3 and Nonfocal/grossly intact
Hematologic/Lymphatic: No Lymphadenopathy
Psych: Calm and Intact Judgment/Insight
Laboratory Results
-
06/27/24 14:47
06/27/24 14:47
Laboratory Results
Total Bilirubin Cancelled 06/27/24 14:47
AST Cancelled 06/27/24 14:47
ALT Cancelled 06/27/24 14:47
Alkaline Phosphatase Cancelled 06/27/24 14:47
Data Reviewed
-
Diagnostic Radiology: Report Reviewed by me (CXR: Extremely low lung volumes. Cardiomegaly with increased pulmonary vascularity suggesting CHF.)
Medical Tests (Nuc Med, Echo, EKG etc): Report Reviewed by me (EKG: SINUS RHYTHM WITH SHORT NH WITH FREQUENT PREMATURE VENTRICULAR COMPLEXES LEFT ANTERIOR FASCICULAR BLOCK CANNOT RULE OUT ANTERIOR INFARCT , AGE UNDETERMINED)
Lab Data: Labs Reviewed by me (BUN 149, Creat 1.3, )
Impression/Plan
-
IMPRESSION/PLAN:
#Acute on chronic HFrEF
BNP 68003
CXR: Extremely low lung volumes.
Cardiomegaly with increased pulmonary vascularity suggesting CHF.
- Admit to Telemetry
- Consult Cardiology
- daily weights
- monitor I&Os
- IV Lasix
- continue aspirin, metolazone, potassium chloride
#asthma
#chronic hypoxic respiratory failure with home oxygen
Covid and influenza negative
CXR: Extremely low lung volumes.
Cardiomegaly with increased pulmonary vascularity suggesting CHF.
- continue supplemental O2
- maintain SpO2 >93%
- continue home medication regimen
#hypertension
- IV Lasix
- Monitor VS
#hyperlipidemia
- continue atorvastatin
#CKD stage III
BUN 149, Creat 1.3
- monitor BMP
#chronic wounds
- consult wound care
#peripheral neuropathy
#history of DVT
Code status: Full Code
DVT Prophylaxis: Heparin Sq
--- NOTE | 2024-06-27 18:19 | W.PN.UPDATE ---
Update Note
Progress Note Update
This is an addendum to the H&P written by Ignacia Krause on 06/27/2024. Patient seen and examined independently with BALLAST CLEANING MACHINE OPERATOR.
78-year-old female past medical history of diabetes, DVT, heart failure with midrange EF, chronic hypoxemic failure on 2 L, CKD, anemia, hypertension, hyperlipidemia, asthma, obstructive sleep apnea, obesity, sacral pressure injury, chronic
lymphedema, right heel diabetic wound, presenting with shortness of breath, weight gain despite taking Lasix 80 twice daily.
Chest x-ray shows cardiomegaly with increased pulmonary vascularity. Cardiac BNP of 15,000 which is chronically elevated. Labs unremarkable. Renal function stable.
78 IV Lasix twice daily. Cardiology consulted.
--- NOTE | 2024-06-27 22:52 | PTCARENOTE ---
Received pt from ED RN. Pt pulled from the stretcher to our bed. Pt is AAOx3. NSR w/PVCs on the monitor. Received pt on 5L NC. Incont of urine, pw in place. Wound care provided, see worklist. Hygiene provided. Pt is laying in bed with call disla in
reach.
[2024-06-27] MEDS: DESENEX/MITRAZOL/ZEASORB 1 APPLIC TOPICAL (22:59)
[2024-06-27] MEDS: LIPITOR 20 MG PO (23:00)
[2024-06-27] MEDS: LAC HYDRIN, AM LACTIN LOTION 1 APPLIC TOPICAL (23:00)
[2024-06-27] MEDS: HEPARIN 5000 UNITS SC (23:00)
[2024-06-28 04:43] VITALS: BP 114/72; BMI 39.2
[2024-06-28 07:01] LABS: Hematocrit 36.7 % (37.0-47.0); Mean Corpuscular Hgb 27.4 pg (27.0-31.0); Mean Corpuscular Volume 91.5 fL (81.0-99.0); Mean Platelet Volume 9.4 fL (7.4-10.4); Platelet Count 195 10^3/uL (130-400); Red Blood Cell Count 4.01 10^6/uL (4.20-5.40); Red Cell Dist. Width 19.1 % (11.5-14.5)
--- NOTE | 2024-06-28 07:15 | W.PN.HOSP.TC ---
Addendum entered and electronically signed by Kori Maurice MD 06/28/24 16:47:
I saw and evaluated the patient independently. I reviewed the resident�s note and agree with findings and plan as documented by Dr. Jimenez.
GENERAL: chronically ill appearing female significantly SOB
HEENT: NC/AT--O2 NC [address], c/o nosebleed
HEART: regular rate and rhythm, +S1, +S2 with ectopy
LUNGS : decreased breath sounds bilaterally with some faint wheezing noted
ABDOM: soft, nontender, nondistended, + bowel sounds
EXT: no cyanosis, clubbing--venous stasis color changes to legs with 3+ LE edema bilaterally--legs wrapped with gauze--chronic wounds
NEUROLOGIC: nonfocal
Acute on chronic HFrEF exacerbation--weights up over the last week--pro BNP 15,200--consult cards--cont lasix 80 mg IV BID--follow weights, I/Os--cont aspirin, metolazone, potassium chloride and replete as needed--repeat ECHO
asthma with chronic hypoxic respiratory failure with home oxygen--cont supplemental O2--covid/flu neg--cont nebs--consult pulm
essential HTN--cont IV lasix--cont meds as able--some were stopped on previous admissions for hypotension
hyperlipidemia-- continue atorvastatin
CKD stage III--BUN 149, Creat 1.3--follow with diuresis
chronic wounds--apprec wound care
peripheral neuropathy
history of DVT
DVT proph
code status -- FULL CODE
Original Note:
Today's Communication/Plan
-
Pulmonology consult
Continue IV Lasix
Toprol
Assessment / Plan
Assessment / Plan
IMPRESSION:Patient is a 78-year-old female with past medical history significant for hypertension, hyperlipidemia, HFrEF, CKD stage III, asthma, chronic hypoxic respiratory failure with home oxygen, peripheral neuropathy, and history of DVT who
presented to [place] ED for evaluation of increased shortness of breath and weight gain.
ASSESMENT/PLAN:
#Acute on chronic HFrEF
-BNP 73858
-CXR: Extremely low lung volumes.
Cardiomegaly with increased pulmonary vascularity suggesting CHF.
- Consult Cardiology, appreciated
- daily weights--> on adm 106 kg, weight now decreased to 100.3kg
- monitor I&Os
- Continue IV Lasix
- continue aspirin, metolazone, potassium chloride
-Initiated Toprol as per cardiology for frequent asymptomatic PVCs
-Potassium repleted
#chronic hypoxic respiratory failure with home oxygen/Asthma
-Covid and influenza negative
-CXR: Extremely low lung volumes.
Cardiomegaly with increased pulmonary vascularity suggesting CHF.
-Patient is chronically on 2 L NC at home, now requiring 3L in hospital
- continue supplemental O2, added humidifier
- maintain SpO2 >93%
- continue home medication regimen
-Consulted pulmonology
#hypertension
- IV Lasix
- Monitor VS
#hyperlipidemia
- continue atorvastatin
#CKD stage III
-BUN 149, Creat 1.3 on adm
-BUN decreased, creatinine at baseline.
- monitor BMP
#chronic wounds
- wound care following
#peripheral neuropathy
#history of DVT
Code status: Full Code
DVT Prophylaxis: Heparin Sq
Anticipated Discharge: 24 - 48 hours
Subjective/Interval History
-
Date of Service: June 28, 2024
Patient continues to have shortness of breath.
Objective Data
-
Labs:
Laboratory Results
06/28/24
06:50
WBC 6.0
Hgb 11.0 L
Hct 36.7 L
Plt Count 195
Sodium Pending
Potassium Pending
Chloride Pending
Carbon Dioxide Pending
BUN Pending
Creatinine Pending
Glucose Pending
Calcium Pending
Vital Signs:
Vital Signs
Temp Pulse Resp BP Pulse Ox
97.5 F 73 20 114/72 95
06/28/24 04:43 06/28/24 04:43 06/28/24 04:43 06/28/24 04:43 06/28/24 04:43
I&O
06/27/24 06/28/24 06/29/24
06:59 06:59 06:59
Intake Total 210 / 210
Output Total 200 / 200
Balance
Review of Systems
-
All other systems: Reviewed and negative
Physical Exam
-
General: No Apparent Distress
HEENT: Normocephalic
Respiratory: Clear to Auscultation
Cardiac: Regular Rhythm, S1/S2 and Tachycardic
GI: Soft, Nontender and Nondistended
Musculoskeletal: Edema, Right Lower Extrem and Edema, Left Lower Extrem
Skin: Warm and Dry
Neuro: Awake, Alert and Oriented
Psych: Calm
[2024-06-28] MEDS: ADVAIR HFA 115/21 MCG INHALER 2 PUFF INH ×2 (07:33→19:44)
[2024-06-28 07:40] VITALS: BP 124/57
[2024-06-28 07:46] LABS: Calcium 7.8 mg/dl (8.4-10.2); Carbon Dioxide 36 mmol/L (22-30); Chloride 96 mmol/L (98-107); Estimated Creatinine Clearance 36 ml/min; Glucose 93 mg/dl (70-99); HDL Cholesterol 41 mg/dl; LDL Cholesterol, Calculated 37 mg/dl; Magnesium 2.8 mg/dl (1.6-2.3); Potassium 3.3 mmol/L (3.5-5.1); Sodium 139 mmol/L (135-145); Total Cholesterol 93 mg/dl (50-199); Triglyceride 76 mg/dl (10-149); Very Low Density Lipoprotein 15 mg/dl (0-30); eGFR 38.03
[2024-06-28 07:56] LABS: Blood Urea Nitrogen 139 mg/dl (7-17)
[2024-06-28] MEDS: LASIX 80 MG PO (08:36)
[2024-06-28] MEDS: ASPIR LOW (ENTERIC COATED) 81 MG PO (08:36)
[2024-06-28] MEDS: VISBIOME 1 CAP PO (08:36)
[2024-06-28] MEDS: HEPARIN 5000 UNITS SC ×3 (08:37→23:42)
[2024-06-28] MEDS: LIDOCAINE 4% PATCH 2 PATCH TOPICAL (08:37)
[2024-06-28] MEDS: LAC HYDRIN, AM LACTIN LOTION 1 APPLIC TOPICAL ×2 (08:41→21:38)
[2024-06-28] MEDS: FEOSOL PO (08:41)
[2024-06-28] MEDS: KCL 40 MEQ PO ×2 (09:43→21:38)
--- NOTE | 2024-06-28 10:01 | CM ---
Patient seen at bedside with therapy. Patient indicated that she was short of breath and asked CM to return later. Therapy indicated that they would return also to assess patient but most likely would recommend SNF. Patient was still at [facility]
and per Farzana Liaison at [facility] patient status is pending. CM will continue to follow for discharge planning needs.
Plan: return to SNF; [facility] pending assessment from liaison.
--- NOTE | 2024-06-28 10:22 | WOUNDNOTE ---
LEFT MEDIAL LEG
--- NOTE | 2024-06-28 10:22 | WOUNDNOTE ---
RIGHT LATERAL LEG
--- NOTE | 2024-06-28 10:23 | WOUNDNOTE ---
RIGHT BREAST FOLD
--- NOTE | 2024-06-28 10:23 | WOUNDNOTE ---
RIGHT ISCHIUM, POSTERIOR THIGH
--- NOTE | 2024-06-28 10:25 | WOUNDNOTE ---
[facility] RN note: Patient admitted with increase SOB and weight gain.
See H&P for complete history.
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 PI on sacrum, right stage 3 on plantar heel and bilateral
venous wounds.
Wound Location and type/assessment: Patient last seen 04/2024 for same venous stasis ulcers LE's, and PI on buttocks/ischium/posterior thighs. Ischium and posterior thighs now healed. Bilateral legs with chronic lymphedema, +Hemosiderosis,+Palpable
pedal pulses. L Heel is intact, R plantar heel with healing stage 3 PI, now clean pink base. Sacrum with healing 3 PI. Abdominal/groin/breast skin folds with yeasty red skin, fungal powder applied by nursing. LacHytrin has been ordered and was
applied during assessment.
Appetite: TBD
Pressure redistribution devices in place:Accumax, called house keeping for air bed.
Plan: All wound care completed as ordered. No-sting barrier applied to around sacral wound due to maceration. Patient had difficulty turning for wound care due to SOB. Will confirm order for wound care with hospitalist. Awaiting confirmation of
compression. Patient has several comorbidities including bedbound status, chronic respiratory failure, and diabetes. Wounds may worsen and new wounds may develop even with optimal care. Patient positioned upright with assistance of RN Doug. Doug,
care plan and discharge all updated. Will follow as needed.
--- NOTE | 2024-06-28 10:55 | CON.CAR ---
Addendum entered and electronically signed by Javon Sierra DO 06/28/24 16:25:
I saw and examined the patient.
The Stage Set Up Worker's note was reviewed and I agree with the note.
Comment:
Plan:
HPI: Patient came to ER yesterday from [facility] rehab with complaints of increased SOB and was admitted with acute CHF and cardiology has been consulted. Patient was just admitted to from 05/23/2024 until 05/27/2024 with LLE cellulitis and
hypotension. During that admission her doses of Lasix and metolazone were held, but Lasix 80 mg PO BID was eventually restarted on the day of discharge. It was recommended that metolazone stay off of her med list. Patient went to [facility] for
rehab and reports she has been taking Lasix 80 mg PO BID and has been restarted on metolazone 2.5 mg once a week. She thinks her urine output has been good, but she has been feeling like her legs are more swollen and then suddenly yesterday she was
more SOB and asked to come to ER. She feels as though the SOB came on very quickly. She denies any CP. BUN was high at 149 on admission and Hgb was stable. Patient was given Lasix 80 mg IV x1 in the ER, but remains dyspneic and requiring 3 L NC
instead of her usual 2 L NC.
Change to IV lasix 80 mg BID.
Monitor daily wts, Is and Os and cr.
She is up at least 5 lbs from her recent d/c wt.
Consider nephrology eval given elevated BUN
Known frequent PVCs, previously managed with Cardizem CD for frequent, asymptomatic PVCs. During one of her recent admissions she was changed to Toprol XL 25 mg daily which was then stopped during her 04/2024 admission due hypotension. Resume Toprol
XL 12.5 mg daily in AM. Follow tele.
Imdur ER stopped during 04/2024 admission due to hypotension and because it was no longer needed. Imdur was started in the past during an attempt to start nitrates and hydralazine for reduced EF and inability to take KAROLINA/ARB. Will stop Imdur ER.
-Previously declined SGLT-2 due to risk of infection as she is almost bedbound and incontinent.
Replete lytes as needed
-KCl 40 meq PO given 06/28/24 and will order additional KCl 40 meq for tonight.
PT/OT
Original Note:
Consultation
Consultation Request
Date/Time Consultation Requested: 06/27/24 at 2147
Date/Time Consultation Performed: 06/28/24 at 1438
Requesting Provider: Dr. Maurice
Performing Provider: Dr. Sierra
Reason for Consultation: Acute HF
Medical History
-
History of Present Illness:
Patient came to ER yesterday from [facility] rehab with complaints of increased SOB and was admitted with acute CHF and cardiology has been consulted. Patient was just admitted to from 05/23/2024 until 05/27/2024 with LLE cellulitis and
hypotension. During that admission her doses of Lasix and metolazone were held, but Lasix 80 mg PO BID was eventually restarted on the day of discharge. It was recommended that metolazone stay off of her med list. Patient went to [facility] for
rehab and reports she has been taking Lasix 80 mg PO BID and has been restarted on metolazone 2.5 mg once a week. She thinks her urine output has been good, but she has been feeling like her legs are more swollen and then suddenly yesterday she was
more SOB and asked to come to ER. She feels as though the SOB came on very quickly. She denies any CP. BUN was high at 149 on admission and Hgb was stable. Patient was given Lasix 80 mg IV x1 in the ER, but remains dyspneic and requiring 3 L NC
instead of her usual 2 L NC.
PMH:
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
EF 45-50% by echo 10/01/23
CKD 3b
Chronic hypoxic respiratory failure on home oxygen 2 L via NC
Frequent PVCs and bigeminy
Asthma/COPD
Chronic Lymphedema and chronic venous stasis changes
Hypertension
HLD
DM II
MARIAMA, untreated
Peripheral Neuropathy
History of DVT
Morbid Obesity
Medication and dietary non-adherence
Past Medical History
Past Medical History: Other (in HPI)
Past Surgical History: Other (B/L cataract surgery, Several D&Cs, miscarriage, Tonsillectomy, Cancerous mass removed from right leg 20 years ago, Breast mass removed noncancerous)
Social History
Tobacco: Non-Smoker
Alcohol: None
Drug: None
Living: With Family (she is back to living at home with her son and daughter after rehab stay earlier this year)
Family History
Family History: Cancer and Other (thamassemia)
Allergies / Home Medications
Allergy/AdvReac Type Severity Reaction Status Date / Time
albuterol Allergy 'could not Verified 05/23/24 20:00
breath'
ceftriaxone [From Rocephin] Allergy Rash Verified 05/23/24 20:00
08/28/23
admission
cefuroxime [From Ceftin] Allergy facial Verified 05/23/24 20:00
droop,lip
swell/Margie
cefepime,
cefazolin
latex Allergy Rash Verified 05/23/24 20:00
levofloxacin [From Levaquin] Allergy facial Verified 05/23/24 20:00
droop,
rash,
numbness
lisinopril Allergy Shortness Verified 05/23/24 20:00
of Breath
naproxen Allergy Rash Verified 05/23/24 20:00
NSAIDS (Non-Steroidal Allergy Rash Verified 05/23/24 20:00
Anti-Inflamma
poison aroldo extract Allergy Unknown Verified 05/23/24 20:00
poison oak extract Allergy Unknown Verified 05/23/24 20:00
�Medication �Instructions �Recorded �Confirmed �Type
acetaminophen 650 mg 1,300 mg PO BIDPRN PRN mild pain 12/15/23 06/27/24 History
tablet,extended release
ammonium lactate 12 % topical cream 1 applic topical BID B/L lower legs 12/15/23 06/27/24 History
aspirin 81 mg tablet,delayed 81 mg PO DAILY Blood Clot 12/15/23 06/27/24 History
release Prevention/Tx
atorvastatin 20 mg tablet 20 mg PO HS High Cholesterol 12/15/23 06/27/24 History
diclofenac sodium 1 % topical gel 2 g topical QIDPRN PRN B/L knees 12/15/23 06/27/24 History
##0
miconazole nitrate 2 % topical 1 applic topical BIDPRN PRN B/L 12/15/23 06/27/24 History
powder (Miconazorb AF) breasts/groin
potassium chloride 20 mEq 40 meq PO SA Electrolyte Repletion 12/15/23 06/27/24 History
tablet,extended release(part/cryst)
levalbuterol tartrate 45 2 inh inhalation R Q6HPRN PRN 02/13/24 06/27/24 History
mcg/actuation aerosol inhaler SOB/WHEEZING
(Xopenex HFA)
Lactobac no.2-Bifidobac no.1-S. 1 cap PO Q48H Supplement 02/14/24 06/27/24 History
thermo 112.5 billion cell capsule
(Visbiome)
ferrous sulfate 325 mg (65 mg 325 mg PO DAILY Supplement 05/23/24 06/27/24 History
iron) tablet (FeroSul)
bisacodyl 10 mg rectal suppository 10 mg TX DAILYPRN PRN no bm 8 hrs 06/27/24 06/27/24 History
(Dulcolax (bisacodyl)) after mom
fluticasone 250 mcg-salmeterol 50 1 inh inhalation R BID 06/27/24 06/27/24 History
mcg/dose blistr powdr for
inhalation
furosemide 40 mg tablet 80 mg PO BID 06/27/24 06/27/24 History
lidocaine 4 % topical patch 2 patch topical DAILYPRN PRN B/L 06/27/24 06/27/24 History
shoulders
magnesium hydroxide 400 mg/5 mL 30 ml PO [id number] PRN no bm x2 days 06/27/24 06/27/24 History
oral suspension (Milk of Magnesia)
metolazone 2.5 mg tablet 2.5 mg PO FR 06/27/24 06/27/24 History
sodium phosphates 19 gram-7 118 ml TX DAILYPRN PRN no bm 8 hrs 06/27/24 06/27/24 History
gram/118 mL enema (Fleet Enema) after dulcolax
Review of Systems
-
History Source: Patient
All other systems: Negative unless noted
Physical Exam
Vital Signs
Temp Pulse Resp BP Pulse Ox
97.3 F 69 18 124/57 99
06/28/24 07:40 06/28/24 07:40 06/28/24 07:40 06/28/24 07:40 06/28/24 07:40
General: NAD. AAOX3
HEENT: EOMI, MMM
Heart: SR with PVCs on tele. Regular with ectopy, no murmur
Lungs: Wearing oxygen at 3 L NC. Tachypneic and dyspneic with conversation. No wheeze B/L.
Abd: +BS, ND
Ext: Chronic lymphedema changes. +3 B/L LE hard non-pitting edema
Neuro: No focal or lateralizing weakness
Skin: No rash
Lab Results
06/28/24 06:50
06/28/24 06:50
[id number] Pept [id number] pg/ml 06/27/24 14:47
Impression / Plan
-
PCP: Cris Avilez PA-C
Dental Biller: Dr. Tru
Impression:
Admitted with acute on chronic hypoxic respiratory failure and acute HF 06/27/24
Acute on chronic HFmrEF 10/01/23
EF 45-50% by echo 10/01/23
ALMA on CKD 3b, markedly elevated BUN
Chronic hypoxic respiratory failure on home oxygen 2 L via NC
Frequent PVCs and bigeminy
Asthma/COPD
Chronic Lymphedema and chronic venous stasis changes
Hypertension
HLD
DM II
MARIAMA, untreated
Peripheral Neuropathy
History of DVT
Morbid Obesity
Medication and dietary non-adherence
Hypokalemia
Echo 08/22/21:�LVEF 53%, mild LVH, Mild MR, Mild 20/10 PRECIOUS 1.7cm2, mild AI
Echo 03/24/22: Technically limited study and patient was scanned in a wheelchair. No regional wall motion abnormalities are seen. LV ejection fraction is 53% by Phan's biplane method�of discs. Mild left ventricular hypertrophy. Normal diastolic
function. Mild mitral regurgitation is seen. This may be underestimated due to acoustic shadowing. Mild aortic stenosis. Peak/mean gradients across the aortic valve 20/10 mmHg. Using an LVOT diameter�of 2.0 cm the aortic valve by the Continuity
equation is calculated at 1.7 cm2. Mild aortic regurgitation.
Echo 12/18/2022:�EF 40-45%, global hypokinesis, moderate cLVH, stage II diastolic dysfunction, mild MS, mild MR, severely dilated LA, moderate with peak/mean gradients 45/20 mmHg, PRECIOUS 1.2 cm2, mild AR, mild TR, estimated PAP 42 mmHg,
Echo 03/16/2023: EF 45-50%, moderate cLVH, global hypokinesis, mild MR, mild to moderate with peak/mean gradients 21/12 mmHg, mild TR, estimated PAP 30-35 mmHg
ECHO 10/01/23: EF 45 to 50%, global hypokinesis, moderate to severe concentric LVH, stage II diastolic dysfunction, mildly dilated RV, mitral sclerosis, mild to moderate , peak/mean gradients 26/18 mmHg, mild AR, mild to moderate TR, PAP 60 to 65
mmHg
Plan:
-Patient came to ER yesterday from [facility] rehab with complaints of increased SOB and was admitted with acute CHF and cardiology has been consulted. Patient was just admitted to from 05/23/2024 until 05/27/2024 with LLE cellulitis and
hypotension. During that admission her doses of Lasix and metolazone were held, but Lasix 80 mg PO BID was eventually restarted on the day of discharge. It was recommended that metolazone stay off of her med list. Patient went to [facility] for
rehab and reports she has been taking Lasix 80 mg PO BID and has been restarted on metolazone 2.5 mg once a week. She thinks her urine output has been good, but she has been feeling like her legs are more swollen and then suddenly yesterday she was
more SOB and asked to come to ER. She feels as though the SOB came on very quickly. She denies any CP. BUN was high at 149 on admission and Hgb was stable. Patient was given Lasix 80 mg IV x1 in the ER, but remains dyspneic and requiring 3 L NC
instead of her usual 2 L NC.
-ECG reviewed by me is SR with frequent PVCs which is chronic and known for patient
-Lasix currently ordered 80 mg PO BID, but suspect patient is hypervolemic so will switch to Lasix 80 IV BID
-Consider nephrology consultation for high BUN
-Previous dry weight of 211 lbs back on last discharge 02/16/2024.
-Patient with longstanding frequent PVCs. Previously managed with Cardizem CD for frequent, asymptomatic PVCs. During one of her recent admissions she was changed to Toprol XL 25 mg daily which was then stopped during her 04/2024 admission due
hypotension. Will try to restart Toprol XL 12.5 mg daily in AM. Follow tele.
-Imdur ER stopped during 04/2024 admission due to hypotension and because it was no longer needed. Imdur was started in the past during an attempt to start nitrates and hydralazine for reduced EF and inability to take KAROLINA/ARB. Therefore, we will
stop Imdur ER.
-Previously declined SGLT-2 due to risk of infection and she is almost bedbound and incontinent.
-KCl 40 meq PO given 06/28/24 and will order additional KCl 40 meq for tonight.
[2024-06-28 11:05] VITALS: BMI 39.2
[2024-06-28 11:16] VITALS: BP 125/64
--- NOTE | 2024-06-28 15:20 | CON.PUL ---
Consultation
Consultation Request
Date/Time Consultation Requested: 06/28/2024 - 142
Date/Time Consultation Performed: 06/28/2024 - 145
Requesting Provider: Dr. Weston
Performing Provider: Dr. Cunningham
Reason for Consultation: Hypoxia/SOB
Medical History
-
Chief Complaint: SOB
History of Present Illness:
78-year-old female non-smoker with a past medical history of DVT, asthma, MARIAMA intolerant to CPAP, DM type II, chronic venous stasis dermatitis, history of COVID-19, HFmrEF, and chronic hypoxic respiratory failure on home O2 who presents from [place]
home with SOB. Patient reports that she woke up on the morning of arrival with increased shortness of breath and had weight gain. She believes she has gained about 7 pounds. In the ER she was afebrile to 97.6 �F, heart rate 80, breathing at 23
breaths/min, BP 116/76 and saturating 92% on 2 L/min. Labs showed Hb 11.4, serum bicarbonate level 37, BUN 149, creatinine 1.3, proBNP 15,200 and COVID-19 antigen negative. Flu A/B also negative and CXR showed pulmonary vascular congestion
consistent with CHF exacerbation. She was given Xopenex in the ER +80 mg Lasix and admitted to telemetry. Pulmonary service now consulted for additional management/recommendations.
When I saw the patient she was resting in bed in no acute distress currently on 3 L/min nasal cannula. She currently denies chest pain, DOBBINS, abdominal pain, nausea, fevers or chills. She does have SOB with activity. She says that her legs are
normally swollen with scaling, and her right leg is normally more swollen than the left. She says that she has had many lower extremity duplex studies and they have been negative for DVT, although she does have a history of DVT.
Of note she follows with us in the [facility] office with last visit on 12/07/2023 with DAVID Cherry. Usually sees Dr. Courtney. She has a history of MARIAMA but stopped CPAP due to intolerance. She does use 2 L/min O2 with sleep and tries to sleep
with her head of the bed elevated or in a recliner. An HSAT was recommended and was going to be arranged. She is mainly wheelchair-bound so she was unable to perform a 6 MWT at the last office visit. She is managed on Advair given her history of
asthma and Xopenex as needed. She also has chronic insomnia and history of chronic diastolic heart failure/chronic HFmrEF on Lasix daily. She was told to follow-up in 2 months with a PFT. Her last full PFT was performed on 03/13/2021 showing
moderate COPD with mild restriction and moderate gas exchange capacity defect which was normal when accounting for alveolar volume involved in gas exchange (DLco: 55%; DLco/VA: 75%).
PMHx: DVT (right sided mid/distal femoral vein which was nearly occlusive seen via duplex ultrasound from October 2019), asthma, obesity, MARIAMA intolerant to CPAP, hypertension, hypercholesterolemia, DM type II, chronic venous stasis dermatitis, history
of COVID-19, anemia, HFmrEF, chronic hypoxic respiratory failure on home O2, chronic wounds on legs/back
PSHx: Tumor removed from right breast, left cataract surgery, right cataract surgery, tonsillectomy, skin cancer resection, D&C
Past Medical History
Past Medical History: Other (Above as per HPI)
Past Surgical History: Other (Above as per HPI)
Social History
Tobacco: Non-smoker
Drug: None
Personal: Single
Living: With Family
Family History
Family History: Cancer (Father: Leukemia; son: Testicular cancer), Diabetes (Sister) and Other (Mother: Thalassemia + thyroid disease; Sister: COPD)
Allergies / Home Medications
Allergies
Allergy/AdvReac Type Severity Reaction Status Date / Time
albuterol Allergy 'could not Verified 05/23/24 20:00
breath'
ceftriaxone [From Rocephin] Allergy Rash Verified 05/23/24 20:00
08/28/23
admission
cefuroxime [From Ceftin] Allergy facial Verified 05/23/24 20:00
droop,lip
swell/Margie
cefepime,
cefazolin
latex Allergy Rash Verified 05/23/24 20:00
levofloxacin [From Levaquin] Allergy facial Verified 05/23/24 20:00
droop,
rash,
numbness
lisinopril Allergy Shortness Verified 05/23/24 20:00
of Breath
naproxen Allergy Rash Verified 05/23/24 20:00
NSAIDS (Non-Steroidal Allergy Rash Verified 05/23/24 20:00
Anti-Inflamma
poison aroldo extract Allergy Unknown Verified 05/23/24 20:00
poison oak extract Allergy Unknown Verified 05/23/24 20:00
Home Medications
�Medication �Instructions �Recorded �Confirmed �Last Taken �Type
acetaminophen 650 mg 1,300 mg PO BIDPRN PRN mild pain 12/15/23 06/27/24 02/13/24 History
tablet,extended release
ammonium lactate 12 % topical cream 1 applic topical BID B/L lower legs 12/15/23 06/27/24 02/13/24 History
aspirin 81 mg tablet,delayed 81 mg PO DAILY Blood Clot 12/15/23 06/27/24 02/13/24 History
release Prevention/Tx
atorvastatin 20 mg tablet 20 mg PO HS High Cholesterol 12/15/23 06/27/24 02/13/24 History
diclofenac sodium 1 % topical gel 2 g topical QIDPRN PRN B/L knees 12/15/23 06/27/24 02/13/24 History
##0
miconazole nitrate 2 % topical 1 applic topical BIDPRN PRN B/L 12/15/23 06/27/24 02/13/24 History
powder (Miconazorb AF) breasts/groin
potassium chloride 20 mEq 40 meq PO SA Electrolyte Repletion 12/15/23 06/27/24 02/13/24 History
tablet,extended release(part/cryst)
levalbuterol tartrate 45 2 inh inhalation R Q6HPRN PRN 02/13/24 06/27/24 02/13/24 History
mcg/actuation aerosol inhaler SOB/WHEEZING
(Xopenex HFA)
Lactobac no.2-Bifidobac no.1-S. 1 cap PO Q48H Supplement 02/14/24 06/27/24 02/13/24 History
thermo 112.5 billion cell capsule
(Visbiome)
ferrous sulfate 325 mg (65 mg 325 mg PO DAILY Supplement 05/23/24 06/27/24 Unknown History
iron) tablet (FeroSul)
bisacodyl 10 mg rectal suppository 10 mg AZ DAILYPRN PRN no bm 8 hrs 06/27/24 06/27/24 Unknown History
(Dulcolax (bisacodyl)) after mom
fluticasone 250 mcg-salmeterol 50 1 inh inhalation R BID 06/27/24 06/27/24 Unknown History
mcg/dose blistr powdr for
inhalation
furosemide 40 mg tablet 80 mg PO BID 06/27/24 06/27/24 Unknown History
lidocaine 4 % topical patch 2 patch topical DAILYPRN PRN B/L 06/27/24 06/27/24 Unknown History
shoulders
magnesium hydroxide 400 mg/5 mL 30 ml PO [id number] PRN no bm x2 days 06/27/24 06/27/24 Unknown History
oral suspension (Milk of Magnesia)
metolazone 2.5 mg tablet 2.5 mg PO FR 06/27/24 06/27/24 Unknown History
sodium phosphates 19 gram-7 118 ml [place] DAILYPRN PRN no bm 8 hrs 06/27/24 06/27/24 Unknown History
gram/118 mL enema (Fleet Enema) after dulcolax
Review of Systems
-
History Source: Patient
All other systems: Negative unless noted
Vitals / Labs / Diagnostic Testing
Vital Signs
Temp Pulse Resp BP Pulse Ox
97.7 F 73 18 126/72 95
06/28/24 15:45 06/28/24 15:45 06/28/24 15:45 06/28/24 15:45 06/28/24 15:45
Lab Data
06/28/24 06:50
06/28/24 06:50
Microbiology
06/27/24 16:14 Nasal Swab Influenza Types A & B (ROBER) - Final
Negative for Influenza A & B, NAAT
Negative results must be combined with clinical observations
and patient history.
Nucleic Acid Amplification test (NAAT)performed on the
[employer] platform.
Diagnostic Testing:
Physical Exam
-
HEENT: Normocephalic and Anicteric
Cardiovascular: S1/S2, Murmur (JAIME heard best at RUSB) and Peripheral Edema (+2 LE pitting edema bilaterally)
Respiratory: Wheeze (heard upon expiration bilaterally), Rales (bilaterally), Rhonchi (negative), Non-Labored Respirations and Other (Diminished breath sounds at the bases bilaterally)
GI: Soft, Distended (Abdominal obesity), Non Tender and Normal Bowel Sounds
Neurology: AO x 3 and Tremors (negative)
Skin: Warm and Other (Chronic venous stasis dermatitis in bilateral lower extremities with lichenification (R >L))
General: Respiratory Distress (negative), Comfortable, Fever (negative), Chills (negative) and Sweats (negative)
Assessment
-
Assessment: 78-year-old female non-smoker with a past medical history of DVT, asthma, MARIAMA intolerant to CPAP, DM type II, chronic venous stasis dermatitis, history of COVID-19, HFmrEF, and chronic hypoxic respiratory failure on home O2 who
presents from [facility] home with SOB. Patient reports that she woke up on the morning of arrival with increased shortness of breath and had weight gain. She believes she has gained about 7 pounds. In the ER she was afebrile to 97.6 �F, heart rate
80, breathing at 23 breaths/min, BP 116/76 and saturating 92% on 2 L/min. Labs showed Hb 11.4, serum bicarbonate level 37, BUN 149, creatinine 1.3, proBNP 15,200 and COVID-19 antigen negative. Flu A/B also negative and CXR showed pulmonary
vascular congestion consistent with CHF exacerbation. She was given Xopenex in the ER +80 mg Lasix and admitted to telemetry. Pulmonary service now consulted for additional management/recommendations.
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
dermatitis, history of COVID-19, anemia, HFmrEF, chronic hypoxic respiratory failure on home O2, chronic wounds on legs/back
Impression:
#Acute decompensated heart failure/acute HFmrEF exacerbation
#Acute on chronic respiratory failure with hypoxia (on 2 L/min ATC at baseline)
#Acute uremia with severely elevated BUN
#Moderate COPD/asthma maintained on Advair 115mcg + prn xopenex - not currently in an acute exacerbation
#CKD (baseline creatinine 1.4�1.6)
#Valvular heart disease with mild�moderate aortic stenosis via echo from November 2023
#Moderate pulmonary hypertension with PASP: 51 mmHg with mildly dilated RV via echo from November 2023
#History of eosinophilia (absolute eosinophil count was 800 on 02/19/2024)
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
#History of RLE DVT (10/2019 involving the mid/distal right femoral vein)
#Hx of COVID-19
#MARIAMA intolerant to CPAP
Plan:
- Although BUN is elevated, she continues to be short of breath and recent proBNP was severely elevated with CXR showing extremely low lung volumes with pulmonary vascular congestion from CXR on 06/27/2024
- I do not believe that she is having a COPD exacerbation given she reports orthopnea, and her BNP is markedly elevated and given her CXR findings
- Continue with diuresis as per cardiology
- Recommend nephrology consult given her severely elevated BUN
- Continue to trend BUN and sCr; trend UOP and I/O
- Hold off on systemic steroids for now and continue to monitor
- Maintain SpO2 88-95% with supplemental O2 and wean down as tolerated
- Continue Advair 115mcg with prn xopenex
- Mucolytics as needed
- Re-check echo to assure her aortic stenosis is not worsening
- Doubt that she has a DVT/PE given she is not tachycardic and is only minimally more hypoxic than baseline, however if O2 requirements worsen then would at least re-check lower extremity duplex and consider CTA chest; if echo shows significant RV
dysfunction then would start heparin drip and check CTA chest
- Incentive spirometer encouraged q1hr while awake
- Replete electrolytes with K>4, Mg>2
- Maintain euglycemia with goal BG >100 and <180
- prn nebulized bronchodilators - she is wheezing but I believe this is a cardiac wheeze
- DVT ppx: HSQ
Pulmonary service will continue to follow along. She will need to continue following up with our office as last visit on 12/07/2023 with DAVID Cherry.
Data:
CXR 06/27/2024: Extremely low lung volumes; Cardiomegaly with increased pulmonary vascularity suggesting CHF.
Total time spent today was 58 minutes for this encounter. Time includes reviewing laboratory test/imaging results, reviewing pertinent medical records, obtaining and reviewing medical history, performing an appropriate exam, ordering medications,
tests and procedures. Time also includes documentation of this encounter, coordinating patient care and communicating with other healthcare professionals. Total time does not include separately billed tests performed on this date of service.
[2024-06-28 15:45] VITALS: BP 126/72
[2024-06-28] MEDS: LASIX 80 MG IV (16:43)
[2024-06-28 20:00] VITALS: BP 121/70
[2024-06-28] MEDS: LIPITOR 20 MG PO (21:38)
[2024-06-28 23:33] VITALS: BP 128/74
[2024-06-29] VITALS (7 sets, daily range): BP systolic 120–136; BP diastolic 71–83; BMI 39.2
[2024-06-29] MEDS: XOPENEX HFA 45 MCG INHALER 2 PUFF INH (01:13)
[2024-06-29] MEDS: AFRIN NASAL SPRAY 4 SPRAYS NASAL ×2 (02:27→14:59)
[2024-06-29 07:13] LABS: % Basophils 1.1 % (0-2); % Eosinophils 0.9 % (0-6); % Immature Granulocytes 0.3 % (0-0.5); % Lymphocytes 6.2 % (20.5-51.1); % Monocytes 11.2 % (1.7-9.3); % Neutrophils 80.3 % (42.2-75.2); Absolute Basophils 0.1 10^3/uL (0-0.2); Absolute Eosinophils 0.1 10^3/uL (0-0.7); Absolute Lymphocytes 0.4 10^3/uL (1.2-3.4); Absolute Monocytes 0.7 10^3/uL (0.1-0.6); Absolute Neutrophils 5.3 10^3/uL (1.4-6.5); Hematocrit 35.8 % (37.0-47.0); Hemoglobin 11.2 g/dL (12.0-16.0); Mean Corp Hgb Conc. 31.3 g/dL (33.0-37.0); Mean Corpuscular Hgb 28.3 pg (27.0-31.0); Mean Corpuscular Volume 90.4 fL (81.0-99.0); Mean Platelet Volume 9.9 fL (7.4-10.4); Nucleated Red Blood Cells % 0 %; Platelet Count 217 10^3/uL (130-400); Red Blood Cell Count 3.96 10^6/uL (4.20-5.40); Red Cell Dist. Width 19.3 % (11.5-14.5); White Blood Cell Count 6.6 10^3/uL (4.8-10.8)
[2024-06-29] MEDS: ADVAIR HFA 115/21 MCG INHALER 2 PUFF INH ×2 (07:20→19:50)
--- NOTE | 2024-06-29 07:20 | W.PN.HOSP.TC ---
Addendum entered and electronically signed by Ele Jimenez MD, Resident 06/29/24 16:06:
Patient has uncontrollable episode of epistaxis as updated by nurse. Consulted ENT on-call and informed of patient's significant epistaxis episode. Patient will be seen today by ENT.
Addendum entered and electronically signed by Kori Maurice MD 06/29/24 15:13:
I saw and evaluated the patient independently. I reviewed the resident�s note and agree with findings and plan as documented by Dr. Jimenez.
GENERAL: chronically ill appearing female significantly SOB
HEENT: NC/AT--O2 NC in place, c/o nosebleed (still having)
HEART: regular rate and rhythm, +S1, +S2 with ectopy
LUNGS : decreased breath sounds bilaterally
ABDOM: soft, nontender, nondistended, + bowel sounds
EXT: no cyanosis, clubbing--venous stasis color changes to legs with 3+ LE edema bilaterally--legs wrapped with gauze--chronic wounds
NEUROLOGIC: nonfocal
Acute on chronic HFrEF exacerbation--weights up over the last week--pro BNP 15,200--apprec cards--cont lasix 80 mg IV BID--follow weights, I/Os--cont aspirin, metolazone, potassium chloride and replete as needed--repeat ECHO tomorrow--pt could have
bilateral pleural effusions too--consult IR for possible thoracentesis
asthma with chronic hypoxic respiratory failure with home oxygen--cont supplemental O2--covid/flu neg--cont nebs--apprec pulm
essential HTN--cont IV lasix--cont meds as able--some were stopped on previous admissions for hypotension
nosebleeds--no help with humidified O2, afrin, ocean nasal spray--consult ENT in AM
hyperlipidemia-- continue atorvastatin
CKD stage III--BUN 149, Creat 1.3--follow with diuresis
chronic wounds--apprec wound care
peripheral neuropathy
history of DVT
DVT proph
code status -- FULL CODE
Original Note:
Today's Communication/Plan
-
Scheduled for thoracentesis tomorrow
Continue IV Lasix
Nephrology consult
Echo pending
Assessment / Plan
Assessment / Plan
IMPRESSION:Patient is a 78-year-old female with past medical history significant for hypertension, hyperlipidemia, HFrEF, CKD stage III, asthma, chronic hypoxic respiratory failure with home oxygen, peripheral neuropathy, and history of DVT who
presented to [place] ED for evaluation of increased shortness of breath and weight gain.
ASSESMENT/PLAN:
#Acute on chronic HFrEF
-BNP 44674
-CXR: Extremely low lung volumes.
Cardiomegaly with increased pulmonary vascularity suggesting CHF.
- Consult Cardiology, appreciated
- daily weights--> on adm 106 kg, weight now decreased to 100.3kg (no continued loss of weight today)
- monitor I&Os
- Continue IV Lasix
- continue aspirin, metolazone, potassium chloride
- Continue Toprol as per cardiology for frequent asymptomatic PVCs
� Echo pending
#Chronic hypoxic respiratory failure with home oxygen/Asthma
-Covid and influenza negative
-CXR: Extremely low lung volumes.
Cardiomegaly with increased pulmonary vascularity suggesting CHF.
-Patient is chronically on 2 L NC at home, now requiring 3L in hospital
- continue supplemental O2, added humidifier
- maintain SpO2 >93%
- continue home medication regimen
-Consulted pulmonology, appreciated
-CXR 06/29/2024: Right basilar opacity suspicious for pleural fluid
� IR consulted, patient scheduled for thoracentesis tomorrow
#Nosebleed
- Not bleeding at time of exam, though c/o nosebleeds early AM and that they started earlier this month
-Currently only on ASA and DVT ppx (heparin subq)
-Will consult ENT tomorrow
#Essential Hypertension
- IV Lasix
- Monitor VS
#Hyperlipidemia
- continue atorvastatin
#CKD stage III
-BUN 149, Creat 1.3 on adm
-BUN decreased, creatinine at baseline.
- monitor BMP
�BUN decreased only mildly at 138, creatinine still at baseline
-Nephrology consulted
#Chronic wounds
- wound care following
#Peripheral neuropathy
#History of DVT
Family informed by call that patient is scheduled for thoracentesis tomorrow.
Code status: Full Code
DVT Prophylaxis: Heparin Sq
Anticipated Discharge: 24 - 48 hours
Subjective/Interval History
-
Date of Service: June 29, 2024
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
Objective Data
-
Labs:
Laboratory Results
06/29/24
06:50
WBC 6.6
Hgb 11.2 L
Hct 35.8 L
Plt Count 217
Sodium Pending
Potassium Pending
Chloride Pending
Carbon Dioxide Pending
BUN Pending
Creatinine Pending
Glucose Pending
Calcium Pending
Total Bilirubin Pending
AST Pending
ALT Pending
Alkaline Phosphatase Pending
Vital Signs:
Vital Signs
Temp Pulse Resp BP Pulse Ox
97.5 F 74 18 124/74 92
06/29/24 03:23 06/29/24 03:23 06/29/24 03:23 06/29/24 03:23 06/29/24 03:23
I&O
06/28/24 06/29/24 06/30/24
06:59 06:59 06:59
Intake Total 210 / 210 240 / 240
Output Total 200 / 200 500 / 500
Balance 10 / -260 / -260
Review of Systems
-
Constitutional: Reports Weakness; Denies Fever or Chills
EENT: Reports No Symptoms Reported and Bloody Nose
Respiratory: Reports Trouble Breathing
Cardiac: Reports Orthopnea
Abdomen/GI: Reports No Symptoms
Neuro: Reports No Symptoms
Physical Exam
-
General: No Apparent Distress
HEENT: Normocephalic
Respiratory: Decreased Breath Sounds
Cardiac: Regular Rhythm and S1/S2; Negative Murmur
GI: Soft and Nontender
Musculoskeletal: Edema, Right Lower Extrem, Edema, Left Lower Extrem and Other (chronic venous stasis wounds/skin changes)
Skin: Warm and Dry
Neuro: Awake, Alert and Oriented
[2024-06-29] MEDS: FEOSOL 325 MG PO (07:32)
[2024-06-29] MEDS: ASPIR LOW (ENTERIC COATED) 81 MG PO (07:32)
[2024-06-29] MEDS: HEPARIN 5000 UNITS SC (07:32)
[2024-06-29] MEDS: KCL 40 MEQ PO (07:32)
[2024-06-29] MEDS: TOPROL XL 12.5 MG PO (07:32)
[2024-06-29] MEDS: LASIX 80 MG IV ×2 (07:35→16:06)
[2024-06-29] MEDS: LAC HYDRIN, AM LACTIN LOTION 1 APPLIC TOPICAL ×2 (07:35→21:43)
[2024-06-29] MEDS: LIDOCAINE 4% PATCH TOPICAL (07:36)
[2024-06-29 07:38] LABS: NT-proBNP 14600 pg/ml
[2024-06-29 08:26] LABS: ALT (SGPT) 18 U/L (0-35); AST (SGOT) 24 U/L (14-36); Albumin 3.2 g/dl (3.5-5.0); Alkaline Phosphatase 119 U/L (38-126); Blood Urea Nitrogen 138 mg/dl (7-17); Calcium 7.9 mg/dl (8.4-10.2); Carbon Dioxide 33 mmol/L (22-30); Chloride 97 mmol/L (98-107); Estimated Creatinine Clearance 36 ml/min; Glucose 111 mg/dl (70-99); Magnesium 2.9 mg/dl (1.6-2.3); Potassium 4.2 mmol/L (3.5-5.1); Sodium 139 mmol/L (135-145); Total Bilirubin 0.9 mg/dl (0.2-1.3); Total Protein 7.1 g/dl (6.3-8.2); eGFR 38.03
--- NOTE | 2024-06-29 10:07 | PTCARENOTE ---
Pt w/ epistaxis this morning - R nare > L. O2 already being humidified. Given afrin. Bleeding eventually resolved.
--- NOTE | 2024-06-29 13:02 | W.PN.CARDCBS ---
Today's Communication / Plan
-
Check echo to reevaluate left ventricular systolic function.
Continue IV lasix 80 mg BID.
Monitor daily wts, Is and Os and cr.
She was at least 5 lbs on admission, from her recent d/c wt.
Consider nephrology eval given elevated BUN
IR to eval for possible thoracentesis per primary service.
Known frequent PVCs, previously managed with Cardizem CD for frequent, asymptomatic PVCs. During one of her recent admissions she was changed to Toprol XL 25 mg daily which was then stopped during her 04/2024 admission due hypotension. Resume Toprol
XL 12.5 mg daily in AM. Follow tele.
Impression / Plan
-
.
PCP: Cris Avilez PA-C
Area Attendant: Dr. Ott
Impression:
Admitted with acute on chronic hypoxic respiratory failure and acute HF 06/27/24
Acute on chronic HFmrEF 10/01/23
EF 45-50% by echo 10/01/23
ALMA on CKD 3b
Markedly elevated BUN
Chronic hypoxic respiratory failure on home oxygen 2 L via NC
Abnormal chest x-ray
frequent PVCs and bigeminy
Asthma/COPD
Chronic Lymphedema and chronic venous stasis changes
Eptistaxis
Hypertension
HLD
DM II
MARIAMA, untreated
Peripheral Neuropathy
History of DVT
Morbid Obesity
Medication and dietary non-adherence
Hypokalemia
Echo 08/22/21:�LVEF 53%, mild LVH, Mild MR, Mild 20/10 PRECIOUS 1.7cm2, mild AI
Echo 03/24/22: Technically limited study and patient was scanned in a wheelchair. No regional wall motion abnormalities are seen. LV ejection fraction is 53% by Phan's biplane method�of discs. Mild left ventricular hypertrophy. Normal diastolic
function. Mild mitral regurgitation is seen. This may be underestimated due to acoustic shadowing. Mild aortic stenosis. Peak/mean gradients across the aortic valve 20/10 mmHg. Using an LVOT diameter�of 2.0 cm the aortic valve by the Continuity
equation is calculated at 1.7 cm2. Mild aortic regurgitation.
Echo 12/18/2022:�EF 40-45%, global hypokinesis, moderate cLVH, stage II diastolic dysfunction, mild MS, mild MR, severely dilated LA, moderate with peak/mean gradients 45/20 mmHg, PRECIOUS 1.2 cm2, mild AR, mild TR, estimated PAP 42 mmHg,
Echo 03/16/2023: EF 45-50%, moderate cLVH, global hypokinesis, mild MR, mild to moderate with peak/mean gradients 21/12 mmHg, mild TR, estimated PAP 30-35 mmHg
ECHO 10/01/23: EF 45 to 50%, global hypokinesis, moderate to severe concentric LVH, stage II diastolic dysfunction, mildly dilated RV, mitral sclerosis, mild to moderate , peak/mean gradients 26/18 mmHg, mild AR, mild to moderate TR, PAP 60 to 65
mmHg
Plan:
Check echo to reevaluate left ventricular systolic function.
Continue IV lasix 80 mg BID.
Monitor daily wts, Is and Os and cr.
She was at least 5 lbs on admission, from her recent d/c wt.
Consider nephrology eval given elevated BUN
IR to eval for possible thoracentesis per primary service.
Known frequent PVCs, previously managed with Cardize CD for frequent, asymptomatic PVCs. During one of her recent admissions she was changed to Toprol XL 25 mg daily which was then stopped during her 04/2024 admission due hypotension. Resume Toprol
XL 12.5 mg daily in AM. Follow tele.
Imdur ER stopped during 04/2024 admission due to hypotension and because it was no longer needed. Imdur was started in the past during an attempt to start nitrates and hydralazine for reduced EF and inability to take KAROLINA/ARB. Will stop Imdur ER.
Previously declined SGLT-2 due to risk of infection as she is almost bedbound and incontinent.
Replete lytes as needed
-KCl given 06/28/24
Primary service to address epistaxis
Discussed with primary service.
Progress Note - Area Attendant
Subjective
Date of Service: June 29, 2024
Pt seen and examined. No chest pain. Breathing better
Objective
Labs:
06/29/24 06:50
06/29/24 06:50
Labs
Hgb 11.2 g/dL (12.0-16.0) L 06/29/24 06:50
Hct 35.8 % (37.0-47.0) L 06/29/24 06:50
Plt Count 217 10^3/uL (130-400) 06/29/24 06:50
Sodium 139 mmol/L (135-145) 06/29/24 06:50
Potassium 4.2 mmol/L (3.5-5.1) D 06/29/24 06:50
BUN 138 mg/dl (7-17) H* 06/29/24 06:50
Creatinine 1.4 mg/dL (0.6-1.0) H 06/29/24 06:50
Glucose 111 mg/dl (70-99) H 06/29/24 06:50
Vital Signs and I&O:
Vital Signs
Temp Pulse Resp BP Pulse Ox
97.5 F 76 18 135/77 94
06/29/24 11:44 06/29/24 11:44 06/29/24 11:44 06/29/24 11:44 06/29/24 12:37
Vital Signs
Temp Pulse Resp BP Pulse Ox
97.5 F 76 18 135/77 94
06/29/24 11:44 06/29/24 11:44 06/29/24 11:44 06/29/24 11:44 06/29/24 12:37
Intake & Output
06/27/24 06/28/24 06/29/24 06/30/24
06:59 06:59 06:59 06:59
Intake Total 210 / 210 240 / 240
Output Total 200 / 200 500 / 500
Balance -260 / -260
Physical Exam
Physical Exam
General: No acute distress, AAOX3
Neck: Negative JVD
Heart: Regular, Negative S3 positive S1/S2, Negative S4, No murmur
Lungs: CTA b/l, negative wheezes/rales/rhonchi
Abd: Truncal obesity positive BS, NT/ND, neg rebound/rigidity/guarding
Ext: Negative cyanosis/clubbing. Significant bilateral lymphedema
Neuro: nonfocal
Skin: Venous stasis skin changes
[2024-06-29] MEDS: OCEAN, SALINE MIST 2 SPRAYS NASAL (13:27)
--- NOTE | 2024-06-29 15:39 | W.CON.NEPH ---
Consultation
-
Date/Time Consultation Requested: June 29, 2024 at 3 PM
Date/Time Consultation Performed: June 29, 2024 at 3:30 PM
Requesting Provider: Dr. Trista Jimenez
Performing Provider: Dr. Driss Harper
Reason for Consultation: acute or chronic kidney disease
Medical History
-
Chief Complaint: shortness of breath
History of Present Illness:
78-year-old female with past medical history significant for hypertension, hyperlipidemia, HFrEF, CKD stage III, asthma, chronic hypoxic respiratory failure with home oxygen, peripheral neuropathy, and history of DVT who presented to [facility]
for evaluation of increased shortness of breath.
nephrology consult for acute or chronic kidney disease with increased azotemia with a BUN of 149
recent admission last month for the cellulase and hypotension. Diuretics or held for a period of time but she was discharged on Lasix 80 mg twice a day withholding metolazone. the metolazone was restarted at rehab
she to rapid weight gain in acute shortness of breath therefore admitted to hospital. she is a right pleural effusion and she is about 5 to 7 kilogram weight gain
she's also developed significant epitaxis since yesterday
Past Medical History
COVID-19 treated with Paxlovid and Decadron 07/27/2021 - 07/31/2023
Chronic hypoxic respiratory failure on home oxygen 1-2 L via NC
Chronic HFrEF (40-45%)
Frequent PVCs and bigeminy
Asthma
Chronic Lymphedema and chronic venous stasis changes
Hypertension
HLD
DM II
MARIAMA
Peripheral Neuropathy
History of DVT
Morbid Obesity
Social History
Tobacco: Non-Smoker
Alcohol: None
Drug: None
Living: With Family
Employment: Disabled
Family History
Family History: Not Pertinent
Allergies / Home Medications
Allergy/AdvReac Type Severity Reaction Status Date / Time
albuterol Allergy 'could not Verified 05/23/24 20:00
breath'
ceftriaxone [From Rocephin] Allergy Rash Verified 05/23/24 20:00
08/28/23
admission
cefuroxime [From Ceftin] Allergy facial Verified 05/23/24 20:00
droop,lip
swell/Margie
cefepime,
cefazolin
latex Allergy Rash Verified 05/23/24 20:00
levofloxacin [From Levaquin] Allergy facial Verified 05/23/24 20:00
droop,
rash,
numbness
lisinopril Allergy Shortness Verified 05/23/24 20:00
of Breath
naproxen Allergy Rash Verified 05/23/24 20:00
NSAIDS (Non-Steroidal Allergy Rash Verified 05/23/24 20:00
Anti-Inflamma
poison aroldo extract Allergy Unknown Verified 05/23/24 20:00
poison oak extract Allergy Unknown Verified 05/23/24 20:00
�Medication �Instructions �Recorded �Confirmed �Type
acetaminophen 650 mg 1,300 mg PO BIDPRN PRN mild pain 12/15/23 06/27/24 History
tablet,extended release
ammonium lactate 12 % topical cream 1 applic topical BID B/L lower legs 12/15/23 06/27/24 History
aspirin 81 mg tablet,delayed 81 mg PO DAILY Blood Clot 12/15/23 06/27/24 History
release Prevention/Tx
atorvastatin 20 mg tablet 20 mg PO HS High Cholesterol 12/15/23 06/27/24 History
diclofenac sodium 1 % topical gel 2 g topical QIDPRN PRN B/L knees 12/15/23 06/27/24 History
##0
miconazole nitrate 2 % topical 1 applic topical BIDPRN PRN B/L 12/15/23 06/27/24 History
powder (Miconazorb AF) breasts/groin
potassium chloride 20 mEq 40 meq PO SA Electrolyte Repletion 12/15/23 06/27/24 History
tablet,extended release(part/cryst)
levalbuterol tartrate 45 2 inh inhalation R Q6HPRN PRN 02/13/24 06/27/24 History
mcg/actuation aerosol inhaler SOB/WHEEZING
(Xopenex HFA)
Lactobac no.2-Bifidobac no.1-S. 1 cap PO Q48H Supplement 02/14/24 06/27/24 History
thermo 112.5 billion cell capsule
(Visbiome)
ferrous sulfate 325 mg (65 mg 325 mg PO DAILY Supplement 05/23/24 06/27/24 History
iron) tablet (FeroSul)
bisacodyl 10 mg rectal suppository 10 mg SC DAILYPRN PRN no bm 8 hrs 06/27/24 06/27/24 History
(Dulcolax (bisacodyl)) after mom
fluticasone 250 mcg-salmeterol 50 1 inh inhalation R BID 06/27/24 06/27/24 History
mcg/dose blistr powdr for
inhalation
furosemide 40 mg tablet 80 mg PO BID 06/27/24 06/27/24 History
lidocaine 4 % topical patch 2 patch topical DAILYPRN PRN B/L 06/27/24 06/27/24 History
shoulders
magnesium hydroxide 400 mg/5 mL 30 ml PO [id number] PRN no bm x2 days 06/27/24 06/27/24 History
oral suspension (Milk of Magnesia)
metolazone 2.5 mg tablet 2.5 mg PO FR 06/27/24 06/27/24 History
sodium phosphates 19 gram-7 118 ml SC DAILYPRN PRN no bm 8 hrs 06/27/24 06/27/24 History
gram/118 mL enema (Fleet Enema) after dulcolax
Review of Systems
-
shortness of breath with weight gain and acute epi-taxis
All other systems: Negative unless noted
Physical Exam
Vital Signs
Vital Signs
Temp Pulse Resp BP Pulse Ox
97.5 F 72 18 135/75 97
06/29/24 15:30 06/29/24 15:30 06/29/24 15:30 06/29/24 15:30 06/29/24 15:30
Lab Results
WBC 6.6 10^3/uL (4.8-10.8) 06/29/24 06:50
RBC 3.96 10^6/uL (4.20-5.40) L 06/29/24 06:50
Hgb 11.2 g/dL (12.0-16.0) L 06/29/24 06:50
Hct 35.8 % (37.0-47.0) L 06/29/24 06:50
Plt Count 217 10^3/uL (130-400) 06/29/24 06:50
Sodium 139 mmol/L (135-145) 06/29/24 06:50
Potassium 4.2 mmol/L (3.5-5.1) D 06/29/24 06:50
Chloride 97 mmol/L (98-107) L 06/29/24 06:50
Carbon Dioxide 33 mmol/L (22-30) H 06/29/24 06:50
BUN 138 mg/dl (7-17) H* 06/29/24 06:50
Creatinine 1.4 mg/dL (0.6-1.0) H 06/29/24 06:50
eGFR 38.03 06/29/24 06:50
Glucose 111 mg/dl (70-99) H 06/29/24 06:50
Calcium 7.9 mg/dl (8.4-10.2) L 06/29/24 06:50
Abr-K-Lyitbdqmjsl Pept 28876 pg/ml 06/29/24 06:50
Albumin 3.2 g/dl (3.5-5.0) L 06/29/24 06:50
Physical Exam
General: AOx3, No Distress and Nontoxic
HEENT: PERRL, EOMI, Anicteric, Conjunctivae Clear, Ear/Nose Intact and Hearing Normal
Respiratory: Other (difficult to aucultate due to body habitus)
Cardiac: S1/S2, Regular Rate/Rhythm and Edema
Breast: Deferred by me
Abdomen: Soft, Nontender, Nondistended and Normal Bowel Sounds
Rectal: Deferred by Provider
Genito-urinary: Clear Urine
Musculoskeletal: Edema
Skin: Warm, Dry and Other (rash on bilateral upper extremities. lower extremities wrapped)
Neuro: Nonfocal/Grossly Intact
Psych: Mood/afflect pleasant, Insight/judgement good and Appropriate
Data Reviewed
-
Radiology: Image Personally Visualized and interpreted ( right pleural effusion on chest x-ray)
Labs: Labs Reviewed by me
Assessment/Plan
-
78-year-old female with past medical history significant for hypertension, hyperlipidemia, HFrEF, CKD stage III, asthma, chronic hypoxic respiratory failure with home oxygen, peripheral neuropathy, and history of DVT who presented to [facility]
for evaluation of increased shortness of breath.
chest x-ray with a pleural effusion and a BUN of 149 with a creatinine of 1.4 and acute epistaxis
Assessment:
ALMA on CKD 3 (bl Cr 1.3-1.5) with a BUN of 149
ADHF (EF 40-45%)
LE wounds with chronic lymphedema
HTN
DLDAsthma
MARIAMA
RLE DVT 2019
morbid obesity
Plan:
acute kidney injury with ratio BUN to creatinine greater than 20:1. With metabolic alkalosis on admission and bicarb of 37 on admission which could be compensating for CO2 retention, over diueresis, and or significant nosebleed increasing urea.
having said that she had a 7 kg (15Lbs) increase from discharge one month ago where she was 98 kg and presented at 106 kg. as of today her weight is 100 kg with diuresis and IV Lasix
I will check and ABG
continue Lasix for now. watch bicarb closely, On May 24, 2024 she was as low as 94 kg
may need to consider Diamox
pending thoracentesis tomorrow
discuss this with her medical nurse
--- NOTE | 2024-06-29 15:49 | PTCARENOTE ---
Epistaxis returned and is persistent. Hospitalist made aware and are consulting ENT. SubQ heparin placed on hold.
[2024-06-29 16:23] LABS: B.E. 8.8 mmol/L; HCO3 32.7 mmol/L (21-28); O2 Saturation % 92.8 % (94-98); PCO2 41 mmHg (32-35); Potassium 4.9 mMOL/L (3.5-5.1); Sodium 135 mMOL/L (136-145); pH 7.51 (7.35-7.45)
[2024-06-29 16:38] LABS: PO2 59 mmHg (83-108)
--- NOTE | 2024-06-29 16:47 | CON.MD ---
Consultation - Medical
-
Epistaxis
78 yo c Hx HTN, kidney disease, chronic hypoxia on O2, presented c SOB, CHF
Being diuresed, sats ok
c/o epistaxis, R >L for the last day
Hgb - 11
On ASA and subQ heparin, BP controlled
PE - SOB
Clot in bilat nares but more noted on right, some active dripping
Some clot in oropharynx, but no active bleeding in oropharynx
A/P Epistaxis
5.5 cm anterior balloon placed on right, 6 cc air
Helped eliminate active R sided bleeding
Would leave pack in place for about 3 days
Can add additional few cc's of air to R pack if needed
Would provide oxygen via humidified face mask and monitor O2 sats
Prophylactic antibiotics while packed such as Amoxicillin or similar
--- NOTE | 2024-06-29 16:51 | W.PN.PUL3 ---
Today's Communication / Plan
-
Continue with current care from the pulmonary perspective
Diuresis per nephrology and cardiology
Follow renal function
Epistaxis-ENT seen the patient.
Discontinue nasal cannula
Use facial mask with humidified oxygen
No evidence for acute exacerbation of asthma/COPD.
Will follow
Assessment
-
Assessment: 78-year-old female non-smoker with a past medical history of DVT, asthma, MARIAMA intolerant to CPAP, DM type II, chronic venous stasis dermatitis, history of COVID-19, HFmrEF, and chronic hypoxic respiratory failure on home O2 who
presents from [facility] with SOB. Patient reports that she woke up on the morning of arrival with increased shortness of breath and had weight gain. She believes she has gained about 7 pounds. In the ER she was afebrile to 97.6 �F, heart rate
80, breathing at 23 breaths/min, BP 116/76 and saturating 92% on 2 L/min. Labs showed Hb 11.4, serum bicarbonate level 37, BUN 149, creatinine 1.3, proBNP 15,200 and COVID-19 antigen negative. Flu A/B also negative and CXR showed pulmonary
vascular congestion consistent with CHF exacerbation. She was given Xopenex in the ER +80 mg Lasix and admitted to telemetry. Pulmonary service now consulted for additional management/recommendations.
Chronic conditions WATCH CASER: DVT (right sided mid/distal femoral vein which was nearly occlusive seen via duplex ultrasound from October 2019), asthma, obesity, MARIAMA intolerant to CPAP, hypertension, hypercholesterolemia, DM type II, chronic venous stasis
dermatitis, history of COVID-19, anemia, HFmrEF, chronic hypoxic respiratory failure on home O2, chronic wounds on legs/back
Impression:
#Acute decompensated heart failure/acute HFmrEF exacerbation
#Acute on chronic respiratory failure with hypoxia (on 2 L/min ATC at baseline)
#Acute uremia with severely elevated BUN
#Moderate COPD/asthma maintained on Advair 115mcg + prn xopenex - not currently in an acute exacerbation
#CKD (baseline creatinine 1.4�1.6)
#Valvular heart disease with mild�moderate aortic stenosis via echo from November 2023
#Moderate pulmonary hypertension with PASP: 51 mmHg with mildly dilated RV via echo from November 2023
#History of eosinophilia (absolute eosinophil count was 800 on 02/19/2024)
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
#History of RLE DVT (10/2019 involving the mid/distal right femoral vein)
#Hx of COVID-19
#MARIAMA intolerant to CPAP
Plan:
- Although BUN is elevated, she continues to be short of breath and recent proBNP was severely elevated with CXR showing extremely low lung volumes with pulmonary vascular congestion from CXR on 06/27/2024
- No evidence for COPD exacerbation given she reports orthopnea, and her BNP is markedly elevated and given her CXR findings
- Continue with diuresis as per cardiology
-Nephrology now following the patient as well.
- Continue to trend BUN and sCr; trend UOP and I/O
- Hold off on systemic steroids for now and continue to monitor
- Maintain SpO2 88-95% with supplemental O2 and wean down as tolerated
- Continue Advair 115mcg with prn xopenex
- Mucolytics as needed
- Re-check echo to assure her aortic stenosis is not worsening-pending.
- Doubt that she has a DVT/PE given she is not tachycardic and is only minimally more hypoxic than baseline, however if O2 requirements worsen then would at least re-check lower extremity duplex and consider CTA chest; if echo shows significant RV
dysfunction then would start heparin drip and check CTA chest.
ABG noted: .(Mixed ventilatory disorder) likely has component of chronic hypercapnic respiratory failure. Not decompensated at this point.
Epistaxis: ENT at the bedside addressing.
Discontinue nasal cannula
Will use humidified oxygen via mask.
- Incentive spirometer encouraged q1hr while awake
- Replete electrolytes with K>4, Mg>2
- Maintain euglycemia with goal BG >100 and <180
- prn nebulized bronchodilators - she is wheezing but I believe this is a cardiac wheeze
- DVT ppx: HSQ
Pulmonary service will continue to follow along. She will need to continue following up with our office as last visit on 12/07/2023 with DAVID Cherry.
Data:
CXR 06/27/2024: Extremely low lung volumes; Cardiomegaly with increased pulmonary vascularity suggesting CHF.
Subjective Data
-
Date of Service:
Date of Service: June 29, 2024
Chief Complaint: Pulmonary Follow Up (Shortness of breath/chronic hypoxemic respiratory failure)
Subjective:
Has developed epistaxis
Remains on low rate supplemental oxygen via nasal cannula
Denies worsening shortness of breath or chest
Review of Systems
HEENT: Epistaxis
Cardiopulmonary: Dyspnea and Dyspnea on Exertion
Objective Data
Data Reviewed
Vital Signs / I&O / Oxygen:
Vital Signs
Temp Pulse Resp BP Pulse Ox
97.5 F 72 18 135/75 97
06/29/24 15:30 06/29/24 15:30 06/29/24 15:30 06/29/24 15:30 06/29/24 15:30
Intake and Output
06/28/24 06/29/24 06/30/24
06:59 06:59 06:59
Intake Total 210 / 210 240 / 240
Output Total 200 / 200 500 / 500 400 / 400
Balance -260 / -260 -400 / -400
SaO2 97
Nasal Cannula flow liters per 2
minute
Labs/Micro/Reports
Lab Data
06/29/24 06:50
06/29/24 06:50
Laboratory Results
06/29/24
16:15
pH 7.51 H
pCO2 41 H
pO2 59 L*
HCO3 32.7 H
O2 Delivery Level
Microbiology
06/27/24 16:14 Nasal Swab Influenza Types A & B (ROBER) - Final
Negative for Influenza A & B, NAAT
Negative results must be combined with clinical observations
and patient history.
Nucleic Acid Amplification test (NAAT)performed on the
[employer] platform.
[2024-06-29] MEDS: AMOXIL 500 MG PO (17:07)
--- NOTE | 2024-06-29 17:45 | PTCARENOTE ---
R nare packed by ENT. Still has some blood oozing from nares which is to be expected per ENT. RT came and set pt up on humidified face mask.
[2024-06-29] MEDS: LIPITOR PO (21:43)
--- NOTE | 2024-06-29 23:00 | PTCARENOTE ---
Pt arrived to unit @ 2300 from [facility] was transported by via tech. Pt was a caul puller in the bed. Pt transferred up with R-nare packed d/t and episode of epitaxis. pt on face tent @ 28% humidified O2 with respiratory assisting. RN completed assessment
and started on wound care for patient all of wound care was completed on 06/30/2024 @ 0600. Pt on the [employer]. call [email or web address] within reach
[2024-06-30] MEDS: AMOXIL 500 MG PO ×3 (01:29→16:15)
[2024-06-30 03:05] VITALS: BP 121/71
[2024-06-30 06:00] VITALS: BMI 39.8
--- NOTE | 2024-06-30 07:11 | W.PN.HOSP.TC ---
Addendum entered and electronically signed by Kori Maurice MD 06/30/24 14:45:
I saw and evaluated the patient independently. I reviewed the resident�s note and agree with findings and plan as documented by Dr. Jimenez.
GENERAL: chronically ill appearing female significantly SOB
HEENT: NC/AT----packing in right nostril so on face tent (cannot wear NC O2)
HEART: regular rate and rhythm, +S1, +S2 with ectopy
LUNGS : decreased breath sounds bilaterally
ABDOM: soft, nontender, nondistended, + bowel sounds
EXT: no cyanosis, clubbing--venous stasis color changes to legs with 3+ LE edema bilaterally--legs wrapped with gauze--chronic wounds
NEUROLOGIC: nonfocal
Acute on chronic HFrEF exacerbation--weights up over the last week--pro BNP 15,200--apprec cards--cont lasix 80 mg IV BID--follow weights, I/Os--cont aspirin, potassium chloride and replete as needed--repeat ECHO with decreased EF 40-45%, stage 1
diastolic dysfunction, severe dilated right atrium and severe dilated hypocontractile right ventricle
acute on chronic hypoxic respiratory failure with home oxygen--cont supplemental O2--covid/flu neg--cont nebs--apprec pulm--? PE with echo findings but cannot do CT scan with elevated creat, cannot do IV heparin with nosebleed, don't think V/Q would
be helpful, doesn't appear to have enough fluid for thoracentesis....await pulm input
essential HTN--cont IV lasix--cont meds as able--some were stopped on previous admissions for hypotension
nosebleeds--no help with humidified O2, afrin, ocean nasal spray--apprec ENT in AM
hyperlipidemia-- continue atorvastatin
CKD stage III--BUN 149, Creat 1.3--follow with diuresis--apprec renal
chronic wounds--apprec wound care
peripheral neuropathy
history of DVT
DVT proph
code status -- FULL CODE
Original Note:
Today's Communication/Plan
-
Thoracentesis pending today
Continue IV Lasix
Assessment / Plan
Assessment / Plan
IMPRESSION:Patient is a 78-year-old female with past medical history significant for hypertension, hyperlipidemia, HFrEF, CKD stage III, asthma, chronic hypoxic respiratory failure with home oxygen, peripheral neuropathy, and history of DVT who
presented to [place] ED for evaluation of increased shortness of breath and weight gain.
ASSESMENT/PLAN:
#Acute on chronic HFrEF
-BNP 12694
-CXR: Extremely low lung volumes.
Cardiomegaly with increased pulmonary vascularity suggesting CHF.
- Consult Cardiology, appreciated
- daily weights--> on adm 106 kg, weight now decreased to 100.3kg, today 101 kg
- monitor I&Os
- Continue IV Lasix
- continue aspirin, metolazone, potassium chloride
- Continue Toprol as per cardiology for frequent asymptomatic PVCs
� Echo pending
#Chronic hypoxic respiratory failure with home oxygen/Asthma
-Covid and influenza negative
-CXR: Extremely low lung volumes.
Cardiomegaly with increased pulmonary vascularity suggesting CHF.
-Patient is chronically on 2 L NC at home, now requiring 3L in hospital
- continue supplemental O2, added humidifier
- maintain SpO2 >93%
- continue home medication regimen
-Consulted pulmonology, appreciated
-CXR 06/29/2024: Right basilar opacity suspicious for pleural fluid
� IR consulted, patient scheduled for thoracentesis today
#Nosebleed
-Currently only on ASA
�Hold heparin subq
-ENT following, appreciated
-Packing of right nostril done to be removed in 2 days and started on amoxicillin as per ENT
#Essential Hypertension
- IV Lasix
- Monitor VS
#Hyperlipidemia
- continue atorvastatin
#CKD stage III
-BUN 149, Creat 1.3 on adm
-BUN decreased, creatinine at baseline.
- monitor BMP
�BUN decreased 133, creatinine around baseline
-Nephrology consulted, appreciated
#Chronic wounds-R plantar heel with healing stage III, sacrum with healing stage III
- wound care following
#Peripheral neuropathy
#History of DVT
Code status: Full Code
DVT Prophylaxis: Heparin Sq
Anticipated Discharge: 24 - 48 hours
Subjective/Interval History
-
Date of Service: June 30, 2024
Patient states that she has mild pain in her nose and continues to have some SOB.
Objective Data
-
Labs:
Laboratory Results
06/30/24
06:00
WBC Pending
Hgb Pending
Hct Pending
Plt Count Pending
Sodium Pending
Potassium Pending
Chloride Pending
Carbon Dioxide Pending
BUN Pending
Creatinine Pending
Glucose Pending
Calcium Pending
Vital Signs:
Vital Signs
Temp Pulse Resp BP Pulse Ox
98.1 F 70 19 121/71 99
06/30/24 03:05 06/30/24 03:05 06/30/24 03:05 06/30/24 03:05 06/30/24 03:05
I&O
06/29/24 06/30/24 07/01/24
06:59 06:59 06:59
Intake Total 240 / 240
Output Total 500 / 500 1225 / 1225
Balance -260 / -260 -1225 / -1225
Review of Systems
-
Constitutional: Denies Fever
EENT: Reports Bloody Nose
Respiratory: Reports Trouble Breathing
Cardiac: Denies Chest Pain
Abdomen/GI: Denies Abdominal Pain
Genitourinary: Reports No Symptoms
Skin: Reports No Symptoms
Neuro: Reports No Symptoms
Physical Exam
-
General: No Apparent Distress
HEENT: Normocephalic
Respiratory: Decreased Breath Sounds
Cardiac: Regular Rhythm and S1/S2
GI: Soft, Nontender and Nondistended
Musculoskeletal: No Edema
Skin: Warm and Dry
Neuro: Awake, Alert and Oriented
Psych: Calm
[2024-06-30 07:27] VITALS: BP 123/68
[2024-06-30 08:01] LABS: % Immature Granulocytes 0.7 % (0-0.5); % Lymphocytes 6.8 % (20.5-51.1); % Neutrophils 78.5 % (42.2-75.2); Absolute Basophils 0.1 10^3/uL (0-0.2); Absolute Eosinophils 0.1 10^3/uL (0-0.7); Absolute Immature Granulocytes 0.1 10^3/uL (0-0.05); Absolute Lymphocytes 0.5 10^3/uL (1.2-3.4); Absolute Monocytes 0.9 10^3/uL (0.1-0.6); Absolute Neutrophils 5.5 10^3/uL (1.4-6.5); Hematocrit 38.1 % (37.0-47.0); Hemoglobin 11.6 g/dL (12.0-16.0); Mean Corp Hgb Conc. 30.4 g/dL (33.0-37.0); Mean Corpuscular Hgb 28.1 pg (27.0-31.0); Mean Corpuscular Volume 92.3 fL (81.0-99.0); Nucleated Red Blood Cells % 0 %; Platelet Count 204 10^3/uL (130-400); Red Blood Cell Count 4.13 10^6/uL (4.20-5.40); Red Cell Dist. Width 19.6 % (11.5-14.5); White Blood Cell Count 7.1 10^3/uL (4.8-10.8)
[2024-06-30 08:35] LABS: Calcium 8.3 mg/dl (8.4-10.2); Carbon Dioxide 35 mmol/L (22-30); Chloride 98 mmol/L (98-107); Estimated Creatinine Clearance 34 ml/min; Glucose 106 mg/dl (70-99); Potassium 4.6 mmol/L (3.5-5.1); Sodium 142 mmol/L (135-145); eGFR 35.01
--- NOTE | 2024-06-30 08:43 | W.PN.PUL3 ---
Addendum entered and electronically signed by Ronan Cunningham MD 06/30/24 19:11:
Total time spent today was 37 minutes for this encounter. Time includes reviewing laboratory test/imaging results, reviewing pertinent medical records, obtaining and reviewing medical history, performing an appropriate exam, ordering medications,
tests and procedures. Time also includes documentation of this encounter, coordinating patient care and communicating with other healthcare professionals. Total time does not include separately billed tests performed on this date of service.
Original Note:
Today's Communication / Plan
-
Continue with current care from the pulmonary perspective
Diuresis per nephrology and cardiology
Follow renal function
Epistaxis-ENT managing nasal packing; continue amoxicillin
Continue facial tent with humidified oxygen
No evidence for acute exacerbation of asthma/COPD.
Will follow
Assessment
-
Assessment: 78-year-old female non-smoker with a past medical history of DVT, asthma, MARIAMA intolerant to CPAP, DM type II, chronic venous stasis dermatitis, history of COVID-19, HFmrEF, and chronic hypoxic respiratory failure on home O2 who
presents from [facility] home with SOB. Patient reports that she woke up on the morning of arrival with increased shortness of breath and had weight gain. She believes she has gained about 7 pounds. In the ER she was afebrile to 97.6 �F, heart rate
80, breathing at 23 breaths/min, BP 116/76 and saturating 92% on 2 L/min. Labs showed Hb 11.4, serum bicarbonate level 37, BUN 149, creatinine 1.3, proBNP 15,200 and COVID-19 antigen negative. Flu A/B also negative and CXR showed pulmonary
vascular congestion consistent with CHF exacerbation. She was given Xopenex in the ER +80 mg Lasix and admitted to telemetry. Pulmonary service now consulted for additional management/recommendations.
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
dermatitis, history of COVID-19, anemia, HFmrEF, chronic hypoxic respiratory failure on home O2, chronic wounds on legs/back
Impression:
#Acute decompensated heart failure/acute HFmrEF exacerbation
#Acute on chronic respiratory failure with hypoxia (on 2 L/min ATC at baseline)
#Acute uremia with severely elevated BUN
#Acute epistaxis s/p nasal packing
#Moderate COPD/asthma maintained on Advair 115mcg + prn xopenex - not currently in an acute exacerbation
#CKD (baseline creatinine 1.4�1.6)
#Valvular heart disease with mild�moderate aortic stenosis via echo from November 2023
#Moderate pulmonary hypertension with PASP: 51 mmHg with mildly dilated RV via echo from November 2023
#History of eosinophilia (absolute eosinophil count was 800 on 02/19/2024)
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
#History of RLE DVT (10/2019 involving the mid/distal right femoral vein)
#Hx of COVID-19
#MARIAMA intolerant to CPAP
Plan:
- Although BUN is elevated, she continues to be short of breath and recent proBNP was severely elevated with CXR showing extremely low lung volumes with pulmonary vascular congestion from CXR on 06/27/2024
- No evidence for COPD exacerbation given she reports orthopnea, and her BNP is markedly elevated and given her CXR findings
- Continue with diuresis as per cardiology
- Nephrology recs appreciated
- Continue to trend BUN and sCr; trend UOP and I/O
- Hold off on systemic steroids for now and continue to monitor
- Maintain SpO2 88-95% with supplemental O2 and wean down as tolerated
- Continue Advair 115mcg with prn xopenex
- Mucolytics as needed
- Echo rechecked today showing worsening RV dilation + worsening TR --> concern for acute PE; given her ALMA, would check VQ scan and lower extremity duplex; unfortunately unable to empirically treat with parenteral heparin versus NOAC given her
acute epistaxis; surprisingly there is no aortic stenosis seen on the current study and there is mild�moderate AI
Patient was going to get a thoracentesis today however there is a small right effusion seen on chest ultrasound from 06/30/2024 and no left-sided pleural effusion. Not enough fluid for safe thoracentesis
ABG from 06/29/2024 noted: 7.51/41/59 -metabolic alkalosis with appropriate respiratory compensation
Epistaxis: ENT performed nasal packing of right nare; continue with amoxicillin; nasal packing management as per ENT
Continue humidified oxygen via mask while keeping SpO2 88-95%
She is on daily baby ASA, which may need to be stopped if her Hb downtrends or if epistaxis persists/worsens
- Incentive spirometer encouraged q1hr while awake
- Replete electrolytes with K>4, Mg>2
- Maintain euglycemia with goal BG >100 and <180
- prn nebulized bronchodilators - not wheezing today (06/30/2024)
- DVT ppx: SCDs for now
Pulmonary service will continue to follow along. She will need to continue following up with our office as last visit on 12/07/2023 with DAVID Cherry.
Data:
Chest US 06/30/2024: Small right pleural effusion. No left pleural effusion. Amount of fluid present not sufficient for safe thoracentesis.
CXR 06/27/2024: Extremely low lung volumes; Cardiomegaly with increased pulmonary vascularity suggesting CHF.
Subjective Data
-
Date of Service:
Date of Service: June 30, 2024
Chief Complaint: Pulmonary Follow Up (Shortness of breath/chronic hypoxemic respiratory failure)
Subjective:
Patient seen and evaluated this morning. She says that she is short of breath given the catheter in her nose. There is some dark, congealed blood that is still coming out of her nose/back of throat as per the nurse. She is currently on a 28% FiO2
face tent. She denies chest pain, DOBBINS, abdominal pain, nausea, fevers chills.
Review of Systems
General: Other (Negative unless mentioned above)
Objective Data
Data Reviewed
Vital Signs / I&O / Oxygen:
Vital Signs
Temp Pulse Resp BP Pulse Ox
98.2 F 66 18 123/68 96
06/30/24 07:27 06/30/24 07:27 06/30/24 07:27 06/30/24 07:27 06/30/24 07:27
Intake and Output
06/29/24 06/30/24 07/01/24
06:59 06:59 06:59
Intake Total 240 / 240
Output Total 500 / 500 1225 / 1225
Balance -260 / -260 -1225 / -1225
SaO2 96
Nasal Cannula flow liters per 6
minute
Physical Exam
General: Respiratory Distress (negative), Chills (negative) and Sweats (negative)
HEENT: Normocephalic, Anicteric and Other (Nasal packing in right naris with no active bleeding seen)
Cardiovascular: S1-S2, Peripheral Edema (+1 lower extremity edema bilaterally) and Other (Frequent extrasystoles)
Respiratory: Wheeze (negative), Crackles (Bilateral), Rhonchi (negative), Stridor (negative) and Other (Diminished breath sounds bilaterally)
GI: Soft, Non Distended, Non Tender and Normal Bowel Sounds
Neurology: Awake, Alert and Tremors (negative)
Skin: Warm, Dry, Cyanosis (negative), Jaundice (negative) and Other (Chronic venous stasis dermatitis in the lower extremities with lichenification)
Labs/Micro/Reports
Lab Data
06/30/24 07:34
06/30/24 07:34
Laboratory Results
06/29/24
16:15
pH 7.51 H
pCO2 41 H
pO2 59 L*
HCO3 32.7 H
O2 Delivery Level
Microbiology
06/27/24 16:14 Nasal Swab Influenza Types A & B (ROBER) - Final
Negative for Influenza A & B, NAAT
Negative results must be combined with clinical observations
and patient history.
Nucleic Acid Amplification test (NAAT)performed on the
[employer] platform.
[2024-06-30] MEDS: ADVAIR HFA 115/21 MCG INHALER 2 PUFF INH ×2 (08:44→20:37)
[2024-06-30 08:52] LABS: Blood Urea Nitrogen 133 mg/dl (7-17)
[2024-06-30] MEDS: KCL 40 MEQ PO (08:59)
[2024-06-30] MEDS: LIDOCAINE 4% PATCH TOPICAL ×2 (08:59→09:18)
[2024-06-30] MEDS: ASPIR LOW (ENTERIC COATED) 81 MG PO (08:59)
[2024-06-30] MEDS: TOPROL XL 12.5 MG PO (08:59)
[2024-06-30] MEDS: FEOSOL 325 MG PO (09:00)
[2024-06-30] MEDS: VISBIOME 1 CAP PO (09:00)
[2024-06-30] MEDS: LASIX 80 MG IV ×2 (09:01→16:14)
[2024-06-30] MEDS: LAC HYDRIN, AM LACTIN LOTION 1 APPLIC TOPICAL ×2 (09:09→20:25)
[2024-06-30] MEDS: DESENEX/MITRAZOL/ZEASORB 1 APPLIC TOPICAL (09:10)
--- NOTE | 2024-06-30 09:20 | PTCARENOTE ---
Notified Dr Maurice of BUN 133
--- NOTE | 2024-06-30 10:29 | PN.CDI ---
CDI
- -
CDI:
Physician Documentation Request
Admit Date: 06/27/24 19:11
Dear Doctor Trista Jimenez,
Patient admitted for acute heart failure.
06/28 Wound Note: 'R plantar heel with healing stage 3 PI, now clean pink base. Sacrum with healing 3 PI.'
Physician documentation of the type and location of wounds is required for compliant documentation. Based on the above clinical findings and your assessment, please provide the following in your progress note:
1. Location of the ulcer/wound, including laterality.
2. Type (etiology) of ulcer/wound:
- Diabetic ulcer
- Arterial (ischemic) ulcer
- Traumatic wound
- Venous stasis ulcer
- Pressure (decubitus) ulcer
- Non-healing surgical wound
- Other
- Unable to determine
3. For a non-pressure ulcer, please indicate the depth/severity:
- Limited to the breakdown of skin
- With fat layer exposed
- With necrosis of muscle
- With necrosis of bone
- Other
- Unable to determine
4. If a pressure ulcer, please also include the stage* of the ulcer:
- Stage 1 - Skin intact, non-blanchable redness
- Stage 2 - Partial thickness loss of dermis, includes intact or open blister
- Stage 3 - Full thickness tissue not including bone, tendon or muscle
- Stage 4 - Full thickness tissue loss, including exposed bone, tendon or muscle
- Unstageable - Full thickness loss in which the base of the ulcer is covered by slough (yellow, stokes, de la rosa, green or brown) and/or eschar (stokes, brown or black) in the wound bed.
- Unable to determine
Use of terms such as suspected, likely, concern for, or probable (associated with a specific diagnosis that is being evaluated, monitored, or treated as if it exists) are acceptable and can be coded in the inpatient setting, when documented at the
time of discharge.
Thank you,
Rosa Francisco RN, BSN
CDI Specialist
Available via [employer] text
Please use your independent medical judgment in providing your response.
*Source: National Pressure Ulcer Advisory Panel (NPUAP)
--- NOTE | 2024-06-30 10:47 | W.PN.NEPH.PH ---
Today's Communication / Plan
-
no zaroxolyn
Assessment/Plan
-
78-year-old female with past medical history significant for hypertension, hyperlipidemia, HFrEF, CKD stage III, asthma, chronic hypoxic respiratory failure with home oxygen, peripheral neuropathy, and history of DVT who presented to [place] ED
for evaluation of increased shortness of breath.
chest x-ray with a pleural effusion and a BUN of 149 with a creatinine of 1.4 and acute epistaxis
Assessment:
ALMA on CKD 3 (bl Cr 1.3-1.5)
azotemia
decompensated HFmEF (EF 40-45%)
LE wounds with chronic lymphedema
HTN
DLD
Asthma
MARIAMA
RLE DVT 2019
morbid obesity
Plan:
continue IV lasix
no zaroxolyn for now
follow BMP
thoracentesis
-
-
Date of Service: June 30, 2024
CC / HPI / ROS
-
Chief Complaint:
ALMA
History of Present Illness:
ALMA/Cr stable at 1.5
BUN slightly better at 133
epistaxis controlled
Review of Systems:
no CP
Still sob
Labs
-
Labs:
WBC 7.1 10^3/uL (4.8-10.8) 06/30/24 07:34
RBC 4.13 10^6/uL (4.20-5.40) L 06/30/24 07:34
Hgb 11.6 g/dL (12.0-16.0) L 06/30/24 07:34
Hct 38.1 % (37.0-47.0) 06/30/24 07:34
Plt Count 204 10^3/uL (130-400) 06/30/24 07:34
Sodium 142 mmol/L (135-145) 06/30/24 07:34
Potassium 4.6 mmol/L (3.5-5.1) 06/30/24 07:34
Chloride 98 mmol/L (98-107) 06/30/24 07:34
Carbon Dioxide 35 mmol/L (22-30) H 06/30/24 07:34
BUN 133 mg/dl (7-17) H* 06/30/24 07:34
Creatinine 1.5 mg/dL (0.6-1.0) H 06/30/24 07:34
eGFR 35.01 06/30/24 07:34
Glucose 106 mg/dl (70-99) H 06/30/24 07:34
Calcium 8.3 mg/dl (8.4-10.2) L 06/30/24 07:34
Nak-P-Eoxngzxcxvw Pept 47737 pg/ml 06/29/24 06:50
Albumin 3.2 g/dl (3.5-5.0) L 06/29/24 06:50
Physical Exam
-
Vital Signs:
Vital Signs
Temp Pulse Resp BP Pulse Ox
98.2 F 78 20 123/68 93
06/30/24 07:27 06/30/24 08:59 06/30/24 08:46 06/30/24 08:59 06/30/24 08:46
Cardiovascular:: Regular rate and rhythm
Respiratory:: Bilateral: Rales
Lung Excursion:: Normal
Abdomen:: Nontender and Soft
Bowel Sounds:: Normal
Extremity Edema:: +3: Bilateral:
--- NOTE | 2024-06-30 10:50 | W.PN.ENT ---
Today's Communication
-
as above
Impression / Plan
-
Doing well. Packing to be removed in about 2 days.
Subjective Data
-
The patient is doing well with no bleeding but is troubled by moderate pain with the packing as well as a globus sensation.
Objective Data
-
Vital Signs
Temp Pulse Resp BP Pulse Ox
98.2 F 78 20 123/68 93
06/30/24 07:27 06/30/24 08:59 06/30/24 08:46 06/30/24 08:59 06/30/24 08:46
Intake & Output
06/29/24 06/30/24 07/01/24
06:59 06:59 06:59
Intake:
Oral fluids 240 / 240
Output:
Urine, Voided 500 / 500 1225 / 1225
Other:
Number of approximated LARGE 1
amounts of urine
How many times incontinent 1
MODERATE amount urine
Lab Results
06/30/24 07:34
06/30/24 07:34
Calcium 8.3 mg/dl (8.4-10.2) L 06/30/24 07:34
Magnesium 2.9 mg/dl (1.6-2.3) H 06/29/24 06:50
Total Bilirubin 0.9 mg/dl (0.2-1.3) 06/29/24 06:50
AST 24 U/L (14-36) 06/29/24 06:50
ALT 18 U/L (0-35) 06/29/24 06:50
Alkaline Phosphatase 119 U/L (38-126) 06/29/24 06:50
Triglycerides 76 mg/dl (10-149) 06/28/24 06:50
LDL Cholesterol, Calc 37 mg/dl 06/28/24 06:50
VLDL Cholesterol, Calc 15 mg/dl (0-30) 06/28/24 06:50
HDL Cholesterol 41 mg/dl 06/28/24 06:50
Physical Exam
-
Packing in place on right with no bleeding. Left side is clear with no clot
There is a clot but no active bleeding in oropharynx.
This is cleared by gargling.
[2024-06-30 11:16] VITALS: BP 120/65
--- NOTE | 2024-06-30 14:15 | W.PN.CARDCBS ---
Addendum entered and electronically signed by Maverick Ott MD 06/30/24 14:56:
I saw and examined the patient.
The STRUCTURES TECHNICIAN or PA's note was reviewed and I agree with the note.
Comment: General: Well developed, well nourished in NAD.
Neck: Supple, no JVD, HJR, carotids +2 B/L, no bruits bilaterally.
Heart: Non displaced PMI, RRR, no murmurs, No S3, S4, no rubs.
Lungs: Scattered rhonchi
Extremities: Chronic severe lymphedema
Neuro: Grossly nonfocal, awake, alert and oriented x3.
She remains a very difficult examination. Her dry weight was felt to be 212 pounds in April 2024. She is currently 224 pounds. Will continue IV Lasix. Echocardiogram with slightly decreased ejection fraction and worsening RV dysfunction.
Original Note:
Today's Communication / Plan
-
Cont IV diuresis
Impression / Plan
-
.
PCP: Cris Avilez PA-C
Cash Clerk: Dr. Ott
Impression:
Admitted with acute on chronic hypoxic respiratory failure and acute HF 06/27/24
Acute on chronic HFmrEF 10/01/23
EF 45-50% by echo 10/01/23
ALMA on CKD 3b
Markedly elevated BUN
Chronic hypoxic respiratory failure on home oxygen 2 L via NC
Abnormal chest x-ray
frequent PVCs and bigeminy
Asthma/COPD
Chronic Lymphedema and chronic venous stasis changes
Eptistaxis
Hypertension
HLD
DM II
MARIAMA, untreated
Peripheral Neuropathy
History of DVT
Morbid Obesity
Medication and dietary non-adherence
Hypokalemia
Echo 08/22/21:�LVEF 53%, mild LVH, Mild MR, Mild 20/10 PRECIOUS 1.7cm2, mild AI
Echo 03/24/22: Technically limited study and patient was scanned in a wheelchair. No regional wall motion abnormalities are seen. LV ejection fraction is 53% by Phan's biplane method�of discs. Mild left ventricular hypertrophy. Normal diastolic
function. Mild mitral regurgitation is seen. This may be underestimated due to acoustic shadowing. Mild aortic stenosis. Peak/mean gradients across the aortic valve 20/10 mmHg. Using an LVOT diameter�of 2.0 cm the aortic valve by the Continuity
equation is calculated at 1.7 cm2. Mild aortic regurgitation.
Echo 12/18/2022:�EF 40-45%, global hypokinesis, moderate cLVH, stage II diastolic dysfunction, mild MS, mild MR, severely dilated LA, moderate with peak/mean gradients 45/20 mmHg, PRECIOUS 1.2 cm2, mild AR, mild TR, estimated PAP 42 mmHg,
Echo 03/16/2023: EF 45-50%, moderate cLVH, global hypokinesis, mild MR, mild to moderate with peak/mean gradients 21/12 mmHg, mild TR, estimated PAP 30-35 mmHg
ECHO 10/01/23: EF 45 to 50%, global hypokinesis, moderate to severe concentric LVH, stage II diastolic dysfunction, mildly dilated RV, mitral sclerosis, mild to moderate , peak/mean gradients 26/18 mmHg, mild AR, mild to moderate TR, PAP 60 to 65
mmHg
Echo 06/30/2024: EF 40 to 45%, stage I diastolic dysfunction, trace MR, no AAS, mild to moderate aortic regurgitation, severe TR with PAP 65 mmHg, severely dilated RA, severely dilated and hypocontractile RV, compared to echo 11/2023 the RV appears
more dilated and hypocontractile and the TR is worse
Plan:
-Echo as noted above shows a relatively stable LVEF, but right heart function looks worse.
-Weight is down 9 lbs with Lasix 80 mg IV BID. Previous dry weight of 211 lbs back on last discharge 02/16/2024.Patient was taking Lasix 80 mg PO BID prior to admission plus metolazone 2.5 mg on Fridays. Metolazone is now on hold
-Nephrology following and BUN slowly improving
-Patient with longstanding frequent PVCs. Previously managed with Cardizem CD for frequent, asymptomatic PVCs. Patient is tolerating addition of Toprol-XL 12.5 mg daily after previously being intolerant to Toprol-XL due to hypotension and
bradycardia. Will continue to follow telemetry.
-Imdur ER stopped during 04/2024 admission due to hypotension and because it was no longer needed. Imdur was started in the past during an attempt to start nitrates and hydralazine for reduced EF and inability to take KAROLINA/ARB. Therefore, we will
stop Imdur ER.
-Previously declined SGLT-2 due to risk of infection and she is almost bedbound and incontinent.
-Follow potassium, potassium up to 4.6 on 06/30/24 and KCl 40 meq daily ordered.
Progress Note - Cash Clerk
Subjective
Date of Service: June 30, 2024
She feels less SOB
Objective
Labs:
06/30/24 07:34
06/30/24 07:34
Labs
Hgb 11.6 g/dL (12.0-16.0) L 06/30/24 07:34
Hct 38.1 % (37.0-47.0) 06/30/24 07:34
Plt Count 204 10^3/uL (130-400) 06/30/24 07:34
Sodium 142 mmol/L (135-145) 06/30/24 07:34
Potassium 4.6 mmol/L (3.5-5.1) 06/30/24 07:34
BUN 133 mg/dl (7-17) H* 06/30/24 07:34
Creatinine 1.5 mg/dL (0.6-1.0) H 06/30/24 07:34
Glucose 106 mg/dl (70-99) H 06/30/24 07:34
Vital Signs and I&O:
Vital Signs
Temp Pulse Resp BP Pulse Ox
97.5 F 67 18 120/65 97
06/30/24 11:16 06/30/24 11:16 06/30/24 11:16 06/30/24 11:16 06/30/24 12:17
Vital Signs
Temp Pulse Resp BP Pulse Ox
97.5 F 67 18 120/65 97
06/30/24 11:16 06/30/24 11:16 06/30/24 11:16 06/30/24 11:16 06/30/24 12:17
Intake & Output
06/28/24 06/29/24 06/30/24 07/01/24
06:59 06:59 06:59 06:59
Intake Total 210 / 210 240 / 240
Output Total 200 / 200 500 / 500 1225 / 1225
Balance -260 / -260 -1225 / -1225
Physical Exam
Physical Exam
General: NAD. AAOX3
HEENT: EOMI, MMM
Heart: SR with PVCs on tele.
Lungs: Wearing 5 L face tent. Tachypneic and dyspneic with conversation. No wheeze B/L.
Abd: +BS, ND
Ext: Chronic lymphedema changes. +3 B/L LE hard non-pitting edema
Neuro: No focal or lateralizing weakness
Skin: No rash
[2024-06-30 15:17] VITALS: BP 126/66
--- NOTE | 2024-06-30 15:20 | CM ---
Patient continues on O2 with packing in nose due to bleeding. Patient complaining of pain and issues with breathing. Patient plan is for referral to return to [facility] when medically appropriate.
[2024-06-30 19:43] VITALS: BP 122/74
[2024-06-30] MEDS: LIPITOR 20 MG PO (20:26)
[2024-06-30 23:21] VITALS: BP 129/65
[2024-07-01] VITALS (7 sets, daily range): BP systolic 104–138; BP diastolic 55–96; BMI 40.2
[2024-07-01] MEDS: AMOXIL 500 MG PO ×3 (00:26→16:29)
--- NOTE | 2024-07-01 07:32 | W.PN.HOSP.TC ---
Addendum entered and electronically signed by Kori Maurice MD 07/01/24 15:10:
I saw and evaluated the patient independently. I reviewed the resident�s note and agree with findings and plan as documented by Dr. Jimenez.
GENERAL: chronically ill appearing female significantly SOB
HEENT: NC/AT----packing in right nostril so on face tent (cannot wear NC O2)
HEART: regular rate and rhythm, +S1, +S2 with ectopy
LUNGS : decreased breath sounds bilaterally
ABDOM: soft, nontender, nondistended, + bowel sounds
EXT: no cyanosis, clubbing--venous stasis color changes to legs with 3+ LE edema bilaterally--legs wrapped with gauze--chronic wounds
NEUROLOGIC: nonfocal
Acute on chronic HFrEF exacerbation--weights up over the last week and increasing here despite ongoing diuresis--pro BNP 15,200--apprec cards-- lasix increased to 160 mg IV BID by cards--? need for lasix drip or right heart cath--follow weights,
I/Os--cont aspirin, potassium chloride and replete as needed--repeat ECHO with decreased EF 40-45%, stage 1 diastolic dysfunction, severe dilated right atrium and severe dilated hypocontractile right ventricle--V/Q scan low prob and US pending for
DVT
acute on chronic hypoxic respiratory failure with home oxygen--cont supplemental O2--covid/flu neg--cont nebs--apprec pulm--? PE with echo findings but cannot do CT scan with elevated creat, cannot do IV heparin with nosebleed, V/Q low prob--
doesn't appear to have enough fluid for thoracentesis....apprec pulm input
essential HTN--cont IV lasix--cont meds as able--some were stopped on previous admissions for hypotension
nosebleeds--no help with humidified O2, afrin, ocean nasal spray--apprec ENT
hyperlipidemia-- continue atorvastatin
CKD stage III--BUN 149, Creat 1.3--follow with diuresis--apprec renal
chronic wounds (POA)--apprec wound care--R plantar heel with healing stage 3 PI, now clean pink base. Sacrum with healing 3 PI
peripheral neuropathy
history of DVT
DVT proph
code status -- FULL CODE
Pulmonary broached the topic of hospice with patient on 06/30/2024. Appears patient is not at all ready for that.
Spoke with patient's daughter at bedside while patient was away for her V/Q scan. Explained that no fluid to tap, weights increasing despite IV Lasix, no pneumonia, sending for lung scan due to worsening right sided heart findings on
echocardiogram.... Explained that this may be worsening failure and that there may be nothing more to do. Explained CODE STATUS and that if anything were to happen to her now, I do not believe that she would get off the ventilator. Daughter
tearful but seems to understand. Will discuss with her brothers. Ongoing discussions moving forward.
Original Note:
Today's Communication/Plan
-
Lower extremity Doppler pending
Continue IV Lasix
Assessment / Plan
Assessment / Plan
IMPRESSION: Patient is a 78-year-old female with past medical history significant for hypertension, hyperlipidemia, HFrEF, CKD stage III, asthma, chronic hypoxic respiratory failure with home oxygen, peripheral neuropathy, and history of DVT who
presented to [facility] for evaluation of increased shortness of breath and weight gain.
ASSESMENT/PLAN:
#Acute on chronic HFrEF
-BNP 55430
-CXR: Extremely low lung volumes.
Cardiomegaly with increased pulmonary vascularity suggesting CHF.
- Consult Cardiology, appreciated
- daily weights--> on adm 106 kg--> 100.3kg, today 102 kg
- monitor I&Os
- Continue IV Lasix dose was increased to 160 Mg twice daily as per cardiology
-Due to high doses of Lasix, ifLasix gtt needed along with respiratory decline, will consider transfer to IMU
- continue aspirin, potassium chloride
- Continue Toprol as per cardiology for frequent asymptomatic PVCs
� Echo: EF 40 to 45%, worsening RV function
-Discontinued metolazone as per cardiology
-Discussed with daughter about palliative care/hospice due to decline with chronic comorbidities
#Chronic hypoxic respiratory failure with home oxygen/Asthma
-Covid and influenza negative
-CXR: Extremely low lung volumes.
Cardiomegaly with increased pulmonary vascularity suggesting CHF.
-Patient is chronically on 2 L NC at home, now requiring 3L in hospital
- continue supplemental O2, added humidifier
- maintain SpO2 >93%
- continue home medication regimen
-Consulted pulmonology, appreciated
-CXR 06/29/2024: Right basilar opacity suspicious for pleural fluid
� IR consulted-thoracentesis deferred as minimal fluid present
-Due to worsening RV function on echo, concern for acute PE---> VQ scan (showed low probability of PE) and lower extremity duplex ordered since increased creatinine
#Nosebleed
-Currently only on ASA
�Hold heparin subq
-ENT following, appreciated
-Packing of right nostril done to be removed and on amoxicillin as per ENT
#Essential Hypertension
- Continue IV Lasix
- Monitor VS
#Hyperlipidemia
- continue atorvastatin
#CKD stage III
-BUN 149, Creat 1.3 on adm
-BUN decreased, creatinine at baseline.
- monitor BMP
�BUN decreased 133, creatinine around baseline
-Nephrology consulted, appreciated
#Chronic wounds-R plantar heel with healing stage III, sacrum with healing stage III
- wound care following
#Peripheral neuropathy
#History of DVT
Code status: Full Code
DVT Prophylaxis: Heparin Sq HOLD
Anticipated Discharge: > 48 hours
Subjective/Interval History
-
Date of Service: July 01, 2024
Patient did not have any overnight nosebleeds and states that her SOB feels mildly better.
Objective Data
-
Labs:
Laboratory Results
06/30/24 07/01/24
17:27 06:00
WBC Cancelled Pending
Hgb Cancelled Pending
Hct Cancelled Pending
Plt Count Cancelled Pending
Sodium Pending
Potassium Pending
Chloride Pending
Carbon Dioxide Pending
BUN Pending
Creatinine Pending
Glucose Pending
Calcium Pending
Total Bilirubin Pending
AST Pending
ALT Pending
Alkaline Phosphatase Pending
Vital Signs:
Vital Signs
Temp Pulse Resp BP Pulse Ox
97.5 F 72 15 119/83 92
07/01/24 07:14 07/01/24 07:14 07/01/24 07:14 07/01/24 07:14 07/01/24 07:14
I&O
06/30/24 07/01/24 07/02/24
06:59 06:59 06:59
Intake Total 300 / 300
Output Total 1225 / 1225 1150 / 1150
Balance -1225 / -1225 -850 / -850
Review of Systems
-
All other systems: Reviewed and negative
Physical Exam
-
General: No Apparent Distress
HEENT: Normocephalic
Respiratory: Decreased Breath Sounds
Cardiac: Regular Rhythm and S1/S2
GI: Soft, Nontender and Nondistended
Musculoskeletal: No Edema
Skin: Warm and Dry
Neuro: Awake, Alert and Oriented
Psych: Calm
[2024-07-01] MEDS: ADVAIR HFA 115/21 MCG INHALER 2 PUFF INH ×2 (07:44→19:17)
[2024-07-01] MEDS: KCL 40 MEQ PO (08:11)
[2024-07-01] MEDS: TOPROL XL 12.5 MG PO (08:11)
[2024-07-01] MEDS: ASPIR LOW (ENTERIC COATED) 81 MG PO (08:12)
[2024-07-01] MEDS: LIDOCAINE 4% PATCH TOPICAL (08:12)
[2024-07-01] MEDS: FEOSOL 325 MG PO (08:13)
[2024-07-01] MEDS: LASIX 80 MG IV ×2 (08:14→09:48)
[2024-07-01] MEDS: LAC HYDRIN, AM LACTIN LOTION 1 APPLIC TOPICAL ×2 (08:24→20:58)
[2024-07-01 08:26] LABS: Hematocrit 35.9 % (37.0-47.0); Hemoglobin 11.7 g/dL (12.0-16.0); Mean Corp Hgb Conc. 32.6 g/dL (33.0-37.0); Mean Corpuscular Hgb 30.2 pg (27.0-31.0); Mean Corpuscular Volume 92.8 fL (81.0-99.0); Mean Platelet Volume 9.9 fL (7.4-10.4); Platelet Count 193 10^3/uL (130-400); Red Blood Cell Count 3.87 10^6/uL (4.20-5.40); Red Cell Dist. Width 20.8 % (11.5-14.5); White Blood Cell Count 7.8 10^3/uL (4.8-10.8)
[2024-07-01 08:55] LABS: ALT (SGPT) 31 U/L (0-35); AST (SGOT) 46 U/L (14-36); Albumin 3.3 g/dl (3.5-5.0); Alkaline Phosphatase 125 U/L (38-126); Calcium 8.5 mg/dl (8.4-10.2); Carbon Dioxide 33 mmol/L (22-30); Chloride 100 mmol/L (98-107); Estimated Creatinine Clearance 40 ml/min; Glucose 100 mg/dl (70-99); Potassium 4.7 mmol/L (3.5-5.1); Sodium 142 mmol/L (135-145); Total Protein 7.4 g/dl (6.3-8.2); eGFR 41.57
--- NOTE | 2024-07-01 08:56 | W.PN.PUL3 ---
Today's Communication / Plan
-
Continue with current care from the pulmonary perspective
Diuresis per nephrology and cardiology
Follow renal function
Epistaxis-ENT managing R-sided nasal packing; continue amoxicillin
Continue facial tent with humidified oxygen, goal SpO2 88-95%
No evidence for acute exacerbation of asthma/COPD, however if patient does not have improved SOB with adequate diuresis then would consider course of systemic steroids
Will follow
Assessment
-
Assessment: 78-year-old female non-smoker with a past medical history of DVT, asthma, MARIAMA intolerant to CPAP, DM type II, chronic venous stasis dermatitis, history of COVID-19, HFmrEF, and chronic hypoxic respiratory failure on home O2 who
presents from [facility] with SOB. Patient reports that she woke up on the morning of arrival with increased shortness of breath and had weight gain. She believes she has gained about 7 pounds. In the ER she was afebrile to 97.6 �F, heart rate
80, breathing at 23 breaths/min, BP 116/76 and saturating 92% on 2 L/min. Labs showed Hb 11.4, serum bicarbonate level 37, BUN 149, creatinine 1.3, proBNP 15,200 and COVID-19 antigen negative. Flu A/B also negative and CXR showed pulmonary
vascular congestion consistent with CHF exacerbation. She was given Xopenex in the ER +80 mg Lasix and admitted to telemetry. Pulmonary service now consulted for additional management/recommendations.
Chronic conditions FISH INSPECTOR: DVT (right sided mid/distal femoral vein which was nearly occlusive seen via duplex ultrasound from October 2019), asthma, obesity, MARIAMA intolerant to CPAP, hypertension, hypercholesterolemia, DM type II, chronic venous stasis
dermatitis, history of COVID-19, anemia, HFmrEF, chronic hypoxic respiratory failure on home O2, chronic wounds on legs/back
Impression:
#Acute decompensated heart failure/acute HFmrEF exacerbation
#Acute on chronic respiratory failure with hypoxia (on 2 L/min ATC at baseline)
#Acute uremia with severely elevated BUN
#Acute epistaxis s/p nasal packing
#Moderate COPD/asthma maintained on Advair 115mcg + prn xopenex - not currently in an acute exacerbation
#CKD (baseline creatinine 1.3�1.6)
#Valvular heart disease with mild�moderate aortic stenosis via echo from November 2023
#Moderate pulmonary hypertension with PASP: 51 mmHg with mildly dilated RV via echo from November 2023
#History of eosinophilia (absolute eosinophil count was 800 on 02/19/2024)
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
#History of RLE DVT (10/2019 involving the mid/distal right femoral vein)
#Hx of COVID-19
#MARIAMA intolerant to CPAP
Plan:
- Although BUN is elevated, she continues to be short of breath and recent proBNP was severely elevated with CXR showing extremely low lung volumes with pulmonary vascular congestion from CXR on 06/27/2024
- No evidence for COPD exacerbation given she reports orthopnea, and her BNP is markedly elevated and given her CXR findings
- Continue with diuresis as per cardiology
- Nephrology recs appreciated
- Continue to trend BUN and sCr; trend UOP and I/O
- Hold off on systemic steroids for now and continue to monitor
- Maintain SpO2 88-95% with supplemental O2 and wean down as tolerated
- Continue Advair 115mcg with prn xopenex
- Mucolytics as needed
- Echo rechecked on 06/30/2024 showing worsening RV dilation + worsening TR --> concern for acute PE --> given her ALMA, VQ scan checked on 07/01/2024 showing low probability for PE; and lower extremity duplex; unfortunately unable to empirically treat
with parenteral heparin versus NOAC given her acute epistaxis; surprisingly there is no aortic stenosis seen on the current study and there is mild�moderate AI
Patient was going to get a thoracentesis on 06/30/2024 however there was a small right effusion seen on chest ultrasound from 06/30/2024 and no left-sided pleural effusion. Not enough fluid for safe thoracentesis
ABG from 06/29/2024 noted: 7.51/41/59 -metabolic alkalosis with appropriate respiratory compensation
Epistaxis: ENT performed nasal packing of right nare; continue with amoxicillin; nasal packing management as per ENT
Continue humidified oxygen via face tent while keeping SpO2 88-95%
She is on daily baby ASA, which may need to be stopped if her Hb downtrends or if epistaxis persists/worsens
- Incentive spirometer encouraged q1hr while awake
- Replete electrolytes with K>4, Mg>2
- Maintain euglycemia with goal BG >100 and <180
- prn nebulized bronchodilators - not wheezing today (06/30/2024)
- DVT ppx: HSQ
Pulmonary service will continue to follow along. She will need to continue following up with our office as last visit on 12/07/2023 with DAVID Cherry.
Data:
Chest US 06/30/2024: Small right pleural effusion. No left pleural effusion. Amount of fluid present not sufficient for safe thoracentesis.
CXR 06/27/2024: Extremely low lung volumes; Cardiomegaly with increased pulmonary vascularity suggesting CHF.
VQ scan 07/01/2024:
There is decreased ventilation and perfusion involving the base of the right lung, which is new compared to previous lung scan of October 24, 2023. This corresponds to focal parenchymal opacity on chest radiograph. Of note, perfusion in this region is
better than ventilation.
No evidence of a focal perfusion defect which is unmatched by decreased ventilation.
Examination is interpreted as low probability for pulmonary embolism.
Total time spent today was 36 minutes for this encounter. Time includes reviewing laboratory test/imaging results, reviewing pertinent medical records, obtaining and reviewing medical history, performing an appropriate exam, ordering medications,
tests and procedures. Time also includes documentation of this encounter, coordinating patient care and communicating with other healthcare professionals. Total time does not include separately billed tests performed on this date of service.
Subjective Data
-
Date of Service:
Date of Service: July 01, 2024
Chief Complaint: Pulmonary Follow Up (Shortness of breath/chronic hypoxemic respiratory failure)
Subjective:
Patient was seen and evaluated today at bedside. Currently on 28% FiO2 via FaceTime, saturating 95%. Afebrile overnight. She says the nasal packing is bothersome but denies any bleeding. Also denies chest pain, DOBBINS, abdominal pain, nausea, fevers
or chills. She still reports shortness of breath.
Review of Systems
General: Other (Negative unless mentioned above)
Objective Data
Data Reviewed
Vital Signs / I&O / Oxygen:
Vital Signs
Temp Pulse Resp BP Pulse Ox
97.5 F 76 20 119/83 94
07/01/24 07:14 07/01/24 09:48 07/01/24 07:45 07/01/24 09:48 07/01/24 07:45
Intake and Output
06/30/24 07/01/24 07/02/24
06:59 06:59 06:59
Intake Total 300 / 300
Output Total 1225 / 1225 1150 / 1150
Balance -1225 / -1225 -850 / -850
SaO2 94
Nasal Cannula flow liters per 5
minute
Physical Exam
General: Respiratory Distress (negative), Chills (negative) and Sweats (negative)
HEENT: Normocephalic, Anicteric and Other (Nasal packing in right naris with no active bleeding seen)
Cardiovascular: S1-S2, Peripheral Edema (+1 lower extremity edema bilaterally) and Other (Frequent extrasystoles)
Respiratory: Wheeze (negative), Crackles (Bilateral), Rhonchi (negative), Stridor (negative) and Other (Diminished breath sounds bilaterally)
GI: Soft, Non Distended, Non Tender and Normal Bowel Sounds
Neurology: Awake, Alert and Tremors (negative)
Skin: Warm, Dry, Cyanosis (negative), Jaundice (negative) and Other (Chronic venous stasis dermatitis in the lower extremities with lichenification)
Labs/Micro/Reports
Lab Data
07/01/24 07:54
07/01/24 07:54
[2024-07-01 09:41] LABS: Blood Urea Nitrogen 134 mg/dl (7-17)
--- NOTE | 2024-07-01 10:28 | W.PN.CARDCBS ---
Today's Communication / Plan
-
increase lasix to 160 mg iv bid and follow RI
Impression / Plan
-
.
PCP: Cris Avilez PA-C
Manager Strategic Alliances: Dr. Ott
Impression:
Admitted with acute on chronic hypoxic respiratory failure and acute HF 06/27/24
Acute on chronic HFmrEF 10/01/23
EF 45-50% by echo 10/01/23
ALMA on CKD 3b
Chronic hypoxic respiratory failure on home oxygen 2 L via NC
Abnormal chest x-ray
frequent PVCs and bigeminy
Asthma/COPD
Chronic Lymphedema and chronic venous stasis changes
Epistaxis
Hypertension
HLD
DM II
MARIAMA, untreated
Peripheral Neuropathy
History of DVT
Morbid Obesity
Medication and dietary non-adherence
Echo 08/22/21:�LVEF 53%, mild LVH, Mild MR, Mild 20/10 PRECIOUS 1.7cm2, mild AI
Echo 03/24/22: Technically limited study and patient was scanned in a wheelchair. No regional wall motion abnormalities are seen. LV ejection fraction is 53% by Phan's biplane method�of discs. Mild left ventricular hypertrophy. Normal diastolic
function. Mild mitral regurgitation is seen. This may be underestimated due to acoustic shadowing. Mild aortic stenosis. Peak/mean gradients across the aortic valve 20/10 mmHg. Using an LVOT diameter�of 2.0 cm the aortic valve by the Continuity
equation is calculated at 1.7 cm2. Mild aortic regurgitation.
Echo 12/18/2022:�EF 40-45%, global hypokinesis, moderate cLVH, stage II diastolic dysfunction, mild MS, mild MR, severely dilated LA, moderate with peak/mean gradients 45/20 mmHg, PRECIOUS 1.2 cm2, mild AR, mild TR, estimated PAP 42 mmHg,
Echo 03/16/2023: EF 45-50%, moderate cLVH, global hypokinesis, mild MR, mild to moderate with peak/mean gradients 21/12 mmHg, mild TR, estimated PAP 30-35 mmHg
ECHO 10/01/23: EF 45 to 50%, global hypokinesis, moderate to severe concentric LVH, stage II diastolic dysfunction, mildly dilated RV, mitral sclerosis, mild to moderate , peak/mean gradients 26/18 mmHg, mild AR, mild to moderate TR, PAP 60 to 65
mmHg
Echo 06/30/2024: EF 40 to 45%, stage I diastolic dysfunction, trace MR, no AAS, mild to moderate aortic regurgitation, severe TR with PAP 65 mmHg, severely dilated RA, severely dilated and hypocontractile RV, compared to echo 11/2023 the RV appears
more dilated and hypocontractile and the TR is worse
Plan:
weight is up to 226 pounds and was 212 on last d/c.
she is also more hypoxemic
Will increase lasix to 160 mg iv bid and follow RI
Cr 1.3 on 07/01 and was 1.5 on 06/30
Patient with longstanding frequent PVCs. Previously managed with Cardizem CD for frequent, asymptomatic PVCs. Patient is tolerating addition of Toprol-XL 12.5 mg daily after previously being intolerant to Toprol-XL due to hypotension and
bradycardia. Will continue to follow telemetry.
Previously declined SGLT-2 due to risk of infection and she is almost bedbound and incontinent.
d/w primary service and nephrology
Progress Note - Manager Strategic Alliances
Subjective
Date of Service: July 01, 2024
no complaints
Objective
Labs:
07/01/24 07:54
07/01/24 07:54
Labs
Hgb 11.7 g/dL (12.0-16.0) L 07/01/24 07:54
Hct 35.9 % (37.0-47.0) L 07/01/24 07:54
Plt Count 193 10^3/uL (130-400) 07/01/24 07:54
Sodium 142 mmol/L (135-145) 07/01/24 07:54
Potassium 4.7 mmol/L (3.5-5.1) 07/01/24 07:54
BUN 134 mg/dl (7-17) H* 07/01/24 07:54
Creatinine 1.3 mg/dL (0.6-1.0) H 07/01/24 07:54
Glucose 100 mg/dl (70-99) H 07/01/24 07:54
Vital Signs and I&O:
Vital Signs
Temp Pulse Resp BP Pulse Ox
97.5 F 76 20 119/83 94
07/01/24 07:14 07/01/24 09:48 07/01/24 07:45 07/01/24 09:48 07/01/24 07:45
Vital Signs
Temp Pulse Resp BP Pulse Ox
97.5 F 76 20 119/83 94
07/01/24 07:14 07/01/24 09:48 07/01/24 07:45 07/01/24 09:48 07/01/24 07:45
Intake & Output
06/29/24 06/30/24 07/01/24 07/02/24
06:59 06:59 06:59 06:59
Intake Total 240 / 240 300 / 300
Output Total 500 / 500 1225 / 1225 1150 / 1150
Balance -260 / -260 -1225 / -1225 -850 / -850
Physical Exam
Physical Exam
General: Well developed, well nourished in NAD.
Neck: Supple, no JVD, HJR, carotids +2 B/L, no bruits bilaterally.
Heart: Non displaced PMI, RRR, no murmurs, No S3, S4, no rubs.
Lungs: scattered rhonch
Abdomen: Normal bowel sounds, soft, non-tender, non-distended.
Extremities: chronic severe lymphedema bilaterally.
Neuro: Grossly nonfocal, awake, alert and oriented x3.
--- NOTE | 2024-07-01 13:33 | CM ---
Daughter present in room, patient out to test. Patient daughter confirmed plan to refer patient back to [facility] when medically appropriate. Patient daughter reviewed options with physician and discussed hospice, palliative care options. Patient
daughter to discuss with brothers and update physician. CM will continue to follow for discharge planning needs.
Plan return to SNF; will need referral to [facility] home vs palliative/hospice
[2024-07-01] MEDS: LASIX 160 MG IV (16:28)
--- NOTE | 2024-07-01 16:49 | W.PN.NEPH.PH ---
Today's Communication / Plan
-
follow labs
Assessment/Plan
-
78-year-old female with past medical history significant for hypertension, hyperlipidemia, HFrEF, CKD stage III, asthma, chronic hypoxic respiratory failure with home oxygen, peripheral neuropathy, and history of DVT who presented to [facility]
for evaluation of increased shortness of breath.
chest x-ray with a pleural effusion and a BUN of 149 with a creatinine of 1.4 and acute epistaxis
Assessment:
ALMA on CKD 3 (bl Cr 1.3-1.5)
azotemia
decompensated HFmEF (EF 40-45%)
LE wounds with chronic lymphedema
HTN
DLD
Asthma
MARIAMA
RLE DVT 2019
morbid obesity
Plan:
cr relatively stable at 1.3
however significant azotemia likely cardiorenal in nature(EF 40-45%, severe TR and pulm HTN), check FEna
continue IV lasix-dose increased per cards as wt is up
no zaroxolyn for now
follow BMP
Pleural effusion not amenable for thoracentesis
monitor met alkalosis-stable
Reviewed with pt regarding poor renal prognosis and she notes no dialysis in future and aware of prognosis in general
-
-
Date of Service: July 01, 2024
CC / HPI / ROS
-
Chief Complaint:
ALMA
History of Present Illness:
ALMA/Cr stable at 1.3
BUN no change at 134
wt is up
on face vent 5lit, (home 2lit) -
Review of Systems:
no CP
Still sob
no n/v
Labs
-
Labs:
WBC 7.8 10^3/uL (4.8-10.8) 07/01/24 07:54
RBC 3.87 10^6/uL (4.20-5.40) L 07/01/24 07:54
Hgb 11.7 g/dL (12.0-16.0) L 07/01/24 07:54
Hct 35.9 % (37.0-47.0) L 07/01/24 07:54
Plt Count 193 10^3/uL (130-400) 07/01/24 07:54
Sodium 142 mmol/L (135-145) 07/01/24 07:54
Potassium 4.7 mmol/L (3.5-5.1) 07/01/24 07:54
Chloride 100 mmol/L (98-107) 07/01/24 07:54
Carbon Dioxide 33 mmol/L (22-30) H 07/01/24 07:54
BUN 134 mg/dl (7-17) H* 07/01/24 07:54
Creatinine 1.3 mg/dL (0.6-1.0) H 07/01/24 07:54
eGFR 41.57 07/01/24 07:54
Glucose 100 mg/dl (70-99) H 07/01/24 07:54
Calcium 8.5 mg/dl (8.4-10.2) 07/01/24 07:54
Mqn-U-Urxehqrhinu Pept 06252 pg/ml 06/29/24 06:50
Albumin 3.3 g/dl (3.5-5.0) L 07/01/24 07:54
Physical Exam
-
Vital Signs:
Vital Signs
Temp Pulse Resp BP Pulse Ox
97.5 F 76 17 130/80 95
07/01/24 15:55 07/01/24 16:28 07/01/24 15:55 07/01/24 16:28 07/01/24 15:55
Cardiovascular:: Regular rate and rhythm
Respiratory:: Bilateral: Coarse
Lung Excursion:: Normal
Abdomen:: Nontender and Soft
Extremity Edema:: +1: Bilateral: (chr skin changes )
Loja Catheter: No
[2024-07-01] MEDS: XOPENEX HFA 45 MCG INHALER 2 PUFF INH (19:40)
--- NOTE | 2024-07-01 20:06 | PTCARENOTE ---
notified Cardiology intervention manager, Annie Naik to alert that pt was in sustained possible SVT or v-tach. TT strip @1845. No changes for now. Continue to monitor and cards will continue to follow. Respiratory provided Xopenex to pt with relief of SOB
noted. Pt heart rate returned to baseline shortly thereafter to 92.
[2024-07-01 20:59] LABS: Carbon Dioxide 34 mmol/L (22-30); Chloride 99 mmol/L (98-107); Estimated Creatinine Clearance 37 ml/min; Glucose 133 mg/dl (70-99); Potassium 5.1 mmol/L (3.5-5.1); Sodium 145 mmol/L (135-145); eGFR 38.03
[2024-07-01] MEDS: LIPITOR PO ×2 (21:03→21:05)
[2024-07-01 21:14] LABS: Blood Urea Nitrogen 125 mg/dl (7-17)
--- NOTE | 2024-07-01 21:30 | PTCARENOTE ---
Continued episodes of possible SVT or ST on monitor - rates in 140s/150s. Pt c/o having to move bowels and 'can't breathe'. Pt visibly dyspneic, satting low 80s on 5L via face mask. BP stable. RT in room, increased O2 for short time to until dyspnea
relieved - satted 100% on 10L 98%, brought back down to 5L 28% - held O2 in 89-93% range - reported relief. HR back down to 90s, BP remained stable 120s/70s. CARNALLITE PLANT OPERATOR notified, ordered check BMP and Mag. Results relayed, no new orders at this time.
[2024-07-02] MEDS: AMOXIL 500 MG PO ×2 (01:54→08:09)
[2024-07-02 03:13] VITALS: BP 118/62
[2024-07-02 04:00] VITALS: BMI 38.5
--- NOTE | 2024-07-02 04:20 | PTCARENOTE ---
Pt with no urine output this shift at this point. Bladder scan difficult to perform accurately d/t pt anatomy/size. Pt continually asking to use bedside commode or bedpan but no void. Bladder scan and straight cath orders noted. TT to DIRECTOR OF SEARCH ENGINE MARKETING, asking for
nolen instead of straight cath - order placed for nolen. 16F Nolen placed - 200ml clear yellow urine output.
[2024-07-02 05:03] LABS: Urine Sodium 48 mmol/L (30-90)
[2024-07-02 06:00] VITALS: BMI 39.3
[2024-07-02 07:00] VITALS: BP 75/32
--- NOTE | 2024-07-02 07:28 | W.PN.HOSP.TC ---
Addendum entered and electronically signed by Kori Maurice MD 07/02/24 14:18:
I saw and evaluated the patient independently. I reviewed the resident�s note and agree with findings and plan as documented by Dr. Jimenez.
GENERAL: chronically ill appearing female unresponsive with agonal breathing
HEENT: NC/AT----packing in right nostril removed
HEART: regular rate and rhythm, +S1, +S2 with ectopy
LUNGS : decreased breath sounds bilaterally
ABDOM: soft, nontender, nondistended, + bowel sounds
EXT: no cyanosis, clubbing--venous stasis color changes to legs with 3+ LE edema bilaterally--legs wrapped with gauze--chronic wounds
NEUROLOGIC: nonfocal
code happened--see my update note--time of 10:51 AM--cause of PEA arrest, pulm hypertension, heart failure with reduced ejection fraction
Medical Issues
Acute on chronic HFrEF exacerbation--weights up over the last week and increasing here despite ongoing diuresis--pro BNP 15,200--apprec cards-- lasix increased to 160 mg IV BID by cards--? need for lasix drip or right heart cath--follow weights,
I/Os--cont aspirin, potassium chloride and replete as needed--repeat ECHO with decreased EF 40-45%, stage 1 diastolic dysfunction, severe dilated right atrium and severe dilated hypocontractile right ventricle--V/Q scan low prob and US negative for
DVT
acute on chronic hypoxic respiratory failure with home oxygen--cont supplemental O2--covid/flu neg--cont nebs--apprec pulm--? PE with echo findings but cannot do CT scan with elevated creat, cannot do IV heparin with nosebleed, V/Q low prob--
doesn't appear to have enough fluid for thoracentesis....apprec pulm input
essential HTN--cont IV lasix--cont meds as able--some were stopped on previous admissions for hypotension
nosebleeds--no help with humidified O2, afrin, ocean nasal spray--apprec ENT
hyperlipidemia-- continue atorvastatin
CKD stage III--BUN 149, Creat 1.3--follow with diuresis--apprec renal
chronic wounds (POA)--apprec wound care--R plantar heel with healing stage 3 PI, now clean pink base. Sacrum with healing 3 PI
peripheral neuropathy
history of DVT
DVT proph
code status -- FULL CODE
Pulmonary broached the topic of hospice with patient on 06/30/2024. Appears patient is not at all ready for that.
07/01/24 Spoke with patient's daughter at bedside while patient was away for her V/Q scan. Explained that no fluid to tap, weights increasing despite IV Lasix, no pneumonia, sending for lung scan due to worsening right sided heart findings on
echocardiogram.... Explained that this may be worsening failure and that there may be nothing more to do. Explained CODE STATUS and that if anything were to happen to her now, I do not believe that she would get off the ventilator. Daughter
tearful but seems to understand. Will discuss with her brothers. Ongoing discussions moving forward. Pt remained full code.
Original Note:
Today's Communication/Plan
-
refer to update note
Assessment / Plan
Assessment / Plan
IMPRESSION: Patient is a 78-year-old female with past medical history significant for hypertension, hyperlipidemia, HFrEF, CKD stage III, asthma, chronic hypoxic respiratory failure with home oxygen, peripheral neuropathy, and history of DVT who
presented to [facility] for evaluation of increased shortness of breath and weight gain.
ASSESMENT/PLAN:
#Acute on chronic HFrEF
-BNP 69216
-CXR: Extremely low lung volumes.
Cardiomegaly with increased pulmonary vascularity suggesting CHF.
- Consult Cardiology, appreciated
- daily weights--> on adm 106 kg--> 100kg
- monitor I&Os
- Continue IV Lasix dose was increased to 160 Mg twice daily as per cardiology
-Due to high doses of Lasix, if Lasix gtt needed along with respiratory decline, will consider transfer to IMU
- continue aspirin, potassium chloride
- Continue Toprol as per cardiology for frequent asymptomatic PVCs
� Echo: EF 40 to 45%, worsening RV function
-Discontinued metolazone as per cardiology
-Discussed with daughter about palliative care/hospice due to decline with chronic comorbidities
#Chronic hypoxic respiratory failure with home oxygen/Asthma
-Covid and influenza negative
-CXR: Extremely low lung volumes.
Cardiomegaly with increased pulmonary vascularity suggesting CHF.
-Patient is chronically on 2 L NC at home, now requiring 3L in hospital
- continue supplemental O2, added humidifier
- maintain SpO2 >93%
- continue home medication regimen
-Consulted pulmonology, appreciated
-CXR 06/29/2024: Right basilar opacity suspicious for pleural fluid
� IR consulted-thoracentesis deferred as minimal fluid present
-Due to worsening RV function on echo, concern for acute PE---> VQ scan (showed low probability of PE) and lower extremity duplex negative
#Nosebleed
-Currently only on ASA
�Hold heparin subq
-ENT following, appreciated
-Packing of right nostril done to be removed and on amoxicillin as per ENT
#Essential Hypertension
- Continue IV Lasix
- Monitor VS
#Hyperlipidemia
- continue atorvastatin
#CKD stage III
-BUN 149, Creat 1.3 on adm
-BUN decreased, creatinine at baseline.
- monitor BMP
�BUN decreased 133, creatinine around baseline
-Nephrology consulted, appreciated
#Chronic wounds-R plantar heel with healing stage III, sacrum with healing stage III
- wound care following
#Peripheral neuropathy
#History of DVT
Code was called after my examination. Returned to patient's patient room upon code, unfortunately patient had after 50 minutes of high quality CPR and other resuscitative efforts. Refer to update note.
Code status: Full Code
DVT Prophylaxis: Heparin Sq HOLD
Anticipated Discharge: 24 - 48 hours
Subjective/Interval History
-
Date of Service: July 02, 2024
Patient did not complain of any nosebleeds overnight, but still continued to have SOB.
Objective Data
-
Labs:
Laboratory Results
07/01/24 07/02/24
20:30 07:26
WBC Pending
Hgb Pending
Hct Pending
Plt Count Pending
Sodium 145 Pending
Potassium 5.1 Pending
Chloride 99 Pending
Carbon Dioxide 34 H Pending
BUN 125 H* Pending
Creatinine 1.4 H Pending
Glucose 133 H Pending
Calcium 9.0 Pending
Vital Signs:
Vital Signs
Temp Pulse Resp BP Pulse Ox
97.8 F 88 18 118/62 94
07/02/24 03:13 07/02/24 03:13 07/02/24 03:13 07/02/24 03:13 07/02/24 03:13
I&O
07/01/24 07/02/24 07/03/24
06:59 06:59 06:59
Intake Total 300 / 300 940 / 940
Output Total 1150 / 1150 400 / 400
Balance -850 / -850 540 / 540
Review of Systems
-
Constitutional: Denies Fever
EENT: Denies Bloody Nose
Respiratory: Reports Trouble Breathing; Denies Cough
Cardiac: Denies Chest Pain
Abdomen/GI: Reports No Symptoms
Musculoskeletal: Reports No Symptoms
Skin: Reports No Symptoms
Neuro: Reports No Symptoms
Physical Exam
-
General: Appears Chronically Ill and Obese
HEENT: Normocephalic
Respiratory: Decreased Breath Sounds
Cardiac: Regular Rhythm and S1/S2
GI: Soft, Nontender and Nondistended
Musculoskeletal: No Edema
Skin: Warm and Dry
Neuro: Awake, Alert and Oriented
[2024-07-02 07:50] VITALS: BP 147/105
[2024-07-02] MEDS: LASIX 160 MG IV (07:53)
[2024-07-02] MEDS: FEOSOL 325 MG PO (08:09)
[2024-07-02] MEDS: KCL 40 MEQ PO (08:10)
[2024-07-02] MEDS: ASPIR LOW (ENTERIC COATED) 81 MG PO (08:10)
[2024-07-02] MEDS: TOPROL XL PO (08:12)
[2024-07-02] MEDS: VISBIOME 1 CAP PO (08:15)
[2024-07-02 08:20] VITALS: BP 88/62
[2024-07-02] MEDS: XOPENEX HFA 45 MCG INHALER 2 PUFF INH (08:20)
[2024-07-02] MEDS: ADVAIR HFA 115/21 MCG INHALER 2 PUFF INH (08:21)
[2024-07-02] MEDS: LIDOCAINE 4% PATCH TOPICAL (08:27)
[2024-07-02 08:38] LABS: % Basophils 0.3 % (0-2); % Immature Granulocytes 0.8 % (0-0.5); % Lymphocytes 2.5 % (20.5-51.1); % Monocytes 6.7 % (1.7-9.3); % Neutrophils 89.7 % (42.2-75.2); Absolute Basophils 0.1 10^3/uL (0-0.2); Absolute Immature Granulocytes 0.1 10^3/uL (0-0.05); Absolute Lymphocytes 0.4 10^3/uL (1.2-3.4); Absolute Monocytes 1.2 10^3/uL (0.1-0.6); Absolute Neutrophils 15.5 10^3/uL (1.4-6.5); Hematocrit 37.6 % (37.0-47.0); Hemoglobin 12.8 g/dL (12.0-16.0); Mean Corpuscular Hgb 31.5 pg (27.0-31.0); Mean Corpuscular Volume 92.6 fL (81.0-99.0); Mean Platelet Volume 10.6 fL (7.4-10.4); Nucleated Red Blood Cells % 0.1 %; Platelet Count 191 10^3/uL (130-400); Red Blood Cell Count 4.06 10^6/uL (4.20-5.40); Red Cell Dist. Width 21.2 % (11.5-14.5); White Blood Cell Count 17.3 10^3/uL (4.8-10.8)
[2024-07-02] MEDS: LAC HYDRIN, AM LACTIN LOTION 1 APPLIC TOPICAL (08:47)
[2024-07-02 08:51] LABS: NT-proBNP > 27000 pg/ml
[2024-07-02 09:37] LABS: Calcium 8.6 mg/dl (8.4-10.2); Carbon Dioxide 21 mmol/L (22-30); Chloride 101 mmol/L (98-107); Estimated Creatinine Clearance 27 ml/min; Glucose 31 mg/dl (70-99); Magnesium 3.1 mg/dl (1.6-2.3); Potassium 5.9 mmol/L (3.5-5.1); Sodium 145 mmol/L (135-145); eGFR 26.36
[2024-07-02 09:46] LABS: Glucose - Point of Care 44 mg/dl (70-99)
[2024-07-02 09:47] LABS: Blood Urea Nitrogen 128 mg/dl (7-17)
[2024-07-02 10:12] LABS: Glucose - Point of Care 182 mg/dl (70-99)
--- NOTE | 2024-07-02 10:20 | W.PN.ANESINT ---
Anesthesia Intubation Note
- Intubation Note
Intubation Note:
Diagnosis: Cardiac arrest
Blade: Ord # 4
Tube Size: 8.0
Depth: 22 cm at right lip
Side Taped: right
Drugs Used: succinylcholine 100 mg IV
Grade View: Grade 1
EtCO2 Present: + ETCO2 via stat cap and then continuous CO2 monitor
Atraumatic:
yes
Attempts: 1
Insertion Start and Stop Time: 2855-4763
SaO2 Pre: code
SaO2 Post: code
Glidescope Used:yes
Other Airway Adjustments:
Pre-Oxygenated: ambu bag by respiratory on arrival
Portable Chest X-Ray: pending
RSI:
Suctioned:
Bilateral Breath Sounds Confirmed: yes
Vent Settings: ambu bag ventilation continues via ETT
Chest compressions/code in progress by code team on arrival..Pt with clenched jaw, succs 100 mg given to secure airway in critical situation.
Intubated atraumatically and easily, all dentition intact. Code/chest compressions continue, left in care of code team.
See flow sheet for vent settings and further care.
Settings per ___Attending Physician
--- NOTE | 2024-07-02 10:36 | RR ---
A Rapid Response was called on this patient, please see Rapid Response form. Rapid response called and then code as patient became unresponsive with loss of pulse. Code team arrived.
--- NOTE | 2024-07-02 10:58 | W.PN.UPDATE ---
Update Note
Progress Note Update
Called to see patient for low blood sugar of 31 and nurse notified calling a rapid response. Arrived to patient bedside to find patient unresponsive with agonal breathing. 1 amp of D50 given with improvement of blood sugar to 181. No improvement
to patient's mentation or breathing. Pulse lost. CPR started. Code 9 called. See code 9 sheet for details. Briefly, approximately 50 minutes of high-quality CPR with 7 A of epi, 3 A of bicarb, normal saline wide open, Levophed drip all started
without improvement. Patient had episodes of return of spontaneous circulation but was not sustained. Code was continued upon arrival to the intensive care unit. Unfortunately, patient at 10:51 AM on July 02, 2024. Family aware.
--- NOTE | 2024-07-02 11:15 | PTCARENOTE ---
Lab called with critical glucose of 31. I went into room and gave patient juice, finger stick of 44. Pt was able to take some sips of juice then patient became unresponsive. Rapid/Code 9 called. Verbal order taken from Dr Maurice to give full amp
of D50.
--- NOTE | 2024-07-02 11:19 | W.PN.CARDCBS ---
Today's Communication / Plan
-
Patient with PEA cardiac arrest
Given epinephrine bicarbonate and intubated and transferred to ICU
Family wishes full code
Impression / Plan
-
.
PCP: Cris Avilez PA-C
Product Assurance Engineer: Dr. Ott
Impression:
Cardiac arrest with PEA rhythm
Admitted with acute on chronic hypoxic respiratory failure and acute HF 06/27/24
Acute on chronic HFmrEF 10/01/23
EF 45-50% by echo 10/01/23
ALMA on CKD 3b
Chronic hypoxic respiratory failure on home oxygen 2 L via NC
Abnormal chest x-ray
frequent PVCs and bigeminy
Asthma/COPD
Chronic Lymphedema and chronic venous stasis changes
Epistaxis
Hypertension
HLD
DM II
MARIAMA, untreated
Peripheral Neuropathy
History of DVT
Morbid Obesity
Medication and dietary non-adherence
Echo 08/22/21:�LVEF 53%, mild LVH, Mild MR, Mild 20/10 PRECIOUS 1.7cm2, mild AI
Echo 03/24/22: Technically limited study and patient was scanned in a wheelchair. No regional wall motion abnormalities are seen. LV ejection fraction is 53% by Phan's biplane method�of discs. Mild left ventricular hypertrophy. Normal diastolic
function. Mild mitral regurgitation is seen. This may be underestimated due to acoustic shadowing. Mild aortic stenosis. Peak/mean gradients across the aortic valve 20/10 mmHg. Using an LVOT diameter�of 2.0 cm the aortic valve by the Continuity
equation is calculated at 1.7 cm2. Mild aortic regurgitation.
Echo 12/18/2022:�EF 40-45%, global hypokinesis, moderate cLVH, stage II diastolic dysfunction, mild MS, mild MR, severely dilated LA, moderate with peak/mean gradients 45/20 mmHg, PRECIOUS 1.2 cm2, mild AR, mild TR, estimated PAP 42 mmHg,
Echo 03/16/2023: EF 45-50%, moderate cLVH, global hypokinesis, mild MR, mild to moderate with peak/mean gradients 21/12 mmHg, mild TR, estimated PAP 30-35 mmHg
ECHO 10/01/23: EF 45 to 50%, global hypokinesis, moderate to severe concentric LVH, stage II diastolic dysfunction, mildly dilated RV, mitral sclerosis, mild to moderate , peak/mean gradients 26/18 mmHg, mild AR, mild to moderate TR, PAP 60 to 65
mmHg
Echo 06/30/2024: EF 40 to 45%, stage I diastolic dysfunction, trace MR, no AAS, mild to moderate aortic regurgitation, severe TR with PAP 65 mmHg, severely dilated RA, severely dilated and hypocontractile RV, compared to echo 11/2023 the RV appears
more dilated and hypocontractile and the TR is worse
Plan:
Called to see patient with cardiac arrest
PEA rhythm noted
CPR performed several rounds of epinephrine with intermittent return of pulse
Patient transferred to ICU after being intubated
Unable to get blood pressure and plan is for an epinephrine drip
Labs returned with creatinine of 1.9 and potassium of 5.9
Was given 2 amps of sodium bicarbonate as well
Discussed in detail with patient's daughter and she wishes everything to be done until she can come to the hospital with her brothers.
Prognosis is very poor and not likely to come off the ventilator
Critical care time 45-minute
Progress Note - Product Assurance Engineer
Subjective
Date of Service: July 02, 2024
Called to see patient for cardiac code
Objective
Labs:
07/02/24 07:26
07/02/24 07:26
Labs
Hgb 12.8 g/dL (12.0-16.0) 07/02/24 07:26
Hct 37.6 % (37.0-47.0) 07/02/24 07:26
Plt Count 191 10^3/uL (130-400) 07/02/24 07:26
Sodium 145 mmol/L (135-145) 07/02/24 07:26
Potassium 5.9 mmol/L (3.5-5.1) H 07/02/24 07:26
BUN 128 mg/dl (7-17) H* 07/02/24 07:26
Creatinine 1.9 mg/dL (0.6-1.0) H 07/02/24 07:26
Glucose 31 mg/dl (70-99) L* 07/02/24 07:26
Vital Signs and I&O:
Vital Signs
Temp Pulse Resp BP Pulse Ox
97.8 F 83 22 88/62 95
07/02/24 07:00 07/02/24 08:20 07/02/24 08:20 07/02/24 08:20 07/02/24 08:20
Vital Signs
Temp Pulse Resp BP Pulse Ox
97.8 F 83 22 88/62 95
07/02/24 07:00 07/02/24 08:20 07/02/24 08:20 07/02/24 08:20 07/02/24 08:20
Intake & Output
06/30/24 07/01/24 07/02/24 07/03/24
06:59 06:59 06:59 06:59
Intake Total 300 / 300 940 / 940
Output Total 1225 / 1225 1150 / 1150 400 / 400
Balance -1225 / -1225 -850 / -850 540 / 540
Physical Exam
Physical Exam
General: Unresponsive
Neck: Supple, no JVD, HJR, carotids +2 B/L, no bruits bilaterally.
Heart: Non displaced PMI, RRR, no murmurs, No S3, S4, no rubs.
Lungs: Scattered rhonchi with poor effort
Extremities: Chronic venous stasis changes and chronic lymphedema
Neuro: Unresponsive
--- NOTE | 2024-07-02 11:33 | W.DCSUMMARY ---
Addendum entered and electronically signed by Kori Maurice MD 07/02/24 17:31:
Read, reviewed, and agree. See same day progress note for additional details. Time spent coordinating care, DC planning, review of DC plan of care with resident, transition of care, review of records in EMR, med rec, consults, notes, d/w
consultants, nursing, family, and CM = 60 minutes
Called to see patient for low blood sugar of 31 and nurse notified me of calling a rapid response. Arrived to patient bedside to find patient unresponsive with agonal breathing. 1 amp of D50 given with improvement of blood sugar to 181. No
improvement to patient's mentation or breathing. Pulse lost. CPR started. Code 9 called. See code 9 sheet for details. Briefly, approximately 50 minutes of high-quality CPR with intubation, 7 Amps of epi, 3 Amps of bicarb, normal saline wide
open, Levophed drip all started without improvement. Patient had episodes of return of spontaneous circulation but was not sustained. Code was continued upon arrival to the intensive care unit. Unfortunately, patient at 10:51 AM on
July 02, 2024. Family aware.
Original Note:
Discharge Summary
Discharge Data
Date of Admission: 06/27/24
Date of Discharge: 07/02/24
-
Pending Results: No
Hospital Course
Discharging Physician : ,
Disposition :
Primary care physician : Salinas Colon MD
Principal Discharge diagnosis : Acute on chronic HFrEF exacerbation- cause of PEA arrest, pulm hypertension, heart failure with reduced ejection fraction
Chronic Discharge diagnosis : hypertension, hyperlipidemia, HFrEF, CKD stage III, asthma , chronic hypoxic respiratory failure with home oxygen, peripheral neuropathy, history of DVT
Hospital Course : This patient is an 78-year-old female patient with PMH significant for HFrEF and chronic hypoxic respiratory failure with home oxygen who was presented to the ED with shortness of breath and weight gain. Supplemental oxygen was
continued and IV Lasix was started. Pulmonology consulted. Patient still continue to retain weight and therefore IV Lasix was increased as per cardiology. Chest x-ray was done that showed possible right pleural effusion and patient was scheduled
for thoracentesis but was found to have insufficient fluid for procedure. Patient then that started to experience multiple bouts of epistaxis where one episode was uncontrollable and ENT was consulted. Patient was taken off of anticoagulants
except for aspirin. Patient underwent packing in the right nostril and was started on prophylactic antibiotics. Echo was done which showed worsening right ventricle function. Due to possibility of PE, V/Q scan and Doppler of lower extremities
were done which showed low probability of PE and no DVT respectively. Due to worsening condition, discussion was broached with family about palliative care/hospice. On 07/02/2024, patient became unresponsive and code 9 was called where high-quality
CPR/resuscitative measures were begun. Unfortunately patient at 10:51 AM on July 02, 2024 and family was called and made aware.
Important imaging findings :
06/29/2024 CXR: Right basilar opacity suspicious for pleural fluid
06/30/2024 chest ultrasound: Small right pleural effusion; amount of fluid present not sufficient for safe thoracentesis
07/01/2024 ultrasound lower extremities: No DVT
07/01/2024 lung scan V/Q: Low probability of PE
Discharge Plan
-
Patient Disposition:
Date/Time
Date/Time: 07/02/24 14:18
Discharge Date and Time
Discharge Date/Time: 07/02/24 14:18
Print Language: TAMAZIGHT
--- NOTE | 2024-07-02 14:17 | CHAP ---
Responded to code 9 in 320 - no family present at that time. After Carmen was transferred to ICU, I met with son, Renny, in waiting room. Med staff came to advise Renny that efforts to revive his mother were unsuccessful. Other family
arrived, including Bishnu's brothers and sister, their spouses and sons. Emotional and spiritual support provided. The family members went individually or in small numbers to see Carmen. During this long time in the waiting room, we talked about
Carmen, and about next steps. Family supported one another, bonded in shared grief and love. Finally we all went in together to offer prayers commending Carmen to God, giving thanks for her life and love. Assurance of our on-going
availability given.
--- NOTE | 2024-07-02 14:19 | PTCARENOTE ---
CALCULATING MACHINE MECHANIC and then code 9 called on patient. patient 1050.
== END 2024-07-02 14:18 | disposition expired | DRG 291 ==
LOC: ICU 19:11
PROVIDERS: Emergency Medicine; Internal Medicine; Nurse Practitioner Family; Specialist; Student in an Organized Health Care Education/Training Program; ADMITTING PHYSICIAN Hospitalist; ATTENDING PHYSICIAN Internal Medicine; CONSULT PHYSICIAN Internal Medicine Critical Care Medicine; CONSULT PHYSICIAN Internal Medicine Nephrology; CONSULT PHYSICIAN Nuclear Medicine Nuclear Cardiology; CONSULT PHYSICIAN Otolaryngology; EMERGENCY PHYSICIAN Emergency Medicine; FAMILY PHYSICIAN Family Medicine
PROC: 5A12012 Performance of Cardiac Output, Single, Manual (ICD-10-PCS; 2024-07-02)
PROC: 0BH17EZ Insertion of Endotracheal Airway into Trachea, Via Natural or Artificial Opening (ICD-10-PCS; 2024-07-02)
PROC: 5A1935Z Respiratory Ventilation, Less than 24 Consecutive Hours (ICD-10-PCS; 2024-07-02)
DX: I13.0 Hypertensive heart and chronic kidney disease with heart failure and stage 1 through stage 4 chronic kidney disease, or unspecified chronic kidney disease (principal); I50.23 Acute on chronic systolic (congestive) heart failure; L89.153 Pressure ulcer of sacral region, stage 3; L89.613 Pressure ulcer of right heel, stage 3; J96.21 Acute and chronic respiratory failure with hypoxia; L03.116 Cellulitis of left lower limb; N17.9 Acute kidney failure, unspecified; E87.3 Alkalosis; I46.2 Cardiac arrest due to underlying cardiac condition; N18.32 Chronic kidney disease, stage 3b; E11.22 Type 2 diabetes mellitus with diabetic chronic kidney disease; E78.00 Pure hypercholesterolemia, unspecified; I49.3 Ventricular premature depolarization; E11.40 Type 2 diabetes mellitus with diabetic neuropathy, unspecified; I87.8 Other specified disorders of veins; R04.0 Epistaxis; J44.9 Chronic obstructive pulmonary disease, unspecified; E87.6 Hypokalemia; G47.33 Obstructive sleep apnea (adult) (pediatric); E66.01 Morbid (severe) obesity due to excess calories; I95.9 Hypotension, unspecified; I08.3 Combined rheumatic disorders of mitral, aortic and tricuspid valves; I27.20 Pulmonary hypertension, unspecified; E11.649 Type 2 diabetes mellitus with hypoglycemia without coma; F51.04 Psychophysiologic insomnia; I89.0 Lymphedema, not elsewhere classified; Z60.2 Problems related to living alone; Z86.718 Personal history of other venous thrombosis and embolism; Z87.01 Personal history of pneumonia (recurrent); Z88.8 Allergy status to other drugs, medicaments and biological substances; Z88.6 Allergy status to analgesic agent; Z88.1 Allergy status to other antibiotic agents; Z91.040 Latex allergy status; Z79.82 Long term (current) use of aspirin; Z79.51 Long term (current) use of inhaled steroids; Z99.81 Dependence on supplemental oxygen; Z91.119 Patient's noncompliance with dietary regimen due to unspecified reason; Z91.148 Patient's other noncompliance with medication regimen for other reason; Z68.39 Body mass index [BMI] 39.0-39.9, adult; Z11.52 Encounter for screening for COVID-19; Z86.16 Personal history of COVID-19; Z99.3 Dependence on wheelchair; Z80.6 Family history of leukemia; Z80.43 Family history of malignant neoplasm of testis; Z83.49 Family history of other endocrine, nutritional and metabolic diseases; Z83.2 Family history of diseases of the blood and blood-forming organs and certain disorders involving the immune mechanism; Z83.6 Family history of other diseases of the respiratory system
CPT/HCPCS: 36600; 71046; 76604; 78582; 80048; 80053; 80061; 82570; 82805; 82962; 83735; 83880; 84132; 84300; 84302; 85025; 85027; 87502; 87811; 93005; 93306; 93970; 94640; 96374; 99285; A9540; A9567